=== PATIENT | female | born 1945 | race Caucasian/White ===

== ENCOUNTER → 2016-11-19 | Outpatient (CLI) | payer OTHER ==
[~2016-11-19] MED LIST: ASPEC81 PO; ASPI81TA21 PO; BIOT1TAB5 PO; CALCTAB7 PO; CLBCR60 TOP; CLC100 PO; CLOB-65 EXT; CLOB1SHA TOP; FLNIN/ NAE; LEVO100T PO; LISI-461 PO; LPR25 PO; LPT10 PO; LPT40 PO; LSN5 OR; MRLP527 PO; MULT-671 PO; NTRSLP4 SL; OPTIRAY 320 IV PRN; PLQ200 PO; PLV75 PO; PROB1CAP41 PO; SENN-65 PO; SODI1.1P PO; TBROPO OPL; VTMD1000 PO; ZOLE5INJ IV
--- NOTE | 2016-11-19 09:32 | DIAGNOSTIC IMAGING REPORT ---
HEAD CTA HISTORY: Acute loss of left-sided vision. Stroke symptoms. TECHNIQUE: Multiaxial CT images of the head were performed both before and after the intravenous administration of contrast to evaluate the major cerebral vessels. Maximum intensity projection images were also obtained. COMPARISON: Head CT 11/05/2016. FINDINGS: There is no mass, hematoma, midline shift, or acute infarct. Bilateral mastoid effusions persist. Old lacunar infarct within the right basal ganglia. Patchy periventricular white matter hypodensity is consistent with microvascular ischemic change. This also remains unchanged. Visualized intracranial internal carotid arteries, distal vertebral arteries, and basilar artery are widely patent. There is no significant stenosis, occlusion, or aneurysm seen within the bilateral ACAs, MCAs, or mold parter. The bilateral P1 segments are hypoplastic which is considered to be a normal variant. IMPRESSION: No significant stenosis, occlusion, or aneurysm within the [place]. No acute infarct or intracranial hemorrhage. Stable bilateral mastoid effusions. Electronically signed by: Tung Godinez M.D. 11/19/2016 9:31 AM
--- NOTE | 2016-11-19 09:35 | DIAGNOSTIC IMAGING REPORT ---
CT ANGIOGRAPHY OF THE NECK WITH CONTRAST CLINICAL HISTORY: Acute left-sided vision loss. Stroke syndrome. COMPARISON STUDY: Carotid ultrasound May 21, 2012 Technique: CT angiography of the carotid and vertebral arteries was obtained using [employer] 320 IV and 3D reconstruction on an independent workstation. NASCET criteria was utilized. CT DOSE: 827.36 mGy.cm Findings: The lung apices are clear. There is no cervical lymphadenopathy. No masses are identified within the neck by CT. The caliber of the aortic arch is normal. There is minimal atherosclerotic plaque of the arch. The origins of the brachiocephalic trunk, common carotid and internal carotid arteries are patent. No significant stenosis is identified. There is minimal atherosclerotic plaque within the major vasculature of the neck. The bilateral vertebral arteries are patent. The right vertebral artery is dominant. There is no dissection. Mixing artifact is noted within the proximal left internal carotid artery. IMPRESSION: 1. No stenosis within the major vessels of the neck. Minimal scattered atherosclerotic plaque. 2. Unremarkable CTA of the neck. Electronically signed by: Christian Zambrano M.D. 11/19/2016 9:33 AM
== END | disposition home or self-care (01) ==
LOC: C.CTS 08:43
PROVIDERS: ATTEND Psychiatry & Neurology Neurology
DX: H53.132 Sudden visual loss, left eye (principal); I63.9 Cerebral infarction, unspecified

== ENCOUNTER → 2016-11-22 | Outpatient (CLI) | payer OTHER ==
[~2016-11-22] MED LIST changes: -OPTIRAY 320 IV PRN
--- NOTE | 2016-11-22 13:22 | DIAGNOSTIC IMAGING REPORT ---
Brain MRI WITHOUT CONTRAST HISTORY: H53.132 Acute loss of vision, [id number] TECHNIQUE: Multiplanar multisequence MRI of the brain was performed without the use of contrast. COMPARISON STUDY: Head CTA 11/19/2016. Brain MRI 08/06/2016. FINDINGS: There is no mass, hematoma, midline shift, or acute infarct. The paranasal sinuses are clear. Chronic mastoid effusions persist.. The ventricles and sulci demonstrate mild age-related involutional changes. Scattered foci of T2 hyperintensity seen within the periventricular and subcortical white matter are nonspecific but suggestive of mild microvascular ischemic changes. This also remains unchanged. The major vascular flow voids at the skull base are well-maintained. There is an old lacunar infarct within the right basal ganglia IMPRESSION: No acute intracranial abnormality. Scattered foci of T2 hyperintensity seen within the periventricular and subcortical white matter are nonspecific but favor microvascular ischemic change. This remains unchanged. Chronic mastoid effusions. Electronically signed by: Tung Godinez M.D. 11/22/2016 1:20 PM
--- NOTE | 2016-11-22 17:15 | ECHOCARDIOGRAM REPORT ---
*NOTICE TO RECEIVING LIBERTARIAN AGENCY This information is strictly Confidential and protected under [place] law. [place] law prohibits you from making any further disclosure of this information unless further disclosure is expressly permitted by the written consent of the person to whom it pertains or is authorized by law. A general authorization for the release of medical or other information is not sufficient for this purpose. Hospital accepts no responsibility if the information is made available to any other person, INCLUDING THE PATIENT. Interpretation Summary * Name: ISADORA BOOKER Study Date: 11/22/2016 01:55 PM BP: 157/94 mmHg * Patient Location: [facility] HR: 63 * : 1945 (M/d/yyyy) Gender: Female Height: 62 in * Age: 71 yrs Ethnicity: [place] Weight: 100 lb * Ordering Physician: LEONARDO GARCIA DO * Performed By: Ana Maria Lisa RCS * * Reason For Study: ACUTE LOSS OF VISION / STROKE SYNDROME * BSA: 1.4 m2 * -- Conclusions -- * 1. Normal LV size with mild concentric LVH. * 2. Normal LV systolic function. LVEF 60-65%. No regional wall motion abnormalities. * 3. Normal RV size and function. * 4. No significant valvular pathology. * 5. Positive saline contrast study suggestive of small PFO. * 6. Grade I diastolic dysfunction. * 7. Compared with prior study on 12/30/2012: No significant changes. Procedure Details * A complete two-dimensional transthoracic echocardiogram was performed (2D, M-mode, Doppler and color flow Doppler). * A saline contrast injection was performed to assess for cardiac shunting. * The injection was performed through an intravenous line in the left arm. * The attending nurse who injected the saline contrast was CB GUAJARDO RN. * A total of 30 cc of agitated saline was given. Left Ventricle * The left ventricle is grossly normal size. * There is mild concentric left ventricular hypertrophy. * Ejection Fraction = 60-65%. Right Ventricle * The right ventricle is grossly normal size. * The right ventricular systolic function is normal as assessed by tricuspid annular plane systolic excursion (TAPSE) (normal >1.5 cm). Atria * The left atrium is mildly dilated. * Right atrial size is normal. * Contrast injected: positive for intraatrial shunt. Likely small PFO Mitral Valve * The mitral valve is grossly normal. * There is no mitral valve stenosis. * There is trace mitral regurgitation. Tricuspid Valve * The tricuspid valve is not well visualized, but is grossly normal. * There is no tricuspid stenosis. * There is trace tricuspid regurgitation. Aortic Valve * The aortic valve opens well. * The aortic valve is tricuspid. The leaflet thickness if normal. There is no aortic stenosis, and no significant insufficiency. * Aortic valve leaflets thickened * No hemodynamically significant valvular aortic stenosis. * Trace aortic regurgitation. Pulmonic Valve * The pulmonary valve is inadequately visualized, but the Doppler data is adequate for interpretation. * There is no pulmonic valvular stenosis. * There is no pulmonic valvular regurgitation. Great Vessels * The aortic root and proximal ascending aorta are normal sized. Pericardium/Pleural * There is no pericardial effusion. Great Vessels * Normal inferior vena cava size and collapsability with sniff indicates a normal right atrial pressure of 3 mmHg Left Ventricular Diastolic Function * Grade I diastolic dysfunction, (abnormal relaxation pattern). MMode 2D Measurements and Calculations IVSd 1.2 cm IVSs 1.3 cm LVIDd 3.8 cm LVIDs 2.6 cm LVPWd 1.1 cm LVPWs 1.3 cm IVS/LVPW 1.1 FS 31.5 % EDV(Teich) 62.3 ml ESV(Teich) 24.9 ml EF(Teich) 60.1 % EDV(cubed) 55.3 ml ESV(cubed) 17.8 ml EF(cubed) 67.8 % % IVS thick 8.2 % % LVPW thick 10.7 % LV mass(C)d 152.5 grams LV mass(C)dI 107.1 grams/m\S\2 LV mass(C)s 104.2 grams LV mass(C)sI 73.2 grams/m\S\2 SV(Teich) 37.5 ml SI(Teich) 26.3 ml/m\S\2 SV(cubed) 37.5 ml SI(cubed) 26.3 ml/m\S\2 Ao root diam 3.1 cm Ao root area 7.7 cm\S\2 ACS 1.6 cm LA dimension 3.1 cm LA/Ao 0.98 LVOT diam 1.9 cm LVOT area 3.0 cm\S\2 LVAd ap4 22.4 cm\S\2 LVLd ap4 6.2 cm EDV(MOD-sp4) 68.2 ml EDV(sp4-el) 68.9 ml LVAs ap4 10.1 cm\S\2 LVLs ap4 4.5 cm ESV(MOD-sp4) 21.0 ml ESV(sp4-el) 19.6 ml EF(MOD-sp4) 69.2 % EF(sp4-el) 71.6 % LVAd ap2 22.0 cm\S\2 LVLd ap2 6.6 cm EDV(MOD-sp2) 61.9 ml EDV(sp2-el) 62.6 ml LVAs ap2 11.4 cm\S\2 LVLs ap2 5.0 cm ESV(MOD-sp2) 21.6 ml ESV(sp2-el) 22.0 ml EF(MOD-sp2) 65.2 % EF(sp2-el) 64.8 % LVLd %diff 6.0 % EDV(MOD-bp) 65.0 ml LVLs %diff 11.3 % ESV(MOD-bp) 22.5 ml EF(MOD-bp) 65.3 % SV(MOD-sp4) 47.2 ml SI(MOD-sp4) 33.1 ml/m\S\2 SV(MOD-sp2) 40.4 ml SI(MOD-sp2) 28.3 ml/m\S\2 SV(MOD-bp) 42.5 ml SI(MOD-bp) 29.8 ml/m\S\2 SV(sp4-el) 49.4 ml SI(sp4-el) 34.7 ml/m\S\2 SV(sp2-el) 40.5 ml SI(sp2-el) 28.5 ml/m\S\2 Doppler Measurements and Calculations MV E max stephanie 48.0 cm/sec MV A max stephanie 59.3 cm/sec MV E/A 0.81 MV P1/2t max stephanie 54.8 cm/sec MV P1/2t 78.5 msec MVA(P1/2t) 2.8 cm\S\2 MV dec slope 204.4 cm/sec\S\2 MV dec time 0.13 sec Ao V2 max 94.2 cm/sec Ao max PG 3.5 mmHg Ao max PG (full) 1.7 mmHg GABRIEL(V,A) 2.1 cm\S\2 GABRIEL(V,D) 2.1 cm\S\2 LV V1 max PG 1.8 mmHg LV V1 max 67.9 cm/sec TR max stephanie 204.8 cm/sec
== END | disposition home or self-care (01) ==
LOC: C.CPL 12:16
PROVIDERS: ATTEND Psychiatry & Neurology Neurology
DX: H53.132 Sudden visual loss, left eye (principal); I63.9 Cerebral infarction, unspecified

== ENCOUNTER → 2017-01-28 | Outpatient (CLI) | payer OTHER ==
--- NOTE | 2017-01-29 10:57 | MAMMOGRAPHY REPORT ---
BILATERAL DIGITAL SCREENING MAMMOGRAM WITH CAD: 01/28/2017 CLINICAL HISTORY: Routine screening. Patient has no complaints. TECHNIQUE: Bilateral CC and MLO views were obtained. Current study was also evaluated with a Comput er Aided Detection (CAD) system. COMPARISON: Comparison is made to exams dated: 01/26/2016 mammogram, 01/18/2014 mammogram, 01/19/2015 ma mmogram, 01/16/2013 mammogram, 01/11/2012 mammogram, and 01/10/2011 mammogram - [facility] nter. BREAST COMPOSITION: The tissue of both breasts is extremely dense, which lowers the sensitivity of mammography. FINDINGS: There are scattered stable benign-appearing round microcalcifications. No new suspicious mass, architectural distortion or cluster of microcalcifications is seen. IMPRESSION: ACR BI-RADS CATEGORY 1: NEGATIVE There is no mammographic evidence of malignancy. A 1 year screening mammogram is recommended. The p atient will receive written notification of the results. Approximately 10% of breast cancers are not detected with mammography. A negative mammographic repor t should not delay biopsy if a clinically suggestive mass is present. Anabelle Orlando M.D. ay/:01/28/2017 17:02:55 Senior Coldfusion Developer: Jeane WASHBURN(R)(M), [facility] letter sent: Normal 1/2 BI-RADS Code: ACR BI-RADS Category 1: Negative
== END | disposition home or self-care (01) ==
LOC: C.MAMM 08:55
PROVIDERS: ATTEND Internal Medicine
DX: Z12.31 Encounter for screening mammogram for malignant neoplasm of breast (principal)

== ENCOUNTER → 2017-04-30 | Outpatient (CLI) | payer OTHER ==
--- NOTE | 2017-04-30 09:09 | DIAGNOSTIC IMAGING REPORT ---
CHEST CT WITHOUT CONTRAST CT DOSE: 191.57 mGy.cm HISTORY: R91.1 Lung [id number] TECHNIQUE: Multiaxial CT images of the chest were performed without contrast. COMPARISON: Chest CT 06/24/2016. FINDINGS: No significant change in the 5.5 mm bilobed nodule within the right upper lobe. Partial opacification of the distal right middle lobe bronchi with a small area of focal consolidation within the medial aspect of the right middle lobe. This is not significantly changed. No new focal lung consolidations. Healed inferior sternal fracture. Old, healed bilateral anterior rib fractures. The visualized spleen is unremarkable. Small hiatus hernia. No mediastinal or hilar lymphadenopathy. The heart is normal in size. Normal caliber thoracic aorta. IMPRESSION: 1. No significant change in the 5.5 mm right upper lobe bilobed nodule. This is stable dating back to a 01/30/[address] 2. No change in the partially opacified right middle lobe bronchi and small focal area of consolidation within the medial aspect of the right middle lobe. Electronically signed by: Tung Godinez M.D. 04/30/2017 9:08 AM Dictated Date/Time: 04/30/2017 8:56 AM
== END | disposition home or self-care (01) ==
LOC: C.CTS 08:02
PROVIDERS: ATTEND Internal Medicine Pulmonary Disease
DX: R91.1 Solitary pulmonary nodule (principal)

== ENCOUNTER 2017-07-12 23:09 | Inpatient (IN) | payer OTHER ==
[~2017-07-12] VITALS: Ht 157.5 cm; Wt 46.5 kg
[~2017-07-12 23:09] MED LIST changes: -ASPEC81 PO; -CLBCR60 TOP; -CLOB1SHA TOP; -LISI-461 PO; -LPR25 PO; -LPT10 PO; -LPT40 PO; -LSN5 OR; -NTRSLP4 SL; -PLV75 PO; -SENN-65 PO; -SODI1.1P PO
[2017-07-12] MEDS ORDERED: ASPIRIN 81 MG CHEW PO STA (23:24)
--- NOTE | 2017-07-12 23:39 | EMERGENCY ROOM VISIT NOTE ---
History Report prepared by Teresa: Blanka Colunga Under the Supervision of: Dr. Aaron Sims D.O. First contact with patient: 23:17 Chief Complaint: CHEST PAIN Stated Complaint: CHEST PAIN DOWN L ARM History of Present Illness The patient is a 71 year old female who presents to the Emergency Room with complaints of chest pain and pain down her left arm which started two days ago. The patient notes that she had no discomfort until she went to bed an hour ago. She states that her pain worsened and started to go into her left breast. She notes that her symptoms worsen with touch and when she is laying flat. The patient has shortness of breath when laying flat. She denies nausea or vomiting. The patient had an MRI today, which was normal. The patient has a history of Lupus, hip transplant, two strokes, and she is legally blind. The patient had a stress test a year ago. Source of History: patient Onset: 2 days ago Position: chest (left), arm (left) Timing: constant Modifying Factors (Worsening): other (touch and laying flat) Associated Symptoms: + SOB (when laying flat), No nausea, No vomiting Review of Systems See HPI for pertinent positives & negatives. A total of 10 systems reviewed and were otherwise negative. Past Medical & Surgical Medical Problems: (1) AMI (acute myocardial infarction) (2) Back surgery (3) Blood clots (right eye) (4) Diab Sil Wo Compl, Type Ii Or Unspec Type, Not Uncntrld (5) Heart disease (6) Hypertension Nos (7) Hypothyroidism Nos (8) Hysterectomy (9) Lupus (10) Personal Hx Of Tia,& Cerebral Infarction W/Out Res Deficits (11) Pneumonia Surgical Problems: (1) History of hysterectomy Family History Cancer Heart disease Hypertension Social History Smoking Status: Never Smoker Alcohol Use: occasionally, other Marital Status: Housing Status: lives with significant other Occupation Status: retired Current/Historical Medications Scheduled Atorvastatin (Atorvastatin Calcium), 10 MG PO DAILY Biotin (Biotin), 1,000 MCG PO DAILY Calcium Carbonate-Vitamin D W/ (Caltrate 600 Plus), 2 TABS PO QAM Cholecalciferol (Vitamin D3), 2,000 INTER.UNIT PO QAM Clobetasol Propionate (Clobetasol Propionate), 1 APPLN TOP 3XWK Clopidogrel Bisulfate (Clopidogrel), 75 MG PO DAILY Docusate Sodium (Docusate Sodium), 100 MG PO BID Hydroxychloroquine Sulfate (Hydroxychloroquine Sulfat), 200 MG PO HS Levothyroxine Sodium (Synthroid), 100 MCG PO QAM Lisinopril (Lisinopril), 10 MG PO DAILY Multiple Vitamins W/ Minerals (Multi Complete/Iron), 1 TAB PO DAILY Polyethylene (Polyethylene Glycol 3350), 34 GM PO QAM Probiotic Product (Probiotic Daily), 1 CAP PO QAM Sodium Fluoride (Dental) (Prevident 5000 Dry Mouth), 1 APPLN PO DAILY Scheduled PRN Clobetasol Propionate (Clobetasol Propionate), 1 APPLN TOP BID PRN for FLARES Fluticasone Propionate (Fluticasone Propionate), 2 SPRAYS PAUL DAILY PRN for Nasal Congestion Allergies Coded Allergies: Venlafaxine (Unverified Allergy, Mild, RASH, 07/13/17) Sulfa Antibiotics (Verified Allergy, Unknown, UNKNOWN REACTION TO SULFA DRUGS, 07/13/17) Physical Exam Vital Signs Date Time Temp Pulse Resp B/P (MAP) Pulse Ox O2 Delivery O2 Flow Rate FiO2 07/13/17 01:16 36.4 72 18 143/97 97 Room Air 07/13/17 00:47 36.7 86 16 183/118 100 07/13/17 00:43 183/118 07/13/17 00:26 164/116 07/13/17 00:19 86 16 100 07/13/17 00:14 87 16 95 07/13/17 00:12 168/104 07/13/17 00:11 173/107 07/12/17 23:44 83 20 07/12/17 23:39 84 18 96 Room Air 07/12/17 23:36 158/109 07/12/17 23:33 85 07/12/17 23:30 100 Room Air 07/12/17 23:30 100 Room Air 07/12/17 23:30 100 Room Air 07/12/17 23:13 36.7 85 18 136/93 100 Room Air Physical Exam GENERAL: Patient is awake, alert, and in no acute distress. Patient is resting comfortably and somewhat anxious EYES: The conjunctivae are clear. The pupils are round and reactive. EARS, NOSE, MOUTH AND THROAT: The nose is without any evidence of any deformity. Mucous membranes are moist tongue is midline NECK: The neck is nontender and supple. RESPIRATORY: Normal respiratory effort is noted there is no evidence of wheezing rhonchi or rales CARDIOVASCULAR: Regular rate and rhythm noted there no murmurs rubs or gallops normal S1 normal S2 GASTROINTESTINAL: The abdomen is soft. Bowel sounds are present in all quadrants. Abdomen is nontender MUSCULOSKELETAL/EXTREMITIES: There is no evidence of gross deformity full range of motion is noted in the hips and shoulders SKIN: There is no obvious evidence of any rash. There are no petechiae, pallor or cyanosis noted. NEUROLOGIC: Patient is awake alert and oriented x3 Medical Decision & Procedures ER Provider Diagnostic Interpretation: Radiology results as stated below per my review and radiologist interpretation: CHEST XRAY Hyper inflation, no free air, no definite infiltrate, no acute disease. Laboratory Results 07/12/17 23:31 Red Blood Count 4.09, Mean Corpuscular Volume 88.0, Mean Corpuscular Hemoglobin 31.3, Mean Corpuscular Hemoglobin Concent 35.6, Mean Platelet Volume 9.7, Neutrophils (%) (Auto) 59.9, Lymphocytes (%) (Auto) 23.7, Monocytes (%) (Auto) 14.4, Eosinophils (%) (Auto) 1.1, Basophils (%) (Auto) 0.6, Neutrophils # (Auto ) 2.13, Lymphocytes # (Auto) 0.84, Monocytes # (Auto) 0.51, Eosinophils # (Auto ) 0.04, Basophils # (Auto) 0.02 Test 07/12/17 23:31 07/12/17 23:35 07/13/17 01:22 07/13/17 01:38 White Blood Count 3.55 K/uL (4.8-10.8) Red Blood Count 4.09 M/uL (4.2-5.4) Hemoglobin 12.8 g/dL (12.0-16.0) Hematocrit 36.0 % (37-47) Mean Corpuscular Volume 88.0 fL (80-100) Mean Corpuscular Hemoglobin 31.3 pg (25-34) Mean Corpuscular Hemoglobin Concent 35.6 g/dl (32-36) Platelet Count 237 K/uL (130-400) Mean Platelet Volume 9.7 fL (7.4-10.4) Neutrophils (%) (Auto) 59.9 % Lymphocytes (%) (Auto) 23.7 % Monocytes (%) (Auto) 14.4 % Eosinophils (%) (Auto) 1.1 % Basophils (%) (Auto) 0.6 % Neutrophils # (Auto) 2.13 K/uL (1.4-6.5) Lymphocytes # (Auto) 0.84 K/uL (1.2-3.4) Monocytes # (Auto) 0.51 K/uL (0.11-0.59) Eosinophils # (Auto) 0.04 K/uL (0-0.5) Basophils # (Auto) 0.02 K/uL (0-0.2) RDW Standard Deviation 43.2 fL (36.4-46.3) RDW Coefficient of Variation 13.3 % (11.5-14.5) Immature Granulocyte % (Auto) 0.3 % Immature Granulocyte # (Auto) 0.01 K/uL (0.00-0.02) Erythrocyte Sedimentation Rate 10 mm/hr (0-21) Prothrombin Time 11.5 SECONDS (9.0-12.0) Prothromb Time International Ratio 1.1 (0.9-1.1) Activated Partial Thromboplast Time 25.6 SECONDS (21.0-31.0) Partial Thromboplastin Ratio 1.0 Est Creatinine Clear Calc Drug Dose 52.0 ml/min Total Bilirubin 0.4 mg/dl (0.2-1) Direct Bilirubin < 0.1 mg/dl (0-0.2) Aspartate Amino Transf (AST/SGOT) 44 U/L (15-37) Alanine Aminotransferase (ALT/SGPT) 23 U/L (12-78) Alkaline Phosphatase 39 U/L (45-117) Total Creatine Kinase 134 U/L (26-192) Creatine Kinase MB 6.9 ng/ml (0.5-3.6) Creatine Kinase MB Ratio 5.1 (0-3.0) Troponin I 2.110 ng/ml (0-0.045) C-Reactive Protein < 0.29 mg/dl (0-0.29) Total Protein 7.4 gm/dl (6.4-8.2) Albumin 3.9 gm/dl (3.4-5.0) Lipase 219 U/L (73-393) Bedside Troponin I 1.540 ng/ml (0-0.045) Kaolin Activated Coagulation Time 268 SECONDS (94-140) Medications Administered Medications (Trade) Dose Ordered Sig/Vini Route Start Time Stop Time Status Last Admin Dose Admin Aspirin (Aspirin Chew) 324 mg NOW STAT PO 07/12/17 23:24 07/12/17 23:27 DC 07/12/17 23:49 324 MG ECG Indication: chest pain Rate (beats per minute): 84 Rhythm: normal sinus Findings: ST elevation (V2, V3, V4) Comparison ECG Date: 11/05/16 Change: Ischemic changes new ED Course 2325: The patient was evaluated in room B4B. A complete history and physical examination were performed. 2324: Aspirin 324 mg PO. 2336: I discussed the patient's case with Dr. Pierre-[facility]. He recommends awaiting the troponin. 0027: Dr. Barton-Cardiology is evaluating the patient. Medical Decision Differential diagnosis: Etiologies such as cardiac ischemia, aortic dissection, pulmonary embolism, pneumonia, pneumothorax, musculoskeletal, infections, pericarditis, myocarditis , esophageal rupture, gastrointestinal, as well as others were entertained. Nursing notes reviewed. The patient is a 71-year-old female who presented to the emergency department for an evaluation of discomfort in her left upper extremity into her left axilla and left chest. The patient states that her symptoms have improved significantly and upon arrival to the emergency Department she states that she has no discomfort. Her initial EKG did show significant ST segment elevation which was change compared to previous EKG but the patient also describes pain which is worsened with lying flat. The patient has a history of lupus. It is possible this represents pericarditis or some other nonspecific serositis. I initially discussed her case with one of the on-call medical logistics specialist and he recommended that since the patient was not having any discomfort and her pain is positional to wait until her initial troponin returned and make a decision based on this. The patient's troponin was elevated so she was made a heart alert. I discussed her case with the on-call medical logistics specialist. He evaluated the patient in the emergency department and felt that she may be a good candidate for possible intervention so she was taken to the angiography cardiac catheterization suite. I discussed the patient's laboratory and radiographic studies with her and her significant other. They're agreeable to evaluation by the medical logistics specialist and possible cardiac catheterization. The patient was treated with aspirin. Medication Reconcilliation Current Medication List: was personally reviewed by me Consults Time Called: 2332 Consulting Physician: Dr. Pierre-[facility] Returned Call: [phone] We discussed the patient's case, he recommended waiting for the Troponin to come back. Additional Consults: Time Called: 25 Consulted Physician: Dr. Barton-Cardiology Returned Call: 26 Additional Comments: He is evaluating the patient Impression Primary Impression: Acute myocardial infarction Additional Impression: Left sided chest pain Scribe Attestation The scribe's documentation has been prepared under my direction and personally reviewed by me in its entirety. I confirm that the note above accurately reflects all work, treatment, procedures, and medical decision making performed by me. Departure Information Dispostion Being Evaluated By Hospitalist Referrals Missy Murillo M.D. (PCP) Patient Instructions My [facility] Problem Qualifiers Primary Impression: Acute myocardial infarction Myocardial infarction ST status: ST elevation myocardial infarction Involved coronary artery: unspecified coronary artery Qualified Codes: I21.3 - ST elevation (STEMI) myocardial infarction of unspecified site
[2017-07-12 23:49] LABS: BASO % 0.6 %; BASO ABS # 0.02 K/uL (0-0.2); COMPLETE YES; EOS % 1.1 %; IG% 0.3 %; LYMPH % 23.7 %; LYMPH ABS # 0.84 K/uL (1.2-3.4); MEAN CORPUSCULAR HEMOGLOBIN 31.3 pg (25-34); MEAN CORPUSCULAR HGB CONC 35.6 g/dl (32-36); MEAN PLATELET VOLUME 9.7 fL (7.4-10.4); MONO % 14.4 %; NEUT % 59.9 %; PLATELET COUNT 237 K/uL (130-400); RED BLOOD COUNT 4.09 M/uL (4.2-5.4); WHITE BLOOD COUNT 3.55 K/uL (4.8-10.8)
[2017-07-13] VITALS (18 sets, daily range): BP systolic 110–143; BP diastolic 72–97; PULSE 67–75; TEMP 36.4–36.7; O2SAT 96–100; Ht 157.5 cm; Wt 46.5 kg
[2017-07-13 00:05] LABS: INR 1.1 (0.9-1.1); PROTHROMBIN TIME (PATIENT) 11.5 SECONDS (9.0-12.0)
[2017-07-13 00:08] LABS: ALT/SGPT 23 U/L (12-78); BLOOD UREA NITROGEN 18 mg/dl (7-18); BUN/CREATININE RATIO 24.6 (10-20); CALCIUM 8.8 mg/dl (8.5-10.1); CARBON DIOXIDE 29 mmol/L (21-32); CHLORIDE 95 mmol/L (98-107); CREATININE 0.74 mg/dl (0.60-1.20); GLUCOSE 91 mg/dl (70-99); POTASSIUM 4.3 mmol/L (3.5-5.1); SODIUM 131 mmol/L (136-145)
[2017-07-13] MEDS ORDERED: PLV75 PO ×2 (00:12)
[2017-07-13] MEDS ORDERED: LISI-461 PO ×2 (00:13)
[2017-07-13] MEDS ORDERED: LPT10 PO ×2 (00:13)
[2017-07-13 00:15] LABS: ALKALINE PHOSPHATASE 39 U/L (45-117); AST/SGOT 44 U/L (15-37); CKMB/CK RATIO 5.1 (0-3.0)
[2017-07-13] MEDS ORDERED: CLOB1SHA TOP ×2 (00:17)
[2017-07-13] MEDS ORDERED: SODI1.1P PO ×2 (00:17)
[2017-07-13] MEDS ORDERED: CLBCR60 TOP ×2 (00:17)
[2017-07-13 00:27] LABS: C-REACTIVE PROTEIN < 0.29 mg/dl (0-0.29)
[2017-07-13] MEDS ORDERED: HEPARIN SOD (PORCINE) 1000 UNIT/ML 10 ML VIAL ONE (00:35)
[2017-07-13] MEDS ORDERED: MIDAZOLAM HCL 1 MG/ML 2ML VIAL ONE (00:35)
[2017-07-13] MEDS ORDERED: FENTANYL CITRATE INJ 50 MCG/1 ML 2 ML VIAL ONE (00:35)
[2017-07-13] MEDS ORDERED: NiCARDipine HCL INJ 2.5 MG/ML 10 ML AMP ONE (00:35)
[2017-07-13] MEDS ORDERED: NITROGLYCERIN/D5W 100MCG/ML 20ML SYR ONE (00:36)
[2017-07-13] MEDS ORDERED: DC ALL ANTICOAGULANTS ONE (00:45)
[2017-07-13] MEDS ORDERED: LABETALOL HCL IV 5 MG/ML 20ML IV ONE (00:59)
[2017-07-13] MEDS ORDERED: METOPROLOL TARTRATE 1 MG/ML VIAL ONE (01:06)
[2017-07-13] MEDS ORDERED: CLOPIDOGREL BISULFATE 300 MG TAB PO ONE (01:29)
[2017-07-13] MEDS ORDERED: ACETAMINOPHEN 325 MG TAB PO PRN (01:45)
[2017-07-13] MEDS ORDERED: NITROGLYCERIN 0.4 MG SL PER TAB CHARGE SL PRN (01:45)
[2017-07-13] MEDS ORDERED: ATROPINE SULFATE 0.1 MG/ML 5ML SYR IV PRN (01:45)
[2017-07-13] MEDS ORDERED: MoRPHine SULFATE 2 MG/ML CARP IV PRN (01:45)
[2017-07-13] MEDS ORDERED: ONDANSETRON INJ 2 MG/ML 2 ML VIAL IV PRN (01:45)
[2017-07-13] MEDS ORDERED: EPTIFIBATIDE BOLUS / DRIP IV ONE (01:45)
[2017-07-13] MEDS ORDERED: ONDANSETRON INJ 8 MG in DEXTROSE 5% 50ML 50 ML IV PRN (01:45)
[2017-07-13] MEDS ORDERED: EPTIFIBATIDE INJ 75 MG PREMIXED IV SCH (02:30)
[2017-07-13 03:50] LABS: BUN/CREATININE RATIO 22.4 (10-20); CALCIUM 7.7 mg/dl (8.5-10.1); CHOLESTEROL/HDL RATIO 2.3; CREATININE 0.71 mg/dl (0.60-1.20); POTASSIUM 4.1 mmol/L (3.5-5.1)
--- NOTE | 2017-07-13 05:31 | DIAGNOSTIC IMAGING REPORT ---
CHEST ONE VIEW PORTABLE CLINICAL HISTORY: 71 years-old Female presenting with CHEST PAIN. TECHNIQUE: Portable upright AP view of the chest was obtained. COMPARISON: Chest CT from 04/30/2017 and chest x-ray from 11/05/2016. FINDINGS: Atherosclerosis of aortic arch. Cardiac silhouette normal in size. Previously noted right lung nodule may also be radiographically apparent, not significant changed in size from prior CT. Minimal right middle lobe opacity may persist. No new focal infiltrate. Suggestion of hyperinflation. No large effusion or pneumothorax. Osseous structures normal. Upper abdomen normal. IMPRESSION: 1. No new focal infiltrate. 2. Suggestion of hyperinflation. Electronically signed by: George Monroe M.D. 07/13/2017 5:30 AM Dictated Date/Time: 07/13/2017 5:27 AM
[2017-07-13] MEDS ORDERED: Integrelin infusion --> STOP ORDER ONE (08:00)
[2017-07-13 08:39] LABS: ESTIMATED AVERAGE GLUCOSE 105 mg/dl; HA1C FLAG Normal (Normal)
[2017-07-13] MEDS ORDERED: ASPIRIN 81 MG ECTAB PO SCH (09:00)
[2017-07-13] MEDS: ASPIRIN 81 MG ECTAB PO SCH (09:10)
[2017-07-13] MEDS: CLOPIDOGREL BISULFATE 75 MG TAB PO SCH (09:10)
[2017-07-13] MEDS: METOPROLOL TARTRATE 25 MG TAB PO SCH ×2 (09:10→22:21)
--- NOTE | 2017-07-13 09:18 | OPERATIVE REPORT ---
DATE OF OPERATION: 07/13/2017 INDICATION: Acute versus subacute anterolateral myocardial infarction, [place] Cardiovascular class 4 resting angina, no congestive heart failure, no stress test. PROCEDURE PERFORMED: Left heart cath, coronary cineangiography, percutaneous coronary intervention with drug-eluting stent times five (5) left anterior descending artery. Radiological interpretation and supervision method. Upon arrival in the laboratory mechanic helper, the patient was prepped and draped in the usual sterile fashion. INDICATION FOR PROCEDURES: [place] Cardiovascular class 4 resting anginal chest discomfort without heart failure in a 71-year-old female presenting days after onset of left arm pain. METHOD: Prepped and draped in usual sterile fashion. A 6-Citizen [place] sheath in right femoral artery. A 6-Citizen [place] EBU 3.5 guiding catheter was advanced under fluoroscopic guidance to the central circulation where it was aspirated and flushed after confirmation of adequate waveform was advanced into the left main. Cineangiography left anterior descending artery obtained and reviewed. Intravenous heparin was administered. A 0.014-inch Patient Care Technician wire was advanced through the guiding catheter across the area of stenosis to the apical LAD. A 2.0 x 15 angioplasty catheter positioned proximal LAD and then mid LAD, each inflation to maximum pressure less than 1 minute. Subsequent cineangiograms demonstrated no reflow. Intravenous Integrilin was administered by double bolus and maintenance infusion. A 2.25 x 15 drug-eluting stent was positioned in the mid LAD jailing a very small diagonal branch and inflated to maximum pressure less 1 minute. Balloon was withdrawn. A 2.5 x 15 drug-eluting stent was positioned in the proximal left anterior descending artery, inflated to max pressure less than 1 minute. Balloon was withdrawn. A 2.25 x 8 drug-eluting stent was positioned between the 2 and inflated to maximum pressure less than 1 minute. Balloon was withdrawn. Stented segment was postdilated using a 2.5 noncompliant 15 mm balloon to maximum pressure less than 1 minute. Subsequent cineangiogram suggested either stenosis versus spasm versus cap dissection distal to the most distal of the 3 stents. Thus a two (2) 2.25 x 12 stents were positioned in the mid LAD and inflated to maximum pressure less than 1 minute. Balloon was withdrawn. Intracoronary nitroglycerin was administered. Final cineangiograms were obtained and the wire was removed from the coronary artery guiding catheter through the left main under fluoroscopic guidance and removed from the body over wire and sheath was aspirated and flushed. A 6-Citizen [place] diagnostic JL4 catheter was advanced under fluoroscopic guidance to the central circulation where it was aspirated and flushed. After confirmation of adequate waveform was advanced into the right coronary artery. Cineangiograms of the right coronary artery were reviewed. The catheters were removed from the body over wire and sheath was aspirated and flushed. A 6-Citizen [place] angled pigtail was used to cross the aortic valve and left ventricular end diastolic pressure was measured. The catheter was removed from the left ventricle to the aorta under continuous pressure monitor removed from the body over wire. The sheath was aspirated and flushed. An Angio-Seal was deployed right femoral artery. The patient was returned to her room in good condition. COMPLICATIONS: None. FINDINGS: Left main is normal. Left anterior descending artery, small to moderate in caliber with a proximal subtotal occlusion, mid subtotal occlusion involving a small second diagonal branch. Relatively diffuse disease of the proximal to mid segment is noted. First and second diagonal branches are small and diffusely diseased. Left circumflex, circumflex marginal and posterolateral branches are free of significant disease. Right coronary artery is small to moderate in caliber and dominant with no significant stenosis present. Left ventricular end diastolic pressure is normal. No significant aortic valve gradient is demonstrated. Final cineangiograms demonstrated no residual stenosis, no uncovered dissection with JUSTA grade 3 flow throughout the right coronary artery. IMPRESSION: Successful angioplasty drug-eluting stent placement, left anterior descending artery. Recommendation for aspirin plus Plavix for a minimum of 1 full year, reassess at that time based on dual antiplatelet therapy score. I attest to the content of the Intraoperative Record and any orders documented therein. Any exceptions are noted below. NARDA
[2017-07-13] MEDS ORDERED: NURSING VERBAL MED ORDER ONE (09:30)
[2017-07-13] MEDS ORDERED: FLUTICASONE PROPIONATE NA SPR 16 GM BTL NAE PRN (11:45)
[2017-07-13] MEDS: LEVOTHYROXINE 100 MCG TAB PO SCH (11:52)
--- NOTE | 2017-07-13 12:14 | Critical Care Consultation ---
Critical Care Consultation Date of Consultation: Jul 13, 2017. Attending Physician: Magdiel Greene M.D. Reason for Consultation: ST elevation [place] History of Present Illness This is a 71 year old female with h/o lupus, ex-smoker, POD#0 s/p cardiac catheterization with placement of 5 stents in the LAD. Her symptoms started 3 days ago when she developed chest pain, it resolved, but reoccurred last night, was persistent and sought medical attention. Denies shortness of breath, was nauseous but no vomiting. Groin sheaths have been removed, and she ambulated since. Past Medical/Surgical History SLE since 1978 Blindness/CVA HTN Hypothyroidism Hysterectomy Hip replacement Back surgery Family History Cancer Heart disease Hypertension Mother- cancer of the uterus and thyroid, lymphoma Father - CAD, [place], CABG, CVA Social History Smoking Status: Former Smoker (smoked for 28 years, quit in 1988, light- moderate) Marital Status: Housing Status: lives with significant other Occupation Status: retired Allergies Coded Allergies: Venlafaxine (Unverified Allergy, Mild, RASH, 07/13/17) Sulfa Antibiotics (Verified Allergy, Unknown, UNKNOWN REACTION TO SULFA DRUGS, 07/13/17) Home Medications Scheduled Atorvastatin (Atorvastatin Calcium), 10 MG PO DAILY Biotin (Biotin), 1,000 MCG PO DAILY Calcium Carbonate-Vitamin D W/ (Caltrate 600 Plus), 2 TABS PO QAM Cholecalciferol (Vitamin D3), 2,000 INTER.UNIT PO QAM Clobetasol Propionate (Clobetasol Propionate), 1 APPLN TOP 3XWK Clopidogrel Bisulfate (Clopidogrel), 75 MG PO DAILY Docusate Sodium (Docusate Sodium), 100 MG PO BID Hydroxychloroquine Sulfate (Hydroxychloroquine Sulfat), 200 MG PO HS Levothyroxine Sodium (Synthroid), 100 MCG PO QAM Lisinopril (Lisinopril), 10 MG PO DAILY Multiple Vitamins W/ Minerals (Multi Complete/Iron), 1 TAB PO DAILY Polyethylene (Polyethylene Glycol 3350), 34 GM PO QAM Probiotic Product (Probiotic Daily), 1 CAP PO QAM Sodium Fluoride (Dental) (Prevident 5000 Dry Mouth), 1 APPLN PO DAILY Scheduled PRN Clobetasol Propionate (Clobetasol Propionate), 1 APPLN TOP BID PRN for FLARES Fluticasone Propionate (Fluticasone Propionate), 2 SPRAYS PAUL DAILY PRN for Nasal Congestion Current Inpatient Medications Current Inpatient Medications Medications (Trade) Dose Ordered Sig/Vini Route Start Time Stop Time Status Last Admin Dose Admin Nitroglycerin (Nitrostat Tab) 0.4 mg UD PRN SL 07/13/17 01:45 08/12/17 01:44 Atropine Sulfate (Atropine Sulfate 0.1MG/Ml Inj) 0.5 mg ONE PRN IV 07/13/17 01:45 08/12/17 01:44 Ondansetron HCl (Zofran Inj) 4 mg Q6H PRN IV 07/13/17 01:45 08/12/17 01:44 Ondansetron HCl 8 mg/Dextrose 54 ml @ 200 mls/hr Q6H PRN IV 07/13/17 01:45 08/12/17 01:44 Clopidogrel Bisulfate (plAVix TAB) 75 mg QAM PO 07/13/17 09:00 08/12/17 08:59 07/13/17 09:10 75 MG Metoprolol Tartrate (Lopressor Tab) 25 mg Q12 PO 07/13/17 09:00 08/12/17 08:59 07/13/17 09:10 25 MG Acetaminophen (Tylenol Tab) 650 mg Q4H PRN PO 07/13/17 01:45 08/12/17 01:44 Morphine Sulfate (MoRPHine SULFATE INJ) 2 mg Q5M PRN IV 07/13/17 01:45 07/27/17 01:44 Aspirin (Ecotrin Tab) 81 mg QAM PO 07/13/17 09:00 08/12/17 08:59 07/13/17 09:10 81 MG Levothyroxine Sodium (Synthroid Tab) 100 mcg DAILYBB PO 07/13/17 11:00 08/12/17 10:59 Calcium/Vitamin D (Caltrate Plus Tab) 2 tab QAM PO 07/14/17 09:00 08/13/17 08:59 UNV Cholecalciferol (Vitamin D Tab) 2,000 inter.unit QAM PO 07/14/17 09:00 08/13/17 08:59 UNV Docusate Sodium (coLACE CAP) 100 mg BID PO 07/13/17 21:00 08/12/17 20:59 UNV Fluticasone Propionate (Flonase Nasal Alfred) 2 sprays DAILY PRN PAUL 07/13/17 11:45 08/12/17 11:44 UNV Hydroxychloroquine Sulfate (Plaquenil Tab) 200 mg HS PO 07/13/17 21:00 08/12/17 20:59 UNV Lisinopril (Zestril Tab) 10 mg DAILY PO 07/14/17 09:00 08/13/17 08:59 UNV Multivitamins/ Minerals (Multivitamin W/ Minerals Tab) 1 tab DAILY PO 07/14/17 09:00 08/13/17 08:59 UNV Review of Systems Per HPI, all other systems reviewed and negative Physical Exam Date Time Temp Pulse Resp B/P (MAP) Pulse Ox O2 Delivery O2 Flow Rate FiO2 07/13/17 10:00 36.7 67 17 126/86 (99) 99 Room Air 07/13/17 08:00 Room Air 07/13/17 06:00 73 17 116/77 (90) 99 Room Air 07/13/17 05:00 68 17 110/72 (85) 97 Room Air 07/13/17 04:00 97 Room Air 07/13/17 04:00 70 16 121/81 (94) 97 Room Air 07/13/17 03:30 72 17 127/84 (98) 97 Room Air 07/13/17 03:00 72 16 137/94 (108) 100 Room Air 07/13/17 02:45 72 18 133/90 (104) 99 Room Air 07/13/17 02:30 71 17 142/97 (112) 99 Room Air 07/13/17 02:15 72 20 143/94 (110) 100 Room Air 07/13/17 02:00 36.4 70 20 143/97 (112) 99 Room Air 07/13/17 01:16 36.4 72 18 143/97 97 Room Air 07/13/17 00:47 36.7 86 16 183/118 100 07/13/17 00:43 183/118 07/13/17 00:26 164/116 07/13/17 00:19 86 16 100 07/13/17 00:14 87 16 95 07/13/17 00:12 168/104 07/13/17 00:11 173/107 07/12/17 23:44 83 20 07/12/17 23:39 84 18 96 Room Air 07/12/17 23:36 158/109 07/12/17 23:33 85 07/12/17 23:30 100 Room Air 07/12/17 23:30 100 Room Air 07/12/17 23:30 100 Room Air 07/12/17 23:13 36.7 85 18 136/93 100 Room Air General - Thin female, NAD Heent - NC, AT Neck - supple, trachea midline Lungs - Clear to auscultation b/l CVS - S1S2 regular, no audible murmurs Abd - soft, NT, ND Back - mild scoliosis Ext - Right groing without hematoma, palpable 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 Laboratory Results Last 24 Hours Test 07/12/17 23:31 07/12/17 23:35 07/13/17 00:12 07/13/17 00:57 White Blood Count 3.55 K/uL Red Blood Count 4.09 M/uL Hemoglobin 12.8 g/dL Hematocrit 36.0 % Mean Corpuscular Volume 88.0 fL Mean Corpuscular Hemoglobin 31.3 pg Mean Corpuscular Hemoglobin Concent 35.6 g/dl Platelet Count 237 K/uL Mean Platelet Volume 9.7 fL Neutrophils (%) (Auto) 59.9 % Lymphocytes (%) (Auto) 23.7 % Monocytes (%) (Auto) 14.4 % Eosinophils (%) (Auto) 1.1 % Basophils (%) (Auto) 0.6 % Neutrophils # (Auto) 2.13 K/uL Lymphocytes # (Auto) 0.84 K/uL Monocytes # (Auto) 0.51 K/uL Eosinophils # (Auto) 0.04 K/uL Basophils # (Auto) 0.02 K/uL RDW Standard Deviation 43.2 fL RDW Coefficient of Variation 13.3 % Immature Granulocyte % (Auto) 0.3 % Immature Granulocyte # (Auto) 0.01 K/uL Erythrocyte Sedimentation Rate 10 mm/hr Prothrombin Time 11.5 SECONDS Prothromb Time International Ratio 1.1 Activated Partial Thromboplast Time 25.6 SECONDS Partial Thromboplastin Ratio 1.0 Sodium Level 131 mmol/L Potassium Level 4.3 mmol/L Chloride Level 95 mmol/L Carbon Dioxide Level 29 mmol/L Anion Gap 7.0 mmol/L Blood Urea Nitrogen 18 mg/dl Creatinine 0.74 mg/dl Est Creatinine Clear Calc Drug Dose 52.0 ml/min Estimated GFR () 95.8 Estimated GFR (Non- 82.7 BUN/Creatinine Ratio 24.6 Random Glucose 91 mg/dl Calcium Level 8.8 mg/dl Total Bilirubin 0.4 mg/dl Direct Bilirubin < 0.1 mg/dl Aspartate Amino Transf (AST/SGOT) 44 U/L Alanine Aminotransferase (ALT/SGPT) 23 U/L Alkaline Phosphatase 39 U/L Total Creatine Kinase 134 U/L Creatine Kinase MB 6.9 ng/ml Creatine Kinase MB Ratio 5.1 Troponin I 2.110 ng/ml C-Reactive Protein < 0.29 mg/dl Total Protein 7.4 gm/dl Albumin 3.9 gm/dl Lipase 219 U/L Bedside Troponin I 1.540 ng/ml Estimated Average Glucose 105 mg/dl Hemoglobin A1c 5.3 % Kaolin Activated Coagulation Time 114 SECONDS Test 07/13/17 01:22 07/13/17 03:14 07/13/17 11:19 Kaolin Activated Coagulation Time 268 SECONDS Sodium Level 132 mmol/L Potassium Level 4.1 mmol/L Chloride Level 98 mmol/L Carbon Dioxide Level 27 mmol/L Anion Gap 7.0 mmol/L Blood Urea Nitrogen 16 mg/dl Creatinine 0.71 mg/dl Est Creatinine Clear Calc Drug Dose 55.3 ml/min Estimated GFR () 100.7 Estimated GFR (Non- 86.9 BUN/Creatinine Ratio 22.4 Random Glucose 96 mg/dl Calcium Level 7.7 mg/dl Magnesium Level 2.0 mg/dl Triglycerides Level 26 mg/dl Cholesterol Level 131 mg/dl HDL Cholesterol 58 mg/dl LDL Cholesterol Direct 70 mg/dl LDL Cholesterol, Calculated 68 mg/dl VLDL Cholesterol, Calculated 5 mg/dl Cholesterol/HDL Ratio 2.3 Diagnostic Results CXR - Atherosclerosis of aortic arch. Cardiac silhouette normal in size. Previously noted right lung nodule may also be radiographically apparent, not significant changed in size from prior CT. Minimal right middle lobe opacity may persist. No new focal infiltrate. Suggestion of hyperinflation. No large effusion or pneumothorax. Osseous structures normal. Upper abdomen normal. Assessment & Plan Problems: STEMI, s/p MARY x 5 in LAD SLE HTN Plan: Continue ASA and Plavix Started on beta-maría. Continue TOSHIA inhibitors On statin, Lipitor at 40 mg F/u echo report, but I understand she has depressed LV function. To follow up as outpatient, hopefully it will continue to improve Resumed levothyroxine Resume Plaquenil Ambulate Time spent with patient and rounding greater than 25 minutes Jaret Tran MD
[2017-07-13] MEDS ORDERED: LISINOPRIL 10 MG TAB PO ONE (12:18)
--- NOTE | 2017-07-13 13:30 | ECHOCARDIOGRAM REPORT ---
*NOTICE TO RECEIVING [employer] This information is strictly Confidential and protected under [place] law. [place] law prohibits you from making any further disclosure of this information unless further disclosure is expressly permitted by the written consent of the person to whom it pertains or is authorized by law. A general authorization for the release of medical or other information is not sufficient for this purpose. Hospital accepts no responsibility if the information is made available to any other person, INCLUDING THE PATIENT. Interpretation Summary * Name: ISADORA BOOKER Study Date: 07/13/2017 06:42 AM BP: 116/77 mmHg * Patient [facility] HR: 73 * : 1945 (M/d/yyyy) Gender: Female Height: 62 in * Age: 71 yrs Ethnicity: [place] Weight: 101 lb * Referring Physician: COLLIN * Performed By: Niki Rodriguez RDCS * * Reason For Study: AMI * BSA: 1.4 m2 * -- Conclusions -- * The left ventricle is normal in size. * There is borderline concentric left ventricular hypertrophy. * There is severe hypokinesis of the LAD distribution territory including the entire septum and apex without thinning or scar. * Left ventricular systolic function is moderately reduced. * Ejection Fraction = 35-40%. * There is mild to moderate mitral regurgitation. * There is trace tricuspid regurgitation. * Doppler findings do not suggest pulmonary hypertension. Procedure Details * A complete two-dimensional transthoracic echocardiogram was performed (2D, M-mode, Doppler and color flow Doppler). Left Ventricle * The left ventricle is normal in size. * There is borderline concentric left ventricular hypertrophy. * Ejection Fraction = 35-40%. * Left ventricular systolic function is moderately reduced. * There is severe hypokinesis of the LAD distribution territory including the entire septum and apex without thinning or scar. Right Ventricle * The right ventricle is normal in size and function. Atria * The left atrial size is normal. * Right atrial size is normal. * No ASD detected; PFO is not assessed. Mitral Valve * The mitral valve leaflets are mildly thickened * There is no mitral valve stenosis. * There is mild to moderate mitral regurgitation. Tricuspid Valve * The tricuspid valve anatomy is normal. * There is no tricuspid stenosis. * There is trace tricuspid regurgitation. * Doppler findings do not suggest pulmonary hypertension. Aortic Valve * The aortic valve is trileaflet. * No hemodynamically significant valvular aortic stenosis. * No aortic regurgitation is present. Pulmonic Valve * The pulmonic valve is not well visualized. Great Vessels * The aortic root is normal size. Pericardium/Pleural * There is no pericardial effusion. Great Vessels * Normal inferior vena cava diameter and respiratory variation suggests normal central venous pressure. MMode 2D Measurements and Calculations IVSd 1.0 cm IVSs 1.4 cm LVIDd 4.0 cm LVIDs 3.0 cm LVPWd 1.2 cm LVPWs 1.3 cm IVS/LVPW 0.82 FS 24.7 % EDV(Teich) 70.3 ml ESV(Teich) 35.5 ml EF(Teich) 49.4 % EDV(cubed) 64.4 ml ESV(cubed) 27.5 ml EF(cubed) 57.2 % % IVS thick 43.2 % % LVPW thick 9.4 % LV mass(C)d 147.9 grams LV mass(C)dI 103.4 grams/m\S\2 LV mass(C)s 138.8 grams LV mass(C)sI 97.1 grams/m\S\2 SV(Teich) 34.8 ml SI(Teich) 24.3 ml/m\S\2 SV(cubed) 36.8 ml SI(cubed) 25.8 ml/m\S\2 Ao root diam 2.5 cm Ao root area 5.0 cm\S\2 LA dimension 3.1 cm LA/Ao 1.2 LVAd ap4 25.5 cm\S\2 LVLd ap4 7.2 cm EDV(MOD-sp4) 76.3 ml EDV(sp4-el) 76.8 ml LVAs ap4 17.1 cm\S\2 LVLs ap4 6.5 cm ESV(MOD-sp4) 37.5 ml ESV(sp4-el) 37.9 ml EF(MOD-sp4) 50.9 % EF(sp4-el) 50.7 % LVAd ap2 23.1 cm\S\2 LVLd ap2 7.4 cm EDV(MOD-sp2) 60.0 ml EDV(sp2-el) 61.7 ml LVAs ap2 16.4 cm\S\2 LVLs ap2 6.8 cm ESV(MOD-sp2) 32.0 ml ESV(sp2-el) 33.4 ml EF(MOD-sp2) 46.7 % EF(sp2-el) 46.0 % LVLd %diff 2.5 % EDV(MOD-bp) 66.8 ml LVLs %diff 4.1 % ESV(MOD-bp) 35.3 ml EF(MOD-bp) 47.1 % SV(MOD-sp4) 38.9 ml SI(MOD-sp4) 27.2 ml/m\S\2 SV(MOD-sp2) 28.0 ml SI(MOD-sp2) 19.6 ml/m\S\2 SV(MOD-bp) 31.4 ml SI(MOD-bp) 22.0 ml/m\S\2 SV(sp4-el) 38.9 ml SI(sp4-el) 27.2 ml/m\S\2 SV(sp2-el) 28.4 ml SI(sp2-el) 19.8 ml/m\S\2 Doppler Measurements and Calculations MV E max stephanie 65.0 cm/sec MV A max stephanie 55.3 cm/sec MV E/A 1.2 MV dec time 0.15 sec Ao V2 max 99.9 cm/sec Ao max PG 4.0 mmHg Ao max PG (full) 2.1 mmHg LV V1 max PG 1.8 mmHg LV V1 max 67.9 cm/sec TR max stephanie 231.7 cm/sec
--- NOTE | 2017-07-13 13:35 | CARDIOLOGY CONSULTATION ---
DATE OF CONSULTATION: 07/13/2017 DATE OF CONSULTATION: 07/13/2017 REFERRING: Dr. Greene. PRIMARY CARE PHYSICIAN: Dr. Murillo. INDICATIONS: Acute anterior myocardial infarction. HISTORY OF PRESENT ILLNESS: The patient is a 71-year-old female with underlying history notable for SLE, hypertension, dyslipidemia, chronic back pain, history of SIADH, who was admitted noting symptoms of several days' duration of lightheadedness and dizziness and fatigue evening of admission; however, patient developed new symptoms of severe chest pressure and arm radiating to left shoulder and down into the elbow. Symptoms are worse while lying flat, also worsened on movement. She presented to the Emergency Room where initial ST segment elevation was noted anterior precordial leads and patient was referred emergently to cardiac catheterization lab. Per review of records and images patient underwent emergent coronary intervention for subtotal occlusion 99% of the mid left anterior descending, there is diffuse disease within a diagonal branch as well. The patient had successful coronary intervention, though with transient no flow situation observed. Post-procedure patient felt immediately better by her own description. She denies fevers, chills, sweats. Notes no recent melena, hematochezia or bleeding difficulties. She does carry a history of possible past TIA as well as history of recurrent retinal artery occlusions and is on chronic antiplatelet therapy with clopidogrel. Underlying medical issues include also in addition to above, diabetes mellitus, hypothyroidism, currently patient is examined and she notes no further chest pains or discomfort. Notes no arm pain. Notes no dizziness or lightheadedness. Was able to eat this morning without difficulty. ALLERGIES: NOTED TO BE EFFEXOR AND SULFA. MEDICATIONS: Prior to hospitalization were Synthroid 100 mcg p.o. every day, Plaquenil 200 mg at bedtime, levothyroxine 100 mcg p.o. every day, Claritin 10 mg p.o. daily, lisinopril 10 mg p.o. daily, docusate sodium 100 mg b.i.d., MiraLax p.r.n., clopidogrel 75 mg per day, atorvastatin 10 mg p.o. daily, probiotic, vitamin D and calcium and multivitamin supplements PAST SURGICAL HISTORY: Notable for prior hysterectomy, past hip replacement, lumbar spine decompression L3 through 5 in April 2015 with past laminectomy in 2010. FAMILY HISTORY: Positive for heart disease. SOCIAL HISTORY: The patient is a nonsmoker, nondrinker. She is "legally blind", but tends to be active about her home as tolerated. PHYSICAL EXAMINATION: VITAL SIGNS: Heart rate 67, blood pressure 126/86. HEAD, EYES, EARS, NOSE, AND THROAT: Normocephalic, atraumatic. Nares without discharge. Throat was clear. NECK: Thin. There are no carotid bruits. LUNGS: Clear. CARDIOVASCULAR EXAMINATION: Regular with normal S1, S2. There is no audible murmur or rub. ABDOMEN: Soft, nontender. There is no palpable hepatosplenomegaly. Right groin puncture sites has surrounding ecchymosis without hematoma or bruit. There are intact distal pulses at 2/4. NEUROLOGIC: The patient alert and answering questions appropriately. DATA: EKG on initial presentation revealed sinus rhythm with Q-waves V1, V2 and ST elevation V1 through V3. Repeat EKG this morning reveals gradual evolution echocardiogram on preliminary review reveals anteroseptal and apical wall motion abnormality. Repeat troponin this morning is 9.3. Chest x-ray reveals no infiltrate or edema, coronary angiography as per HPI demonstrated subtotal occlusion of the mid left anterior descending with diffusely diseased left anterior descending diagonal. There are moderate irregularities in the left circumflex and right coronary artery without obstruction, most significant lesion 30-40%. IMPRESSION: A 71-year-old female status post emergent coronary intervention for acute anterior myocardial infarction, question initial event last evening versus stuttering event for 3 days given preadmission symptoms. She is clinically improved this morning. Symptoms have resolved. Echocardiogram demonstrates LAD distribution area of severe hypokinesis with moderate left ventricular dysfunction. RECOMMENDATIONS: Continue aspirin and clopidogrel as already ordered with anticipation of continued aspirin and clopidogrel minimum 1 year, beta maría has been added metoprolol 25 mg q. 12. Will continue prior dosing of lisinopril and increase atorvastatin to 40 mg per day as ordered. Will follow patient in the hospital, formally review echocardiogram, anticipate cardiac rehab referral. NARDA
--- NOTE | 2017-07-13 13:37 | HISTORY & PHYSICAL EXAMINATION ---
DATE OF ADMISSION: 07/13/2017 PRIMARY CARE PROVIDER: Dr. Murillo. CHIEF COMPLAINT: The patient was brought into the Emergency Room with acute onset chest pain last evening while she was not doing anything. Apparently she has had similar kind of chest pain 2 days before, that relieved spontaneously. 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 She is status post cardiac catheterization and she was noted to have LAD stenosis and she has had about 5 stent placements and following that she was brought into the ICU for continuation of the care. She received adequate treatment for STEMI including Integrilin, Plavix and aspirin, which will be continued for at least 1 year. In the ICU, she is not having any chest pain. She remains in sinus rhythm without arrhythmias. She does not have any shortness of breath, any cough, any phlegm, any abdominal pain, nausea or vomiting. She does not have any numbness or tingling in the extremities and her catheterization site in the right groin is not showing any hematoma or any other problem. PAST MEDICAL HISTORY: Significant for SIADH, SLE, history of stroke without any sequela, acquired hypothyroidism, allergic rhinitis, hypertension, hyperlipidemia, Raynaud disease. PAST SURGICAL HISTORY: Significant for back surgery in 2010, total abdominal hysterectomy, removal of tubes in 1985 and total hip replacement and prosthesis in 2012. FAMILY HISTORY: Significant that father had ischemic heart disease and has had heart attack at the age of 35-40. Mother had lymphoma. SOCIAL HISTORY: She is . She has 2 children. She quit smoking in 1985. She uses alcohol occasionally and she has been reasonably active. ALLERGIES: ALLERGIC TO SULFA ANTIBIOTIC AND VENLAFAXINE. MEDICATIONS: As an outpatient, she has been on atorvastatin 10 mg daily, calcium with vitamin D 2 tablets in the morning, vitamin D3 2000 units daily, Plavix 75 mg daily, docusate sodium 100 mg daily, Flonase nasal spray 2 sprays each nostril daily, hydroxychloroquine 200 mg at night, levothyroxine 100 mcg daily, lisinopril 10 mg daily, multivitamin 1 tablet daily, biotin 1000 mcg daily, clobetasol propionate 1 application topical 3 times a week, MiraLax as directed, probiotic as directed. REVIEW OF SYSTEMS: Total 10-point review of systems unremarkable except those mentioned in history of present complaint. PHYSICAL EXAMINATION: GENERAL: In the ICU, she was not having any acute distress. VITAL SIGNS: Temperature 36.7, pulse of 67 and regular, blood pressure 126/86, saturation 99% on room air. HEENT: Unremarkable. NECK: Supple. No JVD, no bruit. CHEST: Clear to auscultate bilaterally. HEART: S1, S2 regular. No murmur appreciated. ABDOMEN: Soft, benign, nontender, no organomegaly. Bowel sounds present. EXTREMITIES: No edema. Examination of the local site of catheterization minimally tender but no hematoma and/or swelling. CENTRAL NERVOUS SYSTEM: She was alert, awake, oriented x3 and no focal sensory and/or motor deficit appreciated. LABORATORY DATA: Noted today, white count was 3.55, H&H 12.8/36.0, platelet was 237, that was from yesterday. Chemistry: Sodium 132, potassium 4.1, chloride 98, CO2 27, BUN 16, creatinine 0.71, hemoglobin A1c 5.3, random glucose 96, calcium 7.7. Triglycerides 26. Cholesterol 131, HDL 58. INR 1.1, PTT ratio 1.0. Chest x-ray that was done yesterday, no new focal infiltration. EKG that was done yesterday did show sinus rhythm with rate of 84 per minute, normal axis, significant ST elevation with associated T-wave changes involving V1-3 leads. EKG that was done this morning, still showing minimal ST elevation with terminal T-wave inversion involving anterior leads have decreased. IMPRESSION AND PLAN: 1. Anterior ST myocardial infarction status post left anterior descending stent placement. The patient remains stable in ICU, has had appropriate medications. We will continue with aspirin and Plavix for at least 1 year. She has been getting beta maría and also TOSHIA inhibitor. Echocardiogram will be done and cardiology evaluation while in the hospital. 2. History of stroke, has been on Plavix and beta maría before. No new symptoms from that stroke and no residual from the stroke. We will monitor. Aspirin added which will have additive effect. 3. Systemic lupus erythematosus, no acute symptoms at this time. Has been on chloroquine at night, will continue with that. She does not have any renal impairment or any joint problem at this time. 4. History of syndrome of inappropriate antidiuretic hormone secretion. Her sodium level is 132 today, which seems to be in the lower limit. We will follow and monitor PRP while in the hospital. 5. Hypertension. Blood pressure seems to be stable. Continue with current medications including beta maría and TOSHIA inhibitor. 6. Hyperlipidemia, has been on atorvastatin. We will continue with that. Most likely, doses will be increased to 40 mg daily. 7. Gastrointestinal prophylaxis with Protonix. 8. Deep venous thrombosis prophylaxis with subcutaneous heparin. 9. Code status -- She will be a full code. In my clinical judgment, the beneficiary meets criteria as per CMS for 2-midnight stay in the hospital. MTDD
[2017-07-13] MEDS: HEPARIN SOD 5000 UNIT/0.5 ML CARP SQ SCH ×2 (13:43→22:08)
[2017-07-13] MEDS: POLYETHYLENE (MIRALAX) 17 GM PACK PO SCH (21:43)
[2017-07-13] MEDS: DOCUSATE SODIUM 100 MG CAP PO SCH (22:03)
[2017-07-13] MEDS: HYDROXYCHLOROQUINE SULFATE 200 MG TAB PO SCH (22:03)
[2017-07-13] MEDS: CALCIUM 600MG + VIT D 400 IU TAB PO SCH (22:04)
[2017-07-14] VITALS (12 sets, daily range): BP systolic 115–128; BP diastolic 74–86; PULSE 62–75; TEMP 36.3–36.8; O2SAT 97–100
[2017-07-14] MEDS: LEVOTHYROXINE 100 MCG TAB PO SCH (06:05)
[2017-07-14] MEDS: HEPARIN SOD 5000 UNIT/0.5 ML CARP SQ SCH ×3 (06:10→21:25)
[2017-07-14 06:25] LABS: BASO % 0.6 %; BASO ABS # 0.02 K/uL (0-0.2); COMPLETE YES; EOS % 1.5 %; HEMATOCRIT 30.6 % (37-47); IG% 0.3 %; LYMPH % 16.7 %; LYMPH ABS # 0.56 K/uL (1.2-3.4); MEAN CELL VOLUME 88.4 fL (80-100); MEAN CORPUSCULAR HEMOGLOBIN 29.8 pg (25-34); MEAN CORPUSCULAR HGB CONC 33.7 g/dl (32-36); MEAN PLATELET VOLUME 9.4 fL (7.4-10.4); MONO % 14.6 %; NEUT % 66.3 %; PLATELET COUNT 193 K/uL (130-400); RED BLOOD COUNT 3.46 M/uL (4.2-5.4); WHITE BLOOD COUNT 3.35 K/uL (4.8-10.8)
[2017-07-14 07:08] LABS: BUN/CREATININE RATIO 20.1 (10-20); CALCIUM 8.5 mg/dl (8.5-10.1); CREATININE 0.76 mg/dl (0.60-1.20); MAGNESIUM 2.1 mg/dl (1.8-2.4); POTASSIUM 4.8 mmol/L (3.5-5.1)
[2017-07-14] MEDS: ATORVASTATIN 40 MG TAB PO SCH (08:12)
[2017-07-14] MEDS: LISINOPRIL 10 MG TAB PO SCH (08:13)
[2017-07-14] MEDS: DOCUSATE SODIUM 100 MG CAP PO SCH ×2 (08:13→21:07)
[2017-07-14] MEDS: METOPROLOL TARTRATE 25 MG TAB PO SCH ×2 (08:13→21:07)
[2017-07-14] MEDS: POLYETHYLENE (MIRALAX) 17 GM PACK PO SCH ×2 (08:16→21:07)
[2017-07-14] MEDS: CHOLECALCIFEROL 1000 INTER.UNIT TAB PO SCH (09:29)
[2017-07-14] MEDS: CALCIUM 600MG + VIT D 400 IU TAB PO SCH ×2 (09:33→21:07)
[2017-07-14] MEDS: CEROVITE ADV FORMULA TAB PO SCH (09:33)
[2017-07-14] MEDS: CLOPIDOGREL BISULFATE 75 MG TAB PO SCH (09:34)
[2017-07-14] MEDS: ASPIRIN 81 MG ECTAB PO SCH (09:34)
--- NOTE | 2017-07-14 11:49 | CARDIOLOGY PROGRESS NOTE ---
DATE: 07/14/2017 CARDIOLOGY CONSULTATION FOLLOWUP NOTE The patient was seen and examined. Chart, medications, and telemetry were reviewed. SUBJECTIVE: The patient this morning subjectively feels well. Was ambulatory in the hallway this morning and last night. Notes no chest pain or shortness of breath. Does become fatigued somewhat with exertion, but overall has been feeling well. Notes no bleeding difficulties. Notes no melena, hematochezia, dysuria or hematuria. Appetite has been good. She is tolerating her current medications. OBJECTIVE: VITAL SIGNS: Heart rate 62. Blood pressure is 117/77. O2 saturation is 99% on room air. NECK: Thin. There is no jugular venous distention or carotid bruits. LUNGS: Clear to auscultation. CARDIOVASCULAR: Regular with normal S1 and S2. There is no audible ectopy. There is no murmur or rub. ABDOMEN: Soft. EXTREMITIES: Without cyanosis or clubbing. There is no peripheral edema. There are intact distal pulses. Telemetry reveals no arrhythmias. IMPRESSION: A 71-year-old female admitted with issues as follows: 1. Acute anterior apical myocardial infarction with LAD subtotal occlusion, status post emergent PCI and stenting of the left anterior descending with revascularization with residual disease in the diagonal branch. Echocardiography has demonstrated moderate left ventricular dysfunction. Medications have been adjusted to appropriate and optimal therapy with lisinopril, atorvastatin, metoprolol, aspirin and clopidogrel. The patient is now ambulatory without symptoms or complaints. Overall, the patient is stable from a cardiac standpoint for discharge to home, though hemoglobin has dropped this morning. We will plan on cardiac rehab as an outpatient and follow up with cardiology in the next 2 weeks' time. The patient is to report new symptoms or complaints. Continue all therapies as currently prescribed.
--- NOTE | 2017-07-14 11:57 | Progress Note ---
Internal Med Progress Note Date of Service: Jul 14, 2017. Provider Documentation: SUBJECTIVE: The patient was seen and examined Admitted with STEMI secondary to LAD occlusion S/P Cardiac Cath-and LAD stenting No symptoms and ambulating well OBJECTIVE: Vital Signs-as noted below Exam: General-No distress Eyes-normal ENT-normal Neck-supple Lungs-Clear to ausucltate bilaterally Heart-Regular,no murmur appreciated Abdomen-Benign,no masses,bowel sound present Extremities-No edema Neuro-AAOx3 Lab data as noted below. ASSESSMENT & PLAN: Anterior ST myocardial infarction STEMI secondary to LAD occlusion S/P Cardiac Cath-and LAD stenting Has been on Aspirin and Plavix-should be continued for 1 year Was on Plavix before On BB and ACEI ECHO::The left ventricle is normal in size. * There is borderline concentric left ventricular hypertrophy. * There is severe hypokinesis of the LAD distribution territory including the entire septum and apex without thinning or scar. * Left ventricular systolic function is moderately reduced. * Ejection Fraction = 35-40%. * There is mild to moderate mitral regurgitation. * There is trace tricuspid regurgitation. * Doppler findings do not suggest pulmonary hypertension. Appreciate Cardiology input History of stroke, has been on Plavix and beta maría before. No new symptoms from that stroke and no residual from the stroke. Aspirin added which will have additive effect. Systemic lupus erythematosus, no acute symptoms at this time. Has been on chloroquine at night, will continue with that. She does not have any renal impairment or any joint problem at this time. History of syndrome of inappropriate antidiuretic hormone secretion. Her sodium level is 132 today, which seems to be in the lower limit. We will follow and monitor PRP while in the hospital. Sodium is a little low at 130 Hypertension. Blood pressure seems to be stable. Continue with current medications including beta maría and TOSHIA inhibitor. Hyperlipidemia, has been on atorvastatin. We will continue with that. Most likely, doses will be increased to 40 mg daily. Gastrointestinal prophylaxis with Protonix. Deep venous thrombosis prophylaxis with subcutaneous heparin. Code status -- She will be a full code. Vital Signs: Date Time Temp Pulse Resp B/P (MAP) Pulse Ox O2 Delivery O2 Flow Rate FiO2 07/14/17 08:00 99 Room Air 07/14/17 07:27 36.6 62 17 117/77 (90) 100 Room Air 07/14/17 04:25 36.5 64 26 128/86 (100) 99 Room Air 07/14/17 04:00 99 Room Air 07/14/17 00:00 99 Room Air 07/13/17 23:53 36.5 68 18 129/83 (98) 99 Room Air 07/13/17 21:35 67 121/76 (91) 07/13/17 20:00 100 Room Air 07/13/17 19:46 36.6 71 16 115/77 (90) 100 Room Air 07/13/17 16:00 36.6 74 18 110/75 (87) 99 Room Air 07/13/17 15:19 96 Room Air 07/13/17 12:00 Room Air 07/13/17 12:00 36.7 75 16 115/78 (90) 98 Room Air Lab Results: Results Past 24 Hours Test 07/13/17 13:39 07/14/17 06:08 Range/Units Bedside Glucose 105 70-90 mg/dl White Blood Count 3.35 4.8-10.8 K/uL Red Blood Count 3.46 4.2-5.4 M/uL Hemoglobin 10.3 12.0-16.0 g/dL Hematocrit 30.6 37-47 % Mean Corpuscular Volume 88.4 80-100 fL Mean Corpuscular Hemoglobin 29.8 25-34 pg Mean Corpuscular Hemoglobin Concent 33.7 32-36 g/dl Platelet Count 193 130-400 K/uL Mean Platelet Volume 9.4 7.4-10.4 fL Neutrophils (%) (Auto) 66.3 % Lymphocytes (%) (Auto) 16.7 % Monocytes (%) (Auto) 14.6 % Eosinophils (%) (Auto) 1.5 % Basophils (%) (Auto) 0.6 % Neutrophils # (Auto) 2.22 1.4-6.5 K/uL Lymphocytes # (Auto) 0.56 1.2-3.4 K/uL Monocytes # (Auto) 0.49 0.11-0.59 K/uL Eosinophils # (Auto) 0.05 0-0.5 K/uL Basophils # (Auto) 0.02 0-0.2 K/uL RDW Standard Deviation 44.2 36.4-46.3 fL RDW Coefficient of Variation 13.6 11.5-14.5 % Immature Granulocyte % (Auto) 0.3 % Immature Granulocyte # (Auto) 0.01 0.00-0.02 K/uL Sodium Level 130 136-145 mmol/L Potassium Level 4.8 3.5-5.1 mmol/L Chloride Level 98 98-107 mmol/L Carbon Dioxide Level 28 21-32 mmol/L Anion Gap 4.0 3-11 mmol/L Blood Urea Nitrogen 15 7-18 mg/dl Creatinine 0.76 0.60-1.20 mg/dl Est Creatinine Clear Calc Drug Dose 51.6 ml/min Estimated GFR () 92.8 Estimated GFR (Non- 80.0 BUN/Creatinine Ratio 20.1 10-20 Random Glucose 78 70-99 mg/dl Calcium Level 8.5 8.5-10.1 mg/dl Phosphorus Level 4.0 2.5-4.9 mg/dl Magnesium Level 2.1 1.8-2.4 mg/dl
[2017-07-14] MEDS: HYDROXYCHLOROQUINE SULFATE 200 MG TAB PO SCH (21:07)
[2017-07-15] VITALS (8 sets, daily range): BP systolic 111–148; BP diastolic 72–84; PULSE 60–73; TEMP 36.4–36.7; O2SAT 96–100
[2017-07-15] MEDS: LEVOTHYROXINE 100 MCG TAB PO SCH (05:50)
[2017-07-15] MEDS: HEPARIN SOD 5000 UNIT/0.5 ML CARP SQ SCH ×3 (05:51→21:28)
[2017-07-15 06:57] LABS: BASO % 0.6 %; BASO ABS # 0.02 K/uL (0-0.2); COMPLETE YES; EOS % 1.4 %; HEMATOCRIT 27.4 % (37-47); IG% 0.3 %; LYMPH % 13.8 %; MEAN CORPUSCULAR HEMOGLOBIN 30.5 pg (25-34); MEAN PLATELET VOLUME 9.4 fL (7.4-10.4); MONO % 18.8 %; NEUT % 65.1 %; PLATELET COUNT 184 K/uL (130-400); RED BLOOD COUNT 3.15 M/uL (4.2-5.4); WHITE BLOOD COUNT 3.62 K/uL (4.8-10.8)
[2017-07-15 07:31] LABS: BUN/CREATININE RATIO 22.3 (10-20); CALCIUM 8.7 mg/dl (8.5-10.1); CREATININE 0.78 mg/dl (0.60-1.20); POTASSIUM 4.5 mmol/L (3.5-5.1)
[2017-07-15] MEDS: ASPIRIN 81 MG ECTAB PO SCH (07:40)
[2017-07-15] MEDS: ATORVASTATIN 40 MG TAB PO SCH (07:40)
[2017-07-15] MEDS: POLYETHYLENE (MIRALAX) 17 GM PACK PO SCH ×2 (07:40→20:23)
[2017-07-15] MEDS: CLOPIDOGREL BISULFATE 75 MG TAB PO SCH (07:40)
[2017-07-15] MEDS: DOCUSATE SODIUM 100 MG CAP PO SCH ×2 (07:41→20:23)
[2017-07-15] MEDS: CEROVITE ADV FORMULA TAB PO SCH (07:41)
[2017-07-15] MEDS: LISINOPRIL 10 MG TAB PO SCH (07:41)
[2017-07-15] MEDS: METOPROLOL TARTRATE 25 MG TAB PO SCH ×2 (07:41→20:23)
[2017-07-15] MEDS: CHOLECALCIFEROL 1000 INTER.UNIT TAB PO SCH (07:42)
[2017-07-15] MEDS: CALCIUM 600MG + VIT D 400 IU TAB PO SCH ×2 (07:42→20:23)
--- NOTE | 2017-07-15 09:47 | Progress Note ---
Internal Med Progress Note Date of Service: Jul 15, 2017. Provider Documentation: SUBJECTIVE: The patient was seen and examined Admitted with STEMI secondary to LAD occlusion S/P Cardiac Cath-and LAD stenting No symptoms and ambulating well Wants to go home and ready to be discharged OBJECTIVE: Vital Signs-as noted below Exam: General-No distress Eyes-normal ENT-normal Neck-supple Lungs-Clear to ausucltate bilaterally Heart-Regular,no murmur appreciated Abdomen-Benign,no masses,bowel sound present Extremities-No edema Neuro-AAOx3 Lab data as noted below. ASSESSMENT & PLAN: Anterior ST myocardial infarction STEMI secondary to LAD occlusion S/P Cardiac Cath-and LAD stenting Has been on Aspirin and Plavix-should be continued for 1 year Was on Plavix before On BB and ACEI ECHO::The left ventricle is normal in size. * There is borderline concentric left ventricular hypertrophy. * There is severe hypokinesis of the LAD distribution territory including the entire septum and apex without thinning or scar. * Left ventricular systolic function is moderately reduced. * Ejection Fraction = 35-40%. * There is mild to moderate mitral regurgitation. * There is trace tricuspid regurgitation. * Doppler findings do not suggest pulmonary hypertension. Appreciate Cardiology input free of any symptoms Mild Anemia Hb 9.6 today was >12 on Admission Likely dilutional No obvious bleeding source Will need OP monitoring History of stroke, has been on Plavix and beta maría before. No new symptoms from that stroke and no residual from the stroke. Aspirin added which will have additive effect. Systemic lupus erythematosus, no acute symptoms at this time. Has been on chloroquine at night, will continue with that. She does not have any renal impairment or any joint problem at this time. History of syndrome of inappropriate antidiuretic hormone secretion. Her sodium level is 132 today, which seems to be in the lower limit. We will follow and monitor PRP while in the hospital. Sodium is a little low at 130 and today 129 Advised not to restrict any more salt and continue as before Hypertension. Blood pressure seems to be stable. Continue with current medications including beta maría and TOSHIA inhibitor. Hyperlipidemia, has been on atorvastatin. We will continue with that. Most likely, doses will be increased to 40 mg daily. Gastrointestinal prophylaxis with Protonix. Deep venous thrombosis prophylaxis with subcutaneous heparin. Code status -- She will be a full code. Discharge home today Vital Signs: Date Time Temp Pulse Resp B/P (MAP) Pulse Ox O2 Delivery O2 Flow Rate FiO2 07/15/17 07:34 36.4 73 18 148/79 (102) 100 Room Air 07/15/17 04:00 99 Room Air 07/15/17 04:00 36.5 62 16 133/82 (99) 99 Room Air 07/15/17 00:00 97 Room Air 07/14/17 23:36 36.8 64 16 122/81 (95) 97 Room Air 07/14/17 20:00 97 Room Air 07/14/17 19:57 36.8 75 22 115/74 (88) 99 Room Air 07/14/17 16:05 36.3 66 16 125/80 (95) 100 Room Air 07/14/17 15:48 99 Room Air 07/14/17 12:12 99 Room Air 07/14/17 11:53 36.7 63 17 118/77 (91) 98 Room Air Lab Results: Results Past 24 Hours Test 07/15/17 06:44 Range/Units White Blood Count 3.62 4.8-10.8 K/uL Red Blood Count 3.15 4.2-5.4 M/uL Hemoglobin 9.6 12.0-16.0 g/dL Hematocrit 27.4 37-47 % Mean Corpuscular Volume 87.0 80-100 fL Mean Corpuscular Hemoglobin 30.5 25-34 pg Mean Corpuscular Hemoglobin Concent 35.0 32-36 g/dl Platelet Count 184 130-400 K/uL Mean Platelet Volume 9.4 7.4-10.4 fL Neutrophils (%) (Auto) 65.1 % Lymphocytes (%) (Auto) 13.8 % Monocytes (%) (Auto) 18.8 % Eosinophils (%) (Auto) 1.4 % Basophils (%) (Auto) 0.6 % Neutrophils # (Auto) 2.36 1.4-6.5 K/uL Lymphocytes # (Auto) 0.50 1.2-3.4 K/uL Monocytes # (Auto) 0.68 0.11-0.59 K/uL Eosinophils # (Auto) 0.05 0-0.5 K/uL Basophils # (Auto) 0.02 0-0.2 K/uL RDW Standard Deviation 43.8 36.4-46.3 fL RDW Coefficient of Variation 13.7 11.5-14.5 % Immature Granulocyte % (Auto) 0.3 % Immature Granulocyte # (Auto) 0.01 0.00-0.02 K/uL Sodium Level 129 136-145 mmol/L Potassium Level 4.5 3.5-5.1 mmol/L Chloride Level 96 98-107 mmol/L Carbon Dioxide Level 28 21-32 mmol/L Anion Gap 5.0 3-11 mmol/L Blood Urea Nitrogen 17 7-18 mg/dl Creatinine 0.78 0.60-1.20 mg/dl Est Creatinine Clear Calc Drug Dose 49.9 ml/min Estimated GFR () 89.9 Estimated GFR (Non- 77.6 BUN/Creatinine Ratio 22.3 10-20 Random Glucose 83 70-99 mg/dl Calcium Level 8.7 8.5-10.1 mg/dl
--- NOTE | 2017-07-15 11:59 | CARDIOLOGY PROGRESS NOTE ---
DATE: 07/15/2017 Patient seen and examined. Chart, medications, telemetry reviewed. SUBJECTIVE: The patient has had no further chest pain or discomfort. Did experience mild dizziness or lightheadedness with ambulation this morning. Otherwise, has been feeling well. Notes no melena, hematochezia, though has vision impairment. Notes no chest pain or discomfort. Overall pleased with sense of wellbeing. OBJECTIVE: VITAL SIGNS: Heart rate is 73. Blood pressure is 148/79. Telemetry reveals no arrhythmias or ectopy. NECK: Thin. There is no jugular venous distention. LUNGS: Clear. CARDIOVASCULAR: Regular, normal S1, S2, no murmur, gallop or rub. ABDOMEN: Soft, nontender. EXTREMITIES: Without cyanosis or clubbing. Right groin puncture site is healing well with mild surrounding ecchymosis. There is no bruit or fistula. There is no hematoma. LABORATORY DATA: Sodium is 129, potassium is 4.5, chloride is 96, bicarbonate 28, BUN 17, creatinine 0.78. White cell count 3.6, hemoglobin is 9.5. IMPRESSION: 71-year-old female with complex history presents with acute anterolateral myocardial infarction with LAD occlusion. The patient is recovering well. No arrhythmias or signs of heart failure, no audible murmur or rub. PLAN: Continue current medications with plan given lightheadedness to reduce lisinopril back to 5 mg per day. All other medications will be continued. The patient to be discharged later today with planned follow up with Dr. Jean Baptiste, primary ultrasound spec in the next 2 weeks' time. Cardiac rehab consultation placed.
[2017-07-15] MEDS ORDERED: NTRSLP4 SL ×2 (17:03)
[2017-07-15] MEDS ORDERED: SENN-65 PO ×2 (17:03)
[2017-07-15] MEDS ORDERED: LPR25 PO ×2 (17:03)
[2017-07-15] MEDS ORDERED: LSN5 OR ×2 (17:03)
[2017-07-15] MEDS ORDERED: LPT40 PO ×2 (17:03)
[2017-07-15] MEDS ORDERED: ASPEC81 PO ×2 (17:03)
--- NOTE | 2017-07-15 17:05 | Discharge Instructions ---
Discharge Instructions Date of Service Jul 15, 2017. Admission Reason for Admission: AMI Discharge Discharge Diagnosis / Problem: ACS / dyslipidemia / HTN Discharge Goals Goal(s): Decrease discomfort Activity Recommendations Activity Limitations: resume your previous activity . Instructions / Follow-Up Instructions / Follow-Up F/U with prefinish operator in 1-2 weeks Current Hospital Diet Patient's current hospital diet: AHA Diet (Heart Healthy) Discharge Diet Recommended Diet: AHA Diet (Heart Healthy) Pending Studies Studies pending at discharge: no Laboratory Results Hemoglobin A1c Test 07/13/17 00:12 Range/Units Estimated Average Glucose 105 mg/dl Hemoglobin A1c 5.3 4.5-5.6 % Lipid Panel Test 07/13/17 03:14 Range/Units Triglycerides Level 26 0-150 mg/dl Cholesterol Level 131 0-200 mg/dl HDL Cholesterol 58 mg/dl Cholesterol/HDL Ratio 2.3 LDL Cholesterol, Calculated 68 mg/dl Medical Emergencies . Who to Call and When: Medical Emergencies: If at any time you feel your situation is an emergency, please call 911 immediately. . Non-Emergent Contact Non-Emergency issues call your: Primary Care Provider, Technical Solutions Engineer Call Non-Emergent contact if: your pain is not controlled . . "Provider Documentation" section prepared by Maxine Valerio. . VTE Core Measure Inpt VTE Proph given/why not?: Unfractionated heparin SQ
[2017-07-15] MEDS: HYDROXYCHLOROQUINE SULFATE 200 MG TAB PO SCH (20:23)
[2017-07-16] VITALS: BP 128/78; PULSE 64; TEMP 36.5; O2SAT 98
[2017-07-16 03:26] VITALS: BP 122/77; PULSE 65; TEMP 36.5; O2SAT 99
[2017-07-16 04:00] VITALS: O2SAT 99
[2017-07-16] MEDS: LEVOTHYROXINE 100 MCG TAB PO SCH (05:38)
[2017-07-16] MEDS: HEPARIN SOD 5000 UNIT/0.5 ML CARP SQ SCH (05:43)
[2017-07-16 05:46] LABS: BASO % 0.6 %; BASO ABS # 0.02 K/uL (0-0.2); COMPLETE YES; EOS % 1.9 %; HEMATOCRIT 28.5 % (37-47); IG% 0.3 %; LYMPH % 18.6 %; LYMPH ABS # 0.59 K/uL (1.2-3.4); MEAN CELL VOLUME 88.2 fL (80-100); MEAN CORPUSCULAR HEMOGLOBIN 30.3 pg (25-34); MEAN CORPUSCULAR HGB CONC 34.4 g/dl (32-36); MEAN PLATELET VOLUME 9.8 fL (7.4-10.4); MONO % 17.9 %; NEUT % 60.7 %; PLATELET COUNT 193 K/uL (130-400); RED BLOOD COUNT 3.23 M/uL (4.2-5.4); WHITE BLOOD COUNT 3.18 K/uL (4.8-10.8)
[2017-07-16 06:13] LABS: BUN/CREATININE RATIO 22.8 (10-20); CALCIUM 8.5 mg/dl (8.5-10.1); CREATININE 0.76 mg/dl (0.60-1.20); POTASSIUM 4.8 mmol/L (3.5-5.1)
[2017-07-16 07:44] VITALS: BP 127/68; PULSE 66; TEMP 36.8; O2SAT 98
[2017-07-16] MEDS ORDERED: LISINOPRIL 10 MG TAB PO SCH (09:00)
[2017-07-16] MEDS: DOCUSATE SODIUM 100 MG CAP PO SCH (09:14)
[2017-07-16] MEDS: CEROVITE ADV FORMULA TAB PO SCH (09:14)
[2017-07-16] MEDS: METOPROLOL TARTRATE 25 MG TAB PO SCH (09:14)
[2017-07-16] MEDS: ASPIRIN 81 MG ECTAB PO SCH (09:14)
[2017-07-16] MEDS: CLOPIDOGREL BISULFATE 75 MG TAB PO SCH (09:14)
[2017-07-16] MEDS: ATORVASTATIN 40 MG TAB PO SCH (09:14)
[2017-07-16] MEDS: CHOLECALCIFEROL 1000 INTER.UNIT TAB PO SCH (09:15)
[2017-07-16] MEDS: POLYETHYLENE (MIRALAX) 17 GM PACK PO SCH (09:16)
[2017-07-16] MEDS: CALCIUM 600MG + VIT D 400 IU TAB PO SCH (09:16)
--- NOTE | 2017-07-16 09:32 | Progress Note ---
Internal Med Progress Note Date of Service: Jul 16, 2017. Provider Documentation: SUBJECTIVE: The patient was seen and examined Admitted with STEMI secondary to LAD occlusion S/P Cardiac Cath-and LAD stenting No symptoms and ambulating well Was worried about the Blood counts last evening Much better this morning OBJECTIVE: Vital Signs-as noted below Exam: General-No distress Eyes-normal ENT-normal Neck-supple Lungs-Clear to ausucltate bilaterally Heart-Regular,no murmur appreciated Abdomen-Benign,no masses,bowel sound present Extremities-No edema Neuro-AAOx3 Lab data as noted below. ASSESSMENT & PLAN: Anterior ST myocardial infarction STEMI secondary to LAD occlusion S/P Cardiac Cath-and LAD stenting Has been on Aspirin and Plavix-should be continued for 1 year Was on Plavix before On BB and ACEI ECHO::The left ventricle is normal in size. * There is borderline concentric left ventricular hypertrophy. * There is severe hypokinesis of the LAD distribution territory including the entire septum and apex without thinning or scar. * Left ventricular systolic function is moderately reduced. * Ejection Fraction = 35-40%. * There is mild to moderate mitral regurgitation. * There is trace tricuspid regurgitation. * Doppler findings do not suggest pulmonary hypertension. Appreciate Cardiology input Medications adjusted Will discharge today Mild Anemia Hb 9.6 today was >12 on Admission Likely dilutional No obvious bleeding source Will need OP monitoring Hb 9.8 today 07/16/17 History of stroke, has been on Plavix and beta maría before. No new symptoms from that stroke and no residual from the stroke. Aspirin added which will have additive effect. Systemic lupus erythematosus, no acute symptoms at this time. Has been on chloroquine at night, will continue with that. She does not have any renal impairment or any joint problem at this time. History of syndrome of inappropriate antidiuretic hormone secretion. Her sodium level is 132 today, which seems to be in the lower limit. We will follow and monitor PRP while in the hospital. Sodium is a little low at 130 and today 129 Advised not to restrict any more salt and continue as before Sodium level is 128 today -will need to monitor as an OP May need Nephrology evaluation Hypertension. Blood pressure seems to be stable. Continue with current medications including beta maría and TOSHIA inhibitor. Hyperlipidemia, has been on atorvastatin. We will continue with that. Most likely, doses will be increased to 40 mg daily. Gastrointestinal prophylaxis with Protonix. Deep venous thrombosis prophylaxis with subcutaneous heparin. Code status -- She will be a full code. Discharge home today Vital Signs: Date Time Temp Pulse Resp B/P (MAP) Pulse Ox O2 Delivery O2 Flow Rate FiO2 07/16/17 07:44 36.8 66 18 127/68 (87) 98 07/16/17 04:00 99 Room Air 07/16/17 03:26 36.5 65 20 122/77 (92) 99 Room Air 07/16/17 00:00 36.5 64 20 128/78 (95) 98 Room Air 07/15/17 23:59 96 Room Air 07/15/17 20:00 96 Room Air 07/15/17 19:38 36.5 72 16 111/72 (85) 96 Room Air 07/15/17 16:00 Room Air 07/15/17 15:36 36.7 67 16 126/82 (97) 99 Room Air 07/15/17 12:00 Room Air 07/15/17 11:33 36.5 60 18 121/75 (90) 99 Room Air 68 130/84 (99) 64 117/78 (91) Lab Results: Results Past 24 Hours Test 07/16/17 05:04 Range/Units White Blood Count 3.18 4.8-10.8 K/uL Red Blood Count 3.23 4.2-5.4 M/uL Hemoglobin 9.8 12.0-16.0 g/dL Hematocrit 28.5 37-47 % Mean Corpuscular Volume 88.2 80-100 fL Mean Corpuscular Hemoglobin 30.3 25-34 pg Mean Corpuscular Hemoglobin Concent 34.4 32-36 g/dl Platelet Count 193 130-400 K/uL Mean Platelet Volume 9.8 7.4-10.4 fL Neutrophils (%) (Auto) 60.7 % Lymphocytes (%) (Auto) 18.6 % Monocytes (%) (Auto) 17.9 % Eosinophils (%) (Auto) 1.9 % Basophils (%) (Auto) 0.6 % Neutrophils # (Auto) 1.93 1.4-6.5 K/uL Lymphocytes # (Auto) 0.59 1.2-3.4 K/uL Monocytes # (Auto) 0.57 0.11-0.59 K/uL Eosinophils # (Auto) 0.06 0-0.5 K/uL Basophils # (Auto) 0.02 0-0.2 K/uL RDW Standard Deviation 43.9 36.4-46.3 fL RDW Coefficient of Variation 13.5 11.5-14.5 % Immature Granulocyte % (Auto) 0.3 % Immature Granulocyte # (Auto) 0.01 0.00-0.02 K/uL Sodium Level 128 136-145 mmol/L Potassium Level 4.8 3.5-5.1 mmol/L Chloride Level 95 98-107 mmol/L Carbon Dioxide Level 30 21-32 mmol/L Anion Gap 3.0 3-11 mmol/L Blood Urea Nitrogen 17 7-18 mg/dl Creatinine 0.76 0.60-1.20 mg/dl Est Creatinine Clear Calc Drug Dose 51.2 ml/min Estimated GFR () 92.8 Estimated GFR (Non- 80.0 BUN/Creatinine Ratio 22.8 10-20 Random Glucose 79 70-99 mg/dl Calcium Level 8.5 8.5-10.1 mg/dl
--- NOTE | 2017-07-16 10:54 | Discharge Instructions ---
Discharge Instructions Date of Service Jul 16, 2017. Admission Reason for Admission: AMI Discharge Discharge Diagnosis / Problem: Ant STEMI s/p LAD MARY,SIADH Discharge Goals Goal(s): Prevent Disease Progression Activity Recommendations Activity Limitations: resume your previous activity (Take it easy for the Next couple of weeks) . Instructions / Follow-Up Instructions / Follow-Up DR Murillo on 07/19/17 at 10:45 AM.Please check electrolytes ,Dr Jean Baptiste on at 12:45 PM Current Hospital Diet Patient's current hospital diet: AHA Diet (Heart Healthy) Discharge Diet Recommended Diet: AHA Diet (Heart Healthy), Low Sodium Diet (2gm Na) Fluid Restriction: 1500 ml (6 cups) Pending Studies Studies pending at discharge: no Laboratory Results Hemoglobin A1c Test 07/13/17 00:12 Range/Units Estimated Average Glucose 105 mg/dl Hemoglobin A1c 5.3 4.5-5.6 % Lipid Panel Test 07/13/17 03:14 Range/Units Triglycerides Level 26 0-150 mg/dl Cholesterol Level 131 0-200 mg/dl HDL Cholesterol 58 mg/dl Cholesterol/HDL Ratio 2.3 LDL Cholesterol, Calculated 68 mg/dl Medical Emergencies . Who to Call and When: Medical Emergencies: If at any time you feel your situation is an emergency, please call 911 immediately. . Non-Emergent Contact Non-Emergency issues call your: Primary Care Provider . Past History Medical & Surgical History: (1) Lumbar stenosis with neurogenic claudication (2) Chronic hyponatremia (3) Generalized weakness (4) AMI (acute myocardial infarction) (5) Blood clots (right eye) (6) Back surgery (7) Lupus (8) Diab Sil Wo Compl, Type Ii Or Unspec Type, Not Uncntrld (9) Hypertension Nos (10) Hypothyroidism Nos (11) Personal Hx Of Tia,& Cerebral Infarction W/Out Res Deficits . "Provider Documentation" section prepared by Magdiel Greene. . VTE Core Measure Inpt VTE Proph given/why not?: Unfractionated heparin SQ
[2017-07-16 11:03] VITALS: BP 127/68; PULSE 66; TEMP 36.8; O2SAT 98
--- NOTE | 2017-07-16 11:04 | CARDIOLOGY PROGRESS NOTE ---
DATE: 07/16/2017 DATE: 07/16/2017 HISTORY OF PRESENT ILLNESS: The patient is a 71-year-old female admitted with ST elevation myocardial infarction secondary to LAD subtotal occlusion status post coronary intervention. Patient today feels well. Notes no chest pains, dizziness, lightheadedness, syncope or near syncope. Notes no tachypalpitations. Notes no orthopnea. Hemoglobins have stabilized. She anticipates possible discharge later today. OBJECTIVE: VITAL SIGNS: Heart rate is 66, blood pressure 127/68. NECK: Thin. There is no jugular venous distention. There are no carotid bruits. LUNGS: Clear. CARDIOVASCULAR EXAMINATION: Regular. There is no S3 gallop. ABDOMEN: Soft, nontender. EXTREMITIES: Without cyanosis or clubbing. There is no peripheral edema. Right femoral puncture site is healed well without hematoma. IMPRESSION: A 71-year-old female status post ST elevation myocardial infarction on appropriate medical therapy stable for discharge to home. Would recommend repeat BMP post-hospitalization with followup cardiology.
--- NOTE | 2017-07-16 11:39 | Discharge Summary ---
Discharge Summary Date of Service Jul 16, 2017. Discharge Summary Admission Date: Jul 13, 2017 at 01:52 Discharge Date: Jul 16, 2017 Discharge Disposition: Home Principal Diagnosis: Ant STEMI s/p LAD MARY,SIADH Secondary Diagnoses/Problems: Plesae see H&P and Hospital Progress note Procedures: Cardiac Cath Consultations: Cardiology and [employer] Medication Reconciliation New Medications: Lisinopril (Lisinopril) 5 Mg Tab 1 TAB OR DAILY for 30 Days, #30 TAB Senna/Docusate Sod (Senokot S) 1 Tab Tab 1 TAB PO DAILY for 30 Days, #30 TAB Aspirin (Aspirin EC Low Dose) 81 Mg Ectab 81 MG PO QAM for 30 Days, #30 TAB Atorvastatin (Atorvastatin Calcium) 40 Mg Tab 40 MG PO DAILY for 30 Days, #30 TAB Metoprolol Tartrate (Lopressor) 25 Mg Tab 25 MG PO Q12 for 30 Days, #60 TAB Nitroglycerin (Nitrostat) 0.4 Mg/1 Tab Subl 0.4 MG SL UD PRN for Chest Pain for 30 Days, #25 TAB Continued Medications: Biotin (Biotin) 1,000 Mcg Tab 1000 MCG PO DAILY Calcium Carbonate-Vitamin D W/ (Caltrate 600 Plus) 1 Tab Tab 2 TABS PO QAM, TAB Cholecalciferol (Vitamin D3) 1,000 Inter.unit Tab 2000 INTER.UNIT PO QAM Clobetasol Propionate (Clobetasol Propionate) 180 Appln/60 Gm Cr 1 APPLN TOP BID PRN for FLARES LUPUS FLARES Clobetasol Propionate (Clobetasol Propionate) 0.05 % Sha 1 APPLN TOP 3XWK APPLY TO SCALP 2-3 X'S PER WEEK FOR LUPUS Clopidogrel Bisulfate (Clopidogrel) 75 Mg Tab 75 MG PO DAILY Fluticasone Propionate (Fluticasone Propionate) 120 Sprays/6000 Mcg Inha 2 SPRAYS PAUL DAILY PRN for Nasal Congestion Hydroxychloroquine Sulfate (Hydroxychloroquine Sulfat) 200 Mg Tab 200 MG PO HS Levothyroxine Sodium (Synthroid) 100 Mcg Tab 100 MCG PO QAM, TAB Multiple Vitamins W/ Minerals (Multi Complete/Iron) 1 Tab Tab 1 TAB PO DAILY Polyethylene (Polyethylene Glycol 3350) 527 Gm Soln 34 GM PO QAM Probiotic Product (Probiotic Daily) 1 Cap Cap 1 CAP PO QAM Sodium Fluoride (Dental) (Prevident 5000 Dry Mouth) 1.1 % Pst 1 APPLN PO DAILY USE DAILY IN PLACE OF REGULAR TOOTHPASTE Discontinued Medications: Atorvastatin (Atorvastatin Calcium) 10 Mg Tab 10 MG PO DAILY Docusate Sodium (Docusate Sodium) 100 Mg Cap 100 MG PO BID Lisinopril (Lisinopril) 10 Mg Tab 10 MG PO DAILY Admission Information HPI (per Admitting provider): DATE OF ADMISSION: 07/13/2017 PRIMARY CARE PROVIDER: Dr. Murillo. CHIEF COMPLAINT: The patient was brought into the Emergency Room with acute onset chest pain last evening while she was not doing anything. Apparently she has had similar kind of chest pain 2 days before, that relieved spontaneously. 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 She is status post cardiac catheterization and she was noted to have LAD stenosis and she has had about 5 stent placements and following that she was brought into the ICU for continuation of the care. She received adequate treatment for STEMI including Integrilin, Plavix and aspirin, which will be continued for at least 1 year. In the ICU, she is not having any chest pain. She remains in sinus rhythm without arrhythmias. She does not have any shortness of breath, any cough, any phlegm, any abdominal pain, nausea or vomiting. She does not have any numbness or tingling in the extremities and her catheterization site in the right groin is not showing any hematoma or any other problem. PAST MEDICAL HISTORY: Significant for SIADH, SLE, history of stroke without any sequela, acquired hypothyroidism, allergic rhinitis, hypertension, hyperlipidemia, Raynaud disease. PAST SURGICAL HISTORY: Significant for back surgery in 2010, total abdominal hysterectomy, removal of tubes in 1985 and total hip replacement and prosthesis in 2012. FAMILY HISTORY: Significant that father had ischemic heart disease and has had heart attack at the age of 35-40. Mother had lymphoma. SOCIAL HISTORY: She is . She has 2 children. She quit smoking in 1985. She uses alcohol occasionally and she has been reasonably active. ALLERGIES: ALLERGIC TO SULFA ANTIBIOTIC AND VENLAFAXINE. MEDICATIONS: As an outpatient, she has been on atorvastatin 10 mg daily, calcium with vitamin D 2 tablets in the morning, vitamin D3 2000 units daily, Plavix 75 mg daily, docusate sodium 100 mg daily, Flonase nasal spray 2 sprays each nostril daily, hydroxychloroquine 200 mg at night, levothyroxine 100 mcg daily, lisinopril 10 mg daily, multivitamin 1 tablet daily, biotin 1000 mcg daily, clobetasol propionate 1 application topical 3 times a week, MiraLax as directed, probiotic as directed. REVIEW OF SYSTEMS: Total 10-point review of systems unremarkable except those mentioned in history of present complaint. PHYSICAL EXAMINATION: GENERAL: In the ICU, she was not having any acute distress. VITAL SIGNS: Temperature 36.7, pulse of 67 and regular, blood pressure 126/86, saturation 99% on room air. HEENT: Unremarkable. NECK: Supple. No JVD, no bruit. CHEST: Clear to auscultate bilaterally. HEART: S1, S2 regular. No murmur appreciated. ABDOMEN: Soft, benign, nontender, no organomegaly. Bowel sounds present. EXTREMITIES: No edema. Examination of the local site of catheterization minimally tender but no hematoma and/or swelling. CENTRAL NERVOUS SYSTEM: She was alert, awake, oriented x3 and no focal sensory and/or motor deficit appreciated. LABORATORY DATA: Noted today, white count was 3.55, H&H 12.8/36.0, platelet was 237, that was from yesterday. Chemistry: Sodium 132, potassium 4.1, chloride 98, CO2 27, BUN 16, creatinine 0.71, hemoglobin A1c 5.3, random glucose 96, calcium 7.7. Triglycerides 26. Cholesterol 131, HDL 58. INR 1.1, PTT ratio 1.0. Chest x-ray that was done yesterday, no new focal infiltration. EKG that was done yesterday did show sinus rhythm with rate of 84 per minute, normal axis, significant ST elevation with associated T-wave changes involving V1-3 leads. EKG that was done this morning, still showing minimal ST elevation with terminal T-wave inversion involving anterior leads have decreased. IMPRESSION AND PLAN: 1. Anterior ST myocardial infarction status post left anterior descending stent placement. The patient remains stable in ICU, has had appropriate medications. We will continue with aspirin and Plavix for at least 1 year. She has been getting beta maría and also TOSHIA inhibitor. Echocardiogram will be done and cardiology evaluation while in the hospital. 2. History of stroke, has been on Plavix and beta maría before. No new symptoms from that stroke and no residual from the stroke. We will monitor. Aspirin added which will have additive effect. 3. Systemic lupus erythematosus, no acute symptoms at this time. Has been on chloroquine at night, will continue with that. She does not have any renal impairment or any joint problem at this time. 4. History of syndrome of inappropriate antidiuretic hormone secretion. Her sodium level is 132 today, which seems to be in the lower limit. We will follow and monitor PRP while in the hospital. 5. Hypertension. Blood pressure seems to be stable. Continue with current medications including beta maría and TOSHIA inhibitor. 6. Hyperlipidemia, has been on atorvastatin. We will continue with that. Most likely, doses will be increased to 40 mg daily. 7. Gastrointestinal prophylaxis with Protonix. 8. Deep venous thrombosis prophylaxis with subcutaneous heparin. 9. Code status -- She will be a full code. In my clinical judgment, the beneficiary meets criteria as per CMS for 2-midnight stay in the hospital. Hospital Course Anterior ST myocardial infarction STEMI secondary to LAD occlusion S/P Cardiac Cath-and LAD stenting Has been on Aspirin and Plavix-should be continued for 1 year Was on Plavix before On BB and ACEI ECHO::The left ventricle is normal in size. * There is borderline concentric left ventricular hypertrophy. * There is severe hypokinesis of the LAD distribution territory including the entire septum and apex without thinning or scar. * Left ventricular systolic function is moderately reduced. * Ejection Fraction = 35-40%. * There is mild to moderate mitral regurgitation. * There is trace tricuspid regurgitation. * Doppler findings do not suggest pulmonary hypertension. Appreciate Cardiology input Medications adjusted Will discharge today Mild Anemia Hb 9.6 today was >12 on Admission Likely dilutional No obvious bleeding source Will need OP monitoring Hb 9.8 today 07/16/17 History of stroke, has been on Plavix and beta maría before. No new symptoms from that stroke and no residual from the stroke. Aspirin added which will have additive effect. Systemic lupus erythematosus, no acute symptoms at this time. Has been on chloroquine at night, will continue with that. She does not have any renal impairment or any joint problem at this time. History of syndrome of inappropriate antidiuretic hormone secretion. Her sodium level is 132 today, which seems to be in the lower limit. We will follow and monitor PRP while in the hospital. Sodium is a little low at 130 and today 129 Advised not to restrict any more salt and continue as before Sodium level is 128 today -will need to monitor as an OP May need Nephrology evaluation Hypertension. Blood pressure seems to be stable. Continue with current medications including beta maría and TOSHIA inhibitor. Hyperlipidemia, has been on atorvastatin. We will continue with that. Most likely, doses will be increased to 40 mg daily. Gastrointestinal prophylaxis with Protonix. Deep venous thrombosis prophylaxis with subcutaneous heparin. Code status -- She will be a full code. Discharge home today Total time spent on discharge = 35 minutes This includes examination of the patient, discharge planning, medication reconciliation, and communication with other providers. Discharge Instructions Date of Service Jul 16, 2017. Admission Reason for Admission: AMI Discharge Discharge Diagnosis / Problem: Ant STEMI s/p LAD MARY,SIADH Discharge Goals Goal(s): Prevent Disease Progression Activity Recommendations Activity Limitations: resume your previous activity (Take it easy for the Next couple of weeks) . Instructions / Follow-Up Instructions / Follow-Up DR Murillo on 07/19/17 at 10:45 AM.Please check electrolytes ,Dr Jean Baptiste on at 12:45 PM Current Hospital Diet Patient's current hospital diet: AHA Diet (Heart Healthy) Discharge Diet Recommended Diet: AHA Diet (Heart Healthy), Low Sodium Diet (2gm Na) Fluid Restriction: 1500 ml (6 cups) Pending Studies Studies pending at discharge: no Laboratory Results Hemoglobin A1c Test 07/13/17 00:12 Range/Units Estimated Average Glucose 105 mg/dl Hemoglobin A1c 5.3 4.5-5.6 % Lipid Panel Test 07/13/17 03:14 Range/Units Triglycerides Level 26 0-150 mg/dl Cholesterol Level 131 0-200 mg/dl HDL Cholesterol 58 mg/dl Cholesterol/HDL Ratio 2.3 LDL Cholesterol, Calculated 68 mg/dl Medical Emergencies . Who to Call and When: Medical Emergencies: If at any time you feel your situation is an emergency, please call 911 immediately. . Non-Emergent Contact Non-Emergency issues call your: Primary Care Provider . Past History Medical & Surgical History: (1) Lumbar stenosis with neurogenic claudication (2) Chronic hyponatremia (3) Generalized weakness (4) AMI (acute myocardial infarction) (5) Blood clots (right eye) (6) Back surgery (7) Lupus (8) Diab Sil Wo Compl, Type Ii Or Unspec Type, Not Uncntrld (9) Hypertension Nos (10) Hypothyroidism Nos (11) Personal Hx Of Tia,& Cerebral Infarction W/Out Res Deficits . "Provider Documentation" section prepared by Magdiel Greene. . VTE Core Measure Inpt VTE Proph given/why not?: Unfractionated heparin SQ <Electronically signed by Magdiel Greene M.D.> Signed: 07/16/17 8402 Additional Copies To Missy Murillo M.D.
== END 2017-07-16 11:30 | disposition home or self-care (01) | DRG 246 ==
LOC: C.EDB 23:10 → C.MSICU 07-13 01:52 → C.2T 07-13 15:51
PROVIDERS: ADMIT Hospitalist; ATTEND Internal Medicine
PROC: 3E053PZ Introduction of Platelet Inhibitor into Peripheral Artery, Percutaneous Approach (ICD-10-PCS; principal; 2017-07-13 00:42)
PROC: 4A023N7 Measurement of Cardiac Sampling and Pressure, Left Heart, Percutaneous Approach (ICD-10-PCS; principal; 2017-07-13 00:42)
PROC: 027037Z Dilation of Coronary Artery, One Artery with Four or More Drug-eluting Intraluminal Devices, Percutaneous Approach (ICD-10-PCS; principal; 2017-07-13 00:42)
PROC: B2111ZZ Fluoroscopy of Multiple Coronary Arteries using Low Osmolar Contrast (ICD-10-PCS; principal; 2017-07-13 00:42)
DX: I21.09 ST elevation (STEMI) myocardial infarction involving other coronary artery of anterior wall (principal); E22.2 Syndrome of inappropriate secretion of antidiuretic hormone; E11.9 Type 2 diabetes mellitus without complications; I11.9 Hypertensive heart disease without heart failure; E03.9 Hypothyroidism, unspecified; I25.119 Atherosclerotic heart disease of native coronary artery with unspecified angina pectoris; I73.00 Raynaud's syndrome without gangrene; M32.9 Systemic lupus erythematosus, unspecified; I69.998 Other sequelae following unspecified cerebrovascular disease; I25.2 Old myocardial infarction; Z96.649 Presence of unspecified artificial hip joint; Z82.49 Family history of ischemic heart disease and other diseases of the circulatory system; Z87.891 Personal history of nicotine dependence; Z88.2 Allergy status to sulfonamides; Z79.01 Long term (current) use of anticoagulants; E78.5 Hyperlipidemia, unspecified; D64.9 Anemia, unspecified; Z86.718 Personal history of other venous thrombosis and embolism; R29.898 Other symptoms and signs involving the musculoskeletal system; H81.13 Benign paroxysmal vertigo, bilateral; Z86.73 Personal history of transient ischemic attack (TIA), and cerebral infarction without residual deficits

== ENCOUNTER → 2017-07-12 | Outpatient (CLI) | payer OTHER ==
--- NOTE | 2017-07-12 11:33 | DIAGNOSTIC IMAGING REPORT ---
MRI OF THE BRAIN WITHOUT CONTRAST CLINICAL HISTORY: Left leg weakness. Vertigo. COMPARISON STUDY: MRI of the brain November 22, 2016. TECHNIQUE: Utilizing a 1.5 Elaine magnet and dedicated coil, multiplanar, multiecho imaging of the brain was performed without IV contrast. FINDINGS: There are no areas of restricted diffusion. No acute intracranial hemorrhage, midline shift or mass effect is present. Ventricular system is stable. Basilar cisterns are patent. Flow-voids for the major intracranial vessels are present. No intracranial masses identified on this unenhanced exam. Numerous white matter T2 hyperintense foci are similar to exam of November 22, 2016 and likely reflect small vessel disease. The appearance of the brain is unchanged. Bilateral mastoid effusions are unchanged. Calvarium is intact. IMPRESSION: 1. No acute intracranial findings. 2. No change in appearance of the brain since exam of November 22, 2016. Electronically signed by: Christian Zambrano M.D. 07/12/2017 11:32 AM Dictated Date/Time: 07/12/2017 11:18 AM
== END | disposition home or self-care (01) ==
LOC: C.MRI 10:05
PROVIDERS: ATTEND Internal Medicine
DX: R29.898 Other symptoms and signs involving the musculoskeletal system (principal); H81.13 Benign paroxysmal vertigo, bilateral; Z86.73 Personal history of transient ischemic attack (TIA), and cerebral infarction without residual deficits

== ENCOUNTER → 2017-07-19 | Outpatient (CLI) | payer OTHER ==
[~2017-07-19] MED LIST changes: +ASPEC81 PO; -ASPI81TA21 PO; +CLBCR60 TOP; -CLC100 PO; -CLOB-65 EXT; +CLOB1SHA TOP; +LPR25 PO; +LPT40 PO; +LSN5 OR; +NTRSLP4 SL; +PLV75 PO; +SENN-65 PO; +SODI1.1P PO; -TBROPO OPL; -ZOLE5INJ IV
--- NOTE | 2017-07-19 15:50 | DIAGNOSTIC IMAGING REPORT ---
RIGHT ART DOP DUPLEX LWR EXT UNI HISTORY: 71 years-old FemalePalpable abnormality of the right groin with recent cardiac catheterization. COMPARISON: None available TECHNIQUE: Multiple real-time sonographic images of the right inguinal region were obtained assessing grayscale appearance, color and spectral analysis. FINDINGS: Incidental note is made of a likely physiologic lymph node of the right groin, 1.2 x 0.6 cm. No pseudoaneurysm is identified within the right groin. The common femoral artery and vein appear normal. Small echogenic catheterization occlusion device is noted within the common femoral artery. IMPRESSION: 1. No pseudoaneurysm identified. Common femoral artery and vein are within normal limits. 2. Small likely physiologic right inguinal lymph node is seen within the area of palpable concern. The above report was generated using voice recognition software. It may contain grammatical, syntax or spelling errors. Electronically signed by: [employer] M.D. 07/19/2017 3:49 PM Dictated Date/Time: 07/19/2017 3:43 PM
== END | disposition home or self-care (01) ==
LOC: C.ULTR 15:12
PROVIDERS: ATTEND Internal Medicine
DX: R19.09 Other intra-abdominal and pelvic swelling, mass and lump (principal)

== ENCOUNTER → 2018-01-30 | Outpatient (CLI) | payer OTHER ==
[~2018-01-30] MED LIST changes: -CLOB1SHA TOP; -SENN-65 PO
--- NOTE | 2018-01-30 15:17 | MAMMOGRAPHY REPORT ---
BILATERAL DIGITAL SCREENING MAMMOGRAM TOMOSYNTHESIS WITH CAD: 01/30/2018 CLINICAL HISTORY: Routine screening. TECHNIQUE: Breast tomosynthesis in addition to standard 2D mammography was performed. Current study was also evaluated with a Computer Aided Detection (CAD) system. COMPARISON: Comparison is made to exams dated: 01/28/2017 mammogram, 01/26/2016 mammogram, 01/19/2015 ma mmogram, 01/18/2014 mammogram, 01/16/2013 mammogram, and 01/11/2012 mammogram - [facility] er. BREAST COMPOSITION: The tissue of both breasts is heterogeneously dense, which may obscure small mas ses. FINDINGS: No suspicious masses, calcifications, or areas of architectural distortion are noted in ei ther breast. There has been no significant interval change compared to prior exams. Scattered bilate ral benign-appearing calcifications are again noted. IMPRESSION: ACR BI-RADS CATEGORY 2: BENIGN There is no mammographic evidence of malignancy. A 1 year screening mammogram is recommended. The pa tient will receive written notification of the results. Approximately 10% of breast cancers are not detected with mammography. A negative mammographic report should not delay biopsy if a clinically suggestive mass is present. Lexie Peguero M.D. /:01/30/2018 13:27:52 [employer]: Cole WASHBURN(Yovani)([place]), [facility] letter sent: Normal 1/2 BI-RADS Code: ACR BI-RADS Category 2: Benign
== END | disposition home or self-care (01) ==
LOC: C.MAMM 08:59
PROVIDERS: ATTEND Internal Medicine
DX: Z12.31 Encounter for screening mammogram for malignant neoplasm of breast (principal)

== ENCOUNTER 2022-08-13 08:28 | Inpatient (IN) ==
--- NOTE | 2022-07-13 13:17 | PAT Medication Instructions ---
Medication Instructions Date of Service July 13, 2022 Home Medications amlodipine 5 mg tablet 2.5 mg PO HS atorvastatin 40 mg tablet 40 mg PO QAM biotin 1,000 mcg chewable tablet 1,000 mcg PO QAM calcium carbonate 600 mg-vitamin D3 12.5 mcg (500 unit) capsule (Calcium 600 with Vitamin D3) 2 cap PO QAM cholecalciferol (vitamin D3) 25 mcg (1,000 unit) capsule (Vitamin D3) 2,000 unit PO QAM clobetasol 0.05 % shampoo 1 applic topical DIRECTED PRN for flare up of lupus clobetasol 0.05 % topical cream (Temovate) 1 applic topical BID clopidogrel 75 mg tablet 75 mg PO QAM docusate sodium 100 mg capsule (Colace) 100 mg PO BID fluoride (sodium) 1.1 % dental gel (PreviDent 5000 Dry Mouth) 1 applic dental DIRECTED fluticasone furoate 50 mcg/actuation blister powder for inhalation (Arnuity Ellipta) 50 mcg inhalation QAM hydroxychloroquine 200 mg tablet (Plaquenil) 200 mg PO HS lactobacillus combination no.4 3 billion cell capsule (Probiotic) 3,000 mmu cells PO QAM levothyroxine 100 mcg tablet 100 mcg PO DAILYBB lisinopril 5 mg tablet 5 mg PO HS multivitamin 1 tab PO QAM polyethylene glycol 3350 8.5 gram oral powder packet 17 g PO QAM zoledronic acid 5 mg/100 mL in mannitol 5 %-water intravenous piggybck 5 mg IV DIRECTED amlodipine 5 mg tablet 5 mg PO QAM zinc 50 mg tablet 50 mg PO QAM ASK your prescriber and surgeon hydroxychloroquine 200 mg tablet (Plaquenil) 200 mg PO HS zoledronic acid 5 mg/100 mL in mannitol 5 %-water intravenous piggybck 5 mg IV DIRECTED clopidogrel 75 mg tablet 75 mg PO QAM STOP taking 2 weeks before surgery (or as soon as possible if surgery is within 2 weeks) biotin 1,000 mcg chewable tablet 1,000 mcg PO QAM STOP taking 24 hours before surgery clobetasol 0.05 % shampoo 1 applic topical DIRECTED PRN for flare up of lupus clobetasol 0.05 % topical cream (Temovate) 1 applic topical BID DO NOT take the morning of surgery calcium carbonate 600 mg-vitamin D3 12.5 mcg (500 unit) capsule (Calcium 600 with Vitamin D3) 2 cap PO QAM cholecalciferol (vitamin D3) 25 mcg (1,000 unit) capsule (Vitamin D3) 2,000 unit PO QAM docusate sodium 100 mg capsule (Colace) 100 mg PO BID fluoride (sodium) 1.1 % dental gel (PreviDent 5000 Dry Mouth) 1 applic dental DIRECTED lactobacillus combination no.4 3 billion cell capsule (Probiotic) 3,000 mmu cells PO QAM multivitamin 1 tab PO QAM polyethylene glycol 3350 8.5 gram oral powder packet 17 g PO QAM zinc 50 mg tablet 50 mg PO QAM Take morning of surgery With a small sip of water, OTHERWISE NOTHING TO EAT OR DRINK AFTER MIDNIGHT: atorvastatin 40 mg tablet 40 mg PO QAM fluticasone furoate 50 mcg/actuation blister powder for inhalation (Arnuity Ellipta) 50 mcg inhalation QAM levothyroxine 100 mcg tablet 100 mcg PO DAILYBB amlodipine 5 mg tablet 5 mg PO QAM Take evening before surgery amlodipine 5 mg tablet 2.5 mg PO HS docusate sodium 100 mg capsule (Colace) 100 mg PO BID lisinopril 5 mg tablet 5 mg PO HS Other Notes If you have any questions please call us at [phone] or [phone] or [phone] or [phone]
--- NOTE | 2022-07-24 14:28 | Anesthesiology Consultation ---
Date of Service July 24, 2022 Assessment & Plan (1) Encounter for pre-operative examination: - check BSG am DOS. - SIADH: PCP office made aware of low Na level. Will await PCP optimization response. - syncope d/t hypoglycemia from fasting. Pt states she discussed this with Dr. Schroeder's office regarding surgery time and aware can drink apple juice if develops symptoms. - legal blindness. - cardiology pre-op evaluation 07/24/22 [facility]: "...Since her most recent visit with me that had been in January,, she is had ongoing debilitating low back pain including symptoms of left leg in must foot numbness...symptoms have been refractory to nonoperative care including multiple courses of physical therapy and injection therapy...follow-up by Dr. Schroeder of [facility] spine surgery in operative intervention is tentatively planned to be performed under general anesthesia at [facility] this month on 08/13/2022...from a cardiac perspective she is been doing well...Coronary heart disease, status post anterior ST segment elevation myocardial infarction on 07/12/2017 with PCI, drug-eluting stent to the mid LAD with diffuse diagonal disease noted also for which ongoing medication management was recommended. At the time for myocardial infarction, mild to moderate left ventricular systolic dysfunction was noted, with interval normalization of her ejection fraction 3 months post PCI to LAD...History of past stroke and retinal artery occlusion...SIADH...preoperative cardiac evaluation-patient describes stable signs and symptoms, with no recent episodes of angina.-as noted her most recent intra coronary stent had taken place in 2016-she remains on chronic dual anti-platelet therapy because of past stroke episodes x2 including history of branch retinal artery occlusion in the setting of SLE.-at present, I think it is reasonable for her to hold her clopidogrel for 7 days in advance of the upcoming spinal surgery-recommend patient remains on aspirin 81 milligrams daily without interruption-we discussed that level the patient does have risk factors for preoperative/perioperative myocardial infarction, arrhythmia, congestive heart failure, think given the nature of her debilitating back pain in lower extremity radiculopathy pain, benefits of surgery outweigh the risks and I believe that she is well compensated with regards to proceeding with surgery as planned, with an estimated low risk of perioperative cardiac complication..." - COVID screening: Per assessment on 07/24/2022: Travel screen negative, no known COVID-19 positive contacts or current COVID-19 related symptoms in past 2 weeks. Pt vaccinated. To surgeon's discretion if preop COVID testing. Chart Review Chart Review: Pending: Refer to Additional Notes / Consult section and Patient seen in Pre Admission Testing Teaching & Discussion Pre-Anesthesia Teaching/Discussion Notes: Instructed NPO after midnight before surgery, except medications with 15 cc of water. Medication instructions provided according to the PAT guidelines. History Surgery Operation Date: 08/13/22 10:05 Proposed Procedures p L3-L4 Decompression and Fusion, L4-L5 Hardware Removal, Spinal Cord Monitoring - Kayode Schroeder, Height/Weight Height: 5 ft 2 in Weight: 40.2 kg Allergies Allergy/AdvReac Type Severity Reaction Status Date / Time venlafaxine Allergy Mild RASH Unverified 07/12/22 11:03 Sulfa (Sulfonamide Allergy Unknown UNKNOWN Verified 07/12/22 11:03 Antibiotics) REACTION TO SULFA DRUGS Medications Home Medications Medication Instructions Recorded Confirmed Last Taken amlodipine 5 mg tablet 2.5 mg PO HS 03/04/19 07/12/22 03/04/19 atorvastatin 40 mg tablet 40 mg PO QAM 03/04/19 07/12/22 03/04/19 biotin 1,000 mcg chewable tablet 1,000 mcg PO QAM 03/04/19 07/12/22 03/04/19 calcium carbonate 600 mg-vitamin 2 cap PO QAM 03/04/19 07/12/22 03/04/19 D3 12.5 mcg (500 unit) capsule (Calcium 600 with Vitamin D3) cholecalciferol (vitamin D3) 25 2,000 unit PO QAM 03/04/19 07/12/22 03/04/19 mcg (1,000 unit) capsule (Vitamin D3) clobetasol 0.05 % shampoo 1 applic topical DIRECTED PRN 03/04/19 07/12/22 Unknown for flare up of lupus clobetasol 0.05 % topical cream 1 applic topical BID 03/04/19 07/12/22 03/04/19 (Temovate) clopidogrel 75 mg tablet 75 mg PO QAM 03/04/19 07/12/22 03/04/19 docusate sodium 100 mg capsule 100 mg PO BID 03/04/19 07/12/22 03/04/19 (Colace) fluoride (sodium) 1.1 % dental gel 1 applic dental DIRECTED 03/04/19 07/12/22 Unknown (PreviDent 5000 Dry Mouth) fluticasone furoate 50 50 mcg inhalation QAM 03/04/19 07/12/22 03/04/19 mcg/actuation blister powder for inhalation (Arnuity Ellipta) hydroxychloroquine 200 mg tablet 200 mg PO HS 03/04/19 07/12/22 03/03/19 (Plaquenil) lactobacillus combination no.4 3 3,000 mmu cells PO QAM 03/04/19 07/12/22 03/04/19 billion cell capsule (Probiotic) levothyroxine 100 mcg tablet 100 mcg PO DAILYBB 03/04/19 07/12/22 03/04/19 lisinopril 5 mg tablet 5 mg PO HS 03/04/19 07/12/22 Unknown multivitamin 1 tab PO QAM 03/04/19 07/12/22 03/04/19 polyethylene glycol 3350 8.5 gram 17 g PO QAM 03/04/19 07/12/22 03/04/19 oral powder packet zoledronic acid 5 mg/100 mL in 5 mg IV DIRECTED 03/04/19 07/12/22 Unknown mannitol 5 %-water intravenous piggybck amlodipine 5 mg tablet 5 mg PO QAM 07/12/22 07/12/22 Unknown zinc 50 mg tablet 50 mg PO QAM 07/12/22 07/12/22 Unknown Past Medical History Medical History (Updated 07/24/22 @ 14:54 by Tere Bernal PA-C) Chronic back pain Coronary artery disease s/p 5 stents in 2017 Degenerative disc disease Diastolic heart failure EF 58%, follows with [facility] cardio GERD (gastroesophageal reflux disease) diet controlled History of blood transfusion "with every surgery" Hypertension controlled, stable per pt Hypoglycemia with associated syncope, last syncopal episode colonoscopy fasting 8 yrs ago Hypothyroidism Myocardial Infarction (~2016) follows with Dr Jean Baptiste On anticoagulant therapy Raynaud's disease SIADH (syndrome of inappropriate ADH production) 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 no longer sees a neurologist. Systemic lupus follows with [facility] Rheumatology Patient denies h/o seizures, and blood clots. Exercise / Class Metabolic Activity II 4-5 Yardwork/Stairs/Walk up hill (denies CP or SOB with 1 FOS) Past Family History Family History Other No family history of adverse response to anesthesia Past Surgical History Surgical History (Updated 07/24/22 @ 14:53 by Tere Bernal PA-C) History of cardiac cath (~2016) at [facility] -5 stents-2017 History of cataract surgery bilateral History of colonoscopy History of esophagogastroduodenoscopy (EGD) History of heart artery stent (~2016) x5 stents (at [facility]) History of open reduction and internal fixation (ORIF) procedure right wrist History of tonsillectomy History of total hip arthroplasty left Hx of vaginal hysterectomy S/P lumbar fusion x2 Past Anesthesia History No Family Hx of Anesthesia Complications and Other (slow to wake) History of PONV No Hx of PONV and No Hx of Motion Sickness Social History Smoking Status: Former smoker tobacco type: cigarettes Do You Dip or Chew Tobacco: No Smoking End Date: 1993 Hx Alcohol Use: Yes Alcohol type: wine alcohol intake frequency: a few times a month Hx Substance Use: No substance use type: does not use Review of Systems Patient denies chest pain, shortness of breath, dyspnea on exertion, snoring, witnessed apneas, fever, chills, cough, wheezing, or palpitations. Physical Exam Vital Signs Vitals BP 153/85 P 65 TEMP 97.7 SP02 99% on RA RESP 18 Physical Full cervical extension range of motion without pain TMD 3.5 finger breadths Mallampati Score 1 Dentition: intact, several caps throughout; denies chipped or loose teeth, implants or bridges Lungs: normal respiratory effort. Clear throughout to auscultation, no adventitious breath sounds Cardiac: regular rate and rhythm, no murmurs noted Carotid arteries: negative bruit bilat Lab Results Anesthesia Preop Results Results Anesthesia Widget: WBC 4.08 K/ul (4.8-10.8) L 07/24/22 Hgb 11.0 g/dl (12.0-16.0) L 07/24/22 Hct 33.5 % (34.1-44.9) L 07/24/22 Plt 260 K/uL (130-400) 07/24/22 Na 127 mmol/L (136-145) L 07/24/22 K 4.5 mmol/L (3.5-5.1) 07/24/22 Cl 94 mmol/L (98-107) L 07/24/22 CO2 30 mmol/L (21-32) 07/24/22 BUN 21 mg/dl (6-23) 07/24/22 Creat 0.72 mg/dl (0.6-1.2) 07/24/22 Glucose Level 72 mg/dl (70-99(Fasting)) 07/24/22 PT 11.7 Seconds (9.0-12.0) 07/24/22 PTT 30.2 Seconds (21.0-31.0) 07/24/22 INR 1.1 (0.9-1.1) 07/24/22 Urine Color Yellow 07/24/22 Urine Appearance Clear (Clear) 07/24/22 Urine pH 7.5 (4.5-7.5) 07/24/22 Urine Specific [place] 1.008 (1.000-1.030) 07/24/22 Urine Protein Negative (Negative) 07/24/22 Urine Glucose (UA) Negative (Negative) 07/24/22 Urine Ketones Negative (Negative) 07/24/22 Urine Blood Negative (Negative) 07/24/22 Urine Nitrite Negative (Negative) 07/24/22 Urine Bilirubin Negative (Negative) 07/24/22 Urine Urobilinogen Negative (Negative) 07/24/22 Urine Leukocyte Esterase Negative (Negative) 07/24/22 Blood Type A Positive 07/24/22 Antibody Screen NEGATIVE 07/24/22 Testing Electrocardiogram Date: 07/24/22 NSR, rate 70 bpm Chest X-Ray Date: 07/24/22 Coronary arterial stent. Cardiomediastinal and hilar silhouettes are within normal limits. Lungs are hyperinflated with diaphragmatic flattening. No pneumothorax, pleural effusion, airspace consolidation or overt pulmonary edema. Degenerative changes of the shoulders and spine. Healed chronic left-sided rib fractures. Lumbar levoscoliosis. IMPRESSION: No acute process. Echocardiogram Date: 10/15/17 EF 58% Grade II diastolic dysfunction Mild to moderate mitral regurgitation No LV wall motion abnormality
[~2022-08-13 08:28] MED LIST changes: +ACETAMINOPHEN 500 MG TAB PO SCH; -ASPEC81 PO; -BIOT1TAB5 PO; -CALCTAB7 PO; -CLBCR60 TOP; +CeleBREX 200 MG CAP PO SCH; -FLNIN/ NAE; +GABAPENTIN 300 MG CAP PO SCH; -LEVO100T PO; -LPR25 PO; -LPT40 PO; +LR 15ML/HR IV SCH; -LSN5 OR; -MRLP527 PO; -MULT-671 PO; -NTRSLP4 SL; -PLQ200 PO; -PLV75 PO; -PROB1CAP41 PO; -SODI1.1P PO; -VTMD1000 PO; +ceFAZolin 1000MG 1,000 MG/7.5 ML SYR IV SCH
[2022-08-13] MEDS ORDERED: GLYCOPYRROLATE 0.2 MG/ML VIAL ONE (09:17)
[2022-08-13] MEDS ORDERED: fentaNYL citrate 100 MCG/2 ML VIAL ONE (09:17)
[2022-08-13] MEDS ORDERED: NEOSTIGMINE METHYLSULFATE 1 MG/ML 10ML VIAL ONE (09:17)
[2022-08-13] MEDS ORDERED: DEXAMETHASONE SOD INJ 4 MG/ML VIAL ONE (09:17)
[2022-08-13] MEDS ORDERED: PROPOFOL IV EMULSION 10 MG/ML 20 ML VIAL IV ONE (09:17)
[2022-08-13] MEDS ORDERED: ONDANSETRON INJ 2 MG/ML 2 ML VIAL ONE (09:17)
[2022-08-13] MEDS ORDERED: ePHEDrine sulfate 50 MG/ML AMP IV PRN (09:38)
[2022-08-13] MEDS ORDERED: fentaNYL citrate 100 MCG/2 ML VIAL IV PRN (09:38)
[2022-08-13] MEDS ORDERED: ATROPINE SULFATE 0.1 MG/ML 10ML SYR IV PRN (09:38)
[2022-08-13] MEDS ORDERED: ONDANSETRON INJ 2 MG/ML 2 ML VIAL IV PRN ×2 (09:38→14:30)
[2022-08-13] MEDS ORDERED: Nursing to Pharmacy Communication SCH (10:00)
[2022-08-13] MEDS ORDERED: D5W AND LACTATED RINGERS 1,000 ML IV SCH (10:00)
--- NOTE | 2022-08-13 11:01 | History & Physical Bridge Note ---
Date of Service August 13, 2022 History & Physical Bridge Note I have examined the patient, reviewed the History & Physical and in the interval since the performance of the History & Physical I have noted the following changes of clinical significance: no changes noted
--- NOTE | 2022-08-13 11:02 | History & Physical Report ---
Date of Service August 13, 2022 Assessment & Plan (1) Lumbar stenosis with neurogenic claudication: Plan: L3-4 decompression fusion, L4-L5 hardware removal History of Present Illness Chief Complaint: Back and leg pain Primary Care Provider: Missy Murillo MD This is a 76-year-old female well-known to me the presents with chronic persistent back and leg pain after failing course of nonoperative care she is here for surgical intervention. Allergies Allergy/AdvReac Type Severity Reaction Status Date / Time venlafaxine Allergy Mild RASH Verified 08/13/22 08:57 Sulfa (Sulfonamide Allergy Unknown UNKNOWN Verified 08/13/22 08:57 Antibiotics) REACTION TO SULFA DRUGS Home Medications Medication Instructions Recorded Confirmed Type amlodipine 5 mg tablet 2.5 mg PO HS 03/04/19 08/13/22 History atorvastatin 40 mg tablet 40 mg PO QAM 03/04/19 08/13/22 History biotin 1,000 mcg chewable tablet 1,000 mcg PO QAM 03/04/19 08/13/22 History calcium carbonate 600 mg-vitamin 2 cap PO QAM 03/04/19 08/13/22 History D3 12.5 mcg (500 unit) capsule (Calcium 600 with Vitamin D3) cholecalciferol (vitamin D3) 25 2,000 unit PO QAM 03/04/19 08/13/22 History mcg (1,000 unit) capsule (Vitamin D3) clobetasol 0.05 % shampoo 1 applic topical DIRECTED PRN 03/04/19 07/12/22 History for flare up of lupus clobetasol 0.05 % topical cream 1 applic topical BID 03/04/19 08/13/22 History (Temovate) clopidogrel 75 mg tablet 75 mg PO QAM 03/04/19 08/13/22 History docusate sodium 100 mg capsule 100 mg PO BID 03/04/19 08/13/22 History (Colace) fluoride (sodium) 1.1 % dental gel 1 applic dental DIRECTED 03/04/19 07/12/22 History (PreviDent 5000 Dry Mouth) fluticasone furoate 50 50 mcg inhalation QAM 03/04/19 08/13/22 History mcg/actuation blister powder for inhalation (Arnuity Ellipta) hydroxychloroquine 200 mg tablet 200 mg PO HS 03/04/19 08/13/22 History (Plaquenil) lactobacillus combination no.4 3 3,000 mmu cells PO QAM 03/04/19 08/13/22 History billion cell capsule (Probiotic) levothyroxine 100 mcg tablet 100 mcg PO DAILYBB 03/04/19 08/13/22 History lisinopril 5 mg tablet 5 mg PO HS 03/04/19 08/13/22 History multivitamin 1 tab PO QAM 03/04/19 08/13/22 History polyethylene glycol 3350 8.5 gram 17 g PO QAM 03/04/19 08/13/22 History oral powder packet zoledronic acid 5 mg/100 mL in 5 mg IV DIRECTED 03/04/19 08/13/22 History mannitol 5 %-water intravenous piggybck amlodipine 5 mg tablet 5 mg PO QAM 07/12/22 08/13/22 History zinc 50 mg tablet 50 mg PO QAM 07/12/22 08/13/22 History Past Med/Surg History Medical History Chronic back pain Coronary artery disease s/p 5 stents in 2017 Degenerative disc disease Diastolic heart failure EF 58%, follows with [facility] cardio GERD (gastroesophageal reflux disease) diet controlled History of blood transfusion "with every surgery" Hypertension controlled, stable per pt Hypoglycemia with associated syncope, last syncopal episode colonoscopy fasting 8 yrs ago Hypothyroidism Myocardial Infarction (~2016) follows with Dr Jean Baptiste On anticoagulant therapy Raynaud's disease SIADH (syndrome of inappropriate ADH production) 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 no longer sees a neurologist. Systemic lupus follows with [facility] Rheumatology Surgical History History of cardiac cath (~2017) at [facility] -5 stents-2017 History of cataract surgery bilateral History of colonoscopy History of esophagogastroduodenoscopy (EGD) History of heart artery stent (~2017) x5 stents (at [facility]) History of open reduction and internal fixation (ORIF) procedure right wrist History of tonsillectomy History of total hip arthroplasty left Hx of vaginal hysterectomy S/P lumbar fusion x2 Family History Other No family history of adverse response to anesthesia Social History Smoking Status: Former smoker Tobacco Type: Cigarettes Smoking End Date: 1993; Second Hand Exposure: No; Do You Dip or Chew Tobacco: No; Tobacco Cessation Education Requested by Patient: No Hx Alcohol Use: Yes Alcohol type: wine Hx Substance Use: No Preferred Language: Serbian Communication Ability: Effective Communication Ability Comment: legally blind Visual Impairment: No Limitations Hearing Ability: Normal Cafeteria Clerk Required: No Beliefs That Will Affect Care: None Current Living Situation: Spouse current occupational status: retired Other Information That Helps Us Care for You: No Feels Safe at Home: Yes Safety Concerns: Feels Safe At This Time Assistive Devices: Cane, Glasses and Hearing Aid - Bilateral Assistive Devices Comment: upper and lower partials Physical Exam Physical Exam: Patient is alert and oriented Heart regular rhythm Lungs clear Results & Data Results & Data ([facility]) Vital Signs (Past 12 Hours) Vital Signs Temp Pulse Resp BP Pulse Ox O2 Del Method 08/13/22 09:04 36.7 C 67 16 156/87 H 98 Room Air
[2022-08-13] MEDS ORDERED: BUPIVACAINE/EPINEPHRINE 0.25% 1:200,000 30 ML VIAL ONE (11:19)
[2022-08-13] MEDS ORDERED: ceFAZolin 330 MG/ML 1 GM VIAL ONE (11:19)
[2022-08-13] MEDS ORDERED: LIDOCAINE 2% MPF LOCAL 5 ML VIAL INFIL ONE (12:11)
[2022-08-13] MEDS ORDERED: ROCURONIUM BROMIDE 10 MG/ML 5 ML VIAL IV ONE (12:11)
[2022-08-13] MEDS ORDERED: ePHEDrine sulfate 50 MG/ML SYR ONE (12:15)
[2022-08-13] MEDS ORDERED: FLOSEAL HEMOSTATIC MATRIX 10ML TOP ONE (13:01)
[2022-08-13] MEDS ORDERED: PHENYLEPHRINE HCL 10 MG/ML VIAL ONE (13:05)
--- NOTE | 2022-08-13 13:22 | Operative Report ---
Post Operative Report Pre & Post Diagnosis Operation Date: 08/13/22 10:05 Pre-Op Diagnosis: Spinal Stenosis, Lumbar Region without Neurogenic Post-Op Diagnosis: Spinal Stenosis, Lumbar Region without Neurogenic I identified the patient and participated in the time-out.: Yes Procedure Operation Date: 08/13/22 10:05 Actual Procedures #1 removal of posterior instrumentation L4-5. #2 exploration of fusion L4-5. 3 lumbar decompression with bilateral medial facetectomies and foraminotomies L2- L3 L3-L4. #4 posterior spinal fusion L3-L4 per #5 placement posterior instrumentation L3-L4. #6 interbody fusion L3-L4. #7 placement of Spira 8 x 22 mm cage at L3-L4. #8 placement locally harvested morselized autograft and posterior gutters. #9 placement of I factor combined with V toss in interbody space and posterior gutters. Surgeon Kayode Schroeder DO Roller Stainer Damari Lawson Estimated Blood Loss 70 Findings Consistent with Post-Op Diagnosis Specimens None Indications This is a 76-year-old female who presents above-mentioned diagnosis after failing course of nonoperative care is here for the above-mentioned procedure. Description of Procedure Patient was met with identified and informed consent obtained. Patient was then taken to the operative suite underwent intubation and placed in a prone position the Albert table atop the Tai frame. All bony prominences well-padded eyes inspected to ensure no external pressure placed upon them. This point the lumbar spine was prepped and draped no sterile fashion. Sharp dissection with assistance of bradycardia was then performed down to and exposing the lamina transverse processes of L3 and instrumentation at L4-L5 bilaterally. Then proceeded to remove the hardware bilaterally explore the fusion mass noting to be mature and intact. Then performed a complete laminectomy of L3 partial laminectomy of L2 including bilateral medial facetectomies and foraminotomies addressing severe neural compression. Pedicle screws then placed at L3 and L4 bilaterally with assistance of fluoroscopy and by way of a transforaminal approach on the left complete discectomy of L3-L4 was performed endplates curetted to subcortical bleeding bone and an 8 x 22 mm spiral cage filled with I factor tapped in position. The rods were then placed and locked into final position bilaterally. The transverse processes of L3-L4 burred to subcortical bleeding bone. I factor combined with V toss and locally harvested morselized autograft was placed in the posterior gutters. 15 round ANNAMARIA drain inserted. The incision was then closed with 1 Vicryl the fascia 2-0 Vicryl subcutaneously and 4 Monocryl for final skin closure. Steri-Strip sterile dressings placed. Patient waken taken PACU stable condition. Please note spinal cord monitoring was utilized at the procedure no changes noted. Lastly Damari Lawson was present at the entire surgeon while the patient positioning complex portions of the surgery and final skin closure. I attest to the content of the Intraoperative Record and any orders documented therein. Any exceptions are noted below.
--- NOTE | 2022-08-13 13:49 | Fluoroscopy Report ---
FL lumbar spine 2-3V CLINICAL HISTORY: L3-L4 DECOMP/FUSION, L4-L5 HARDWARE REMOVAL COMPARISON STUDY: Lumbar spine radiographs March 04, 2019. FLUOROSCOPY TIME: 13 seconds. FLUOROSCOPIC IMAGES: 2 FINDINGS: Previous L4-L5 discectomy is noted. L4 and L5 pedicle screws were removed. Interval L3-L4 d iscectomy is noted with posterior decompression and bilateral screw fusion. Hardware is intact. IMPRESSION: Hardware removal with interval L3-L4 discectomy, posterior decompression and bilateral p edicle screw fusion. ACT 112: Negative or not required by law. Electronically signed by: Christian Zambrano M.D. 08/13/2022 1:48 PM
--- NOTE | 2022-08-13 14:05 | Anesthesiology Progress Note ---
Date of Service August 13, 2022 Anesthesia Post Procedure Vital Signs Vital Signs: Temp Pulse Pulse Resp BP Pulse Ox O2 Del Method 08/13/22 13:50 71 12 124/68 98 Oxymask 08/13/22 13:40 70 19 124/71 100 Oxymask 08/13/22 13:34 98.1 F 71 12 131/78 98 Oxymask 08/13/22 09:04 98.1 F 67 16 156/87 H 98 Room Air O2 Flow Rate 08/13/22 13:50 6 08/13/22 13:40 6 08/13/22 13:34 6 08/13/22 09:04 Pain Intensity Lower Back: Pain Intensity: 7 Transfer of Care Handoff Completed per policy Notes Mental Status: alert / awake / arousable and participated in evaluation Patient Amnestic to Procedure: Yes Nausea / Vomiting: adequately controlled Pain: adequately controlled Airway Patency, RR, SpO2: stable & adequate BP & HR: stable & adequate Hydration State: stable & adequate Anesthetic Complications: no major complications apparent and Pt Satisfied with anesthetic care
[2022-08-13] MEDS ORDERED: LORazepam 0.5 MG in SYRINGE 0.25 ML IV PRN (14:30)
[2022-08-13] MEDS ORDERED: MAGNESIUM HYDROXIDE SUSP 30 ML UDC PO PRN (14:30)
[2022-08-13] MEDS ORDERED: ALUMINUM/MAGNESIUM SUSP 30 ML UDC PO PRN (14:30)
[2022-08-13] MEDS ORDERED: FLUORIDE 1.1% DT SCH (14:30)
[2022-08-13] MEDS ORDERED: hydrOXYzine HCl 25 MG TAB PO PRN (14:30)
[2022-08-13] MEDS ORDERED: SOD PHOSPHATE/SOD BIPHOSPHATE ENEMA 132 ML BTL PR PRN (14:30)
[2022-08-13] MEDS ORDERED: ONDANSETRON 4 MG OD TAB PO PRN (14:30)
[2022-08-13] MEDS ORDERED: NALOXONE HCL 0.4 MG/1 ML VIAL/CARP IV PRN (14:30)
[2022-08-13] MEDS ORDERED: traMADol HCL 50 MG TABLET PO PRN (14:30)
[2022-08-13] MEDS ORDERED: LORazepam 0.5 MG TAB PO PRN (14:30)
[2022-08-13] MEDS ORDERED: PROMETHAZINE HCL 12.5 MG in SODIUM CHLORIDE 0.9% 50 ML IV PRN (14:30)
[2022-08-13] MEDS ORDERED: ACETAMINOPHEN 600 MG/60 ML IV PRN (14:30)
[2022-08-13] MEDS ORDERED: HYDROmorphone INJ 1 MG/ML SYRINGE IV PRN (14:30)
[2022-08-13] MEDS ORDERED: ACETAMINOPHEN 500 MG TAB PO PRN (14:30)
[2022-08-13] MEDS ORDERED: METOCLOPRAMIDE HCL INJ 5 MG/ML 2 ML VIAL IV PRN (14:30)
[2022-08-13] MEDS ORDERED: diphenhydrAMINE Capsule 25 MG CAP PO PRN (14:30)
[2022-08-13] MEDS ORDERED: bisacodyL 10 MG SUPP PR PRN (14:30)
[2022-08-13] MEDS ORDERED: FAMOTIDINE 20 MG TAB PO PRN (14:30)
[2022-08-13] MEDS ORDERED: HYDROmorphone INJ 0.5 MG/0.5 ML SYR IV PRN (14:30)
[2022-08-13] MEDS: LACTATED RINGER'S 1,000 ML IV SCH (15:45)
[2022-08-13] MEDS: CLOBETASOL- ORDER AWAITING ACTION SCH (16:09)
--- NOTE | 2022-08-13 16:24 | Consultation ---
Date of Consultation August 13, 2022 Assessment & Plan (1) Lumbar stenosis with neurogenic claudication: (2) CAD (coronary artery disease): (3) Diastolic heart failure: (4) Systemic lupus: (5) Raynaud's disease: (6) Hypothyroidism: (7) Hypertension: (8) GERD (gastroesophageal reflux disease): Plan Ms. Gaona is a fifi 76 year old female who id a patient of Dr. Schroeder's who underwent a decompression/fusion with spinal cord monitoring and application of bone graft. 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 Dr. Schroeder consulted the [facility] service for post- operative medical management. When I evaluated the patient, she was sitting upright in her hospital bed in no apparent distress. Patient denies HUGGINS, dizziness, SOB, CP, N/V/D, skin changes. Lumbar stenosis with neurogenic claudication: POD #0; decompression/fusion with spinal cord monitoring and application of bone graft 9 Hgb 11.0; trend CBC in AM EBL: 70mL ANNAMARIA drain serosangenous drainage Per Ortho for pain control, wound care, anticoagulation, and activities. Continue ISB PT/OT when appropriate CAD: Diastolic HFpEF: Recent ECHO EF 58% s/p stent x5 in 2016 HTN: Stable post-op; continue Amlodipine and Lisinopril H/O CVA: CVA x2 in 2007 Reports having TIA's Plavix on hold post-op; will defer to Dr. Schroeder for when to resume; consult team follow. SLE Raynaud's disease: On Plaquenil and follows with [facility] Rheumatology Q 6 months Hypothyroidism: Stable: continue levothyroxine Disposition: PCP: Dr. Murillo VTE Prophylaxis: TEDS/SCDS Code Status: Full Thank you for consulting the [facility] service. Please do not hesitate to reach out 10/06 via [facility] for further assistance. Supervising Physician Co-Signing Physician Notes Pt was seen and examined. Agreed with Kacy RED exam, assessment and plan. 76 yo female with PMH of CVA, CAD s/p stent x5 in 2017, HTN, GERD, hypothyroidism failed conservative treatment. S/P lumbar decompression and fusion performed today by Dr. Schroeder. No postop complication. Continue pain control. PT/OT eval. Incentive spirometry. Will monitor H/H. Fall precaution. Continue monitor closely. MD Shereen History of Present Illness Requesting Physician: Dr. Schroeder Reason for Consultation: post-operative medical management Attending Physician: Kayode Schroeder DO History of Present Illness Ms. Gaona is a fifi 76 year old female who id a patient of Dr. Schroeder's who underwent a decompression/fusion with spinal cord monitoring and application of bone graft. 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 Dr. Schroeder consulted the [facility] Hospitalist service for post-operative medical management. When I evaluated the patient, she was sitting upright in her hospital bed in no apparent distress. Patient denies HUGGINS, dizziness, SOB, CP, N/V/D, skin changes. Please see A/P for further details. Allergies Allergy/AdvReac Type Severity Reaction Status Date / Time venlafaxine Allergy Mild RASH Verified 08/13/22 08:57 Sulfa (Sulfonamide Allergy Unknown UNKNOWN Verified 08/13/22 08:57 Antibiotics) REACTION TO SULFA DRUGS tomato AdvReac Verified 08/13/22 15:48 Home Medications Medication Instructions Recorded Confirmed Type amlodipine 5 mg tablet 2.5 mg PO HS 03/04/19 08/13/22 History atorvastatin 40 mg tablet 40 mg PO QAM 03/04/19 08/13/22 History biotin 1,000 mcg chewable tablet 1,000 mcg PO QAM 03/04/19 08/13/22 History calcium carbonate 600 mg-vitamin 2 cap PO QAM 03/04/19 08/13/22 History D3 12.5 mcg (500 unit) capsule (Calcium 600 with Vitamin D3) cholecalciferol (vitamin D3) 25 2,000 unit PO QAM 03/04/19 08/13/22 History mcg (1,000 unit) capsule (Vitamin D3) clobetasol 0.05 % shampoo 1 applic topical DIRECTED PRN 03/04/19 07/12/22 History for flare up of lupus clobetasol 0.05 % topical cream 1 applic topical BID 03/04/19 08/13/22 History (Temovate) clopidogrel 75 mg tablet 75 mg PO QAM 03/04/19 08/13/22 History docusate sodium 100 mg capsule 100 mg PO BID 03/04/19 08/13/22 History (Colace) fluoride (sodium) 1.1 % dental gel 1 applic dental DIRECTED 03/04/19 07/12/22 History (PreviDent 5000 Dry Mouth) fluticasone furoate 50 50 mcg inhalation QAM 03/04/19 08/13/22 History mcg/actuation blister powder for inhalation (Arnuity Ellipta) hydroxychloroquine 200 mg tablet 200 mg PO HS 03/04/19 08/13/22 History (Plaquenil) lactobacillus combination no.4 3 3,000 mmu cells PO QAM 03/04/19 08/13/22 History billion cell capsule (Probiotic) levothyroxine 100 mcg tablet 100 mcg PO DAILYBB 03/04/19 08/13/22 History lisinopril 5 mg tablet 5 mg PO HS 03/04/19 08/13/22 History multivitamin 1 tab PO QAM 03/04/19 08/13/22 History polyethylene glycol 3350 8.5 gram 17 g PO QAM 03/04/19 08/13/22 History oral powder packet zoledronic acid 5 mg/100 mL in 5 mg IV DIRECTED 03/04/19 08/13/22 History mannitol 5 %-water intravenous piggybck amlodipine 5 mg tablet 5 mg PO QAM 07/12/22 08/13/22 History zinc 50 mg tablet 50 mg PO QAM 07/12/22 08/13/22 History Patient History Medical History (Updated 08/13/22 @ 16:23 by TEOFILO Carrillo) CAD (coronary artery disease) Chronic back pain Coronary artery disease s/p 5 stents in 2017 Degenerative disc disease Diastolic heart failure EF 58%, follows with [facility] GERD (gastroesophageal reflux disease) diet controlled History of blood transfusion "with every surgery" Hypertension controlled, stable per pt Hypoglycemia with associated syncope, last syncopal episode colonoscopy fasting 8 yrs ago Hypothyroidism Myocardial Infarction (~2017) follows with Dr Jean Baptiste On anticoagulant therapy Raynaud's disease SIADH (syndrome of inappropriate ADH production) 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 no longer sees a neurologist. Systemic lupus follows with [facility] Rheumatology Surgical History History of cardiac cath (~2016) at [facility] -5 stents-2017 History of cataract surgery bilateral History of colonoscopy History of esophagogastroduodenoscopy (EGD) History of heart artery stent (~2016) x5 stents (at [facility]) History of open reduction and internal fixation (ORIF) procedure right wrist History of tonsillectomy History of total hip arthroplasty left Hx of vaginal hysterectomy S/P lumbar fusion x2 Family History Other No family history of adverse response to anesthesia Social History Smoking Status: Former smoker Tobacco Type: Cigarettes Smoking End Date: 1993; Second Hand Exposure: No; Do You Dip or Chew Tobacco: No; Tobacco Cessation Education Requested by Patient: No Hx Alcohol Use: Yes Alcohol type: wine Hx Substance Use: No Preferred Language: Nigerian Communication Ability: Effective Communication Ability Comment: legally blind Visual Impairment: No Limitations Hearing Ability: Normal Cable Operator Required: No Beliefs That Will Affect Care: None Current Living Situation: Spouse current occupational status: retired Other Information That Helps Us Care for You: No Feels Safe at Home: Yes Safety Concerns: Feels Safe At This Time Assistive Devices: Cane, Glasses and Hearing Aid - Bilateral Assistive Devices Comment: upper and lower partials Review of Systems Review of Systems: Neuro: (-) Falls, trauma, slurred speech HEENT: (-) HUGGINS, dizziness, dysphagia, visual or auditory changes CV: (-) CP, palpitations, swelling Resp: (-) SOB GI: (-) appetite changes, N/V/D, bowel changes : (-) urinary changes Skin: (-) rashes Psych: (-) anxiety, depression Physical Exam Physical Exam: Neuro: AAOx4, PERRLA, no aphagia, memory changes, CNII-XII grossly intact HEENT: head normocephalic, moist mucus membranes CV: S1/S2, (-) M/G/R, (-) edema, cap refill < 3 seconds Resp: Lungs CTA in all [place]. On RA GI: Abdomen S/NT/ND, Ax4 bowel sounds, (-) CVA tenderness Musculoskeletal: 5/5 B/L UE strength, 5/5 B/L LE strength. No gait disturbance Skin: (-) rashes , (-) erythema. Psych: euthymic mood Results & Data ([facility]) Vital Signs (Past 12 Hours) Vital Signs Temp Pulse Pulse Resp BP Pulse Ox O2 Del Method 08/13/22 15:41 90 16 115/73 98 Room Air 08/13/22 15:08 64 16 110/72 100 Room Air 08/13/22 14:30 36.4 C L 60 18 115/70 100 Room Air 08/13/22 14:15 61 16 115/75 98 Room Air 08/13/22 14:00 36.7 C 66 15 109/70 98 Room Air 08/13/22 13:50 71 12 124/68 98 Oxymask 08/13/22 13:40 70 19 124/71 100 Oxymask 08/13/22 13:34 36.7 C 71 12 131/78 98 Oxymask 08/13/22 09:04 36.7 C 67 16 156/87 H 98 Room Air O2 Flow Rate 08/13/22 15:41 08/13/22 15:08 08/13/22 14:30 08/13/22 14:15 08/13/22 14:00 08/13/22 13:50 6 08/13/22 13:40 6 08/13/22 13:34 6 08/13/22 09:04 Diagnostic Findings Lumbar Spine X-Ray 08/13/22 00:00 FL lumbar spine 2-3V CLINICAL HISTORY: L3-L4 DECOMP/FUSION, L4-L5 HARDWARE REMOVAL COMPARISON STUDY: Lumbar spine radiographs March 04, 2019. FLUOROSCOPY TIME: 13 seconds. FLUOROSCOPIC IMAGES: 2 FINDINGS: Previous L4-L5 discectomy is noted. L4 and L5 pedicle screws were removed. Interval L3-L4 discectomy is noted with posterior decompression and bilateral screw fusion. Hardware is intact. IMPRESSION: Hardware removal with interval L3-L4 discectomy, posterior decompression and bilateral pedicle screw fusion. ACT 112: Negative or not required by law. Electronically signed by: Christian Zambrano M.D. 08/13/2022 1:48 PM
[2022-08-13] MEDS: ceFAZolin 1000MG 1,000 MG/7.5 ML SYR IV SCH (18:24)
[2022-08-13] MEDS: oxyCODONE HCL IR 5 MG TAB (IMMEDIATE RELEASE) PO PRN (20:29)
[2022-08-13] MEDS: DOCUSATE SODIUM/SENNA 50/8.6MG TAB PO SCH (20:29)
[2022-08-13] MEDS: HYDROXYCHLOROQUINE SULFATE 200 MG TAB PO SCH (20:30)
[2022-08-13] MEDS ORDERED: lisinopril 5 MG TAB PO SCH (21:00)
[2022-08-13] MEDS ORDERED: amLODIPine BESYLATE 5 MG TAB PO SCH (21:00)
[2022-08-14] MEDS: CLOBETASOL- ORDER AWAITING ACTION SCH ×3 (01:44→15:20)
[2022-08-14] MEDS: ceFAZolin 1000MG 1,000 MG/7.5 ML SYR IV SCH (02:54)
[2022-08-14] MEDS: LACTATED RINGER'S 1,000 ML IV SCH (04:01)
[2022-08-14] MEDS: POLYETHYLENE (MIRALAX) 17 GM PACK PO SCH ×3 (05:58→17:52)
[2022-08-14] MEDS ORDERED: LEVOTHYROXINE SODIUM 100 MCG TABLET PO SCH (06:30)
[2022-08-14 06:36] LABS: Hematocrit (blood only) 26.5 % (34.1-44.9); Hemoglobin 9.1 g/dl (12.0-16.0); Immature Granulocytes # (auto) 0.02 K/uL (0.00-0.02); Immature Granulocytes % (auto) 0.3 %; Lymphocytes # (auto) 0.52 K/uL (1.2-3.4); Lymphocytes % (auto) 7.6 %; Mean Corpuscular Hgb Conc 34.3 g/dL (32.0-36.0); Mean Corpuscular Volume 87.5 fL (80.0-100.0); Mean Platelet Volume 9.9 fL (9.4-12.3); Monocytes # (auto) 0.49 K/uL (0.24-0.82); Monocytes % (auto) 7.1 %; Neutrophils # (auto) 5.85 K/uL (1.4-6.5); Platelet Count 202 K/uL (130-400); RDW Coefficient of Variation 13.1 % (11.5-14.5); RDW Standard Deviation 41.4 fL (36.4-46.3); Red Blood Count 3.03 M/uL (3.93-5.22); White Blood Count 6.88 K/ul (4.8-10.8)
[2022-08-14 07:09] LABS: BUN Creatinine Ratio 27.4 (10-20); Calcium 8.1 mg/dl (8.5-10.1); Creatinine Clr Calc Pharmacy 37.1 ml/min; Est GFR (African American) 79.4 ml/min; Est GFR (Non-African American) 68.5 ml/min; Potassium 4.7 mmol/L (3.5-5.1)
[2022-08-14] MEDS: oxyCODONE HCL IR 5 MG TAB (IMMEDIATE RELEASE) PO PRN (08:46)
[2022-08-14] MEDS: CHOLECALCIFEROL 1,000 UNITS 25 MCG TAB PO SCH (08:47)
[2022-08-14] MEDS: ATORVASTATIN 40 MG TAB PO SCH (08:47)
[2022-08-14] MEDS: MULTIVITAMIN TAB PO SCH (08:47)
[2022-08-14] MEDS ORDERED: amLODIPine BESYLATE 5 MG TAB PO SCH (09:00)
--- NOTE | 2022-08-14 10:05 | Orthopedic Progress Note ---
Date of Service August 14, 2022 Assessment & Plan (1) Lumbar stenosis with neurogenic claudication: Plan: Assessment lumbar spinal stenosis with neurogenic claudication. Plan at this time we will continue physical therapy monitor ANNAMARIA operatively discharge home in the next few days. Admission and Anticipated Discharge Date Admission Date: August 13, 2022 Subjective Back pain controlled leg pain markedly improved Physical Exam Physical Exam: Patient is ambulating the halls with a walker and physical therapy. She is comfortable. Is good strength testing. Results & Data ([facility]) Vital Signs (Past 12 Hours) Vital Signs Temp Pulse Resp BP Pulse Ox O2 Del Method 08/14/22 07:56 36.8 C 70 16 115/79 98 Room Air 08/14/22 02:52 36.6 C 66 16 113/71 98 Room Air 08/13/22 22:30 36.4 C L 68 16 105/69 99 Room Air
[2022-08-14] MEDS: dexAMETHasone 4 MG in SYRINGE 0 ML IV SCH (10:50)
--- NOTE | 2022-08-14 14:55 | Hospitalist Progress Note ---
Date of Service August 14, 2022 Assessment & Plan (1) Lumbar stenosis with neurogenic claudication: (2) CAD (coronary artery disease): (3) Diastolic heart failure: (4) Systemic lupus: (5) Raynaud's disease: (6) Hypothyroidism: (7) Hypertension: (8) GERD (gastroesophageal reflux disease): (9) SIADH (syndrome of inappropriate ADH production): Plan Lumbar stenosis with neurogenic claudication POD #1 L3-L4 decompression fusion, L4-L5 hardware removal by Dr. Schroeder Activity and wound care orders as per ortho Pain control with bowel regimen PT/OT Monitor H/H for acute blood loss anemia and transfuse blood products PRN EBL 70cc, ANNAMARIA output 315 cc Hyponatremia History of SIADH Na+ 123 today, asymptomatic Outpatient records show baseline sodium ~ 130 Patient reports drinking several glasses of water. Start 1500 cc fluid restriction; check urine and serum osmolality, urine sodium and creatinine. Noted on Lasix at home which she has not received during hospitalization. Acute blood loss anemia Preop Hgb 11 --> 9.1 No indication for transfusion at this time CAD History of stenting x5 in 2017 Appears stable, no reports of chest pain Continue ASA, statin, beta-maría Chronic HFpEF Volume status acceptable HTN BP controlled, continue home doses of amlodipine, lisinopril, metoprolol H/O CVA CVA x2 in 2007 Continue ASA and statin; Plavix to be resumed at the discretion of spine Ortho SLE Raynaud's disease On Plaquenil and follows with [facility] Rheumatology Hypothyroidism Continue levothyroxine Dispo PCP: Dr. Murillo VTE Prophylaxis: TEDS/SCDS as per spine Ortho Admission and Anticipated Discharge Date Admission Date: August 13, 2022 Supervising Physician Co-Signing Physician Notes I have seen and examined the patient and have discussed the case with the provider above. I agree with the assessment and plan as stated. 76 yo F post op state-recovering well and she is ambulating. She has been drink alot of water today because her mouth is dry per her report. UOsm is decreased supportive of this. She is euvolemic on exam and denies nausea or uncontrolled pain. Hyponatremic at baseline. Physical exam is as above. Fluid restriction in place. Repeat sodium tonight is slightly improved. She remains asymptomatic with respect to low sodium. Cont with current plan to restrict fluid now. Hypoglycemic episode this am is resolved and monitor glucose closely as she is now on steroids. Thank you for this consultation. Vishnu, DO Subjective Follow-up for medical management, s/p lumbar decompression and fusion. Patient seen and examined. Sitting up in the chair. Offers no complaints, reports pain is well controlled. Palomino has been removed this morning. Denies numbness and tingling to the lower extremities. No chest pain or shortness of breath. Hyponatremia noted this morning -- patient reports drinking several glasses of water during her hospitalization. Review of Systems Review of Systems: ROS per HPI, all other systems reviewed and negative Physical Exam Constitutional: WD/WN, vitals as above no acute distress Sitting up in the chair Respiratory: normal respiratory effort, lungs clear to auscultation Cardiovascular: Rate/Rhythm: regular rate and regular rhythm Vessels: normal peripheral pulses Extremities: no edema Gastrointestinal (Abdomen): Percussion/Palpation: abdomen soft; abdomen nontender Musculoskeletal: S/p back surgery, strength strong and equal BLE, drain in place draining bloody drainage Skin: no rashes, warm and dry Neurologic: no focal motor deficits Various areas of ecchymosis noted Psychiatric: A+Ox3, euthymic affect Results & Data Results & Data ([facility]) Vital Signs (Past 12 Hours) Vital Signs Temp Pulse Resp BP Pulse Ox O2 Del Method 08/14/22 07:56 36.8 C 70 16 115/79 98 Room Air 08/14/22 02:52 36.6 C 66 16 113/71 98 Room Air Laboratory Results Short CBC 08/14/22 Range/Units 06:15 WBC 6.88 (4.8-10.8) K/ul Hgb 9.1 L (12.0-16.0) g/dl Hct 26.5 L (34.1-44.9) % Plt Count 202 (130-400) K/uL BMP 08/14/22 06:15 Sodium 123 L Potassium 4.7 Chloride 92 L Carbon Dioxide 26 BUN 23 Creatinine 0.84 Glucose 81 Calcium 8.1 L
--- NOTE | 2022-08-14 15:14 | Hospitalist Progress Note ---
Date of Service August 14, 2022 Assessment & Plan (1) Lumbar stenosis with neurogenic claudication: (2) CAD (coronary artery disease): (3) Diastolic heart failure: (4) Systemic lupus: (5) Raynaud's disease: (6) Hypothyroidism: (7) Hypertension: (8) GERD (gastroesophageal reflux disease): (9) SIADH (syndrome of inappropriate ADH production): Plan Lumbar stenosis with neurogenic claudication POD #1 L3-L4 decompression fusion, L4-L5 hardware removal by Dr. Schroeder Activity and wound care orders as per ortho Pain control with bowel regimen PT/OT Monitor H/H for acute blood loss anemia and transfuse blood products PRN EBL 70cc, ANNAMARIA output 315 cc Hyponatremia History of SIADH Na+ 123 today Outpatient records show baseline sodium ~ 130 Patient reports drinking several glasses of water. Start 1500 cc fluid restriction, resume home Lasix Acute blood loss anemia Preop Hgb 11 --> 9.1 No indication for transfusion at this time CAD History of stenting x5 in 2017 Appears stable, no reports of chest pain Continue ASA, statin, beta-maría Chronic HFpEF Volume status acceptable On chronic home dose Lasix HTN BP controlled, continue home doses of amlodipine, lisinopril, metoprolol H/O CVA CVA x2 in 2007 Continue ASA and statin; Plavix to be resumed at the discretion of spine Ortho SLE Raynaud's disease On Plaquenil and follows with [facility] Rheumatology Hypothyroidism Continue levothyroxine Dispo PCP: Dr. Murillo VTE Prophylaxis: TEDS/SCDS as per spine Ortho Admission and Anticipated Discharge Date Admission Date: August 13, 2022 Subjective Follow-up for medical management, s/p lumbar decompression and fusion. Patient seen and examined. Sitting up in the chair. Offers no complaints, reports pain is well controlled. Palomino has been removed this morning. Denies numbness and tingling to the lower extremities. No chest pain or shortness of breath. Hyponatremia noted this morning -- patient reports drinking several glasses of water during her hospitalization. Results & Data Results & Data ([facility]) Vital Signs (Past 12 Hours) Vital Signs Temp Pulse Resp BP Pulse Ox O2 Del Method 08/14/22 07:56 36.8 C 70 16 115/79 98 Room Air Laboratory Results Short CBC 08/14/22 Range/Units 06:15 WBC 6.88 (4.8-10.8) K/ul Hgb 9.1 L (12.0-16.0) g/dl Hct 26.5 L (34.1-44.9) % Plt Count 202 (130-400) K/uL [facility] 08/14/22 06:15 Sodium 123 L Potassium 4.7 Chloride 92 L Carbon Dioxide 26 BUN 23 Creatinine 0.84 Glucose 81 Calcium 8.1 L Medications Administered Current Inpatient Medications Acetaminophen (Acetaminophen 500 Mg Tab) 1,000 mg PO Q8H PRN PRN Reason: MILD Pain Scale 1,2,3 & Pre PT Stop: 09/12/22 14:29 Al Hydrox/Mg Hydrox/Simethicone (Aluminum/Magnesium Susp 30 Ml Udc) 30 ml PO Q6H PRN PRN Reason: Dyspepsia Stop: 09/12/22 14:29 Amlodipine Besylate (Amlodipine Besylate 5 Mg Tab) 2.5 mg PO BID [facility] Stop: 09/13/22 20:59 Aspirin (Aspirin 81 Mg Ectab) 81 mg PO DAILY [facility] Stop: 09/14/22 08:59 Atorvastatin Calcium (Atorvastatin 40 Mg Tab) 40 mg PO QAM KIRSTEN Stop: 09/13/22 08:59 Last Admin: 08/14/22 08:47 Dose: 40 mg Bisacodyl (Bisacodyl 10 Mg Supp) 10 mg CO DAILY PRN PRN Reason: Constipation Stop: 09/12/22 14:29 Diphenhydramine HCl (Diphenhydramine Capsule 25 Mg Cap) 25 mg PO Q6H PRN PRN Reason: Allergic Rhinitis/Insomnia Stop: 09/12/22 14:29 Famotidine (Famotidine 20 Mg Tab) 20 mg PO Q12H PRN PRN Reason: Dyspepsia Stop: 09/12/22 14:29 Hydromorphone HCl (Hydromorphone Inj 0.5 Mg/0.5 Ml Syr) 0.5 mg IV Q3H PRN PRN Reason: MODERATE Pain (Scale 4,5,6) & Pre PT Stop: 08/27/22 14:29 Hydromorphone HCl (Hydromorphone Inj 1 Mg/Ml Syringe) 1 mg IV Q3H PRN PRN Reason: SEVERE Pain (Scale 7,8,9,10) Stop: 08/27/22 14:29 Hydroxychloroquine Sulfate (Hydroxychloroquine Sulfate 200 Mg Tab) 200 mg PO HS KIRSTEN Stop: 09/12/22 20:59 Last Admin: 08/13/22 20:30 Dose: 200 mg Hydroxyzine HCl (Hydroxyzine Hcl 25 Mg Tab) 25 mg PO Q8H PRN PRN Reason: Anxiety Stop: 09/12/22 14:29 Promethazine HCl 12.5 mg/ (Sodium Chloride) 50.5 mls @ 202 mls/hr IV Q6H PRN PRN Reason: Nausea &/or Vomiting Stop: 09/12/22 14:29 Acetaminophen (Ofirmev) 600 mg in 60 mls @ 400 mls/hr IV Q8H PRN PRN Reason: Pain Rating 1-3 & Pre PT Stop: 08/16/22 14:29 Lorazepam 0.5 mg/ Syringe 0.5 mls @ 2 mls/min IV Q8H PRN PRN Reason: Sedation/Anxiety Stop: 09/12/22 14:29 Dexamethasone 4 mg/ Syringe 1 mls @ 1 mls/min IV DAILY KIRSTEN Stop: 08/16/22 09:02 Last Admin: 08/14/22 10:50 Dose: 1 mls/min Levothyroxine Sodium (Levothyroxine Sodium 88 Mcg Tablet) 88 mcg PO DAILYBB [facility] Stop: 09/14/22 06:29 Lisinopril (Lisinopril 2.5 Mg Tab) 2.5 mg PO DAILY KIRSTEN Stop: 09/14/22 08:59 Lorazepam (Lorazepam 0.5 Mg Tab) 0.5 mg PO Q8H PRN PRN Reason: Sedation/Anxiety Stop: 09/12/22 14:29 Magnesium Hydroxide (Magnesium Hydroxide Susp 30 Ml Udc) 30 ml PO Q24H PRN PRN Reason: Constipation Stop: 09/12/22 14:29 Metoclopramide HCl (Metoclopramide Hcl Inj 5 Mg/Ml 2 Ml Vial) 10 mg IV Q6H PRN PRN Reason: Nausea &/or Vomiting Stop: 09/12/22 14:29 Metoprolol Succinate (Metoprolol Succ 25mg Ext Rel Tab) 25 mg PO DAILY KIRSTEN Stop: 09/14/22 08:59 Miscellaneous (Clobetasol- Order Awaiting Action) 1 each N/A QS KIRSTEN Stop: 09/12/22 15:59 Last Admin: 08/14/22 07:40 Dose: Not Given Miscellaneous (Arnuity Elipta-Order Awaiting Action) 1 each N/A QS [facility] Stop: 09/12/22 15:59 Last Admin: 08/14/22 07:40 Dose: Not Given Multivitamins (Multivitamin Tab) 1 tab PO QAM [facility] Stop: 09/13/22 08:59 Last Admin: 08/14/22 08:47 Dose: 1 tab Naloxone HCl (Naloxone Hcl 0.4 Mg/1 Ml Vial/Carp) 0.1 mg IV Q5M PRN PRN Reason: Oversedation/Resp depression Stop: 09/12/22 14:29 Ondansetron HCl (Ondansetron Inj 2 Mg/Ml 2 Ml Vial) 4 mg IV Q6H PRN PRN Reason: Nausea &/or Vomiting Stop: 09/12/22 14:29 Ondansetron HCl (Ondansetron 4 Mg Od Tab) 4 mg PO Q6H PRN PRN Reason: Nausea Stop: 09/12/22 14:29 Oxycodone HCl (Oxycodone Hcl Ir 5 Mg Tab (Immediate Release)) 5 - 10 mg PO Q4H PRN PRN Reason: Pain & Pre PT Stop: 08/27/22 14:29 Last Admin: 08/14/22 08:46 Dose: 10 mg Polyethylene Glycol (Polyethylene (Miralax) 17 Gm Pack) 17 gm PO Q6 [facility] Stop: 09/13/22 05:59 Last Admin: 08/14/22 12:58 Dose: 17 gm Senna/Docusate Sodium (Docusate Sodium/Senna 50/8.6mg Tab) 2 tab PO HS [facility] Stop: 09/12/22 20:59 Last Admin: 08/13/22 20:29 Dose: 2 tab Sodium Biphosphate/Sodium Phosphate (Sod Phosphate/Sod Biphosphate Enema 132 Ml Btl) 132 ml CO ONE PRN PRN Reason: Constipation Stop: 09/12/22 14:29 Tramadol HCl (Tramadol Hcl 50 Mg Tablet) 50 - 100 mg PO Q4H PRN PRN Reason: Moderate-Severe pain & Pre PT Stop: 09/12/22 14:29 Vitamin D (Cholecalciferol 1,000 Units 25 Mcg Tab) 2,000 units PO QAM [facility] Stop: 09/13/22 08:59 Last Admin: 08/14/22 08:47 Dose: 2,000 units
[2022-08-14 18:36] LABS: Creatinine Urine Random 33.3 mg/dl; Sodium Random Urine < 10 mmol/L
[2022-08-14 19:18] LABS: Calcium 8.8 mg/dl (8.5-10.1); Creatinine Clr Calc Pharmacy 25.3 ml/min; Est GFR (Non-African American) 43.2 ml/min
[2022-08-14] MEDS: amLODIPine BESYLATE 5 MG TAB PO SCH (21:32)
[2022-08-14] MEDS: DOCUSATE SODIUM/SENNA 50/8.6MG TAB PO SCH (21:33)
[2022-08-14] MEDS: HYDROXYCHLOROQUINE SULFATE 200 MG TAB PO SCH (21:33)
[2022-08-15] MEDS: CLOBETASOL- ORDER AWAITING ACTION SCH ×2 (00:45→08:45)
[2022-08-15] MEDS: POLYETHYLENE (MIRALAX) 17 GM PACK PO SCH ×3 (00:46→11:42)
[2022-08-15 06:25] LABS: Hematocrit (blood only) 24.8 % (34.1-44.9); Hemoglobin 8.7 g/dl (12.0-16.0)
[2022-08-15] MEDS ORDERED: LEVOTHYROXINE SODIUM 88 MCG TABLET PO SCH (06:30)
[2022-08-15 06:37] LABS: BUN Creatinine Ratio 31.6 (10-20); Calcium 8.2 mg/dl (8.5-10.1); Est GFR (African American) 89.6 ml/min; Est GFR (Non-African American) 77.3 ml/min; Potassium 4.5 mmol/L (3.5-5.1)
--- NOTE | 2022-08-15 08:41 | Discharge Summary ---
Date of Service August 15, 2022 Admission HPI Per Admitting Provider This is a 76-year-old female well-known to me the presents with chronic persistent back and leg pain after failing course of nonoperative care she is here for surgical intervention. Admission Exam (Per Admitting) Constitutional WD/WN, vitals as above Eyes PERRL, conjunctivae normal, anicteric sclerae ENMT external ear and nose normal, oropharynx normal Neck normal visual inspection Respiratory normal respiratory effort Cardiovascular Extremities: normal capillary refill Gastrointestinal (Abdomen) Inspection/Auscultation: abdomen normal to inspection Musculoskeletal Spine: lumbar spine normal to inspection and + pain with thoraco-lumbar ROM Extremities: extremities normal to inspection and strength 5/5 throughout Skin no rashes, warm and dry Neurologic normal touch/pain/proprioception and moves all extremities Psychiatric A+Ox3, euthymic affect Apperance: appropriately dressed Eye Contact: good eye contact Discharge Data Consultations 08/13/22 14:30 Consult Hospitalist Routine Procedures Performed Operation Date: 08/13/22 10:05 Actual Procedures p L3-L4 Decompression and Fusion, Spinal Cord Monitoring, Application of Bone Graft (Not Applicable) - Kayode Schroeder DO s L4-L5 Hardware Removal (Not Applicable) - Kayode Schroeder DO Hospital Course (1) Lumbar stenosis with neurogenic claudication: Patient is being discharged home on postoperative day 2 status post hardware removal L4-5, TLIF L3-4. She is doing well. Pain is improved. She is passing flatus and a small bowel movement. She is ambling over 225 feet in physical therapy plus the hallways. Lab values have been stable. Sodium is improving. She states she has chronic hyponatremia. Discharge Instructions ACTIVITY RECOMMENDATIONS: SELF CARE INSTRUCTIONS AFTER THORACIC/LUMBAR FUSIONS 1. You may walk to your tolerance. It is good exercise for your legs and back. Expect some back and intermittent leg aches and pains. 2. You may perform "counter-top" level activities (make a sandwich, chika with a project, etc.). 3. No bending or lifting of more than 10 pounds or back twisting of any nature (roll like a log when turning in bed). 4. You may ride in a car for 20-30 minutes at a time. No driving until after your first visit with your doctor. 5. Frequent changes of position and restricting sitting to 30 minutes at a time will help limit the amount of back spasms and stiffness you may experience. 6. You may discontinue the use of ambulatory aids (cane, crutches, etc.) once your strength and confidence allow. 7. You may photovoltaic panel installer the shower and let water strike your incision when you arrive home at least once daily. Do not take a tub bath, sit in a hot tub or go into a swimming pool until after your first recheck in the office. SPECIAL CARE INSTRUCTIONS: VERY IMPORTANT TO READ AND REVIEW A. Your surgical incision has been closed with a cosmetic suture under the skin that will dissolve in about 6 weeks. In 14 days, you can use a pair of clean scissors and cut the suture that is left outside of the skin at the ends of your incision. 1. The small skin tapes can be removed 7 days after surgery if they have not fallen off by that point. 2. You may keep the wound open to air as much as possible to promote healing after post-op day number 5 unless told otherwise by your doctor. 3. If you think the wound looks like it is becoming infected (redness or worsening drainage) and/or you are experiencing fever, chill or worsening back pain and muscle spasms, contact the office so that we may evaluate you as soon as possible. B. Complications are uncommon, but please contact us if you have any signs or symptoms of: 1. wound infection (fever higher than 102.5 degrees F, redness, separation of wound, drainage, or increasing pain from the incision) 2. blood clots in legs (pain, swelling, redness and warmth in legs) 3. urinary tract infection (fever higher than 102.5 degrees F, burning upon urination or increased frequency of urination) 4. nerve problems (inability to walk on your toes or heels, numbness, loss of bowel or bladder control) 5. any other symptoms that concern you C. Please call the office at if you have any concerns or questions about your operation or recovery. D. No smoking! Smoking drastically decreases the chance of a solid fusion. E. Do not take any anti-inflammatory medications (Indocin, Advil, Motrin, Aspirin, Naprosyn, etc.) as these may inhibit the chance of a solid fusion. Tylenol is okay to take for pain. MANAGING PAIN AFTER SPINAL SURGERY 1. Narcotic medication is intended for short-term use and will be provided for surgical pain. Surgical pain usually lasts for a period of 4-6 weeks. Narcotic medication includes Percocet, Vicodin, Darvocet, Tylenol #3 or Lortab. 2. Longer-term pain is more appropriately treated with non-narcotic medication such as Tylenol ES. 3. Muscle spasm is not appropriately treated with narcotics. Muscle relaxers such as Soma, Flexeril or Skelaxin can be used along with Tylenol ES. 4. Remember that we all live with some "aches and pains". This is not unusual or uncommon after an injury or as we get older. a. Back pain is expected and may include muscle spasms for 4 to 6 weeks after surgery. The pain should gradually improve. If the pain worsens for no apparent reason, please contact the office. b. Intermittent leg pain may also be experienced and should not be concerned about unless it worsens for no apparent reason. If so, please contact the office. 5. We will provide appropriate medication within the normal guidelines of their prescribed use. We will also be very cautious and aware of potential abuse and extended duration of patients' medication needs. a. Pain medications are for your comfort and to assist with sleep and rest so that the tissue can heal. They are not provided in order to return to normal activity and should not be used through the day. To do so or worsening pain at night can result from ongoing tissue damage and development of tolerance to the prescribed medicine. 6. Please allow 2-3 days to process refills. Prescriptions will not be mailed but must be picked up at the office. FOLLOW UP VISIT: Keep your scheduled follow-up appointment. Any questions, please call the office at .
[2022-08-15] MEDS: oxyCODONE HCL IR 5 MG TAB (IMMEDIATE RELEASE) PO PRN ×2 (08:44→14:30)
[2022-08-15] MEDS: amLODIPine BESYLATE 5 MG TAB PO SCH (08:46)
[2022-08-15] MEDS: CHOLECALCIFEROL 1,000 UNITS 25 MCG TAB PO SCH (08:48)
[2022-08-15] MEDS: ATORVASTATIN 40 MG TAB PO SCH (08:48)
[2022-08-15] MEDS: MULTIVITAMIN TAB PO SCH (08:48)
[2022-08-15] MEDS: dexAMETHasone 4 MG in SYRINGE 0 ML IV SCH (08:49)
[2022-08-15] MEDS ORDERED: lisinopril 2.5 MG TAB PO SCH (09:00)
[2022-08-15] MEDS ORDERED: METOPROLOL SUCC 25MG EXT REL TAB PO SCH (09:00)
[2022-08-15] MEDS ORDERED: ASPIRIN 81 MG ECTAB PO SCH (09:00)
--- NOTE | 2022-08-15 14:04 | Hospitalist Progress Note ---
Date of Service August 15, 2022 Assessment & Plan (1) Lumbar stenosis with neurogenic claudication: (2) CAD (coronary artery disease): (3) Diastolic heart failure: (4) Systemic lupus: (5) Raynaud's disease: (6) Hypothyroidism: (7) Hypertension: (8) GERD (gastroesophageal reflux disease): (9) SIADH (syndrome of inappropriate ADH production): Plan Lumbar stenosis with neurogenic claudication POD #2 L3-L4 decompression fusion, L4-L5 hardware removal by Dr. Schroeder Activity and wound care orders as per ortho Pain control with bowel regimen PT/OT Monitor H/H for acute blood loss anemia and transfuse blood products PRN EBL 70cc, ANNAMARIA output 430 cc Hyponatremia History of SIADH Na+ 123 --> 124 --> 128 Outpatient records show baseline sodium ~ 130 Patient reports drinking several glasses of water on 08/14 due to dry mouth. Low urine osmo supportive of this. 1500 cc fluid restriction started with improvement in sodium Noted on Lasix at home which she has not received during hospitalization. At discharge, recommend continuing a 1500 cc fluid restriction and continuing to hold Lasix. Discussed with case management to arrange home health to draw BMP on 08/17 with results sent to PCP. Message also relayed to PCP, Dr. Murillo. No best patient is going to be staying with her daughter in [place]. Acute blood loss anemia Preop Hgb 11 --> 9.1 --> 8.7 No indication for transfusion at this time CBC to be drawn by home health on 08/17 CAD History of stenting x5 in 2017 Appears stable, no reports of chest pain Continue ASA, statin, beta-maría Per Ortho, continue to hold Plavix for an additional 7 days. Chronic HFpEF Volume status acceptable HTN BP controlled, continue home doses of amlodipine, lisinopril, metoprolol H/O CVA CVA x2 in 2007 Continue ASA and statin; Plavix as above SLE Raynaud's disease On Plaquenil and follows with [facility] Hypothyroidism Continue levothyroxine Dispo PCP: Dr. Murillo VTE Prophylaxis: TEDS/SCDS as per spine Ortho Admission and Anticipated Discharge Date Admission Date: August 13, 2022 Supervising Physician Co-Signing Physician Notes I have seen and examined the patient and have discussed the case with the provider above. I agree with the assessment and plan as stated. 76 yo F post op state-recovering well and she is ambulating. She has been drinking a lot of water lately because her mouth is dry per her report. UOsm is decreased supportive of this. She is euvolemic on exam and denies nausea or uncontrolled pain. Hyponatremic at baseline. Physical exam is as above. Fluid restriction in place. Repeat sodium today reflecting her baseline status. She remains asymptomatic with respect to low sodium. Cont with current plan to restrict fluid now. Pt to f/u w/ PCP as OP. Thank you for allowing me to participate in the care of your patient. Subjective Follow-up for medical management, s/p lumbar decompression and fusion, hardware removal. Patient seen and examined. Sitting up in the chair. Reports pain is well controlled, offers no complaints. Eager to be discharged home. Participating in therapy. Urinating without difficulty, no BM but + flatus. Denies abdominal pain and nausea. No chest pain or shortness of breath. Denies lightheadedness and dizziness. Review of Systems Review of Systems: ROS per HPI, all other systems reviewed and negative Physical Exam Constitutional: WD/WN, vitals as above no acute distress Sitting up in the chair Respiratory: normal respiratory effort, lungs clear to auscultation Cardiovascular: Rate/Rhythm: regular rate and regular rhythm Vessels: normal peripheral pulses Extremities: no edema Gastrointestinal (Abdomen): Percussion/Palpation: abdomen soft; abdomen nontender Musculoskeletal: S/p back surgery, strength strong and equal BLE, drain in place draining a small amount of serosanguineous drainage Skin: no rashes, warm and dry Neurologic: no focal motor deficits Psychiatric: A+Ox3, euthymic affect Results & Data Results & Data ([facility]) Vital Signs (Past 12 Hours) Vital Signs Temp Pulse Pulse Resp BP Pulse Ox O2 Del Method 08/15/22 12:39 36.4 C L 90 67 18 132/82 100 08/15/22 12:13 36.4 C L 90 67 18 132/82 100 08/15/22 08:10 36.4 C L 67 18 132/82 100 Room Air Laboratory Results Short CBC 08/15/22 Range/Units 05:25 Hgb 8.7 L (12.0-16.0) g/dl Hct 24.8 L (34.1-44.9) % BMP 08/14/22 08/15/22 16:52 05:25 Sodium 124 L 128 L Potassium 5.0 4.5 Chloride 92 L 97 L Carbon Dioxide 27 27 BUN 27 H 24 H Creatinine 1.23 H D 0.76 D Glucose 94 73 Calcium 8.8 8.2 L
== END 2022-08-15 15:58 | disposition home health service (06) | DRG 454 ==
LOC: ASU 08:28 → 3E 13:26

== ENCOUNTER 2022-12-31 20:42 | Inpatient (IN) ==
[2022-12-31 21:30] LABS: Albumin Globulin Ratio 1.4 (0.9-2); Albumin Level 4.3 gm/dl (3.4-5.0); BUN Creatinine Ratio 27.4 (10-20); Bilirubin,Total 0.4 mg/dl (0.2-1.0); Calcium 9.3 mg/dl (8.5-10.1); Creatinine Clr Calc Pharmacy 44.4 ml/min; Est GFR (African American) 93.4 ml/min; Est GFR (Non-African American) 80.6 ml/min; Globulin 3.1 gm/dl (2.5-4.0); Potassium 4.6 mmol/L (3.5-5.1); Total Protein 7.4 gm/dl (6.0-8.3)
[2022-12-31 21:42] LABS: INR 1.1 (0.9-1.1); Partial Thromboplastin Time 27.7 Seconds (21.0-31.0); Prothrombin Time 11.7 Seconds (9.0-12.0)
[2022-12-31 21:43] LABS: Hematocrit (blood only) 36.9 % (37.0-47.0); Lymphocytes # (auto) 0.38 K/uL (1.2-3.4); Lymphocytes % (auto) 12.7 %; Mean Corpuscular Hemoglobin 29.3 pg (25.0-34.0); Mean Corpuscular Hgb Conc 35.2 g/dL (32.0-36.0); Mean Corpuscular Volume 83.3 fL (80.0-100.0); Mean Platelet Volume 9.5 fL (9.4-12.4); Monocytes # (auto) 0.32 K/uL (0.11-0.59); Monocytes % (auto) 10.7 %; Neutrophils % (auto) 76.6 %; Platelet Count 263 K/uL (130-400); RDW Coefficient of Variation 13.6 % (11.5-14.5); RDW Standard Deviation 41.3 fL (36.4-46.3); Red Blood Count 4.43 M/uL (4.20-5.40)
[2022-12-31] MEDS ORDERED: MoRPHine SULFATE 4 MG/ML 1 ML CARP\\VIAL IV PRN (21:56)
[2022-12-31] MEDS ORDERED: MoRPHine SULFATE 2 MG/ML CARP IV PRN (21:56)
--- NOTE | 2022-12-31 22:02 | Emergency Department Note ---
Impression & Plan Hyponatremia, Dislocated hip ED Provider Note NAME: ISADORA BOOKER AGE: 77 SEX: F : 1945 ARRIVES VIA: Ambulance INFORMANT: Patient ED PROVIDER(S): Mario Thompson DO CHIEF COMPLAINT: left hip pain HPI: Patient is a 77-year-old female with a past medical history of left hip replacement who twisted at the sink and felt a pop and she could not stand on her hip or move. Pain is a 8 out of 10. Denies any tingling or numbness. She did not fall. No headache or neck pain. No chest pain or shortness of breath. No nausea, vomiting, or diarrhea. No other exacerbating or remitting factors. PAST MEDICAL HISTORY:See Below PAST SURGICAL HISTORY:See Below FAMILY HISTORY:See Below SOCIAL HISTORY:See Below HOME MEDICATIONS:See Below ALLERGIES:See Below VITALS:See Below PHYSICAL EXAMINATION: GENERAL: Sitting up in bed, alert, well appearing, well nourished, no distress, non-toxic EYE EXAM: normal conjunctiva. OROPHARYNX: no exudate, no erythema, lips, buccal mucosa, and tongue normal and mucous membranes are moist NECK: supple, no nuchal rigidity, no adenopathy, non-tender LUNGS: Clear to auscultation. Normal chest wall mechanics HEART: no murmurs, S1 normal and S2 normal ABDOMEN: abdomen soft, non-tender, normo-active bowel sounds, no masses, no rebound or guarding. UPPER EXTREMITIES: upper extremities are grossly normal. LOWER EXTREMITIES: No pitting edema. NEURO EXAM: Normal sensorium, cranial nerves II-XII grossly intact, normal speech, no gross weakness of arms, left short and externally rotated with tenderness over the left hip. No tenderness over the knee or ankle. DPs and PTs 2 out of 4. Gross station intact MEDICAL DECISION MAKING: Patient is a 77-year-old female who presents ER for the above-stated complaint. IV was established blood work was obtained. Labs show mild leukocytosis 3. No anemia. INR was unremarkable. BMP with a hyponatremia 124. LFTs bilirubin and TSH was unremarkable. COVID was negative. Patient was given IV morphine. Discussed with orthopedics and they recommended admission and they will take to the OR around midday tomorrow. Patient and family were updated at bedside. Discussed with Dr. Antunez for admission and further evaluation. Triage Nursing notes reviewed. Limited review of prior medical records performed Vital Signs: reviewed and remarkable for no significant abnormalities Differential diagnosis: Differential diagnoses include major intracranial, cervical, spinal, thoracic, abdominal, pelvic and neurologic injury. Fracture, contusion, sprain, strain, laceration, abrasions included as well. ER treatment provided: See below Diagnostics interpreted by me include EKG and cardiac monitoring as listed below: -Cardiac Monitoring: An order was placed for continuous cardiac monitoring. The monitor shows a rate of 60 with sinus rhythm. -ECG: none -Laboratory studies:Interpreted by me as stated above in MDM and shown below. Imaging studies: Xrays: As interpreted by me: Portable AP upright 1 view of the chest shows no focal infiltrate or pneumothorax X-rays of the left hip show dislocated left hip without fracture per my read. CTs show: none Consultation(s): Discussed with [facility] orthopedics who recommended admission to the hospitalist. Discussed with Dr. Iván Antunez for admission and further evaluation Past Med/Surg History Medical History (Updated 01/01/23 @ 01:09 by Mario Thompson DO) CAD (coronary artery disease) Chronic back pain Coronary artery disease s/p 5 stents in 2017 Degenerative disc disease Diastolic heart failure EF 58%, follows with [facility] cardio GERD (gastroesophageal reflux disease) diet controlled History of blood transfusion "with every surgery" Hypertension controlled, stable per pt Hypoglycemia with associated syncope, last syncopal episode colonoscopy fasting 8 yrs ago Hypothyroidism Myocardial Infarction (~2016) follows with Dr Jean Baptiste On anticoagulant therapy Raynaud's disease SIADH (syndrome of inappropriate ADH production) 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 no longer sees a neurologist. Systemic lupus follows with [facility] Rheumatology Surgical History History of cardiac cath (~2017) at [facility] -5 stents-2017 History of cataract surgery bilateral History of colonoscopy History of esophagogastroduodenoscopy (EGD) History of heart artery stent (~2017) x5 stents (at [facility]) History of open reduction and internal fixation (ORIF) procedure right wrist History of tonsillectomy History of total hip arthroplasty left Hx of vaginal hysterectomy S/P lumbar fusion x2 Family History Other No family history of adverse response to anesthesia Social History Smoking Status: Former smoker Tobacco Type: Cigarettes Second Hand Exposure: No; Hx Alcohol Use: Yes Alcohol type: wine Hx Substance Use: No Preferred Language: Malaysian Communication Ability: Effective Visual Impairment: No Limitations Hearing Ability: Normal Solar Energy Technician Required: No Beliefs That Will Affect Care: None marital status: Current Living Situation: Spouse current occupational status: retired Feels Safe at Home: Yes Assistive Devices: Cane and Walker Allergies Allergies Allergy/AdvReac Type Severity Reaction Status Date / Time venlafaxine Allergy Mild RASH Verified 12/31/22 23:45 Sulfa (Sulfonamide Allergy Unknown UNKNOWN Verified 12/31/22 23:45 Antibiotics) REACTION TO SULFA DRUGS tomato AdvReac Verified 12/31/22 23:45 Home Meds Home Medications Medication Instructions Recorded Confirmed atorvastatin 40 mg tablet 40 mg PO QAM 03/04/19 12/31/22 cholecalciferol (vitamin D3) 25 2,000 unit PO QAM 03/04/19 12/31/22 mcg (1,000 unit) capsule (Vitamin D3) clobetasol 0.05 % shampoo 1 applic topical DIRECTED PRN 03/04/19 12/31/22 for flare up of lupus docusate sodium 100 mg capsule 100 mg PO BID 03/04/19 12/31/22 (Colace) hydroxychloroquine 200 mg tablet 200 mg PO HS 03/04/19 12/31/22 (Plaquenil) lactobacillus combination no.4 3 3,000 mmu cells PO QAM 03/04/19 12/31/22 billion cell capsule (Probiotic) polyethylene glycol 3350 8.5 gram 17 g PO QAM 03/04/19 12/31/22 oral powder packet amlodipine 2.5 mg tablet 2.5 mg PO QPM 08/14/22 12/31/22 levothyroxine 88 mcg tablet 88 mcg PO DAILYBB 08/14/22 12/31/22 (Synthroid) lisinopril 2.5 mg tablet 2.5 mg PO DAILY 08/14/22 12/31/22 metoprolol succinate 25 mg 25 mg PO DAILY 08/14/22 12/31/22 tablet,extended release 24 hr clobetasol 0.05 % topical cream 1 applic topical BID PRN .FLARES 12/31/22 12/31/22 clopidogrel 75 mg tablet 75 mg PO DAILY 12/31/22 12/31/22 cyclosporine 0.05 % eye drops in a 1 drp OPB Q12H 12/31/22 12/31/22 dropperette denosumab 60 mg/mL subcutaneous 60 mg subcut Q6M 12/31/22 12/31/22 syringe (Prolia) ferrous sulfate 325 mg (65 mg 325 mg PO QAM 12/31/22 12/31/22 iron) tablet fluticasone propionate 50 2 spray intranasal DAILY 12/31/22 12/31/22 mcg/actuation nasal spray,suspension furosemide 20 mg tablet 30 mg PO QAM 12/31/22 12/31/22 loratadine 10 mg tablet 10 mg PO DAILY 12/31/22 12/31/22 multivitamin 1 tab PO DAILY 12/31/22 12/31/22 nitroglycerin 0.4 mg sublingual 0.4 mg sublingual .DAILY/PRN PRN 12/31/22 12/31/22 tablet Chest Pain oxycodone-acetaminophen 5 mg-325 1 tab PO Q4H PRN Pain 12/31/22 12/31/22 mg tablet tacrolimus 0.1 % topical ointment 1 applic topical BID 12/31/22 12/31/22 zinc acetate 50 mg (zinc) capsule 50 mg PO QAM 12/31/22 12/31/22 Previous Rx's Medication Instructions Recorded aspirin 81 mg tablet,delayed 81 mg PO DAILY #1 tab 08/15/22 release Results & Data (ED) Vital Signs Vital Signs - 24 hr 12/31/22 20:46 12/31/22 20:50 12/31/22 20:48 Temperature 36.6 C Temperature Source Oral Pulse Rate 67 69 69 Pulse Rate from SpO2 Sensor 72 Respiratory Rate 20 15 Respiratory Effort / Characteristics Non-Labored Spontaneous Respiratory Depth Normal Respiratory Pattern Regular Blood Pressure 182/93 H Blood Pressure Mean 122 Pulse Oximetry 98 92 Oxygen Delivery Method Room Air Sepsis Recent Fever Within 48 Hours No Sepsis New/Unexplained Change in Mental Status No Sepsis Action Taken by Nursing No Action Required 12/31/22 21:00 12/31/22 21:00 12/31/22 21:30 Temperature Temperature Source Pulse Rate 65 Pulse Rate from SpO2 Sensor 65 Respiratory Rate 14 Respiratory Effort / Characteristics Respiratory Depth Respiratory Pattern Blood Pressure 158/92 H 147/90 H Blood Pressure Mean 114 109 Pulse Oximetry 100 Oxygen Delivery Method Sepsis Recent Fever Within 48 Hours Sepsis New/Unexplained Change in Mental Status Sepsis Action Taken by Nursing 12/31/22 21:30 01/01/23 00:50 Temperature Temperature Source Pulse Rate 65 57 L Pulse Rate from SpO2 Sensor 65 Respiratory Rate 14 Respiratory Effort / Characteristics Respiratory Depth Respiratory Pattern Blood Pressure Blood Pressure Mean Pulse Oximetry 100 Oxygen Delivery Method Sepsis Recent Fever Within 48 Hours Sepsis New/Unexplained Change in Mental Status Sepsis Action Taken by Nursing Laboratory Data 12/31/22 20:53 12/31/22 20:53 Lab Results 12/31/22 12/31/22 12/31/22 Range/Units 20:53 20:53 20:53 WBC 3.00 L (4.8-10.8) K/ul RBC 4.43 (4.20-5.40) M/uL Hgb 13.0 (12.0-16.0) g/dl Hct 36.9 L (37.0-47.0) % MCV 83.3 (80.0-100.0) fL MCH 29.3 (25.0-34.0) pg MCHC 35.2 (32.0-36.0) g/dL RDW Std Deviation 41.3 (36.4-46.3) fL RDW Coeff of [place] 13.6 (11.5-14.5) % Plt Count 263 (130-400) K/uL MPV 9.5 (9.4-12.4) fL Immature Gran % (Auto) 0.0 % Neut % (Auto) 76.6 % Lymph % (Auto) 12.7 % [place] % (Auto) 10.7 % Eos % (Auto) 0.0 % Baso % (Auto) 0.0 % Neut # (Auto) 2.30 (1.40-6.50) K/uL Lymph # (Auto) 0.38 L (1.2-3.4) K/uL [place] # (Auto) 0.32 (0.11-0.59) K/uL Eos # (Auto) 0.00 (0-0.50) K/uL Baso # (Auto) 0.00 (0-0.2) K/uL Immature Gran # (Auto) 0.00 L (0.01-0.20) K/uL PT 11.7 (9.0-12.0) Seconds INR 1.1 (0.9-1.1) APTT 27.7 (21.0-31.0) Seconds PTT Ratio 1.0 Sodium 124 L (136-145) mmol/L Potassium 4.6 (3.5-5.1) mmol/L Chloride 90 L (98-107) mmol/L Carbon Dioxide 27 (21-32) mmol/L Anion Gap 7 (3-11) BUN 20 (6-23) mg/dl Creatinine 0.73 (0.6-1.2) mg/dl Est Cr Clr Drug Dosing 44.4 ml/min Est GFR ( Amer) 93.4 ml/min Est GFR (Non-Af Amer) 80.6 ml/min BUN/Creatinine Ratio 27.4 H (10-20) Glucose 96 (70-99(Fasting)) mg/dl Osmolality (280-300) mOsm/kg Calcium 9.3 (8.5-10.1) mg/dl Magnesium 2.2 (1.7-2.4) mg/dl Total Bilirubin 0.4 (0.2-1.0) mg/dl AST 41 H (13-39) U/L ALT 18 (7-52) U/L Alkaline Phosphatase 51 (34-104) U/L Total Protein 7.4 (6.0-8.3) gm/dl Albumin 4.3 (3.4-5.0) gm/dl Globulin 3.1 (2.5-4.0) gm/dl Albumin/Globulin Ratio 1.4 (0.9-2) TSH (0.300-4.500) uIu/ml SARS-CoV-2, RNA, NAAT (NEGATIVE) 12/31/22 12/31/22 12/31/22 Range/Units 20:53 20:53 22:27 WBC (4.8-10.8) K/ul RBC (4.20-5.40) M/uL Hgb (12.0-16.0) g/dl Hct (37.0-47.0) % MCV (80.0-100.0) fL MCH (25.0-34.0) pg MCHC (32.0-36.0) g/dL RDW Std Deviation (36.4-46.3) fL RDW Coeff of [place] (11.5-14.5) % Plt Count (130-400) K/uL MPV (9.4-12.4) fL Immature Gran % (Auto) % Neut % (Auto) % Lymph % (Auto) % [place] % (Auto) % Eos % (Auto) % Baso % (Auto) % Neut # (Auto) (1.40-6.50) K/uL Lymph # (Auto) (1.2-3.4) K/uL [place] # (Auto) (0.11-0.59) K/uL Eos # (Auto) (0-0.50) K/uL Baso # (Auto) (0-0.2) K/uL Immature Gran # (Auto) (0.01-0.20) K/uL PT (9.0-12.0) Seconds INR (0.9-1.1) APTT (21.0-31.0) Seconds PTT Ratio Sodium (136-145) mmol/L Potassium (3.5-5.1) mmol/L Chloride (98-107) mmol/L Carbon Dioxide (21-32) mmol/L Anion Gap (3-11) BUN (6-23) mg/dl Creatinine (0.6-1.2) mg/dl Est Cr Clr Drug Dosing ml/min Est GFR ( Amer) ml/min Est GFR (Non-Af Amer) ml/min BUN/Creatinine Ratio (10-20) Glucose (70-99(Fasting)) mg/dl Osmolality 265 L (280-300) mOsm/kg Calcium (8.5-10.1) mg/dl Magnesium (1.7-2.4) mg/dl Total Bilirubin (0.2-1.0) mg/dl AST (13-39) U/L ALT (7-52) U/L Alkaline Phosphatase (34-104) U/L Total Protein (6.0-8.3) gm/dl Albumin (3.4-5.0) gm/dl Globulin (2.5-4.0) gm/dl Albumin/Globulin Ratio (0.9-2) TSH 3.977 (0.300-4.500) uIu/ml SARS-CoV-2, RNA, NAAT NEGATIVE (NEGATIVE) Administered Medications Morphine Sulfate (Morphine Sulfate 4 Mg/Ml 1 Ml Carp\\Vial) 4 mg IV Q1H PRN PRN Reason: Severe Pain (Rating 7,8,9,10) Stop: 01/14/23 21:55 Last Admin: 12/31/22 22:30 Dose: 4 mg Documented By: [id number] Discontinued Medications Sodium Chloride (Nss) 500 mls @ 500 mls/hr IV .Q1H ONE Stop: 12/31/22 23:42 Last Admin: 12/31/22 23:44 Dose: 500 mls/hr Documented By: MWS Discharge Plan Visit Data Chief Complaint: Hip Pain Stated Complaint: HIP PAIN ED Provider: Mario Thompson Discharge Problem: Hyponatremia, Dislocated hip Forms Stand Alone Forms: My [facility] Prescriptions Prescriptions: No Action atorvastatin 40 mg tablet 40 mg PO QAM docusate sodium [Colace] 100 mg Capsule 100 mg PO BID hydroxychloroquine [Plaquenil] 200 mg Tablet 200 mg PO HS cholecalciferol (vitamin D3) [Vitamin D3] 1,000 unit Capsule 2,000 unit PO QAM clobetasol 0.05 % Shampoo 1 applic TOPICAL DIRECTED PRN (Reason: for flare up of lupus) polyethylene glycol 3350 8.5 gram Powder In Packet 17 g PO QAM Probiotic 3 billion cell Capsule 3,000 mmu cells PO QAM amlodipine 2.5 mg tablet 2.5 mg PO QPM levothyroxine [Synthroid] 88 mcg tablet 88 mcg PO DAILYBB metoprolol succinate 25 mg tablet extended release 24 hr 25 mg PO DAILY lisinopril 2.5 mg tablet 2.5 mg PO DAILY aspirin 81 mg Tablet,Delayed Release (Dr/Ec) 81 mg PO DAILY Qty: 1 0RF oxycodone-acetaminophen 5-325 mg tablet 1 tab PO Q4H PRN (Reason: Pain) Rx Instructions: MODERATE FOR UP TO 15 DOSES ferrous sulfate 325 mg (65 mg iron) Tablet 325 mg PO QAM furosemide 20 mg tablet 30 mg PO QAM clobetasol 0.05 % cream 1 applic TOPICAL BID PRN (Reason: .FLARES) Rx Instructions: APPLY TO LUPUS ON THE BODY,TWICE DAILY, NEEDED, FOR FLARES tacrolimus 0.1 % ointment 1 applic TOPICAL BID Rx Instructions: APPLY TO SPOTS ON FACE clopidogrel 75 mg tablet 75 mg PO DAILY fluticasone propionate 50 mcg/actuation spray,suspension 2 spray INTRANASAL DAILY cyclosporine 0.05 % dropperette 1 drp OPB Q12H zinc acetate 50 mg (zinc) Capsule 50 mg PO QAM loratadine 10 mg Tablet 10 mg PO DAILY nitroglycerin 0.4 mg Tablet, Sublingual 0.4 mg sublingual .DAILY/PRN PRN (Reason: Chest Pain) Rx Instructions: NEEDED FOR CHEST PAIN : ONE TABLET UNDER THE TONGUE EVERY 5 MINUTES UP TO THREE DOSES. Prolia 60 mg/mL Syringe 60 mg SUBCUT Q6M multivitamin [Multiple Vitamins Daily] Tablet 1 tab PO DAILY Referrals Referrals: Missy Murillo MD [Primary Care Provider] -
[2022-12-31 22:43] LABS: Magnesium 2.2 mg/dl (1.7-2.4)
[2022-12-31] MEDS ORDERED: SODIUM CHLORIDE 0.9% 500 ML IV ONE (22:43)
[2023-01-01] MEDS ORDERED: oxyCODONE HCL IR 5 MG TAB (IMMEDIATE RELEASE) PO PRN (00:21)
[2023-01-01] MEDS ORDERED: ACETAMINOPHEN 325 MG TAB PO PRN (00:21)
[2023-01-01] MEDS ORDERED: PROMETHAZINE HCL 6.25 MG in SODIUM CHLORIDE 0.9% 50 ML IV PRN (01:09)
[2023-01-01] MEDS ORDERED: NITROGLYCERIN SL 0.4 MG/TAB TAB SL PRN (01:47)
[2023-01-01] MEDS: MoRPHine SULFATE 2 MG/ML CARP IV PRN ×2 (01:55→10:37)
[2023-01-01 04:47] LABS: Basophils # (auto) 0.01 K/uL (0-0.2); Basophils % (auto) 0.2 %; Hematocrit (blood only) 31.5 % (37.0-47.0); Hemoglobin 11.1 g/dl (12.0-16.0); Immature Granulocytes # (auto) 0.01 K/uL (0.01-0.20); Immature Granulocytes % (auto) 0.2 %; Lymphocytes # (auto) 0.58 K/uL (1.2-3.4); Lymphocytes % (auto) 13.3 %; Mean Corpuscular Hemoglobin 29.4 pg (25.0-34.0); Mean Corpuscular Hgb Conc 35.2 g/dL (32.0-36.0); Mean Corpuscular Volume 83.6 fL (80.0-100.0); Mean Platelet Volume 9.4 fL (9.4-12.4); Monocytes # (auto) 0.55 K/uL (0.11-0.59); Monocytes % (auto) 12.6 %; Neutrophils # (auto) 3.21 K/uL (1.40-6.50); Neutrophils % (auto) 73.7 %; Platelet Count 212 K/uL (130-400); RDW Coefficient of Variation 13.7 % (11.5-14.5); RDW Standard Deviation 41.7 fL (36.4-46.3); Red Blood Count 3.77 M/uL (4.20-5.40); White Blood Count 4.36 K/ul (4.8-10.8)
[2023-01-01 05:19] LABS: Calcium 8.3 mg/dl (8.5-10.1); Potassium 4.2 mmol/L (3.5-5.1)
[2023-01-01 05:25] LABS: BUN Creatinine Ratio 27.7 (10-20); Creatinine Clr Calc Pharmacy 49.8 ml/min; Est GFR (African American) 100.7 ml/min; Est GFR (Non-African American) 86.8 ml/min
[2023-01-01] MEDS: LEVOTHYROXINE SODIUM 88 MCG TABLET PO SCH (05:38)
--- NOTE | 2023-01-01 07:57 | History & Physical Report ---
Date of Service January 01, 2023 Assessment & Plan (1) Dislocated hip: Plan: Left hip dislocation without antecedent trauma Acute on chronic hyponatremia, history SIADH chronic diastolic heart failure (EF 58%, TTE 2017), patient on the dry side hx CAD status post stent/CVA SLE, stable on Plaquenil hypothyroidism, euthyroid as of today stated age chronic anemia, hemoglobin better than baseline, possible hemoconcentration past tobacco abuse Medical telemetry given hyponatremia Careful correction of sodium Orthopedics consult Re: Left hip dislocation (ER provider already in touch with [facility]. Procedure recommended in a.m.) Cardiology consult for preop eval given patient CVD history. Hold Plavix until patient seen by orthopedics, continue aspirin for secondary CAD/stroke prevention Hold home diuretic while patient n.p.o. DVT prophylaxis. SCDs Re: Possible procedure Full code Patient requesting updates from providers. Mr. Jose Alberto Gaona, contact #[phone]. Text document was generated using [employer] voice recognition software. It may contain grammatical or spelling errors. Kindly contact undersigned for clarification of any documentation item in question. History of Present Illness Chief Complaint: Left hip pain Primary Care Provider: Missy Murillo MD History obtained from patient, family, and records. Medical history significant for chronic diastolic heart failure (EF 58%, TTE 2017), CAD status post stent CVA, SLE, hypothyroidism, chronic hyponatremia secondary to SIADH, chronic anemia (baseline hemoglobin of 11), mood disorder, past tobacco abuse. Last confinement July 2022 under Orthopedics spine service for lumbar spinal stenosis status post decompression surgery. Patient experienced achy left hip pain today without trauma. No falling. Unable to stand up. No chest pain, no SOB. Patient brought to ER for evaluation. 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 Allergies Allergy/AdvReac Type Severity Reaction Status Date / Time venlafaxine Allergy Mild RASH Verified 12/31/22 23:45 Sulfa (Sulfonamide Allergy Unknown UNKNOWN Verified 12/31/22 23:45 Antibiotics) REACTION TO SULFA DRUGS tomato AdvReac Verified 12/31/22 23:45 Home Medications Medication Instructions Recorded Confirmed Type atorvastatin 40 mg tablet 40 mg PO QAM 03/04/19 12/31/22 History cholecalciferol (vitamin D3) 25 2,000 unit PO QAM 03/04/19 12/31/22 History mcg (1,000 unit) capsule (Vitamin D3) clobetasol 0.05 % shampoo 1 applic topical DIRECTED PRN 03/04/19 12/31/22 History for flare up of lupus docusate sodium 100 mg capsule 100 mg PO BID 03/04/19 12/31/22 History (Colace) hydroxychloroquine 200 mg tablet 200 mg PO HS 03/04/19 12/31/22 History (Plaquenil) lactobacillus combination no.4 3 3,000 mmu cells PO QAM 03/04/19 12/31/22 History billion cell capsule (Probiotic) polyethylene glycol 3350 8.5 gram 17 g PO QAM 03/04/19 12/31/22 History oral powder packet amlodipine 2.5 mg tablet 2.5 mg PO QPM 08/14/22 12/31/22 History levothyroxine 88 mcg tablet 88 mcg PO DAILYBB 08/14/22 12/31/22 History (Synthroid) lisinopril 2.5 mg tablet 2.5 mg PO DAILY 08/14/22 12/31/22 History metoprolol succinate 25 mg 25 mg PO DAILY 08/14/22 12/31/22 History tablet,extended release 24 hr aspirin 81 mg tablet,delayed 81 mg PO DAILY #1 tab 08/15/22 12/31/22 Rx release clobetasol 0.05 % topical cream 1 applic topical BID PRN .FLARES 12/31/22 0 12/31/22 History clopidogrel 75 mg tablet 75 mg PO DAILY 12/31/22 12/31/22 History cyclosporine 0.05 % eye drops in a 1 drp OPB Q12H 12/31/22 12/31/22 History dropperette denosumab 60 mg/mL subcutaneous 60 mg subcut Q6M 12/31/22 12/31/22 History syringe (Prolia) ferrous sulfate 325 mg (65 mg 325 mg PO QAM 12/31/22 12/31/22 History iron) tablet fluticasone propionate 50 2 spray intranasal DAILY 12/31/22 12/31/22 History mcg/actuation nasal spray,suspension furosemide 20 mg tablet 30 mg PO QAM 12/31/22 12/31/22 History loratadine 10 mg tablet 10 mg PO DAILY 12/31/22 12/31/22 History multivitamin 1 tab PO DAILY 12/31/22 12/31/22 History nitroglycerin 0.4 mg sublingual 0.4 mg sublingual .DAILY/PRN PRN 12/31/22 12/31/22 History tablet Chest Pain oxycodone-acetaminophen 5 mg-325 1 tab PO Q4H PRN Pain 12/31/22 12/31/22 History mg tablet tacrolimus 0.1 % topical ointment 1 applic topical BID 12/31/22 12/31/22 History zinc acetate 50 mg (zinc) capsule 50 mg PO QAM 12/31/22 12/31/22 History Past Med/Surg History Medical History CAD (coronary artery disease) Chronic back pain Coronary artery disease s/p 5 stents in 2017 Degenerative disc disease Diastolic heart failure EF 58%, follows with [facility] cardio GERD (gastroesophageal reflux disease) diet controlled History of blood transfusion "with every surgery" Hypertension controlled, stable per pt Hypoglycemia with associated syncope, last syncopal episode colonoscopy fasting 8 yrs ago Hypothyroidism Myocardial Infarction (~2016) follows with Dr Jean Baptiste On anticoagulant therapy Raynaud's disease SIADH (syndrome of inappropriate ADH production) 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 no longer sees a neurologist. Systemic lupus follows with [facility] Rheumatology Surgical History History of cardiac cath (~2017) at [facility] -5 stents-2017 History of cataract surgery bilateral History of colonoscopy History of esophagogastroduodenoscopy (EGD) History of heart artery stent (~2017) x5 stents (at [facility]) History of open reduction and internal fixation (ORIF) procedure right wrist History of tonsillectomy History of total hip arthroplasty left Hx of vaginal hysterectomy S/P lumbar fusion x2 Family History Other No family history of adverse response to anesthesia Social History Smoking Status: Former smoker Tobacco Type: Cigarettes Smoking End Date: 1993; Second Hand Exposure: No; Tobacco Cessation Education Requested by Patient: No Hx Alcohol Use: Yes Alcohol type: wine Hx Substance Use: No Preferred Language: Macedonian Communication Ability: Effective Visual Impairment: No Limitations Hearing Ability: Normal 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 does not have dentures w/ them at this time Review of Systems Review of Systems: As per HPI, all other systems reviewed and negative Physical Exam Physical Exam: GENERAL: Slightly uncomfortable, underweight, no respiratory distress SKIN: Normal color, warm HEENT: [place] palpebral conjunctivae, no ptosis, dry buccal mucosa NECK : Supple, no tenderness CHEST : Decreased breath sounds, no tenderness HEART : RRR, no obvious murmurs ABDOMEN: no distention, nontender EXTREMITIES : No LE swelling, left hip tenderness, no other conspicuous deformities noted NEUROLOGIC : Coherent, no facial asymmetry, mild hearing impairment, no other gross focality Results & Data Results & Data ([facility]) Vital Signs (Past 12 Hours) Vital Signs Temp Pulse Resp BP Pulse Ox O2 Del Method 01/01/23 00:50 57 L 12/31/22 21:30 65 14 100 12/31/22 21:30 147/90 H 12/31/22 21:00 65 14 100 12/31/22 21:00 158/92 H 12/31/22 20:48 69 15 92 12/31/22 20:50 69 12/31/22 20:46 36.6 C 67 20 182/93 H 98 Room Air Laboratory Results Laboratory Results WBC 4.36 K/ul (4.8-10.8) L 01/01/23 04:33 RBC 3.77 M/uL (4.20-5.40) L 01/01/23 04:33 Hgb 11.1 g/dl (12.0-16.0) L 01/01/23 04:33 Hct 31.5 % (37.0-47.0) L 01/01/23 04:33 MCV 83.6 fL (80.0-100.0) 01/01/23 04:33 MCH 29.4 pg (25.0-34.0) 01/01/23 04: MCHC 35.2 g/dL (32.0-36.0) 01/01/23 04:33 RDW Std Deviation 41.7 fL (36.4-46.3) 01/01/23 04: RDW Coeff of [place] 13.7 % (11.5-14.5) 01/01/23 04:33 Plt Count 212 K/uL (130-400) 01/01/23 04:33 MPV 9.4 fL (9.4-12.4) 01/01/23 04:33 Immature Gran % (Auto) 0.2 % 01/01/23 04:33 Neut % (Auto) 73.7 % 01/01/23 04:33 Lymph % (Auto) 13.3 % 01/01/23 04:33 [place] % (Auto) 12.6 % 01/01/23 04:33 Eos % (Auto) 0.0 % 01/01/23 04:33 Baso % (Auto) 0.2 % 01/01/23 04:33 Neut # (Auto) 3.21 K/uL (1.40-6.50) 01/01/23 04:33 Lymph # (Auto) 0.58 K/uL (1.2-3.4) L 01/01/23 04:33 [place] # (Auto) 0.55 K/uL (0.11-0.59) 01/01/23 04:33 Eos # (Auto) 0.00 K/uL (0-0.50) 01/01/23 04:33 Baso # (Auto) 0.01 K/uL (0-0.2) 01/01/23 04:33 Immature Gran # (Auto) 0.01 K/uL (0.01-0.20) 01/01/23 04:33 PT 11.7 Seconds (9.0-12.0) 12/31/22 20:53 INR 1.1 (0.9-1.1) 12/31/22 20:53 APTT 27.7 Seconds (21.0-31.0) 12/31/22 20:53 PTT Ratio 1.0 12/31/22 20:53 Sodium 128 mmol/L (136-145) L 01/01/23 04:33 Potassium 4.2 mmol/L (3.5-5.1) 01/01/23 04:33 Chloride 97 mmol/L (98-107) L 01/01/23 04:33 Carbon Dioxide 28 mmol/L (21-32) 01/01/23 04:33 Anion Gap 3 (3-11) 01/01/23 04:33 BUN 18 mg/dl (6-23) 01/01/23 04:33 Creatinine 0.65 mg/dl (0.6-1.2) 01/01/23 04:33 Est Cr Clr Drug Dosing 49.8 ml/min 01/01/23 04:33 Est GFR ( Amer) 100.7 ml/min 01/01/23 04:33 Est GFR (Non-Af Amer) 86.8 ml/min 01/01/23 04:33 BUN/Creatinine Ratio 27.7 (10-20) H 01/01/23 04:33 Glucose 79 mg/dl (70-99(Fasting)) 01/01/23 04:33 Osmolality 265 mOsm/kg (280-300) L 12/31/22 20:53 Calcium 8.3 mg/dl (8.5-10.1) L 01/01/23 04:33 Magnesium 2.2 mg/dl (1.7-2.4) 12/31/22 20:53 Total Bilirubin 0.4 mg/dl (0.2-1.0) 12/31/22 20:53 AST 41 U/L (13-39) H 12/31/22 20:53 ALT 18 U/L (7-52) 12/31/22 20:53 Alkaline Phosphatase 51 U/L (34-104) 12/31/22 20:53 Total Protein 7.4 gm/dl (6.0-8.3) 12/31/22 20:53 Albumin 4.3 gm/dl (3.4-5.0) 12/31/22 20:53 Globulin 3.1 gm/dl (2.5-4.0) 12/31/22 20:53 Albumin/Globulin Ratio 1.4 (0.9-2) 12/31/22 20:53 TSH 3.977 uIu/ml (0.300-4.500) 12/31/22 20:53 SARS-CoV-2, RNA, NAAT NEGATIVE (NEGATIVE) 12/31/22 22:27 Blood Type A Positive 01/01/23 04:33 Antibody Screen NEGATIVE 01/01/23 04:33 Diagnostic Findings Chest x-ray as per my interpretation no congestion Left hip x-ray as per my interpretation showed dislocated arthroplasty
[2023-01-01] MEDS ORDERED: SODIUM CHLORIDE 0.9% 1000ML 1,000 ML IV SCH (08:00)
[2023-01-01] MEDS ORDERED: D5W AND NSS 1,000 ML IV SCH (08:15)
--- NOTE | 2023-01-01 08:27 | XRay Report ---
XR chest 1V portable HISTORY: 77 years-old Female hyponatremia acute shortness of breath COMPARISON: 07/24/2022 TECHNIQUE: AP view of the chest FINDINGS: Cardiomediastinal and hilar silhouettes are within normal limits. Coronary arterial stent. No pneumot horax, pleural effusion, airspace consolidation or overt pulmonary edema. Degenerative changes of the shoulders and spine. Unchanged deformity of the distal left clavicle. Chronic appearing left-sided r ib fractures. IMPRESSION: No acute process. ACT 112: Negative or not required by law. The above report was generated using voice recognition software. It may contain grammatical, syntax o r spelling errors. Electronically signed by: Isaac Gaming M.D. 01/01/2023 8:26 AM
--- NOTE | 2023-01-01 08:31 | Cardiology Consultation ---
Date of Consultation January 01, 2023 Assessment & Plan (1) Preop cardiovascular exam: (2) Dislocated hip: (3) Diastolic heart failure: (4) CAD (coronary artery disease): (5) Hypertension: (6) SIADH (syndrome of inappropriate ADH production): (7) Systemic lupus: (8) Stroke: (9) History of blood transfusion: Plan Mrs. Gaona was counseled that given her cardiac history but we sent lack of cardiac symptoms that I would place her as a moderate risk for any adverse perioperative cardiovascular events with that risk being approximately less than 5%. She was further counseled that no further cardiac testing or invention would further lower that risk. She states that she understands, she is excepting of that risk and wishes to proceed. So I see no need to delay from a cardiac standpoint. Her Plavix has been held for the upcoming surgery but aspirin and metoprolol should be continued uninterrupted We will continue to follow History of Present Illness Reason for Consultation: Pre-op risk assessment Requesting Physician: KARLEY Attending Physician: Annetta Mares, History of Present Illness Mrs. Gaona is a very pleasant 77-year-old woman who routinely follows with Dr. Renae of our cardiology practice for history of coronary artery disease. She presented to [facility] on 12/31/2022 with complaints of hip pain. She states that she was simply standing and twisted her torso and she developed severe left hip pain. Upon arrival to the emergency department he was found that she had a left hip dislocation and she was admitted to telemetry. Recently, she denies any cardiac complaints of chest pain, shortness of breath, palpitations, lightheadedness, dizziness or syncope. She was last seen by Dr. Renae in July for preop risk assessment prior to going to spinal surgery. She states that she tolerated the spinal surgery well and then had subsequent breast surgery as well. This again, she tolerated well from a cardiac standpoint. Problem List from most recent outpatient cardiac visit: 1. Coronary heart disease, status post anterior ST segment elevation myocardial infarction on 07/12/2017with PCI, drug-eluting stent to the mid LAD with diffuse diagonal disease noted also for which ongoing medication management was recommended. 2. At the time for myocardial infarction, mild to moderate left ventricular systolic dysfunction was noted, with interval normalization of her ejection fraction 3 months post PCI to LAD 3. Hypertension 4. Dyslipidemia 5. History of past stroke and retinal artery occlusion 6. SIADH Allergies Allergy/AdvReac Type Severity Reaction Status Date / Time venlafaxine Allergy Mild RASH Verified 12/31/22 23:45 Sulfa (Sulfonamide Allergy Unknown UNKNOWN Verified 12/31/22 23:45 Antibiotics) REACTION TO SULFA DRUGS tomato AdvReac Verified 12/31/22 23:45 Home Medications Medication Instructions Recorded Confirmed Type atorvastatin 40 mg tablet 40 mg PO QAM 03/04/19 12/31/22 History cholecalciferol (vitamin D3) 25 2,000 unit PO QAM 03/04/19 12/31/22 History mcg (1,000 unit) capsule (Vitamin D3) clobetasol 0.05 % shampoo 1 applic topical DIRECTED PRN 03/04/19 12/31/22 History for flare up of lupus docusate sodium 100 mg capsule 100 mg PO BID 03/04/19 12/31/22 History (Colace) hydroxychloroquine 200 mg tablet 200 mg PO HS 03/04/19 12/31/22 History (Plaquenil) lactobacillus combination no.4 3 3,000 mmu cells PO QAM 03/04/19 12/31/22 History billion cell capsule (Probiotic) polyethylene glycol 3350 8.5 gram 17 g PO QAM 03/04/19 12/31/22 History oral powder packet amlodipine 2.5 mg tablet 2.5 mg PO QPM 08/14/22 12/31/22 History levothyroxine 88 mcg tablet 88 mcg PO DAILYBB 08/14/22 12/31/22 History (Synthroid) lisinopril 2.5 mg tablet 2.5 mg PO DAILY 08/14/22 12/31/22 History metoprolol succinate 25 mg 25 mg PO DAILY 08/14/22 12/31/22 History tablet,extended release 24 hr aspirin 81 mg tablet,delayed 81 mg PO DAILY #1 tab 08/15/22 12/31/22 Rx release clobetasol 0.05 % topical cream 1 applic topical BID PRN .FLARES 12/31/22 12/31/22 History clopidogrel 75 mg tablet 75 mg PO DAILY 12/31/22 12/31/22 History cyclosporine 0.05 % eye drops in a 1 drp OPB Q12H 12/31/22 12/31/22 History dropperette denosumab 60 mg/mL subcutaneous 60 mg subcut Q6M 12/31/22 12/31/22 History syringe (Prolia) ferrous sulfate 325 mg (65 mg 325 mg PO QAM 12/31/22 12/31/22 History iron) tablet fluticasone propionate 50 2 spray intranasal DAILY 12/31/22 12/31/22 History mcg/actuation nasal spray,suspension furosemide 20 mg tablet 30 mg PO QAM 12/31/22 12/31/22 History loratadine 10 mg tablet 10 mg PO DAILY 12/31/22 12/31/22 History multivitamin 1 tab PO DAILY 12/31/22 12/31/22 History nitroglycerin 0.4 mg sublingual 0.4 mg sublingual .DAILY/PRN PRN 12/31/22 12/31/22 History tablet Chest Pain oxycodone-acetaminophen 5 mg-325 1 tab PO Q4H PRN Pain 12/31/22 12/31/22 History mg tablet tacrolimus 0.1 % topical ointment 1 applic topical BID 12/31/22 12/31/22 History zinc acetate 50 mg (zinc) capsule 50 mg PO QAM 12/31/22 12/31/22 History Patient History Medical History CAD (coronary artery disease) Chronic back pain Coronary artery disease s/p 5 stents in 2017 Degenerative disc disease Diastolic heart failure EF 58%, follows with [facility] cardio GERD (gastroesophageal reflux disease) diet controlled History of blood transfusion "with every surgery" Hypertension controlled, stable per pt Hypoglycemia with associated syncope, last syncopal episode colonoscopy fasting 8 yrs ago Hypothyroidism Myocardial Infarction (~2016) follows with Dr Jean Baptiste On anticoagulant therapy Raynaud's disease SIADH (syndrome of inappropriate ADH production) 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 no longer sees a neurologist. Systemic lupus follows with [facility] Rheumatology Surgical History History of cardiac cath (~2016) at [facility] -5 stents-2017 History of cataract surgery bilateral History of colonoscopy History of esophagogastroduodenoscopy (EGD) History of heart artery stent (~2017) x5 stents (at [facility]) History of open reduction and internal fixation (ORIF) procedure right wrist History of tonsillectomy History of total hip arthroplasty left Hx of vaginal hysterectomy S/P lumbar fusion x2 Family History Other No family history of adverse response to anesthesia Social History Smoking Status: Former smoker Tobacco Type: Cigarettes Second Hand Exposure: No; Hx Alcohol Use: Yes Alcohol type: wine Hx Substance Use: No Preferred Language: Guyanese Communication Ability: Effective Visual Impairment: No Limitations Hearing Ability: Normal Call Center Analyst Required: No Beliefs That Will Affect Care: None marital status: Current Living Situation: Spouse current occupational status: retired Feels Safe at Home: Yes Assistive Devices: Cane, Denture - Upper, Denture - Lower, Glasses and Hearing Aid - Bilateral Review of Systems Review of Systems: All systems reviewed & are unremarkable except as noted in HPI & below Physical Exam Physical Exam: General: Awake, alert and oriented x 3. No acute distress. HEENT: Normocephalic, atraumatic. Pupils equal, round and reactive to light and accommodation. Extraocular muscles are intact. Anicteric sclera. Moist mucous membranes. Neck: No JVD. No bruit. Cardiovascular: Regular. Positive S-4. Normal S-1 and S-2. No S-3. No murmurs or rubs. Pulmonary: Clear to auscultation B/L. No rales, rhonchi or wheezing Abdomen: Bowel sounds x 4, soft. No rebound, guarding or tenderness. No organomegaly. Extremities: No clubbing, cyanosis or edema. +2 pedal pulses bilaterally. Skin: Warm and dry. Results & Data ([facility]) Vital Signs (Past 12 Hours) Vital Signs Temp Pulse Pulse Resp BP BP Pulse Ox 01/01/23 07:31 36.9 C 83 15 144/75 H 94 01/01/23 02:07 61 01/01/23 04:00 36.3 C L 56 L 18 138/77 100 01/01/23 01:34 01/01/23 00:50 57 L 12/31/22 21:30 65 14 100 12/31/22 21:30 147/90 H 12/31/22 21:00 65 14 100 12/31/22 21:00 158/92 H 12/31/22 20:48 69 15 92 12/31/22 20:50 69 12/31/22 20:46 36.6 C 67 20 182/93 H 98 O2 Del Method 01/01/23 07:31 Room Air 01/01/23 02:07 01/01/23 04:00 Room Air 01/01/23 01:34 Room Air 01/01/23 00:50 12/31/22 21:30 12/31/22 21:30 12/31/22 21:00 12/31/22 21:00 12/31/22 20:48 12/31/22 20:50 12/31/22 20:46 Room Air
--- NOTE | 2023-01-01 08:39 | XRay Report ---
XR hip LT min 2V HISTORY: 77 years-old Female injury, shortening rotation acute pain of the left hip status post tr auma COMPARISON: pelvis radiograph 03/04/2019 TECHNIQUE: 2 views of the left hip FINDINGS: Total joint arthroplasty. No acute fracture identified. Anterior superior dislocation of the femoral head prosthesis. Unremarkable soft tissues. Arterial calcifications. IMPRESSION: Dislocated left hip total joint arthroplasty. ACT 112: Negative or not required by law. The above report was generated using voice recognition software. It may contain grammatical, syntax o r spelling errors. Electronically signed by: Isaac Gaming M.D. 01/01/2023 8:38 AM
[2023-01-01] MEDS: FERROUS SULFATE 325 MG TAB PO SCH (08:46)
[2023-01-01] MEDS: METOPROLOL SUCC 25MG EXT REL TAB PO SCH (08:46)
[2023-01-01] MEDS: CHOLECALCIFEROL 1,000 UNITS 25 MCG TAB PO SCH (08:46)
[2023-01-01] MEDS: MULTIVITAMIN TAB PO SCH (08:46)
[2023-01-01] MEDS: ADVANCED PROBIOTIC 1250 MG CAPSULE PO SCH (08:47)
[2023-01-01] MEDS: DOCUSATE SODIUM 100 MG CAP PO SCH ×2 (08:47→21:59)
[2023-01-01] MEDS: lisinopril 2.5 MG TAB PO SCH (08:47)
[2023-01-01] MEDS: FLUTICASONE PROPIONATE NA SPR 16 GM BTL SCH (08:47)
[2023-01-01] MEDS: ATORVASTATIN 40 MG TAB PO SCH (08:47)
[2023-01-01] MEDS: LORATADINE 10 MG TAB PO SCH (08:48)
[2023-01-01] MEDS: POLYETHYLENE (MIRALAX) 17 GM PACK PO SCH (08:48)
--- NOTE | 2023-01-01 09:31 | Anesthesiology Consultation ---
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 Surgery Operation Date: 01/01/23 10:30 Proposed Procedures p Closed Reduction Dislocated Left CHARY - Mateo Morgan DO Height/Weight Height: 5 ft 2 in Weight: 43.4 kg Allergies Allergy/AdvReac Type Severity Reaction Status Date / Time venlafaxine Allergy Mild RASH Verified 12/31/22 23:45 Sulfa (Sulfonamide Allergy Unknown UNKNOWN Verified 12/31/22 23:45 Antibiotics) REACTION TO SULFA DRUGS tomato AdvReac Verified 12/31/22 23:45 Medications Home Medications Medication Instructions Recorded Confirmed Last Taken atorvastatin 40 mg tablet 40 mg PO QAM 03/04/19 12/31/22 08/12/22 07:30 cholecalciferol (vitamin D3) 25 2,000 unit PO QAM 03/04/19 12/31/22 08/12/22 07:30 mcg (1,000 unit) capsule (Vitamin D3) clobetasol 0.05 % shampoo 1 applic topical DIRECTED PRN 03/04/19 12/31/22 Unknown for flare up of lupus docusate sodium 100 mg capsule 100 mg PO BID 03/04/19 12/31/22 08/12/22 07:30 (Colace) hydroxychloroquine 200 mg tablet 200 mg PO HS 03/04/19 12/31/22 08/12/22 20:30 (Plaquenil) lactobacillus combination no.4 3 3,000 mmu cells PO QAM 03/04/19 12/31/22 08/12/22 07:30 billion cell capsule (Probiotic) polyethylene glycol 3350 8.5 gram 17 g PO QAM 03/04/19 12/31/22 08/12/22 20:30 oral powder packet amlodipine 2.5 mg tablet 2.5 mg PO QPM 08/14/22 12/31/22 Unknown levothyroxine 88 mcg tablet 88 mcg PO DAILYBB 08/14/22 12/31/22 Unknown (Synthroid) lisinopril 2.5 mg tablet 2.5 mg PO DAILY 08/14/22 12/31/22 Unknown metoprolol succinate 25 mg 25 mg PO DAILY 08/14/22 12/31/22 Unknown tablet,extended release 24 hr aspirin 81 mg tablet,delayed 81 mg PO DAILY #1 tab 08/15/22 12/31/22 Unknown release clobetasol 0.05 % topical cream 1 applic topical BID PRN .FLARES 12/31/22 12/31/22 Unknown clopidogrel 75 mg tablet 75 mg PO DAILY 12/31/22 12/31/22 Unknown cyclosporine 0.05 % eye drops in a 1 drp OPB Q12H 12/31/22 12/31/22 Unknown dropperette denosumab 60 mg/mL subcutaneous 60 mg subcut Q6M 12/31/22 12/31/22 Unknown syringe (Prolia) ferrous sulfate 325 mg (65 mg 325 mg PO QAM 12/31/22 12/31/22 Unknown iron) tablet fluticasone propionate 50 2 spray intranasal DAILY 12/31/22 12/31/22 Unknown mcg/actuation nasal spray,suspension furosemide 20 mg tablet 30 mg PO QAM 12/31/22 12/31/22 Unknown loratadine 10 mg tablet 10 mg PO DAILY 12/31/22 12/31/22 Unknown multivitamin 1 tab PO DAILY 12/31/22 12/31/22 Unknown nitroglycerin 0.4 mg sublingual 0.4 mg sublingual .DAILY/PRN PRN 12/31/22 12/31/22 Unknown tablet Chest Pain oxycodone-acetaminophen 5 mg-325 1 tab PO Q4H PRN Pain 12/31/22 12/31/22 Unknown mg tablet tacrolimus 0.1 % topical ointment 1 applic topical BID 12/31/22 12/31/22 Unknown zinc acetate 50 mg (zinc) capsule 50 mg PO QAM 12/31/22 12/31/22 Unknown Active Medications Generic Name Dose Route Start Last Admin Trade Name Freq PRN Reason Stop Dose Admin Atorvastatin Calcium 40 mg 01/01/23 09:00 01/01/23 08:47 Atorvastatin 40 Mg Tab PO 01/31/23 08:59 40 mg QAM KIRSTEN Administration Docusate Sodium 100 mg 01/01/23 09:00 01/01/23 08:47 Docusate Sodium 100 Mg Cap PO 01/31/23 08:59 100 mg BID KIRSTEN Administration Ferrous Sulfate 325 mg 01/01/23 09:00 01/01/23 08:46 Ferrous Sulfate 325 Mg Tab PO 01/31/23 08:59 325 mg QAM KIRSTEN Administration Fluticasone Propionate 2 sprays 01/01/23 09:00 01/01/23 08:47 Fluticasone Propionate Na Spr 16 Gm Btl NA 01/31/23 08:59 2 sprays DAILY KIRSTEN Administration Dextrose/Sodium Chloride 1,000 mls @ 40 mls/hr 01/01/23 08:15 01/01/23 08:44 D5w And Nss IV 01/31/23 08:14 40 mls/hr .Q24H KIRSTEN Administration Lactobacillus Acidophilus 2 cap 01/01/23 09:00 01/01/23 08:47 Advanced Probiotic 1250 Mg Capsule PO 01/31/23 08:59 2 cap QAM KIRSTEN Administration Levothyroxine Sodium 88 mcg 01/01/23 06:30 01/01/23 05:38 Levothyroxine Sodium 88 Mcg Tablet PO 01/31/23 06:29 88 mcg DAILYBB KIRSTEN Administration Lisinopril 2.5 mg 01/01/23 09:00 01/01/23 08:47 Lisinopril 2.5 Mg Tab PO 01/31/23 08:59 2.5 mg DAILY KIRSTEN Administration Loratadine 10 mg 01/01/23 09:00 01/01/23 08:48 Loratadine 10 Mg Tab PO 01/31/23 08:59 10 mg DAILY KIRSTEN Administration Metoprolol Succinate 25 mg 01/01/23 09:00 01/01/23 08:46 Metoprolol Succ 25mg Ext Rel Tab PO 01/31/23 08:59 25 mg DAILY KIRSTEN Administration Miscellaneous 1 each 01/01/23 08:00 01/01/23 08:43 Cyclosporine [Restasis]: Order Awaiting Action N/A 01/31/23 07:59 Not Given QS KIRSTEN Morphine Sulfate 2 mg 01/01/23 01:09 01/01/23 01:55 Morphine Sulfate 2 Mg/Ml Carp IV 01/15/23 01:08 2 mg Q3H PRN Administration Pain Multivitamins 1 tab 01/01/23 09:00 01/01/23 08:46 Multivitamin Tab PO 01/31/23 08:59 1 tab DAILY KIRSTEN Administration Polyethylene Glycol 17 gm 01/01/23 09:00 01/01/23 08:48 Polyethylene (Miralax) 17 Gm Pack PO 01/31/23 08:59 Not Given QAM KIRSTEN Vitamin D 2,000 units 01/01/23 09:00 01/01/23 08:46 Cholecalciferol 1,000 Units 25 Mcg Tab PO 01/31/23 08:59 2,000 units QAM KIRSTEN Administration NPO Date Last Intake of Fluids: 12/31/22 Past Medical History Medical History CAD (coronary artery disease) Chronic back pain Coronary artery disease s/p 5 stents in 2017 Degenerative disc disease Diastolic heart failure EF 58%, follows with [facility] cardio GERD (gastroesophageal reflux disease) diet controlled History of blood transfusion "with every surgery" Hypertension controlled, stable per pt Hypoglycemia with associated syncope, last syncopal episode colonoscopy fasting 8 yrs ago Hypothyroidism Myocardial Infarction (~2016) follows with Dr Jean Baptiste On anticoagulant therapy Raynaud's disease SIADH (syndrome of inappropriate ADH production) 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 no longer sees a neurologist. Systemic lupus follows with [facility] Rheumatology Past Family History Family History Other No family history of adverse response to anesthesia Past Surgical History Surgical History History of cardiac cath (~2016) at [facility] [place] -5 stents-2017 History of cataract surgery bilateral History of colonoscopy History of esophagogastroduodenoscopy (EGD) History of heart artery stent (~2016) x5 stents (at [facility] [place]) History of open reduction and internal fixation (ORIF) procedure right wrist History of tonsillectomy History of total hip arthroplasty left Hx of vaginal hysterectomy S/P lumbar fusion x2 Social History Smoking Status: Former smoker tobacco type: cigarettes Smoking End Date: 1993 Hx Alcohol Use: Yes Alcohol type: wine alcohol intake frequency: a few times a month Hx Substance Use: No substance use type: does not use Physical Exam Vital Signs Last Vital Signs Temp 98.4 F 01/01/23 07:31 Pulse 83 01/01/23 07:31 Resp 15 01/01/23 07:31 BP 144/75 H 01/01/23 07:31 Pulse Ox 94 01/01/23 07:31 O2 Del Method Room Air 01/01/23 07:31 Testing Laboratory Results 01/01/23 04:33 01/01/23 04:33 PT 11.7 Seconds (9.0-12.0) 12/31/22 20:53 INR 1.1 (0.9-1.1) 12/31/22 20:53 APTT 27.7 Seconds (21.0-31.0) 12/31/22 20:53 Blood Type A Positive 01/01/23 04:33 Antibody Screen NEGATIVE 01/01/23 04:33 Electrocardiogram Date: 07/24/22 Findings: + NSR @ (70 bpm)
[2023-01-01] MEDS: ASPIRIN 81 MG ECTAB PO SCH (10:00)
--- NOTE | 2023-01-01 10:28 | Orthopedic Consultation ---
Date of Consultation January 01, 2023 Assessment & Plan (1) Dislocated hip: Left CHARY dislocation. Cardiology consult has been placed. They feel there is no reason to hold her pending surgery at this time. No further cardiological studies would be needed at this time. We will plan for close reduction of her left CHARY today. History of Present Illness Reason for Consultation: Left CHARY dislocation Attending Physician: Annetta Mares DO History of Present Illness 77-year-old female with history of left total hip arthroplasty performed approximately 12 years ago. She has not had any problems with her hip replacement and was in her usual state of health. She states that she was in her kitchen yesterday evening. She had both feet firmly planted and ended up rotating her torso without moving her feet. She states she did really hard and ended up falling to the floor. She had pain prior to the fall and states that she did not feel a pop. She was unable to ambulate and had moderate to severe pain in the left hip. She was brought to the emergency room where she was seen by the staff. X-rays were taken and was found that she had a dislocation of her left CHARY. Patient was also noted to be hyponatremic which she has a history of however sodium level is 124. It was felt that any plans to put her under anesthesia should be held until there was some mild increase in her sodium. We have been asked to see her for her left total hip dislocation. Currently she is awake and alert. She is hard of hearing but unable to communicate with her well and discussed the plans that we have. She is in no acute distress at this time. Allergies Allergy/AdvReac Type Severity Reaction Status Date / Time venlafaxine Allergy Mild RASH Verified 12/31/22 23:45 Sulfa (Sulfonamide Allergy Unknown UNKNOWN Verified 12/31/22 23:45 Antibiotics) REACTION TO SULFA DRUGS tomato AdvReac Verified 12/31/22 23:45 Home Medications Medication Instructions Recorded Confirmed Type atorvastatin 40 mg tablet 40 mg PO QAM 03/04/19 12/31/22 History cholecalciferol (vitamin D3) 25 2,000 unit PO QAM 03/04/19 12/31/22 History mcg (1,000 unit) capsule (Vitamin D3) clobetasol 0.05 % shampoo 1 applic topical DIRECTED PRN 03/04/19 12/31/22 History for flare up of lupus docusate sodium 100 mg capsule 100 mg PO BID 03/04/19 12/31/22 History (Colace) hydroxychloroquine 200 mg tablet 200 mg PO HS 03/04/19 12/31/22 History (Plaquenil) lactobacillus combination no.4 3 3,000 mmu cells PO QAM 03/04/19 12/31/22 History billion cell capsule (Probiotic) polyethylene glycol 3350 8.5 gram 17 g PO QAM 03/04/19 12/31/22 History oral powder packet amlodipine 2.5 mg tablet 2.5 mg PO QPM 08/14/22 12/31/22 History levothyroxine 88 mcg tablet 88 mcg PO DAILYBB 08/14/22 12/31/22 History (Synthroid) lisinopril 2.5 mg tablet 2.5 mg PO DAILY 08/14/22 12/31/22 History metoprolol succinate 25 mg 25 mg PO DAILY 08/14/22 12/31/22 History tablet,extended release 24 hr aspirin 81 mg tablet,delayed 81 mg PO DAILY #1 tab 08/15/22 12/31/22 Rx release clobetasol 0.05 % topical cream 1 applic topical BID PRN .FLARES 12/31/22 0 12/31/22 History clopidogrel 75 mg tablet 75 mg PO DAILY 12/31/22 12/31/22 History cyclosporine 0.05 % eye drops in a 1 drp OPB Q12H 12/31/22 12/31/22 History dropperette denosumab 60 mg/mL subcutaneous 60 mg subcut Q6M 12/31/22 12/31/22 History syringe (Prolia) ferrous sulfate 325 mg (65 mg 325 mg PO QAM 12/31/22 12/31/22 History iron) tablet fluticasone propionate 50 2 spray intranasal DAILY 12/31/22 12/31/22 History mcg/actuation nasal spray,suspension furosemide 20 mg tablet 30 mg PO QAM 12/31/22 12/31/22 History loratadine 10 mg tablet 10 mg PO DAILY 12/31/22 12/31/22 History multivitamin 1 tab PO DAILY 12/31/22 12/31/22 History nitroglycerin 0.4 mg sublingual 0.4 mg sublingual .DAILY/PRN PRN 12/31/22 12/31/22 History tablet Chest Pain oxycodone-acetaminophen 5 mg-325 1 tab PO Q4H PRN Pain 12/31/22 12/31/22 History mg tablet tacrolimus 0.1 % topical ointment 1 applic topical BID 12/31/22 12/31/22 History zinc acetate 50 mg (zinc) capsule 50 mg PO QAM 12/31/22 12/31/22 History Patient History Medical History CAD (coronary artery disease) Chronic back pain Coronary artery disease s/p 5 stents in 2017 Degenerative disc disease Diastolic heart failure EF 58%, follows with [facility] cardio GERD (gastroesophageal reflux disease) diet controlled History of blood transfusion "with every surgery" Hypertension controlled, stable per pt Hypoglycemia with associated syncope, last syncopal episode colonoscopy fasting 8 yrs ago Hypothyroidism Myocardial Infarction (~2016) follows with Dr Jean Baptiste On anticoagulant therapy Raynaud's disease SIADH (syndrome of inappropriate ADH production) 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 no longer sees a neurologist. Systemic lupus follows with [facility] Rheumatology Surgical History History of cardiac cath (~2017) at [facility] -5 stents-2017 History of cataract surgery bilateral History of colonoscopy History of esophagogastroduodenoscopy (EGD) History of heart artery stent (~2016) x5 stents (at [facility]) History of open reduction and internal fixation (ORIF) procedure right wrist History of tonsillectomy History of total hip arthroplasty left Hx of vaginal hysterectomy S/P lumbar fusion x2 Family History Other No family history of adverse response to anesthesia Social History Smoking Status: Former smoker Tobacco Type: Cigarettes Smoking End Date: 1993; Second Hand Exposure: No; Tobacco Cessation Education Requested by Patient: No Hx Alcohol Use: Yes Alcohol type: wine Hx Substance Use: No Preferred Language: Thai Communication Ability: Effective Visual Impairment: No Limitations Hearing Ability: Normal Umbrella Tipper Machine Required: No Beliefs That Will Affect Care: None marital status: Current Living Situation: Spouse current occupational status: retired Feels Safe at Home: Yes Safety Concerns: Feels Safe At This Time Assistive Devices: Hearing Aid - Bilateral Assistive Devices Comment: Pt. does not have dentures w/ them at this time Physical Exam Physical Exam: On examination, the patient is a 77-year-old thin white female who is in no acute distress, pleasant and cooperative. She is alert and oriented x3. On examination of her left lower extremity, it is shortened and externally rotated compared to the right. She has no pain in her left knee or left ankle. She is moving her left ankle and toes well. She does have numbness in her left foot secondary to low back surgery in the past. No attempts were made to do any left hip or knee range of motion secondary to dislocation of left CHARY. Right lower extremity is unaffected at this time and is nontender at the hip, knee, ankle. Upper extremities are unaffected as well and are nontender at the shoulders, elbows, and wrist. Other than her noted neuropathy, there is no gross motor loss at all at this time. There is no other sensory deficit noted. Results & Data ([facility]) Vital Signs (Past 12 Hours) Vital Signs Temp Pulse Pulse Resp BP Pulse Ox O2 Del Method 01/01/23 07:31 36.9 C 83 15 144/75 H 94 Room Air 01/01/23 02:07 61 01/01/23 04:00 36.3 C L 56 L 18 138/77 100 Room Air 01/01/23 01:34 Room Air 01/01/23 00:50 57 L Laboratory Results Laboratory Results WBC 4.36 K/ul (4.8-10.8) L 01/01/23 04:33 RBC 3.77 M/uL (4.20-5.40) L 01/01/23 04:33 Hgb 11.1 g/dl (12.0-16.0) L 01/01/23 04:33 Hct 31.5 % (37.0-47.0) L 01/01/23 04:33 MCV 83.6 fL (80.0-100.0) 01/01/23 04:33 MCH 29.4 pg (25.0-34.0) 01/01/23 04:33 MCHC 35.2 g/dL (32.0-36.0) 01/01/23 04:33 RDW Std Deviation 41.7 fL (36.4-46.3) 01/01/23 04:33 RDW Coeff of [place] 13.7 % (11.5-14.5) 01/01/23 04:33 Plt Count 212 K/uL (130-400) 01/01/23 04:33 MPV 9.4 fL (9.4-12.4) 01/01/23 04:33 Immature Gran % (Auto) 0.2 % 01/01/23 04:33 Neut % (Auto) 73.7 % 01/01/23 04:33 Lymph % (Auto) 13.3 % 01/01/23 04:33 [place] % (Auto) 12.6 % 01/01/23 04:33 Eos % (Auto) 0.0 % 01/01/23 04:33 Baso % (Auto) 0.2 % 01/01/23 04:33 Neut # (Auto) 3.21 K/uL (1.40-6.50) 01/01/23 04:33 Lymph # (Auto) 0.58 K/uL (1.2-3.4) L 01/01/23 04:33 [place] # (Auto) 0.55 K/uL (0.11-0.59) 01/01/23 04:33 Eos # (Auto) 0.00 K/uL (0-0.50) 01/01/23 04:33 Baso # (Auto) 0.01 K/uL (0-0.2) 01/01/23 04:33 Immature Gran # (Auto) 0.01 K/uL (0.01-0.20) 01/01/23 04:33 PT 11.7 Seconds (9.0-12.0) 12/31/22 20:53 INR 1.1 (0.9-1.1) 12/31/22 20:53 APTT 27.7 Seconds (21.0-31.0) 12/31/22 20:53 PTT Ratio 1.0 12/31/22 20:53 Sodium 128 mmol/L (136-145) L 01/01/23 04:33 Potassium 4.2 mmol/L (3.5-5.1) 01/01/23 04:33 Chloride 97 mmol/L (98-107) L 01/01/23 04:33 Carbon Dioxide 28 mmol/L (21-32) 01/01/23 04:33 Anion Gap 3 (3-11) 01/01/23 04:33 BUN 18 mg/dl (6-23) 01/01/23 04:33 Creatinine 0.65 mg/dl (0.6-1.2) 01/01/23 04:33 Est Cr Clr Drug Dosing 49.8 ml/min 01/01/23 04:33 Est GFR ( Amer) 100.7 ml/min 01/01/23 04:33 Est GFR (Non-Af Amer) 86.8 ml/min 01/01/23 04:33 BUN/Creatinine Ratio 27.7 (10-20) H 01/01/23 04:33 Glucose 79 mg/dl (70-99(Fasting)) 01/01/23 04:33 Osmolality 265 mOsm/kg (280-300) L 12/31/22 20:53 Calcium 8.3 mg/dl (8.5-10.1) L 01/01/23 04:33 Magnesium 2.2 mg/dl (1.7-2.4) 12/31/22 20:53 Total Bilirubin 0.4 mg/dl (0.2-1.0) 12/31/22 20:53 AST 41 U/L (13-39) H 12/31/22 20:53 ALT 18 U/L (7-52) 12/31/22 20:53 Alkaline Phosphatase 51 U/L (34-104) 12/31/22 20:53 Total Protein 7.4 gm/dl (6.0-8.3) 12/31/22 20:53 Albumin 4.3 gm/dl (3.4-5.0) 12/31/22 20:53 Globulin 3.1 gm/dl (2.5-4.0) 12/31/22 20:53 Albumin/Globulin Ratio 1.4 (0.9-2) 12/31/22 20:53 TSH 3.977 uIu/ml (0.300-4.500) 12/31/22 20:53 SARS-CoV-2, RNA, NAAT NEGATIVE (NEGATIVE) 12/31/22 22:27 Blood Type A Positive 01/01/23 04:33 Antibody Screen NEGATIVE 01/01/23 04:33 Impressions Hip X-Ray 12/31/22 20:59 XR hip LT min 2V HISTORY: 77 years-old Female injury, shortening rotation acute pain of the left hip status post trauma COMPARISON: pelvis radiograph 03/04/2019 TECHNIQUE: 2 views of the left hip FINDINGS: Total joint arthroplasty. No acute fracture identified. Anterior superior dislocation of the femoral head prosthesis. Unremarkable soft tissues. Arterial calcifications. IMPRESSION: Dislocated left hip total joint arthroplasty. ACT 112: Negative or not required by law. The above report was generated using voice recognition software. It may contain grammatical, syntax or spelling errors. Electronically signed by: Isaac Gaming M.D. 01/01/2023 8:38 AM Chest X-Ray 12/31/22 22:10 XR chest 1V portable HISTORY: 77 years-old Female hyponatremia acute shortness of breath COMPARISON: 07/24/2022 TECHNIQUE: AP view of the chest FINDINGS: Cardiomediastinal and hilar silhouettes are within normal limits. Coronary arterial stent. No pneumothorax, pleural effusion, airspace consolidation or overt pulmonary edema. Degenerative changes of the shoulders and spine. Unchanged deformity of the distal left clavicle. Chronic appearing left-sided rib fractures. IMPRESSION: No acute process. ACT 112: Negative or not required by law. The above report was generated using voice recognition software. It may contain grammatical, syntax or spelling errors. Electronically signed by: Isaac Gaming M.D. 01/01/2023 8:26 AM
[2023-01-01 11:13] LABS: BUN Creatinine Ratio 24.2 (10-20); Calcium 8.6 mg/dl (8.5-10.1); Creatinine Clr Calc Pharmacy 50.5 ml/min; Est GFR (African American) 100.2 ml/min; Est GFR (Non-African American) 86.4 ml/min; Potassium 4.3 mmol/L (3.5-5.1)
--- NOTE | 2023-01-01 12:38 | Hospitalist Progress Note ---
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 Pt states to drinking more free water recently. She reports that "I did too much because my doctor said I needed to drink more water." IVF improved her from 124 to 130, IVF were stopped. Trend BMP (3) Hypothyroidism: Plan: chronic, stable. Cont synthroid per home regimen. (4) Hypertension: Plan: chronic, stable. Cont current therapy. (5) Diastolic heart failure: Plan: chronic, stable. Cont current therapy. (6) Systemic lupus: Plan: chronic, stable. Cont Plaquenil peer home regimen. (7) CAD (coronary artery disease): Plan: chronic, stable. Cont current medical management DVT proph:SCDs, chemoprophylaxis per ortho Full Code Dispo-pending PT/OT evaluations and clinical recovery. Annetta Mares DO [facility] Hospitalist Admission and Anticipated Discharge Date Admission Date: January 01, 2023 Subjective 77 yo F with L hip dislocation. She reports standing in her kitchen and turning the wrong way with an acute dislocation of her hip and pain She is s/p closed reduction this afternoon. She is doing well since the surgery and reports pain is controlled. denies CP or other issues. Review of Systems Review of Systems: All systems were reviewed and negative except as indicated on subjective above. Physical Exam Physical Exam: CONSTITUTIONAL: WNWD, vitals as above, generally well-appearing, NAD EYES: normal conjunctivae, no scleral icterus ENT: external ear and nose normal, MMM NECK: trachea midline RESPIRATORY: clear to auscultation bilaterally, no crackles, rales or wheezes, normal respiratory effort CARDIOVASCULAR: regular rate and rhythm, S1 and 2 heard without murmurs, gallops or rubs, no JVD, no peripheral edema CHEST: inspection of chest was normal GASTROINTESTINAL: soft, nontender, ND, no guarding MUSCULOSKELETAL: strength 5/5 throughout, head is normocephalic and atraumatic SKIN: warm and dry NEUROLOGIC: CN 2-12 grossly intact, no sensory deficit, normal cognition, normal speech, no tremor PSYCHIATRIC: alert cooperative and oriented to person, place and time. Euthymic mood, makes good eye contact, language grossly intact, recent and remote memory grossly intact. Results & Data Results & Data ([facility]) Vital Signs (Past 12 Hours) Vital Signs Temp Pulse Pulse Resp BP Pulse Ox O2 Del Method 01/01/23 11:07 36.4 C L 58 L 15 125/86 99 Room Air 01/01/23 07:31 36.9 C 83 15 144/75 H 94 Room Air 01/01/23 02:07 61 01/01/23 04:00 36.3 C L 56 L 18 138/77 100 Room Air 01/01/23 01:34 Room Air 01/01/23 00:50 57 L Laboratory Results Short CBC 12/31/22 01/01/23 Range/Units 20:53 04:33 WBC 3.00 L 4.36 L (4.8-10.8) K/ul Hgb 13.0 11.1 L (12.0-16.0) g/dl Hct 36.9 L 31.5 L (37.0-47.0) % Plt Count 263 212 (130-400) K/uL BMP 12/31/22 01/01/23 01/01/23 20:53 04:33 09:53 Sodium 124 L 128 L 130 L Potassium 4.6 4.2 4.3 Chloride 90 L 97 L 97 L Carbon Dioxide 27 28 30 BUN 20 18 16 Creatinine 0.73 0.65 0.66 Glucose 96 79 87 Calcium 9.3 8.3 L 8.6 Liver Function 12/31/22 Range/Units 20:53 Total Bilirubin 0.4 (0.2-1.0) mg/dl AST 41 H (13-39) U/L ALT 18 (7-52) U/L Alkaline Phosphatase 51 (34-104) U/L Albumin 4.3 (3.4-5.0) gm/dl Diagnostic Findings Hip X-Ray 12/31/22 20:59 XR hip LT min 2V HISTORY: 77 years-old Female injury, shortening rotation acute pain of the left hip status post trauma COMPARISON: pelvis radiograph 03/04/2019 TECHNIQUE: 2 views of the left hip FINDINGS: Total joint arthroplasty. No acute fracture identified. Anterior superior dislocation of the femoral head prosthesis. Unremarkable soft tissues. Arterial calcifications. IMPRESSION: Dislocated left hip total joint arthroplasty. ACT 112: Negative or not required by law. The above report was generated using voice recognition software. It may contain grammatical, syntax or spelling errors. Electronically signed by: Isaac Gaming M.D. 01/01/2023 8:38 AM Chest X-Ray 12/31/22 22:10 XR chest 1V portable HISTORY: 77 years-old Female hyponatremia acute shortness of breath COMPARISON: 07/24/2022 TECHNIQUE: AP view of the chest FINDINGS: Cardiomediastinal and hilar silhouettes are within normal limits. Coronary arterial stent. No pneumothorax, pleural effusion, airspace consolidation or overt pulmonary edema. Degenerative changes of the shoulders and spine. Unchanged deformity of the distal left clavicle. Chronic appearing left-sided rib fractures. IMPRESSION: No acute process. ACT 112: Negative or not required by law. The above report was generated using voice recognition software. It may contain grammatical, syntax or spelling errors. Electronically signed by: Isaac Gaming M.D. 01/01/2023 8:26 AM Medications Administered Current Inpatient Medications Acetaminophen (Acetaminophen 325 Mg Tab) 650 mg PO Q6H PRN PRN Reason: Fever/pain Stop: 01/31/23 00:20 Amlodipine Besylate (Amlodipine Besylate 5 Mg Tab) 2.5 mg PO QPM KIRSTEN Stop: 01/31/23 20:59 Aspirin (Aspirin 81 Mg Ectab) 81 mg PO DAILY KIRSTEN Stop: 01/31/23 08:59 Last Admin: 01/01/23 10:00 Dose: 81 mg Atorvastatin Calcium (Atorvastatin 40 Mg Tab) 40 mg PO QAM KIRSTEN Stop: 01/31/23 08:59 Last Admin: 01/01/23 08:47 Dose: 40 mg Docusate Sodium (Docusate Sodium 100 Mg Cap) 100 mg PO BID KIRSTEN Stop: 01/31/23 08:59 Last Admin: 01/01/23 08:47 Dose: 100 mg Ferrous Sulfate (Ferrous Sulfate 325 Mg Tab) 325 mg PO QAM KIRSTEN Stop: 01/31/23 08:59 Last Admin: 01/01/23 08:46 Dose: 325 mg Fluticasone Propionate (Fluticasone Propionate Na Spr 16 Gm Btl) 2 sprays NA DAILY KIRSTEN Stop: 01/31/23 08:59 Last Admin: 01/01/23 08:47 Dose: 2 sprays Hydroxychloroquine Sulfate (Hydroxychloroquine Sulfate 200 Mg Tab) 200 mg PO HS [facility] Stop: 01/31/23 20:59 Promethazine HCl 6.25 mg/ (Sodium Chloride) 50.25 mls @ 201 mls/hr IV Q6H PRN PRN Reason: Nausea And Vomiting Stop: 01/31/23 01:08 Lactobacillus Acidophilus (Advanced Probiotic 1250 Mg Capsule) 2 cap PO QAM [facility] Stop: 01/31/23 08:59 Last Admin: 01/01/23 08:47 Dose: 2 cap Levothyroxine Sodium (Levothyroxine Sodium 88 Mcg Tablet) 88 mcg PO DAILYBB [facility] Stop: 01/31/23 06:29 Last Admin: 01/01/23 05:38 Dose: 88 mcg Lisinopril (Lisinopril 2.5 Mg Tab) 2.5 mg PO DAILY [facility] Stop: 01/31/23 08:59 Last Admin: 01/01/23 08:47 Dose: 2.5 mg Loratadine (Loratadine 10 Mg Tab) 10 mg PO DAILY [facility] Stop: 01/31/23 08:59 Last Admin: 01/01/23 08:48 Dose: 10 mg Metoprolol Succinate (Metoprolol Succ 25mg Ext Rel Tab) 25 mg PO DAILY [facility] Stop: 01/31/23 08:59 Last Admin: 01/01/23 08:46 Dose: 25 mg Miscellaneous (Cyclosporine [Restasis]: Order Awaiting Action) 1 each N/A QS [facility] Stop: 01/31/23 07:59 Last Admin: 01/01/23 08:43 Dose: Not Given Morphine Sulfate (Morphine Sulfate 2 Mg/Ml Carp) 2 mg IV Q3H PRN PRN Reason: Pain Stop: 01/15/23 01:08 Last Admin: 01/01/23 10:37 Dose: 2 mg Multivitamins (Multivitamin Tab) 1 tab PO DAILY [facility] Stop: 01/31/23 08:59 Last Admin: 01/01/23 08:46 Dose: 1 tab Nitroglycerin (Nitroglycerin Sl 0.4 Mg/Tab Tab) 0.4 mg SL UD PRN PRN Reason: Chest Pain Stop: 01/31/23 01:46 Oxycodone HCl (Oxycodone Hcl Ir 5 Mg Tab (Immediate Release)) 5 mg PO Q4H PRN PRN Reason: Pain Stop: 01/15/23 00:20 Polyethylene Glycol (Polyethylene (Miralax) 17 Gm Pack) 17 gm PO QAM [facility] Stop: 01/31/23 08:59 Last Admin: 01/01/23 08:48 Dose: Not Given Vitamin D (Cholecalciferol 1,000 Units 25 Mcg Tab) 2,000 units PO QAM [facility] Stop: 01/31/23 08:59 Last Admin: 01/01/23 08:46 Dose: 2,000 units
[2023-01-01] MEDS ORDERED: ONDANSETRON INJ 2 MG/ML 2 ML VIAL IV PRN (13:12)
[2023-01-01] MEDS ORDERED: fentaNYL citrate 100 MCG/2 ML VIAL IV PRN (13:12)
[2023-01-01] MEDS ORDERED: ePHEDrine sulfate 50 MG/ML AMP IV PRN (13:12)
[2023-01-01] MEDS ORDERED: ATROPINE SULFATE 0.1 MG/ML 10ML SYR IV PRN (13:12)
--- NOTE | 2023-01-01 13:17 | History & Physical Bridge Note ---
Date of Service January 01, 2023 History & Physical Bridge Note I have examined the patient, reviewed the History & Physical and in the interval since the performance of the History & Physical I have noted the following changes of clinical significance: no changes noted
[2023-01-01] MEDS ORDERED: LIDOCAINE 2% MPF LOCAL 5 ML VIAL INFIL ONE (14:10)
[2023-01-01] MEDS ORDERED: fentaNYL citrate 100 MCG/2 ML VIAL ONE (14:10)
[2023-01-01] MEDS ORDERED: PROPOFOL IV EMULSION 10 MG/ML 20 ML VIAL IV ONE (14:10)
[2023-01-01] MEDS ORDERED: ONDANSETRON INJ 2 MG/ML 2 ML VIAL ONE (14:17)
--- NOTE | 2023-01-01 14:31 | Operative Report ---
Post Operative Report Pre & Post Diagnosis Operation Date: 01/01/23 10:30 Pre-Op Diagnosis: Dislocated left hip total hip arthroplasty Post-Op Diagnosis: Dislocated left hip total hip arthroplasty I identified the patient and participated in the time-out.: Yes Procedure Operation Date: 01/01/23 10:30 Actual Procedures p Closed Reduction Dislocated Left Hip(Left) under fluoroscopic guidance- Mateo Morgan DO Surgeon Mateo Morgan DO [employer] VINAYAK Adkins Estimated Blood Loss 0 Findings Consistent with Post-Op Diagnosis Patient presents 13 years status post left total hip arthroplasty with a first- time dislocation last evening's had her foot planted and had a pivot and had a dislocation Specimens None Drains None Anesthesia Type MAC Complications none Disposition Accompanied Patient To Recovery: No Disposition: Recovery Room Indications Patient presents with a posterior dislocation of the left total hip arthroplasty done 13 years prior to first-time dislocation Description of Procedure Under fluoroscopic guidance a gentle traction and flexion was applied mild a bduction of the hip reduced easily into the acetabulum was stable taken to range of motion including flexion extension internal/external rotation was stable and abduction pillow was placed patient was neurovascular neurologically intact taken recovery in stable condition. I attest to the content of the Intraoperative Record and any orders documented therein. Any exceptions are noted below.
--- NOTE | 2023-01-01 14:56 | Anesthesiology Progress Note ---
Date of Service January 01, 2023 Anesthesia Post Procedure Vital Signs Vital Signs: Temp Pulse Pulse Pulse Resp BP BP 01/01/23 14:50 57 L 12 113/64 01/01/23 14:40 60 14 107/69 01/01/23 14:34 37 C 55 L 14 92/56 L 01/01/23 07:15 54 L 01/01/23 11:07 36.4 C L 58 L 15 125/86 01/01/23 07:31 36.9 C 83 15 144/75 H 01/01/23 02:07 61 01/01/23 04:00 36.3 C L 56 L 18 138/77 01/01/23 01:34 01/01/23 00:50 57 L 12/31/22 21:30 65 14 12/31/22 21:30 147/90 H 12/31/22 21:00 65 14 12/31/22 21:00 158/92 H 12/31/22 20:48 69 15 12/31/22 20:50 69 12/31/22 20:46 36.6 C 67 20 182/93 H Pulse Ox O2 Del Method O2 Flow Rate 01/01/23 14:50 100 Nasal Cannula 2 01/01/23 14:40 100 Nasal Cannula 2 01/01/23 14:34 100 Nasal Cannula 3 01/01/23 07:15 01/01/23 11:07 99 Room Air 01/01/23 07:31 94 Room Air 01/01/23 02:07 01/01/23 04:00 100 Room Air 01/01/23 01:34 Room Air 01/01/23 00:50 12/31/22 21:30 100 12/31/22 21:30 12/31/22 21:00 100 12/31/22 21:00 12/31/22 20:48 92 12/31/22 20:50 12/31/22 20:46 98 Room Air Pain Intensity Left Hip: Pain Intensity: 5 Transfer of Care Handoff Completed per policy Notes Mental Status: alert / awake / arousable Patient Amnestic to Procedure: Yes Nausea / Vomiting: adequately controlled Pain: adequately controlled Airway Patency, RR, SpO2: stable & adequate BP & HR: stable & adequate Hydration State: stable & adequate Anesthetic Complications: no major complications apparent
--- NOTE | 2023-01-01 15:22 | Fluoroscopy Report ---
FL hip LT 1V CLINICAL HISTORY: LT C/R CHARY DISLOCATED COMPARISON STUDY: Left hip radiographs December 31, 2022. FLUOROSCOPY TIME: 21 seconds. EXPOSURE DOSE: 3.06 mGy FLUOROSCOPIC IMAGES: 1 FINDINGS: Fluoroscopy was provided during closed reduction of the left hip arthroplasty. Alignment ap pears anatomic on AP projection. IMPRESSION: Fluoroscopy provided during closed reduction of the left hip arthroplasty. ACT 112: Negative or not required by law. Electronically signed by: Christian Zambrano M.D. 01/01/2023 3:21 PM
[2023-01-01] MEDS ORDERED: oxyCODONE/ACETAMINOPHEN 5mg/325mg TAB PO PRN (15:33)
[2023-01-01] MEDS ORDERED: CLOBETASOL PROPIONATE 0.05% OINT 15 GM TUBE EXT PRN (16:11)
[2023-01-01] MEDS: amLODIPine BESYLATE 5 MG TAB PO SCH (21:57)
[2023-01-01] MEDS: HYDROXYCHLOROQUINE SULFATE 200 MG TAB PO SCH (21:58)
[2023-01-02] MEDS: LEVOTHYROXINE SODIUM 88 MCG TABLET PO SCH (06:10)
[2023-01-02 08:05] LABS: Hematocrit (blood only) 30.6 % (37.0-47.0); Hemoglobin 10.5 g/dl (12.0-16.0); Mean Corpuscular Hemoglobin 29.6 pg (25.0-34.0); Mean Corpuscular Hgb Conc 34.3 g/dL (32.0-36.0); Mean Corpuscular Volume 86.2 fL (80.0-100.0); Mean Platelet Volume 9.6 fL (9.4-12.4); Platelet Count 212 K/uL (130-400); RDW Coefficient of Variation 14.3 % (11.5-14.5); RDW Standard Deviation 44.8 fL (36.4-46.3); Red Blood Count 3.55 M/uL (4.20-5.40); White Blood Count 3.78 K/ul (4.8-10.8)
[2023-01-02] MEDS: FLUTICASONE PROPIONATE NA SPR 16 GM BTL SCH (08:15)
[2023-01-02] MEDS: LORATADINE 10 MG TAB PO SCH (08:15)
[2023-01-02] MEDS: MULTIVITAMIN TAB PO SCH (08:16)
[2023-01-02] MEDS: CLOPIDOGREL BISULFATE 75 MG TAB PO SCH (08:17)
[2023-01-02] MEDS: lisinopril 2.5 MG TAB PO SCH (08:17)
[2023-01-02] MEDS: POLYETHYLENE (MIRALAX) 17 GM PACK PO SCH (08:17)
[2023-01-02] MEDS: DOCUSATE SODIUM 100 MG CAP PO SCH ×2 (08:17→22:03)
[2023-01-02] MEDS: FUROSEMIDE 20 MG TAB PO SCH (08:17)
[2023-01-02] MEDS: ADVANCED PROBIOTIC 1250 MG CAPSULE PO SCH (08:17)
[2023-01-02] MEDS: FERROUS SULFATE 325 MG TAB PO SCH (08:17)
[2023-01-02] MEDS: ZINC SULFATE 220 MG CAPSULE PO SCH (08:17)
[2023-01-02] MEDS: METOPROLOL SUCC 25MG EXT REL TAB PO SCH (08:17)
[2023-01-02] MEDS: CHOLECALCIFEROL 1,000 UNITS 25 MCG TAB PO SCH (08:18)
[2023-01-02] MEDS: ATORVASTATIN 40 MG TAB PO SCH (08:18)
[2023-01-02] MEDS: ASPIRIN 81 MG ECTAB PO SCH (08:18)
[2023-01-02 08:32] LABS: Creatinine Clr Calc Pharmacy 38.8 ml/min; Est GFR (African American) 83.6 ml/min; Est GFR (Non-African American) 72.1 ml/min; Potassium 4.9 mmol/L (3.5-5.1)
--- NOTE | 2023-01-02 10:18 | Cardiology Progress Note ---
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 Chart reviewed. Telemetry reviewed. States that she is feeling much better today with significantly less hip pain. Review of Systems Review of Systems: All systems reviewed & are unremarkable except as noted in HPI & below Physical Exam Physical Exam: General: Awake, alert and oriented x 3. No acute distress. HEENT: Normocephalic, atraumatic. Pupils equal, round and reactive to light and accommodation. Extraocular muscles are intact. Anicteric sclera. Moist mucous membranes. Neck: No JVD. No bruit. Cardiovascular: Regular. Positive S-4. Normal S-1 and S-2. No S-3. No murmurs or rubs. Pulmonary: Clear to auscultation B/L. No rales, rhonchi or wheezing Abdomen: Bowel sounds x 4, soft. No rebound, guarding or tenderness. No organomegaly. Extremities: No clubbing, cyanosis or edema. +2 pedal pulses bilaterally. Skin: Warm and dry. Results & Data ([facility]) Vital Signs (Past 12 Hours) Vital Signs Temp Pulse Pulse Pulse Resp BP BP 01/02/23 08:14 36.8 C 71 20 136/79 01/02/23 03:01 36.5 C 70 16 110/70 01/01/23 23:37 36.7 C 60 18 119/70 01/01/23 23:34 65 Pulse Ox O2 Del Method 01/02/23 08:14 100 Room Air 01/02/23 03:01 92 Room Air 01/01/23 23:37 98 Room Air 01/01/23 23:34
[2023-01-02] MEDS: SODIUM CHLORIDE 1 GM TABLET PO SCH ×2 (11:00→22:04)
--- NOTE | 2023-01-02 13:58 | Orthopedic Progress Note ---
Date of Service January 02, 2023 Assessment & Plan (1) Dislocated hip: Plan: s/p Closed Reduction of a dislocated Left Hip under fluoroscopic guidance- Mateo Morgan, strict hip precautions WBAT PT/OT will have patient f/u with Dr Rey at [facility] 2-3 weeks after discharge Admission and Anticipated Discharge Date Admission Date: January 01, 2023 Subjective s/p Closed Reduction of a dislocated Left Hip under fluoroscopic guidance- Mateo Moragn, Review of Systems Constitutional: no fever and no chills Respiratory: no cough and no dyspnea Cardiovascular: no chest pain, no dyspnea and no orthopnea Gastrointestinal: no abdominal pain, no nausea and no vomiting Physical Exam Physical Exam: Vital Signs Temp 36.4 C L 01/02/23 11:52 Pulse 68 01/02/23 11:52 Resp 20 01/02/23 11:52 BP 138/82 01/02/23 11:52 Pulse Ox 93 01/02/23 11:52 O2 Del Method Room Air 01/02/23 11:52 O2 Flow Rate 1.5 01/01/23 15:40 Intake & Output 01/01/23 01/02/23 01/02/23 18:59 06:59 18:59 Intake Total 666.333 / 1146.333 480 / 1146.333 Output Total 700 / 1300 600 / 1300 Balance -33.667 / -153.667 -120 / -153.667 Weight 43.4 kg 40.4 kg Intake: IV 291.333 / 291.333 D5w and Nss 1, 000 ml @ 40 mls/ 291.333 / 291.333 hr IV .Q24H SC H Rx#:[id number] IV Perioperative 75 / 75 Oral 300 / 780 480 / 780 Output: Urine 300 / 300 Urine Amount ([place]) 400 / 1000 600 / 1000 [place]/Indwelli ng 400 / 1000 600 / 1000 Other: Other Intake Nadya rce NPO sips and chips Weight Measureme nt Method Built in [facility] Musculoskeletal: left leg: NVDI, calf soft, non-tender, DP palpable, leg lengths appear equal Results & Data ([facility]) Vital Signs (Past 12 Hours) Vital Signs Temp Pulse Pulse Resp BP BP Pulse Ox 01/02/23 11:52 36.4 C L 68 20 138/82 93 01/02/23 08:14 36.8 C 71 20 136/79 100 01/02/23 03:01 36.5 C 70 16 110/70 92 O2 Del Method 01/02/23 11:52 Room Air 01/02/23 08:14 Room Air 01/02/23 03:01 Room Air Diagnostic Findings FL hip LT 1V CLINICAL HISTORY: LT C/R CHARY DISLOCATED COMPARISON STUDY: Left hip radiographs December 31, 2022. FLUOROSCOPY TIME: 21 seconds. EXPOSURE DOSE: 3.06 mGy FLUOROSCOPIC IMAGES: 1 FINDINGS: Fluoroscopy was provided during closed reduction of the left hip arthroplasty. Alignment appears anatomic on AP projection. IMPRESSION: Fluoroscopy provided during closed reduction of the left hip arthroplasty.
--- NOTE | 2023-01-02 17:11 | Hospitalist Progress Note ---
Date of Service January 02, 2023 Assessment & Plan (1) Dislocated hip: Plan: Left hip dislocation without antecedent trauma Status post closed reduction of dislocated left hip on 01/01/2023 Appreciate Ortho input and recommendation Has been complaining of pain Will get physical therapy and will likely need placement (2) Hyponatremia: Plan: She has not been using any salt during cooking and does not take any extra salt during eating for years Possible psychogenic polydipsia. Pt states to drinking more free water recently. She reports that "I did too much because my doctor said I needed to drink more water. Her sodium level is 126 today We will try sodium tablet 1 g twice a day Monitor PRP (3) Hypothyroidism: Plan: Chronic, stable. Cont synthroid per home regimen. (4) Hypertension: Plan: Chronic, stable. Cont current therapy. (5) Diastolic heart failure: Plan: Chronic, stable. Cont current therapy. No signs and or symptoms of fluid overload (6) Systemic lupus: Plan: Chronic, stable. Cont Plaquenil peer home regimen. (7) CAD (coronary artery disease): Plan: chronic, stable. Cont current medical management DVT proph:SCDs, chemoprophylaxis per ortho Full Code Dispo-pending PT/OT evaluations and clinical recovery. Admission and Anticipated Discharge Date Admission Date: January 01, 2023 Subjective 01/02/2023 The patient was seen and examined in medical telemetry unit She has been feeling much better except pain in the left hip She has not had physical therapy Denies any other significant symptoms Review of Systems Review of Systems: All systems reviewed and are unremarkable except as noted below Musculoskeletal: Left lower extremity pain mainly secondary to left hip pain Physical Exam Physical Exam: Lying in bed comfortably Constitutional: + ill appearing and + thin Eyes: PERRL, conjunctivae normal, anicteric sclerae ENMT: external ear and nose normal, oropharynx normal Neck: trachea midline, no thyromegaly Respiratory: no respiratory distress Auscultation: + diminished lung sounds and + crackles (Minimal crackles at the bases) Cardiovascular: Rate/Rhythm: regular rate and regular rhythm; not tachycardic Heart Sounds: normal S1, normal S2 and + murmur Extremities: no edema Gastrointestinal (Abdomen): Inspection/Auscultation: normal bowel sounds; abdomen not distended Percussion/Palpation: abdomen soft; abdomen nontender Musculoskeletal: Any movement of the left lower extremity causes pain in the hip Neurologic: Alert, awake and oriented x3 Results & Data Results & Data ([facility]) Vital Signs (Past 12 Hours) Vital Signs Temp Pulse Pulse Resp BP BP Pulse Ox 01/02/23 08:00 64 01/02/23 16:21 69 01/02/23 15:57 36.8 C 57 L 20 132/78 95 01/02/23 11:52 36.4 C L 68 20 138/82 93 01/02/23 08:14 36.8 C 71 20 136/79 100 O2 Del Method 01/02/23 08:00 01/02/23 16:21 01/02/23 15:57 Room Air 01/02/23 11:52 Room Air 01/02/23 08:14 Room Air Laboratory Results Short CBC 01/02/23 Range/Units 07:33 WBC 3.78 L (4.8-10.8) K/ul Hgb 10.5 L (12.0-16.0) g/dl Hct 30.6 L (37.0-47.0) % Plt Count 212 (130-400) K/uL BMP 01/02/23 07:33 Sodium 126 L Potassium 4.9 Chloride 96 L Carbon Dioxide 28 BUN 20 Creatinine 0.80 Glucose 81 Calcium 8.0 L Medications Administered Current Inpatient Medications Acetaminophen (Acetaminophen 325 Mg Tab) 650 mg PO Q6H PRN PRN Reason: Fever/pain Stop: 01/31/23 00:20 Amlodipine Besylate (Amlodipine Besylate 5 Mg Tab) 2.5 mg PO QPM KIRSTEN Stop: 01/31/23 20:59 Last Admin: 01/01/23 21:57 Dose: 2.5 mg Aspirin (Aspirin 81 Mg Ectab) 81 mg PO DAILY KIRSTEN Stop: 01/31/23 08:59 Last Admin: 01/02/23 08:18 Dose: 81 mg Atorvastatin Calcium (Atorvastatin 40 Mg Tab) 40 mg PO QAM KIRSTEN Stop: 01/31/23 08:59 Last Admin: 01/02/23 08:18 Dose: 40 mg Clobetasol Propionate (Clobetasol Propionate 0.05% Oint 15 Gm Tube) 1 appln EXT BID PRN PRN Reason: LUPUS FLARES/JOINT PAIN Stop: 01/31/23 16:10 Clopidogrel Bisulfate (Clopidogrel Bisulfate 75 Mg Tab) 75 mg PO DAILY [facility] Stop: 02/01/23 08:59 Last Admin: 01/02/23 08:17 Dose: 75 mg Docusate Sodium (Docusate Sodium 100 Mg Cap) 100 mg PO BID KIRSTEN Stop: 01/31/23 08:59 Last Admin: 01/02/23 08:17 Dose: 100 mg Ferrous Sulfate (Ferrous Sulfate 325 Mg Tab) 325 mg PO QAM [facility] Stop: 01/31/23 08:59 Last Admin: 01/02/23 08:17 Dose: 325 mg Fluticasone Propionate (Fluticasone Propionate Na Spr 16 Gm Btl) 2 sprays NA DAILY KIRSTEN Stop: 01/31/23 08:59 Last Admin: 01/02/23 08:15 Dose: Not Given Furosemide (Furosemide 20 Mg Tab) 30 mg PO QAM [facility] Stop: 02/01/23 08:59 Last Admin: 01/02/23 08:17 Dose: 30 mg Hydroxychloroquine Sulfate (Hydroxychloroquine Sulfate 200 Mg Tab) 200 mg PO HS [facility] Stop: 01/31/23 20:59 Last Admin: 01/01/23 21:58 Dose: 200 mg Promethazine HCl 6.25 mg/ (Sodium Chloride) 50.25 mls @ 201 mls/hr IV Q6H PRN PRN Reason: Nausea And Vomiting Stop: 01/31/23 01:08 Lactobacillus Acidophilus (Advanced Probiotic 1250 Mg Capsule) 2 cap PO QAM [facility] Stop: 01/31/23 08:59 Last Admin: 01/02/23 08:17 Dose: 2 cap Levothyroxine Sodium (Levothyroxine Sodium 88 Mcg Tablet) 88 mcg PO DAILYBB [facility] Stop: 01/31/23 06:29 Last Admin: 01/02/23 06:10 Dose: 88 mcg Lisinopril (Lisinopril 2.5 Mg Tab) 2.5 mg PO DAILY KIRSTEN Stop: 01/31/23 08:59 Last Admin: 01/02/23 08:17 Dose: 2.5 mg Loratadine (Loratadine 10 Mg Tab) 10 mg PO DAILY [facility] Stop: 01/31/23 08:59 Last Admin: 01/02/23 08:15 Dose: Not Given Metoprolol Succinate (Metoprolol Succ 25mg Ext Rel Tab) 25 mg PO DAILY [facility] Stop: 01/31/23 08:59 Last Admin: 01/02/23 08:17 Dose: 25 mg Miscellaneous (Cyclosporine [Restasis]: Order Awaiting Action) 1 each N/A QS [facility] Stop: 01/31/23 07:59 Last Admin: 01/02/23 15:05 Dose: Not Given Miscellaneous (Clobetasol 0.05 % Shampoo - Order Awaiting Action) 1 each N/A QS [facility] Stop: 02/01/23 00:00 Last Admin: 01/02/23 15:05 Dose: Not Given Miscellaneous (Tacrolimus 0.1 % Ointment - Order Awaiting Action) 1 each N/A QS [facility] Stop: 02/01/23 00:00 Last Admin: 01/02/23 15:05 Dose: Not Given Miscellaneous (Denosumab [Prolia] 60 Mg/Ml - Order Awaiting Action) 1 each N/A QS [facility] Stop: 02/01/23 00:00 Last Admin: 01/02/23 15:05 Dose: Not Given Morphine Sulfate (Morphine Sulfate 2 Mg/Ml Carp) 2 mg IV Q3H PRN PRN Reason: Pain Stop: 01/15/23 01:08 Last Admin: 01/01/23 10:37 Dose: 2 mg Multivitamins (Multivitamin Tab) 1 tab PO DAILY [facility] Stop: 01/31/23 08:59 Last Admin: 01/02/23 08:16 Dose: 1 tab Nitroglycerin (Nitroglycerin Sl 0.4 Mg/Tab Tab) 0.4 mg SL UD PRN PRN Reason: Chest Pain Stop: 01/31/23 01:46 Oxycodone/Acetaminophen (Oxycodone/Acetaminophen 5mg/325mg Tab) 1 tab PO Q4H PRN PRN Reason: Moderate Pain Polyethylene Glycol (Polyethylene (Miralax) 17 Gm Pack) 17 gm PO QAM [facility] Stop: 01/31/23 08:59 Last Admin: 01/02/23 08:17 Dose: 17 gm Sodium Chloride (Sodium Chloride 1 Gm Tablet) 1 gm PO BID [facility] Stop: 02/01/23 09:44 Last Admin: 01/02/23 11:00 Dose: 1 gm Vitamin D (Cholecalciferol 1,000 Units 25 Mcg Tab) 2,000 units PO QAM [facility] Stop: 01/31/23 08:59 Last Admin: 01/02/23 08:18 Dose: 2,000 units Zinc Sulfate (Zinc Sulfate 220 Mg Capsule) 220 mg PO [facility] Stop: 02/01/23 08:59 Last Admin: 01/02/23 08:17 Dose: 220 mg
[2023-01-02] MEDS: amLODIPine BESYLATE 5 MG TAB PO SCH (22:02)
[2023-01-02] MEDS: HYDROXYCHLOROQUINE SULFATE 200 MG TAB PO SCH (22:04)
[2023-01-03] MEDS: LEVOTHYROXINE SODIUM 88 MCG TABLET PO SCH (05:41)
[2023-01-03] MEDS: POLYETHYLENE (MIRALAX) 17 GM PACK PO SCH (08:09)
[2023-01-03] MEDS: ATORVASTATIN 40 MG TAB PO SCH (08:09)
[2023-01-03] MEDS: FLUTICASONE PROPIONATE NA SPR 16 GM BTL SCH (08:09)
[2023-01-03] MEDS: LORATADINE 10 MG TAB PO SCH (08:09)
[2023-01-03 08:10] LABS: BUN Creatinine Ratio 25.4 (10-20); Creatinine Clr Calc Pharmacy 46.5 ml/min; Est GFR (African American) 99.7 ml/min; Magnesium 2.1 mg/dl (1.7-2.4); Potassium 4.8 mmol/L (3.5-5.1)
[2023-01-03] MEDS: ZINC SULFATE 220 MG CAPSULE PO SCH (08:10)
[2023-01-03] MEDS: ASPIRIN 81 MG ECTAB PO SCH (08:10)
[2023-01-03] MEDS: SODIUM CHLORIDE 1 GM TABLET PO SCH (08:10)
[2023-01-03] MEDS: MULTIVITAMIN TAB PO SCH (08:10)
[2023-01-03] MEDS: METOPROLOL SUCC 25MG EXT REL TAB PO SCH (08:10)
[2023-01-03] MEDS: FERROUS SULFATE 325 MG TAB PO SCH (08:10)
[2023-01-03] MEDS: CLOPIDOGREL BISULFATE 75 MG TAB PO SCH (08:10)
[2023-01-03] MEDS: DOCUSATE SODIUM 100 MG CAP PO SCH (08:10)
[2023-01-03] MEDS: lisinopril 2.5 MG TAB PO SCH (08:10)
[2023-01-03] MEDS: CHOLECALCIFEROL 1,000 UNITS 25 MCG TAB PO SCH (08:10)
[2023-01-03] MEDS: FUROSEMIDE 20 MG TAB PO SCH (08:10)
[2023-01-03] MEDS: ADVANCED PROBIOTIC 1250 MG CAPSULE PO SCH (08:11)
--- NOTE | 2023-01-03 12:57 | Hospitalist Progress Note ---
Date of Service January 03, 2023 Assessment & Plan (1) Dislocated hip: Plan: Left hip dislocation without antecedent trauma Status post closed reduction of dislocated left hip on 01/01/2023 Appreciate Ortho input and recommendation Has been complaining of pain Therapy recommended home We will have outpatient PT at [facility] (2) Hyponatremia: Plan: She has not been using any salt during cooking and does not take any extra salt during eating for years Possible psychogenic polydipsia. Pt states to drinking more free water recently. She reports that "I did too much because my doctor said I needed to drink more water. Her sodium level is 126 today We will try sodium tablet 1 g twice a day Monitor PRP-sodium has gone up to 128 She does not want to stay any longer in the hospital for sodium to be improved Advised to take use salt in her cooking (3) Hypothyroidism: Plan: Chronic, stable. Cont synthroid per home regimen. (4) Hypertension: Plan: Chronic, stable. Cont current therapy. (5) Diastolic heart failure: Plan: Chronic, stable. Cont current therapy. No signs and or symptoms of fluid overload (6) Systemic lupus: Plan: Chronic, stable. Cont Plaquenil peer home regimen. (7) CAD (coronary artery disease): Plan: chronic, stable. Cont current medical management DVT proph:SCDs, chemoprophylaxis per ortho Full Code Dispo-pending PT/OT evaluations and clinical recovery. She will be discharged home this afternoon Admission and Anticipated Discharge Date Admission Date: January 01, 2023 Subjective 01/02/2023 The patient was seen and examined in medical telemetry unit She has been feeling much better except pain in the left hip She has not had physical therapy Denies any other significant symptoms 01/03/2023 The patient was seen and examined in medical telemetry unit She did very good with physical therapy and will be discharged home with outpatient PT at [facility] as per the patient Does not want to stay any longer and wants to go home She is adamant that she does not need any inpatient rehab and she will be going home Review of Systems Review of Systems: All systems reviewed and are unremarkable except as noted below Musculoskeletal: Left lower extremity pain mainly secondary to left hip pain Physical Exam Physical Exam: Lying in bed comfortably Constitutional: + ill appearing and + thin Eyes: PERRL, conjunctivae normal, anicteric sclerae ENMT: external ear and nose normal, oropharynx normal Neck: trachea midline, no thyromegaly Respiratory: no respiratory distress Auscultation: + diminished lung sounds and + crackles (Minimal crackles at the bases) Cardiovascular: Rate/Rhythm: regular rate and regular rhythm; not tachycardic Heart Sounds: normal S1, normal S2 and + murmur Extremities: no edema Gastrointestinal (Abdomen): Inspection/Auscultation: normal bowel sounds; abdomen not distended Percussion/Palpation: abdomen soft; abdomen nontender Musculoskeletal: Left hip pain on movement Neurologic: normal touch/pain/proprioception and moves all extremities; no focal motor deficits Results & Data Results & Data ([facility]) Vital Signs (Past 12 Hours) Vital Signs Temp Pulse Pulse Resp BP BP Pulse Ox 01/03/23 11:46 36.6 C 68 18 104/68 99 01/03/23 07:37 36.5 C 65 18 129/66 99 01/03/23 07:21 58 L 01/03/23 02:43 36.3 C L 62 16 135/77 98 01/03/23 01:07 62 O2 Del Method 01/03/23 11:46 Room Air 01/03/23 07:37 Room Air 01/03/23 07:21 01/03/23 02:43 Room Air 01/03/23 01:07 Laboratory Results [facility] 01/03/23 07:06 Sodium 128 L Potassium 4.8 Chloride 98 Carbon Dioxide 29 BUN 17 Creatinine 0.67 Glucose 85 Calcium 8.0 L Medications Administered Current Inpatient Medications Acetaminophen (Acetaminophen 325 Mg Tab) 650 mg PO Q6H PRN PRN Reason: Fever/pain Stop: 01/31/23 00:20 Amlodipine Besylate (Amlodipine Besylate 5 Mg Tab) 2.5 mg PO QPM KIRSTEN Stop: 01/31/23 20:59 Last Admin: 01/02/23 22:02 Dose: 2.5 mg Aspirin (Aspirin 81 Mg Ectab) 81 mg PO DAILY KIRSTEN Stop: 01/31/23 08:59 Last Admin: 01/03/23 08:10 Dose: 81 mg Atorvastatin Calcium (Atorvastatin 40 Mg Tab) 40 mg PO QAM KIRSTEN Stop: 01/31/23 08:59 Last Admin: 01/03/23 08:09 Dose: 40 mg Clobetasol Propionate (Clobetasol Propionate 0.05% Oint 15 Gm Tube) 1 appln EXT BID PRN PRN Reason: LUPUS FLARES/JOINT PAIN Stop: 01/31/23 16:10 Clopidogrel Bisulfate (Clopidogrel Bisulfate 75 Mg Tab) 75 mg PO DAILY [facility] Stop: 02/01/23 08:59 Last Admin: 01/03/23 08:10 Dose: 75 mg Docusate Sodium (Docusate Sodium 100 Mg Cap) 100 mg PO BID [facility] Stop: 01/31/23 08:59 Last Admin: 01/03/23 08:10 Dose: 100 mg Ferrous Sulfate (Ferrous Sulfate 325 Mg Tab) 325 mg PO QAM [facility] Stop: 01/31/23 08:59 Last Admin: 01/03/23 08:10 Dose: 325 mg Fluticasone Propionate (Fluticasone Propionate Na Spr 16 Gm Btl) 2 sprays NA DAILY [facility] Stop: 01/31/23 08:59 Last Admin: 01/03/23 08:09 Dose: 2 sprays Furosemide (Furosemide 20 Mg Tab) 30 mg PO QAM [facility] Stop: 02/01/23 08:59 Last Admin: 01/03/23 08:10 Dose: 30 mg Hydroxychloroquine Sulfate (Hydroxychloroquine Sulfate 200 Mg Tab) 200 mg PO HS [facility] Stop: 01/31/23 20:59 Last Admin: 01/02/23 22:04 Dose: 200 mg Promethazine HCl 6.25 mg/ (Sodium Chloride) 50.25 mls @ 201 mls/hr IV Q6H PRN PRN Reason: Nausea And Vomiting Stop: 01/31/23 01:08 Lactobacillus Acidophilus (Advanced Probiotic 1250 Mg Capsule) [facility] Stop: 01/31/23 08:59 Last Admin: 01/03/23 08:11 Dose: 2 cap Levothyroxine Sodium (Levothyroxine Sodium 88 Mcg Tablet) 88 mcg PO DAILYBB [facility] Stop: 01/31/23 06:29 Last Admin: 01/03/23 05:41 Dose: 88 mcg Lisinopril (Lisinopril 2.5 Mg Tab) 2.5 mg PO DAILY [facility] Stop: 01/31/23 08:59 Last Admin: 01/03/23 08:10 Dose: 2.5 mg Loratadine (Loratadine 10 Mg Tab) 10 mg PO DAILY [facility] Stop: 01/31/23 08:59 Last Admin: 01/03/23 08:09 Dose: 10 mg Metoprolol Succinate (Metoprolol Succ 25mg Ext Rel Tab) 25 mg PO DAILY [facility] Stop: 01/31/23 08:59 Last Admin: 01/03/23 08:10 Dose: 25 mg Miscellaneous (Cyclosporine [Restasis]: Order Awaiting Action) 1 each N/A QS [facility] Stop: 01/31/23 07:59 Last Admin: 01/03/23 08:15 Dose: Not Given Miscellaneous (Clobetasol 0.05 % Shampoo - Order Awaiting Action) 1 each N/A QS [facility] Stop: 02/01/23 00:00 Last Admin: 01/03/23 08:15 Dose: Not Given Miscellaneous (Tacrolimus 0.1 % Ointment - Order Awaiting Action) 1 each N/A QS [facility] Stop: 02/01/23 00:00 Last Admin: 01/03/23 08:15 Dose: Not Given Miscellaneous (Denosumab [Prolia] 60 Mg/Ml - Order Awaiting Action) 1 each N/A QS [facility] Stop: 02/01/23 00:00 Last Admin: 01/03/23 08:15 Dose: Not Given Morphine Sulfate (Morphine Sulfate 2 Mg/Ml Carp) 2 mg IV Q3H PRN PRN Reason: Pain Stop: 01/15/23 01:08 Last Admin: 01/01/23 10:37 Dose: 2 mg Multivitamins (Multivitamin Tab) 1 tab PO DAILY [facility] Stop: 01/31/23 08:59 Last Admin: 01/03/23 08:10 Dose: 1 tab Nitroglycerin (Nitroglycerin Sl 0.4 Mg/Tab Tab) 0.4 mg SL UD PRN PRN Reason: Chest Pain Stop: 01/31/23 01:46 Oxycodone/Acetaminophen (Oxycodone/Acetaminophen 5mg/325mg Tab) 1 tab PO Q4H PRN PRN Reason: Moderate Pain Polyethylene Glycol (Polyethylene (Miralax) 17 Gm Pack) 17 gm PO QAM [facility] Stop: 01/31/23 08:59 Last Admin: 01/03/23 08:09 Dose: 17 gm Sodium Chloride (Sodium Chloride 1 Gm Tablet) 1 gm PO BID [facility] Stop: 02/01/23 09:44 Last Admin: 01/03/23 08:10 Dose: 1 gm Vitamin D (Cholecalciferol 1,000 Units 25 Mcg Tab) 2,000 units PO [facility] Stop: 01/31/23 08:59 Last Admin: 01/03/23 08:10 Dose: 2,000 units Zinc Sulfate (Zinc Sulfate 220 Mg Capsule) 220 mg PO [facility] Stop: 02/01/23 08:59 Last Admin: 01/03/23 08:10 Dose: 220 mg
--- NOTE | 2023-01-03 17:21 | Discharge Summary ---
Date of Service January 03, 2023 Admission HPI Per Admitting Provider History obtained from patient, family, and records. Medical history significant for chronic diastolic heart failure (EF 58%, TTE 2017), CAD status post stent CVA, SLE, hypothyroidism, chronic hyponatremia secondary to SIADH, chronic anemia (baseline hemoglobin of 11), mood disorder, past tobacco abuse. Last confinement July 2022 under Orthopedics spine service for lumbar spinal stenosis status post decompression surgery. Patient experienced achy left hip pain today without trauma. No falling. Unable to stand up. No chest pain, no SOB. Patient brought to ER for evaluation. 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 Admission Exam Per Admitting Provider Physical Exam: GENERAL: Slightly uncomfortable, underweight, no respiratory distress SKIN: Normal color, warm HEENT: Waves palpebral conjunctivae, no ptosis, dry buccal mucosa NECK : Supple, no tenderness CHEST : Decreased breath sounds, no tenderness HEART : RRR, no obvious murmurs ABDOMEN: no distention, nontender EXTREMITIES : No LE swelling, left hip tenderness, no other conspicuous deformities noted NEUROLOGIC : Coherent, no facial asymmetry, mild hearing impairment, no other gross focality Principal Diagnosis Dislocation of the left hip status post repositioned, hyponatremia seems to be chronic, hypothyroidism, stable diastolic heart failure Discharge Exam Lying in bed comfortably Constitutional + ill appearing and + thin Eyes PERRL, conjunctivae normal, anicteric sclerae ENMT external ear and nose normal, oropharynx normal Neck trachea midline, no thyromegaly Respiratory no respiratory distress Auscultation: + diminished lung sounds and + crackles (Minimal crackles at the bases) Cardiovascular Rate/Rhythm: regular rate and regular rhythm; not tachycardic Heart Sounds: normal S1, normal S2 and + murmur Extremities: no edema Gastrointestinal (Abdomen) Inspection/Auscultation: normal bowel sounds; abdomen not distended Percussion/Palpation: abdomen soft; abdomen nontender Neurologic normal touch/pain/proprioception and moves all extremities; no focal motor deficits Discharge Data Allergies Allergy/AdvReac Type Severity Reaction Status Date / Time venlafaxine Allergy Mild RASH Verified 12/31/22 23:45 Sulfa (Sulfonamide Allergy Unknown UNKNOWN Verified 12/31/22 23:45 Antibiotics) REACTION TO SULFA DRUGS tomato AdvReac Verified 12/31/22 23:45 Consultations 12/31/22 22:04 ED Decision to Admit Stat 01/01/23 01:09 Consult Orthopedic Surgery Routine 01/01/23 05:09 Consult Cardiology Routine Procedures Performed Operation Date: 01/01/23 10:30 Actual Procedures p Closed Reduction Dislocated Left Hip(Left) - Mateo Morgan DO Ordered Studies 01/01/23 13:30 FL hip LT 1V Routine Hospital Course (1) Dislocated hip: Left hip dislocation without antecedent trauma Status post closed reduction of dislocated left hip on 01/01/2023 Appreciate Ortho input and recommendation Has been complaining of pain Therapy recommended home We will have outpatient PT at [facility] (2) Hyponatremia: She has not been using any salt during cooking and does not take any extra salt during eating for years Possible psychogenic polydipsia. Pt states to drinking more free water recently. She reports that "I did too much because my doctor said I needed to drink more water. Her sodium level is 126 today We will try sodium tablet 1 g twice a day Monitor PRP-sodium has gone up to 128 She does not want to stay any longer in the hospital for sodium to be improved Advised to take use salt in her cooking (3) Hypothyroidism: Chronic, stable. Cont synthroid per home regimen. (4) Hypertension: Chronic, stable. Cont current therapy. (5) Diastolic heart failure: Chronic, stable. Cont current therapy. No signs and or symptoms of fluid overload (6) Systemic lupus: Chronic, stable. Cont Plaquenil peer home regimen. (7) CAD (coronary artery disease): chronic, stable. Cont current medical management DVT proph:SCDs, chemoprophylaxis per ortho Full Code Dispo-pending PT/OT evaluations and clinical recovery. She will be discharged home this afternoon Total Time Total Time Spent Total Time Spent (In Minutes): 35 minutes Discharge Plan Discharge Items Patient Disposition: Home - Self-Care Reason For Visit: HYPONATREMIA, L HIP PAIN Discharge Diagnosis: Dislocation of the left hip status post repositioned, hyponatremia seems to be chronic, hypothyroidism, stable diastolic heart failure Condition on Discharge: Fair Activity: As commented below Activity Comment: Continue outpatient physical therapy as planned Non-emergency contact: Primary Care Provider Call non-emergency contact if: you have any medication questions and your symptoms worsen Follow-up/Referrals: Missy Murillo MD [Primary Care Provider] - (Date & Time 01/09/2023 11:00 AM Provider Missy Murillo MD Department General Internal Medicine [facility] ) Diet: Heart Healthy Fluids: 1500ml (6 cups) Addtl Attending Provider Instructions: Please take precautions to avoid falls Take your medications as advised Continue with the physical therapy as advised Try to use a little bit of salt during cooking of your food Please give appointments with your healthcare providers Pending Studies at Discharge: No Stand-Alone Forms: My [facility] [employer], Smoking Cessation Medications and DC Order Prescriptions: Continued atorvastatin 40 mg tablet 40 mg PO QAM docusate sodium [Colace] 100 mg Capsule 100 mg PO BID hydroxychloroquine [Plaquenil] 200 mg Tablet 200 mg PO HS cholecalciferol (vitamin D3) [Vitamin D3] 1,000 unit Capsule 2,000 unit PO QAM clobetasol 0.05 % Shampoo 1 applic TOPICAL DIRECTED PRN (Reason: for flare up of lupus) polyethylene glycol 3350 8.5 gram Powder In Packet 17 g PO QAM Probiotic 3 billion cell Capsule 3,000 mmu cells PO QAM amlodipine 2.5 mg tablet 2.5 mg PO QPM levothyroxine [Synthroid] 88 mcg tablet 88 mcg PO DAILYBB metoprolol succinate 25 mg tablet extended release 24 hr 25 mg PO DAILY lisinopril 2.5 mg tablet 2.5 mg PO DAILY aspirin 81 mg Tablet,Delayed Release (Dr/Ec) 81 mg PO DAILY Qty: 1 0RF oxycodone-acetaminophen 5-325 mg tablet 1 tab PO Q4H PRN (Reason: Pain) Rx Instructions: MODERATE FOR UP TO 15 DOSES ferrous sulfate 325 mg (65 mg iron) Tablet 325 mg PO QAM furosemide 20 mg tablet 30 mg PO QAM clobetasol 0.05 % cream 1 applic TOPICAL BID PRN (Reason: .FLARES) Rx Instructions: APPLY TO LUPUS ON THE BODY,TWICE DAILY, NEEDED, FOR FLARES tacrolimus 0.1 % ointment 1 applic TOPICAL BID Rx Instructions: APPLY TO SPOTS ON FACE clopidogrel 75 mg tablet 75 mg PO DAILY fluticasone propionate 50 mcg/actuation spray,suspension 2 spray INTRANASAL DAILY cyclosporine 0.05 % dropperette 1 drp OPB Q12H zinc acetate 50 mg (zinc) Capsule 50 mg PO QAM loratadine 10 mg Tablet 10 mg PO DAILY nitroglycerin 0.4 mg Tablet, Sublingual 0.4 mg sublingual .DAILY/PRN PRN (Reason: Chest Pain) Rx Instructions: NEEDED FOR CHEST PAIN : ONE TABLET UNDER THE TONGUE EVERY 5 MINUTES UP TO THREE DOSES. Prolia 60 mg/mL Syringe 60 mg SUBCUT Q6M multivitamin Tablet 1 tab PO DAILY Discharge Orders: Discharge Order (Routine); Ordered 01/03/23 Ordered By: Magdiel Greene Discharge Order- CHF (Routine); Ordered 01/03/23 Ordered By: Magdiel Greene Admission Data Admit Date/Time: 01/01/23 01:08 Attending Provider: Magdiel Greene Admit Provider: Collin Hoover Primary Care Provider: Missy Murillo Other Providers: Collin Hoover ; Kayode Schroeder ; Agapito Figueroa ; Cassy Rudolph Thomas J ; Damari Lebron ; Calvin Fan ; Sukumar Gomez i ; Edmundo Morocho Andrew J. ; Sukumar Guzman ; Samir Dill ; Jorge Weiss ; Jose Daniel Fishman ; Missael Orona ; Damari Pereira ; Ollie Amador ; Surinder Hernandez ; Ann Sandoval ; Filemon Ram ; Ham [place] ; Della Reynolds ; Isaac Rey ; Roselyn Gomez ; Antony Altamirano ; Ryan Jean Baptiste ; Modesto Vaughn ; Mateo Locke ; Samir Miller ; Edmundo Araujo ; Meghann Velasquez ; Callie Patel ; Gunjan Dillon ; Bipin Wagoner ; Annetta Mares Other Interventions: Discharge Summary Assessment (RN) Last Done: 01/03/23 13:50
== END 2023-01-03 14:53 | disposition home or self-care (01) | DRG 560 ==
LOC: ED 20:42 → 2N 01-01 01:08 → SUATTDRO 01-01 01:08 → 2N 01-01 01:34

== ENCOUNTER 2023-02-02 13:49 | Observation (INO) ==
[2023-02-02] MEDS ORDERED: SODIUM CHLORIDE 0.9% 250 ML IV ONE (14:11)
[2023-02-02] MEDS ORDERED: ACETAMINOPHEN IV STA (14:11)
--- NOTE | 2023-02-02 14:19 | Emergency Department Note ---
Impression & Plan CHI (closed head injury), Hyponatremia, Fall, Dislocation of hip, left, closed ED Provider Note ED Provider Note NAME: ISADORA BOOKER AGE:77 SEX: Female : 1945 ARRIVES VIA: EMS INFORMANT: Patient ED PROVIDER(s): Kathy Willis DO CHIEF COMPLAINT: Fall, hip pain HPI: This is a 77-year-old female who presents emergency department via EMS following a fall at home. Patient is legally blind, and does become easily off balance. She states she was pulling out a dining room chair when she became off balance and fell. She states she seemed to initially landed on her right side and then turned to her back. She states she did strike her head but did not lose consciousness. Patient states she did hit both of her elbows. She states she also has pain at her left hip and is concerned that "it might be out" which she has had previously. Patient has been doing physical therapy for recent hip dislocation. Patient denies nausea, vomiting, neck or back pain, chest pain, abdominal pain, or trouble breathing. Patient does take aspirin and Plavix daily. PAST MEDICAL HISTORY:See Below PAST SURGICAL HISTORY:See Below FAMILY HISTORY:See Below SOCIAL HISTORY:See Below HOME MEDICATIONS:See Below ALLERGIES:See Below VITALS:See Below PHYSICAL EXAMINATION: GENERAL: alert, well appearing, well nourished, no distress, non-toxic HEAD: nc/at, no evidence of facial trauma, no quinones signs, no raccoon eyes EYE EXAM: normal conjunctiva, PERRL and EOM's grossly intact OROPHARYNX: no exudate, no erythema, lips, buccal mucosa, and tongue normal and mucous membranes are moist NECK: supple, no nuchal rigidity, no adenopathy, non-tender, FROM LUNGS: Clear to auscultation. Normal chest wall mechanics, no w/r/r HEART: no murmurs, S1 normal and S2 normal ABDOMEN: abdomen soft, non-tender, normo-active bowel sounds, no masses, no rebound or guarding. BACK: Back is symmetrical on inspection and there is no deformity, no midline tenderness, no CVA tenderness. SKIN: no rashes, petechiae, orbruising UPPER EXTREMITIES: upper extremities are grossly normal. FROM, nml pulses b/l. Multiple areas of ecchymosis along bilateral forearms and hands which patient states are chronic. New skin tears of bilateral elbows. Small area of erythema and edema noted to the dorsal aspect of the left hand which patient states is from a recent biopsy. LOWER EXTREMITIES: No pitting edema. FROM right lower extremity, nml pulses b/l. Patient unable to move left hip due to pain. No obvious deformities or pain at the distal left lower extremity. Areas of scattered ecchymosis noted throughout bilateral lower extremities in various stages. NEURO EXAM: Normal sensorium, cranial nerves II-XII grossly intact, normal speech, no facial droop,nogross weakness of arms, no gross weakness of legs. Gross sensation intact. No ataxia. Vital Signs: reviewed and remarkable Differential Diagnosis: Closed head injury, ICH, fracture, dislocation, dehydration, electrode abnormality, RUBIA, occult infection, syncope, mechanical fall, as well as others were considered MEDICAL DECISION MAKING: This is a 77-year-old female who presents from home following accidental mechanical fall. Patient with a history of unsteady gait, legal blindness, and weakness which puts her at risk for recurrent falls. Labs drawn and sent, IV established, EKG performed interpreted by me at bedside, x-rays performed and interpreted at bedside, patient sent for CT imaging. Patient found to have left hip dislocation. Other CTs and imaging reassuring. Given patient had eaten just prior to noon today for lunch, patient had to be monitored for many hours before conscious sedation could be performed and left hip reduced. Patient given IV Tylenol, several doses of IV fentanyl for pain control and gentle IV fluid rehydration as a precaution while awaiting reduction. Given prior episode of dislocation, history of weakness, hyponatremia, and patient's concern for ambulation and pain control, case discussed with hospitalist following closed reduction for additional evaluation and management. Patient's hyponatremia does appear stable compared to prior. Patient's anemia appears stable compared to prior additionally. Consultation(s): 1640: Discussed with Dr. Rey. 1924: Consent form signed at bedside. 1944: Conscious sedation performed by myself for closed reduction of left hip dislocation performed by Dr. Thompson. 2007: Vital signs stable, patient still with some soreness at the left hip although improved compared to preprocedure. Repeat x-rays show reduction of previously seen dislocation. 2010: Discussed with Dr. Vieyra for admission. ER Treatment Provided: See below Diagnostics Interpreted By Me: -ECG: Normal sinus at 64, normal axis, normal QRS and QTc, no acute ST/T wave changes -Cardiac Monitoring: An order was placed for continuous cardiac monitoring. The monitor shows a rate of 58 with sinus bradycardia rhythm. -Laboratory studies: As stated above and show below. -Imaging studies: xr pelvis/left hip: Dislocation of left prosthetic hip, no obvious fracture Triage Nursing Note Reviewed Prior/Outside Records Reviewed -prior reduction of left hip dislocation and orthopedic consultation Procedures: Procedural Sedation Indication: closed reduction of left hip dislocation. Total time: 16 minutes. Written consent was obtained after the risks and benefits were explained to the patient and , including, but not limited to aspiration, allergic reaction, breathing difficulties, cardiac complications, vomiting, pain, event recall, bleeding, and/or infection. Pre-sedation examination and paperwork completed. The patient was on 100% oxygen via NRB prior to the procedure. Continous end tidal CO2 monitoring, pulse oximetry, and cardiac monitoring were utilized. Suction, airway equipment, medications, respiratory equipment, and appropriate personnel were prepared prior to the initiation of the procedure. A time out was taken. Sedation was achieved utilizing 50 mg of propofol. After I observed the patient had reached the appropriate level of sedation the main procedure was performed without complication. Sedation was discontinued and the monitoring continued. The patient recovered quickly from the effects of the medication without complication or adverse event. Critical Care: [] Past Med/Surg History Medical History CAD (coronary artery disease) Chronic back pain Coronary artery disease s/p 5 stents in 2017 Degenerative disc disease Diastolic heart failure EF 58%, follows with [facility] cardio GERD (gastroesophageal reflux disease) diet controlled History of blood transfusion "with every surgery" Hypertension controlled, stable per pt Hypoglycemia with associated syncope, last syncopal episode colonoscopy fasting 8 yrs ago Hypothyroidism Myocardial Infarction (~2016) follows with Dr Jean Baptiste On anticoagulant therapy Raynaud's disease SIADH (syndrome of inappropriate ADH production) 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 no longer sees a neurologist. Systemic lupus follows with [facility] Rheumatology Surgical History History of cardiac cath (~2016) at [facility] -5 stents-2017 History of cataract surgery bilateral History of colonoscopy History of esophagogastroduodenoscopy (EGD) History of heart artery stent (~2017) x5 stents (at [facility]) History of open reduction and internal fixation (ORIF) procedure right wrist History of tonsillectomy History of total hip arthroplasty left Hx of vaginal hysterectomy S/P lumbar fusion x2 Family History Other No family history of adverse response to anesthesia Social History Smoking Status: Former smoker Tobacco Type: Cigarettes Cigarettes Per Day: 6-8; Smoking End Date: 1993; Second Hand Exposure: No; Do You Dip or Chew Tobacco: No; Hx Alcohol Use: Yes Alcohol type: wine Hx Substance Use: No Preferred Language: Khmer Communication Ability: Effective Visual Impairment: No Limitations Hearing Ability: Normal [employer]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 Beliefs That Will Affect Care: None marital status: Current Living Situation: Spouse Current Living Situation Comment: Lives at home with current occupational status: retired Other Information That Helps Us Care for You: No Feels Safe at Home: Yes Safety Concerns: Feels Safe At This Time Assistive Devices: Glasses, Hearing Aid - Bilateral and Walker Allergies Allergies Allergy/AdvReac Type Severity Reaction Status Date / Time venlafaxine Allergy Mild RASH Verified 02/02/23 17:38 Sulfa (Sulfonamide Allergy Unknown UNKNOWN Verified 02/02/23 17:38 Antibiotics) REACTION TO SULFA DRUGS tomato AdvReac Unknown Verified 02/02/23 17:38 Home Meds Home Medications Medication Instructions Recorded Confirmed atorvastatin 40 mg tablet 40 mg PO QAM 03/04/19 02/02/23 cholecalciferol (vitamin D3) 25 2,000 unit PO QAM 03/04/19 02/02/23 mcg (1,000 unit) capsule (Vitamin D3) clobetasol 0.05 % shampoo 1 applic topical DIRECTED PRN 03/04/19 02/02/23 for flare up of lupus docusate sodium 100 mg capsule 100 mg PO BID 03/04/19 02/02/23 (Colace) hydroxychloroquine 200 mg tablet 200 mg PO HS 03/04/19 02/02/23 (Plaquenil) lactobacillus combination no.4 3 3,000 mmu cells PO QAM 03/04/19 02/02/23 billion cell capsule (Probiotic) polyethylene glycol 3350 8.5 gram 17 g PO QAM 03/04/19 02/02/23 oral powder packet lisinopril 2.5 mg tablet 2.5 mg PO DAILY 08/14/22 02/02/23 metoprolol succinate 25 mg 25 mg PO DAILY 08/14/22 02/02/23 tablet,extended release 24 hr clobetasol 0.05 % topical cream 1 applic topical BID PRN .FLARES 12/31/22 02/02/23 clopidogrel 75 mg tablet 75 mg PO DAILY 12/31/22 02/02/23 cyclosporine 0.05 % eye drops in a 1 drp OPB Q12H 12/31/22 02/02/23 dropperette denosumab 60 mg/mL subcutaneous 60 mg subcut Q6M 12/31/22 02/02/23 syringe (Prolia) ferrous sulfate 325 mg (65 mg 325 mg PO QAM 12/31/22 02/02/23 iron) tablet fluticasone propionate 50 2 spray intranasal DAILY 12/31/22 02/02/23 mcg/actuation nasal spray,suspension furosemide 20 mg tablet 30 mg PO QAM 12/31/22 02/02/23 loratadine 10 mg tablet 10 mg PO DAILY 12/31/22 02/02/23 multivitamin 1 tab PO DAILY 12/31/22 02/02/23 nitroglycerin 0.4 mg sublingual 0.4 mg sublingual .DAILY/PRN PRN 12/31/22 02/02/23 tablet Chest Pain tacrolimus 0.1 % topical ointment 1 applic topical BID 12/31/22 02/02/23 zinc acetate 50 mg (zinc) capsule 50 mg PO QAM 12/31/22 02/02/23 levothyroxine 100 mcg tablet 100 mcg PO DAILY 02/02/23 02/02/23 (Synthroid) Previous Rx's Medication Instructions Recorded aspirin 81 mg tablet,delayed 81 mg PO DAILY #1 tab 08/15/22 release amlodipine 2.5 mg tablet 2.5 mg PO DAILY #20 tabs 02/03/23 amoxicillin 875 mg-potassium 1 tab PO BIDM 4 days #8 tabs 02/03/23 clavulanate 125 mg tablet doxycycline hyclate 100 mg capsule 100 mg PO Q12H 4 days #8 caps 02/03/23 Results & Data (ED) Vital Signs Vital Signs - 24 hr 02/02/23 19:26 02/02/23 19:36 02/02/23 19:36 Pulse Rate 63 64 Pulse Rate [Right Brachial] Respiratory Rate 20 Respiratory Effort / Characteristics Respiratory Depth Normal Blood Pressure [Left Arm] 157/82 H Blood Pressure Mean [Left Arm] Pulse Oximetry 100 100 100 Oxygen Delivery Method Room Air Room Air Nasal Cannula Oxygen Flow Rate 0 8 End-Tidal CO2 End Tidal CO2 (18-54mmHg) 22 02/02/23 19:44 02/02/23 19:50 02/02/23 19:55 Pulse Rate Pulse Rate [Right Brachial] 57 L 59 L 58 L Respiratory Rate 18 18 18 Respiratory Effort / Characteristics Non-Labored Spontaneous Non-Labored Spontaneous Non-Labored Spontaneous Respiratory Depth Normal Normal Normal Blood Pressure [Left Arm] 135/74 119/67 148/79 H Blood Pressure Mean [Left Arm] 94 84 102 Pulse Oximetry 100 100 100 Oxygen Delivery Method Nasal Cannula Room Air Room Air Oxygen Flow Rate 2 End-Tidal CO2 29 25 End Tidal CO2 (18-54mmHg) 02/02/23 20:04 02/02/23 20:35 02/02/23 21:14 Pulse Rate Pulse Rate [Right Brachial] 58 L 55 L 81 Respiratory Rate 18 16 19 Respiratory Effort / Characteristics Respiratory Depth Blood Pressure [Left Arm] 149/85 H 170/87 H 170/87 H Blood Pressure Mean [Left Arm] 106 114 114 Pulse Oximetry 98 93 96 Oxygen Delivery Method Room Air Room Air Room Air Oxygen Flow Rate End-Tidal CO2 End Tidal CO2 (18-54mmHg) Laboratory Data 02/02/23 14:41 02/02/23 14:41 Lab Results 02/02/23 02/02/23 02/02/23 Range/Units 14:41 14:41 14:41 WBC 3.26 L (4.8-10.8) K/ul RBC 3.59 L (4.20-5.40) M/uL Hgb 10.9 L (12.0-16.0) g/dl Hct 31.2 L (37.0-47.0) % MCV 86.9 (80.0-100.0) fL MCH 30.4 (25.0-34.0) pg MCHC 34.9 (32.0-36.0) g/dL RDW Std Deviation 45.5 (36.4-46.3) fL RDW Coeff of [place] 14.4 (11.5-14.5) % Plt Count 234 (130-400) K/uL MPV 9.4 (9.4-12.4) fL Immature Gran % (Auto) 0.3 % Neut % (Auto) 67.2 % Lymph % (Auto) 16.0 % [place] % (Auto) 15.3 % Eos % (Auto) 0.3 % Baso % (Auto) 0.9 % Neut # (Auto) 2.19 (1.40-6.50) K/uL Lymph # (Auto) 0.52 L (1.2-3.4) K/uL [place] # (Auto) 0.50 (0.11-0.59) K/uL Eos # (Auto) 0.01 (0-0.50) K/uL Baso # (Auto) 0.03 (0-0.2) K/uL Immature Gran # (Auto) 0.01 (0.01-0.20) K/uL ESR 16 (0-30) mm/hr Sodium 127 L (136-145) mmol/L Potassium 4.3 (3.5-5.1) mmol/L Chloride 93 L (98-107) mmol/L Carbon Dioxide 29 (21-32) mmol/L Anion Gap 5 (3-11) BUN 16 (6-23) mg/dl Creatinine 0.65 (0.6-1.2) mg/dl Est Cr Clr Drug Dosing 58.9 ml/min Est GFR ( Amer) 100.7 ml/min Est GFR (Non-Af Amer) 86.8 ml/min BUN/Creatinine Ratio 24.6 H (10-20) Glucose 79 (70-99(Fasting)) mg/dl Calcium 8.6 (8.5-10.1) mg/dl Total Bilirubin 0.4 (0.2-1.0) mg/dl AST 36 (13-39) U/L ALT 15 (7-52) U/L Alkaline Phosphatase 47 (34-104) U/L C-Reactive Protein < 0.50 (0-0.5) mg/dl Total Protein 6.9 (6.0-8.3) gm/dl Albumin 4.0 (3.4-5.0) gm/dl Globulin 2.9 (2.5-4.0) gm/dl Albumin/Globulin Ratio 1.4 (0.9-2) Urine Color Urine Appearance (Clear) Urine pH (4.5-7.5) Ur Specific [place] (1.000-1.030) Urine Protein (Negative) Urine Glucose (UA) (Negative) Urine Ketones (Negative) Urine Blood (Negative) Urine Nitrite (Negative) Urine Bilirubin (Negative) Urine Urobilinogen (Negative) Ur Leukocyte Esterase (Negative) Urine WBC (Auto) (0-5) /hpf Urine RBC (Auto) (0-4) /hpf U Hyaline Cast (Auto) (0-5) /lpf U Epithel Cells (Auto) (0-5) /lpf Urine Bacteria (Auto) (Negative) SARS-CoV-2, RNA, NAAT (NEGATIVE) 02/02/23 02/02/23 Range/Units 14:47 17:36 WBC (4.8-10.8) K/ul RBC (4.20-5.40) M/uL Hgb (12.0-16.0) g/dl Hct (37.0-47.0) % MCV (80.0-100.0) fL MCH (25.0-34.0) pg MCHC (32.0-36.0) g/dL RDW Std Deviation (36.4-46.3) fL RDW Coeff of [place] (11.5-14.5) % Plt Count (130-400) K/uL MPV (9.4-12.4) fL Immature Gran % (Auto) % Neut % (Auto) % Lymph % (Auto) % [place] % (Auto) % Eos % (Auto) % Baso % (Auto) % Neut # (Auto) (1.40-6.50) K/uL Lymph # (Auto) (1.2-3.4) K/uL [place] # (Auto) (0.11-0.59) K/uL Eos # (Auto) (0-0.50) K/uL Baso # (Auto) (0-0.2) K/uL Immature Gran # (Auto) (0.01-0.20) K/uL ESR (0-30) mm/hr Sodium (136-145) mmol/L Potassium (3.5-5.1) mmol/L Chloride (98-107) mmol/L Carbon Dioxide (21-32) mmol/L Anion Gap (3-11) BUN (6-23) mg/dl Creatinine (0.6-1.2) mg/dl Est Cr Clr Drug Dosing ml/min Est GFR ( Amer) ml/min Est GFR (Non-Af Amer) ml/min BUN/Creatinine Ratio (10-20) Glucose (70-99(Fasting)) mg/dl Calcium (8.5-10.1) mg/dl Total Bilirubin (0.2-1.0) mg/dl AST (13-39) U/L ALT (7-52) U/L Alkaline Phosphatase (34-104) U/L C-Reactive Protein (0-0.5) mg/dl Total Protein (6.0-8.3) gm/dl Albumin (3.4-5.0) gm/dl Globulin (2.5-4.0) gm/dl Albumin/Globulin Ratio (0.9-2) Urine Color Yellow Urine Appearance Clear (Clear) Urine pH 8.0 H (4.5-7.5) Ur Specific [place] 1.006 (1.000-1.030) Urine Protein Negative (Negative) Urine Glucose (UA) Negative (Negative) Urine Ketones Negative (Negative) Urine Blood Negative (Negative) Urine Nitrite Positive A (Negative) Urine Bilirubin Negative (Negative) Urine Urobilinogen Negative (Negative) Ur Leukocyte Esterase Trace H (Negative) Urine WBC (Auto) 1-5 (0-5) /hpf Urine RBC (Auto) 0-4 (0-4) /hpf U Hyaline Cast (Auto) 1-5 (0-5) /lpf U Epithel Cells (Auto) 0-5 (0-5) /lpf Urine Bacteria (Auto) 1+ H (Negative) SARS-CoV-2, RNA, NAAT NEGATIVE (NEGATIVE) Administered Medications Discontinued Medications Amlodipine Besylate (Amlodipine Besylate 5 Mg Tab) 2.5 mg PO BID KIRSTEN Stop: 03/04/23 22:49 Last Admin: 02/03/23 08:06 Dose: 2.5 mg Documented By: Admin: 02/03/23 00:17 Dose: 2.5 mg Documented By: MATHIEU Amoxicillin/Clavulanate Potassium (Amoxicillin/Clavulanate 500 Mg Tab) 1 tab PO BIDM [facility] Stop: 02/10/23 07:59 Last Admin: 02/03/23 08:08 Dose: 1 tab Documented By: SUNG Amoxicillin/Clavulanate Potassium (Amoxicillin/Clavulanate 875 Mg Tab) 1 tab PO BIDM [facility] Stop: 02/10/23 16:59 Last Admin: 02/03/23 17:55 Dose: 1 tab Documented By: SUNG Aspirin (Aspirin 81 Mg Ectab) 81 mg PO DAILY [facility] Stop: 03/05/23 08:59 Last Admin: 02/03/23 08:09 Dose: 81 mg Documented By: SUNG Atorvastatin Calcium (Atorvastatin 40 Mg Tab) 40 mg PO QAM [facility] Stop: 03/05/23 08:59 Last Admin: 02/03/23 08:13 Dose: 40 mg Documented By: SUNG Clopidogrel Bisulfate (Clopidogrel Bisulfate 75 Mg Tab) 75 mg PO DAILY [facility] Stop: 03/05/23 08:59 Last Admin: 02/03/23 08:13 Dose: 75 mg Documented By: SUNG Docusate Sodium (Docusate Sodium 100 Mg Cap) 100 mg PO BID [facility] Stop: 03/04/23 22:49 Last Admin: 02/03/23 08:19 Dose: 100 mg Documented By: Admin: 02/03/23 00:18 Dose: 100 mg Documented By: MATHIEU Doxycycline Hyclate (Doxycycline Hyclate 100 Mg Cap) 100 mg PO Q12H [facility] Stop: 02/10/23 05:59 Last Admin: 02/03/23 17:49 Dose: 100 mg Documented By: Admin: 02/03/23 05:43 Dose: 100 mg Documented By: MATHIEU Fentanyl Citrate (Fentanyl Citrate 100 Mcg/2 Ml Vial) 25 mcg IV Q15M PRN PRN Reason: Pain Stop: 02/16/23 16:04 Last Admin: 02/02/23 20:46 Dose: 25 mcg Documented By: Admin: 02/02/23 19:35 Dose: 25 mcg Documented By: Admin: 02/02/23 18:11 Dose: 25 mcg Documented By: Admin: 02/02/23 16:18 Dose: 25 mcg Documented By: CRISTA Ferrous Sulfate (Ferrous Sulfate 325 Mg Tab) 325 mg PO QAM KIRSTEN Stop: 03/05/23 08:59 Last Admin: 02/03/23 08:14 Dose: 325 mg Documented By: SUNG Fluticasone Propionate (Fluticasone Propionate Na Spr 16 Gm Btl) 2 sprays NA DAILY KIRSTEN Stop: 03/05/23 08:59 Last Admin: 02/03/23 08:11 Dose: 2 sprays Documented By: SUNG Furosemide (Furosemide 20 Mg Tab) 30 mg PO QAM KIRSTEN Stop: 03/05/23 08:59 Last Admin: 02/03/23 08:09 Dose: 30 mg Documented By: SUNG Heparin Sodium (Porcine) (Heparin Sod 5,000 Unit/0.5 Ml Vial) 5,000 units SQ Q12 KIRSTEN Stop: 03/05/23 08:59 Last Admin: 02/03/23 08:19 Dose: 5,000 units Documented By: SUNG Hydroxychloroquine Sulfate (Hydroxychloroquine Sulfate 200 Mg Tab) 200 mg PO HS KIRSTEN Stop: 03/04/23 22:49 Last Admin: 02/03/23 00:18 Dose: 200 mg Documented By: MATHIEU Sodium Chloride (Nss) 250 mls @ 999 mls/hr IV .Q16M ONE Stop: 02/02/23 14:26 Last Infusion: 02/02/23 15:15 Dose: 0 mls/hr Documented By: Admin: 02/02/23 14:38 Dose: 999 mls/hr Documented By: CRISTA Acetaminophen 750 mg/ EMPTY (BAG) 75 mls @ 300 mls/hr IV NOW STA Stop: 02/02/23 14:12 Last Infusion: 02/02/23 15:15 Dose: 0 mls/hr Documented By: Admin: 02/02/23 15:07 Dose: 300 mls/hr Documented By: CRISTA Sodium Chloride (Nss 1000ml) 1,000 mls @ 125 mls/hr IV .Q8H KIRSTEN Stop: 03/04/23 16:59 Last Infusion: 02/02/23 22:35 Dose: 0 mls/hr Documented By: JOSEPH(2) Admin: 02/02/23 17:21 Dose: 125 mls/hr Documented By: APOLINAR Sodium Chloride (Nss 1000ml) 1,000 mls @ 75 mls/hr IV .[id number] KIRSTEN Stop: 03/04/23 22:49 Last Admin: 02/03/23 14:08 Dose: 75 mls/hr Documented By: Infusion: 02/03/23 12:45 Dose: 75 mls/hr Documented By: Admin: 02/02/23 23:25 Dose: 75 mls/hr Documented By: MATHIEU Lactobacillus Acidophilus (Advanced Probiotic 1250 Mg Capsule) 2 cap PO QAM KIRSTEN Stop: 03/05/23 08:59 Last Admin: 02/03/23 08:14 Dose: 2 cap Documented By: SUNG Levothyroxine Sodium ([facility]othyroxine S[facility] 100 Mcg Tablet) [facility]: 03/05/23 06:29 Last Admin: 02/03/23 05:43 Dose: 100 mcg Documented By: MATHIEU Lisinopril (Lisinopril 2.5 Mg Tab) 2.5 mg PO DAILY [facility] Stop: 03/05/23 08:59 Last Admin: 02/03/23 08:15 Dose: 2.5 mg Documented By: SUNG Loratadine (Loratadine 10 Mg Tab) 10 mg PO DAILY [facility] Stop: 03/05/23 08:59 Last Admin: 02/03/23 08:14 Dose: 10 mg Documented By: SUNG Metoprolol Succinate (Metoprolol Succ 25mg Ext Rel Tab) 25 mg PO DAILY [facility] Stop: 03/05/23 08:59 Last Admin: 02/03/23 08:15 Dose: 25 mg Documented By: SUNG Misrandianeous (Tacrolimus Ointment: Order Awaiting Action) 1 each N/A QS [facility] Stop: 03/05/23 07:59 Last Admin: 02/03/23 08:31 Dose: Not Given Documented By: SUNG Andreaaneous (Cyclosporine 0.05%: Order Awaiting Action) 1 each N/A QS [facility] Stop: 03/05/23 07:59 Last Admin: 02/03/23 08:31 Dose: Not Given Documented By: SUNG Multivitamins (Multivitamin Tab) 1 tab PO DAILY KIRSTEN Stop: 03/05/23 08:59 Last Admin: 02/03/23 08:14 Dose: 1 tab Documented By: SUNG Oxycodone HCl (Oxycodone Hcl Ir 5 Mg Tab (Immediate Release)) 5 mg PO Q6H PRN PRN Reason: Pain Stop: 04/01/23 22:49 Last Admin: 02/03/23 00:17 Dose: 5 mg Documented By: MATHIEU Polyethylene Glycol (Polyethylene (Miralax) 17 Gm Pack) 17 gm PO QAM KIRSTEN Stop: 03/05/23 08:59 Last Admin: 02/03/23 08:18 Dose: 17 gm Documented By: SUNG Propofol (Propofol Iv Emulsion 10 Mg/Ml 20 Ml Vial) 20 mg IV NOW STA Stop: 02/02/23 19:27 Last Admin: 02/02/23 19:41 Dose: 50 mg Documented By: LOU Co-signed By: PAT Vitamin D (Cholecalciferol 1,000 Units 25 Mcg Tab) 2,000 units PO QAM KIRSTEN Stop: 03/05/23 08:59 Last Admin: 02/03/23 08:27 Dose: 2,000 units Documented By: SUNG Zinc Sulfate (Zinc Sulfate 220 Mg Capsule) 220 mg PO QAM KIRSTEN Stop: 03/05/23 08:59 Last Admin: 02/03/23 08:14 Dose: 220 mg Documented By: SUNG Imaging Data Radiologist's Impression: Cervical Spine CT 02/02/23 14:11 CT OF THE CERVICAL SPINE WITHOUT CONTRAST CLINICAL HISTORY: trauma COMPARISON STUDY: Cervical spine CT July 01, 2020. TECHNIQUE: Helical axial images of the cervical spine were obtained without IV contrast. Sagittal and coronal reconstructions were viewed. Automated exposure control was utilized for the study. A dose lowering technique was utilized adhering to the principles of ALARA. FINDINGS: Reversal of the cervical lordosis with anterolisthesis of C3 on C4 has not significantly changed since prior exam. There is no acute cervical spine fra cture. Severe multilevel degenerative changes are present. There are old fractures of the posterior left first and second ribs as well as the distal left clavicle. There is no prevertebral edema. IMPRESSION: No acute cervical spine fracture or subluxation. ACT 112: Negative or not required by law. Electronically signed by: Christian Zambrano M.D. 02/02/2023 4:15 PM Chest X-Ray 02/02/23 14:11 XR chest 1V portable CLINICAL HISTORY: trauma COMPARISON STUDY: Chest radiograph December 31, 2022. FINDINGS: Skin folds project over the chest. There is no pneumothorax or pleural effusion. There is chronic deformity of the distal left clavicle. Cardiomediastinal silhouette is stable. No consolidation is present. There is no evidence for pulmonary edema. An old left-sided rib fracture is present. Postoperative findings within the lumbar spine are partially imaged. IMPRESSION: No acute cardiopulmonary findings. No significant change in appearance of the chest. ACT 112: Negative or not required by law. Electronically signed by: Christian Zambrano M.D. 02/02/2023 3:33 PM Elbow X-Ray 02/02/23 14:11 XR elbow RT min 3V routine CLINICAL HISTORY: trauma COMPARISON: None FINDINGS: Alignment of the right elbow is anatomic. There is no acute fracture. There is no evidence for a joint effusion. No osseous lesion. Minimal calcific densities project of the distal triceps. IMPRESSION: No fracture. No evidence for a right elbow joint effusion. ACT 112: Negative or not required by law. Electronically signed by: Christian Zambrano M.D. 02/02/2023 3:[address] 02/02/23 14:11 CT OF THE HEAD WITHOUT CONTRAST CLINICAL HISTORY: trauma COMPARISON STUDY: MRI of the brain July 12, 2017. Head CT July 01, 2020. TECHNIQUE: Helical axial images of the head were obtained without IV contrast. Automated exposure control was utilized for the study. A dose lowering technique was utilized adhering to the principles of ALARA. FINDINGS: No acute intracranial hemorrhage, midline shift or mass effect is present. The ventricular system is unremarkable. The basal cisterns are patent. No extra-axial collections are present. There are no findings to suggest acute dural sinus thrombosis or acute territorial infarct. White matter hypodensity suggests small vessel disease. There has been no significant change in appearance of the brain. There is no acute calvarial fracture. Bilateral mastoid air cells are partially opacified. This is unchanged. IMPRESSION: 1. No acute intracranial findings. 2. No acute calvarial fracture. ACT 112: Negative or not required by law. Electronically signed by: Christian Zambrano M.D. 02/02/2023 4:09 PM Hip/Pelvis X-Ray 02/02/23 14:11 XR hip LT 2V w pelvis CLINICAL HISTORY: trauma COMPARISON: Left hip radiographs December 31, 2022 and fluoroscopic images of the left hip January 01, 2023. FINDINGS: Note is made of superior anterior dislocation of the femoral component of the left hip arthroplasty with respect to the acetabular cup. No fractures are identified. Sacroiliac joints and symphysis pubis are intact. Postoperative findings within the lumbar spine are partially imaged. IMPRESSION: Dislocated femoral component of the left hip arthroplasty. No fractures. ACT 112: Negative or not required by law. Electronically signed by: Christian Zambrano M.D. 02/02/2023 3:22 PM Shoulder X-Ray 02/02/23 14:11 XR shoulder RT min 2V routine CLINICAL HISTORY: trauma COMPARISON: Chest radiograph December 31, 2022. FINDINGS: Alignment of the right shoulder is in anatomic. There is no acute fracture. Moderate AC joint osteoarthritis is present. IMPRESSION: 1. No acute fracture or dislocation within the right shoulder. 2. Moderate right AC joint osteoarthritis. ACT 112: Negative or not required by law. Electronically signed by: Christian Zambrano M.D. 02/02/2023 3:23 PM Hip X-Ray 02/02/23 19:45 XR hip LT min 2V CLINICAL HISTORY: Post reduction. COMPARISON: Left hip radiographs performed earlier today. FINDINGS: Alignment of the left hip arthroplasty is anatomic post reduction. There is no fracture. IMPRESSION: Anatomic alignment of the left hip arthroplasty post reduction. No fracture. ACT 112: Negative or not required by law. Electronically signed by: Christian Zambrano M.D. 02/02/2023 7:57 PM Discharge Plan Visit Data Chief Complaint: Hip Pain Stated Complaint: FALL, L HIP PAIN ED Provider: Kathy Willis Discharge Problem: CHI (closed head injury), Hyponatremia, Fall, Dislocation of hip, left, closed Patient Disposition: Admitted As Inpatient Discharge Instructions Interventions: ED Discharge Assessment Last Done: 02/02/23 22:36
[2023-02-02 15:17] LABS: Basophils # (auto) 0.03 K/uL (0-0.2); Basophils % (auto) 0.9 %; Eosinophils # (auto) 0.01 K/uL (0-0.50); Eosinophils % (auto) 0.3 %; Hematocrit (blood only) 31.2 % (37.0-47.0); Hemoglobin 10.9 g/dl (12.0-16.0); Immature Granulocytes # (auto) 0.01 K/uL (0.01-0.20); Immature Granulocytes % (auto) 0.3 %; Lymphocytes # (auto) 0.52 K/uL (1.2-3.4); Mean Corpuscular Hemoglobin 30.4 pg (25.0-34.0); Mean Corpuscular Hgb Conc 34.9 g/dL (32.0-36.0); Mean Corpuscular Volume 86.9 fL (80.0-100.0); Mean Platelet Volume 9.4 fL (9.4-12.4); Monocytes % (auto) 15.3 %; Neutrophils # (auto) 2.19 K/uL (1.40-6.50); Neutrophils % (auto) 67.2 %; Platelet Count 234 K/uL (130-400); RDW Coefficient of Variation 14.4 % (11.5-14.5); RDW Standard Deviation 45.5 fL (36.4-46.3); Red Blood Count 3.59 M/uL (4.20-5.40); White Blood Count 3.26 K/ul (4.8-10.8)
[2023-02-02 15:22] LABS: Alanine Aminotransferase 15 U/L (7-52); Albumin Globulin Ratio 1.4 (0.9-2); Alkaline Phosphatase 47 U/L (34-104); Anion Gap 5 (3-11); Aspartate Aminotransferase 36 U/L (13-39); BUN Creatinine Ratio 24.6 (10-20); Bilirubin,Total 0.4 mg/dl (0.2-1.0); Blood Urea Nitrogen 16 mg/dl (6-23); Calcium 8.6 mg/dl (8.5-10.1); Carbon Dioxide 29 mmol/L (21-32); Chloride 93 mmol/L (98-107); Creatinine Clr Calc Pharmacy 58.9 ml/min; Est GFR (African American) 100.7 ml/min; Est GFR (Non-African American) 86.8 ml/min; Globulin 2.9 gm/dl (2.5-4.0); Glucose 79 mg/dl (70-99(Fasting)); Potassium 4.3 mmol/L (3.5-5.1); Sodium 127 mmol/L (136-145); Total Protein 6.9 gm/dl (6.0-8.3)
--- NOTE | 2023-02-02 15:23 | XRay Report ---
XR hip LT 2V w pelvis CLINICAL HISTORY: trauma COMPARISON: Left hip radiographs December 31, 2022 and fluoroscopic images of the left hip December 192022. FINDINGS: Note is made of superior anterior dislocation of the femoral component of the left hip art hroplasty with respect to the acetabular cup. No fractures are identified. Sacroiliac joints and symp hysis pubis are intact. Postoperative findings within the lumbar spine are partially imaged. IMPRESSION: Dislocated femoral component of the left hip arthroplasty. No fractures. ACT 112: Negative or not required by law. Electronically signed by: Christian Zambrano M.D. 02/02/2023 3:22 PM
--- NOTE | 2023-02-02 15:24 | XRay Report ---
XR shoulder RT min 2V routine CLINICAL HISTORY: trauma COMPARISON: Chest radiograph December 31, 2022. FINDINGS: Alignment of the right shoulder is in anatomic. There is no acute fracture. Moderate AC rehana int osteoarthritis is present. IMPRESSION: 1. No acute fracture or dislocation within the right shoulder. 2. Moderate right AC joint osteoarthritis. ACT 112: Negative or not required by law. Electronically signed by: Christian Zambrano M.D. 02/02/2023 3:23 PM
--- NOTE | 2023-02-02 15:25 | XRay Report ---
XR elbow RT min 3V routine CLINICAL HISTORY: trauma COMPARISON: None FINDINGS: Alignment of the right elbow is anatomic. There is no acute fracture. There is no evidence for a joint effusion. No osseous lesion. Minimal calcific densities project of the distal triceps. IMPRESSION: No fracture. No evidence for a right elbow joint effusion. ACT 112: Negative or not required by law. Electronically signed by: Christian aZmbrano M.D. 02/02/2023 3:24 PM
--- NOTE | 2023-02-02 15:34 | XRay Report ---
XR chest 1V portable CLINICAL HISTORY: trauma COMPARISON STUDY: Chest radiograph December 31, 2022. FINDINGS: Skin folds project over the chest. There is no pneumothorax or pleural effusion. There is c hronic deformity of the distal left clavicle. Cardiomediastinal silhouette is stable. No consolidatio n is present. There is no evidence for pulmonary edema. An old left-sided rib fracture is present. Po stoperative findings within the lumbar spine are partially imaged. IMPRESSION: No acute cardiopulmonary findings. No significant change in appearance of the chest. ACT 112: Negative or not required by law. Electronically signed by: Christian Zambrano M.D. 02/02/2023 3:33 PM
--- NOTE | 2023-02-02 16:11 | CT Scan Report ---
CT OF THE HEAD WITHOUT CONTRAST CLINICAL HISTORY: trauma COMPARISON STUDY: MRI of the brain July 12, 2017. Head CT July 01, 2020. TECHNIQUE: Helical axial images of the head were obtained without IV contrast. Automated exposure con trol was utilized for the study. A dose lowering technique was utilized adhering to the principles o f ALARA. FINDINGS: No acute intracranial hemorrhage, midline shift or mass effect is present. The ventricular system is unremarkable. The basal cisterns are patent. No extra-axial collections are present. There are no findings to suggest acute dural sinus thrombosis or acute territorial infarct. White matter hy podensity suggests small vessel disease. There has been no significant change in appearance of the br ain. There is no acute calvarial fracture. Bilateral mastoid air cells are partially opacified. This is unchanged. IMPRESSION: 1. No acute intracranial findings. 2. No acute calvarial fracture. ACT 112: Negative or not required by law. Electronically signed by: Christian Zambrano M.D. 02/02/2023 4:09 PM
--- NOTE | 2023-02-02 16:17 | CT Scan Report ---
CT OF THE CERVICAL SPINE WITHOUT CONTRAST CLINICAL HISTORY: trauma COMPARISON STUDY: Cervical spine CT July 01, 2020. TECHNIQUE: Helical axial images of the cervical spine were obtained without IV contrast. Sagittal a nd coronal reconstructions were viewed. Automated exposure control was utilized for the study. A do se lowering technique was utilized adhering to the principles of ALARA. FINDINGS: Reversal of the cervical lordosis with anterolisthesis of C3 on C4 has not significantly ch anged since prior exam. There is no acute cervical spine fracture. Severe multilevel degenerative tahir nges are present. There are old fractures of the posterior left first and second ribs as well as the distal left clavicle. There is no prevertebral edema. IMPRESSION: No acute cervical spine fracture or subluxation. ACT 112: Negative or not required by law. Electronically signed by: Christian Zambrano M.D. 02/02/2023 4:15 PM
[2023-02-02] MEDS: fentaNYL citrate PF 100 MCG/2 ML VIAL IV PRN ×4 (16:18→20:46)
[2023-02-02] MEDS ORDERED: SODIUM CHLORIDE 0.9% 1000ML 1,000 ML IV SCH (17:00)
[2023-02-02 18:17] LABS: C Reactive Protein < 0.50 mg/dl (0-0.5)
[2023-02-02] MEDS ORDERED: PROPOFOL IV EMULSION 10 MG/ML 20 ML VIAL IV STA (19:26)
--- NOTE | 2023-02-02 19:59 | XRay Report ---
XR hip LT min 2V CLINICAL HISTORY: Post reduction. COMPARISON: Left hip radiographs performed earlier today. FINDINGS: Alignment of the left hip arthroplasty is anatomic post reduction. There is no fracture. IMPRESSION: Anatomic alignment of the left hip arthroplasty post reduction. No fracture. ACT 112: Negative or not required by law. Electronically signed by: Christian Zambrano M.D. 02/02/2023 7:57 PM
--- NOTE | 2023-02-02 20:05 | Emergency Department Note ---
ED Visit Note Patient was seen and examined by myself. X-rays were reviewed and showed a superior left hip dislocation. This was relocated by myself at bedside with Dr. Willis performing sedation. Patient tolerated procedure well. Neurovascular intact. Was admitted to the hospitalist. Please see Dr. Vazquez's note for further management and care per Procedure Indication: Left hip dislocation performed by myself Verbal and written consent obtained. Risks and benefits were explained with the usual customary discussion. A time out was taken. Neurovascular examination before the procedure revealed intact. The left hip dislocation was reduced by placing the patient supine and applying inline traction on the ankle/femur with gentle external rotation. This resulted in an easy reduction without complication. Neurovascular examination after the procedure revealed intact. The patient had significant pain relief and tolerated the procedure well. X- rays were obtained and showed a relocation of the left hip dislocation without obvious fracture. .
[2023-02-02 21:22] LABS: Appearance Urine Clear (Clear); Bacteria Urine Automated 1+ (Negative); Bilirubin Urine Negative (Negative); Blood Urine Negative (Negative); Color Urine Yellow; Epithelial Cell Urine Auto 0-5 /lpf (0-5); Glucose Urine UA Negative (Negative); Ketones Urine Negative (Negative); Leukocyte Esterase Urine Trace (Negative); Nitrite Urine Positive (Negative); Protein Urine Negative (Negative); RBC Urine Automated 0-4 /hpf (0-4); Specific Gravity Urine 1.006 (1.000-1.030); Urobilinogen Urine Negative (Negative)
[2023-02-02] MEDS ORDERED: oxyCODONE HCL IR 5 MG TAB (IMMEDIATE RELEASE) PO PRN (22:50)
[2023-02-02] MEDS ORDERED: ACETAMINOPHEN 325 MG TAB PO PRN (22:50)
[2023-02-02] MEDS ORDERED: HYDROXYCHLOROQUINE SULFATE 200 MG TAB PO SCH (22:50)
[2023-02-02] MEDS ORDERED: POLYETHYLENE (MIRALAX) 17 GM PACK PO PRN (22:50)
[2023-02-02] MEDS ORDERED: CLOBETASOL 0.05% TOP PRN (22:50)
[2023-02-02] MEDS: SODIUM CHLORIDE 0.9% 1000ML 1,000 ML IV SCH (23:25)
--- NOTE | 2023-02-02 23:54 | History and Physical Report ---
DATE OF ADMISSION: 02/02/2023 CHIEF COMPLAINT: Status post fall with left hip dislocation. HISTORY OF PRESENT ILLNESS: This is a 77-year-old female with past medical history significant for SIADH, hypothyroidism, hyperlipidemia, history of reactive hypoglycemia, history of allergic rhinitis, chronic diastolic CHF, history of CAD status post stent to LAD, history of hypertension, legal blindness, history of renal artery occlusion, history of orthostatic hypotension, Raynaud disease, , constipation taking stool softeners, osteoporosis, SLE, generalized anxiety disorder, cachectic state, chronic anemia, past tobacco abuse, presents with a fall. The patient was trying to move chair from dinning room. 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 She struck her head and she was on the elbows, but no loss of consciousness and she was brought in here and imaging studies showed left hip dislocation. In the ER, she was given Diprivan and fentanyl and the got hip reduced, but the patient and does not feel comfortable to go home. ER also talked to the ortho on-call. The patient also had a nontraumatic left hip dislocation in December of this year and supposed to follow the ortho as an outpatient. It looks like she has left hip surgery in 2012. The patient to be monitored in the hospital. Consult ortho in the a.m. for further recommendations for recurrent dislocations and PT/OT. Currently, the patient is resting comfortably, but still not able to move her left leg because of pain.Hemodynamically stable. Denies any headache. She was feeling slightly dizzy in the morning and thinks that could be contributing to her fall today. She is legally blind, but able to move in her house because she knows the place and she generally does not use any cane. Somewhat hard of hearing. She always has runny nose and occasional cough. No sore throat. Appetite is okay. No difficulty swallowing. No chest pain, no shortness of breath, no nausea, no abdominal pain. She is constipated and uses stool softeners. Normal bladder movements. No rash. ALLERGIES: VENLAFAXINE, SULFA ANTIBIOTICS, TOMATO. PAST MEDICAL HISTORY: As mentioned above. PAST SURGICAL HISTORY: Colonoscopy, excision of breast lesion, single lumbar laminectomy, injection of lumbosacral spine, right partial mastectomy, L3-L5 lumbar spine surgery, repair of wrist fracture, total abdominal hysterectomy with removal of tubes, total hip replacement and prosthesis in December 2012. MEDICATIONS: The patient is on amlodipine 2.5 mg p.o. b.i.d., aspirin 81 mg p.o. daily, atorvastatin 40 mg p.o. daily, vitamin D 2000 units p.o. a.m., clobetasol 1 application topical p.r.n., Plavix 75 mg p.o. daily, cyclosporine one drop ophthalmic b.i.d., Colace 100 mg p.o. b.i.d., ferrous sulfate 325 mg p.o. a.m., Flonase 2 sprays intranasal daily, furosemide 30 mg p.o. a.m., Plaquenil 200 mg p.o. at bedtime, levothyroxine 100 mcg p.o. daily, lisinopril 2.5 mg p.o. daily, loratadine 10 mg p.o. daily, metoprolol succinate 25 mg p.o. daily, multivitamin 1 tablet p.o. daily, nitroglycerin 0.4 mg sublingual p.r.n., MiraLax 17 grams p.o. daily, probiotic 1 tablet p.o. daily, Prolia 60 mg subcutaneously q.6 months,tacrolimus one application topical b.i.d., zinc acetate 50 mg p.o. a.m. FAMILY HISTORY: Significant for daughter has endometrial cancer. Father has heart attack. Mother has lymphoma, thyroid cancer, uterine cancer. SOCIAL HISTORY: , former smoker, quit in 1985, smoked half pack a day for 15 years. Alcohol, rarely. No drug use. REVIEW OF SYSTEMS: As per HPI. Rest of the review of systems is negative. PHYSICAL EXAMINATION: GENERAL: The patient is thin and frail, not in acute distress. VITAL SIGNS: Temperature 36.6, pulse 81, respiratory rate 19, blood pressure 170/87, oxygen 96% on room air. HEENT: Pupils equal, round and reactive to light. Oral mucosa moist. NECK: No JVD, no neck masses. CARDIOVASCULAR: S1 and S2 heard. Regular rate and rhythm. No murmur, no gallop. RESPIRATORY SYSTEM: Normal AP diameter. No accessory muscle use. No wheezing, no crackles. ABDOMEN: Soft, bowel sounds present, nontender, no distention. CENTRAL NERVOUS SYSTEM: Alert and oriented. Speech is clear. Obeys simple commands. Painful movements of the left hip. EXTREMITIES: No edema, no erythema. Painful movement of the left hip. LABORATORY DATA: WBC 3.2, hemoglobin 10.9, hematocrit 31.2, platelets 234. ESR 16. Sodium 127, potassium 4.3, chloride 93, bicarb 29, BUN 16, creatinine 0.6, serum glucose 110, calcium 8.6, total bilirubin 0.4, AST 36, ALT 15, alkaline phosphatase 47. C-reactive protein less than 0.5. Urinalysis pending. SARS-CoV-2 rapid test negative. Hip x-ray, anatomic alignment of left hip arthroplasty post-reduction. No fracture. Shoulder x-ray of the right side, no acute fracture or dislocation of the right shoulder, moderate right AC joint osteoarthritis. Hip and pelvic x-ray, dislocated femoral component of the left hip arthroplasty. No fractures. CT of the head, no acute findings. Right elbow x-ray, no fractures, no acute findings. Chest x-ray, no acute findings. Cervical spine CT, no acute findings. EKG: Normal sinus rhythm at rate 64. No significant change was found. ASSESSMENT AND PLAN: This 77-year-old female presents with status post fall and left hip dislocation. 1. Mechanical fall, status post left hip dislocation, status post reduction .Recurrent dislocation was reduced last month in December. Pain control. Consult Ortho. PT, OT. Observe in the hospital. 2. History of systemic lupus erythematosus. Continue home Plaquenil. 3. Chronic anemia, hemoglobin 10.9, seems at baseline. Follow up with PCP. 4. Hyponatremia, history of SIADH. We will follow urine osmolality, urine sodium and serum osmolality. Getting gentle fluids. Monitor labs in a.m. Consult nephrology in the a.m. for further recommendation. 5. History of coronary artery disease, status post stent. History of myocardial infarction. On aspirin, Plavix, statin and beta maría. Currently stable. 6. History of hypertension: On metoprolol succinate, lisinopril, amlodipine and Lasix. Monitor the blood pressure. 7. History of chronic diastolic congestive heart failure, on Lasix. Currently, getting gentle fluids. Monitor for any volume overload. 8. Hyperlipidemia: On statin. 9. Chronic constipation, on stool softeners. 10. Deep venous thrombosis prophylaxis: Place on heparin subcutaneously. DISPOSITION: Observation in medical floor. PT/OT. Social service to help with discharge planning. Level 1 full code as per my discussion with her . Job ID: [id number] [email or web address]
[2023-02-03] MEDS: amLODIPine BESYLATE 5 MG TAB PO SCH ×2 (00:17→08:06)
[2023-02-03] MEDS: DOCUSATE SODIUM 100 MG CAP PO SCH ×2 (00:18→08:19)
[2023-02-03] MEDS: DOXYCYCLINE HYCLATE 100 MG CAP PO SCH ×2 (05:43→17:49)
[2023-02-03 05:59] LABS: Basophils # (auto) 0.03 K/uL (0-0.2); Eosinophils # (auto) 0.01 K/uL (0-0.50); Eosinophils % (auto) 0.3 %; Hematocrit (blood only) 27.9 % (37.0-47.0); Hemoglobin 9.7 g/dl (12.0-16.0); Immature Granulocytes # (auto) 0.01 K/uL (0.01-0.20); Immature Granulocytes % (auto) 0.3 %; Lymphocytes # (auto) 0.46 K/uL (1.2-3.4); Lymphocytes % (auto) 15.8 %; Mean Corpuscular Hemoglobin 30.1 pg (25.0-34.0); Mean Corpuscular Hgb Conc 34.8 g/dL (32.0-36.0); Mean Corpuscular Volume 86.6 fL (80.0-100.0); Mean Platelet Volume 9.1 fL (9.4-12.4); Monocytes # (auto) 0.48 K/uL (0.11-0.59); Monocytes % (auto) 16.5 %; Neutrophils # (auto) 1.92 K/uL (1.40-6.50); Neutrophils % (auto) 66.1 %; Platelet Count 199 K/uL (130-400); RDW Coefficient of Variation 14.6 % (11.5-14.5); RDW Standard Deviation 46.5 fL (36.4-46.3); Red Blood Count 3.22 M/uL (4.20-5.40); White Blood Count 2.91 K/ul (4.8-10.8)
[2023-02-03 06:08] LABS: BUN Creatinine Ratio 25.4 (10-20); Calcium 7.6 mg/dl (8.5-10.1); Creatinine Clr Calc Pharmacy 55.6 ml/min; Est GFR (African American) 103.9 ml/min; Est GFR (Non-African American) 89.7 ml/min; Potassium 4.2 mmol/L (3.5-5.1)
[2023-02-03] MEDS ORDERED: LEVOTHYROXINE SODIUM 100 MCG TABLET PO SCH (06:30)
--- NOTE | 2023-02-03 07:38 | Electrocardiogram Report ---
Test Reason : Blood Pressure : / mmHG Vent. Rate : 064 BPM Atrial Rate : 064 BPM P-R Int : 174 ms QRS Dur : 086 ms QT Int : 410 ms P-R-T Axes : 085 027 071 degrees QTc Int : 422 ms Normal sinus rhythm Low voltage QRS Borderline ECG When compared with ECG of 04-MAR-2019 14:15, No significant change was found Confirmed by Sukumar Wheeler ([id number]) on 02/03/2023 7:37:52 AM Referred By: REFERRED SELF Confirmed By:Brett Wheeler
[2023-02-03] MEDS ORDERED: AMOXICILLIN/CLAVULANATE 500 MG TAB PO SCH (08:00)
--- NOTE | 2023-02-03 08:21 | Hospitalist Progress Note ---
Date of Service February 03, 2023 Assessment & Plan (1) Fall: (2) Dislocation of hip, left, closed: (3) Hyponatremia: Plan This 77-year-old female presents with status post fall and left hip dislocation. 1. Mechanical fall, status post left hip dislocation, status post reduction. Recurrent dislocation was reduced last month in December. Pain control. Orthopedics consulted - likely will require revision total hip arthroplasty.will place patient into a knee immobilizer. She should wear the immobilizer at all times. Can remove for hygiene purposes. Weightbearing as tolerated. will order a cobalt level while she is inpatient to ensure she is not having any type of cobalt toxicity or [id number] reaction from her total hip. Any further work-up can be completed as an outpatient. Patient can follow-up with Dr. Rey as an outpatient to discuss treatment options. She can call [phone] for an appointment. PT, OT. Observe in the hospital. Possible UTI Possible cellulitis Patient recently had biopsy of skin lesion near left wrist region. Area is erythematous. possible developing cellulitis. Placed on Augmentin and doxy. U A came back positive. Possible UTI . U cultx positive for GNB - already On Augmentin, as above. Will follow cx. 2. History of systemic lupus erythematosus. Continue home Plaquenil. 3. Chronic anemia, hemoglobin 10.9, seems at baseline. Follow up with PCP. 4. Hyponatremia, history of SIADH. We will follow urine osmolality, urine sodium and serum osmolality. Getting gentle fluids. Monitor labs in a.m. Nephrology consulted - appreciate further recommendation. 5. History of coronary artery disease, status post stent. History of myocardial infarction. On aspirin, Plavix, statin and beta maría. Currently stable. 6. History of hypertension: On metoprolol succinate, lisinopril, amlodipine and Lasix. Monitor the blood pressure. 7. History of chronic diastolic congestive heart failure, on Lasix. Currently, getting gentle fluids. Monitor for any volume overload. 8. Hyperlipidemia: On statin. 9. Chronic constipation, on stool softeners. DVT prophylaxis: heparin subcutaneously. DISPOSITION: Observation in medical floor. PT/OT. Social service to help with discharge planning. Code: full code Admission and Anticipated Discharge Date Admission Date: February 02, 2023 Subjective Patient seen in follow-up after fall, hip dislocation, dizziness at home and history of hyponatremia Currently lying in bed, in no acute distress. No fevers chills chest pain shortness of breath. No abdominal pain, nausea vomiting. Seen by orthopedics, no intervention at this time, however most likely she will need surgical intervention as outpatient. Orthopedics recommends knee immobilizer, she should wear it at all times Nephrology also following for hyponatremia. Review of Systems Review of Systems: All systems reviewed & are unremarkable except as noted in Subjective Physical Exam Physical Exam: GENERAL:thin and frail elderly F, not in acute distress. HEENT: NC/AT. EOMI. Pupils equal, round and reactive to light. Oral mucosa moist. NECK: No JVD, no neck masses. CARDIOVASCULAR: S1 and S2 heard. Regular rate and rhythm. No murmur, no gallop. RESPIRATORY: Normal AP diameter. No accessory muscle use. No wheezing, no crackles. ABDOMEN: Soft, bowel sounds present, nontender, no distention. NEURO: Alert and oriented. Speech is clear. Obeys simple commands. EXTREMITIES: No edema, no erythema. Results & Data Results & Data Vital Signs (Past 12 Hours) Vital Signs Temp Pulse Pulse Pulse Resp BP Pulse Ox 02/03/23 07:47 36.7 C 70 18 112/68 94 02/03/23 00:18 61 127/74 02/02/23 22:40 36.5 C 62 18 157/82 H 100 02/02/23 22:36 02/02/23 22:20 60 18 117/67 100 02/02/23 21:53 63 16 124/55 L 96 02/02/23 21:14 81 19 170/87 H 96 02/02/23 20:35 55 L 16 170/87 H 93 O2 Del Method O2 Flow Rate 02/03/23 07:47 Room Air 02/03/23 00:18 02/02/23 22:40 Nasal Cannula 2 02/02/23 22:36 Nasal Cannula 2 02/02/23 22:20 Nasal Cannula 2 02/02/23 21:53 Nasal Cannula 2 02/02/23 21:14 Room Air 02/02/23 20:35 Room Air Laboratory Results 02/03/23 02/03/23 02/03/23 Range/Units 08:04 05:48 05:31 WBC (4.8-10.8) K/ul RBC (4.20-5.40) M/uL Hgb (12.0-16.0) g/dl Hct (37.0-47.0) % MCV (80.0-100.0) fL MCH (25.0-34.0) pg MCHC (32.0-36.0) g/dL RDW Std Deviation (36.4-46.3) fL RDW Coeff of [place] (11.5-14.5) % Plt Count (130-400) K/uL MPV (9.4-12.4) fL Immature Gran % (Auto) % Neut % (Auto) % Lymph % (Auto) % [place] % (Auto) % Eos % (Auto) % Baso % (Auto) % Neut # (Auto) (1.40-6.50) K/uL Lymph # (Auto) (1.2-3.4) K/uL [place] # (Auto) (0.11-0.59) K/uL Eos # (Auto) (0-0.50) K/uL Baso # (Auto) (0-0.2) K/uL Immature Gran # (Auto) (0.01-0.20) K/uL ESR (0-30) mm/hr Sodium 130 L (136-145) mmol/L Potassium 4.2 (3.5-5.1) mmol/L Chloride 101 (98-107) mmol/L Carbon Dioxide 24 (21-32) mmol/L Anion Gap 5 (3-11) BUN 15 (6-23) mg/dl Creatinine 0.59 L (0.6-1.2) mg/dl Est Cr Clr Drug Dosing 55.6 ml/min Est GFR ( Amer) 103.9 ml/min Est GFR (Non-Af Amer) 89.7 ml/min BUN/Creatinine Ratio 25.4 H (10-20) Glucose 77 (70-99(Fasting)) mg/dl POC Glucose 89 (70-99) mg/dl Osmolality (280-300) mOsm/kg Calcium 7.6 L (8.5-10.1) mg/dl Magnesium 2.0 (1.7-2.4) mg/dl Total Bilirubin (0.2-1.0) mg/dl AST (13-39) U/L ALT (7-52) U/L Alkaline Phosphatase (34-104) U/L C-Reactive Protein (0-0.5) mg/dl Total Protein (6.0-8.3) gm/dl Albumin (3.4-5.0) gm/dl Globulin (2.5-4.0) gm/dl Albumin/Globulin Ratio (0.9-2) Urine Color Urine Appearance (Clear) Urine pH (4.5-7.5) Ur Specific [place] (1.000-1.030) Urine Protein (Negative) Urine Glucose (UA) (Negative) Urine Ketones (Negative) Urine Blood (Negative) Urine Nitrite (Negative) Urine Bilirubin (Negative) Urine Urobilinogen (Negative) Ur Leukocyte Esterase (Negative) Urine WBC (Auto) (0-5) /hpf Urine RBC (Auto) (0-4) /hpf U Hyaline Cast (Auto) (0-5) /lpf U Epithel Cells (Auto) (0-5) /lpf Urine Bacteria (Auto) (Negative) Urine Osmolality (500-800) mOsm/kg Ur Random Sodium mmol/L [place] Pending SARS-CoV-2, RNA, NAAT (NEGATIVE) 02/03/23 02/03/23 02/03/23 Range/Units 05:31 05:31 01:30 WBC 2.91 L (4.8-10.8) K/ul RBC 3.22 L (4.20-5.40) M/uL Hgb 9.7 L (12.0-16.0) g/dl Hct 27.9 L (37.0-47.0) % MCV 86.6 (80.0-100.0) fL MCH 30.1 (25.0-34.0) pg MCHC 34.8 (32.0-36.0) g/dL RDW Std Deviation 46.5 H (36.4-46.3) fL RDW Coeff of [place] 14.6 H (11.5-14.5) % Plt Count 199 (130-400) K/uL MPV 9.1 L (9.4-12.4) fL Immature Gran % (Auto) 0.3 % Neut % (Auto) 66.1 % Lymph % (Auto) 15.8 % [place] % (Auto) 16.5 % Eos % (Auto) 0.3 % Baso % (Auto) 1.0 % Neut # (Auto) 1.92 (1.40-6.50) K/uL Lymph # (Auto) 0.46 L (1.2-3.4) K/uL [place] # (Auto) 0.48 (0.11-0.59) K/uL Eos # (Auto) 0.01 (0-0.50) K/uL Baso # (Auto) 0.03 (0-0.2) K/uL Immature Gran # (Auto) 0.01 (0.01-0.20) K/uL ESR (0-30) mm/hr Sodium (136-145) mmol/L Potassium (3.5-5.1) mmol/L Chloride (98-107) mmol/L Carbon Dioxide (21-32) mmol/L Anion Gap (3-11) BUN (6-23) mg/dl Creatinine (0.6-1.2) mg/dl Est Cr Clr Drug Dosing ml/min Est GFR ( Amer) ml/min Est GFR (Non-Af Amer) ml/min BUN/Creatinine Ratio (10-20) Glucose (70-99(Fasting)) mg/dl POC Glucose (70-99) mg/dl Osmolality 271 L (280-300) mOsm/kg Calcium (8.5-10.1) mg/dl Magnesium (1.7-2.4) mg/dl Total Bilirubin (0.2-1.0) mg/dl AST (13-39) U/L ALT (7-52) U/L Alkaline Phosphatase (34-104) U/L C-Reactive Protein (0-0.5) mg/dl Total Protein (6.0-8.3) gm/dl Albumin (3.4-5.0) gm/dl Globulin (2.5-4.0) gm/dl Albumin/Globulin Ratio (0.9-2) Urine Color Urine Appearance (Clear) Urine pH (4.5-7.5) Ur Specific [place] (1.000-1.030) Urine Protein (Negative) Urine Glucose (UA) (Negative) Urine Ketones (Negative) Urine Blood (Negative) Urine Nitrite (Negative) Urine Bilirubin (Negative) Urine Urobilinogen (Negative) Ur Leukocyte Esterase (Negative) Urine WBC (Auto) (0-5) /hpf Urine RBC (Auto) (0-4) /hpf U Hyaline Cast (Auto) (0-5) /lpf U Epithel Cells (Auto) (0-5) /lpf Urine Bacteria (Auto) (Negative) Urine Osmolality (500-800) mOsm/kg Ur Random Sodium 38 mmol/L WB [place] SARS-CoV-2, RNA, NAAT (NEGATIVE) 02/03/23 02/03/23 02/02/23 Range/Units 01:30 00:10 17:36 WBC (4.8-10.8) K/ul RBC (4.20-5.40) M/uL Hgb (12.0-16.0) g/dl Hct (37.0-47.0) % MCV (80.0-100.0) fL MCH (25.0-34.0) pg MCHC (32.0-36.0) g/dL RDW Std Deviation (36.4-46.3) fL RDW Coeff of [place] (11.5-14.5) % Plt Count (130-400) K/uL MPV (9.4-12.4) fL Immature Gran % (Auto) % Neut % (Auto) % Lymph % (Auto) % [place] % (Auto) % Eos % (Auto) % Baso % (Auto) % Neut # (Auto) (1.40-6.50) K/uL Lymph # (Auto) (1.2-3.4) K/uL [place] # (Auto) (0.11-0.59) K/uL Eos # (Auto) (0-0.50) K/uL Baso # (Auto) (0-0.2) K/uL Immature Gran # (Auto) (0.01-0.20) K/uL ESR (0-30) mm/hr Sodium (136-145) mmol/L Potassium (3.5-5.1) mmol/L Chloride (98-107) mmol/L Carbon Dioxide (21-32) mmol/L Anion Gap (3-11) BUN (6-23) mg/dl Creatinine (0.6-1.2) mg/dl Est Cr Clr Drug Dosing ml/min Est GFR ( Amer) ml/min Est GFR (Non-Af Amer) ml/min BUN/Creatinine Ratio (10-20) Glucose (70-99(Fasting)) mg/dl POC Glucose 119 H (70-99) mg/dl Osmolality (280-300) mOsm/kg Calcium (8.5-10.1) mg/dl Magnesium (1.7-2.4) mg/dl Total Bilirubin (0.2-1.0) mg/dl AST (13-39) U/L ALT (7-52) U/L Alkaline Phosphatase (34-104) U/L C-Reactive Protein (0-0.5) mg/dl Total Protein (6.0-8.3) gm/dl Albumin (3.4-5.0) gm/dl Globulin (2.5-4.0) gm/dl Albumin/Globulin Ratio (0.9-2) Urine Color Urine Appearance (Clear) Urine pH (4.5-7.5) Ur Specific [place] (1.000-1.030) Urine Protein (Negative) Urine Glucose (UA) (Negative) Urine Ketones (Negative) Urine Blood (Negative) Urine Nitrite (Negative) Urine Bilirubin (Negative) Urine Urobilinogen (Negative) Ur Leukocyte Esterase (Negative) Urine WBC (Auto) (0-5) /hpf Urine RBC (Auto) (0-4) /hpf U Hyaline Cast (Auto) (0-5) /lpf U Epithel Cells (Auto) (0-5) /lpf Urine Bacteria (Auto) (Negative) Urine Osmolality 369 L (500-800) mOsm/kg Ur Random Sodium mmol/L WB [place] SARS-CoV-2, RNA, NAAT NEGATIVE (NEGATIVE) 02/02/23 02/02/23 02/02/23 Range/Units 14:47 14:41 14:41 WBC (4.8-10.8) K/ul RBC (4.20-5.40) M/uL Hgb (12.0-16.0) g/dl Hct (37.0-47.0) % MCV (80.0-100.0) fL MCH (25.0-34.0) pg MCHC (32.0-36.0) g/dL RDW Std Deviation (36.4-46.3) fL RDW Coeff of [place] (11.5-14.5) % Plt Count (130-400) K/uL MPV (9.4-12.4) fL Immature Gran % (Auto) % Neut % (Auto) % Lymph % (Auto) % [place] % (Auto) % Eos % (Auto) % Baso % (Auto) % Neut # (Auto) (1.40-6.50) K/uL Lymph # (Auto) (1.2-3.4) K/uL [place] # (Auto) (0.11-0.59) K/uL Eos # (Auto) (0-0.50) K/uL Baso # (Auto) (0-0.2) K/uL Immature Gran # (Auto) (0.01-0.20) K/uL ESR 16 (0-30) mm/hr Sodium 127 L (136-145) mmol/L Potassium 4.3 (3.5-5.1) mmol/L Chloride 93 L (98-107) mmol/L Carbon Dioxide 29 (21-32) mmol/L Anion Gap 5 (3-11) BUN 16 (6-23) mg/dl Creatinine 0.65 (0.6-1.2) mg/dl Est Cr Clr Drug Dosing 58.9 ml/min Est GFR ( Amer) 100.7 ml/min Est GFR (Non-Af Amer) 86.8 ml/min BUN/Creatinine Ratio 24.6 H (10-20) Glucose 79 (70-99(Fasting)) mg/dl POC Glucose (70-99) mg/dl Osmolality (280-300) mOsm/kg Calcium 8.6 (8.5-10.1) mg/dl Magnesium (1.7-2.4) mg/dl Total Bilirubin 0.4 (0.2-1.0) mg/dl AST 36 (13-39) U/L ALT 15 (7-52) U/L Alkaline Phosphatase 47 (34-104) U/L C-Reactive Protein < 0.50 (0-0.5) mg/dl Total Protein 6.9 (6.0-8.3) gm/dl Albumin 4.0 (3.4-5.0) gm/dl Globulin 2.9 (2.5-4.0) gm/dl Albumin/Globulin Ratio 1.4 (0.9-2) Urine Color Yellow Urine Appearance Clear (Clear) Urine pH 8.0 H (4.5-7.5) Ur Specific [place] 1.006 (1.000-1.030) Urine Protein Negative (Negative) Urine Glucose (UA) Negative (Negative) Urine Ketones Negative (Negative) Urine Blood Negative (Negative) Urine Nitrite Positive A (Negative) Urine Bilirubin Negative (Negative) Urine Urobilinogen Negative (Negative) Ur Leukocyte Esterase Trace H (Negative) Urine WBC (Auto) 1-5 (0-5) /hpf Urine RBC (Auto) 0-4 (0-4) /hpf U Hyaline Cast (Auto) 1-5 (0-5) /lpf U Epithel Cells (Auto) 0-5 (0-5) /lpf Urine Bacteria (Auto) 1+ H (Negative) Urine Osmolality (500-800) mOsm/kg Ur Random Sodium mmol/L WB [place] SARS-CoV-2, RNA, NAAT (NEGATIVE) 02/02/23 Range/Units 14:41 WBC 3.26 L (4.8-10.8) K/ul RBC 3.59 L (4.20-5.40) M/uL Hgb 10.9 L (12.0-16.0) g/dl Hct 31.2 L (37.0-47.0) % MCV 86.9 (80.0-100.0) fL MCH 30.4 (25.0-34.0) pg MCHC 34.9 (32.0-36.0) g/dL RDW Std Deviation 45.5 (36.4-46.3) fL RDW Coeff of [place] 14.4 (11.5-14.5) % Plt Count 234 (130-400) K/uL MPV 9.4 (9.4-12.4) fL Immature Gran % (Auto) 0.3 % Neut % (Auto) 67.2 % Lymph % (Auto) 16.0 % [place] % (Auto) 15.3 % Eos % (Auto) 0.3 % Baso % (Auto) 0.9 % Neut # (Auto) 2.19 (1.40-6.50) K/uL Lymph # (Auto) 0.52 L (1.2-3.4) K/uL [place] # (Auto) 0.50 (0.11-0.59) K/uL Eos # (Auto) 0.01 (0-0.50) K/uL Baso # (Auto) 0.03 (0-0.2) K/uL Immature Gran # (Auto) 0.01 (0.01-0.20) K/uL ESR (0-30) mm/hr Sodium (136-145) mmol/L Potassium (3.5-5.1) mmol/L Chloride (98-107) mmol/L Carbon Dioxide (21-32) mmol/L Anion Gap (3-11) BUN (6-23) mg/dl Creatinine (0.6-1.2) mg/dl Est Cr Clr Drug Dosing ml/min Est GFR ( Amer) ml/min Est GFR (Non-Af Amer) ml/min BUN/Creatinine Ratio (10-20) Glucose (70-99(Fasting)) mg/dl POC Glucose (70-99) mg/dl Osmolality (280-300) mOsm/kg Calcium (8.5-10.1) mg/dl Magnesium (1.7-2.4) mg/dl Total Bilirubin (0.2-1.0) mg/dl AST (13-39) U/L ALT (7-52) U/L Alkaline Phosphatase (34-104) U/L C-Reactive Protein (0-0.5) mg/dl Total Protein (6.0-8.3) gm/dl Albumin (3.4-5.0) gm/dl Globulin (2.5-4.0) gm/dl Albumin/Globulin Ratio (0.9-2) Urine Color Urine Appearance (Clear) Urine pH (4.5-7.5) Ur Specific [place] (1.000-1.030) Urine Protein (Negative) Urine Glucose (UA) (Negative) Urine Ketones (Negative) Urine Blood (Negative) Urine Nitrite (Negative) Urine Bilirubin (Negative) Urine Urobilinogen (Negative) Ur Leukocyte Esterase (Negative) Urine WBC (Auto) (0-5) /hpf Urine RBC (Auto) (0-4) /hpf U Hyaline Cast (Auto) (0-5) /lpf U Epithel Cells (Auto) (0-5) /lpf Urine Bacteria (Auto) (Negative) Urine Osmolality (500-800) mOsm/kg Ur Random Sodium mmol/L WB [place] SARS-CoV-2, RNA, NAAT (NEGATIVE) Medications Administered Current Inpatient Medications Acetaminophen (Acetaminophen 325 Mg Tab) 650 mg PO Q4H PRN PRN Reason: pain/fever Stop: 03/04/23 22:49 Amlodipine Besylate (Amlodipine Besylate 5 Mg Tab) 2.5 mg PO BID [facility] Stop: 03/04/23 22:49 Last Admin: 02/03/23 08:06 Dose: 2.5 mg Amoxicillin/Clavulanate Potassium (Amoxicillin/Clavulanate 500 Mg Tab) 1 tab PO BIDM [facility] Stop: 02/10/23 07:59 Last Admin: 02/03/23 08:08 Dose: 1 tab Aspirin (Aspirin 81 Mg Ectab) 81 mg PO DAILY [facility] Stop: 03/05/23 08:59 Last Admin: 02/03/23 08:09 Dose: 81 mg Atorvastatin Calcium (Atorvastatin 40 Mg Tab) 40 mg PO QAM [facility] Stop: 03/05/23 08:59 Last Admin: 02/03/23 08:13 Dose: 40 mg Clopidogrel Bisulfate (Clopidogrel Bisulfate 75 Mg Tab) 75 mg PO DAILY [facility] Stop: 03/05/23 08:59 Last Admin: 02/03/23 08:13 Dose: 75 mg Docusate Sodium (Docusate Sodium 100 Mg Cap) 100 mg PO BID [facility] Stop: 03/04/23 22:49 Last Admin: 02/03/23 08:19 Dose: 100 mg Doxycycline Hyclate (Doxycycline Hyclate 100 Mg Cap) 100 mg PO Q12H [facility] Stop: 02/10/23 05:59 Last Admin: 02/03/23 05:43 Dose: 100 mg Ferrous Sulfate (Ferrous Sulfate 325 Mg Tab) [facility] [place] [facility]: 03/05/23 08:59 Last Admin: 02/03/23 08:14 Dose: 325 mg Fluticasone Propionate (Fluticasone Propionate Na Spr 16 Gm Btl) 2 sprays NA DAILY [facility] Stop: 03/05/23 08:59 Last Admin: 02/03/23 08:11 Dose: 2 sprays Furosemide (Furosemide 20 Mg Tab) 30 mg PO QAM [facility] Stop: 03/05/23 08:59 Last Admin: 02/03/23 08:09 Dose: 30 mg Heparin Sodium (Porcine) (Heparin Sod 5,000 Unit/0.5 Ml Vial) 5,000 units SQ Q12 [facility] Stop: 03/05/23 08:59 Last Admin: 02/03/23 08:19 Dose: 5,000 units Hydroxychloroquine Sulfate (Hydroxychloroquine Sulfate 200 Mg Tab) 200 mg PO HS [facility] Stop: 03/04/23 22:49 Last Admin: 02/03/23 00:18 Dose: 200 mg Sodium Chloride (Nss 1000ml) 1,000 mls @ 75 mls/hr IV .[id number] [facility] Stop: 03/04/23 22:49 Last Admin: 02/02/23 23:25 Dose: 75 mls/hr Lactobacillus Acidophilus (Advanced Probiotic 1250 Mg Capsule) 2 cap PO QAM [facility] Stop: 03/05/23 08:59 Last Admin: 02/03/23 08:14 Dose: 2 cap Levothyroxine Sodium (Levothyroxine Sodium 100 Mcg Tablet) 100 mcg PO DAILYBB [facility] Stop: 03/05/23 06:29 Last Admin: 02/03/23 05:43 Dose: 100 mcg Lisinopril (Lisinopril 2.5 Mg Tab) 2.5 mg PO DAILY [facility] Stop: 03/05/23 08:59 Last Admin: 02/03/23 08:15 Dose: 2.5 mg Loratadine (Loratadine 10 Mg Tab) 10 mg PO DAILY [facility] Stop: 03/05/23 08:59 Last Admin: 02/03/23 08:14 Dose: 10 mg Metoprolol Succinate (Metoprolol Succ 25mg Ext Rel Tab) 25 mg PO DAILY [facility] Stop: 03/05/23 08:59 Last Admin: 02/03/23 08:15 Dose: 25 mg Miscellaneous (Tacrolimus Ointment: Order Awaiting Action) 1 each N/A QS [facility] Stop: 03/05/23 07:59 Miscellaneous (Cyclosporine 0.05%: Order Awaiting Action) 1 each N/A QS [facility] Stop: 03/05/23 07:59 Multivitamins (Multivitamin Tab) 1 tab PO DAILY [facility] Stop: 03/05/23 08:59 Last Admin: 02/03/23 08:14 Dose: 1 tab Oxycodone HCl (Oxycodone Hcl Ir 5 Mg Tab (Immediate Release)) 5 mg PO Q6H PRN PRN Reason: Pain Stop: 02/16/23 22:49 Last Admin: 02/03/23 00:17 Dose: 5 mg Polyethylene Glycol (Polyethylene (Miralax) 17 Gm Pack) 17 gm PO DAILY PRN PRN Reason: Constipation Stop: 03/04/23 22:49 Polyethylene Glycol (Polyethylene (Miralax) 17 Gm Pack) 17 gm PO [facility] Stop: 03/05/23 08:59 Last Admin: 02/03/23 08:18 Dose: 17 gm Vitamin D (Cholecalciferol 1,000 Units 25 Mcg Tab) 2,000 units PO [facility] Stop: 03/05/23 08:59 Zinc Sulfate (Zinc Sulfate 220 Mg Capsule) 220 mg PO [facility] Stop: 03/05/23 08:59 Last Admin: 02/03/23 08:14 Dose: 220 mg
--- NOTE | 2023-02-03 08:32 | Communication Note ---
Date of Service: February 03, 2023 Addendum to yaneth yarbrough p. Patient recently had biopsy of skin lesion near left wrist region. Area is erytematous. possible developing cellulitis. Placed on Au gmentin and doxy. UA came back positive. Possible UTI . On Augmentin. Will follow cx. Thanks
[2023-02-03] MEDS ORDERED: HEPARIN SOD 5,000 UNIT/0.5 ML VIAL SQ SCH (09:00)
[2023-02-03] MEDS ORDERED: ATORVASTATIN 40 MG TAB PO SCH (09:00)
[2023-02-03] MEDS ORDERED: ADVANCED PROBIOTIC 1250 MG CAPSULE PO SCH (09:00)
[2023-02-03] MEDS ORDERED: FERROUS SULFATE 325 MG TAB PO SCH (09:00)
[2023-02-03] MEDS ORDERED: FLUTICASONE PROPIONATE NA SPR 16 GM BTL SCH (09:00)
[2023-02-03] MEDS ORDERED: LORATADINE 10 MG TAB PO SCH (09:00)
[2023-02-03] MEDS ORDERED: CHOLECALCIFEROL 1,000 UNITS 25 MCG TAB PO SCH (09:00)
[2023-02-03] MEDS ORDERED: METOPROLOL SUCC 25MG EXT REL TAB PO SCH (09:00)
[2023-02-03] MEDS ORDERED: FUROSEMIDE 20 MG TAB PO SCH (09:00)
[2023-02-03] MEDS ORDERED: lisinopril 2.5 MG TAB PO SCH (09:00)
[2023-02-03] MEDS ORDERED: MULTIVITAMIN TAB PO SCH (09:00)
[2023-02-03] MEDS ORDERED: CLOPIDOGREL BISULFATE 75 MG TAB PO SCH (09:00)
[2023-02-03] MEDS ORDERED: ASPIRIN 81 MG ECTAB PO SCH (09:00)
[2023-02-03] MEDS ORDERED: POLYETHYLENE (MIRALAX) 17 GM PACK PO SCH (09:00)
[2023-02-03] MEDS ORDERED: ZINC SULFATE 220 MG CAPSULE PO SCH (09:00)
--- NOTE | 2023-02-03 09:17 | Orthopedic Consultation ---
Date of Consultation February 03, 2023 Assessment & Plan (1) Dislocation of hip, left, closed: Patient suffered a recurrent left total hip dislocation. Discussed case with Dr. Rey. This is something that likely will require revision total hip arthroplasty. We will place patient into a knee immobilizer. She should wear the immobilizer at all times. Can remove for hygiene purposes. Weightbearing as tolerated. We will order a cobalt level while she is inpatient to ensure she is not having any type of cobalt toxicity or [id number] reaction from her total hip. Any further work-up can be completed as an outpatient. Patient can follow-up with Dr. Rey as an outpatient to discuss treatment options. She can call [phone] for an appointment. Orthopedics will sign off at this time. Thank you for this consult. Please call with any questions or concerns. History of Present Illness Reason for Consultation: Recurrent left hip dislocation Requesting Physician: Dr. Vieyra Attending Physician: Cosme Gamboa MD History of Present Illness 77-year-old female with past medical history significant for SIADH, hypothyroidism, hyperlipidemia, history of reactive hypoglycemia, history of allergic rhinitis, chronic diastolic CHF, history of CAD status post stent to LAD, history of hypertension, legal blindness, history of renal artery occlusion, history of orthostatic hypotension, Raynaud disease, , constipation taking stool softeners, osteoporosis, SLE, generalized anxiety disorder, cachectic state, chronic anemia, past tobacco abuse, presents with a fall. The patient was trying to move chair from dinning room and suffered a fall. She was brought to the emergency department and found to have a dislocated left total hip. This was reduced in the ER. She previously was admitted about 4 weeks ago for left total hip dislocation which was reduced successfully. Left total hip was done about 12 years ago. Prior to this first dislocation she had no issues with her hip. Currently her pain is well controlled. She has very little discomfort in her hip. Patient has no other current complaints. Denies chest pain, shortness of breath, lightheadedness/dizziness, nausea/vomiting. Allergies Allergy/AdvReac Type Severity Reaction Status Date / Time venlafaxine Allergy Mild RASH Verified 02/02/23 17:38 Sulfa (Sulfonamide Allergy Unknown UNKNOWN Verified 02/02/23 17:38 Antibiotics) REACTION TO SULFA DRUGS tomato AdvReac Unknown Verified 02/02/23 17:38 Home Medications Medication Instructions Recorded Confirmed Type atorvastatin 40 mg tablet 40 mg PO QAM 03/04/19 02/02/23 History cholecalciferol (vitamin D3) 25 2,000 unit PO QAM 03/04/19 02/02/23 History mcg (1,000 unit) capsule (Vitamin D3) clobetasol 0.05 % shampoo 1 applic topical DIRECTED PRN 03/04/19 02/02/23 History for flare up of lupus docusate sodium 100 mg capsule 100 mg PO BID 03/04/19 02/02/23 History (Colace) hydroxychloroquine 200 mg tablet 200 mg PO HS 03/04/19 02/02/23 History (Plaquenil) lactobacillus combination no.4 3 3,000 mmu cells PO QAM 03/04/19 02/02/23 Histo ry billion cell capsule (Probiotic) polyethylene glycol 3350 8.5 gram 17 g PO QAM 03/04/19 02/02/23 History oral powder packet amlodipine 2.5 mg tablet 2.5 mg PO BID 08/14/22 02/02/23 History lisinopril 2.5 mg tablet 2.5 mg PO DAILY 08/14/22 02/02/23 History metoprolol succinate 25 mg 25 mg PO DAILY 08/14/22 02/02/23 History tablet,extended release 24 hr aspirin 81 mg tablet,delayed 81 mg PO DAILY #1 tab 08/15/22 02/02/23 Rx release clobetasol 0.05 % topical cream 1 applic topical BID PRN .FLARES 12/31/22 02/02/23 History clopidogrel 75 mg tablet 75 mg PO DAILY 12/31/22 02/02/23 History cyclosporine 0.05 % eye drops in a 1 drp OPB Q12H 12/31/22 02/02/23 History dropperette denosumab 60 mg/mL subcutaneous 60 mg subcut Q6M 12/31/22 02/02/23 History syringe (Prolia) ferrous sulfate 325 mg (65 mg 325 mg PO QAM 12/31/22 02/02/23 History iron) tablet fluticasone propionate 50 2 spray intranasal DAILY 12/31/22 02/02/23 History mcg/actuation nasal spray,suspension furosemide 20 mg tablet 30 mg PO QAM 12/31/22 02/02/23 History loratadine 10 mg tablet 10 mg PO DAILY 12/31/22 02/02/23 History multivitamin 1 tab PO DAILY 12/31/22 02/02/23 History nitroglycerin 0.4 mg sublingual 0.4 mg sublingual .DAILY/PRN PRN 12/31/22 02/02/23 History tablet Chest Pain tacrolimus 0.1 % topical ointment 1 applic topical BID 12/31/22 02/02/23 History zinc acetate 50 mg (zinc) capsule 50 mg PO QAM 12/31/22 02/02/23 History levothyroxine 100 mcg tablet 100 mcg PO DAILY 02/02/23 02/02/23 History (Synthroid) Patient History Medical History CAD (coronary artery disease) Chronic back pain Coronary artery disease s/p 5 stents in 2017 Degenerative disc disease Diastolic heart failure EF 58%, follows with [facility] cardio GERD (gastroesophageal reflux disease) diet controlled History of blood transfusion "with every surgery" Hypertension controlled, stable per pt Hypoglycemia with associated syncope, last syncopal episode colonoscopy fasting 8 yrs ago Hypothyroidism Myocardial Infarction (~2016) follows with Dr Jean Baptiste On anticoagulant therapy Raynaud's disease SIADH (syndrome of inappropriate ADH production) 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 no longer sees a neurologist. Systemic lupus follows with [facility] Rheumatology Surgical History History of cardiac cath (~2016) at [facility] -5 stents-2017 History of cataract surgery bilateral History of colonoscopy History of esophagogastroduodenoscopy (EGD) History of heart artery stent (~2017) x5 stents (at [facility]) History of open reduction and internal fixation (ORIF) procedure right wrist History of tonsillectomy History of total hip arthroplasty left Hx of vaginal hysterectomy S/P lumbar fusion x2 Family History Other No family history of adverse response to anesthesia Social History Smoking Status: Former smoker Tobacco Type: Cigarettes Cigarettes Per Day: 6-8; Smoking End Date: 1993; Second Hand Exposure: No; Do You Dip or Chew Tobacco: No; Hx Alcohol Use: Yes Alcohol type: wine Hx Substance Use: No Preferred Language: P[place] Communication Ability: Effective Visual Impairment: No Limitations Hearing Ability: Normal Telecasting Engineer Required: No Beliefs That Will Affect Care: None marital status: Current Living Situation: Spouse Current Living Situation Comment: Lives at home with current occupational status: retired Other Information That Helps Us Care for You: No Feels Safe at Home: Yes Safety Concerns: Feels Safe At This Time Assistive Devices: Glasses, Hearing Aid - Bilateral and Walker Review of Systems Review of Systems: All systems reviewed & are unremarkable except as noted in HPI & below Physical Exam Constitutional: WD/WN, vitals as above Eyes: PERRL, conjunctivae normal, anicteric sclerae Respiratory: normal respiratory effort; no respiratory distress Cardiovascular: Rate/Rhythm: regular rate and regular rhythm Musculoskeletal: Left hip: No tenderness about the hip. Patient has no pain with gentle logroll. Leg lengths are equal. Compartments are soft and nontender. Distally neurovascular status and sensation grossly intact. Skin: no rashes, warm and dry Neurologic: Speech / Cognition: normal speech Psychiatric: A+Ox3, euthymic affect Results & Data Vital Signs (Past 12 Hours) Vital Signs Temp Pulse Pulse Pulse Resp BP Pulse Ox 02/03/23 07:47 36.7 C 70 18 112/68 94 02/03/23 00:18 61 127/74 02/02/23 22:40 36.5 C 62 18 157/82 H 100 02/02/23 22:36 02/02/23 22:20 60 18 117/67 100 02/02/23 21:53 63 16 124/55 L 96 O2 Del Method O2 Flow Rate 02/03/23 07:47 Room Air 02/03/23 00:18 02/02/23 22:40 Nasal Cannula 2 02/02/23 22:36 Nasal Cannula 2 02/02/23 22:20 Nasal Cannula 2 02/02/23 21:53 Nasal Cannula 2 Laboratory Results Lab Results 02/02/23 02/02/23 02/02/23 Range/Units 14:41 14:41 14:41 WBC 3.26 L (4.8-10.8) K/ul RBC 3.59 L (4.20-5.40) M/uL Hgb 10.9 L (12.0-16.0) g/dl Hct 31.2 L (37.0-47.0) % MCV 86.9 (80.0-100.0) fL MCH 30.4 (25.0-34.0) pg MCHC 34.9 (32.0-36.0) g/dL RDW Std Deviation 45.5 (36.4-46.3) fL RDW Coeff of [place] 14.4 (11.5-14.5) % Plt Count 234 (130-400) K/uL MPV 9.4 (9.4-12.4) fL Immature Gran % (Auto) 0.3 % Neut % (Auto) 67.2 % Lymph % (Auto) 16.0 % [place] % (Auto) 15.3 % Eos % (Auto) 0.3 % Baso % (Auto) 0.9 % Neut # (Auto) 2.19 (1.40-6.50) K/uL Lymph # (Auto) 0.52 L (1.2-3.4) K/uL [place] # (Auto) 0.50 (0.11-0.59) K/uL Eos # (Auto) 0.01 (0-0.50) K/uL Baso # (Auto) 0.03 (0-0.2) K/uL Immature Gran # (Auto) 0.01 (0.01-0.20) K/uL ESR 16 (0-30) mm/hr Sodium 127 L (136-145) mmol/L Potassium 4.3 (3.5-5.1) mmol/L Chloride 93 L (98-107) mmol/L Carbon Dioxide 29 (21-32) mmol/L Anion Gap 5 (3-11) BUN 16 (6-23) mg/dl Creatinine 0.65 (0.6-1.2) mg/dl Est Cr Clr Drug Dosing 58.9 ml/min Est GFR ( Amer) 100.7 ml/min Est GFR (Non-Af Amer) 86.8 ml/min BUN/Creatinine Ratio 24.6 H (10-20) Glucose 79 (70-99(Fasting)) mg/dl POC Glucose (70-99) mg/dl Osmolality (280-300) mOsm/kg Calcium 8.6 (8.5-10.1) mg/dl Magnesium (1.7-2.4) mg/dl Total Bilirubin 0.4 (0.2-1.0) mg/dl AST 36 (13-39) U/L ALT 15 (7-52) U/L Alkaline Phosphatase 47 (34-104) U/L C-Reactive Protein < 0.50 (0-0.5) mg/dl Total Protein 6.9 (6.0-8.3) gm/dl Albumin 4.0 (3.4-5.0) gm/dl Globulin 2.9 (2.5-4.0) gm/dl Albumin/Globulin Ratio 1.4 (0.9-2) Urine Color Urine Appearance (Clear) Urine pH (4.5-7.5) Ur Specific [place] (1.000-1.030) Urine Protein (Negative) Urine Glucose (UA) (Negative) Urine Ketones (Negative) Urine Blood (Negative) Urine Nitrite (Negative) Urine Bilirubin (Negative) Urine Urobilinogen (Negative) Ur Leukocyte Esterase (Negative) Urine WBC (Auto) (0-5) /hpf Urine RBC (Auto) (0-4) /hpf U Hyaline Cast (Auto) (0-5) /lpf U Epithel Cells (Auto) (0-5) /lpf Urine Bacteria (Auto) (Negative) Urine Osmolality (500-800) mOsm/kg Ur Random Sodium mmol/L SARS-CoV-2, RNA, NAAT (NEGATIVE) 02/02/23 02/02/23 02/03/23 Range/Units 14:47 17:36 00:10 WBC (4.8-10.8) K/ul RBC (4.20-5.40) M/uL Hgb (12.0-16.0) g/dl Hct (37.0-47.0) % MCV (80.0-100.0) fL MCH (25.0-34.0) pg MCHC (32.0-36.0) g/dL RDW Std Deviation (36.4-46.3) fL RDW Coeff of [place] (11.5-14.5) % Plt Count (130-400) K/uL MPV (9.4-12.4) fL Immature Gran % (Auto) % Neut % (Auto) % Lymph % (Auto) % [place] % (Auto) % Eos % (Auto) % Baso % (Auto) % Neut # (Auto) (1.40-6.50) K/uL Lymph # (Auto) (1.2-3.4) K/uL [place] # (Auto) (0.11-0.59) K/uL Eos # (Auto) (0-0.50) K/uL Baso # (Auto) (0-0.2) K/uL Immature Gran # (Auto) (0.01-0.20) K/uL ESR (0-30) mm/hr Sodium (136-145) mmol/L Potassium (3.5-5.1) mmol/L Chloride (98-107) mmol/L Carbon Dioxide (21-32) mmol/L Anion Gap (3-11) BUN (6-23) mg/dl Creatinine (0.6-1.2) mg/dl Est Cr Clr Drug Dosing ml/min Est GFR ( Amer) ml/min Est GFR (Non-Af Amer) ml/min BUN/Creatinine Ratio (10-20) Glucose (70-99(Fasting)) mg/dl POC Glucose 119 H (70-99) mg/dl Osmolality (280-300) mOsm/kg Calcium (8.5-10.1) mg/dl Magnesium (1.7-2.4) mg/dl Total Bilirubin (0.2-1.0) mg/dl AST (13-39) U/L ALT (7-52) U/L Alkaline Phosphatase (34-104) U/L C-Reactive Protein (0-0.5) mg/dl Total Protein (6.0-8.3) gm/dl Albumin (3.4-5.0) gm/dl Globulin (2.5-4.0) gm/dl Albumin/Globulin Ratio (0.9-2) Urine Color Yellow Urine Appearance Clear (Clear) Urine pH 8.0 H (4.5-7.5) Ur Specific [place] 1.006 (1.000-1.030) Urine Protein Negative (Negative) Urine Glucose (UA) Negative (Negative) Urine Ketones Negative (Negative) Urine Blood Negative (Negative) Urine Nitrite Positive A (Negative) Urine Bilirubin Negative (Negative) Urine Urobilinogen Negative (Negative) Ur Leukocyte Esterase Trace H (Negative) Urine WBC (Auto) 1-5 (0-5) /hpf Urine RBC (Auto) 0-4 (0-4) /hpf U Hyaline Cast (Auto) 1-5 (0-5) /lpf U Epithel Cells (Auto) 0-5 (0-5) /lpf Urine Bacteria (Auto) 1+ H (Negative) Urine Osmolality (500-800) mOsm/kg Ur Random Sodium mmol/L SARS-CoV-2, RNA, NAAT NEGATIVE (NEGATIVE) 02/03/23 02/03/23 02/03/23 Range/Units 01:30 01:30 05:31 WBC (4.8-10.8) K/ul RBC (4.20-5.40) M/uL Hgb (12.0-16.0) g/dl Hct (37.0-47.0) % MCV (80.0-100.0) fL MCH (25.0-34.0) pg MCHC (32.0-36.0) g/dL RDW Std Deviation (36.4-46.3) fL RDW Coeff of [place] (11.5-14.5) % Plt Count (130-400) K/uL MPV (9.4-12.4) fL Immature Gran % (Auto) % Neut % (Auto) % Lymph % (Auto) % [place] % (Auto) % Eos % (Auto) % Baso % (Auto) % Neut # (Auto) (1.40-6.50) K/uL Lymph # (Auto) (1.2-3.4) K/uL [place] # (Auto) (0.11-0.59) K/uL Eos # (Auto) (0-0.50) K/uL Baso # (Auto) (0-0.2) K/uL Immature Gran # (Auto) (0.01-0.20) K/uL ESR (0-30) mm/hr Sodium (136-145) mmol/L Potassium (3.5-5.1) mmol/L Chloride (98-107) mmol/L Carbon Dioxide (21-32) mmol/L Anion Gap (3-11) BUN (6-23) mg/dl Creatinine (0.6-1.2) mg/dl Est Cr Clr Drug Dosing ml/min Est GFR ( Amer) ml/min Est GFR (Non-Af Amer) ml/min BUN/Creatinine Ratio (10-20) Glucose (70-99(Fasting)) mg/dl POC Glucose (70-99) mg/dl Osmolality 271 L (280-300) mOsm/kg Calcium (8.5-10.1) mg/dl Magnesium (1.7-2.4) mg/dl Total Bilirubin (0.2-1.0) mg/dl AST (13-39) U/L ALT (7-52) U/L Alkaline Phosphatase (34-104) U/L C-Reactive Protein (0-0.5) mg/dl Total Protein (6.0-8.3) gm/dl Albumin (3.4-5.0) gm/dl Globulin (2.5-4.0) gm/dl Albumin/Globulin Ratio (0.9-2) Urine Color Urine Appearance (Clear) Urine pH (4.5-7.5) Ur Specific [place] (1.000-1.030) Urine Protein (Negative) Urine Glucose (UA) (Negative) Urine Ketones (Negative) Urine Blood (Negative) Urine Nitrite (Negative) Urine Bilirubin (Negative) Urine Urobilinogen (Negative) Ur Leukocyte Esterase (Negative) Urine WBC (Auto) (0-5) /hpf Urine RBC (Auto) (0-4) /hpf U Hyaline Cast (Auto) (0-5) /lpf U Epithel Cells (Auto) (0-5) /lpf Urine Bacteria (Auto) (Negative) Urine Osmolality 369 L (500-800) mOsm/kg Ur Random Sodium 38 mmol/L SARS-CoV-2, RNA, NAAT (NEGATIVE) 02/03/23 02/03/23 02/03/23 Range/Units 05:31 05:31 05:48 WBC 2.91 L (4.8-10.8) K/ul RBC 3.22 L (4.20-5.40) M/uL Hgb 9.7 L (12.0-16.0) g/dl Hct 27.9 L (37.0-47.0) % MCV 86.6 (80.0-100.0) fL MCH 30.1 (25.0-34.0) pg MCHC 34.8 (32.0-36.0) g/dL RDW Std Deviation 46.5 H (36.4-46.3) fL RDW Coeff of [place] 14.6 H (11.5-14.5) % Plt Count 199 (130-400) K/uL MPV 9.1 L (9.4-12.4) fL Immature Gran % (Auto) 0.3 % Neut % (Auto) 66.1 % Lymph % (Auto) 15.8 % [place] % (Auto) 16.5 % Eos % (Auto) 0.3 % Baso % (Auto) 1.0 % Neut # (Auto) 1.92 (1.40-6.50) K/uL Lymph # (Auto) 0.46 L (1.2-3.4) K/uL [place] # (Auto) 0.48 (0.11-0.59) K/uL Eos # (Auto) 0.01 (0-0.50) K/uL Baso # (Auto) 0.03 (0-0.2) K/uL Immature Gran # (Auto) 0.01 (0.01-0.20) K/uL ESR (0-30) mm/hr Sodium 130 L (136-145) mmol/L Potassium 4.2 (3.5-5.1) mmol/L Chloride 101 (98-107) mmol/L Carbon Dioxide 24 (21-32) mmol/L Anion Gap 5 (3-11) BUN 15 (6-23) mg/dl Creatinine 0.59 L (0.6-1.2) mg/dl Est Cr Clr Drug Dosing 55.6 ml/min Est GFR ( Amer) 103.9 ml/min Est GFR (Non-Af Amer) 89.7 ml/min BUN/Creatinine Ratio 25.4 H (10-20) Glucose 77 (70-99(Fasting)) mg/dl POC Glucose 89 (70-99) mg/dl Osmolality (280-300) mOsm/kg Calcium 7.6 L (8.5-10.1) mg/dl Magnesium 2.0 (1.7-2.4) mg/dl Total Bilirubin (0.2-1.0) mg/dl AST (13-39) U/L ALT (7-52) U/L Alkaline Phosphatase (34-104) U/L C-Reactive Protein (0-0.5) mg/dl Total Protein (6.0-8.3) gm/dl Albumin (3.4-5.0) gm/dl Globulin (2.5-4.0) gm/dl Albumin/Globulin Ratio (0.9-2) Urine Color Urine Appearance (Clear) Urine pH (4.5-7.5) Ur Specific [place] (1.000-1.030) Urine Protein (Negative) Urine Glucose (UA) (Negative) Urine Ketones (Negative) Urine Blood (Negative) Urine Nitrite (Negative) Urine Bilirubin (Negative) Urine Urobilinogen (Negative) Ur Leukocyte Esterase (Negative) Urine WBC (Auto) (0-5) /hpf Urine RBC (Auto) (0-4) /hpf U Hyaline Cast (Auto) (0-5) /lpf U Epithel Cells (Auto) (0-5) /lpf Urine Bacteria (Auto) (Negative) Urine Osmolality (500-800) mOsm/kg Ur Random Sodium mmol/L SARS-CoV-2, RNA, NAAT (NEGATIVE) Diagnostic Findings XR hip LT min 2V CLINICAL HISTORY: Post reduction. COMPARISON: Left hip radiographs performed earlier today. FINDINGS: Alignment of the left hip arthroplasty is anatomic post reduction. There is no fracture. IMPRESSION: Anatomic alignment of the left hip arthroplasty post reduction. No fracture. XR hip LT 2V w pelvis CLINICAL HISTORY: trauma COMPARISON: Left hip radiographs December 31, 2022 and fluoroscopic images of the left hip January 01, 2023. FINDINGS: Note is made of superior anterior dislocation of the femoral component of the left hip arthroplasty with respect to the acetabular cup. No fractures are identified. Sacroiliac joints and symphysis pubis are intact. Postoperative findings within the lumbar spine are partially imaged. IMPRESSION: Dislocated femoral component of the left hip arthroplasty. No fractures.
--- NOTE | 2023-02-03 13:34 | Consultation Report ---
NEPHROLOGY CONSULTATION NOTE REASON FOR CONSULTATION: Hyponatremia. HISTORY OF PRESENT ILLNESS: The patient is a 77-year-old female who has known history of chronic mil d hyponatremia secondary to SIADH and very low protein intake. Her sodium usually runs in the high 1 20s. She presented to the hospital yesterday following an episode of fall at home, which resulted in left hip dislocation. Overnight, she received some normal saline, which is still getting and with t hat sodium this morning was 130, on admission yesterday was 127. She reports feeling orthostatic and lightheaded at home and at multiple times at home, but despite that she is still on a lot of blood p ressure medications including amlodipine, lisinopril, metoprolol, Lasix 30 daily. At this time, her supine blood pressure is 112/68. She is getting all of her usual blood pressure medications that she normally gets at home. The patient is not having any significant pain. She has been seen by orthop edics earlier today. At this time, there is no plan for surgery, but most likely she will need total hip arthroplasty at some point. PAST MEDICAL AND SURGICAL HISTORY: Includes chronic hyponatremia secondary to SIADH, hypothyroidism, hyperlipidemia, history of reactive hypoglycemia, history of allergic rhinitis, chronic diastolic co ngestive heart failure, history of coronary artery disease, status post stent to LAD, history of hype rtension, legal blindness, renal artery occlusion, history of orthostatic hypotension, Raynaud's dise ase, constipation, osteoporosis, SLE, generalized anxiety disorder, chronic anemia and past tobacco a buse, colonoscopy, excision of breast lesion, lumbar laminectomy, injection of lumbosacral spine, par tial mastectomy, total abdominal hysterectomy with bilateral removal of tubes, total hip replacement. FAMILY HISTORY: Negative for renal disease. No renal disease or dialysis in the family. SOCIAL HISTORY: She is . Former smoker, quit in 1985, smoked half a pack for about 15 years. Very rare alcohol. No drugs. REVIEW OF SYSTEMS: Twelve systems reviewed and unless stated otherwise in HPI. She was not having a ny acute symptoms. PHYSICAL EXAMINATION: GENERAL: Elderly white female who is thin and frail. She is not in any respiratory distress. She i s awake, alert, oriented and was able to give me a very detailed account of her medical problems. VITAL SIGNS: Most recent blood pressure is 112/68, pulse rate 70, temperature 36.7, 94% on room air. CHEST: Bilaterally clear to auscultation. CARDIOVASCULAR: S1 and S2, regular. ABDOMEN: Soft, nontender. EXTREMITIES: Show no edema. SKIN: No rash. LABORATORY TEST: Sodium 130, potassium 4.2, chloride 101, BUN 15, creatinine 0.6, calcium 7.6, magne sium 2.0. Urine osmolality 369. Urine sodium 38. Urine specific gravity was 1.006. Chest x-ray, no acute cardiopulmonary findings. ASSESSMENT AND PLAN: A 77-year-old female with chronic mild hyponatremia with a baseline sodium in t he high 120s, now admitted following an episode of fall resulting in left hip dislocation. I have be en consulted for hyponatremia. Hyponatremia: This is chronic in nature. Sodium was 127 on admission, which is about her baseline. Urine osmolality was inappropriately high, consistent with SIADH. Her urine specific gravity was qu ite low at 1.006, signifying significant fluid intake relative to her solid food intake. She is gett ing normal saline for the time being, which I would continue for at least 1 more day. At this point, sodium can be checked once daily. As long as serum sodium is 125+, I do not think we need to do an ything more as that is pretty much her baseline sodium level. Given her orthostatic symptoms at home , I do want to cut down the dose of amlodipine slightly to 2.5 once daily. Continue other medication s including Lasix. She has been encouraged to take more protein in the diet. She is already followi ng fluid limit, but at this very moment, we do not need to do that, but can be done as an outpatient where she has to be around 40 ounces per day fluid limit. Thank you very much for the consult. Job ID: [id number]
[2023-02-03] MEDS: SODIUM CHLORIDE 0.9% 1000ML 1,000 ML IV SCH (14:08)
[2023-02-03] MEDS ORDERED: AMOXICILLIN/CLAVULANATE 875 MG TAB PO SCH ×2 (17:00→20:00)
--- NOTE | 2023-02-03 17:18 | Discharge Summary ---
Date of Service February 03, 2023 Admission HPI Per Admitting Provider This is a 77-year-old female with past medical history significant for SIADH, hypothyroidism, hyperlipidemia, history of reactive hypoglycemia, history of allergic rhinitis, chronic diastolic CHF, history of CAD status post stent to LAD, history of hypertension, legal blindness, history of renal artery occlusion, history of orthostatic hypotension, Raynaud disease, , constipation taking stool softeners, osteoporosis, SLE, generalized anxiety disorder, cachectic state, chronic anemia, past tobacco abuse, presents with a fall. The patient was trying to move chair from dinning room. 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 She struck her head and she was on the elbows, but no loss of consciousness and she was brought in here and imaging studies showed left hip dislocation. In the ER, she was given Diprivan and fentanyl and the got hip reduced, but the patient and does not feel comfortable to go home. ER also talked to the ortho on-call. The patient also had a nontraumatic left hip dislocation in December of this year and supposed to follow the ortho as an outpatient. It looks like she has left hip surgery in 2012. The patient to be monitored in the hospital. Consult ortho in the a.m. for further recommendations for recurrent dislocations and PT/OT. Currently, the patient is resting comfortably, but still not able to move her left leg because of pain.Hemodynamically stable. Denies any headache. She was feeling slightly dizzy in the morning and thinks that could be contributing to her fall today. She is legally blind, but able to move in her house because she knows the place and she generally does not use any cane. Somewhat hard of hearing. She always has runny nose and occasional cough. No sore throat. Appetite is okay. No difficulty swallowing. No chest pain, no shortness of breath, no nausea, no abdominal pain. She is constipated and uses stool softeners. Normal bladder movements. No rash. Admission Exam Per Admitting Provider GENERAL: The patient is thin and frail, not in acute distress. VITAL SIGNS: Temperature 36.6, pulse 81, respiratory rate 19, blood pressure 170/87, oxygen 96% on room air. HEENT: Pupils equal, round and reactive to light. Oral mucosa moist. NECK: No JVD, no neck masses. CARDIOVASCULAR: S1 and S2 heard. Regular rate and rhythm. No murmur, no gallop. RESPIRATORY SYSTEM: Normal AP diameter. No accessory muscle use. No wheezing, no crackles. ABDOMEN: Soft, bowel sounds present, nontender, no distention. CENTRAL NERVOUS SYSTEM: Alert and oriented. Speech is clear. Obeys simple commands. Painful movements of the left hip. EXTREMITIES: No edema, no erythema. Painful movement of the left hip. Principal Diagnosis Dislocation of hip, left Fall Hyponatremia, chronic Discharge Exam GENERAL:thin and frail elderly F, not in acute distress. HEENT: NC/AT. EOMI. Pupils equal, round and reactive to light. Oral mucosa moist. NECK: No JVD, no neck masses. CARDIOVASCULAR: S1 and S2 heard. Regular rate and rhythm. No murmur, no gallop. RESPIRATORY: Normal AP diameter. No accessory muscle use. No wheezing, no crackles. ABDOMEN: Soft, bowel sounds present, nontender, no distention. NEURO: Alert and oriented. Speech is clear. Obeys simple commands. EXTREMITIES: No edema, no erythema. Discharge Data Allergies Allergy/AdvReac Type Severity Reaction Status Date / Time venlafaxine Allergy Mild RASH Verified 02/02/23 17:38 Sulfa (Sulfonamide Allergy Unknown UNKNOWN Verified 02/02/23 17:38 Antibiotics) REACTION TO SULFA DRUGS tomato AdvReac Unknown Verified 02/02/23 17:38 Consultations 02/02/23 20:11 ED Decision to Admit Stat 02/03/23 08:00 Consult Nephrology Routine Consult Orthopedic Surgery Routine Ordered Studies 02/02/23 14:11 CT cervical spine wo con Stat FINDINGS: Reversal of the cervical lordosis with anterolisthesis of C3 on C4 has not significantly changed since prior exam. There is no acute cervical spine fracture. Severe multilevel degenerative changes are present. There are old fractures of the posterior left first and second ribs as well as the distal left clavicle. There is no prevertebral edema. IMPRESSION: No acute cervical spine fracture or subluxation. CT head/brain wo con Stat FINDINGS: No acute intracranial hemorrhage, midline shift or mass effect is present. The ventricular system is unremarkable. The basal cisterns are patent. No extra-axial collections are present. There are no findings to suggest acute dural sinus thrombosis or acute territorial infarct. White matter hypodensity suggests small vessel disease. There has been no significant change in appearance of the brain. There is no acute calvarial fracture. Bilateral mastoid air cells are partially opacified. This is unchanged. IMPRESSION: 1. No acute intracranial findings. 2. No acute calvarial fracture. Hospital Course (1) Fall: (2) Dislocation of hip, left, closed: (3) Hyponatremia: Plan This 77-year-old female presents with status post fall and left hip dislocation. 1. Mechanical fall, status post left hip dislocation, status post reduction. Recurrent dislocation was reduced last month in December. Pain control. Orthopedics consulted - likely will require revision total hip arthroplasty.will place patient into a knee immobilizer. She should wear the immobilizer at all times. Can remove for hygiene purposes. Weightbearing as tolerated. will order a cobalt level while she is inpatient to ensure she is not having any type of cobalt toxicity or [id number] reaction from her total hip. Any further work-up can be completed as an outpatient. Patient can follow-up with Dr. Rey as an outpatient to discuss treatment options. She can call [phone] for an appointment. PT, OT. Possible UTI Possible cellulitis Patient recently had biopsy of skin lesion near left wrist region. Area is erythematous. possible developing cellulitis. Placed on Augmentin and doxy. UA came back positive. Possible UTI . U cultx positive for GNB - already On Augmentin, as above. follow cx results 2. History of systemic lupus erythematosus. Continue home Plaquenil. 3. Chronic anemia, hemoglobin 10.9, seems at baseline. Follow up with PCP. 4. Hyponatremia, history of SIADH. -urine osmolality, urine sodium and serum osmolality obtained. Given gentle fluids. Nephrology consulted - appreciate further recommendation. Patient with chronic hyponatremia Decrease amlodipine to 2.5 mg daily Continue fluid restriction 40 ounces a day after discharge 5. History of coronary artery disease, status post stent. History of myocardial infarction. On aspirin, Plavix, statin and beta maría. Currently stable. 6. History of hypertension: On metoprolol succinate, lisinopril, amlodipine and Lasix. Monitor the blood pressure. Amlodipine decreased from 2.5 twice daily, to 2.5 daily. 7. History of chronic diastolic congestive heart failure, on Lasix. Currently, getting gentle fluids. Monitor for any volume overload. 8. Hyperlipidemia: On statin. 9. Chronic constipation, on stool softeners. Total Time Total Time Spent Total Time Spent (In Minutes): 40 Discharge Plan Discharge Items Patient Disposition: Home - Self-Care Reason For Visit: hip dislocation left Discharge Diagnosis: Dislocation of hip, left Fall Hyponatremia, chronic Activity: Per Instructions section Non-emergency contact: Primary Care Provider and Surgeon Call non-emergency contact if: you have any medication questions and your symptoms worsen Follow-up/Referrals: Missy Murillo MD [Primary Care Provider] - Diet: Heart Healthy Diet Texture: Easy to Chew Diet Comment: It is recommended that you have more protein in your diet. 40 ounces FR Addtl Attending Provider Instructions: Follow-up with your primary care doctor, and orthopedic surgeon. From our studies, you likely have a urinary tract infection - finish antibiotic treatment as prescribed. Follow-up with your primary care doctor, on final urine culture results. Orthopedic surgeon also ordered cobalt level, this study is currently pending as well. Follow-up with orthopedic surgery regarding this level and possible future surgical intervention. Discussed with nephrology, recommends to decrease your amlodipine to 2.5 mg daily. Pending Studies at Discharge: Yes Studies:: [place] level Final urine culture Stand-Alone Forms: My [facility] [place] Typeform, Smoking Cessation Medications and DC Order Prescriptions: New amoxicillin-pot clavulanate 875-125 mg Tablet 1 tab PO BIDM 4 Days Qty: 8 0RF doxycycline hyclate 100 mg Capsule 100 mg PO Q12H 4 Days Qty: 8 0RF Continued atorvastatin 40 mg tablet 40 mg PO QAM docusate sodium [Colace] 100 mg Capsule 100 mg PO BID hydroxychloroquine [Plaquenil] 200 mg Tablet 200 mg PO HS cholecalciferol (vitamin D3) [Vitamin D3] 1,000 unit Capsule 2,000 unit PO QAM clobetasol 0.05 % Shampoo 1 applic TOPICAL DIRECTED PRN (Reason: for flare up of lupus) polyethylene glycol 3350 8.5 gram Powder In Packet 17 g PO QAM Probiotic 3 billion cell Capsule 3,000 mmu cells PO QAM metoprolol succinate 25 mg tablet extended release 24 hr 25 mg PO DAILY lisinopril 2.5 mg tablet 2.5 mg PO DAILY aspirin 81 mg Tablet,Delayed Release (Dr/Ec) 81 mg PO DAILY Qty: 1 0RF ferrous sulfate 325 mg (65 mg iron) Tablet 325 mg PO QAM furosemide 20 mg tablet 30 mg PO QAM clobetasol 0.05 % cream 1 applic TOPICAL BID PRN (Reason: .FLARES) Rx Instructions: APPLY TO LUPUS ON THE BODY,TWICE DAILY, NEEDED, FOR FLARES tacrolimus 0.1 % ointment 1 applic TOPICAL BID Rx Instructions: APPLY TO SPOTS ON FACE clopidogrel 75 mg tablet 75 mg PO DAILY fluticasone propionate 50 mcg/actuation spray,suspension 2 spray INTRANASAL DAILY cyclosporine 0.05 % dropperette 1 drp OPB Q12H zinc acetate 50 mg (zinc) Capsule 50 mg PO QAM loratadine 10 mg Tablet 10 mg PO DAILY nitroglycerin 0.4 mg Tablet, Sublingual 0.4 mg sublingual .DAILY/PRN PRN (Reason: Chest Pain) Rx Instructions: NEEDED FOR CHEST PAIN : ONE TABLET UNDER THE TONGUE EVERY 5 MINUTES UP TO THREE DOSES. Prolia 60 mg/mL Syringe 60 mg SUBCUT Q6M multivitamin Tablet 1 tab PO DAILY levothyroxine [Synthroid] 100 mcg tablet 100 mcg PO DAILY Changed amlodipine 2.5 mg tablet 2.5 mg PO DAILY Qty: 20 0RF Discharge Orders: Discharge Order (Routine); Ordered 02/03/23 Ordered By: Cosme Gamboa Admission Data Admit Date/Time: 02/02/23 21:23 Attending Provider: Cosme Gamboa Admit Provider: Yanick Vieyra Primary Care Provider: Missy Murillo Other Providers: Yanick Vieyra ; Jessica Coppola ; Mathew Murillo ; Marixa Weinstein ; Aline Tierney ; Kristine Talavera ; Dedra Ibarra ; Isaac Rey
--- NOTE | 2023-02-03 19:03 | Emergency Department Note ---
Pre Sedation Assessment Vital Signs Pulse Pulse Resp BP Pulse Ox O2 Del Method O2 Flow Rate 02/02/23 21:14 81 19 170/87 H 96 Room Air 02/02/23 20:35 55 L 16 170/87 H 93 Room Air 02/02/23 20:04 58 L 18 149/85 H 98 Room Air 02/02/23 19:55 58 L 18 148/79 H 100 Room Air 02/02/23 19:50 59 L 18 119/67 100 Room Air 02/02/23 19:44 57 L 18 135/74 100 Nasal Cannula 2 02/02/23 19:36 64 20 157/82 H 100 Nasal Cannula 8 02/02/23 19:36 100 Room Air 0 02/02/23 19:26 63 100 Room Air 02/02/23 19:04 62 16 142/87 H 100 Cardiovascular RRR, no murmur, no edema + regular rate and + regular rhythm + S1 normal and + S2 normal + peripheral pulses normal; no JVD + capillary refill normal; no edema Respiratory normal respiratory effort, lungs clear to auscultation + respiratory effort normal; no labored breathing + clear to auscultation bilaterally Pre-Sedation Airway Assessment Smoking Status: Former smoker Short, Thick Neck: No Thyromental Distance: > or= 3.5 Finger Breadths Oral Cavity: + WNL Mallampati Class: II ASA: ASA2 NPO Status Date of Last Intake of Fluids: 02/02/23 Time of Last Intake of Fluids: 12:30 Date of Last Intake of Solid Food: 02/02/23 Time of Last Intake of Solid Foods: 12:30 Notes The planned sedation has been discussed with the patient. Informed Consent was obtained. I have identified the patient, determined the appropriateness of sedation and have assessed the patient immediately prior to the procedure. All medicine(s) and interventions are by my order.
--- NOTE | 2023-02-03 19:05 | Emergency Department Note ---
Post Sedation Assessment Vital Signs Pulse Pulse Resp BP Pulse Ox O2 Del Method O2 Flow Rate 02/02/23 21:14 81 19 170/87 H 96 Room Air 02/02/23 20:35 55 L 16 170/87 H 93 Room Air 02/02/23 20:04 58 L 18 149/85 H 98 Room Air 02/02/23 19:55 58 L 18 148/79 H 100 Room Air 02/02/23 19:50 59 L 18 119/67 100 Room Air 02/02/23 19:44 57 L 18 135/74 100 Nasal Cannula 2 02/02/23 19:36 64 20 157/82 H 100 Nasal Cannula 8 02/02/23 19:36 100 Room Air 0 02/02/23 19:26 63 100 Room Air Recovery Score Activity: Moves 4 extremities Respiration: Deep Breath/Cough Circulation: +/-20% PreAnes Value Consciousness: Fully Awake Oxygen Saturation: > 92% On Room Air Post Anesthesia Score: 10 Discharge Sedation Level of Care: Phase I Unexpected Event: None Post Sedation Plan On clinical assessment, the patient appears to have tolerated the sedation without complications. Patient is recovering as anticipated. Patient will continue to be monitored by nursing and may be discharged when sedation discharge criteria are met per below protocol. Upon Completions of procedure up to 15 minutes continue every 5 minute vital signs and the P.A.R. score; then discharge to a Phase I or Fast Track to Phase II per the following guidelines: * Discharge Patient to appropriate Phase II area if PAR is 8 or greater or return to pre- procedure baseline. The post - procedure orders will be as directed. * If PAR score is less than 8 or not return to pre-procedure baseline then patient will follow Phase I monitoring till PAR is reached for Phase II. The Phase I may be done in procedure room or may call to secure a Phase I area. * If naloxone or flumazenil are used for reversal, hold in Phase I for continued monitoring from when last reversal dose was given for a minimum of 60 minutes or longer pending the nurse and/or physician discretion of patient condition before discharge to Phase II. Please call the Sedation Physician to re-evaluate and complete post-note for discharge to Phase II area. Do NOT discharge from procedure sedation or Phase 1 until post- sedation evaluation note is complete by procedure /sedation MD Sedation Discharge Instructions to be given to the patient at discharge to home. Sedation Data Sedation Times Sedation Start Date: 02/02/23 Sedation Start Time: 19:40 Procedure Times Procedure Start Time:: 19:41 Procedure End Time: 19:44
[2023-02-04] MEDS ORDERED: amLODIPine BESYLATE 5 MG TAB PO SCH (09:00)
== END 2023-02-03 18:00 | disposition home or self-care (01) ==
LOC: 3W 13:49 → ED 13:49 → 3W 22:36
DX: Z87.891 Personal history of nicotine dependence; Y83.1 Surgical operation with implant of artificial internal device as the cause of abnormal reaction of the patient, or of later complication, without mention of misadventure at the time of the procedure; I50.32 Chronic diastolic (congestive) heart failure; Z88.2 Allergy status to sulfonamides; W19.XXXA Unspecified fall, initial encounter; T84.021A Dislocation of internal left hip prosthesis, initial encounter; M32.9 Systemic lupus erythematosus, unspecified; I11.0 Hypertensive heart disease with heart failure; Z79.899 Other long term (current) drug therapy; I25.10 Atherosclerotic heart disease of native coronary artery without angina pectoris; Z95.5 Presence of coronary angioplasty implant and graft; D64.9 Anemia, unspecified; Z79.82 Long term (current) use of aspirin; Z91.018 Allergy to other foods; S09.90XA Unspecified injury of head, initial encounter; H54.8 Legal blindness, as defined in USA; E87.1 Hypo-osmolality and hyponatremia

== ENCOUNTER 2023-04-09 19:19 | Observation (INO) ==
[2023-04-09] MEDS ORDERED: fentaNYL citrate PF 100 MCG/2 ML VIAL IV ONE (19:54)
[2023-04-09] MEDS ORDERED: ACETAMINOPHEN 1,000 MG/100 ML VIAL IV STA (19:57)
[2023-04-09] MEDS ORDERED: SODIUM CHLORIDE 0.9% 1000ML 1,000 ML IV SCH (20:00)
[2023-04-09 20:20] LABS: Basophils # (auto) 0.01 K/uL (0-0.2); Basophils % (auto) 0.4 %; Eosinophils # (auto) 0.01 K/uL (0-0.50); Eosinophils % (auto) 0.4 %; Hemoglobin 11.1 g/dl (12.0-16.0); Lymphocytes # (auto) 0.56 K/uL (1.2-3.4); Lymphocytes % (auto) 20.1 %; Mean Corpuscular Hemoglobin 30.1 pg (25.0-34.0); Mean Corpuscular Hgb Conc 34.7 g/dL (32.0-36.0); Mean Corpuscular Volume 86.7 fL (80.0-100.0); Mean Platelet Volume 9.4 fL (9.4-12.4); Monocytes # (auto) 0.52 K/uL (0.11-0.59); Monocytes % (auto) 18.7 %; Neutrophils # (auto) 1.68 K/uL (1.40-6.50); Neutrophils % (auto) 60.4 %; Platelet Count 221 K/uL (130-400); RDW Coefficient of Variation 12.4 % (11.5-14.5); RDW Standard Deviation 39.8 fL (36.4-46.3); Red Blood Count 3.69 M/uL (4.20-5.40); White Blood Count 2.78 K/ul (4.8-10.8)
[2023-04-09] MEDS ORDERED: MoRPHine SULFATE 2 MG/ML CARP IV STA (20:30)
[2023-04-09 20:46] LABS: INR 1.1 (0.9-1.1); Partial Thromboplastin Time 27.1 Seconds (21.0-31.0); Prothrombin Time 12.1 Seconds (9.0-12.0)
[2023-04-09 21:00] LABS: Albumin Globulin Ratio 1.4 (0.9-2); Albumin Level 3.9 gm/dl (3.4-5.0); BUN Creatinine Ratio 30.5 (10-20); Bilirubin,Total 0.3 mg/dl (0.2-1.0); Calcium 8.6 mg/dl (8.6-10.3); Creatinine Clr Calc Pharmacy 54.9 ml/min; Est GFR (African American) 103.9 ml/min; Est GFR (Non-African American) 89.7 ml/min; Globulin 2.7 gm/dl (2.5-4.0); Potassium 4.4 mmol/L (3.5-5.1); Total Protein 6.6 gm/dl (6.0-8.3)
[2023-04-09] MEDS ORDERED: PROPOFOL IV EMULSION 10 MG/ML 20 ML VIAL IV STA (21:01)
[2023-04-09 22:00] LABS: Appearance Urine Clear (Clear); Bilirubin Urine Negative (Negative); Blood Urine Negative (Negative); Color Urine Yellow; Glucose Urine UA Negative (Negative); Ketones Urine Negative (Negative); Leukocyte Esterase Urine Negative (Negative); Nitrite Urine Negative (Negative); Protein Urine Negative (Negative); Specific Gravity Urine 1.004 (1.000-1.030); Urobilinogen Urine Negative (Negative)
--- NOTE | 2023-04-09 23:20 | Emergency Department Note ---
ED Visit Note I was asked by Dr. Bardales to perform reduction of this patient's left hip dislocation. Please see her notes for anesthesia. After adequate anesthesia was achieved, several reduction attempts were made, initially flexing at the hip and knee and applying steady traction. Hip was then reduced by applying downward traction while internally and externally rotating the hip. Postreduction x-rays confirmed successful reduction. .
[2023-04-10] MEDS ORDERED: MoRPHine SULFATE 2 MG/ML CARP IV STA (00:50)
[2023-04-10] MEDS ORDERED: NITROGLYCERIN SL 0.4 MG/TAB TAB SL PRN ×2 (01:31)
[2023-04-10] MEDS ORDERED: SODIUM CHLORIDE 0.9% 1000ML 1,000 ML IV SCH (01:31)
[2023-04-10] MEDS ORDERED: oxyCODONE HCL IR 5 MG TAB (IMMEDIATE RELEASE) PO PRN (01:31)
[2023-04-10] MEDS ORDERED: ACETAMINOPHEN 325 MG TAB PO PRN (01:31)
[2023-04-10] MEDS ORDERED: POLYETHYLENE (MIRALAX) 17 GM PACK PO PRN (01:31)
--- NOTE | 2023-04-10 01:48 | Emergency Department Note ---
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 She states she was walking in her kitchen getting a cup of coffee when she stepped and felt her L hip slide. Pt was able to catch herself on the countertop, avoiding a fall. Her was outside and she was able to get his attention. Pt states this has happened many times before. She is scheduled to have a revision of her CHARY at the beginning of April with Dr. Rey at [facility]. REVIEW OF SYSTEMS: A review of systems was performed with positives and pertinent negatives listed in the history of present illness. 10 systems were reviewed and are otherwise negative. ALLERGIES: see below MEDICATIONS: see below PMH: see below SOCIAL HISTORY: see below DDx: Fracture, dislocation, neurovascular compromise, compartment syndrome, soft tissue injury, as well as other pathologies. PHYSICAL EXAM: Vital signs reviewed. General: Elderly, thin and frail 77-year-old female, in some discomfort but no distress HEENT: No scleral icterus, PERRLA, neck supple. Atraumatic. Cardiovascular: Regular rate and rhythm, no extra sounds. Pulmonary: Clear to auscultation bilaterally, normal work of breathing. Abdomen: Soft, nontender, nondistended, positive bowel sounds. Musculoskeletal: Atraumatic, no peripheral edema. Neurologic: Patient awake alert and oriented x 3, speech is clear Skin: Warm, dry, no rash EMERGENCY DEPARTMENT COURSE/MDM: This patient was evaluated and appeared to be in no significant distress. External medical records were reviewed. IV access was obtained and laboratory work was drawn. The patient was medicated with IV fentanyl 25 mcg, 1 g of acetaminophen. She was gently hydrated with normal saline solution. Nursing staff placed a [place] catheter. X-ray of the left hip confirms a L CHARY dislocation. Patient was observed in the emergency department while laboratory work is pending. She did receive additional pain medication with IV morphine. Patient is noted to be chronically hyponatremic with a sodium of 125 today. EKG reveals no evidence of acute ischemia or dysrhythmia. After discussion with the patient and her , conscious sedation was performed by me and the hip was reduced by Beronica العراقي PA-C. Patient tolerated the procedure well but did not feel that she was strong enough to be released. Consultation with the hospitalist service for admission was placed. Procedural Sedation Indication L hip dislocation Total time: 10 minutes. Written consent was obtained after the risks and benefits were explained to the patient and , including, but not limited to aspiration, allergic reaction, breathing difficulties, cardiac complications, vomiting, pain, event recall, bleeding, and/or infection. pre-sedation examination and paperwork completed. The patient was on 100% oxygen via NRB prior to the procedure. Continuos end tidal CO2 monitoring, pulse oximetry, and cardiac monitoring were utilized. Suction, airway equipment, medications, respiratory equipment, and appropriate personnel were prepared prior to the initiation of the procedure. A time out was taken. Sedation was achieved utilizing a total of 50 mcg of propofol. After I observed the patient had reached the appropriate level of sedation the main procedure was performed without complication. Sedation was discontinued and the monitoring continued. The patient recovered quickly from the effects of the medication without complication or adverse event. MONITORING: An order for cardiac monitoring was placed and the patient is noted to be in a sinus bradycardia at 56 beats per minute. RADIOLOGY: Left hip x-ray to my interpretation reveals dislocation status post CHARY Chest x-ray to my interpretation reveals no evidence of focal lung consolidation or failure. Post reduction left hip x-ray to my interpretation reveals successful reduction, status post CHARY. EKG: To my interpretation reveals normal sinus rhythm at 65 bpm. Previous septal infarct, QTc of 428. When compared to previous dated February 02, 2023, septal infarct is now present DISPOSITION: Admission Past Med/Surg History Medical History CAD (coronary artery disease) Chronic back pain Coronary artery disease s/p 5 stents in 2017 Degenerative disc disease Diastolic heart failure EF 58%, follows with [facility] cardio GERD (gastroesophageal reflux disease) diet controlled History of blood transfusion "with every surgery" Hypertension controlled, stable per pt Hypoglycemia with associated syncope, last syncopal episode colonoscopy fasting 8 yrs ago Hypothyroidism Myocardial Infarction (~2016) follows with Dr Jean Baptiste On anticoagulant therapy Raynaud's disease SIADH (syndrome of inappropriate ADH production) 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 no longer sees a neurologist. Systemic lupus follows with [facility] Rheumatology Surgical History History of cardiac cath (~2017) at [facility] -5 stents-2017 History of cataract surgery bilateral History of colonoscopy History of esophagogastroduodenoscopy (EGD) History of heart artery stent (~2017) x5 stents (at [facility]) History of open reduction and internal fixation (ORIF) procedure right wrist History of tonsillectomy History of total hip arthroplasty left Hx of vaginal hysterectomy S/P lumbar fusion x2 Family History Other No family history of adverse response to anesthesia Social History Smoking Status: Never smoker Tobacco Type: Cigarettes Cigarettes Per Day: 6-8; Second Hand Exposure: No; Do You Dip or Chew Tobacco: No; Tobacco Cessation Education Requested by Patient: No Hx Alcohol Use: No Hx Substance Use: No Preferred Language: Somali Communication Ability: Effective Communication Ability Comment: legally blind Visual Impairment: No Limitations Hearing Ability: Normal Gold Tooler Required: No Beliefs That Will Affect Care: None marital status: Current Living Situation: Spouse Current Living Situation Comment: Lives at home with current occupational status: retired Other Information That Helps Us Care for You: No Feels Safe at Home: No Is there a partner from a previous relationship who is making you feel unsafe now?: No Any Concerns about Your Family Situation: No Would You Like to Speak to Someone About Your Situation: No Safety Concerns: Afraid for Self Assistive Devices: Glasses, Hearing Aid - Bilateral and Walker Allergies Allergies Allergy/AdvReac Type Severity Reaction Status Date / Time venlafaxine Allergy Mild RASH Verified 02/02/23 17:38 Sulfa (Sulfonamide Allergy Unknown UNKNOWN Verified 02/02/23 17:38 Antibiotics) REACTION TO SULFA DRUGS tomato AdvReac Unknown Verified 02/02/23 17:38 Home Meds Home Medications Medication Instructions Recorded Confirmed atorvastatin 40 mg tablet 40 mg PO QAM 03/04/19 04/10/23 cholecalciferol (vitamin D3) 25 2,000 unit PO QAM 03/04/19 04/10/23 mcg (1,000 unit) capsule (Vitamin D3) clobetasol 0.05 % shampoo 1 applic topical DIRECTED PRN 03/04/19 04/10/23 for flare up of lupus docusate sodium 100 mg capsule 100 mg PO BID 03/04/19 04/10/23 (Colace) hydroxychloroquine 200 mg tablet 200 mg PO HS 03/04/19 04/10/23 (Plaquenil) lactobacillus combination no.4 3 3,000 mmu cells PO QAM 03/04/19 04/10/23 billion cell capsule (Probiotic) polyethylene glycol 3350 8.5 gram 17 g PO QAM 03/04/19 04/10/23 oral powder packet lisinopril 2.5 mg tablet 2.5 mg PO DAILY 08/14/22 04/10/23 metoprolol succinate 25 mg 25 mg PO DAILY 08/14/22 04/10/23 tablet,extended release 24 hr clobetasol 0.05 % topical cream 1 applic topical BID PRN .FLARES 12/31/22 04/10/23 clopidogrel 75 mg tablet 75 mg PO DAILY 12/31/22 04/10/23 cyclosporine 0.05 % eye drops in a 1 drp OPB Q12H PRN Dry Eye(S) 12/31/22 04/10/23 dropperette denosumab 60 mg/mL subcutaneous 60 mg subcut Q6M 12/31/22 04/10/23 syringe (Prolia) ferrous sulfate 325 mg (65 mg 325 mg PO QAM 12/31/22 04/10/23 iron) tablet fluticasone propionate 50 2 spray intranasal DAILY PRN 12/31/22 04/10/23 mcg/actuation nasal Allergy Symptoms spray,suspension furosemide 20 mg tablet 30 mg PO QAM 12/31/22 04/10/23 loratadine 10 mg tablet 10 mg PO DAILY PRN Allergy Symptoms 12/31/22 04/10/23 multivitamin 1 tab PO DAILY 12/31/22 04/10/23 nitroglycerin 0.4 mg sublingual 0.4 mg sublingual .DAILY/PRN PRN 12/31/22 04/10/23 tablet Chest Pain tacrolimus 0.1 % topical ointment 1 applic topical BID PRN flare up 12/31/22 04/10/23 of lupus zinc acetate 50 mg (zinc) capsule 50 mg PO QAM 12/31/22 04/10/23 levothyroxine 100 mcg tablet 112 mcg PO DAILY 02/02/23 04/10/23 (Synthroid) amlodipine 2.5 mg tablet 2.5 mg PO BID 04/10/23 04/10/23 Previous Rx's Medication Instructions Recorded aspirin 81 mg tablet,delayed 81 mg PO DAILY #1 tab 08/15/22 release Results & Data (ED) Vital Signs Vital Signs - 24 hr 04/09/23 19:26 04/09/23 19:41 04/09/23 19:06 Temperature 36.5 C 36.5 C Temperature Source Oral Oral Pulse Rate 68 68 Pulse Rate [Right Finger] 66 Pulse Rate from SpO2 Sensor Pulse Rhythm Regular Pulse Rhythm [Right Finger] Regular Pulse Strength Normal Pulse Strength [Right Finger] Normal Respiratory Rate 18 18 Respiratory Effort / Characteristics Non-Labored Non-Labored Respiratory Depth Normal Normal Respiratory Pattern Regular Regular Blood Pressure 168/91 H Blood Pressure [Right Arm] 157/90 H Blood Pressure Mean 116 Blood Pressure Mean [Right Arm] 112 Blood Pressure Position Sitting Blood Pressure Position [Right Arm] Sitting Pulse Oximetry 99 100 Oxygen Delivery Method Room Air Oxygen Flow Rate Sepsis Recent Fever Within 48 Hours No Sepsis New/Unexplained Change in Mental Status No Sepsis Action Taken by Nursing No Action Required End-Tidal CO2 04/09/23 21:24 04/09/23 21:25 04/09/23 21:25 Temperature Temperature Source Pulse Rate Pulse Rate [Right Finger] 59 L Pulse Rate from SpO2 Sensor Pulse Rhythm Pulse Rhythm [Right Finger] Pulse Strength Pulse Strength [Right Finger] Respiratory Rate 19 Respiratory Effort / Characteristics Respiratory Depth Respiratory Pattern Blood Pressure Blood Pressure [Right Arm] 146/80 H Blood Pressure Mean Blood Pressure Mean [Right Arm] 102 Blood Pressure Position Blood Pressure Position [Right Arm] Pulse Oximetry 100 100 100 Oxygen Delivery Method Room Air Room Air Room Air Oxygen Flow Rate Sepsis Recent Fever Within 48 Hours Sepsis New/Unexplained Change in Mental Status Sepsis Action Taken by Nursing End-Tidal CO2 04/09/23 19:27 04/09/23 19:30 04/09/23 19:30 Temperature Temperature Source Pulse Rate 68 68 Pulse Rate [Right Finger] Pulse Rate from SpO2 Sensor 68 69 Pulse Rhythm Pulse Rhythm [Right Finger] Pulse Strength Pulse Strength [Right Finger] Respiratory Rate 15 15 Respiratory Effort / Characteristics Respiratory Depth Respiratory Pattern Blood Pressure 157/90 H Blood Pressure [Right Arm] Blood Pressure Mean 112 Blood Pressure Mean [Right Arm] Blood Pressure Position Blood Pressure Position [Right Arm] Pulse Oximetry 100 100 Oxygen Delivery Method Oxygen Flow Rate Sepsis Recent Fever Within 48 Hours Sepsis New/Unexplained Change in Mental Status Sepsis Action Taken by Nursing End-Tidal CO2 04/09/23 19:40 04/09/23 19:50 04/09/23 20:00 Temperature Temperature Source Pulse Rate 66 65 Pulse Rate [Right Finger] Pulse Rate from SpO2 Sensor 66 65 Pulse Rhythm Pulse Rhythm [Right Finger] Pulse Strength Pulse Strength [Right Finger] Respiratory Rate 18 17 Respiratory Effort / Characteristics Respiratory Depth Respiratory Pattern Blood Pressure 149/83 H Blood Pressure [Right Arm] Blood Pressure Mean 105 Blood Pressure Mean [Right Arm] Blood Pressure Position Blood Pressure Position [Right Arm] Pulse Oximetry 100 100 Oxygen Delivery Method Oxygen Flow Rate Sepsis Recent Fever Within 48 Hours Sepsis New/Unexplained Change in Mental Status Sepsis Action Taken by Nursing End-Tidal CO2 04/09/23 20:00 04/09/23 20:10 04/09/23 20:20 Temperature Temperature Source Pulse Rate 68 67 63 Pulse Rate [Right Finger] Pulse Rate from SpO2 Sensor 68 67 64 Pulse Rhythm Pulse Rhythm [Right Finger] Pulse Strength Pulse Strength [Right Finger] Respiratory Rate 21 21 14 Respiratory Effort / Characteristics Respiratory Depth Respiratory Pattern Blood Pressure Blood Pressure [Right Arm] Blood Pressure Mean Blood Pressure Mean [Right Arm] Blood Pressure Position Blood Pressure Position [Right Arm] Pulse Oximetry 100 100 100 Oxygen Delivery Method Oxygen Flow Rate Sepsis Recent Fever Within 48 Hours Sepsis New/Unexplained Change in Mental Status Sepsis Action Taken by Nursing End-Tidal CO2 04/09/23 20:30 04/09/23 20:30 04/09/23 20:40 Temperature Temperature Source Pulse Rate 86 62 Pulse Rate [Right Finger] Pulse Rate from SpO2 Sensor 73 61 Pulse Rhythm Pulse Rhythm [Right Finger] Pulse Strength Pulse Strength [Right Finger] Respiratory Rate 20 16 Respiratory Effort / Characteristics Respiratory Depth Respiratory Pattern Blood Pressure 160/97 H Blood Pressure [Right Arm] Blood Pressure Mean 118 Blood Pressure Mean [Right Arm] Blood Pressure Position Blood Pressure Position [Right Arm] Pulse Oximetry 92 99 Oxygen Delivery Method Oxygen Flow Rate Sepsis Recent Fever Within 48 Hours Sepsis New/Unexplained Change in Mental Status Sepsis Action Taken by Nursing End-Tidal CO2 04/09/23 20:50 04/09/23 21:00 04/09/23 21:00 Temperature Temperature Source Pulse Rate 61 62 Pulse Rate [Right Finger] Pulse Rate from SpO2 Sensor 61 62 Pulse Rhythm Pulse Rhythm [Right Finger] Pulse Strength Pulse Strength [Right Finger] Respiratory Rate 13 18 Respiratory Effort / Characteristics Respiratory Depth Respiratory Pattern Blood Pressure 150/87 H Blood Pressure [Right Arm] Blood Pressure Mean 108 Blood Pressure Mean [Right Arm] Blood Pressure Position Blood Pressure Position [Right Arm] Pulse Oximetry 100 100 Oxygen Delivery Method Oxygen Flow Rate Sepsis Recent Fever Within 48 Hours Sepsis New/Unexplained Change in Mental Status Sepsis Action Taken by Nursing End-Tidal CO2 04/09/23 21:10 04/09/23 21:17 04/09/23 21:17 Temperature Temperature Source Pulse Rate 76 62 Pulse Rate [Right Finger] Pulse Rate from SpO2 Sensor 75 62 Pulse Rhythm Pulse Rhythm [Right Finger] Pulse Strength Pulse Strength [Right Finger] Respiratory Rate 13 Respiratory Effort / Characteristics Respiratory Depth Respiratory Pattern Blood Pressure 160/82 H Blood Pressure [Right Arm] Blood Pressure Mean 108 Blood Pressure Mean [Right Arm] Blood Pressure Position Blood Pressure Position [Right Arm] Pulse Oximetry 100 100 Oxygen Delivery Method Oxygen Flow Rate Sepsis Recent Fever Within 48 Hours Sepsis New/Unexplained Change in Mental Status Sepsis Action Taken by Nursing End-Tidal CO2 33 04/09/23 21:20 04/09/23 21:20 04/09/23 21:30 Temperature Temperature Source Pulse Rate 59 L Pulse Rate [Right Finger] Pulse Rate from SpO2 Sensor 59 L Pulse Rhythm Pulse Rhythm [Right Finger] Pulse Strength Pulse Strength [Right Finger] Respiratory Rate 17 Respiratory Effort / Characteristics Respiratory Depth Respiratory Pattern Blood Pressure 146/80 H 152/89 H Blood Pressure [Right Arm] Blood Pressure Mean 102 110 Blood Pressure Mean [Right Arm] Blood Pressure Position Blood Pressure Position [Right Arm] Pulse Oximetry 100 Oxygen Delivery Method Oxygen Flow Rate Sepsis Recent Fever Within 48 Hours Sepsis New/Unexplained Change in Mental Status Sepsis Action Taken by Nursing End-Tidal CO2 32 04/09/23 21:30 04/09/23 21:40 04/09/23 21:40 Temperature Temperature Source Pulse Rate 59 L 62 Pulse Rate [Right Finger] Pulse Rate from SpO2 Sensor 59 L 60 Pulse Rhythm Pulse Rhythm [Right Finger] Pulse Strength Pulse Strength [Right Finger] Respiratory Rate 12 10 L Respiratory Effort / Characteristics Respiratory Depth Respiratory Pattern Blood Pressure 149/88 H Blood Pressure [Right Arm] Blood Pressure Mean 108 Blood Pressure Mean [Right Arm] Blood Pressure Position Blood Pressure Position [Right Arm] Pulse Oximetry 95 95 Oxygen Delivery Method Oxygen Flow Rate Sepsis Recent Fever Within 48 Hours Sepsis New/Unexplained Change in Mental Status Sepsis Action Taken by Nursing End-Tidal CO2 31 33 04/09/23 21:50 04/09/23 21:50 04/10/23 00:03 Temperature Temperature Source Pulse Rate 55 L 58 L Pulse Rate [Right Finger] Pulse Rate from SpO2 Sensor 55 L Pulse Rhythm Pulse Rhythm [Right Finger] Pulse Strength Pulse Strength [Right Finger] Respiratory Rate 12 Respiratory Effort / Characteristics Respiratory Depth Respiratory Pattern Blood Pressure 139/77 Blood Pressure [Right Arm] Blood Pressure Mean 97 Blood Pressure Mean [Right Arm] Blood Pressure Position Blood Pressure Position [Right Arm] Pulse Oximetry 100 Oxygen Delivery Method Oxygen Flow Rate Sepsis Recent Fever Within 48 Hours Sepsis New/Unexplained Change in Mental Status Sepsis Action Taken by Nursing End-Tidal CO2 34 04/09/23 22:00 04/09/23 22:11 04/09/23 22:20 Temperature Temperature Source Pulse Rate 57 L 55 L Pulse Rate [Right Finger] Pulse Rate from SpO2 Sensor 57 L 55 L Pulse Rhythm Pulse Rhythm [Right Finger] Pulse Strength Pulse Strength [Right Finger] Respiratory Rate 13 14 14 Respiratory Effort / Characteristics Respiratory Depth Respiratory Pattern Blood Pressure 135/64 130/72 Blood Pressure [Right Arm] Blood Pressure Mean 87 91 Blood Pressure Mean [Right Arm] Blood Pressure Position Blood Pressure Position [Right Arm] Pulse Oximetry 100 91 100 Oxygen Delivery Method Room Air Room Air Oxygen Flow Rate Sepsis Recent Fever Within 48 Hours Sepsis New/Unexplained Change in Mental Status Sepsis Action Taken by Nursing End-Tidal CO2 11 17 33 04/09/23 22:25 04/09/23 22:30 04/09/23 22:35 Temperature Temperature Source Pulse Rate 56 L 57 L 56 L Pulse Rate [Right Finger] Pulse Rate from SpO2 Sensor 56 L 57 L 56 L Pulse Rhythm Pulse Rhythm [Right Finger] Pulse Strength Pulse Strength [Right Finger] Respiratory Rate 12 Respiratory Effort / Characteristics Respiratory Depth Respiratory Pattern Blood Pressure 138/68 142/78 H 137/74 Blood Pressure [Right Arm] Blood Pressure Mean 91 99 95 Blood Pressure Mean [Right Arm] Blood Pressure Position Blood Pressure Position [Right Arm] Pulse Oximetry 100 100 100 Oxygen Delivery Method Room Air Room Air Oxygen Flow Rate Sepsis Recent Fever Within 48 Hours Sepsis New/Unexplained Change in Mental Status Sepsis Action Taken by Nursing End-Tidal CO2 34 33 35 04/09/23 22:40 04/09/23 22:45 04/09/23 22:50 Temperature Temperature Source Pulse Rate 56 L 58 L 58 L Pulse Rate [Right Finger] Pulse Rate from SpO2 Sensor 56 L 58 L 58 L Pulse Rhythm Pulse Rhythm [Right Finger] Pulse Strength Pulse Strength [Right Finger] Respiratory Rate Respiratory Effort / Characteristics Respiratory Depth Respiratory Pattern Blood Pressure 130/78 137/74 144/80 H Blood Pressure [Right Arm] Blood Pressure Mean 95 95 101 Blood Pressure Mean [Right Arm] Blood Pressure Position Blood Pressure Position [Right Arm] Pulse Oximetry 100 100 100 Oxygen Delivery Method Room Air Room Air Oxygen Flow Rate Sepsis Recent Fever Within 48 Hours Sepsis New/Unexplained Change in Mental Status Sepsis Action Taken by Nursing End-Tidal CO2 04/09/23 23:00 04/09/23 23:10 04/09/23 23:20 Temperature Temperature Source Pulse Rate 56 L 62 57 L Pulse Rate [Right Finger] Pulse Rate from SpO2 Sensor 56 L 57 L Pulse Rhythm Pulse Rhythm [Right Finger] Pulse Strength Pulse Strength [Right Finger] Respiratory Rate Respiratory Effort / Characteristics Respiratory Depth Respiratory Pattern Blood Pressure 135/77 132/79 132/75 Blood Pressure [Right Arm] Blood Pressure Mean 96 96 94 Blood Pressure Mean [Right Arm] Blood Pressure Position Blood Pressure Position [Right Arm] Pulse Oximetry 100 100 100 Oxygen Delivery Method Room Air Room Air Nasal Cannula Oxygen Flow Rate 3 Sepsis Recent Fever Within 48 Hours Sepsis New/Unexplained Change in Mental Status Sepsis Action Taken by Nursing End-Tidal CO2 04/09/23 23:24 04/09/23 23:25 04/09/23 23:30 Temperature Temperature Source Pulse Rate 59 L 60 55 L Pulse Rate [Right Finger] Pulse Rate from SpO2 Sensor 61 60 53 L Pulse Rhythm Pulse Rhythm [Right Finger] Pulse Strength Pulse Strength [Right Finger] Respiratory Rate 14 12 11 L Respiratory Effort / Characteristics Respiratory Depth Respiratory Pattern Blood Pressure 150/89 H 142/91 H 144/79 H Blood Pressure [Right Arm] Blood Pressure Mean 109 108 100 Blood Pressure Mean [Right Arm] Blood Pressure Position Blood Pressure Position [Right Arm] Pulse Oximetry 100 100 100 Oxygen Delivery Method Nasal Cannula Nasal Cannula Nasal Cannula Oxygen Flow Rate 3 3 6 Sepsis Recent Fever Within 48 Hours Sepsis New/Unexplained Change in Mental Status Sepsis Action Taken by Nursing End-Tidal CO2 32 32 34 04/09/23 23:35 04/09/23 23:40 04/09/23 23:41 Temperature Temperature Source Pulse Rate 55 L 53 L 56 L Pulse Rate [Right Finger] Pulse Rate from SpO2 Sensor 55 L 53 L 55 L Pulse Rhythm Pulse Rhythm [Right Finger] Pulse Strength Pulse Strength [Right Finger] Respiratory Rate 13 15 14 Respiratory Effort / Characteristics Respiratory Depth Respiratory Pattern Blood Pressure 147/83 H 131/74 126/79 Blood Pressure [Right Arm] Blood Pressure Mean 104 93 94 Blood Pressure Mean [Right Arm] Blood Pressure Position Blood Pressure Position [Right Arm] Pulse Oximetry 100 100 100 Oxygen Delivery Method Nasal Cannula Nasal Cannula Room Air Oxygen Flow Rate 3 3 Sepsis Recent Fever Within 48 Hours Sepsis New/Unexplained Change in Mental Status Sepsis Action Taken by Nursing End-Tidal CO2 33 35 35 04/09/23 23:45 04/09/23 23:50 04/09/23 23:55 Temperature Temperature Source Pulse Rate 53 L 52 L 53 L Pulse Rate [Right Finger] Pulse Rate from SpO2 Sensor 53 L 51 L 53 L Pulse Rhythm Pulse Rhythm [Right Finger] Pulse Strength Pulse Strength [Right Finger] Respiratory Rate 15 18 15 Respiratory Effort / Characteristics Respiratory Depth Respiratory Pattern Blood Pressure 129/76 134/71 132/82 Blood Pressure [Right Arm] Blood Pressure Mean 93 92 98 Blood Pressure Mean [Right Arm] Blood Pressure Position Blood Pressure Position [Right Arm] Pulse Oximetry 100 100 100 Oxygen Delivery Method Room Air Room Air Room Air Oxygen Flow Rate Sepsis Recent Fever Within 48 Hours Sepsis New/Unexplained Change in Mental Status Sepsis Action Taken by Nursing End-Tidal CO2 34 34 32 04/10/23 00:00 04/10/23 00:05 Temperature Temperature Source Pulse Rate 54 L 56 L Pulse Rate [Right Finger] Pulse Rate from SpO2 Sensor 54 L 56 L Pulse Rhythm Pulse Rhythm [Right Finger] Pulse Strength Pulse Strength [Right Finger] Respiratory Rate 13 15 Respiratory Effort / Characteristics Respiratory Depth Respiratory Pattern Blood Pressure 133/75 138/74 Blood Pressure [Right Arm] Blood Pressure Mean 94 95 Blood Pressure Mean [Right Arm] Blood Pressure Position Blood Pressure Position [Right Arm] Pulse Oximetry 100 100 Oxygen Delivery Method Room Air Room Air Oxygen Flow Rate Sepsis Recent Fever Within 48 Hours Sepsis New/Unexplained Change in Mental Status Sepsis Action Taken by Nursing End-Tidal CO2 33 Laboratory Data 04/09/23 20:00 04/09/23 20:00 Lab Results 04/09/23 04/09/23 04/09/23 Range/Units 20:00 20:00 20:00 WBC 2.78 L (4.8-10.8) K/ul RBC 3.69 L (4.20-5.40) M/uL Hgb 11.1 L (12.0-16.0) g/dl Hct 32.0 L (37.0-47.0) % MCV 86.7 (80.0-100.0) fL MCH 30.1 (25.0-34.0) pg MCHC 34.7 (32.0-36.0) g/dL RDW Std Deviation 39.8 (36.4-46.3) fL RDW Coeff of [place] 12.4 (11.5-14.5) % Plt Count 221 (130-400) K/uL MPV 9.4 (9.4-12.4) fL Immature Gran % (Auto) 0.0 % Neut % (Auto) 60.4 % Lymph % (Auto) 20.1 % Brooks % (Auto) 18.7 % Eos % (Auto) 0.4 % Baso % (Auto) 0.4 % Neut # (Auto) 1.68 (1.40-6.50) K/uL Lymph # (Auto) 0.56 L (1.2-3.4) K/uL Brooks # (Auto) 0.52 (0.11-0.59) K/uL Eos # (Auto) 0.01 (0-0.50) K/uL Baso # (Auto) 0.01 (0-0.2) K/uL Immature Gran # (Auto) 0.00 L (0.01-0.20) K/uL PT 12.1 H (9.0-12.0) Seconds INR 1.1 (0.9-1.1) APTT 27.1 (21.0-31.0) Seconds PTT Ratio 1.0 Sodium 125 L (136-145) mmol/L Potassium 4.4 (3.5-5.1) mmol/L Chloride 90 L (98-107) mmol/L Carbon Dioxide 28 (21-32) mmol/L Anion Gap 7 (3-11) BUN 18 (6-23) mg/dl Creatinine 0.59 L (0.6-1.2) mg/dl Est Cr Clr Drug Dosing 54.9 ml/min Est GFR ( Amer) 103.9 ml/min Est GFR (Non-Af Amer) 89.7 ml/min BUN/Creatinine Ratio 30.5 H (10-20) Glucose 80 (70-99(Fasting)) mg/dl Calcium 8.6 (8.6-10.3) mg/dl Total Bilirubin 0.3 (0.2-1.0) mg/dl AST 34 (13-39) U/L ALT 19 (7-52) U/L Alkaline Phosphatase 51 (34-104) U/L Total Protein 6.6 (6.0-8.3) gm/dl Albumin 3.9 (3.4-5.0) gm/dl Globulin 2.7 (2.5-4.0) gm/dl Albumin/Globulin Ratio 1.4 (0.9-2) Urine Color Urine Appearance (Clear) Urine pH (4.5-7.5) Ur Specific [place] (1.000-1.030) Urine Protein (Negative) Urine Glucose (UA) (Negative) Urine Ketones (Negative) Urine Blood (Negative) Urine Nitrite (Negative) Urine Bilirubin (Negative) Urine Urobilinogen (Negative) Ur Leukocyte Esterase (Negative) 04/09/23 Range/Units 21:40 WBC (4.8-10.8) K/ul RBC (4.20-5.40) M/uL Hgb (12.0-16.0) g/dl Hct (37.0-47.0) % MCV (80.0-100.0) fL MCH (25.0-34.0) pg MCHC (32.0-36.0) g/dL RDW Std Deviation (36.4-46.3) fL RDW Coeff of [place] (11.5-14.5) % Plt Count (130-400) K/uL MPV (9.4-12.4) fL Immature Gran % (Auto) % Neut % (Auto) % Lymph % (Auto) % Brooks % (Auto) % Eos % (Auto) % Baso % (Auto) % Neut # (Auto) (1.40-6.50) K/uL Lymph # (Auto) (1.2-3.4) K/uL Brooks # (Auto) (0.11-0.59) K/uL Eos # (Auto) (0-0.50) K/uL Baso # (Auto) (0-0.2) K/uL Immature Gran # (Auto) (0.01-0.20) K/uL PT (9.0-12.0) Seconds INR (0.9-1.1) APTT (21.0-31.0) Seconds PTT Ratio Sodium (136-145) mmol/L Potassium (3.5-5.1) mmol/L Chloride (98-107) mmol/L Carbon Dioxide (21-32) mmol/L Anion Gap (3-11) BUN (6-23) mg/dl Creatinine (0.6-1.2) mg/dl Est Cr Clr Drug Dosing ml/min Est GFR ( Amer) ml/min Est GFR (Non-Af Amer) ml/min BUN/Creatinine Ratio (10-20) Glucose (70-99(Fasting)) mg/dl Calcium (8.6-10.3) mg/dl Total Bilirubin (0.2-1.0) mg/dl AST (13-39) U/L ALT (7-52) U/L Alkaline Phosphatase (34-104) U/L Total Protein (6.0-8.3) gm/dl Albumin (3.4-5.0) gm/dl Globulin (2.5-4.0) gm/dl Albumin/Globulin Ratio (0.9-2) Urine Color Yellow Urine Appearance Clear (Clear) Urine pH 8.0 H (4.5-7.5) Ur Specific [place] 1.004 (1.000-1.030) Urine Protein Negative (Negative) Urine Glucose (UA) Negative (Negative) Urine Ketones Negative (Negative) Urine Blood Negative (Negative) Urine Nitrite Negative (Negative) Urine Bilirubin Negative (Negative) Urine Urobilinogen Negative (Negative) Ur Leukocyte Esterase Negative (Negative) Administered Medications Discontinued Medications Amlodipine Besylate (Amlodipine Besylate 5 Mg Tab) 2.5 mg PO DAILY [facility] Stop: 05/10/23 08:59 Last Admin: 04/11/23 09:13 Dose: 2.5 mg Documented By: Admin: 04/10/23 09:04 Dose: 2.5 mg Documented By: YOMI Aspirin (Aspirin 81 Mg Ectab) 81 mg PO DAILY [facility] Stop: 05/10/23 08:59 Last Admin: 04/11/23 09:13 Dose: 81 mg Documented By: Admin: 04/10/23 09:04 Dose: 81 mg Documented By: YOMI Atorvastatin Calcium (Atorvastatin 40 Mg Tab) 40 mg PO QAM [facility] Stop: 05/10/23 08:59 Last Admin: 04/11/23 09:15 Dose: 40 mg Documented By: Admin: 04/10/23 09:05 Dose: 40 mg Documented By: YOMI Clopidogrel Bisulfate (Clopidogrel Bisulfate 75 Mg Tab) 75 mg PO DAILY [facility] Stop: 05/10/23 08:59 Last Admin: 04/11/23 09:15 Dose: 75 mg Documented By: Admin: 04/10/23 09:05 Dose: 75 mg Documented By: YOMI Docusate Sodium (Docusate Sodium 100 Mg Cap) 100 mg PO BID [facility] Stop: 05/10/23 08:59 Last Admin: 04/11/23 09:14 Dose: 100 mg Documented By: Admin: 04/10/23 19:37 Dose: 100 mg Documented By: Admin: 04/10/23 09:06 Dose: 100 mg Documented By: YOMI Fentanyl Citrate (Fentanyl Citrate Pf 100 Mcg/2 Ml Vial) 25 mcg IV NOW ONE Stop: 04/09/23 19:55 Last Admin: 04/09/23 20:05 Dose: 25 mcg Documented By: RAI Ferrous Sulfate (Ferrous Sulfate 325 Mg Tab) [facility] [place] Stop: 05/10/23 08:59 Last Admin: 04/11/23 09:15 Dose: 325 mg Documented By: Admin: 04/10/23 09:06 Dose: 325 mg Documented By: YOMI Fluticasone Propionate (Fluticasone Propionate Na Spr 16 Gm Btl) 2 sprays NA DAILY [facility] Stop: 05/10/23 08:59 Last Admin: 04/11/23 12:20 Dose: 2 sprays Documented By: Admin: 04/10/23 09:03 Dose: 2 sprays Documented By: YOMI Furosemide (Furosemide 20 Mg Tab) [facility] [place] Stop: 05/10/23 08:59 Last Admin: 04/10/23 09:07 Dose: 30 mg Documented By: YOMI Furosemide (Furosemide 40 Mg Tab) 40 mg PO QAM [facility] Stop: 05/11/23 08:59 Last Admin: 04/11/23 09:14 Dose: 40 mg Documented By: ALIREZA Heparin Sodium (Porcine) (Heparin Sod 5,000 Unit/0.5 Ml Vial) 5,000 units SQ Q12 [facility] Stop: 05/10/23 08:59 Last Admin: 04/11/23 09:14 Dose: 5,000 units Documented By: Admin: 04/10/23 19:37 Dose: 5,000 units Documented By: Admin: 04/10/23 09:08 Dose: 5,000 units Documented By: YOMI Hydroxychloroquine Sulfate (Hydroxychloroquine Sulfate 200 Mg Tab) 200 mg PO HS [facility] Stop: 05/10/23 20:59 Last Admin: 04/10/23 19:37 Dose: 200 mg Documented By: MELINA Sodium Chloride (Nss 1000ml) 1,000 mls @ 100 mls/hr IV .Q10H [facility] Stop: 04/10/23 05:59 Last Infusion: 04/10/23 06:26 Dose: 0 mls/hr Documented By: Admin: 04/09/23 20:06 Dose: 100 mls/hr Documented By: RAI Acetaminophen (Ofirmev) 1,000 mg in 100 mls @ 400 mls/hr IV NOW STA Stop: 04/09/23 20:11 Last Infusion: 04/09/23 20:43 Dose: 0 mls/hr Documented By: Admin: 04/09/23 20:04 Dose: 400 mls/hr Documented By: RAI Sodium Chloride (Nss 1000ml) 1,000 mls @ 50 mls/hr IV .Q20H [facility] Stop: 05/10/23 01:30 Last Infusion: 04/10/23 09:02 Dose: 0 mls/hr Documented By: Admin: 04/10/23 03:33 Dose: 50 mls/hr Documented By: RAI Dextrose (D5w) 1,000 mls @ 75 mls/hr IV .[id number] [facility] Stop: 05/10/23 07:14 Last Infusion: 04/10/23 10:39 Dose: 0 mls/hr Documented By: Admin: 04/10/23 09:00 Dose: 75 mls/hr Documented By: YOMI Lactobacillus Acidophilus (Advanced Probiotic 1250 Mg Capsule) 2 cap PO QAM [facility] Stop: 05/10/23 08:59 Last Admin: 04/11/23 09:15 Dose: 2 cap Documented By: Admin: 04/10/23 09:08 Dose: 2 cap Documented By: YOMI Levothyroxine Sodium (Levothyroxine Sodium 112 Mcg Tablet) 112 mcg PO DAILYBB [facility] Stop: 05/10/23 06:29 Last Admin: 04/11/23 05:30 Dose: 112 mcg Documented By: Admin: 04/10/23 06:46 Dose: 112 mcg Documented By: RAI Lisinopril (Lisinopril 2.5 Mg Tab) 2.5 mg PO DAILY [facility] Stop: 05/10/23 08:59 Last Admin: 04/11/23 09:14 Dose: 2.5 mg Documented By: Admin: 04/10/23 09:08 Dose: 2.5 mg Documented By: YOMI Loratadine (Loratadine 10 Mg Tab) 10 mg PO DAILY [facility] Stop: 05/10/23 08:59 Last Admin: 04/11/23 09:14 Dose: 10 mg Documented By: Admin: 04/10/23 09:09 Dose: 10 mg Documented By: YOMI Metoprolol Succinate (Metoprolol Succ 25mg Ext Rel Tab) 25 mg PO DAILY [facility] Stop: 05/10/23 08:59 Last Admin: 04/11/23 09:15 Dose: 25 mg Documented By: Admin: 04/10/23 09:09 Dose: 25 mg Documented By: YOMI Miscellaneous (Tacrolimus 0.1 % Ointment - Order Awaiting Action) 1 each N/A QS [facility] Stop: 05/10/23 07:59 Last Admin: 04/11/23 15:18 Dose: Not Given Documented By: Admin: 04/11/23 09:07 Dose: Not Given Documented By: Admin: 04/10/23 23:21 Dose: Not Given Documented By: Admin: 04/10/23 15:14 Dose: Not Given Documented By: Admin: 04/10/23 09:03 Dose: Not Given Documented By: YOMI Morphine Sulfate (Morphine Sulfate 2 Mg/Ml Carp) 2 mg IV NOW STA Stop: 04/09/23 20:31 Last Admin: 04/09/23 20:40 Dose: 2 mg Documented By: RAI Morphine Sulfate (Morphine Sulfate 2 Mg/Ml Carp) 2 mg IV NOW STA Stop: 04/10/23 00:51 Last Admin: 04/10/23 01:09 Dose: 2 mg Documented By: RAI Multivitamins (Multivitamin Tab) 1 tab PO DAILY [facility] Stop: 05/10/23 08:59 Last Admin: 04/11/23 09:12 Dose: 1 tab Documented By: Admin: 04/10/23 09:10 Dose: 1 tab Documented By: YOMI Polyethylene Glycol (Polyethylene (Miralax) 17 Gm Pack) 17 gm PO QAM [facility] Stop: 05/10/23 08:59 Last Admin: 04/11/23 09:14 Dose: 17 gm Documented By: Admin: 04/10/23 09:11 Dose: 17 gm Documented By: YOMI Propofol (Propofol Iv Emulsion 10 Mg/Ml 20 Ml Vial) 200 mg IV NOW STA Stop: 04/09/23 21:02 Last Admin: 04/09/23 23:36 Dose: 50 mg Documented By: TIA Co-signed By: RAI Vitamin D (Cholecalciferol 1,000 Units 25 Mcg Tab) 2,000 units PO QAM [facility] Stop: 05/10/23 08:59 Last Admin: 04/11/23 09:15 Dose: 2,000 units Documented By: Admin: 04/10/23 09:06 Dose: 2,000 units Documented By: YOMI Zinc Sulfate (Zinc Sulfate 220 Mg Capsule) [facility] [place] Stop: 05/10/23 08:59 Last Admin: 04/11/23 09:14 Dose: 220 mg Documented By: Admin: 04/10/23 09:10 Dose: 220 mg Documented By: YOMI Discharge Plan Visit Data Chief Complaint: Leg Injury/Pain Stated Complaint: hip/leg pain ED Provider: Fe Bardales Discharge Problem: Anterior dislocation of left hip Patient Disposition: Admitted As Inpatient Discharge Instructions Interventions: ED Discharge Assessment Last Done: 04/10/23 01:30
--- NOTE | 2023-04-10 02:43 | History and Physical Report ---
DATE OF ADMISSION: 04/10/2023. CHIEF COMPLAINT: Left hip dislocation. HISTORY OF PRESENT ILLNESS: This is a 77-year-old female with past medical history significant for SIADH, hypothyroidism, hyperlipidemia, history of reactive hypoglycemia, history of allergic rhinitis, chronic diastolic CHF, history of CAD, status post stent to LAD, history of hypertension, legal blindness, history of retinal artery occlusion. The patient says she can ambulate without support at home because she has some peripheral vision in the right eye and all the stuff in house at same place. History of orthostatic hypotension, Raynaud disease, constipation, osteoporosis, SLE, generalized anxiety disorder, cachectic state, chronic anemia,CVA, presents with left hip dislocation. This is the third episode for left hip dislocation. She was just standing and the other leg gave way and had left hip dislocation. The hip was reduced in the ER. She has pain and we are called for admission.Also her sodium is 125. Denies any chest pain. No shortness of breath, no cough, no fevers, no nausea, no abdominal pain. Normal bowel and bladder movements. No headache, no dizziness. Somewhat hard of hearing, legally blind. No runny nose, no sore throat. No cough. Appetite is okay. Hemodynamically stable. ALLERGIES: EFFEXOR, SULFA ANTIBIOTICS, AND TOMATO. PAST MEDICAL HISTORY: As mentioned above. PAST SURGICAL HISTORY: Colonoscopy, excision of breast lesion, lumbar laminectomy, right partial mastectomy, wrist fracture-dislocation, total abdominal hysterectomy with removal of tubes, total hip replacement. MEDICATIONS: The patient is on amlodipine 2.5 mg p.o. daily, aspirin 81 mg p.o. daily, atorvastatin 40 mg p.o. daily, vitamin D 2000 units p.o. daily, clobetasol topical p.r.n. for flare of lupus, Plavix 75 mg p.o. daily, cyclosporine 1 drop ophthalmic b.i.d., Colace 100 mg p.o. b.i.d., ferrous sulfate 325 mg p.o. a.m., Flonase 2 sprays intranasal daily, Lasix 40 mg p.o. daily, Plaquenil 200 mg p.o. at bedtime, levothyroxine 112 mcg p.o. daily, lisinopril 2.5 mg p.o. daily, loratadine 10 mg p.o. daily, metoprolol succinate 25 mg p.o. daily, multivitamin 1 tablet p.o. daily, nitroglycerin 0.4 mg sublingually daily p.r.n., MiraLax 17 g p.o. daily, probiotic 1 tablet daily, Prolia 60 mg subcutaneous every 6 months, tacrolimus application topical b.i.d., zinc acetate 50 mg p.o. daily. FAMILY HISTORY: Significant for daughter has endometrial cancer. Father had heart attack in his 50s. Mother has lymphoma, thyroid cancer, uterine cancer. SOCIAL HISTORY: . Former smoker, quit in 1985, smoked half pack a day for 15 years. Alcohol, rarely. No drug use. REVIEW OF SYSTEMS: As per HPI. Rest of the review of systems is negative. PHYSICAL EXAMINATION: GENERAL: The patient is thin and frail, not in acute distress. VITAL SIGNS: Temperature 36.5, pulse 56, respiratory rate 15, blood pressure 138/74, oxygen 100% on room air. HEENT: Pupils, legally blind. Atraumatic. No facial droop. Oral mucosa dry. NECK: No JVD. No neck masses. CARDIOVASCULAR: S1 and S2 heard. Regular rate and rhythm. No murmur, no gallop. RESPIRATORY SYSTEM: Normal AP diameter. No accessory muscle use. No wheezing or crackles. ABDOMEN: Soft, bowel sounds present, nontender, no distention. CENTRAL NERVOUS SYSTEM: Alert and awake. No facial droop. Insight is okay. Moves extremities. EXTREMITIES: Status post dislocation of left hip, which is replaced. No edema or erythema seen. LABORATORY DATA: WBC 2.7, hemoglobin 11.1, hematocrit 32, platelets 221. PT 12.1, INR 1.1, APTT 27.1. Sodium 125, potassium 4.4, chloride 97, CO2 of 28, BUN 18, creatinine 0.5, serum glucose 80, calcium 8.6, total bilirubin 0.3, AST 34, ALT 39, alkaline phosphatase 51. Urinalysis negative. IMAGING DATA: Chest x-ray, no acute findings. Hip x-ray, dislocation of left hip. EKG: Normal sinus rhythm, rate of 65, no acute ST changes seen. ASSESSMENT AND PLAN: 1. This is a 77-year-old female, presents with left hip dislocation, which is recurrent, reduced in the ER, looks like third episode. There is plan for surgical repair by orthopedics. Will consult Orthopedics.. Pain control. PT/OT. Monitor in the hospital. 2. Hyponatremia, history of syndrome of inappropriate antidiuretic hormone secretion. Getting normal saline 50 mL per hour. Fluid restriction, 1200 mL per day. Follow urine osmolality, serum osmolality, serum sodium levels. Consult nephrology in the a.m. 3. History of coronary artery disease, status post stent. 4. History of myocardial infarction. On aspirin, Plavix, statin and beta maría. Currently stable. 5. History of hypertension. On metoprolol succinate, lisinopril, amlodipine and Lasix. We will monitor the blood pressure. 6. History of chronic diastolic congestive heart failure. On Lasix and gentle fluids. Monitor for volume overload. 7. Hyperlipidemia. On statin. 8. Chronic constipation. On stool softeners. 9. History of systemic lupus erythematosus. On Plaquenil. 10. Deep venous thrombosis prophylaxis. Sequential compression devices. Addendum: Am labs sodium 133. Changed fluids to d5w@75ml/hr. Follow labs closely. Await Nephro inputs. DISPOSITION: Closely monitor in the medical floor. PT/OT prior to discharge. Social service to help with discharge planning. Level 1 full code. Job ID: [id number] [facility]
[2023-04-10 04:59] LABS: Basophils # (auto) 0.02 K/uL (0-0.2); Basophils % (auto) 0.7 %; Eosinophils # (auto) 0.02 K/uL (0-0.50); Eosinophils % (auto) 0.7 %; Hematocrit (blood only) 30.9 % (37.0-47.0); Hemoglobin 10.6 g/dl (12.0-16.0); Immature Granulocytes # (auto) 0.01 K/uL (0.01-0.20); Immature Granulocytes % (auto) 0.3 %; Lymphocytes # (auto) 0.52 K/uL (1.2-3.4); Lymphocytes % (auto) 17.3 %; Mean Corpuscular Hemoglobin 30.3 pg (25.0-34.0); Mean Corpuscular Hgb Conc 34.3 g/dL (32.0-36.0); Mean Corpuscular Volume 88.3 fL (80.0-100.0); Mean Platelet Volume 9.1 fL (9.4-12.4); Monocytes % (auto) 16.6 %; Neutrophils # (auto) 1.94 K/uL (1.40-6.50); Neutrophils % (auto) 64.4 %; Platelet Count 204 K/uL (130-400); RDW Coefficient of Variation 12.5 % (11.5-14.5); RDW Standard Deviation 39.8 fL (36.4-46.3); White Blood Count 3.01 K/ul (4.8-10.8)
[2023-04-10 05:12] LABS: BUN Creatinine Ratio 27.3 (10-20); Calcium 7.6 mg/dl (8.6-10.3); Creatinine Clr Calc Pharmacy 73.6 ml/min; Est GFR (African American) 114.4 ml/min; Est GFR (Non-African American) 98.7 ml/min; Potassium 3.9 mmol/L (3.5-5.1)
--- NOTE | 2023-04-10 06:41 | XRay Report ---
XR hip LT min 2V CLINICAL HISTORY: Left hip dislocation with pain. COMPARISON STUDY: None. FINDINGS: There is anterior/superior dislocation of the left femoral prosthesis in relation to the ac etabular cup. No acute fractures identified. Lumbar spinal fusion hardware is noted. IMPRESSION: Dislocated left femoral prosthesis. No acute fractures. ACT 112: Negative or not required by law. Electronically signed by: Tung Godinez M.D. 04/10/2023 6:40 AM
--- NOTE | 2023-04-10 06:45 | XRay Report ---
XR chest 1V portable HISTORY: Preop. COMPARISON: Chest 02/02/2023. FINDINGS: The cardiac silhouette remains top normal in size. A coronary artery stent is noted. There are calcifications within the aortic knob. No new focal lung consolidations to suggest a pneumonia. N o evidence for pulmonary edema. Stable 9 mm right perihilar nodular density which may represent a tor tuous vessel or calcified granuloma. Otherwise, lungs are clear. Healing left lower rib fractures aga in noted. IMPRESSION: No significant change compared to the prior study. No acute process. ACT 112: Negative or not required by law. Electronically signed by: Tung Godinez M.D. 04/10/2023 6:43 AM
[2023-04-10] MEDS: LEVOTHYROXINE SODIUM 112 MCG TABLET PO SCH (06:46)
--- NOTE | 2023-04-10 07:02 | XRay Report ---
XR hip LT min 2V CLINICAL HISTORY: post reduction. Left hip dislocation. COMPARISON STUDY: Left hip 04/09/2023. FINDINGS: Interval reduction of the left femoral prosthesis dislocation. Alignment appears anatomic. No acute fractures within the left hip. Lumbar spinal fusion hardware is again noted. IMPRESSION: Status post reduction of the left femoral prosthesis dislocation. The alignment appears anatomic. No acute fractures. ACT 112: Negative or not required by law. Electronically signed by: Tung Godinez M.D. 04/10/2023 7:01 AM
[2023-04-10] MEDS ORDERED: DEXTROSE 5% 1,000 ML IV SCH (07:15)
[2023-04-10] MEDS ORDERED: ARTIFICIAL TEARS OP PRN (09:00)
[2023-04-10] MEDS ORDERED: FUROSEMIDE 20 MG TAB PO SCH (09:00)
[2023-04-10] MEDS: FLUTICASONE PROPIONATE NA SPR 16 GM BTL SCH (09:03)
[2023-04-10] MEDS: amLODIPine BESYLATE 5 MG TAB PO SCH (09:04)
[2023-04-10] MEDS: ASPIRIN 81 MG ECTAB PO SCH (09:04)
[2023-04-10] MEDS: CLOPIDOGREL BISULFATE 75 MG TAB PO SCH (09:05)
[2023-04-10] MEDS: ATORVASTATIN 40 MG TAB PO SCH (09:05)
[2023-04-10] MEDS: CHOLECALCIFEROL 1,000 UNITS 25 MCG TAB PO SCH (09:06)
[2023-04-10] MEDS: DOCUSATE SODIUM 100 MG CAP PO SCH ×2 (09:06→19:37)
[2023-04-10] MEDS: FERROUS SULFATE 325 MG TAB PO SCH (09:06)
[2023-04-10] MEDS: HEPARIN SOD 5,000 UNIT/0.5 ML VIAL SQ SCH ×2 (09:08→19:37)
[2023-04-10] MEDS: ADVANCED PROBIOTIC 1250 MG CAPSULE PO SCH (09:08)
[2023-04-10] MEDS: lisinopril 2.5 MG TAB PO SCH (09:08)
[2023-04-10] MEDS: METOPROLOL SUCC 25MG EXT REL TAB PO SCH (09:09)
[2023-04-10] MEDS: LORATADINE 10 MG TAB PO SCH (09:09)
[2023-04-10] MEDS: MULTIVITAMIN TAB PO SCH (09:10)
[2023-04-10] MEDS: ZINC SULFATE 220 MG CAPSULE PO SCH (09:10)
[2023-04-10] MEDS: POLYETHYLENE (MIRALAX) 17 GM PACK PO SCH (09:11)
--- NOTE | 2023-04-10 10:52 | Electrocardiogram Report ---
Test Reason : Blood Pressure : / mmHG Vent. Rate : 065 BPM Atrial Rate : 065 BPM P-R Int : 178 ms QRS Dur : 076 ms QT Int : 412 ms P-R-T Axes : 077 048 069 degrees QTc Int : 428 ms Normal sinus rhythm Septal infarct , age undetermined Abnormal ECG When compared with ECG of 02-FEB-2023 13:56, Septal infarct is now Present Confirmed by Aaron Garzon ([id number]) on 04/10/2023 10:51:51 AM Referred By: REFERRED SELF Confirmed By:Aaron Garzon
[2023-04-10 11:08] LABS: BUN Creatinine Ratio 22.4 (10-20); Creatinine Clr Calc Pharmacy 66.1 ml/min; Est GFR (African American) 110.5 ml/min; Est GFR (Non-African American) 95.3 ml/min; Potassium 3.3 mmol/L (3.5-5.1)
[2023-04-10 17:51] LABS: BUN Creatinine Ratio 23.4 (10-20); Creatinine Clr Calc Pharmacy 42.1 ml/min; Est GFR (African American) 87.5 ml/min; Est GFR (Non-African American) 75.5 ml/min; Potassium 3.9 mmol/L (3.5-5.1)
--- NOTE | 2023-04-10 18:05 | Orthopedic Consultation ---
Date of Consultation April 10, 2023 Assessment & Plan (1) Dislocation of hip, left, closed: Recurrent dislocation left total hip arthroplasty. Patient is scheduled for revision total hip arthroplasty with Dr. Rey on April 24. Currently patient is doing well. She can weight-bear as tolerated. Discussed to precautions. Consider knee immobilizer which patient has previously been given. Patient is orthopedically stable for discharge. Follow-up with Dr. eRy as scheduled for surgical intervention. All questions answered. Orthopedics will sign off at this time. Thank you for this consultation. Please call with any questions or concerns. History of Present Illness Reason for Consultation: Recurrent left hip dislocation Requesting Physician: Dr. Vieyra Attending Physician: Cosme Gamboa MD History of Present Illness 77-year-old female with past medical history significant for SIADH, hypothyroidism, hyperlipidemia, history of reactive hypoglycemia, history of allergic rhinitis, chronic diastolic CHF, history of CAD, status post stent to LAD, history of hypertension, legal blindness, history of retinal artery occlusion. She presented to the ER last night with complaint of left hip dislocation. She was in her usual state of health and was ambulating without her walker. Her right foot caught the ground and she stumbled causing her to dislocate her left hip. This was reduced in the ER. This is patient's third dislocation. She has history of left total hip replacement by Dr. Chirinos about 10 or so years ago. Patient is under the care of Dr. Rey and is scheduled for revision total hip arthroplasty on April 24. Allergies Allergy/AdvReac Type Severity Reaction Status Date / Time venlafaxine Allergy Mild RASH Verified 02/02/23 17:38 Sulfa (Sulfonamide Allergy Unknown UNKNOWN Verified 02/02/23 17:38 Antibiotics) REACTION TO SULFA DRUGS tomato AdvReac Unknown Verified 02/02/23 17:38 Home Medications Medication Instructions Recorded Confirmed Type atorvastatin 40 mg tablet 40 mg PO QAM 03/04/19 04/10/23 History cholecalciferol (vitamin D3) 25 2,000 unit PO QAM 03/04/19 04/10/23 History mcg (1,000 unit) capsule (Vitamin D3) clobetasol 0.05 % shampoo 1 applic topical DIRECTED PRN 03/04/19 04/10/23 History for flare up of lupus docusate sodium 100 mg capsule 100 mg PO BID 03/04/19 04/10/23 History (Colace) hydroxychloroquine 200 mg tablet 200 mg PO HS 03/04/19 04/10/23 History (Plaquenil) lactobacillus combination no.4 3 3,000 mmu cells PO QAM 03/04/19 04/10/23 History billion cell capsule (Probiotic) polyethylene glycol 3350 8.5 gram 17 g PO QAM 03/04/19 04/10/23 History oral powder packet lisinopril 2.5 mg tablet 2.5 mg PO DAILY 08/14/22 04/10/23 History metoprolol succinate 25 mg 25 mg PO DAILY 08/14/22 04/10/23 History tablet,extended release 24 hr aspirin 81 mg tablet,delayed 81 mg PO DAILY #1 tab 08/15/22 04/10/23 Rx release clobetasol 0.05 % topical cream 1 applic topical BID PRN .FLARES 12/31/22 04/10/23 History clopidogrel 75 mg tablet 75 mg PO DAILY 12/31/22 04/10/23 History cyclosporine 0.05 % eye drops in a 1 drp OPB Q12H PRN Dry Eye(S) 12/31/22 04/10/23 History dropperette denosumab 60 mg/mL subcutaneous 60 mg subcut Q6M 12/31/22 04/10/23 History syringe (Prolia) ferrous sulfate 325 mg (65 mg 325 mg PO QAM 12/31/22 04/10/23 History iron) tablet fluticasone propionate 50 2 spray intranasal DAILY PRN 12/31/22 04/10/23 History mcg/actuation nasal Allergy Symptoms spray,suspension furosemide 20 mg tablet 30 mg PO QAM 12/31/22 04/10/23 History loratadine 10 mg tablet 10 mg PO DAILY PRN Allergy Symptoms 12/31/22 04/10/23 History multivitamin 1 tab PO DAILY 12/31/22 04/10/23 History nitroglycerin 0.4 mg sublingual 0.4 mg sublingual .DAILY/PRN PRN 12/31/22 04/10/23 History tablet Chest Pain tacrolimus 0.1 % topical ointment 1 applic topical BID PRN flare up 12/31/22 04/10/23 History of lupus zinc acetate 50 mg (zinc) capsule 50 mg PO QAM 12/31/22 04/10/23 History levothyroxine 100 mcg tablet 112 mcg PO DAILY 02/02/23 04/10/23 History (Synthroid) amlodipine 2.5 mg tablet 2.5 mg PO BID 04/10/23 04/10/23 History Patient History Medical History CAD (coronary artery disease) Chronic back pain Coronary artery disease s/p 5 stents in 2017 Degenerative disc disease Diastolic heart failure EF 58%, follows with [facility] cardio GERD (gastroesophageal reflux disease) diet controlled History of blood transfusion "with every surgery" Hypertension controlled, stable per pt Hypoglycemia with associated syncope, last syncopal episode colonoscopy fasting 8 yrs ago Hypothyroidism Myocardial Infarction (~2016) follows with Dr Jean Baptiste On anticoagulant therapy Raynaud's disease SIADH (syndrome of inappropriate ADH production) 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 no longer sees a neurologist. Systemic lupus follows with [facility] Rheumatology Surgical History History of cardiac cath (~2016) at [facility] -5 stents-2017 History of cataract surgery bilateral History of colonoscopy History of esophagogastroduodenoscopy (EGD) History of heart artery stent (~2016) x5 stents (at [facility]) History of open reduction and internal fixation (ORIF) procedure right wrist History of tonsillectomy History of total hip arthroplasty left Hx of vaginal hysterectomy S/P lumbar fusion x2 Family History Other No family history of adverse response to anesthesia Social History Smoking Status: Never smoker Tobacco Type: Cigarettes Cigarettes Per Day: 6-8; Second Hand Exposure: No; Do You Dip or Chew Tobacco: No; Tobacco Cessation Education Requested by Patient: No Hx Alcohol Use: No Hx Substance Use: No Preferred Language: Vietnamese Communication Ability: Effective Communication Ability Comment: legally blind Visual Impairment: No Limitations Hearing Ability: Normal 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 Beliefs That Will Affect Care: None marital status: Current Living Situation: Spouse Current Living Situation Comment: Lives at home with current occupational status: retired Other Information That Helps Us Care for You: No Feels Safe at Home: No Is there a partner from a previous relationship who is making you feel unsafe now?: No Any Concerns about Your Family Situation: No Would You Like to Speak to Someone About Your Situation: No Safety Concerns: Afraid for Self Assistive Devices: Glasses, Hearing Aid - Bilateral and Walker Physical Exam Constitutional: WD/WN, vitals as above Eyes: PERRL, conjunctivae normal, anicteric sclerae Respiratory: normal respiratory effort; no respiratory distress Cardiovascular: Rate/Rhythm: regular rate and regular rhythm Musculoskeletal: Left hip: No tenderness about the left hip. No pain with gentle logroll. Leg lengths are equal. Patient has not shortened or externally rotated. No calf tenderness. Distally neurovascular status and sensation is grossly intact. Skin: no rashes, warm and dry Psychiatric: A+Ox3, euthymic affect Results & Data Vital Signs (Past 12 Hours) Vital Signs Temp Pulse Pulse Resp BP Pulse Ox O2 Del Method 04/10/23 17:41 64 04/10/23 16:00 37.2 C 65 122/66 99 Room Air 04/10/23 16:10 83 18 124/64 99 Room Air 04/10/23 15:12 70 04/10/23 08:58 68 13 144/73 H 96 Room Air 04/10/23 07:09 53 L Diagnostic Findings XR hip LT min 2V CLINICAL HISTORY: post reduction. Left hip dislocation. COMPARISON STUDY: Left hip 04/09/2023. FINDINGS: Interval reduction of the left femoral prosthesis dislocation. Alignment appears anatomic. No acute fractures within the left hip. Lumbar spinal fusion hardware is again noted. IMPRESSION: Status post reduction of the left femoral prosthesis dislocation. The alignment appears anatomic. No acute fractures
[2023-04-10] MEDS ORDERED: HYDROXYCHLOROQUINE SULFATE 200 MG TAB PO SCH (21:00)
--- NOTE | 2023-04-10 21:21 | Consultation Report ---
NEPHROLOGY CONSULTATION NOTE REASON FOR CONSULTATION: Hyponatremia. 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 Her sodium usually runs in the high 120s. She presented to the hospital because of recurrent hip dislocation in the left side causing some pain. This is the third episode of left hip dislocation. She is supposed to have hip surgery done on 04/24/2022 by [facility]. At this time, she does not have significant pain. She was able to give a detailed account of her history. She has been losing weight quite steadily and at this time she only weighs 42 kg. Sodium on admission was 125 and then she was put on fluid restriction and this morning, sodium was up to 133, after which she was given a little bit of dextrose water. There is another BMP pending at this time. Vital signs appear stable. 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 FAMILY HISTORY: Negative for renal disease. No renal disease or dialysis in the family. SOCIAL HISTORY: She is . Former smoker, quit in 1985. No alcohol, no drugs. REVIEW OF SYSTEMS: Other than some mild hip pain in the left side, twelve systems reviewed and negative. MEDICATIONS: At home was reviewed and is as per the H and P and the reconciliation list. ALLERGIES: List was reviewed. PHYSICAL EXAMINATION: GENERAL: Elderly white female who appears thin and frail and she only weighs 42 kilos. She is awake, alert, oriented x3. HEENT: Mucous membranes are moist. NECK: Supple. No jugular venous distention. CHEST: Bilaterally clear to auscultation. CARDIOVASCULAR: S1 and S2, regular. ABDOMEN: Soft, nontender. EXTREMITIES: Show no edema. NEUROLOGIC: Moving all 4 extremities. Normal speech. LABORATORY TEST: Sodium on admission was 125, this morning was 133; creatinine is 0.4; BUN is 12. Urine dipstick was done and shows a very low specific gravity of 1.004. Chest x-ray done yesterday shows no acute abnormality. 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 I have been consulted for hyponatremia. 1. Hyponatremia: This is acute on chronic. Her sodium usually runs in the high 120s and low 130s. On admission, it was slightly lower than usual at 125, but it has since already improved to 133. At this point, no further workup is needed as her diagnosis has already been established. Continue fluid restriction at 1200 mL/day. She does not need any specific medication even though her sodium went up fairly fast to 133. It happened with the serum sodium already in the 120 range, which means there is no real risk of fast correction at this point. There is another BMP pending. As long as is more than 128, we do not need frequent labs and her sodium can be checked again in the morning. She needs to eat more protein as she is losing weight and unless the protein intake is dramatically raised, it is very hard to increase the serum sodium, which has been explained in detail. She wants to have a nutrition consult to help with her weight loss. Fluid restriction 1200 mL per day. Thank you very much for the consult. Job ID: [id number] NARDA
[2023-04-11 00:42] LABS: BUN Creatinine Ratio 26.4 (10-20); Calcium 7.9 mg/dl (8.6-10.3); Creatinine Clr Calc Pharmacy 29.4 ml/min; Est GFR (African American) 56.9 ml/min; Est GFR (Non-African American) 49.1 ml/min
[2023-04-11] MEDS: LEVOTHYROXINE SODIUM 112 MCG TABLET PO SCH (05:30)
[2023-04-11 06:59] LABS: Hemoglobin 9.6 g/dl (12.0-16.0); Mean Corpuscular Hemoglobin 30.5 pg (25.0-34.0); Mean Corpuscular Hgb Conc 34.3 g/dL (32.0-36.0); Mean Corpuscular Volume 88.9 fL (80.0-100.0); Mean Platelet Volume 9.4 fL (9.4-12.4); Platelet Count 198 K/uL (130-400); RDW Coefficient of Variation 12.7 % (11.5-14.5); RDW Standard Deviation 41.3 fL (36.4-46.3); Red Blood Count 3.15 M/uL (4.20-5.40); White Blood Count 2.73 K/ul (4.8-10.8)
[2023-04-11 07:14] LABS: BUN Creatinine Ratio 33.3 (10-20); Calcium 7.9 mg/dl (8.6-10.3); Creatinine Clr Calc Pharmacy 44.4 ml/min; Est GFR (African American) 90.4 ml/min; Magnesium 2.1 mg/dl (1.7-2.4); Potassium 4.3 mmol/L (3.5-5.1)
[2023-04-11] MEDS ORDERED: FUROSEMIDE 40 MG TAB PO SCH (09:00)
[2023-04-11] MEDS: MULTIVITAMIN TAB PO SCH (09:12)
[2023-04-11] MEDS: amLODIPine BESYLATE 5 MG TAB PO SCH (09:13)
[2023-04-11] MEDS: ASPIRIN 81 MG ECTAB PO SCH (09:13)
[2023-04-11] MEDS: POLYETHYLENE (MIRALAX) 17 GM PACK PO SCH (09:14)
[2023-04-11] MEDS: LORATADINE 10 MG TAB PO SCH (09:14)
[2023-04-11] MEDS: lisinopril 2.5 MG TAB PO SCH (09:14)
[2023-04-11] MEDS: ZINC SULFATE 220 MG CAPSULE PO SCH (09:14)
[2023-04-11] MEDS: DOCUSATE SODIUM 100 MG CAP PO SCH (09:14)
[2023-04-11] MEDS: HEPARIN SOD 5,000 UNIT/0.5 ML VIAL SQ SCH (09:14)
[2023-04-11] MEDS: CHOLECALCIFEROL 1,000 UNITS 25 MCG TAB PO SCH (09:15)
[2023-04-11] MEDS: ATORVASTATIN 40 MG TAB PO SCH (09:15)
[2023-04-11] MEDS: ADVANCED PROBIOTIC 1250 MG CAPSULE PO SCH (09:15)
[2023-04-11] MEDS: CLOPIDOGREL BISULFATE 75 MG TAB PO SCH (09:15)
[2023-04-11] MEDS: METOPROLOL SUCC 25MG EXT REL TAB PO SCH (09:15)
[2023-04-11] MEDS: FERROUS SULFATE 325 MG TAB PO SCH (09:15)
[2023-04-11] MEDS: FLUTICASONE PROPIONATE NA SPR 16 GM BTL SCH ×2 (09:15→12:20)
--- NOTE | 2023-04-11 12:59 | Discharge Summary ---
Date of Service April 11, 2023 Admission HPI Per Admitting Provider This is a 77-year-old female with past medical history significant for SIADH, hypothyroidism, hyperlipidemia, history of reactive hypoglycemia, history of allergic rhinitis, chronic diastolic CHF, history of CAD, status post stent to LAD, history of hypertension, legal blindness, history of retinal artery occlusion. The patient says she can ambulate without support at home because she has some peripheral vision in the right eye and all the stuff in house at same place. History of orthostatic hypotension, Raynaud disease, constipation, osteoporosis, SLE, generalized anxiety disorder, cachectic state, chronic ane rebekah,CVA, presents with left hip dislocation. This is the third episode for left hip dislocation. She was just standing and the other leg gave way and had left hip dislocation. The hip was reduced in the ER. She has pain and we are called for admission.Also her sodium is 125. Denies any chest pain. No shortness of breath, no cough, no fevers, no nausea, no abdominal pain. Normal bowel and bladder movements. No headache, no dizziness. Somewhat hard of hearing, legally blind. No runny nose, no sore throat. No cough. Appetite is okay. Hemodynamically stable. Admission Exam Per Admitting Provider GENERAL: The patient is thin and frail, not in acute distress. VITAL SIGNS: Temperature 36.5, pulse 56, respiratory rate 15, blood pressure 138/74, oxygen 100% on room air. HEENT: Pupils, legally blind. Atraumatic. No facial droop. Oral mucosa dry. NECK: No JVD. No neck masses. CARDIOVASCULAR: S1 and S2 heard. Regular rate and rhythm. No murmur, no gallop. RESPIRATORY SYSTEM: Normal AP diameter. No accessory muscle use. No wheezing or crackles. ABDOMEN: Soft, bowel sounds present, nontender, no distention. CENTRAL NERVOUS SYSTEM: Alert and awake. No facial droop. Insight is okay. Moves extremities. EXTREMITIES: Status post dislocation of left hip, which is replaced. No edema or erythema seen. Principal Diagnosis Recurrent hip dislocation Hyponatremia Protein calorie malnutrition Discharge Exam GENERAL: thin and frail F not in acute distress. HEENT: legally blind. head atraumatic. No facial droop. Oral mucosa dry. NECK: No JVD. No neck masses. CARDIOVASCULAR: S1 and S2 heard. Regular rate and rhythm. No murmur, no gallop. RESPIRATORY: Normal AP diameter. No accessory muscle use. No wheezing or crackles. ABDOMEN: Soft, bowel sounds present, nontender, no distention. NEURO: Alert and awake. No facial droop.Speech fluent. Moves extremities. EXTREMITIES: Status post dislocation of left hip, now reduced. No edema or erythema seen. Discharge Data Allergies Allergy/AdvReac Type Severity Reaction Status Date / Time venlafaxine Allergy Mild RASH Verified 02/02/23 17:38 Sulfa (Sulfonamide Allergy Unknown UNKNOWN Verified 02/02/23 17:38 Antibiotics) REACTION TO SULFA DRUGS tomato AdvReac Unknown Verified 02/02/23 17:38 Consultations 04/10/23 08:00 Consult Nephrology Routine Consult Orthopedic Surgery Routine Hospital Course (1) Dislocation of hip, left, closed: (2) Hyponatremia: 1. This is a 77-year-old female, presents with left hip dislocation, which is recurrent, reduced in the ER. There is plan for surgical repair byorthopedics - April 23. Orthopedics consulted - ok to discharge and follow up for scheduled surgery. She can weight-bear as tolerated. Discussed precautions. Pain control. PT/OT. 2. Hyponatremia, history of syndrome of inappropriate antidiuretic hormone secretion. Discussed w/ nephrology - continue Fluid restriction, 1200 mL per day. Recommend diet higher in protein. Foundry Worker General also consulted. Protein calorie malnutrition -Foundry Worker General consulted, discussed in detail, patient will follow-up with nu tritionist as outpatient 3. History of coronary artery disease, status post stent. 4. History of myocardial infarction. On aspirin, Plavix, statin and beta maría. Currently stable. 5. History of hypertension. On metoprolol succinate, lisinopril, amlodipine and Lasix. Monitor the blood pressure. 6. History of chronic diastolic congestive heart failure. On Lasix. Not in exacerbation. 7. Hyperlipidemia. On statin. 8. Chronic constipation. On stool softeners. 9. History of systemic lupus erythematosus. On Plaquenil. Total Time Total Time Spent Total Time Spent (In Minutes): 40 Discharge Plan Discharge Items Patient Disposition: Home - Self-Care Reason For Visit: LEG PAIN Discharge Diagnosis: Recurrent hip dislocation Hyponatremia Protein calorie malnutrition Activity: Per Instructions section Non-emergency contact: Primary Care Provider, Surgeon and Specialist Call non-emergency contact if: you have any medication questions and your symptoms worsen Follow-up/Referrals: Missy Murillo MD [Primary Care Provider] - (Date & Time 04/17/2023 10:00 AM Provider Missy Murillo MD Department General Internal Medicine [facility] ) Diet: Regular Fluids: 1200ml (5 cups) Diet Texture: Easy to Chew Addtl Attending Provider Instructions: Follow-up with primary care physician, orthopedic surgeon, and steam pipe fitter. Follow-up appointment with your primary care provider was scheduled for you for April 17. It is important that you have a diet higher in protein, and follow-up with steam pipe fitter. Make sure to follow fluid restriction, 1.2 L a day. You will need follow-up on your low sodium level. Pending Studies at Discharge: No Stand-Alone Forms: My [facility], Smoking Cessation Medications and DC Order Prescriptions: Continued atorvastatin 40 mg tablet 40 mg PO QAM docusate sodium [Colace] 100 mg Capsule 100 mg PO BID hydroxychloroquine [Plaquenil] 200 mg Tablet 200 mg PO HS cholecalciferol (vitamin D3) [Vitamin D3] 1,000 unit Capsule 2,000 unit PO QAM clobetasol 0.05 % Shampoo 1 applic TOPICAL DIRECTED PRN (Reason: for flare up of lupus) polyethylene glycol 3350 8.5 gram Powder In Packet 17 g PO QAM Probiotic 3 billion cell Capsule 3,000 mmu cells PO QAM metoprolol succinate 25 mg tablet extended release 24 hr 25 mg PO DAILY lisinopril 2.5 mg tablet 2.5 mg PO DAILY aspirin 81 mg Tablet,Delayed Release (Dr/Ec) 81 mg PO DAILY Qty: 1 0RF ferrous sulfate 325 mg (65 mg iron) Tablet 325 mg PO QAM furosemide 20 mg tablet 30 mg PO QAM clobetasol 0.05 % cream 1 applic TOPICAL BID PRN (Reason: .FLARES) Rx Instructions: APPLY TO LUPUS ON THE BODY,TWICE DAILY, NEEDED, FOR FLARES tacrolimus 0.1 % ointment 1 applic TOPICAL BID PRN (Reason: flare up of lupus) Rx Instructions: APPLY TO SPOTS ON FACE clopidogrel 75 mg tablet 75 mg PO DAILY fluticasone propionate 50 mcg/actuation spray,suspension 2 spray INTRANASAL DAILY PRN (Reason: Allergy Symptoms) cyclosporine 0.05 % dropperette 1 drp OPB Q12H PRN (Reason: Dry Eye(S)) zinc acetate 50 mg (zinc) Capsule 50 mg PO QAM loratadine 10 mg Tablet 10 mg PO DAILY PRN (Reason: Allergy Symptoms) nitroglycerin 0.4 mg Tablet, Sublingual 0.4 mg sublingual .DAILY/PRN PRN (Reason: Chest Pain) Rx Instructions: NEEDED FOR CHEST PAIN : ONE TABLET UNDER THE TONGUE EVERY 5 MINUTES UP TO THREE DOSES. Prolia 60 mg/mL Syringe 60 mg SUBCUT Q6M multivitamin Tablet 1 tab PO DAILY levothyroxine [Synthroid] 100 mcg tablet 112 mcg PO DAILY amlodipine 2.5 mg tablet 2.5 mg PO BID Discharge Orders: Discharge Order (Routine); Ordered 04/11/23 Ordered By: Cosme Gamboa Admission Data Admit Date/Time: 04/10/23 00:49 Attending Provider: Cosme Gamboa Admit Provider: Yanick Vieyra Primary Care Provider: Missy Murillo Other Providers: Jessica Coppola ; Kayode Schroeder ; Agapito Figueroa ; Cassy Rudolph Thomas J ; Damari Lebron ; Calvin Fan ; Sukumar Gardner ; Edmundo Morocho Andrew J. ; Sukumar Guzman ; Samir Dill ; Jorge Weiss ; Jose Daniel Fishman ; Missael Orona ; Damari Pereira ; Ollie Amador ; Surinder Hernandez ; Ann Andersen John ; Ley, Alexis N. ; Della Reynolds ; Isaac Rey ; Roselyn Gomez ; Shira Chand ; Paco Aguila
--- NOTE | 2023-04-13 13:23 | Emergency Department Note ---
Pre Sedation Assessment Vital Signs VSS, slightly hypertensive. Cardiovascular RRR, no murmur, no edema Respiratory normal respiratory effort, lungs clear to auscultation Pre-Sedation Airway Assessment Smoking Status: Never smoker Hx Sleep Apnea: No Short, Thick Neck: No Thyromental Distance: > or= 3.5 Finger Breadths Oral Cavity: + Capped Teeth Mallampati Class: II ASA: ASA3 NPO Status Date of Last Intake of Fluids: 04/09/23 Time of Last Intake of Fluids: 17:00 Last Oral Intake of Fluids Comment: water Date of Last Intake of Solid Food: 04/09/23 Time of Last Intake of Solid Foods: 17:00 Last Intake of Solids Comment: hamburger, baked potato, cauliflower Procedure Planning Contraindications for Sedation: none Notes The planned sedation has been discussed with the patient. Informed Consent was obtained. I have identified the patient, determined the appropriateness of sedation and have assessed the patient immediately prior to the procedure. All medicine(s) and interventions are by my order.
--- NOTE | 2023-04-13 13:25 | Emergency Department Note ---
Post Sedation Assessment Recovery Score Activity: Moves 4 extremities Respiration: Deep Breath/Cough Circulation: +/-20% PreAnes Value Consciousness: Fully Awake Oxygen Saturation: > 92% On Room Air Post Anesthesia Score: 10 Discharge Sedation Level of Care: Fast Track Phase II Post Sedation Plan On clinical assessment, the patient appears to have tolerated the sedation without complications. Patient is recovering as anticipated. Patient will continue to be monitored by nursing and may be discharged when sedation discharge criteria are met per below protocol. Upon Completions of procedure up to 15 minutes continue every 5 minute vital signs and the P.A.R. score; then discharge to a Phase I or Fast Track to Phase II per the following guidelines: * Discharge Patient to appropriate Phase II area if PAR is 8 or greater or return to pre- procedure baseline. The post - procedure orders will be as directed. * If PAR score is less than 8 or not return to pre-procedure baseline then patient will follow Phase I monitoring till PAR is reached for Phase II. The Phase I may be done in procedure room or may call to secure a Phase I area. * If naloxone or flumazenil are used for reversal, hold in Phase I for continued monitoring from when last reversal dose was given for a minimum of 60 minutes or longer pending the nurse and/or physician discretion of patient condition before discharge to Phase II. Please call the Sedation Physician to re-evaluate and complete post-note for discharge to Phase II area. Do NOT discharge from procedure sedation or Phase 1 until post- sedation evaluation note is complete by procedure /sedation MD Sedation Discharge Instructions to be given to the patient at discharge to home. Sedation Data Time Out Team Members Agree on the Following: Correct Patient Team Agrees: Yes Sedation Times Sedation Start Date: 04/09/23 Sedation Start Time: 23:24 Sedation End Date: 04/09/23 Sedation End Time: 23:30 Total Sedation Time: 6 Procedure Times Procedure Start Time:: 23:25 Procedure End Time: 23:40
== END 2023-04-11 14:45 | disposition home or self-care (01) | DRG 560 ==
LOC: ED 19:19 → EDINP 04-10 00:49 → SUATTDRO 04-10 00:49 → INTOOBSV 04-10 00:49 → EDINP 04-10 01:30 → 2N 04-10 16:55

== ENCOUNTER 2024-02-20 10:57 | Inpatient (IN) ==
--- NOTE | 2024-02-20 12:30 | XRay Report ---
XR chest 1V not portable CLINICAL HISTORY: weakness COMPARISON STUDY: Chest CT April 30, 2017. Chest radiograph April 09, 2023. FINDINGS: There is no pneumothorax or pleural effusion. No consolidation is identified to suggest pne umonia. No evidence for pulmonary edema. Cardiomediastinal silhouette is stable. Several old left rib fractures are incidentally noted. IMPRESSION: No acute cardiopulmonary findings. ACT 112: Negative or not required by law. Electronically signed by: Christian Zambrano M.D. 02/20/2024 12:29 PM
--- NOTE | 2024-02-20 12:32 | CT Scan Report ---
CT SCAN OF THE BRAIN WITHOUT IV CONTRAST CLINICAL HISTORY: Fall. Generalized weakness. COMPARISON STUDY: CT and MRI of the brain dated 01/13/2024 TECHNIQUE: Unenhanced axial CT scan of the brain is performed from the vertex to the skull base. A do se lowering technique was utilized adhering to the principles of ALARA. FINDINGS: Brain parenchyma: There is age-related involutional change noting moderate to advanced subcortical an d periventricular microangiopathic disease. There is no hemorrhage, mass effect, or evidence of acute territorial ischemia by CT criteria. Small chronic lacunar infarcts are noted in the basal ganglia a nd thalami. Perez-white matter differentiation is preserved. No extra-axial fluid collection is seen. Ventricles, sulci, cisterns: Prominent secondary to involutional change. Intracranial vasculature: There is atherosclerotic calcification of the cavernous carotid and vertebr al arteries. Calvarium: The skeletal structures are osteopenic. No depressed calvarial fracture is seen. Sinuses and mastoids: The visualized paranasal sinuses are clear. There are bilateral mastoid effusio ns. Orbits: The bony orbits are grossly intact. There are bilateral ocular lens implants. IMPRESSION: There is no hemorrhage, mass effect, or evidence of acute territorial ischemia by CT marisela padilla. ACT 112: Negative or not required by law. Electronically signed by: Donis Macdonald M.D. 02/20/2024 12:31 PM
--- NOTE | 2024-02-20 12:36 | CT Scan Report ---
CT cervical spine wo con CT DOSE: 905.77 mGy.cm CLINICAL HISTORY: 78 years-old Female with fall. Acute neck pain status post fall COMPARISON: Head CT of same day TECHNIQUE: Multiple axial CT images of the cervical spine were obtained without contrast. A dose low ering technique was utilized adhering to the principles of ALARA. FINDINGS: Bilateral mastoid and left middle ear effusions. Reversal of the normal cervical lordosis. No acute fracture identified. Grade 1 anterolisthesis C3 on C4 is noted with facet arthrosis, most ad vanced on the left. Severe disc space narrowing at C3-C4, C4-C5 and C5-C6. Moderate multilevel spondy lotic spurring with moderate to severe facet arthrosis. No acute fracture or subluxation. Lung apices are clear. No pneumothorax. Unremarkable soft tissues. IMPRESSION: No acute cervical spine fracture identified. ACT 112: Negative or not required by law. The above report was generated using voice recognition software. It may contain grammatical, syntax o r spelling errors. Electronically signed by: Isaac Gaming M.D. 02/20/2024 12:35 PM
[2024-02-20 12:50] LABS: INR 1.1 (0.9-1.1); Partial Thromboplastin Ratio 0.8; Partial Thromboplastin Time 22 Seconds (21-31); Prothrombin Time 11.6 Seconds (9.0-12.0)
[2024-02-20 12:53] LABS: Alanine Aminotransferase 14 U/L (7-52); Albumin Globulin Ratio 1.2 (0.9-2); Albumin Level 4.2 gm/dl (3.4-5.0); Alkaline Phosphatase 57 U/L (34-104); Anion Gap 9 (3-11); Aspartate Aminotransferase 34 U/L (13-39); BUN Creatinine Ratio 32.6 (10-20); Bilirubin,Total 0.6 mg/dl (0.2-1.0); Blood Urea Nitrogen 28 mg/dl (6-23); Calcium 9.6 mg/dl (8.6-10.3); Carbon Dioxide 32 mmol/L (21-32); Chloride 88 mmol/L (98-107); Est GFR (African American) 76.1 ml/min; Est GFR (Non-African American) 65.6 ml/min; Globulin 3.4 gm/dl (2.5-4.0); Glucose 106 mg/dl (70-99(Fasting)); Potassium 3.7 mmol/L (3.5-5.1); Sodium 129 mmol/L (136-145); Total Protein 7.6 gm/dl (6.0-8.3)
[2024-02-20 13:21] LABS: Hematocrit (blood only) 34.7 % (37.0-47.0); Mean Corpuscular Hemoglobin 28.2 pg (25.0-34.0); Mean Corpuscular Hgb Conc 34.6 g/dL (32.0-36.0); Mean Corpuscular Volume 81.5 fL (80.0-100.0); Mean Platelet Volume 8.8 fL (9.4-12.4); Platelet Count 487 K/uL (130-400); RDW Coefficient of Variation 14.4 % (11.5-14.5); RDW Standard Deviation 42.5 fL (36.4-46.3); Red Blood Count 4.26 M/uL (4.20-5.40); White Blood Count 9.71 K/ul (4.8-10.8)
[2024-02-20 13:22] LABS: Immature Granulocytes # (auto) 0.03 K/uL (0.01-0.20); Immature Granulocytes % (auto) 0.3 %; Lymphocytes # (auto) 0.21 K/uL (1.20-3.40); Lymphocytes % (auto) 2.2 %; Monocytes # (auto) 0.33 K/uL (0.11-0.59); Monocytes % (auto) 3.4 %; Neutrophils # (auto) 9.14 K/uL (1.40-6.50); Neutrophils % (auto) 94.1 %; Ovalocytes 1+; Polychromasia 1+
[2024-02-20 14:18] LABS: Magnesium 2.6 mg/dl (1.7-2.4)
--- NOTE | 2024-02-20 15:01 | Emergency Department Note ---
Impression & Plan Generalized weakness, Adult failure to thrive ED Provider Note HISTORY OF PRESENT ILLNESS: Patient is a 78-year-old female presenting with generalized weakness and poor oral intake. Patient reports that for the last week she has been progressively worsening weakness. Reports that she has been unable to tolerate any solid or liquid food secondary to it feeling like it getting stuck in the middle of her throat. She reports she tries to eat or drink something, it gets stuck and then she has to cough it out. Reports subjective weight loss. Reports that she fell a few days ago and struck her head. Denies loss of consciousness. She had been seen previously for left-sided hearing loss and balance issues. She had an MRI of the internal auditory canal with and without contrast performed which was negative. She has a referral for ENT to have a "temporal biopsy" done. She denies any chest pain or shortness of breath. No reported fevers. Denies any vomiting but reports feeling nauseous "every time I try to eat something." ROS: as above PHYSICAL EXAM: Constitutional: Patient appears in no acute distress. HENT: Head: Normocephalic and atraumatic. Eyes: EOMI, PERRL Mouth/Throat: Mucous membranes moist. Neck: Trachea midline. Neck supple. Cardiovascular: RRR, No murmurs, rubs or gallops. Intact distal pulses. Pulmonary/Chest: No respiratory distress. Breath sounds clear and equal bilaterally. No wheezes or rales. Abdominal: Abdomen soft, no tenderness, rebound or guarding. Musculoskeletal: No edema, tenderness or deformity noted. Skin: Warm and dry. No rash, erythema, pallor or cyanosis Psychiatric: Appropriate mood and affect for situation. Neurological: Alert and keenly responsive. CN II-XII grossly intact, moving all extremities equally and fully. MDM: - Vitals signs stable - History obtained via patient and patient's family. History as above. - Chronic conditions affecting care: HTN; CVA; hypothyroidism; GERD; SIADH; diastolic HF; CAD (s/p PCI) - Differential diagnoses include, but are not limited to: electrolyte abnormality; dehydration; ACS; CVA; intracranial hemorrhage - Order placed for continuous cardiac monitoring. At this time, monitor showed rate of 67 bpm with normal sinus rhythm, per my interpretation. - External medical records reviewed. MRI internal auditory canal w/wo contrast through [facility] was reviewed. It was obtained on 02/08/2024 and was negative for acute pathology. She was noted to have bilateral mastoid middle ear effusion. Telephone conversation from 02/19/2024 was reviewed. Patient is having follow-up for possible giant cell arteritis. She was referred to the emergency department by her family doctor for failure to thrive and potential rehab placement. - EKG interpreted by myself showed normal sinus rhythm. Rate 69 BPM. QT 528. No acute ischemic changes. - Laboratory workup interpreted by myself showed normal WBC; chronic hyponatremia (Na 129); hypermagnesemia (Mg 2.6) - CXR negative for pneumonia, per my interpretation - UA ordered. - CT cervical spine wo contrast negative. - CT head wo contrast negative for acute pathology. - Discussed results with patient and family at bedside. They expressed significant concern about patient's ability to care for herself at home and her failure to thrive. Patient is agreeable to potential rehab placement after evaluation by PT/OT. - Discussion was had with keycase assembler about patient's case and need for admission - Hospitalist consulted for admission - [facility] ASSESSMENT AND PLAN: Diagnosis: generalized weakness; adult failure to thrive Plan: admit Past Med/Surg History Medical History CAD (coronary artery disease) Chronic back pain Coronary artery disease s/p 5 stents in 2017 Degenerative disc disease Diastolic heart failure EF 58%, follows with [facility] cardio GERD (gastroesophageal reflux disease) diet controlled History of blood transfusion "with every surgery" Hypertension controlled, stable per pt Hypoglycemia with associated syncope, last syncopal episode colonoscopy fasting 8 yrs ago Hypothyroidism Myocardial Infarction (~2017) follows with Dr Jean Baptiste On anticoagulant therapy Raynaud's disease SIADH (syndrome of inappropriate ADH production) 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 no longer sees a neurologist. Systemic lupus follows with [facility] Rheumatology Surgical History History of cardiac cath (~2016) at [facility] -5 stents-2017 History of cataract surgery bilateral History of colonoscopy History of esophagogastroduodenoscopy (EGD) History of heart artery stent (~2017) x5 stents (at [facility]) History of open reduction and internal fixation (ORIF) procedure right wrist History of tonsillectomy History of total hip arthroplasty left Hx of vaginal hysterectomy S/P lumbar fusion x2 Family History Other No family history of adverse response to anesthesia Social History Smoking Status: Former smoker Tobacco Type: Cigarettes Cigarettes Per Day: 6-8; Second Hand Exposure: No; Do You Dip or Chew Tobacco: No; Hx Alcohol Use: No Hx Substance Use: No Preferred Language: [place]i Communication Ability: Effective Communication Ability Comment: legally blind Visual Impairment: No Limitations Hearing Ability: Normal 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 Beliefs That Will Affect Care: None marital status: Current Living Situation: Spouse Current Living Situation Comment: Lives at home with current occupational status: retired Feels Safe at Home: Yes Assistive Devices: Glasses, Hearing Aid - Bilateral and Walker Allergies Allergies Allergy/AdvReac Type Severity Reaction Status Date / Time venlafaxine Allergy Mild RASH Verified 02/02/23 17:38 Sulfa (Sulfonamide Allergy Unknown UNKNOWN Verified 02/02/23 17:38 Antibiotics) REACTION TO SULFA DRUGS tomato AdvReac Unknown Verified 02/02/23 17:38 Home Meds Home Medications Medication Instructions Recorded Confirmed atorvastatin 40 mg tablet 40 mg PO QAM 03/04/19 04/10/23 cholecalciferol (vitamin D3) 25 2,000 unit PO QAM 03/04/19 04/10/23 mcg (1,000 unit) capsule (Vitamin D3) clobetasol 0.05 % shampoo 1 applic topical DIRECTED PRN 03/04/19 04/10/23 for flare up of lupus docusate sodium 100 mg capsule 100 mg PO BID 03/04/19 04/10/23 (Colace) hydroxychloroquine 200 mg tablet 200 mg PO HS 03/04/19 04/10/23 (Plaquenil) lactobacillus combination no.4 3 3,000 mmu cells PO QAM 03/04/19 04/10/23 billion cell capsule (Probiotic) polyethylene glycol 3350 8.5 gram 17 g PO QAM 03/04/19 04/10/23 oral powder packet lisinopril 2.5 mg tablet 2.5 mg PO DAILY 08/14/22 04/10/23 metoprolol succinate 25 mg 25 mg PO DAILY 08/14/22 04/10/23 tablet,extended release 24 hr clobetasol 0.05 % topical cream 1 applic topical BID PRN .FLARES 12/31/22 04/10/23 clopidogrel 75 mg tablet 75 mg PO DAILY 12/31/22 04/10/23 cyclosporine 0.05 % eye drops in a 1 drp OPB Q12H PRN Dry Eye(S) 12/31/22 04/10/23 dropperette denosumab 60 mg/mL subcutaneous 60 mg subcut Q6M 12/31/22 04/10/23 syringe (Prolia) ferrous sulfate 325 mg (65 mg 325 mg PO QAM 12/31/22 04/10/23 iron) tablet fluticasone propionate 50 2 spray intranasal DAILY PRN 12/31/22 04/10/23 mcg/actuation nasal Allergy Symptoms spray,suspension furosemide 20 mg tablet 30 mg PO QAM 12/31/22 04/10/23 loratadine 10 mg tablet 10 mg PO DAILY PRN Allergy Symptoms 12/31/22 04/10/23 multivitamin 1 tab PO DAILY 12/31/22 04/10/23 nitroglycerin 0.4 mg sublingual 0.4 mg sublingual .DAILY/PRN PRN 12/31/22 04/10/23 tablet Chest Pain tacrolimus 0.1 % topical ointment 1 applic topical BID PRN flare up 12/31/22 04/10/23 of lupus zinc acetate 50 mg (zinc) capsule 50 mg PO QAM 12/31/22 04/10/23 levothyroxine 100 mcg tablet 112 mcg PO DAILY 02/02/23 04/10/23 (Synthroid) amlodipine 2.5 mg tablet 2.5 mg PO BID 04/10/23 04/10/23 Previous Rx's Medication Instructions Recorded aspirin 81 mg tablet,delayed 81 mg PO DAILY #1 tab 08/15/22 release meclizine 25 mg tablet 25 mg PO TID PRN dizziness #14 tabs 01/13/24 Results & Data (ED) Vital Signs Vital Signs - 24 hr 02/20/24 11:31 02/20/24 14:51 Temperature 36.6 C Temperature Source Oral Pulse Rate 76 64 Respiratory Rate 14 Blood Pressure 124/79 Blood Pressure Mean 94 Pulse Oximetry 98 Oxygen Delivery Method Room Air Sepsis New/Unexplained Change in Mental Status No Sepsis Action Taken by Nursing No Action Required Laboratory Data 02/20/24 11:55 02/20/24 11:55 Lab Results 02/20/24 Range/Units 11:55 WBC 9.71 (4.8-10.8) K/ul RBC 4.26 (4.20-5.40) M/uL Hgb 12.0 (12.0-16.0) g/dl Hct 34.7 L (37.0-47.0) % MCV 81.5 (80.0-100.0) fL MCH 28.2 (25.0-34.0) pg MCHC 34.6 (32.0-36.0) g/dL RDW Std Deviation 42.5 (36.4-46.3) fL RDW Coeff of [place] 14.4 (11.5-14.5) % Plt Count 487 H (130-400) K/uL MPV 8.8 L (9.4-12.4) fL Immature Gran % (Auto) 0.3 % Neut % (Auto) 94.1 % Lymph % (Auto) 2.2 % [place] % (Auto) 3.4 % Eos % (Auto) 0.0 % Baso % (Auto) 0.0 % Neut # (Auto) 9.14 H (1.40-6.50) K/uL Lymph # (Auto) 0.21 L (1.20-3.40) K/uL Har[place]on # (Auto) 0.33 (0.11-0.59) K/uL Eos # (Auto) 0.00 (0.00-0.50) K/uL Baso # (Auto) 0.00 (0.00-0.20) K/uL Immature Gran # (Auto) 0.03 (0.01-0.20) K/uL Polychromasia 1+ Ovalocytes 1+ PT 11.6 (9.0-12.0) Seconds INR 1.1 (0.9-1.1) APTT 22 (21-31) Seconds PTT Ratio 0.8 Sodium 129 L (136-145) mmol/L Potassium 3.7 (3.5-5.1) mmol/L Chloride 88 L (98-107) mmol/L Carbon Dioxide 32 (21-32) mmol/L Anion Gap 9 (3-11) BUN 28 H (6-23) mg/dl Creatinine 0.86 (0.6-1.2) mg/dl Est Cr Clr Drug Dosing Not Reportable Est GFR ( Amer) 76.1 ml/min Est GFR (Non-Af Amer) 65.6 ml/min BUN/Creatinine Ratio 32.6 H (10-20) Glucose 106 H (70-99(Fasting)) mg/dl Calcium 9.6 (8.6-10.3) mg/dl Magnesium 2.6 H (1.7-2.4) mg/dl Total Bilirubin 0.6 (0.2-1.0) mg/dl AST 34 (13-39) U/L ALT 14 (7-52) U/L Alkaline Phosphatase 57 (34-104) U/L Total Protein 7.6 (6.0-8.3) gm/dl Albumin 4.2 (3.4-5.0) gm/dl Globulin 3.4 (2.5-4.0) gm/dl Albumin/Globulin Ratio 1.2 (0.9-2) Imaging Data Radiologist's Impression: Cervical Spine CT 02/20/24 11:41 CT cervical spine wo con CT DOSE: 905.77 mGy.cm CLINICAL HISTORY: 78 years-old Female with fall. Acute neck pain status post fall COMPARISON: Head CT of same day TECHNIQUE: Multiple axial CT images of the cervical spine were obtained without contrast. A dose lowering technique was utilized adhering to the principles of ALARA. FINDINGS: Bilateral mastoid and left middle ear effusions. Reversal of the normal cervical lordosis. No acute fracture identified. Grade 1 anterolisthesis C3 on C4 is noted with facet arthrosis, most advanced on the left. Severe disc space narrowing at C3-C4, C4-C5 and C5-C6. Moderate multilevel spondylotic spurring with moderate to severe facet arthrosis. No acute fracture or subluxation. Lung apices are clear. No pneumothorax. Unremarkable soft tissues. IMPRESSION: No acute cervical spine fracture identified. ACT 112: Negative or not required by law. The above report was generated using voice recognition software. It may contain grammatical, syntax or spelling errors. Electronically signed by: Isaac Gaming M.D. 02/20/2024 12:35 PM Chest X-Ray 02/20/24 11:41 XR chest 1V not portable CLINICAL HISTORY: weakness COMPARISON STUDY: Chest CT April 30, 2017. Chest radiograph April 09, 2023. FINDINGS: There is no pneumothorax or pleural effusion. No consolidation is identified to suggest pneumonia. No evidence for pulmonary edema. Cardiomediastinal silhouette is stable. Several old left rib fractures are incidentally noted. IMPRESSION: No acute cardiopulmonary findings. ACT 112: Negative or not required by law. Electronically signed by: Christian Zambrano M.D. 02/20/2024 12:[address] 02/20/24 11:41 CT SCAN OF THE BRAIN WITHOUT IV CONTRAST CLINICAL HISTORY: Fall. Generalized weakness. COMPARISON STUDY: CT and MRI of the brain dated 01/13/2024 TECHNIQUE: Unenhanced axial CT scan of the brain is performed from the vertex to the skull base. A dose lowering technique was utilized adhering to the principles of ALARA. FINDINGS: Brain parenchyma: There is age-related involutional change noting moderate to advanced subcortical and periventricular microangiopathic disease. There is no hemorrhage, mass effect, or evidence of acute territorial ischemia by CT criteria. Small chronic lacunar infarcts are noted in the basal ganglia and thalami. Perez-white matter differentiation is preserved. No extra-axial fluid collection is seen. Ventricles, sulci, cisterns: Prominent secondary to involutional change. Intracranial vasculature: There is atherosclerotic calcification of the cavernous carotid and vertebral arteries. Calvarium: The skeletal structures are osteopenic. No depressed calvarial fracture is seen. Sinuses and mastoids: The visualized paranasal sinuses are clear. There are bilateral mastoid effusions. Orbits: The bony orbits are grossly intact. There are bilateral ocular lens implants. IMPRESSION: There is no hemorrhage, mass effect, or evidence of acute territorial ischemia by CT criteria. ACT 112: Negative or not required by law. Electronically signed by: Donis Macdonald M.D. 02/20/2024 12:31 PM Discharge Plan Visit Data Chief Complaint: Illness Stated Complaint: NOT EATING, CHOKING ON FOOD, FALLS, HEADACHES, DEH ED Provider: Savanah Key Discharge Problem: Generalized weakness, Adult failure to thrive Forms Stand Alone Forms: My [facility] Prescriptions Prescriptions: No Action atorvastatin 40 mg tablet 40 mg PO QAM docusate sodium [Colace] 100 mg Capsule 100 mg PO BID hydroxychloroquine [Plaquenil] 200 mg Tablet 200 mg PO HS cholecalciferol (vitamin D3) [Vitamin D3] 1,000 unit Capsule 2,000 unit PO QAM clobetasol 0.05 % Shampoo 1 applic TOPICAL DIRECTED PRN (Reason: for flare up of lupus) polyethylene glycol 3350 8.5 gram Powder In Packet 17 g PO QAM Probiotic 3 billion cell Capsule 3,000 mmu cells PO QAM metoprolol succinate 25 mg tablet extended release 24 hr 25 mg PO DAILY lisinopril 2.5 mg tablet 2.5 mg PO DAILY aspirin 81 mg Tablet,Delayed Release (Dr/Ec) 81 mg PO DAILY Qty: 1 0RF ferrous sulfate 325 mg (65 mg iron) Tablet 325 mg PO QAM furosemide 20 mg tablet 30 mg PO QAM clobetasol 0.05 % cream 1 applic TOPICAL BID PRN (Reason: .FLARES) Rx Instructions: APPLY TO LUPUS ON THE BODY,TWICE DAILY, NEEDED, FOR FLARES tacrolimus 0.1 % ointment 1 applic TOPICAL BID PRN (Reason: flare up of lupus) Rx Instructions: APPLY TO SPOTS ON FACE clopidogrel 75 mg tablet 75 mg PO DAILY fluticasone propionate 50 mcg/actuation spray,suspension 2 spray INTRANASAL DAILY PRN (Reason: Allergy Symptoms) cyclosporine 0.05 % dropperette 1 drp OPB Q12H PRN (Reason: Dry Eye(S)) zinc acetate 50 mg (zinc) Capsule 50 mg PO QAM loratadine 10 mg Tablet 10 mg PO DAILY PRN (Reason: Allergy Symptoms) nitroglycerin 0.4 mg Tablet, Sublingual 0.4 mg sublingual .DAILY/PRN PRN (Reason: Chest Pain) Rx Instructions: NEEDED FOR CHEST PAIN : ONE TABLET UNDER THE TONGUE EVERY 5 MINUTES UP TO THREE DOSES. Prolia 60 mg/mL Syringe 60 mg SUBCUT Q6M multivitamin Tablet 1 tab PO DAILY levothyroxine [Synthroid] 100 mcg tablet 112 mcg PO DAILY amlodipine 2.5 mg tablet 2.5 mg PO BID meclizine 25 mg tablet 25 mg PO TID PRN (Reason: dizziness) Qty: 14 0RF Referrals Referrals: Mainali,Missy, MD [Primary Care Provider] -
--- NOTE | 2024-02-20 15:43 | History & Physical Report ---
Date of Service February 20, 2024 Assessment & Plan (1) Adult failure to thrive: (2) Generalized weakness: (3) Fall: Plan: - Admit to med surg - PT/OT consults-case management to assist with inpatient rehab stay after hospitalization -Nutrition consult, will order boost once daily at least, patient with restrictive food patterns as well, chronic, will ask psychiatry to see the patient - hyponatremia seems to be chronic and SIADH - no new cause of imbalance - [facility] [place], continue after dc - CT head neg today, recently had MRI as outpatient last week which was negative for acute findings, swallowing/dysphagia episodes began on Saturday after this MRI. If any focal changes can consider repeat MRI brain. 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 (5) GERD (gastroesophageal reflux disease): (6) SIADH (syndrome of inappropriate ADH production): Plan: - Chronic, na 129 on admission, appears she is between 128-132 within the past 5 months in [facility] emr (7) (HFpEF) heart failure with preserved ejection fraction: (8) Hypertension: (9) CAD (coronary artery disease): Plan: -Appears patient was told to hold lisinopril due to hypotension during her most recent PCP visit last week, per report of the family it sounds like they were holding metoprolol instead of lisinopril, there is some confusion between which medication she was and was not taking for blood pressure -BP of 187/131, will dose with metoprolol tartrate 12.5 mg and lisinopril 2.5 mg now, cont amlodipine starting tomorrow morning - Does not appear volume overloaded, if anything she appears a bit dry on exam, hold am lasix for now, can resume pre day team -Continue plavix and aspirin (10) Hypothyroidism: Plan: - Continue levothyroxine chronic, stable (11) Giant cell arteritis: Plan: -Being worked up by Dr. Dawn as outpatient, was scheduled tomorrow for surgical biopsy however will miss this and will need rescheduled for follow-up -She is on prednisone 40 mg daily currently, scheduled to reduce down to 20 mg on 02/26 to continue taper as per outpatient recs -PCP had prescribed tramadol 50 mg BID for temporal pain, will continue now as she currently rates her pain moderate to severe (12) Raynaud's disease: Plan: - Chronic, stable DVT ppx: teds, scds Lines: 1 PIV FEN/GI: Allow diet for now CODE: Full code Dispo: From home, likely to remain in the hospital x 1-2 days A total of 77 minutes were spent with greater than 50% of that time face to face with the patient, personally reviewing all current laboratories, imaging studies, past medication reconciliation, outpatient chart review, and discussion with specialists to collaborate care for the patient with attending. Please see attending documentation for corrections and/or additions. History of Present Illness Chief Complaint: Failure to thrive, weight loss, dysphagia Primary Care Provider: Missy Murillo MD This is a 78-year-old female with PMHx of SIADH, hypothyroidism, hyperlipidemia, history of reactive hypoglycemia, history of allergic rhinitis, chronic diastolic CHF, history of CAD, status post stent to LAD, history of hypertension, legal blindness, history of retinal artery occlusion, orthostatic hypotension, Raynaud disease, constipation, osteoporosis, SLE, generalized anxiety disorder, cachectic state, chronic anemia, CVA, hx of recurrent left hip dislocation( x 3 s/p surgery) Pt presents to the hospital with acute complaints of inability to tolerate solid foods, coughing with swallowing and feeling like food is getting stuck in esophagus since this past Saturday, 4 days. Sometimes reports it happens with hot or cold foods. She has had a restrictive food issue with for many years, where she would count her food items such as peices of food, weigh food, calorie restrict, but denies extreme exercise and states she does not exercise at all currently due to weakness. She is agreeable to seeing a psychiatrist times hospitalization. Pt is agreeable to starting medication for appetite stimulation as well. Pt has ensure at home, but only drinks a small amount of it daily per family. Family is concerned that she is having difficulty caring for herself as well as elderly at home. She has been recently worked up for gait instability, middle ear effusion and was seen here in the ER about 1 month ago for such, was deemed to have giant cell arteritis as outpatient, following with ENT in the near future. Patient was scheduled to have outpatient surgical consultation for possible biopsy tomorrow, as well as ENT follow-up. Unfortunately she will miss these appointments due to being hospitalized, discussed with family at bedside to ensure that she gets rescheduled. She complains that she has significant pain in the left side of head going across her forehead at times, has been taking prednisone 40 mg daily, however about 5 days left of this 2-week timeframe and then is supposed to taper down to 20 mg daily for another 2 weeks. She is also using tramadol for pain relief twice daily. " Patient admits to significant weakness throughout, states that she just does not feel well-balanced, has difficulty doing simple ADLs at times, and fell twice within the past few days once each evening. She states she had been reaching for her walker during each of these events and missed it and fell to the ground. Denies any hitting of her head or loss of consciousness. She lives at home with her , Jose Alberto who is present at bedside. Her 2 daughters names Maria M and staff are also present at bedside and supports the history. They are hopeful that she can have inpatient rehab stay after this hospitalization due to her significant imbalance/gait issues and falls. Allergies Allergy/AdvReac Type Severity Reaction Status Date / Time venlafaxine Allergy Mild RASH Verified 02/02/23 17:38 Sulfa (Sulfonamide Allergy Unknown UNKNOWN Verified 02/02/23 17:38 Antibiotics) REACTION TO SULFA DRUGS tomato AdvReac Unknown Verified 02/02/23 17:38 Home Medications Medication Instructions Recorded Confirmed Type cholecalciferol (vitamin D3) 25 2,000 unit PO QAM 03/04/19 02/20/24 History mcg (1,000 unit) capsule (Vitamin D3) clobetasol 0.05 % shampoo 1 applic topical DIRECTED PRN 03/04/19 02/20/24 History for flare up of lupus docusate sodium 100 mg capsule 200 mg PO QAM 03/04/19 02/20/24 History (Colace) hydroxychloroquine 200 mg tablet 200 mg PO HS 03/04/19 02/20/24 History (Plaquenil) lactobacillus combination no.4 3 3,000 mmu cells PO QAM 03/04/19 02/20/24 History billion cell capsule (Probiotic) lisinopril 2.5 mg tablet 2.5 mg PO HS 08/14/22 02/20/24 History metoprolol succinate 25 mg 25 mg PO QAM 08/14/22 02/20/24 History tablet,extended release 24 hr clobetasol 0.05 % topical cream 1 applic topical BID PRN .FLARES 12/31/22 02/20/24 History clopidogrel 75 mg tablet 75 mg PO DAILY 12/31/22 02/20/24 History cyclosporine 0.05 % eye drops in a 1 drp OPB Q12H PRN Dry Eye(S) 12/31/22 02/20/24 History dropperette denosumab 60 mg/mL subcutaneous 60 mg subcut Q6M 12/31/22 02/20/24 History syringe (Prolia) fluticasone propionate 50 2 spray intranasal DAILY Allergy 12/31/22 02/20/24 History mcg/actuation nasal Symptoms spray,suspension furosemide 20 mg tablet 20 mg PO QAM 12/31/22 02/20/24 History multivitamin 1 tab PO DAILY 12/31/22 02/20/24 History nitroglycerin 0.4 mg sublingual 0.4 mg sublingual .DAILY/PRN PRN 12/31/22 02/20/24 History tablet Chest Pain tacrolimus 0.1 % topical ointment 1 applic topical BID PRN flare up 12/31/22 02/20/24 History of lupus zinc acetate 50 mg (zinc) capsule 50 mg PO QAM 12/31/22 02/20/24 History levothyroxine 100 mcg tablet 112 mcg PO DAILYBB 02/02/23 02/20/24 History (Synthroid) meclizine 25 mg tablet 25 mg PO TID PRN dizziness #14 tabs 01/13/24 02/20/24 Rx aspirin 81 mg tablet,delayed 81 mg PO QAM 02/20/24 02/20/24 History release atorvastatin 80 mg tablet 80 mg PO QAM 02/20/24 02/20/24 History azelastine 137 mcg (0.1 %) nasal 1 spray intranasal AMHS 02/20/24 02/20/24 History spray aerosol cetirizine 10 mg tablet 10 mg PO DAILY PRN rhinitis 02/20/24 02/20/24 History omeprazole 20 mg capsule,delayed 20 mg PO DAILYBB 02/20/24 02/20/24 History release polyethylene glycol 3350 17 34 g PO DAILY 02/20/24 02/20/24 History gram/dose oral powder (Miralax) prednisone 10 mg tablet See Rx Instructions .Route .COMPLEX 02/20/24 02/20/24 History prednisone 20 mg tablet 40 mg PO QAM 02/20/24 02/20/24 History sennosides 8.6 mg tablet (senna) 8.6 mg PO BID PRN Constipation 02/20/24 02/20/24 History tramadol 50 mg tablet 50 mg PO AMHS 02/20/24 02/20/24 History Past Med/Surg History Medical History CAD (coronary artery disease) Chronic back pain Coronary artery disease s/p 5 stents in 2017 Degenerative disc disease Diastolic heart failure EF 58%, follows with [facility] cardio GERD (gastroesophageal reflux disease) diet controlled History of blood transfusion "with every surgery" Hypertension controlled, stable per pt Hypoglycemia with associated syncope, last syncopal episode colonoscopy fasting 8 yrs ago Hypothyroidism Myocardial Infarction (~2016) follows with Dr Jean Baptiste On anticoagulant therapy Raynaud's disease SIADH (syndrome of inappropriate ADH production) 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 no longer sees a neurologist. Systemic lupus follows with [facility] Rheumatology Surgical History History of cardiac cath (~2017) at [facility] -5 stents-2017 History of cataract surgery bilateral History of colonoscopy History of esophagogastroduodenoscopy (EGD) History of heart artery stent (~2017) x5 stents (at [facility]) History of open reduction and internal fixation (ORIF) procedure right wrist History of tonsillectomy History of total hip arthroplasty left Hx of vaginal hysterectomy S/P lumbar fusion x2 Family History Other No family history of adverse response to anesthesia Social History Smoking Status: Former smoker Tobacco Type: Cigarettes Cigarettes Per Day: 6-8; Second Hand Exposure: No; Do You Dip or Chew Tobacco: No; Hx Alcohol Use: No Hx Substance Use: No Preferred Language: Slovak Communication Ability: Effective Communication Ability Comment: legally blind Visual Impairment: No Limitations Hearing Ability: Normal Nursing Aide Required: No Beliefs That Will Affect Care: None marital status: Current Living Situation: Spouse Current Living Situation Comment: Lives at home with current occupational status: retired Feels Safe at Home: Yes Assistive Devices: Glasses, Hearing Aid - Bilateral and Walker Review of Systems Review of Systems: Constitutional: No fever, sweats or chills Eyes: No diplopia, no worsening or blurred vision ENT: normal hearing, + trouble swallowing, + issues with headache, temporal pain as per HPI. Respiratory: + nonproductive cough, sputum, dyspnea at rest or on exertion Cardiovascular: No chest pain, tightness or palpitations Abdomen: No pain, nausea, vomiting, diarrhea or constipation Musculoskeletal: No joint pain, calf pain, swelling Neurologic: + generalized weakness, no numbness/tingling, + balance problems, uses walker at baseline Psychiatric: +depression, food restricting behavior Skin: No rash or itch Physical Exam Physical Exam: General: awake, alert, no apparent distress, cachectic white female Head: Normocephalic, atraumatic ENT: PERRL, EOMI, no pharyngeal exudate, mucous membranes moist Chest: Clear to auscultation, on room air, O2 sats 96%, no adventitious breath sounds Cardiac: Regular rate and rhythm, no murmur, no JVD, normal peripheral pulses, good capillary refill Abdominal: NABS x 4 quadrants, soft, nondistended, nontender to palpation, no rebound or guarding Extremities: + Diffuse muscle tone atrophy, muscular wasting, temporal wasting, + multiple areas of ecchymosis on her shins as well as her forearms from falls, no peripheral edema or erythema, calfs nontender to palpation Psych: Normal mood and affect Neuro: AAO x 3, strength intact bilaterally and rated 4/5, no motor deficits, speech is clear, no peripheral sensory deficits Results & Data Results & Data Vital Signs (Past 12 Hours) Vital Signs Temp Pulse Resp BP Pulse Ox O2 Del Method 02/20/24 14:51 64 02/20/24 11:31 36.6 C 76 14 124/79 98 Room Air Laboratory Results 02/20/24 11:55 WBC 9.71 RBC 4.26 Hgb 12.0 Hct 34.7 L MCV 81.5 MCH 28.2 MCHC 34.6 RDW Std Deviation 42.5 RDW Coeff of [place] 14.4 Plt Count 487 H MPV 8.8 L Immature Gran % (Auto) 0.3 Neut % (Auto) 94.1 Lymph % (Auto) 2.2 [place] % (Auto) 3.4 Eos % (Auto) 0.0 Baso % (Auto) 0.0 Neut # (Auto) 9.14 H Lymph # (Auto) 0.21 L [place] # (Auto) 0.33 Eos # (Auto) 0.00 Baso # (Auto) 0.00 Immature Gran # (Auto) 0.03 Polychromasia 1+ Ovalocytes 1+ PT 11.6 INR 1.1 APTT 22 PTT Ratio 0.8 Sodium 129 L Potassium 3.7 Chloride 88 L Carbon Dioxide 32 Anion Gap 9 BUN 28 H Creatinine 0.86 Est Cr Clr Drug Dosing Not Reportable Est GFR ( Amer) 76.1 Est GFR (Non-Af Amer) 65.6 BUN/Creatinine Ratio 32.6 H Glucose 106 H Calcium 9.6 Magnesium 2.6 H Total Bilirubin 0.6 AST 34 ALT 14 Alkaline Phosphatase 57 Total Protein 7.6 Albumin 4.2 Globulin 3.4 Albumin/Globulin Ratio 1.2 Diagnostic Findings Cervical Spine CT 02/20/24 11:41 CT cervical spine wo con CT DOSE: 905.77 mGy.cm CLINICAL HISTORY: 78 years-old Female with fall. Acute neck pain status post fall COMPARISON: Head CT of same day TECHNIQUE: Multiple axial CT images of the cervical spine were obtained without contrast. A dose lowering technique was utilized adhering to the principles of ALARA. FINDINGS: Bilateral mastoid and left middle ear effusions. Reversal of the normal cervical lordosis. No acute fracture identified. Grade 1 anterolisthesis C3 on C4 is noted with facet arthrosis, most advanced on the left. Severe disc space narrowing at C3-C4, C4-C5 and C5-C6. Moderate multilevel spondylotic spurring with moderate to severe facet arthrosis. No acute fracture or subluxation. Lung apices are clear. No pneumothorax. Unremarkable soft tissues. IMPRESSION: No acute cervical spine fracture identified. ACT 112: Negative or not required by law. The above report was generated using voice recognition software. It may contain grammatical, syntax or spelling errors. Electronically signed by: Isaac Gaming M.D. 02/20/2024 12:35 PM Chest X-Ray 02/20/24 11:41 XR chest 1V not portable CLINICAL HISTORY: weakness COMPARISON STUDY: Chest CT April 30, 2017. Chest radiograph April 09, 2023. FINDINGS: There is no pneumothorax or pleural effusion. No consolidation is identified to suggest pneumonia. No evidence for pulmonary edema. Cardiomediastinal silhouette is stable. Several old left rib fractures are incidentally noted. IMPRESSION: No acute cardiopulmonary findings. ACT 112: Negative or not required by law. Electronically signed by: Christian Zambrano M.D. 02/20/2024 12:[address] 02/20/24 11:41 CT SCAN OF THE BRAIN WITHOUT IV CONTRAST CLINICAL HISTORY: Fall. Generalized weakness. COMPARISON STUDY: CT and MRI of the brain dated 01/13/2024 TECHNIQUE: Unenhanced axial CT scan of the brain is performed from the vertex to the skull base. A dose lowering technique was utilized adhering to the principles of ALARA. FINDINGS: Brain parenchyma: There is age-related involutional change noting moderate to advanced subcortical and periventricular microangiopathic disease. There is no hemorrhage, mass effect, or evidence of acute territorial ischemia by CT criteria. Small chronic lacunar infarcts are noted in the basal ganglia and thalami. Perez-white matter differentiation is preserved. No extra-axial fluid collection is seen. Ventricles, sulci, cisterns: Prominent secondary to involutional change. Intracranial vasculature: There is atherosclerotic calcification of the cavernous carotid and vertebral arteries. Calvarium: The skeletal structures are osteopenic. No depressed calvarial fracture is seen. Sinuses and mastoids: The visualized paranasal sinuses are clear. There are bilateral mastoid effusions. Orbits: The bony orbits are grossly intact. There are bilateral ocular lens implants. IMPRESSION: There is no hemorrhage, mass effect, or evidence of acute territorial ischemia by CT criteria. ACT 112: Negative or not required by law. Electronically signed by: Donis Macdonald M.D. 02/20/2024 12:31 PM Code Status & VTE Plan Code Status Full code-discussed with the patient at bedside Supervising Physician Co-Signing Physician Notes Patient was seen and examined independently at bedside. Chart reviewed. Case discussed with Paola EISENBERG and agree with the documentation above. In summary, this is a 78 year old female who was brought to the ED for dysphagia for solid food along with failure to thrive. Denies any odynophagia. No issues with liquid or minced/moist diet. Does have heart burn symptoms and takes tums regularly for over a year now. Recently started on prednisone for suspected GCA alonog with omeprazole. Denies any fever, chills, CP, SOB. Concern for prior eating disorder per family. Will consult GI for possible EGD- will keep npo past midnight until GI eval in am. will consult psych. Also noted elevated BP- will also have HLZ prn. Rest as per the note above. On exam- General: Frail elderly female, sitting comfortably in bed, cachectic HEENT: MANJIT, MMM Chest: Clear breath sounds bilaterally, no wheezes or crackles CVS: Regular rate and rhythm, normal heart sounds, no murmur Abdomen: Soft, non tender, not distended, normal bowel sounds Neuro: Awake, alert, oriented, conversing well, non focal Extremities: No edema
[2024-02-20 16:12] LABS: Influenza A virus by PCR Negative (Neg); Influenza B virus by PCR Negative (Neg); RSV by PCR Negative (Neg); SARS CoV2 RNA(COVID-19) Ceph NEGATIVE (Negative)
[2024-02-20] MEDS ORDERED: ONDANSETRON INJ 2 MG/ML 2 ML VIAL IV PRN (17:49)
[2024-02-20] MEDS ORDERED: NITROGLYCERIN SL 0.4 MG/TAB TAB SL PRN (17:49)
[2024-02-20] MEDS ORDERED: SENNA 8.6 MG TAB PO PRN (17:49)
[2024-02-20] MEDS ORDERED: MECLIZINE HCL 25 MG TAB PO PRN (17:49)
[2024-02-20] MEDS ORDERED: CETIRIZINE HCL 10 MG TABLET PO PRN (17:49)
[2024-02-20] MEDS ORDERED: ARTIFICIAL TEARS OP PRN (19:40)
[2024-02-20] MEDS: DOCUSATE SODIUM 100 MG CAP PO SCH (19:51)
[2024-02-20] MEDS: PANTOprazole 40 MG in SYRINGE 0 ML IV SCH (19:53)
[2024-02-20] MEDS: AZELASTINE HCL 0.1% NASAL 200 SPRAYS/27,400 MCG BTL SCH (19:53)
[2024-02-20] MEDS: Patient's HEIGHT &/or WEIGHT Needed SCH (19:54)
[2024-02-20] MEDS: FLUTICASONE PROPIONATE NA SPR 16 GM BTL SCH (19:54)
[2024-02-20] MEDS: lisinopril 2.5 MG TAB PO ONE (20:14)
[2024-02-20] MEDS: traMADol HCL 50 MG TABLET PO STA (20:15)
[2024-02-20] MEDS: traMADol HCL 50 MG TABLET PO SCH (20:23)
[2024-02-20] MEDS: lisinopril 2.5 MG TAB PO SCH (21:29)
[2024-02-20] MEDS: METOPROLOL TARTRATE 25 MG TAB PO ONE (21:29)
[2024-02-20] MEDS: CLOPIDOGREL BISULFATE 75 MG TAB PO SCH (21:30)
[2024-02-20] MEDS: HYDROXYCHLOROQUINE SULFATE 200 MG TAB PO SCH (21:30)
[2024-02-21] MEDS: hydrALAZINE HCL 20 MG/ML VIAL IV PRN (00:24)
--- OUTSIDE RECORDS SUMMARY | 2024-02-21 01:29 | External Medical Summary ---
Author Name Unknown Address Unknown Organization [id number]:[facility] [place] - [address] [place] [id number] Laboratory Report Ordering Provider Test Date Status MICHELLEMARIBELLCOCO 02/12/2024 12:47:18 Final Observation Date Value Abnormality Reference (Units ) Status CRP, low-sensitivity 02/12/2024 12:47:18 8 Above high normal <=5 (mg/L) Final Performing Location [facility] - [address] [place] [id number]
--- OUTSIDE RECORDS SUMMARY | 2024-02-21 01:29 | External Medical Summary | Summary of Care ---
Author Name Unknown Organization [facility] Address [address] 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 Name Role Phone Missy Murillo MD Primary Care Provider Reason for Visit * Reason Comments Outpatient Testing Encounter Details Date Type Department Care Team (Late st Contact Info) Description 02/12/2024 12:50 PM EDT Laboratory [facility] [place] [address] [place] [address] [place], Lab Scenery [address] [place] [address] Dyslipidemia, goal LDL below 70; HTN, goal below 140/90; Acute intractable tension-type headache; Acquired hypothyroidism; Microcalcifications of the breast Allergies Active Allergy Reactions Criticality Noted Date Comments Venlafaxine Hydrochloride Itching 06/22/2013 Harold Flavor Hives 04/24/2023 Sulfa Antibiotics Conjunctivitis 05/01/2000 Nonimmunologic sxs documented as of this encounter (statuses as of 02/12/2024) Medications Medication Sig Dispensed Refills Start Date End Date Status [facility] PROBIOTIC PO CAPS one capsule by mouth once daily 0 06/18/2013 Active polyethylene glycol 3350 (MIRALAX) 255 gram powderIndications:Co nstipation Dissolve two capfuls in 8 oz of water or juice daily 3 Bottle 2 12/19/2016 Active nitroglycerin (NITROSTAT) 0.[address] 1 Tablet under the tongue every 5 minutes as needed. 0 Active Aspirin 81 MG Oral Tablet Delayed Release TAKE 1 TABLET BY MOUTH EVERY DAY 90 Tab 2 11/02/2020 Active Zinc 50 MG Oral Capsule Take 1 Capsule by mouth in the morning. 0 Active Restasis 0.05 % Ophthalmic Emulsion INSTILL 1 DROP INTO AFFECTED EYE EVERY 12 HOURS 0 01/12/2021 Active Vitamin D (Cholecalciferol) 50 MCG (2000 UT) Oral Capsule Take by mouth . 0 Active Fluticasone Propionate 50 MCG/ACT Nasal Suspension (Flonase)Indications :Chronic sinusitis, unspecified location ADMINISTER 2 SPRAYS INTO EACH NOSTRIL DAILY. 48 mL 3 03/08/2022 Active Clobetasol Propionate 0.05 % External Shampoo Apply to scalp when washing hair and rinse after 2-3 min 118 mL 5 05/14/2022 Active Tacrolimus 0.1 % External Ointment (Protopic) Apply topically to affected area 2 times a day . Apply to spots on face twice daily 60 g 5 05/14/2022 Active Clobetasol Propionate 0.05 % External Cream (Temovate)Indication s:SLE (systemic lupus erythematosus related syndrome) ([facility]) APPLY TO LUPUS ON THE BODY TWICE DAILY NEEDED FOR FLARES. 60 g 1 06/04/2022 Active Docusate Sodium 100 MG Oral Capsule (Colace) TAKE 1 SOFTGEL TWICE A DAY Strength: 100 mg 180 Capsule 2 11/08/2022 Active Metoprolol Succinate ER 25 MG Oral Tablet Extended Release 24 Hour (toPROL XL)Indications:Heart failure, systolic, due to CAD (HCC),HTN, goal below 140/90 Take 1 Tablet by mouth in the morning. 90 Tablet 3 02/11/2023 Active Levothyroxine Sodium 112 MCG Oral Tablet (Synthroid)Indicatio ns:Acquired hypothyroidism Take 1 Tablet by mouth daily first thing in the morning. (at least 30 min prior to breakfast or other meds) REZA brand name Synthroid 90 Tablet 3 06/11/2023 Active [facility] Senna 8.6 MG Oral Tablet TAKE 1 TABLET BY ORAL ROUTE 2 TIMES EVERY DAY NEEDED FOR CONSTIPATION NEEDED 0 04/24/2023 Active Multi-Vitamin Oral Tablet Take 1 Tablet by mouth. 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 135 Tablet 1 07/25/2023 Active Hydroxychloroquine Sulfate 200 MG Oral Tablet (Plaquenil) Take 1 tablet by mouth every day at bedtime 90 Tablet 1 08/21/2023 Active Lisinopril 2.5 MG Oral Tablet (Prinivil)Indication s:HTN, goal below 140/90 TAKE 1 TABLET BY MOUTH EVERY DAY 90 Tablet 3 08/22/2023 Active Ofloxacin 0.3 % Otic Solution (Floxin) 5 Drops as needed (for ear wax, per ENT). 0 Active Mupirocin 2 % External Ointment (Bactroban) Apply topically to affected area 3 times a day. As directed. 15 g 1 11/05/2023 Active Cetirizine HCl 10 MG Oral Tablet (ZyrTEC Allergy)Indications: Chronic nonseasonal allergic rhinitis due to pollen Take 1 Tablet by mouth daily as needed for Rhinitis. 0 11/22/2023 Active Atorvastatin Calcium 80 MG Oral Tablet (Lipitor)Indications :Presence of stent in LAD coronary artery,Dyslipidemia, goal LDL below 70,Retinal artery occlusion,History of CVA with residual deficit Take 1 Tablet by mouth in the morning. Inc 11/22/2023. 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 If BP still low on 3/4 hold until directed. 0 01/15/2024 Active Azelastine HCl 0.1 % Nasal Solution (Astelin)Indications :Chronic frontal sinusitis Administer 1 [place] into nostril in the morning and 1 [place] before bedtime. 30 mL 12 01/15/2024 Active Meclizine HCl 12.5 MG Oral Tablet (Antivert)Indication s:Vertigo Take 1 Tablet by mouth 3 times a day as needed for Dizziness. 40 Tablet 1 01/15/2024 Active traMADol HCl 50 MG Oral Tablet (Ultram)Indications: Non-recurrent acute suppurative otitis media of left ear with spontaneous rupture of tympanic membrane Take 1 Tablet by mouth at bedtime as needed for Pain, Moderate or Pain, Severe. 20 Tablet 0 02/12/2024 Active Hospital, Clinic, or Other Facility Administered Medication Ordered Dose Route Frequency Start Date End Date Status denosumab (PROLIA) subcut inj 60 mgIndications:Senile osteoporosis 60 mg SC [id number] 04/15/2020 Active documented as of this encounter (statuses as of 02/12/2024) Active Problems Problem Noted Date Diagnosed Date Ischemic cardiomyopathy 11/22/2023 Status post left hip replacement 11/22/2023 Leukopenia 11/22/2023 Microcalcifications of the breast 12/11/2022 Immunocompromised state 03/08/2022 Neutropenia 07/02/2019 Cachectic 01/29/2019 TOVA (generalized anxiety disorder) 09/02/2017 Diastolic heart failure seco ndary to coronary artery disease, chronic 08/01/[address] elevation myocardial infarction ([facility]) 07/19/2017 Presence of stent in LAD coronary artery 017 Overview: MARY - [address] Barton Slow transit constipation 06/27/2016 Orthostatic hypotension 04/08/2014 Raynaud's disease without gangrene 04/08/2014 Reactive hypoglycemia 10/02/2013 Senile osteoporosis 03/02/2013 Dyslipidemia, goal LDL below 70 10/16/2012 HTN, goal below 140/90 07/15/2012 Encounter for long-term (current) use of medicat ions 06/02/2012 SLE (systemic lupus erythematosus related syndro me) 11/08/2010 SIADH (syndrome of inappropriate ADH production) 04/24/2010 ADVANCE DIRECTIVE INFORMATION 04/17/2005 Overview: No, Advance Directive brochure given to patient. Acquired hypothyroidism Chronic nonseasonal allergic rhinitis due to janak marisol Retinal artery occlusion Overview: being followed by Dr [facility] [place] [facility] History of stroke Overview: small lacunae in Rt basal ganaglia unknown duration documented as of this encounter (statuses as of 02/12/2024) Resolved Problems Problem Noted Date Diagnosed Date Resolved Date Generalized edema 06/06/2021 11/22/2023 Heart failure, systolic, due to CAD 07/23/2017 06/27/2018 Chest pain 06/30/2014 08/08/2015 Atrial thrombosis 06/16/2012 07/15/2012 Anticoagulation management encounter 06/02/2012 06/02/2012 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 06/02/2012 06/02/2012 Overview: ICD-10 update of inactive term Heart failure due to valvular disease 06/02/2012 06/02/2012 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 06/02/2012 12/19/2012 Overview: ICD-10 update of inactive term Cerebrovascular disease, art eriosclerotic, post-stroke 06/02/2012 12/19/2012 Syncope and collapse 02/27/2008 012 Overview: questionable seizure ABDOMINAL TENDERNESS, LEFT LOWER QUADRANT 09/29/2003 12/17/2011 Overview: diverticulosis on colonoscopy 09/21/03 Lupus erythematosus 09/14/2002 11/08/20 10 Major depressive disorder Overview: ICD-10 update of inactive term LUMBAR DISC DISPLACEMENT documented as of this encounter (statuses as of 02/12/2024) Immunizations Name Administration Dates Next Due COVID-19 mRNA, LNP-s, No Pre serve, 2-Dose Series (Anteryon) 08/10/2021,02/21/2021,01/31/2021 COVID-19, LNP-s, No Preserve , Brennan-sucrose, Ages 12+ (Anteryon) 04/27/2022 COVID-19, MRNA-LNP, 23-24, P F, 30 MCG/0.3 mL, 12 YRS AND ABOVE, IM (PFIZER-Comirnaty) 08/29/2023 Covid-19, Mrna, Lnp-s, Pf, B ivalent, 30 Mcg, IM, 12 yrs and above (Pfizer) 08/31/2022 HepA Inact/HepB Recomb>=18yrs old 03/22/2022,,09/07/2021 PPD 09/07/2009,08/30/2008 Pneumococcal Conjugate Vacc, 13 Valent (Prevnar) 08/08/2015 Pneumococcal Polysaccharide PPV23 (Pneumovax) 11/17/2012 RSV Vac., Recomb, Adjuvant, PF,0.5 Ml (Arexvy) 09/02/2023 Season Influenza, Quad, PF, Adjuvanted, 65+ Yrs, IM (FLUAD) 08/10/2021 Seasonal Influenza, PF, 6 M & above, IM , (FluLaval or Fluzone) 07/14/2020,08/12/2018,09/02/2017 Seasonal Influenza, Quadriva lent Hd (Fluzone Hd) 09/07/2022 Seasonal Influenza, Quadriva lent, No Preserve, IM 08/29/2023,08/14/2016 Seasonal Influenza, Split, I IV3, With Preserve, Inj 08/08/2015,08/02/2014,08/13/2013,09/17,07/26/2011,09/06/2010,07/29/2009 ,08/30/2008,09/18/2007,09/10/2006 Seasonal Influenza, Trivalen t, Adjuvanted, 65+ yrs 08/18/2019 TDAP (age 10 and older)(Boostrix) 07/01/2020 TDAP (age 11 and older)(Adacel) 04/27/2010 Varicella Zoster Vaccine (Adult) 12/19/2012 Zoster Vaccine Recombinant (Shingrix) 09/19/2020 ,07/14/2020 documented as of this encounter Social History Tobacco Use Types Packs/Day Years Used Date Smoking Tobacco: Former Cigarettes 0.5 15 0 02/16/1971 - 02/16/1986 Smokeless Tobacco: Never Comments:Smoked off and on d uring the 15 year period Passive smoke exposure as child Both Parents smoked None currently Alcohol Use Standard Drinks/Week Comments Yes 0 (1 standard drink = 0.6 oz pur e alcohol) Rare PHQ-2 Answer Date Recorded PHQ Adult Total Score 0 04/02/2023 Hunger Vital Sign Answer Date Recorded Worried About Running Out of Food in the Last Ye ar Never true 02/12/2020 Ran Out of Food in the Last Year Never true 02/12/2020 Sex and Gender Information Value Date Recorded Sex Assigned at Female 03/10/2019 1:15 PM EDT Gender Identity Female 03/10/2019 1:15 PM EDT Sexual Orientation Straight 03/10/2019 1: 15 PM EDT Job Start Date Occupation Industry Not on file Not on file Not on file documented as of this encounter Plan of Treatment Upcoming Encounters Date Type Department Care Team (Late st Contact Info) Description 02/21/2024 11:45 AM EDT Office Visit Otolaryngology [facility] [address] [place] [address] [place], [address] [place] [address] 03/06/2024 11:20 AM EDT Office Visit Dermatology [facility] [place] [address] [place] [address] Dina Pearson PA-C [address] [facility] [place] [phone] 03/10/2024 9:40 AM EDT Office Visit General Internal Medicine [facility] [place] [address] [place] [address] Missy Murillo MD [address] [facility] [place] [address] 04/14/2024 1:30 PM EDT Office Visit Cardiology, [facility] [address] [place] [address] Ryan Jean Baptiste, DO [address] [place] [address] 05/28/2024 11:40 AM EDT Office Visit Otolaryngology [facility] [address] [place] [address] Lelo Wynn PA-C [address] [place] [address] 06/22/2024 8:30 AM EDT Office Visit Rheumatology [facility] [address] [place] [address] Stuart Pineda CRNP [address] [place] [address] Pending Results Name Type Priority Associated Diagnoses Date /Time LDL CHOLESTEROL (DIRECT MEASURE) Lab Routine Dyslipidemia, goal LDL below 70 02/12/2024 12:47 PM EDT COMPREHENSIVE METABOLIC PANEL Lab Routine HTN, goal below 140/90 Dyslipidemia, goal LDL below 70 02/12/2024 12:47 PM EDT ERYTHROCYTE SEDIMENTATION RATE (ESR) Lab Routine Acute intractable tension-type headache 02/12/2024 12:47 PM EDT CRP (INFLAMMATORY MARKER) Lab Routine Acute intractable tension-type headache 02/12/2024 12:47 PM EDT TSH WITH FREE T4 IF INDICATED Lab Routine Acquired hypothyroidism 02/12/2024 12:47 PM EDT CBC WITH WBC DIFFERENTIAL Lab Routine Microcalcifications of the breast 02/12/2024 12:47 PM EDT CBC Lab Routine Microcalcifications of the breast 02/12/2024 12:47 PM EDT DIFFERENTIAL, AUTOMATED Lab Routine Microcalcifications of the breast 02/12/2024 12:47 PM EDT Health Maintenance Due Date Last Done Comments Depression Screening 04/02/2024 04/02/2023 GFR 09/30/2024 09/30/2023, 06/2023, 01/16/2023, Additional history exists TSH 09/30/2024 09/30/2023, 0 06/2023, 02/25/2023, Additional history exists DXA Scan 06/17/2025 06/17/2023, 0611/2020, 03/25/2019, Additional history exists Albumin/Creatinine Ratio 09/07/2025 09/07/2022 DTaP,Tdap,and Td Vaccines (3 - Td or Tdap) 07/01/2030 07/01/2020, 04/27/2010, 07/22/2003 Colonoscopy Discontinued 09/30/2014, 07/22/2014 Pneumococcal Vaccine: 65+ Years Completed 08/08/2015, 11/17/2012, 10/16/2004 Colorectal Cancer Screening Discontinued Fecal Occult Blood Test Discontinued 04/14/2019 Zoster Vaccines Completed 09/19/2020, 06/19, 12/19/2012 Hepatitis B Completed 03/22/2022, 09/19, 09/07/2021 COVID-19 Vaccine Completed 08/29/2023, , 04/27/2022, Additional history exists Influenza Vaccine (FLU shot) Completed 08/29/2023, 09/07/2022, 08/10/2021, Additional history exists VITAMIN D LEVEL ONCE IN A LIFETIME-USE SMARTSET# [id number] Completed 09/30/2023, 08/31/2022, 11/09/2020, Additional history exists Cologuard Discontinued GARDASIL-HPV IMMUNIZATION SERIES Aged Out No longer eligible based on patient's age to complete this topic MENINGOCOCCAL (MENACTRA/MENVEO) Aged Out No longer eligible based on patient's age to complete this topic Sigmoidoscopy Discontinued documented as of this encounter Medical Devices Not on filedocumented as of this encounter Visit Diagnoses Diagnosis Dyslipidemia, goal LDL below 70 Other and unspecified hyperlipidemia HTN, goal below 140/90 Unspecified essential hypertension Acute intractable tension-type headache Acquired hypothyroidism Unspecified hypothyroidism Microcalcifications of the breast Mammographic microcalcification documented in this encounter Advance Directives Latest Code Status on File Code Status Date Activated Date Inactivated Comments Full Code 12/11/2022 8:30 AM 12/11/2022 4:54 PM This order reflects the patients wishes and were consensually agreed upon. Question Answer Comments Discussion of Advance Directives occurred with: Patient Care Teams Retort Operator Relationship Specialty Start Date End Date Missy Murillo MD [address] [facility] [place] [address] PCP - General Internal Medicine 12/27/23 documented as of this encounter
--- OUTSIDE RECORDS SUMMARY | 2024-02-21 01:29 | External Medical Summary | Summary of Care ---
Author Name Unknown Organization [facility] Address [address] [place] [address] Phone [phone] Care Team Providers Care Farmer And Grazier Name Role Phone Missy Murillo MD Primary Care Provider [phone] Reason for Visit * Reason Comments Follow Up Still having pain in left side of head into her left ear, requesting refill on pain meds. Would like to discuss CT scan results. Sees ENT next week for her left ear, still unable to hear well out of that ear. Encounter Details Date Type Department Care Team (Latest Contact Info) Description 02/12/2024 12:00 PM EDT Office Visit General Internal Medicine [facility] [place] [address] [place] [address] Missy Murillo MD [address] [facility] [place] [address] Acute intractable tension-type headache*; Vestibular labyrinthitis, left; SLE (systemic lupus erythematosus related syndrome) ([facility]); SIADH (syndrome of inappropriate ADH production) ([facility]); Slow transit constipation; Status post left hip replacement; Non-recurrent acute suppurative otitis media of left ear with spontaneous rupture of tympanic membrane; Retinal artery occlusion; Senile osteoporosis; Raynaud's disease without gangrene; Wax in ear; Presence of stent in LAD coronary artery; Orthostatic hypotension; Neutropenia, unspecified type ([facility]); Microcalcifications of the breast; Leukopenia, unspecified type; Immunocompromised state ([facility]); History of stroke; HTN, goal below 140/90; TOVA (generalized anxiety disorder); Encounter for long-term (current) use of medications; Dyslipidemia, goal LDL below 70; History of ST elevation myocardial infarction (STEMI); 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, chronic (HCC); Chronic nonseasonal allergic rhinitis due to pollen; Cachectic (HCC); Acquired hypothyroidism Allergies Active Allergy Reactions Criticality Noted Date Comments Venlafaxine Hydrochloride Itching 06/22/2013 [place] Flavor Hives 04/24/2023 Sulfa Antibiotics Conjunctivitis 05/01/2000 Nonimmunologic sxs documented as of this encounter (statuses as of 02/13/2024) Medications Medication Sig Dispensed Refills Start Date End Date Status [facility] PROBIOTIC PO CAPS one capsule by mouth once daily 0 06/18/20 13 Active polyethylene glycol 3350 (MIRALAX) 255 gram powderIndications: Constipation Dissolve two capfuls in 8 oz of water or juice daily 3 Bottle 2 12/19/19 17 Active nitroglycerin (NITROSTAT) 0.[address] 1 Tablet under the tongue every 5 minutes as needed. 0 Active Aspirin 81 MG Oral Tablet Delayed Release TAKE 1 TABLET BY MOUTH EVERY DAY 90 Tab 2 11/02/20 20 Active Zinc 50 MG Oral Capsule Take 1 Capsule by mouth in the morning. 0 Active Restasis 0.05 % Ophthalmic Emulsion INSTILL 1 DROP INTO AFFECTED EYE EVERY 12 HOURS 0 01/12/20 21 Active Vitamin D (Cholecalciferol) 50 MCG (2000 UT) Oral Capsule Take by mouth . 0 Active Fluticasone Propionate 50 MCG/ACT Nasal Suspension (Flonase)Indicatio ns:Chronic sinusitis, unspecified location ADMINISTER 2 SPRAYS INTO EACH NOSTRIL DAILY. 48 mL 3 03/08/20 22 Active Clobetasol Propionate 0.05 % External Shampoo Apply to scalp when washing hair and rinse after 2-3 min 118 mL 5 05/14/20 22 Active Tacrolimus 0.1 % External Ointment (Protopic) Apply topically to affected area 2 times a day . Apply to spots on face twice daily 60 g 5 05/14/20 22 Active Clobetasol Propionate 0.05 % External Cream (Temovate)Indicati ons:SLE (systemic lupus erythematosus related syndrome) ([facility]) APPLY TO LUPUS ON THE BODY TWICE DAILY NEEDED FOR FLARES. 60 g 1 06/04/20 22 Active Docusate Sodium 100 MG Oral Capsule (Colace) TAKE 1 SOFTGEL TWICE A DAY Strength: 100 mg 180 Capsule 2 11/08/20 22 Active Levothyroxine Sodium 112 MCG Oral Tablet (Synthroid)Indicat ions:Acquired hypothyroidism Take 1 Tablet by mouth daily first thing in the morning. (at least 30 min prior to breakfast or other meds) REZA brand name Synthroid 90 Tablet 3 06/11/20 23 Active [facility] Senna 8.6 MG Oral Tablet TAKE 1 TABLET BY ORAL ROUTE 2 TIMES EVERY DAY NEEDED FOR CONSTIPATION NEEDED 0 04/24/20 23 Active Multi-Vitamin Oral Tablet Take 1 Tablet by mouth. 0 Active oxyCODONE HCl 5 MG Oral Tablet (Oxy IR) 0 04/24/20 23 Active Furosemide 20 MG Oral Tablet (Lasix)Indications :HTN, goal below 140/90,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, chronic (HCC) Take 1 Tablet by mouth in the morning. 135 Tablet 1 07/25/20 23 Active Hydroxychloroquine Sulfate 200 MG Oral Tablet (Plaquenil) Take 1 tablet by mouth every day at bedtime 90 Tablet 1 08/21/20 23 Active Lisinopril 2.5 MG Oral Tablet (Prinivil)Indicati ons:HTN, goal below 140/90 TAKE 1 TABLET BY MOUTH EVERY DAY 90 Tablet 3 08/22/20 23 Active Ofloxacin 0.3 % Otic Solution (Floxin) 5 Drops as needed (for ear wax, per ENT). 0 Active Mupirocin 2 % External Ointment (Bactroban) Apply topically to affected area 3 times a day. As directed. 15 g 1 11/05/20 23 Active Cetirizine HCl 10 MG Oral Tablet (ZyrTEC Allergy)Indication s:Chronic nonseasonal allergic rhinitis due to pollen Take 1 Tablet by mouth daily as needed for Rhinitis. 0 11/22/19 24 Active Atorvastatin Calcium 80 MG Oral Tablet (Lipitor)Indicatio ns:Presence of stent in LAD coronary artery,Dyslipidemi a, goal LDL below 70,Retinal artery occlusion,History of CVA with residual deficit Take 1 Tablet by mouth in the morning. Inc 11/22/2023. 90 Tablet 3 11/22/19 24 Active Ensure Complete Oral LiquidIndications: Underweight 1 cup daily-st 11/23/2023 0 11/22/19 24 Active Clopidogrel Bisulfate 75 MG Oral Tablet (pLAVix)Indication s:Presence of stent in LAD coronary artery,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, chronic (HCC) TAKE 1 TABLET BY MOUTH EVERY DAY 90 Tablet 3 12/09/19 24 Active Fluconazole 150 MG Oral Tablet (Diflucan)Indicati ons:Candidal vulvovaginitis Take 1 pill Today and repeat in 2 weeks 2 Tablet 0 12/27/19 24 Active amLODIPine Besylate 2.5 MG Oral Tablet (Norvasc)Indicatio ns:HTN, goal below 140/90 Take 0.5 Tablets by mouth in the morning. If BP still low on 01/19 hold until directed. 0 01/15/20 24 Active Azelastine HCl 0.1 % Nasal Solution (Astelin)Indicatio ns:Chronic frontal sinusitis Administer 1 [place] into nostril in the morning and 1 [place] before bedtime. 30 mL 12 01/15/20 24 Active Meclizine HCl 12.5 MG Oral Tablet (Antivert)Indicati ons:Vertigo Take 1 Tablet by mouth 3 times a day as needed for Dizziness. 40 Tablet 1 01/15/20 24 Active traMADol HCl 50 MG Oral Tablet (Ultram)Indication s:Non-recurrent acute suppurative otitis media of left ear with spontaneous rupture of tympanic membrane Take 1 Tablet by mouth at bedtime as needed for Pain, Moderate or Pain, Severe. 20 Tablet 0 02/12/20 24 Active Metoprolol Succinate ER 25 MG Oral Tablet Extended Release 24 Hour (toPROL XL)Indications:Hea rt failure, systolic, due to CAD (HCC),HTN, goal below 140/90 Take 1 Tablet by mouth in the morning. 90 Tablet 3 02/12/20 23 024 Discontinued traMADol HCl 50 MG Oral Tablet (Ultram)Indication s:Non-recurrent acute suppurative otitis media of left ear with spontaneous rupture of tympanic membrane Take 1 Tablet by mouth 2 times a day as needed for Pain, Moderate or Pain, Severe. 20 Tablet 0 12/27/19 24 024 Discontinued(Re fill) predniSONE 10 MG Oral Tablet (Deltasone)Indicat ions:Vertigo,Chron ic frontal sinusitis Take 4 tabs for 3 days, 3 tabs for 3 days, 2 tabs for 2 days 1 tab for 2 days 30 Tablet 0 01/15/20 24 024 Discontinued Hospital, Clinic, or Other Facility Administered Medication Ordered Dose Route Frequency Start Date End Date Status denosumab (PROLIA) subcut inj 60 mgIndications:Senile osteoporosis 60 mg SC [id number] 04/15/2020 Active documented as of this encounter (statuses as of 02/13/2024) Active Problems Problem Noted Date Diagnosed Date [...] followed by [facility] History of stroke Overview: small lacunae in Rt basal ganaglia unknown duration documented as of this encounter (statuses as of 02/13/2024) Resolved Problems Problem Noted Date Diagnosed Date Resolved Date Generalized edema 06/06/2021 11/22/2023 Heart failure, systolic, due to CAD 07/23/2017 06/27/2018 Chest pain 06/30/2014 08/08/2015 Atrial thrombosis 06/16/2012 07/15/2012 Anticoagulation management encounter 06/02/2012 06/02/2012 [facility] current use of ant icoagulant therapy 06/02/2012 06/02/2012 Overview: ICD-10 update of inactive term Heart failure due to valvular disease 06/02/2012 06/02/2012 manager terminal current use of ant icoagulant therapy 06/02/2012 [...] as of this encounter (statuses as of 02/13/2024) Immunizations Name Administration Dates Next Due COVID-19 mRNA, LNP-s, No Pre serve, 2-Dose Series ([employer]) 08/10/2021,02/21/2021,01/31/2021 COVID-19, LNP-s, No Preserve , Brennan-sucrose, Ages 12+ ([employer]) 04/27/2022 COVID-19, MRNA-LNP, 23-24, P F, 30 MCG/0.3 mL, 12 YRS AND ABOVE, IM ([facility]) 08/29/2023 Covid-19, Mrna, Lnp-s, Pf, B ivalent, 30 Mcg, IM, 12 yrs and above ([employer]) 08/31/2022 HepA Inact/HepB Recomb>=18yrs old 03/22/2022,,09/07/2021 PPD [...] on file documented as of this encounter Last Filed Vital Signs Vital Sign Reading Time Taken Comments Blood Pressure 118/66 02/12/2024 12:06 PM EDT Pulse 68 02/12/2024 12:06 PM EDT Temperature 36.7 C (98 F) 02/12/2024 12:06 PM EDT Respiratory Rate - - Oxygen Saturation - - Inhaled Oxygen Concentration - - Weight 39.6 kg (87 lb 6.4 oz) 02/12/2024 12:06 P M EDT Height - - Body Mass Index 17.07 01/06/2024 9:53 AM EST documented in this encounter Progress Notes * Missy Murillo MD - 02/12/2024 12:10 PM EDT Images from the original note were not included. History of Present Illness Leyla Gaona is a 78 year old female that presents for Follow Up (Still having pain in left side ofhead into her left ear, requesting refill on pain meds. Would like to discuss CT scan results. SeesENT next week for her left ear, still unable to hear well out of that ear. ) 78 YOF with PMH of CAD with his of NSTMI, HTN, recurrent retinal artery occlusion, hypothyroidism, stroke , hyperlipidemia, lupus, SIADH, allergic rhinitis, DDD of lumbar spine presents here for recheck of her vertigo. Acute concern :- -Still having pain in left side of head into her left ear, requesting refill on pain meds. Would like to discuss CT scan results. Sees ENT next week for her left ear, still unable to hear well out ofthat ear. Prednisone taper and Astelin helped jaun with pain and some dizziness and now symptoms back jaun pain at night . Initially suspected of otitis media and underwent ear gtt and antibiotic which also helped but temporarily -I reviewed all records again OP , ER visit including all tests done and didn't see sed rate and CRP -some discomfort in left rastafarian area and left ear at baseline . When pain comes it's unbearable esoat night when wakes up asso with loud ringing , feels shaky , exhausted and off balance . BP been low . Instead of cutting into half of 2.5 mg she is taking full due to not sharif to . 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 Watching diet and exercise : low appetite , less activity Routine labs : due soon Routine HM : uptodate Chronic medical problem: reviewed and stable Physical Exam Vitals: 02/12/24 1206 Temp: 36.7 C (98 F) Pulse: 68 BP: 118/66 BP Readings from Last 3 Encounters: 02/12/24 118/66 01/15/24 112/70 12/27/23 128/72 Wt Readings from Last 3 Encounters: 02/12/24 39.6 kg (87 lb 6.4 oz) 01/15/24 40.9 kg (90 lb 3.2 oz) 01/06/24 40.4 kg (89 lb) Physical Exam Vitals and nursing note reviewed. Constitutional: General: She is in acute distress. Appearance: She is normal weight. She is ill-appearing. Comments: Cachectic HENT: Head: Normocephalic. Right Ear: Ear canal and external ear normal. Decreased hearing noted. A middle ear effusion is present. There is no impacted cerumen. Tympanic membrane is scarred. Left Ear: Decreased hearing noted. There is impacted cerumen. Ears: Comments: Tenderness in front of left ear , TMJ and Left rastafarian Nose: Congestion present. Comments: Crust and edema Cardiovascular: Rate and Rhythm: Normal rate and regular rhythm. Pulmonary: Effort: Pulmonary effort is normal. No respiratory distress. Breath sounds: No wheezing. Abdominal: General: Bowel sounds are normal. There is no distension. Palpations: Abdomen is soft. There is no mass. Musculoskeletal: General: No swelling or tenderness. Cervical back: Neck supple. No rigidity. Skin: General: Skin is warm. Findings: No erythema or rash. Neurological: General: No focal deficit present. Mental Status: She is alert. Motor: Weakness (generalized) present. Gait: Gait abnormal. 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 due to sudden onset SNHL , vestibular dysfunction same side andno lesion on MRI \ SLE (systemic lupus erythematosus related syndrome) ([facility]) Stable Continue current treatment as directed by rheum SIADH (syndrome of inappropriate ADH production) ([facility]) Fluid restriction Slow transit constipation Stable Continue current treatment as directed Status post left hip replacement Non-recurrent acute suppurative otitis media of left ear with spontaneous rupture of tympanic membrane I have reviewed the patients controlled substance dispensing history in the Prescription Drug Monitoring Program in compliance with the [facility] regulations before prescribing a controlled substance. - traMADol HCl 50 MG Oral Tablet (Ultram); Take 1 Tablet by mouth at bedtime as needed for Pain, Moderate or Pain, Severe. Retinal artery occlusion Senile osteoporosis Raynaud's disease without gangrene Wax in ear Defer to ENT due to complexity of issue and in case - suction better than flushing Presence of stent in LAD coronary artery Orthostatic hypotension Hold amlodepine and cont other meds Neutropenia, unspecified type ([facility]) Microcalcifications of the breast - CBC WITH WBC DIFFERENTIAL; Future Leukopenia, unspecified type Immunocompromised state ([facility]) History of stroke HTN, goal below 140/90 Hold amlodipine with low BP , orthostasis with close f/u - COMPREHENSIVE METABOLIC PANEL; Future TOVA (generalized anxiety disorder) Encounter for long-term (current) use of medications Dyslipidemia, goal LDL below 70 - LDL CHOLESTEROL (DIRECT MEASURE); Future - COMPREHENSIVE METABOLIC PANEL; Future History of ST elevation myocardial infarction (STEMI) 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, chronic (HCC) Chronic nonseasonal allergic rhinitis due to pollen Cachectic ([facility]) Acquired hypothyroidism - TSH WITH FREE T4 IF INDICATED; Future Wrap-Up Time: I spent a total of 40-54 minutes (exact time 50 mins) on the date of service in preparation, delivery, and documentation of the care provided to Leyla Gaona excluding any time spent in the performance of separately billed services. Addendum : Her high sed rate and CRP makes it suspicious for GCA or vasculitis vestibular labyrinthitis High dose steroid started with surgery consult for biopsy Discussed plan with Dr Newton and Dr Vasquez Pt updated Missy Murillo MD 02/13/2024 documented in this encounter Nursing Notes * Lucy Das LPN - 02/12/2024 12:06 PM EDT Chief Complaint Patient presents with Follow Up Still having pain in left side of head into her left ear, requesting refill on pain meds. Would like to discuss CT scan results. Sees ENT next week for her left ear, still unable to hear well out of that ear. documented in this encounter Plan of Treatment Upcoming Encounters Date Type Department Care Team (Late st Contact Info) Description 02/21/2024 11:45 AM EDT Office Visit Otolaryngology [facility] [address] [place] [id number] Dc Diamond DO [address] [place] [id number] 02/27/2024 8:00 AM EDT Laboratory Laboratory [facility] [address] [place] [phone] [facility] [address] [place] [id number] 03/06/2024 11:20 AM EDT Office Visit Dermatology [facility] [address] [place] [address] Dina Pearson PA-C [address] [place] [phone] 03/10/2024 9:40 AM EDT Office Visit General Internal Medicine [facility] [address] [place] [address] Missy Murillo MD [address] [place] [id number] 04/14/2024 1:30 PM EDT Office Visit Cardiology, [facility] [address] [place] [address] Ryan Jean Baptiste DO [address] [place] [phone] 05/28/2024 11:40 AM EDT Office Visit Otolaryngology [facility] [address] [place] [address] Lelo Wynn PA-C [address] [place] [address] 06/22/2024 8:30 AM EDT Office Visit Rheumatology [facility] [address] [place] [address] Stuart Pineda CRNP [address] [place] [address] Health Maintenance Due Date Last Done Comments Depression Screening 04/02/2024 04/02/2023 GFR 02/11/2025 02/12/2024, 09/18, 04/25/2023, Additional history exists TSH 02/11/2025 02/12/2024, 09/18, 03/25/2023, Additional history exists DXA Scan 06/17/2025 06/17/2023, 04/19, 03/25/2019, Additional history exists Albumin/Creatinine Ratio 09/07/2025 [...] D LEVEL ONCE IN A LIFETIME-USE SMARTSET# 30290 Completed 09/30/2023, 08/31/2022, 11/09/2020, Additional history exists Cologuard Discontinued GARDASIL-HPV IMMUNIZATION SERIES Aged Out No longer eligible based on patient's age to complete this topic MENINGOCOCCAL (MENACTRA/MENVEO) Aged Out No longer eligible based on patient's age to complete this topic Sigmoidoscopy Discontinued documented as of this encounter Medical Devices Not on filedocumented as of this encounter Results * TSH WITH FREE T4 IF INDICATED (02/12/2024 12:47 PM EDT) Pathologist [facility] TSH 1.54 0.27 - 4.20 uIU/mL 02/12/2024 10:02 PM EDT [facility] Blood Venous blood specimen / Unknown Venipuncture / Unknown 02/12/2024 12:47 PM EDT 02/12/2024 12:47 PM EDT Missy Murillo MD LAB BLOOD ORDERABLES [facility] [address] [place] [address] * (ABNORMAL) CRP (INFLAMMATORY MARKER) (02/12/2024 12:47 PM EDT) CRP (Inflammatory Marker) 8(H) <=5 mg/L 02/12/2024 9:29 PM EDT [facility] Blood Venous blood specimen / Unknown Venipuncture / Unknown 02/12/2024 12:47 PM EDT 02/12/2024 12:47 PM EDT Missy Murillo MD LAB BLOOD ORDERABLES [facility] [address] [place] [address] * (ABNORMAL) ERYTHROCYTE SEDIMENTATION RATE (ESR) (02/12/2024 12:47 PM EDT) Pathologist [facility] ESR 41(H) <30 mm/hour 02/12/2024 4:47 PM EDT [facility] Blood Venous blood specimen / Unknown Venipuncture / Unknown 02/12/2024 12:47 PM EDT 02/12/2024 12:47 PM EDT Missy Murillo MD LAB BLOOD ORDERABLES Performing Organization Address [facility] Co de Phone Number LABORATORY [facility] [address] [place] [address] * (ABNORMAL) COMPREHENSIVE METABOLIC PANEL (02/12/2024 12:47 PM EDT) Pathologist [facility] BUN 16 6 - 20 mg/dL 02/12/2024 1:58 PM EDT [facility] 56 Creatinine 0.8 0.5 - 1.0 mg/dL 02/12/2024 1:58 PM EDT [facility] 56 Estimated Glomerular Filtration Rate 77 >=60 mL/min 02/12/2024 1:58 PM EDT [facility] 56 Comment:eGFR is calculated b ased on the CKD-EPI 2020 equation Sodium 128(L) 135 - 146 mmol/L 02/12/2024 1:58 PM EDT [facility] 56- Potassium 4.7 3.5 - 5.1 mmol/L 02/12/2024 1:58 PM EDT [facility] 56- Chloride 88(L) 98 - 107 mmol/L 02/12/2024 1:58 PM EDT [facility] 56- CO2 29 22 - 32 mmol/L 02/12/2024 1:58 PM EDT [facility] 56 Anion Gap 11 7 - 15 mmol/L 02/12/2024 1:58 PM EDT [facility] 56 Glucose 82 70 - 120 mg/dL 02/12/2024 1:58 PM EDT [facility] 56 Albumin 4.1 3.8 - 5.0 g/dL 02/12/2024 1:58 PM EDT [facility] [place] 56- AST 35 10 - 35 U/L 02/12/2024 1:58 PM EDT [facility] [place] 56- Alkaline Phosphatase 75 35 - 130 U/L 02/12/2024 1:58 PM EDT [facility] [place] 56 Bilirubin, Total 0.3 <=1.2 mg/dL 02/12/2024 1:58 PM EDT [facility] [place] 56 Calcium 9.6 8.4 - 10.2 mg/dL 02/12/2024 1:58 PM EDT [facility] [place] 56 Protein 6.5 6.0 - 8.3 g/dL 02/12/2024 1:58 PM EDT [facility] [place] 56 ALT 15 10 - 35 U/L 02/12/2024 1:58 PM EDT [facility] [id number] Blood Venous blood specimen / Unknown Venipuncture / Unknown 02/12/2024 12:47 PM EDT 02/12/2024 12:47 PM EDT Missy Murillo MD LAB BLOOD ORDERABLES [facility] 56[address] [place] [address] * LDL CHOLESTEROL (DIRECT MEASURE) (02/12/2024 12:47 PM EDT) LDL Cholesterol (Direct Measure) 73 <=129 mg/dL 02/12/2024 9:29 PM EDT [facility] Comment: LDL Cholesterol Reference Ranges (mg/dL): <70 Target level for high risk ASCVD patient <100 Optimal for general population 100-129 Near optimal for general population 130-159 Borderline high 160-189 High >=190 Very high Blood Venous blood specimen / Unknown Venipuncture / Unknown 02/12/2024 12:47 PM EDT 02/12/2024 12:47 PM EDT Missy Murillo MD LAB BLOOD ORDERABLES [facility] [address] [place] [address] documented in this encounter Visit Diagnoses Diagnosis Acute intractable tension-type headache- Primary Vestibular labyrinthitis, left SLE (systemic lupus erythematosus related syndrome) (HCC) Systemic lupus erythematosus SIADH (syndrome of inappropriate ADH production) (HCC) Other disorders of neurohypophysis Slow transit constipation Status post left hip replacement Hip joint replacement by other means Non-recurrent acute suppurative otitis media of left ear with spontaneous rupture of tympanic membrane Retinal artery occlusion Retinal vascular occlusion, unspecified Senile osteoporosis Raynaud's disease without gangrene Wax in ear Impacted cerumen Presence of stent in LAD coronary artery Postsurgical percutaneous transluminal coronary angioplasty status Orthostatic hypotension Neutropenia, unspecified type (HCC) Microcalcifications of the breast Mammographic microcalcification Leukopenia, unspecified type Immunocompromised state (HCC) Unspecified immunity deficiency History of stroke Transient ischemic attack (TIA), and cerebral infarction without residual deficits HTN, goal below 140/90 Unspecified essential hypertension TOVA (generalized anxiety disorder) Generalized anxiety disorder Encounter for long-term (current) use of medications Encounter for long-term (current) use of other medications Dyslipidemia, goal LDL below 70 Other and unspecified hyperlipidemia History of ST elevation myocardial infarction (STEMI) Old myocardial infarction 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, chronic (HCC) Chronic nonseasonal allergic rhinitis due to pollen Cachectic (HCC) Cachexia Acquired hypothyroidism Unspecified hypothyroidism documented in this encounter Advance Directives Latest Code Status on File Code Status Date Activated Date Inactivated Comments Full Code 12/11/2022 8:30 AM 12/11/2022 4:54 PM This order reflects the patients wishes and were consensually agreed upon. Question Answer Comments Discussion of Advance Directives occurred with: Patient Care Teams Farmer And Grazier Relationship Specialty Start Date End Date Missy Murillo MD [address] [facility] [place] [address] PCP - General Internal Medicine 12/27/23 documented as of this encounter
--- OUTSIDE RECORDS SUMMARY | 2024-02-21 01:29 | External Medical Summary | Summary of Care ---
Author Name Unknown Organization [facility] Address [address] [facility] [place] [address] Phone [phone] Care Team Providers Care Reading Efficiency Course Director Name Role Phone Missy Murillo MD Primary Care Provider [phone] Reason for Visit * Reason Comments eRx-Medication Refill Encounter Details Date Type Department Care Team (Late st Contact Info) Description 02/12/2024 Refill Cardiology, [facility] [address] [place] [address] Ryan Jean Baptiste, [address] [place] [address] Heart failure, systolic, due to CAD (HCC); HTN, goal below 140/90 Allergies Active Allergy Reactions Criticality Noted Date Comments Venlafaxine Hydrochloride Itching 06/22/2013 [place] Flavor Hives 04/24/2023 Sulfa Antibiotics Conjunctivitis 05/01/2000 Nonimmunologic sxs documented as of this encounter (statuses as of 02/13/2024) Medications Medication Sig Dispensed Refills Start Date End Date Status [facility] PROBIOTIC PO CAPS one capsule by mouth once daily 0 3 Active polyethylene glycol 3350 (MIRALAX) 255 gram powderIndications: Constipation Dissolve two capfuls in 8 oz of water or juice daily 3 Bottle 2 7 Active nitroglycerin (NITROSTAT) 0.[address] 1 Tablet under the tongue every 5 minutes as needed. 0 Active Aspirin 81 MG Oral Tablet Delayed Release TAKE 1 TABLET BY MOUTH EVERY DAY 90 Tab 2 0 Active Zinc 50 MG Oral Capsule Take 1 Capsule by mouth in the morning. 0 Active Restasis 0.05 % Ophthalmic Emulsion INSTILL 1 DROP INTO AFFECTED EYE EVERY 12 HOURS 0 1 Active Vitamin D (Cholecalciferol) 50 MCG (2000 UT) Oral Capsule Take by mouth . 0 Active Fluticasone Propionate 50 MCG/ACT Nasal Suspension (Flonase)Indicatio ns:Chronic sinusitis, unspecified location ADMINISTER 2 SPRAYS INTO EACH NOSTRIL DAILY. 48 mL 3 2 Active Clobetasol Propionate 0.05 % External Shampoo Apply to scalp when washing hair and rinse after 2-3 min 118 mL 5 2 Active Tacrolimus 0.1 % External Ointment (Protopic) Apply topically to affected area 2 times a day . Apply to spots on face twice daily 60 g 5 2 Active Clobetasol Propionate 0.05 % External Cream (Temovate)Indicati ons:SLE (systemic lupus erythematosus related syndrome) (HCC) APPLY TO LUPUS ON THE BODY TWICE DAILY NEEDED FOR FLARES. 60 g 1 2 Active Docusate Sodium 100 MG Oral Capsule (Colace) TAKE 1 SOFTGEL TWICE A DAY Strength: 100 mg 180 Capsule 2 2 Active Levothyroxine Sodium 112 MCG Oral Tablet (Synthroid)Indicat ions:Acquired hypothyroidism Take 1 Tablet by mouth daily first thing in the morning. (at least 30 min prior to breakfast or other meds) REZA brand name Synthroid 90 Tablet 3 3 Active [facility] Senna 8.6 MG Oral Tablet TAKE 1 TABLET BY ORAL ROUTE 2 TIMES EVERY DAY NEEDED FOR CONSTIPATION NEEDED 0 3 Active Multi-Vitamin Oral Tablet Take 1 Tablet by mouth. 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 135 Tablet 1 3 Active Hydroxychloroquine Sulfate 200 MG Oral Tablet (Plaquenil) Take 1 tablet by mouth every day at bedtime 90 Tablet 1 3 Active Lisinopril 2.5 MG Oral Tablet (Prinivil)Indicati ons:HTN, goal below 140/90 TAKE 1 TABLET BY MOUTH EVERY DAY 90 Tablet 3 3 Active Ofloxacin 0.3 % Otic Solution (Floxin) 5 Drops as needed (for ear wax, per ENT). 0 Active Mupirocin 2 % External Ointment (Bactroban) Apply topically to affected area 3 times a day. As directed. 15 g 1 3 Active Cetirizine HCl 10 MG Oral Tablet (ZyrTEC Allergy)Indication s:Chronic nonseasonal allergic rhinitis due to pollen Take 1 Tablet by mouth daily as needed for Rhinitis. 0 4 Active Atorvastatin Calcium 80 MG Oral Tablet (Lipitor)Indicatio ns:Presence of stent in LAD coronary artery,Dyslipidemi a, goal LDL below 70,Retinal artery occlusion,History of CVA with residual deficit Take 1 Tablet by mouth in the morning. Inc 11/22/2023. 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 If BP still low on 01/19 hold until directed. 0 4 Active Azelastine HCl 0.1 % Nasal Solution (Astelin)Indicatio ns:Chronic frontal sinusitis Administer 1 [place] into nostril in the morning and 1 [place] before bedtime. 30 mL 12 4 Active Meclizine HCl 12.5 MG Oral Tablet (Antivert)Indicati ons:Vertigo Take 1 Tablet by mouth 3 times a day as needed for Dizziness. 40 Tablet 1 4 Active traMADol HCl 50 MG Oral Tablet (Ultram)Indication s:Non-recurrent acute suppurative otitis media of left ear with spontaneous rupture of tympanic membrane Take 1 Tablet by mouth at bedtime as needed for Pain, Moderate or Pain, Severe. 20 Tablet 0 4 Active Metoprolol Succinate ER 25 MG Oral Tablet Extended Release 24 Hour (toPROL XL)Indications:Hea rt failure, systolic, due to CAD (HCC),HTN, goal below 140/90 TAKE 1 TABLET BY MOUTH EVERY DAY IN THE MORNING 90 Tablet 3 4 Active Metoprolol Succinate ER 25 MG Oral Tablet Extended Release 24 Hour (toPROL XL)Indications:Hea rt failure, systolic, due to CAD (HCC),HTN, goal below 140/90 Take 1 Tablet by mouth in the morning. 90 Tablet 3 3 02/13/20 24 Discontinued Hospital, Clinic, or Other Facility Administered Medication Ordered Dose Route Frequency Start Date End Date Status denosumab (PROLIA) subcut inj 60 mgIndications:Senile osteoporosis 60 mg SC [id number] 04/15/2020 Active documented as of this encounter [...] followed by [facility] [place] [facility] History of stroke Overview: small lacunae in Rt basal ganaglia unknown duration documented as of this encounter (statuses as of 02/13/2024) Resolved Problems Problem Noted Date Diagnosed Date Resolved Date Generalized edema 06/06/2021 11/22/2023 Heart failure, systolic, due to CAD 07/23/2017 06/27/2018 Chest pain 06/30/2014 08/08/2015 Atrial thrombosis 06/16/2012 07/15/2012 Anticoagulation management encounter 06/02/2012 06/02/2012 correction current use of ant icoagulant therapy 06/02/2012 06/02/2012 Overview: ICD-10 update of inactive term Heart failure due to valvular disease 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) 08/29/2023 Covid-19, Mrna, Lnp-s, Pf, B ivalent, 30 Mcg, IM, 12 yrs and above ([employer]) 08/31/2022 HepA Inact/HepB Recomb>=18yrs old 03/22/2022,,09/07/2021 PPD [...] on file documented as of this encounter Miscellaneous Notes * Telephone Encounter - Arielle Lawton CRNP - 02/13/2024 9:53 AM EDT Signed Prescriptions: Disp Refills Metoprolol Succinate ER 25 MG Oral Tablet *90 Tab*3 Sig: TAKE 1 TABLET BY MOUTH EVERY DAY IN THE MORNING Authorizing Provider: ARIELLE LAWTON * Telephone Encounter - Rosita Posadas CMA - 02/13/2024 9:40 AM EDTPending Prescriptions: Disp Refills Metoprolol Succinate ER 25 MG Oral Tablet *90 Tab*3 Sig: TAKE 1 TABLET BY MOUTH EVERY DAY IN THE MORNING * Telephone Encounter - Rosita Posadas CMA - 02/13/2024 9:39 AM EDT Did you pend patient's preferred pharmacy and medication before forwarding?yes Pharmacy: [id number] [address] [facility] Pending Prescriptions: Disp Refills Metoprolol Succinate ER 25 MG Oral Tablet*90 Tab*3 Sig: TAKE 1 TABLET BY MOUTH EVERY DAY IN THE MORNING Last Visit: 07/25/2023 (in office), Visit date not found (telemedicine) Next Visit: 04/14/2024 If no future appointments scheduled, and last appointment is greater than a year ago, please schedule patient for a follow-up appointment Last date the medication was ordered: 02-11-2023 Is this request for a controlled substance?No Urine Drug Screen:No results found. However, due to the size of the patient record, not all encounters were searched. Please check Results Review for a complete set of results. Patient Phone Numbers Labs: Lab Results Component Value Date/Time CREAT 0.8 02/12/2024 12:47 PM CREAT 0.72 07/24/2022 12:00 AM CREAT 0.9 09/29/2020 07:35 AM CREAT 0.8 08/04/1996 10:50 AM POTASSIUM 4.7 02/12/2024 12:47 PM POTASSIUM 4.5 07/24/2022 12:00 AM POTASSIUM 5.1 09/29/2020 07:35 AM TSH 1.54 02/12/2024 12:47 PM TSH 1.88 09/29/2020 07:35 AM TSH 8.10 (H) 08/04/1996 10:50 AM LDLCALC 79 09/30/2023 07:35 AM LDLCALC 64 09/29/2020 07:35 AM LDLDIRECT 73 02/12/2024 12:47 PM LDLDIRECT NOT APPLICABLE 09/29/2020 07:35 AM LDLDIRECT 95 02/03/2015 09:32 AM ALT 15 02/12/2024 12:47 PM ALT 21 09/29/2020 07:35 AM documented in this encounter Plan of Treatment Upcoming Encounters Date Type Department Care Team (Late st Contact Info) Description 02/21/2024 11:45 AM EDT Office Visit Otolaryngology [facility] [address] [place] [address] Dc Diamond DO [address] [place] [address] 03/06/2024 11:20 AM EDT Office Visit Dermatology [facility] [address] [place] [address] Dina Pearson PA-C 200 [facility] [place] [phone] 03/10/2024 9:40 AM EDT Office Visit General Internal Medicine [facility] [address] [place] [address] Missy Murillo MD [address] [facility] [place] [address] 04/14/2024 1:30 PM EDT Office Visit Cardiology, [facility] [address] [place] [address] Ryan Jean Baptiste, [address] [place] [address] 05/28/2024 11:40 AM EDT Office Visit Otolaryngology [facility] [address] [place] [address] Lelo Wynn PA-C [address] [place] [address] 06/22/2024 8:30 AM EDT Office Visit Rheumatology [facility] [address] [place] [address] Stuart Pineda CRNP [address] [place], [place] [address] Health Maintenance Due Date Last Done Comments [...] D LEVEL ONCE IN A LIFETIME-USE SMARTSET# 90800 Completed 09/30/2023, 08/31/2022, 11/09/2020, Additional history exists Cologuard Discontinued GARDASIL-HPV IMMUNIZATION SERIES Aged Out No longer eligible based on patient's age to complete this topic MENINGOCOCCAL (MENACTRA/MENVEO) Aged Out No longer eligible based on patient's age to complete this topic Sigmoidoscopy Discontinued documented as of this encounter Medical Devices Not on filedocumented as of this encounter Visit Diagnoses Diagnosis Heart failure, systolic, due to CAD (HCC) Unspecified systolic heart failure HTN, goal below 140/90 Unspecified essential hypertension documented in this encounter Advance Directives Latest Code Status on File Code Status Date Activated Date Inactivated Comments Full Code 12/11/2022 8:30 AM 12/11/2022 4:54 PM This order reflects the patients wishes and were consensually agreed upon. Question Answer Comments Discussion of Advance Directives occurred with: Patient Care Teams Reading Efficiency Course Director Relationship Specialty Start Date End Date Missy Murillo MD [address] [facility] [place] [address] PCP - General Internal Medicine 12/27/23 documented as of this encounter
--- OUTSIDE RECORDS SUMMARY | 2024-02-21 01:29 | External Medical Summary ---
Author Name Unknown Address Unknown Organization K09:[facility] [address] [place] [address] Laboratory Report Ordering Provider Test Date Status DARRIUS MARTINEZ 02/12/2024 12:47:18 Final Observation Date Value Abnormality Reference (Units ) Status BUN 02/12/2024 12:47:18 16 6-20 (mg/dL) Final Creatinine 02/12/2024 12:47:18 0.8 0.5-1.0 (mg/dL) Final Glomerular filtration rate/1.73 sq M.predicted [Volume Rate/Area] in Serum, Plasma or Blood by Creatinine-based formula (CKD-EPI) 02/12/2024 12:47:18 77 >=60 (mL/min) Final eGFR is calculated based on the CKD-EPI 2020 equation Sodium 02/12/2024 12:47:18 128 Below low normal 135 -146 (mmol/L) Final Potassium 02/12/2024 12:47:18 4.7 3.5-5.1 (m mol/L) Final Cl 02/12/2024 12:47:18 88 Below low normal 98- 107 (mmol/L) Final CO2 02/12/2024 12:47:18 29 22-32 (mmo l/L) Final Anion gap 02/12/2024 12:47:18 11 7-15 (mmol /L) Final Glucose 02/12/2024 12:47:18 82 70-120 (mg /dL) Final Albumin 02/12/2024 12:47:18 4.1 3.8-5.0 (g /dL) Final AST (Aspartate aminotransferase) 02/12/2024 12:47:18 35 10-35 (U/L) Fin al Alk Phos 02/12/2024 12:47:18 75 35-130 (U/ L) Final Bilirubin, Total 02/12/2024 12:47:18 0.3 <=1 .2 (mg/dL) Final Calcium 02/12/2024 12:47:18 9.6 8.4-10.2 ( mg/dL) Final Protein 02/12/2024 12:47:18 6.5 6.0-8.3 (g /dL) Final ALT (Alanine aminotransferase) 02/12/2024 12:47:18 15 10-35 (U/L) Geo shabazz Performing Location [facility] [address] [place] [address]
--- OUTSIDE RECORDS SUMMARY | 2024-02-21 01:29 | External Medical Summary ---
Author Name Unknown Address Unknown Organization K09:[facility] [place] [address] Laboratory Report Ordering Provider Test Date Status DARRIUS MARTINEZ 02/12/2024 12:47:18 Final Observation Date Value Abnormality Reference (Units ) Status SYNC LEUKOCYTES IN BLOOD BY AUTOMATED COUNT 02/12/2024 12:47:18 3.05 Below low normal 4.00-10.80 (K/uL) Final Segs 02/12/2024 12:47:18 72.5 40.0-75.0 (%) Final Lymphs % 02/12/2024 12:47:18 11.5 Below low normal 18.0-42.0 (%) Final Monos 02/12/2024 12:47:18 15.4 Above high normal 1.0-11.0 (%) Final Eosinophils 02/12/2024 12:47:18 0.3 0.0-6.0 (%) Final Basos 02/12/2024 12:47:18 0.3 0.0-2.0 (%) Final Absolute Segs 02/12/2024 12:47:18 2.21 1.80-7.70 (K/uL) Final Lymphs, absolute 02/12/2024 12:47:18 0.35 Below low normal 1.00-4.80 (K/ul) Final Monos, Abs 02/12/2024 12:47:18 0.47 0.00-1.10 (K/uL) Final Eos, Abs 02/12/2024 12:47:18 0.01 0.00-0.70 (K/uL) Final Basos, Abs 02/12/2024 12:47:18 0.01 0.00-0.20 (K/uL) Final Performing Location [facility] [place] [address]
--- OUTSIDE RECORDS SUMMARY | 2024-02-21 01:30 | External Medical Summary ---
Author Name Unknown Address Unknown Organization K01:[facility] [place] [address] [place] [address] Laboratory Report Ordering Provider Test Date Status MICHELLEMARIBELLCOCO 02/12/2024 12:47:18 Final Observation Date Value Abnormality Reference (Units ) Status Erythrocyte sedimentation rate by Photometric method 02/12/2024 12:47:18 41 Above high normal <30 (mm/hour) Final Performing Location [facility] - [address] [place] [address]
--- OUTSIDE RECORDS SUMMARY | 2024-02-21 01:30 | External Medical Summary ---
Author Name Unknown Address Unknown Organization K09:[facility] [place] [address] Laboratory Report Ordering Provider Test Date Status DARRIUS MARTINEZ 02/12/2024 12:47:18 Final Observation Date Value Abnormality Reference (Units ) Status WBC, Total 02/12/2024 12:47:18 3.05 Below low normal 4. 00-10.80 (K/uL) Final RBC 02/12/2024 12:47:18 4.00 3.85-5.15 (M/uL) Final Hemoglobin 02/12/2024 12:47:18 11.3 Below low normal 12 .0-15.3 (g/dL) Final HCT 02/12/2024 12:47:18 33.9 Below low normal 36. 0-45.2 (%) Final MCV 02/12/2024 12:47:18 84.8 81.5-97.5 (fL) Final MCH 02/12/2024 12:47:18 28.3 27.0-34.0 (pg) Final MCHC 02/12/2024 12:47:18 33.3 32.0-36.0 (g/dL) Final RDW 02/12/2024 12:47:18 14.5 11.5-15.5 (%) Final Platelets 02/12/2024 12:47:18 342 140-400 (K /uL) Final MPV 02/12/2024 12:47:18 8.8 6.6-11.1 ( fL) Final Performing Location [facility] [place] [address]
--- OUTSIDE RECORDS SUMMARY | 2024-02-21 01:30 | External Medical Summary | Summary of Care ---
Author Name Unknown Organization [facility] Address [address] [facility] [place] [address] Phone [phone] Care Team Providers Care Cardiovascular Radiologic Technologist Name Role Phone Missy Murillo MD Primary Care Provider [phone] Reason for Visit * Reason Onset Date Comments Medication Refill 01/13/2024 Encounter Details Date Type Department Care Team (Late st Contact Info) Description 12/31/2023 Refill Dermatology [facility] [place] [address] [place] [address] Dina Brooks PA-C [address] [place] [phone] Allergies Active Allergy Reactions Criticality Noted Date Comments Venlafaxine Hydrochloride Itching 06/22/2013 [place] Flavor Hives 04/24/2023 Sulfa Antibiotics Conjunctivitis 05/01/2000 Nonimmunologic sxs documented as of this encounter (statuses as of 01/28/2024) Medications Medication Sig Dispensed Refills Start Date [...] 100 mg 180 Capsule 2 2 Active Metoprolol Succinate ER 25 MG Oral Tablet Extended Release 24 Hour (toPROL XL)Indications:Hea rt failure, systolic, due to CAD (HCC),HTN, goal below 140/90 Take 1 Tablet by mouth in the morning. 90 Tablet 3 3 Active Levothyroxine Sodium 112 MCG Oral Tablet [...] EVERY DAY 90 Tablet 3 4 Active traMADol HCl 50 MG Oral Tablet (Ultram)Indication s:Non-recurrent acute suppurative otitis media of left ear with spontaneous rupture of tympanic membrane Take 1 Tablet by mouth 2 times a day as needed for Pain, Moderate or Pain, Severe. 20 Tablet 0 4 Active Fluconazole 150 MG Oral Tablet (Diflucan)Indicati ons:Candidal vulvovaginitis Take 1 pill Today and repeat in 2 weeks 2 Tablet 0 4 Active amLODIPine Besylate 2.5 MG Oral Tablet (Norvasc)Indicatio ns:HTN, goal below 140/90 TAKE 1 TABLET BY MOUTH EVERY DAY 90 Tablet 3 4 01/15/20 24 Discontinued Cephalexin 500 MG Oral CapsuleIndications :Non-recurrent acute suppurative otitis media of left ear with spontaneous rupture of tympanic membrane Take 1 Capsule by mouth in the morning and 1 Capsule at noon and 1 Capsule before bedtime. Do all this for 10 days. 30 Capsule 0 4 01/06/20 24 Hospital, Clinic, or Other Facility Administered Medication Ordered Dose Route Frequency Start Date End Date Status denosumab (PROLIA) subcut inj 60 mgIndications:Senile osteoporosis 60 mg SC [id number] 04/15/2020 Active documented as of this encounter (statuses as of 01/28/2024) Active Problems Problem Noted Date Diagnosed Date [...] followed by [facility] [place] [facility] History of stroke Overview: small lacunae in Rt basal ganaglia unknown duration documented as of this encounter (statuses as of 01/28/2024) Resolved Problems Problem Noted Date Diagnosed Date Resolved Date Generalized edema 06/06/2021 11/22/2023 Heart failure, systolic, due to CAD 07/23/2017 06/27/2018 Chest pain 06/30/2014 08/08/2015 Atrial thrombosis 06/16/2012 07/15/2012 Anticoagulation management encounter 06/02/2012 06/02/2012 shelter current use of ant icoagulant therapy 06/02/2012 06/02/2012 Overview: ICD-10 update of inactive term Heart failure due to valvular disease 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 06/02/2012 [...] as of this encounter (statuses as of 01/28/2024) Immunizations Name Administration Dates Next Due COVID-19 mRNA, LNP-s, No Pre serve, 2-Dose Series ([employer]) 08/10/2021,02/21/2021,01/31/2021 COVID-19, LNP-s, No Preserve , Brennan-sucrose, Ages 12+ ([employer]) 04/27/2022 COVID-19, MRNA-LNP, 23-24, P F, 30 MCG/0.3 mL, 12 YRS AND ABOVE, IM ([employer]) 08/29/2023 Covid-19, Mrna, Lnp-s, Pf, B ivalent, [...] encounter Miscellaneous Notes * Telephone Encounter - Kylie Ryan LPN - 01/13/2024 2:46 PM EST Left message for patient to return call to see if medication is needed. * Telephone Encounter - Dina Brooks PA-C - 12/31/2023 3:51 PM EST She shouldn't be due for refill until February, can you call and see if she needs it early for some reason * Telephone Encounter - Dina Brooks PA-C - 12/31/2023 3:51 PM EST Refused Prescriptions: Disp Refills Hydroxychloroquine Sulfate 200 MG Oral Tab*90 Tab*1 Sig: Take 1 tablet by mouth every day at bedtime Refused By: DINA BROOKS Reason for Refusal: Too soon documented in this encounter Plan of Treatment Upcoming Encounters Date Type Department Care Team (Late st Contact Info) Description 02/08/2024 1:45 PM EDT Imaging Radiology [address] [place] [address] 02/12/2024 12:00 PM EDT Office Visit General Internal Medicine [facility] [address] [place] [address] Missy Murillo MD [address] [facility] [place] [address] 02/20/2024 7:00 AM EDT Laboratory Laboratory [facility] [address] [place] [phone] [place] [address] [place] [address] 02/21/2024 9:30 AM EDT Office [facility] [place] [address] Dc Diamond, 132 [facility] [place] [address] 03/06/2024 11:20 AM EDT Office Visit Dermatology [facility] [address] [place] [address] Dina Brooks PA-C 200 [facility] [place] [phone] 03/10/2024 9:40 AM EDT Office Visit General Internal Medicine [facility] [address] [place] [address] Missy Murillo MD [address] [facility] [place] [address] 04/14/2024 1:30 PM EDT Office Visit Cardiology, [facility] [address] [place] [address] Ryan Jean Baptiste, DO [address] [place] [address] 05/28/2024 11:40 AM EDT Office Visit Otolaryngology [facility] [address] [place] [address] Lelo Wynn PA-C [address] [place] [address] 06/22/2024 8:30 AM EDT Office Visit Rheumatology [facility] [address] [place] [address] Stuart Pineda CRNP [address] [place] [address] Health Maintenance Due Date Last Done Comments Depression Screening 04/02/2024 04/02/2023 GFR 09/30/2024 09/30/2023, 06/0 06/2023, 01/16/2023, Additional history exists TSH 09/30/2024 09/30/2023, 05/0 06/2023, 02/25/2023, Additional history exists DXA Scan [...] D LEVEL ONCE IN A LIFETIME-USE SMARTSET# [id number] Completed 09/30/2023, 08/31/2022, 11/09/2020, Additional history exists Cologuard Discontinued GARDASIL-HPV IMMUNIZATION SERIES Aged Out No longer eligible based on patient's age to complete this topic MENINGOCOCCAL (MENACTRA/MENVEO) Aged Out No longer eligible based on patient's age to complete this topic Sigmoidoscopy Discontinued documented as of this encounter Medical Devices Not on filedocumented as of this encounter Advance Directives Latest Code Status on File Code Status Date Activated Date Inactivated Comments Full Code 12/11/2022 8:30 AM 12/11/2022 4:54 PM This order reflects the patients wishes and were consensually agreed upon. Question Answer Comments Discussion of Advance Directives occurred with: Patient Care Teams Cardiovascular Radiologic Technologist Relationship Specialty Start Date End Date Missy Murillo MD [address] [place] [address] PCP - General Internal Medicine 12/27/23 documented as of this encounter
--- OUTSIDE RECORDS SUMMARY | 2024-02-21 01:30 | External Medical Summary ---
Author Name Unknown Address Unknown Organization K01:[facility] [place] [address] [place] [address] Laboratory Report Ordering Provider Test Date Status MICHELLEMARIBELLCOCO 02/12/2024 12:47:18 Final Observation Date Value Abnormality Reference (Units ) Status TSH 02/12/2024 12:47:18 1.54 0.27-4.20 (uIU/mL) Final Performing Location [facility] - [address] [place] [address]
--- OUTSIDE RECORDS SUMMARY | 2024-02-21 01:30 | External Medical Summary | Summary of Care ---
Author Name Unknown Organization [facility] Address [address] [facility] [place] [address] Phone [phone] Care Team Providers Care Civil Design Technician Name Role Phone Missy Murillo MD Primary Care Provider Reason for Referral * Evaluate & Treat - Unlimited Visits (Within 10 days (routine)) - Pending Review Specialty Diagnoses / Procedures Referred By Mario carrera Referred To Contact Physical Therapy / Physical Medicine And Rehab Diagnoses Vertigo Missy Murillo MD [address] [place] [address] Referral ID Status Reason Start Date Expiration Date Visits Requested Visits Authorized [id number] Pending Review Specialty Services Required 01/22/[phone] Question Answer Referral Priority Within 10 days (routine) [facility] should this [facility] be scheduled[facility] Left peripheral vestibular hypofunction / supervised vestibular compensation exercises" Reason for Visit * Reason Onset Date Comments Advice 01/22/2024 Returning Call 01/22/2024 Encounter Details Date Type Department Care Team (Late st Contact Info) Description 01/22/2024 Telephone General Internal Medicine [place] Giovanni Moon [address] [place] [address] Missy Murillo MD [address] [place] [address] Advice; Returning Call Allergies Active Allergy Reactions Criticality Noted Date Comments Venlafaxine Hydrochloride Itching 06/22/2013 [place] Flavor Hives 04/24/2023 Sulfa Antibiotics Conjunctivitis 05/01/2000 Nonimmunologic sxs documented as of this encounter (statuses as of 02/06/2024) Medications Medication Sig Dispensed Refills Start Date [...] 01/12/2021 Active Vitamin D (Cholecalciferol) 50 MCG (1999 UT) Oral Capsule Take by mouth . [...] (Temovate)Indication s:SLE (systemic lupus erythematosus related syndrome) ([facility] [...] (toPROL XL)Indications:Heart failure, systolic, due to CAD ([facility]),HTN, goal below 140/90 Take 1 Tablet by [...] EVERY DAY 90 Tablet 3 12/09/2023 Active traMADol HCl 50 MG Oral Tablet (Ultram)Indications: Non-recurrent acute suppurative otitis media of left ear with spontaneous rupture of tympanic membrane Take 1 Tablet by mouth 2 times a day as needed for Pain, Moderate or Pain, Severe. 20 Tablet 0 12/27/2023 Active Fluconazole 150 MG Oral Tablet (Diflucan)Indication s:Candidal vulvovaginitis Take 1 pill Today and repeat in 2 weeks 2 Tablet 0 12/27/2023 Active amLODIPine Besylate 2.5 MG Oral Tablet (Norvasc)Indications :HTN, goal below 140/90 Take 0.5 Tablets by mouth in the morning. If BP still low on 01/19 hold until directed. 0 01/15/2024 Active predniSONE 10 MG Oral Tablet (Deltasone)Indicatio ns:Vertigo,Chronic frontal sinusitis Take 4 tabs for 3 days, 3 tabs for 3 days, 2 tabs for 2 days 1 tab for 2 days 30 Tablet 0 01/15/2024 Active Azelastine HCl 0.1 % Nasal Solution (Astelin)Indications :Chronic frontal sinusitis Administer 1 Alcoa into nostril in the morning and 1 [place] before bedtime. 30 mL 12 01/15/2024 Active Meclizine HCl 12.5 MG Oral Tablet (Antivert)Indication s:Vertigo Take 1 Tablet by mouth 3 times a day as needed for Dizziness. 40 Tablet 1 01/15/2024 Active Hospital, Clinic, or Other Facility Administered Medication Ordered Dose Route Frequency Start Date End Date Status denosumab (PROLIA) subcut inj 60 mgIndications:Senile osteoporosis 60 mg SC [id number] 04/15/2020 Active documented as of this encounter (statuses as of 02/06/2024) Active Problems Problem Noted Date Diagnosed Date [...] followed by [facility] History of stroke Overview: small lacunae in Rt basal ganaglia unknown duration documented as of this encounter (statuses as of 02/06/2024) Resolved Problems Problem Noted Date Diagnosed Date Resolved Date Generalized edema 06/06/2021 11/22/2023 Heart failure, systolic, due to CAD 07/23/2017 06/27/2018 Chest pain 06/30/2014 08/08/2015 Atrial thrombosis 06/16/2012 07/15/2012 Anticoagulation management encounter 06/02/2012 06/02/2012 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 06/02/2012 06/02/2012 Overview: ICD-10 update of inactive term Heart failure due to valvular disease 06/02/2012 06/02/2012 custodial current use of ant icoagulant therapy 06/02/2012 [...] as of this encounter (statuses as of 02/06/2024) Immunizations Name Administration Dates Next Due COVID-19 mRNA, LNP-s, No Pre serve, 2-Dose Series ([employer]) 08/10/2021,02/21/2021,01/31/2021 COVID-19, LNP-s, No Preserve , Brennan-sucrose, Ages 12+ (AutoESL) 04/27/2022 COVID-19, MRNA-LNP, 23-24, P F, 30 MCG/0.3 mL, 12 YRS AND ABOVE, IM (PFIZER-Comirnaty) 08/29/2023 Covid-19, Mrna, Lnp-s, Pf, B ivalent, 30 Mcg, IM, 12 yrs and above (AutoESL) 08/31/2022 HepA Inact/HepB Recomb>=18yrs old 03/22/2022,,09/07/2021 PPD [...] encounter Miscellaneous Notes * Telephone Encounter - Gregorio Pinzon OSA - 02/06/2024 8:28 AM EDT Faxed 02/05 * Telephone Encounter - Missy Murillo MD - 02/05/2024 4:06 PM EDT Scheduling please help . It seems no one has contacted her regarding PT * Telephone Encounter - Mariam Hunt LPN - 01/23/2024 12:06 PM EST Patient is aware and verbalizes understanding. Patient would like to schedule with [facility] for PT. Please assist with scheduling. * Telephone Encounter - Liliana Urena OSA - 01/23/2024 11:59 AM EST Reason for patient's call: Returning Call Caller was transferred to Mariam :Ashley at the nurse line. * Telephone Encounter - Lucy Das LPN - 01/22/2024 1:23 PM EST Left message for patient to call back regarding message below. * Telephone Encounter - Missy Murillo MD - 01/22/2024 1:03 PM EST Reviewed message from [facility] - needs PT - ordered to be done at [facility] or [facility] or [facility] . Please call her and help with appoint . PT ordered Also echo ordered by Dr Ziegler reviewed - Slight worsening of mitral valve leaking with enlarged left upper part of heart . No change in current medication * Telephone Encounter - Missy Murillo MD - 01/22/2024 1:03 PM EST ----- Message from Roselyn Hall, PT sent at 01/22/2024 12:26 PM EST ----- Regarding: requesting PT referral Hello. Mayer was seen today in the [facility] for her vertigo and imbalance. Exam was suggestive of an acute left peripheral vestibular hypofunction. She was also found to have a significant decline in her speech discrimination scores on the left compared to an audiogram completed on 11/15/24. Our ENT doctor (Dr. Lujan) has ordered an MRI of IACs to rule out a mass. If imaging is negative for a mass, patient may have left labyrinthitis. Patient is very unsteady on her feet and is not safe for an independent home based exercise program. She is interested in out-patient therapy at either [facility] or [facility] or [facility]. Can you please write a referral for out-patient physical therapy for: "Left peripheral vestibular hypofunction / supervised vestibular compensation exercises" I will be sending you a full [facility] Assessment report Thank you, PROMISE Maravilla [facility] Otolaryngology [facility] Vest[facility] Rehabilitation documented in this encounter Plan of Treatment Upcoming Encounters Date Type Department Care Team (Late st Contact Info) Description 02/08/2024 1:45 PM EDT Imaging Radiology [address] [place] [address] 02/12/2024 12:00 PM EDT Office Visit General Internal Medicine [facility] [address] [place] [address] Missy Murillo MD 200 [facility] [place] [address] 02/20/2024 7:00 AM EDT Laboratory Laboratory [facility] [address] [place] [phone] [facility] [address] [facility] [place] [address] 02/21/2024 9:30 AM EDT Office Visit Otolaryngology [facility] [address] [place] [address] Dc Diamond DO [address] [place] [address] 03/06/2024 11:20 AM EDT Office Visit Dermatology [facility] [address] [place] [address] Dina Pearson PA-C [address] [facility] [place] [phone] 03/10/2024 9:40 AM EDT Office Visit General Internal Medicine [facility] [address] [place] [address] Missy Murillo MD [address] [facility] [place] [address] 04/14/2024 1:30 PM EDT Office Visit Cardiology, [facility] [address] [place] [address] Ryan Jean Baptiste DO [address] [place] [address] 05/28/2024 11:40 AM EDT Office Visit Otolaryngology [facility] [address] [place] [address] Lelo Wynn PA-C [address] [place] [address] 06/22/2024 8:30 AM EDT Office Visit Rheumatology [place] [phone] [facility] [place] [address] Stuart Pineda CRNP [facility] [place] [address] Scheduled Referrals Name Type Priority Associated Diagnoses Orde r Schedule PHYSICAL THERAPY REFERRAL OP Referral Within 10 days (routine) Vertigo Ordered: 01/22/2024 Health Maintenance Due Date Last Done Comments [...] D LEVEL ONCE IN A LIFETIME-USE SMARTSET# [id number] Completed 09/30/2023, 08/31/2022, 11/09/2020, Additional history exists Cologuard Discontinued GARDASIL-HPV IMMUNIZATION SERIES Aged Out No longer eligible based on patient's age to complete this topic MENINGOCOCCAL (MENACTRA/MENVEO) Aged Out No longer eligible based on patient's age to complete this topic Sigmoidoscopy Discontinued documented as of this encounter Medical Devices Not on filedocumented as of this encounter Visit Diagnoses Diagnosis Vertigo- Primary Dizziness and giddiness documented in this encounter Advance Directives Latest Code Status on File Code Status Date Activated Date Inactivated Comments Full Code 12/11/2022 8:30 AM 12/11/2022 4:54 PM This order reflects the patients wishes and were consensually agreed upon. Question Answer Comments Discussion of Advance Directives occurred with: Patient Care Teams Civil Design Technician Relationship Specialty Start Date End Date Missy Murillo MD [address] [place] [address] [place] [address] PCP - General Internal Medicine 12/27/23 documented as of this encounter
--- OUTSIDE RECORDS SUMMARY | 2024-02-21 01:30 | External Medical Summary ---
Author Name Unknown Address Unknown Organization K01:[facility] - [address] [place] [address] Laboratory Report Ordering Provider Test Date Status MICHELLEMARIBELLCOCO 02/12/2024 12:47:18 Final Observation Date Value Abnormality Reference (Units ) Status LDL, (direct) 02/12/2024 12:47:18 73 <=129 (mg/dL) Final LDL Cholesterol Reference Ra nges (mg/dL):
<70 Target level for high risk ASCVD patient
<100 Optimal for general population
100-129 Near optimal for general population
130-159 Borderline high
160-189 High
>=190 Very high Performing Location [facility] - [address] [place] [address]
--- OUTSIDE RECORDS SUMMARY | 2024-02-21 01:30 | External Medical Summary | Summary of Care ---
Author Name Unknown Organization [facility] Address [address] [place] [address] Phone [phone] Care Team Providers Care Homicide Squad Commanding Officer Name Role Phone Missy Murillo MD Primary Care Provider [phone] Reason for Visit * Reason Onset Date Comments Follow Up 02/04/2024 Encounter Details Date Type Department Care Team (Late st Contact Info) Description 02/04/2024 [facility] [address], [place] [phone] Roselyn Hall, PT [address], [place] [phone] Follow Up Allergies Active Allergy Reactions Criticality Noted Date Comments Venlafaxine Hydrochloride Itching 06/22/2013 [place] Flavor Hives 04/24/2023 Sulfa Antibiotics Conjunctivitis 05/01/2000 Nonimmunologic sxs documented as of this encounter (statuses as of 02/04/2024) Medications Medication Sig Dispensed Refills Start Date [...] (Temovate)Indication s:SLE (systemic lupus erythematosus related syndrome) ([facility]) APPLY TO LUPUS ON THE BODY TWICE DAILY NEEDED FOR FLARES. 60 g 1 06/04/2022 Active Docusate Sodium 100 MG Oral Capsule (Colace) TAKE 1 SOFTGEL TWICE A DAY Strength: 100 mg 180 Capsule 2 11/08/2022 Active Metoprolol Succinate ER 25 MG Oral Tablet Extended Release 24 Hour (toPROL XL)Indications:Heart failure, systolic, due to CAD ([facility]),HTN, goal below 140/90 Take 1 Tablet by [...] failure secondary to coronary artery disease, chronic ([facility]) Take 1 Tablet by mouth in the [...] the morning. If BP still low on 3/ hold until directed. 0 01/15/2024 Active predniSONE 10 MG Oral Tablet (Deltasone)Indicatio ns:Vertigo,Chronic frontal sinusitis Take 4 tabs for 3 days, 3 tabs for 3 days, 2 tabs for 2 days 1 tab for 2 days 30 Tablet 0 01/15/2024 Active Azelastine HCl 0.1 % Nasal Solution (Astelin)Indications :Chronic frontal sinusitis Administer 1 [place] into nostril in the morning and 1 [place] before bedtime. 30 mL 12 01/15/2024 Active Meclizine HCl 12.5 MG Oral Tablet (Antivert)Indication s:Vertigo Take 1 Tablet by mouth 3 times a day as needed for Dizziness. 40 Tablet 1 01/15/2024 Active Hospital, Clinic, or Other Facility Administered Medication Ordered Dose Route Frequency Start Date End Date Status denosumab (PROLIA) subcut inj 60 mgIndications:Senile osteoporosis 60 mg SC [id number] 04/15/2020 Active documented as of this encounter (statuses as of 02/04/2024) Active Problems Problem Noted Date Diagnosed Date [...] followed by [facility] [place] [facility] History of stroke Overview: small lacunae in Rt basal ganaglia unknown duration documented as of this encounter (statuses as of 02/04/2024) Resolved Problems Problem Noted Date Diagnosed Date Resolved Date Generalized edema 06/06/2021 11/22/2023 Heart failure, systolic, due to CAD 07/23/2017 06/27/2018 Chest pain 06/30/2014 08/08/2015 Atrial thrombosis 06/16/2012 07/15/2012 Anticoagulation management encounter 06/02/2012 06/02/2012 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 She reports she never received a call to start out-patient PT for a supervised vestibular compensation exercise program. Reported to her that her PCP placed PT ordersthe same day that I sent in the request. Patient reporting that her balance has improved. She stated that at this point she does not want to have out-patient therapy as she has "too much other stuff going on". Her MRI of IACs is scheduled for 02/09/24. Will contact patient after results are in. Madepatient aware that I will be out of town from 02/10-02/17 and will contact her when I am back. Patientcontinues to state that she wants to see her ENT and have him clean her ears. 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 She has an ENT appointment on 02/21/24. Roselyn Hall, MSPT [facility] Otolaryngology V[facility] Vest[facility] Rehabilitation documented in this encounter Plan of Treatment Upcoming Encounters Date Type Department Care Team (Late st Contact Info) Description 02/08/2024 1:45 PM EDT Imaging Radiology [facility] [address] [place] [address] 02/12/2024 12:00 PM EDT Office Visit General Internal Medicine [facility] [address] [place] [address] Missy Murillo MD [address] [address] [address] 02/20/2024 7:00 AM EDT Laboratory Laboratory [facility] [address] [phone] [facility] [address] [place] [place] [address] 02/21/2024 9:30 AM EDT Office Visit Otolaryngology [facility] [address] [place] [address] Dc Diamond, [address] [place] [address] 03/06/2024 11:20 AM EDT Office Visit Dermatology [facility] [address] [place] [address] Dina Pearson PA-C 200 [facility] [place] [phone] 03/10/2024 9:40 AM EDT Office Visit General Internal Medicine [facility] [address] [address] Missy Murillo MD [address] [address] 04/14/2024 1:30 PM EDT Office Visit Cardiology, [facility] 132 [facility] [place] [address] Ryan Jean Baptiste, DO [address] [place] [address] 05/28/2024 11:40 AM EDT Office Visit Otolaryngology [facility] [address] [place] [address] Lelo Wynn PA-C [address] [place] [address] 06/22/2024 8:30 AM EDT Office Visit Rheumatology [facility] [address] [place] [address] Stuart Pineda CRNP [address] [facility] [place] [address] Health Maintenance Due Date Last Done Comments Depression Screening 04/02/2024 04/02/2023 GFR 09/30/2024 09/30/2023, 06/2023, 01/16/2023, Additional history exists TSH 09/30/2024 09/30/2023, 06/2023, 02/25/2023, Additional history exists DXA Scan [...] D LEVEL ONCE IN A LIFETIME-USE SMARTSET# [id number] Completed 09/30/2023, 08/31/2022, 11/09/2020, Additional history exists [...] Advance Directives occurred with: Patient Care Teams Homicide Squad Commanding Officer Relationship Specialty Start Date End Date Missy Murillo MD [address] [place] [address] PCP - General Internal Medicine 12/27/23 documented as of this encounter
--- OUTSIDE RECORDS SUMMARY | 2024-02-21 01:31 | External Medical Summary | Summary of Care ---
Author Name Unknown Organization [facility] Address [address] [place] [address] Phone [phone] Care Team Providers Care Insulating Machine Operator Name Role Phone Missy Murillo MD Primary Care Provider [phone] Encounter Details Date Type Department Care Team (Latest Contact Info) Description 01/22/2024 10:00 AM EST Office Visit Audiology, [place] [address] [place], [place] [phone] Yung Best Au.D. [address] [place], [place] [phone] Bilateral sensorineural hearing loss* Allergies Active Allergy Reactions Criticality Noted Date Comments Venlafaxine Hydrochloride Itching 06/22/2013 [place] Flavor Hives 04/24/2023 Sulfa Antibiotics Conjunctivitis 05/01/2000 Nonimmunologic sxs documented as of this encounter (statuses as of 01/22/2024) Medications Medication Sig Dispensed Refills Start Date [...] (Temovate)Indication s:SLE (systemic lupus erythematosus related syndrome) ([facility]) APPLY TO LUPUS ON THE BODY TWICE [...] min prior to breakfast or other meds) ERZA brand name Synthroid 90 Tablet 3 06/11/2023 [...] 3/4 hold until directed. 0 01/15/2024 Active predniSONE 10 MG Oral Tablet (Deltasone)Indicatio ns:Vertigo,Chronic frontal sinusitis Take 4 tabs for 3 days, 3 tabs for 3 days, 2 tabs for 2 days 1 tab for 2 days 30 Tablet 0 01/15/2024 Active Azelastine HCl 0.1 % Nasal Solution (Astelin)Indications :Chronic frontal sinusitis Administer 1 [place] into nostril in the morning and 1 [place] before bedtime. 30 mL 12 01/15/2024 Active Meclizine HCl 12.5 MG Oral Tablet (Antivert)Indication s:Vertigo Take 1 Tablet by mouth 3 times a day as needed for Dizziness. 40 Tablet 1 01/15/2024 Active Hospital, Clinic, or Other Facility Administered Medication Ordered Dose Route Frequency Start Date End Date Status denosumab (PROLIA) subcut inj 60 mgIndications:Senile osteoporosis 60 mg SC [id number] 04/15/2020 Active documented as of this encounter (statuses as of 01/22/2024) Active Problems Problem Noted Date Diagnosed Date [...] followed by Dr [facility] [place] [facility] History of stroke Overview: small lacunae in Rt basal ganaglia unknown duration documented as of this encounter (statuses as of 01/22/2024) Resolved Problems Problem Noted Date Diagnosed Date Resolved Date Generalized edema 06/06/2021 11/22/2023 Heart failure, systolic, due to CAD 07/23/2017 06/27/2018 Chest pain 06/30/2014 08/08/2015 Atrial thrombosis 06/16/2012 07/15/2012 Anticoagulation management encounter 06/02/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 use of ant icoagulant therapy 06/02/2012 06/02/2012 Overview: ICD-10 update of inactive term Heart failure due to valvular disease 06/02/2012 06/02/2012 [facility] current use of ant icoagulant therapy 06/02/2012 [...] as of this encounter (statuses as of 01/22/2024) Immunizations Name Administration Dates Next Due COVID-19 mRNA, LNP-s, No Pre serve, 2-Dose Series ([employer]) 08/10/2021,02/21/2021,01/31/2021 COVID-19, LNP-s, No Preserve , Brennan-sucrose, Ages 12+ (Pfizer) 04/27/2022 COVID-19, MRNA-LNP, 23-24, P F, 30 MCG/0.3 mL, 12 YRS AND ABOVE, IM (PFIZER-Comirnat) 08/29/2023 Covid-19, Mrna, Lnp-s, Pf, B ivalent, 30 Mcg, IM, 12 yrs and above (Pfizer) 08/31/2022 HepA Inact/HepB Recomb>=18yrs old 03/22/2022,,09/07/2021 PPD 09/07/2009, 8,04/17/2005,03/01,10/08/2001 Pneumococcal Conjugate Vacc, 13 Valent (Prevnar) 08/08/2015 Pneumococcal Polysaccharide PPV23 (Pneumovax) 11/17/2012,10/16/2004 RSV Vac., Recomb, Adjuvant, PF,0.5 Ml (Arexvy) 09/02/2023 Season Influenza, Quad, PF, Adjuvanted, 65+ Yrs, IM (FLUAD) 08/10/2021 Seasonal Influenza, PF, 6 M & above, IM , (FluLaval or Fluzone) 07/14/2020,08/12/2018,09/02/2017 Seasonal Influenza, Quadriva lent Hd (Fluzone Hd) 09/07/2022 Seasonal Influenza, Quadriva lent, No Preserve, IM 08/29/2023,08/14/2016 Seasonal Influenza, Split, I IV3, With Preserve, Inj 08/08/2015,08/02/2014,08/13/2013,09/17,07/26/2011,09/06/2010,07/29/2009 ,08/30/2008,09/18/2007,09/10/2006,09/19,09/02/2003,09/14/2002 Seasonal Influenza, Trivalen t, Adjuvanted, 65+ yrs 08/18/2019 TD - Tetanus/Diptheria (ADULT) 07/22/2003 TDAP (age 10 and older)(Boostrix) 07/01/2020 TDAP [...] on file documented as of this encounter Progress Notes * Yung Best Au.D. - 01/22/2024 11:05 AM EST Images from the original note were not included. Audiologic evaluation was completed on referral from Otolaryngology clinic. Otoscopy Left: Revealed calcification of the tympanic membrane. It also showed possible moisture. Tympanometry 13102 Left: Flat with normal equivalent volume ("Type B") Standard audiometric testing 64077 ABSD supra-aural earphones Good reliability Right: Revealed a mild sloping down to moderately-severe (250-1000Hz), rising to moderate (2000-4000Hz), sloping to moderately-severe (6000-8000Hz) sensorineural hearing loss Left: Revealed a moderately-severe sloping down to severe sensorineural hearing loss, did note a mixed component at 4000Hz Note: asymmetry present in the pure tone thresholds and word recognition scores Speech recognition thresholds were consistent with hearing thresholds. Word recognition scores, obtained via recorded material were: right 88%, left 36% Shaji Ascencio, [facility] Hot Braider 01/22/2024 11:05 AM Scan: audiogram, tympanogram documented in this encounter Plan of Treatment Upcoming Encounters Date Type Department Care Team (Late st Contact Info) Description 02/12/2024 12:00 PM EDT Office Visit General Internal Medicine [facility] [address] [place] [address] Missy Murillo MD [address] [place] [address] 02/20/2024 7:00 AM EDT Laboratory Laboratory [facility] [place] [address] [place] [phone] [facility] 200 [facility] [place] [address] 03/06/2024 11:20 AM EDT Office Visit Dermatology [facility] [address] [place] [address] Dina Pearson PA-C 200 [facility] [place] [phone] 03/10/2024 9:40 AM EDT Office Visit General Internal Medicine [facility] [address] [place] [address] Missy Murillo MD [address] [facility] [place] [address] 04/14/2024 1:30 PM EDT Office Visit Cardiology, [facility] [address] [place] [address] Ryan Jean Baptiste DO [address] [place] [address] 05/28/2024 11:40 AM EDT Office Visit Otolaryngology [facility] [address] [place] [address] Lelo Wynn PA-C [address] [place] [address] 06/22/2024 8:30 AM EDT Office Visit Rheumatology [facility] [address] [place] [address] Stuart Pineda, TEOFILO [address] [place] [address] Health Maintenance Due Date Last Done Comments Depression Screening 04/02/2024 04/02/2023 GFR 09/30/2024 09/30/2023, 0 06/2023, 01/16/2023, Additional history exists TSH 09/30/2024 [...] D LEVEL ONCE IN A LIFETIME-USE SMARTSET# [id number] Completed 09/30/2023, 08/31/2022, 11/09/2020, Additional history exists Cologuard Discontinued GARDASIL-HPV IMMUNIZATION SERIES Aged Out No longer eligible based on patient's age to complete this topic MENINGOCOCCAL (MENACTRA/MENVEO) Aged Out No longer eligible based on patient's age to complete this topic Sigmoidoscopy Discontinued documented as of this encounter Medical Devices Not on filedocumented as of this encounter Visit Diagnoses Diagnosis Bilateral sensorineural hearing loss- Primary Sensorineural hearing loss, bilateral documented in this encounter Advance Directives Latest Code Status on File Code Status Date Activated Date Inactivated Comments Full Code 12/11/2022 8:30 AM 12/11/2022 4:54 PM This order reflects the patients wishes and were consensually agreed upon. Question Answer Comments Discussion of Advance Directives occurred with: Patient Care Teams Insulating Machine Operator Relationship Specialty Start Date End Date Missy Murillo MD [address] [place] [address] PCP - General Internal Medicine 12/27/23 documented as of this encounter
--- OUTSIDE RECORDS SUMMARY | 2024-02-21 01:31 | External Medical Summary | Summary of Care ---
Author Name Unknown Organization [facility] Address [address] [place] [address] Phone [phone] Care Team Providers Care Hotel Assistant General Manager Name Role Phone Missy Murillo MD Primary Care Provider [phone] Encounter Details Date Type Department Care Team (Latest Contact Info) Description 01/22/2024 10:00 AM EST Office Visit Audiology, [place] [address] [place], [place] [phone] Yung Best Au.D. [address] [place], [place] [phone] Bilateral sensorineural hearing loss* Allergies Active Allergy [...] (Temovate)Indication s:SLE (systemic lupus erythematosus related syndrome) ([facility]) APPLY TO LUPUS ON THE BODY TWICE [...] Solution (Astelin)Indications :Chronic frontal sinusitis Administer 1 [place] into nostril in the morning and 1 [place] before bedtime. 30 mL 12 01/15/2024 Active Meclizine HCl 12.5 MG Oral Tablet (Antivert)Indication s:Vertigo Take 1 Tablet by mouth 3 times a day as needed for Dizziness. 40 Tablet 1 01/15/2024 Active Hospital, Clinic, or Other Facility Administered Medication Ordered Dose Route Frequency Start Date End Date Status denosumab (PROLIA) subcut inj 60 mgIndications:Senile osteoporosis 60 mg SC [id number] 04/15/2020 Active documented as of this encounter [...] followed by Dr [facility] [place] [facility] History of stroke Overview: small lacunae in Rt basal ganaglia unknown duration documented as of this encounter (statuses as of 01/22/2024) Resolved Problems Problem Noted Date Diagnosed Date Resolved Date Generalized edema 06/06/2021 11/22/2023 Heart failure, systolic, due to CAD 07/23/2017 06/27/2018 Chest pain 06/30/2014 08/08/2015 Atrial thrombosis 06/16/2012 07/15/2012 Anticoagulation management encounter 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 It also showed possible moisture. Tympanometry 34576 Left: Flat with normal equivalent volume ("Type B") Standard audiometric testing 27549 ABSD supra-aural earphones Good reliability Right: Revealed a mild sloping down to moderately-severe (250-1000Hz), rising to moderate (2000-4000Hz), sloping to moderately-severe (6000-8000Hz) sensorineural hearing loss Left: Revealed a moderately-severe sloping down to severe sensorineural hearing loss, did note a mixed component at 4000Hz Speech recognition thresholds were consistent with hearing thresholds. Word recognition scores, obtained via recorded material were: right 88%, left 36% Shaji Ascencio, [facility] Desk Manager 01/22/2024 11:05 AM Scan: audiogram, tympanogram documented in this encounter Plan of Treatment Upcoming Encounters Date Type Department Care Team (Late st Contact Info) Description 02/12/2024 12:00 PM EDT Office Visit General Internal Medicine [facility] [address] [place] [address] Missy Murillo MD [address] [place] [address] 02/20/2024 7:00 AM EDT Laboratory Laboratory [facility] [address] [place] [phone] [facility] [address] [place] [address] [address] 03/06/2024 11:20 AM EDT Office Visit Dermatology [facility] [address] [place] [address] Dina Pearson PA-C [address] [place] [phone] 03/10/2024 9:40 AM EDT Office Visit General Internal Medicine [facility] [address] [address] Missy Murillo MD [address] [facility] [place] [address] 04/14/2024 1:30 PM EDT Office Visit Cardiology, [facility] [address] [place] [address] Ryan Jean Baptiste DO [address] [place] [address] 05/28/2024 11:40 AM EDT Office Visit Otolaryngology [facility] [address] [place] [phone] Lelo Wynn PA-C [address] [place] [address] 06/22/2024 8:30 AM EDT Office Visit Rheumatology [facility] [place] [address] [facility] [place] [address] Stuart Pineda CRNP [address] [place] [address] Health Maintenance Due Date Last Done Comments [...] D LEVEL ONCE IN A LIFETIME-USE SMARTSET# [id number] Completed 09/30/2023, 08/31/2022, 11/09/2020, Additional history exists [...] Advance Directives occurred with: Patient Care Teams Hotel Assistant General Manager Relationship Specialty Start Date End Date Missy Murillo MD 200 [place] [address] PCP - General Internal Medicine 12/27/23 documented as of this encounter
--- OUTSIDE RECORDS SUMMARY | 2024-02-21 01:31 | External Medical Summary | Summary of Care ---
Author Name Unknown Organization [facility] Address [address] [place] [address] Phone [phone] Care Team Providers Care Window Framer Name Role Phone Missy Murillo MD Primary Care Provider [phone] Reason for Visit * Reason Onset Date Comments Referral 01/15/2024 Encounter Details Date Type Department Care Team (Late st Contact Info) Description 01/15/2024 [facility] [address] [place], [place] [phone] Aaron Lea, DPT [address] [place] [address] Referral Allergies Active Allergy Reactions Criticality Noted Date Comments Venlafaxine Hydrochloride Itching 06/22/2013 [employer] Flavor Hives 04/24/2023 Sulfa Antibiotics Conjunctivitis 05/01/2000 Nonimmunologic sxs documented as of this encounter (statuses as of 01/15/2024) Medications Medication Sig Dispensed Refills Start Date [...] (Temovate)Indication s:SLE (systemic lupus erythematosus related syndrome) ([facility]) APPLY TO LUPUS ON THE BODY TWICE DAILY NEEDED FOR FLARES. 60 g 1 06/04/2022 Active Docusate Sodium 100 MG Oral Capsule (Colace) TAKE 1 SOFTGEL TWICE A DAY Strength: 100 mg 180 Capsule 2 11/08/2022 Active Metoprolol Succinate ER 25 MG Oral Tablet Extended Release 24 Hour (toPROL XL)Indications:Heart failure, systolic, due to CAD ([facility]),HTN, goal below 140/90 Take 1 Tablet by [...] failure secondary to coronary artery disease, chronic ([facility]) Take 1 Tablet by mouth in the [...] Solution (Astelin)Indications :Chronic frontal sinusitis Administer 1 [place] into nostril in the morning and 1 [place] before bedtime. 30 mL 12 01/15/2024 Active Meclizine HCl 12.5 MG Oral Tablet (Antivert)Indication s:Vertigo Take 1 Tablet by mouth 3 times a day as needed for Dizziness. 40 Tablet 1 01/15/2024 Active Hospital, Clinic, or Other Facility Administered Medication Ordered Dose Route Frequency Start Date End Date Status denosumab (PROLIA) subcut inj 60 mgIndications:Senile osteoporosis 60 mg SC [id number] 04/15/2020 Active documented as of this encounter (statuses as of 01/15/2024) Active Problems Problem Noted Date Diagnosed Date [...] followed by Dr [facility] [place] [facility] History of stroke Overview: small lacunae in Rt basal ganaglia unknown duration documented as of this encounter (statuses as of 01/15/2024) Resolved Problems Problem Noted Date Diagnosed Date Resolved Date Generalized edema 06/06/2021 11/22/2023 Heart failure, systolic, due to CAD 07/23/2017 06/27/2018 Chest pain 06/30/2014 08/08/2015 Atrial thrombosis 06/16/2012 07/15/2012 Anticoagulation management encounter 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/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 06/02/2012 06/02/2012 Overview: ICD-10 update of inactive term Heart failure due to valvular disease 06/02/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 06/02/2012 [...] as of this encounter (statuses as of 01/15/2024) Immunizations Name Administration Dates Next Due COVID-19 mRNA, LNP-s, No Pre serve, 2-Dose Series ([employer]) 08/10/2021,02/21/2021,01/31/2021 COVID-19, LNP-s, No Preserve , Brennan-sucrose, [...] Care Team (Late st Contact Info) Description 01/20/2024 3:30 PM EST Cardiac Studies Cardiac Studies, [facility] 132 [facility] [place] [address] 02/12/2024 12:00 PM EDT Office Visit General Internal Medicine [facility] [address] [place] [address] Missy Murillo MD [address] [place] [address] 02/20/2024 7:00 AM EDT Laboratory Laboratory [facility] [place] [address] [place] [phone] [facility] [address] [facility] [place] [address] 03/06/2024 11:20 AM EDT Office Visit Dermatology [facility] [place] [address] [place] [address] Dina Pearson PA-C [address] [place] [phone] 03/10/2024 9:40 AM EDT Office Visit General Internal Medicine [facility] 200 [facility] [place], [place] [address] Missy Murillo MD 200 [facility] [place] [address] 05/28/2024 11:40 AM EDT Office Visit Otolaryngology [facility] [address] [place] [address] Lelo Wynn PA-C [address] [place] [address] 06/22/2024 8:30 AM EDT Office Visit Rheumatology [facility] [address] [place] [address] Stuart Pineda CRNP [address] [place] [address] Health Maintenance Due Date Last Done Comments Depression Screening 04/02/2024 04/02/2023 GFR 09/30/2024 09/30/2023, 0606/2023, 01/16/2023, Additional history exists TSH 09/30/2024 09/30/2023, 0506/2023, 02/25/2023, Additional history exists DXA Scan 06/17/2025 [...] D LEVEL ONCE IN A LIFETIME-USE SMARTSET# [id number] Completed 09/30/2023, 08/31/2022, 11/09/2020, Additional history exists [...] Advance Directives occurred with: Patient Care Teams Window Framer Relationship Specialty Start Date End Date Missy Murillo MD 200 [facility] [place] [address] PCP - General Internal Medicine 12/27/23 documented as of this encounter
--- OUTSIDE RECORDS SUMMARY | 2024-02-21 01:31 | External Medical Summary | Summary of Care ---
Author Name Unknown Organization [facility] Address [address] [place] [address] Phone [phone] Care Team Providers Care Enrollment Coordinator Name Role Phone Missy Murillo MD Primary Care Provider [phone] Encounter Details Date Type Department Care Team (Late st Contact Info) Description 01/22/2024 Orders Only Audiology, [place] [address] [place], [place] [phone] Yung Best Au.D. [address] [place], [place] [phone] Allergies Active Allergy Reactions Criticality Noted Date [...] (Temovate)Indication s:SLE (systemic lupus erythematosus related syndrome) ([facility]) APPLY TO LUPUS ON THE BODY TWICE DAILY NEEDED FOR FLARES. 60 g 1 06/04/2022 Active Docusate Sodium 100 MG Oral Capsule (Colace) TAKE 1 SOFTGEL TWICE A DAY Strength: 100 mg 180 Capsule 2 11/08/2022 Active Metoprolol Succinate ER 25 MG Oral Tablet Extended Release 24 Hour (toPROL XL)Indications:Heart failure, systolic, due to CAD ([facility]),HTN, goal below 140/90 Take 1 Tablet by [...] Solution (Astelin)Indications :Chronic frontal sinusitis Administer 1 [place] into nostril in the morning and 1 [place] before bedtime. 30 mL 12 01/15/2024 Active Meclizine HCl 12.5 MG Oral Tablet (Antivert)Indication s:Vertigo Take 1 Tablet by mouth 3 times a day as needed for Dizziness. 40 Tablet 1 01/15/2024 Active Hospital, Clinic, or Other Facility Administered Medication Ordered Dose Route Frequency Start Date End Date Status denosumab (PROLIA) subcut inj 60 mgIndications:Senile osteoporosis 60 mg SC [id number] 04/15/2020 Active documented as of this encounter [...] followed by Dr Pardo [facility] [place] [facility] History of stroke Overview: small lacunae in Rt basal ganaglia unknown duration documented as of this encounter (statuses as of 01/22/2024) Resolved Problems Problem Noted Date Diagnosed Date Resolved Date Generalized edema 06/06/2021 11/22/2023 Heart failure, systolic, due to CAD 07/23/2017 06/27/2018 Chest pain 06/30/2014 08/08/2015 Atrial thrombosis 06/16/2012 07/15/2012 Anticoagulation management encounter 06/02/2012 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 06/02/2012 06/02/2012 Overview: ICD-10 update of inactive term Heart failure due to valvular disease 06/02/2012 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 [...] mRNA, LNP-s, No Pre serve, 2-Dose Series ([email or web address]) 08/10/2021,02/21/2021,01/31/2021 COVID-19, LNP-s, No Preserve , Brennan-sucrose, Ages 12+ ([email or web address]) 04/27/2022 COVID-19, MRNA-LNP, 23-24, P F, 30 [...] PM EDT Office Visit General Internal Medicine [facility] [address] [place] [address] Missy Murillo MD [address] [place] [address] 02/20/2024 7:00 AM EDT Laboratory Laboratory [facility] [address] [place] [phone] [facility] [address] [facility] [place] [address] 03/06/2024 11:20 AM EDT Office Visit Dermatology [facility] [address] [place] [address] Dina Pearson PA-C [address] [place] [phone] 03/10/2024 9:40 AM EDT Office Visit General Internal Medicine [facility] [address] [place] [address] Missy Murillo MD [address] [place] [address] 04/14/2024 1:30 PM EDT Office Visit Cardiology, [facility] [address] [place] [address] Ryan Jean Baptiste DO [address] [place] [address] 05/28/2024 11:40 AM EDT Office Visit Otolaryngology [facility] [address] [place] [address] Lelo Wynn PA-C [address] [place] [address] 06/22/2024 8:30 AM EDT Office Visit Rheumatology [facility] [address] [place] [address] Stuart Pineda CRNP [facility] [address] [place] [address] Health Maintenance Due Date Last Done Comments [...] D LEVEL ONCE IN A LIFETIME-USE SMARTSET# [id number] Completed 09/30/2023, 08/31/2022, 11/09/2020, Additional history exists Cologuard Discontinued GARDASIL-HPV IMMUNIZATION SERIES Aged Out No longer eligible based on patient's age to complete this topic MENINGOCOCCAL (MENACTRA/MENVEO) Aged Out No longer eligible based on patient's age to complete this topic Sigmoidoscopy Discontinued documented as of this encounter Medical Devices Not on filedocumented as of this encounter Procedures Procedure Name Priority Date/Time Associated Diagnosis Comments AUDIOMETRIC RESULT 01/22/2024 documented in this encounter Results * AUDIOMETRIC RESULT (01/22/2024) 01/22/2024 Yung Girard [employer] documented in this encounter Advance Directives Latest Code Status on File Code Status Date Activated Date Inactivated Comments Full Code 12/11/2022 8:30 AM 12/11/2022 4:54 PM This order reflects the patients wishes and were consensually agreed upon. Question Answer Comments Discussion of Advance Directives occurred with: Patient Care Teams Enrollment Coordinator Relationship Specialty Start Date End Date Missy Murillo MD 200 [place] [address] PCP - General Internal Medicine 12/27/23 documented as of this encounter
--- OUTSIDE RECORDS SUMMARY | 2024-02-21 01:31 | External Medical Summary | Summary of Care ---
Author Name Unknown Organization [facility] Address [address] [place] [address] Phone [phone] Care Team Providers Care Railroad Track Repair Supervisor Name Role Phone Missy Murillo MD Primary Care Provider [phone] Encounter Details Date Type Department Care Team (Late st Contact Info) Description 01/22/2024 9:00 AM EST Office Visit [facility] [address], [place] [id number] Roselyn Hall, PT [address] [place] [address] Vestibular hypofunction of left ear*; Imbalance Allergies Active Allergy Reactions Criticality Noted Date Comments Venlafaxine Hydrochloride Itching 06/22/2013 [place] Flavor Hives 04/24/2023 Sulfa Antibiotics Conjunctivitis 05/01/2000 Nonimmunologic sxs documented as of this encounter (statuses as of 01/25/2024) Medications Medication Sig Dispensed Refills Start Date [...] (systemic lupus erythematosus related syndrome) ([facility]) APPLY TO LUPUS ON THE BODY TWICE [...] Solution (Astelin)Indications :Chronic frontal sinusitis Administer 1 [place] into nostril in the morning and 1 [place] before bedtime. 30 mL 12 01/15/2024 Active Meclizine HCl 12.5 MG Oral Tablet (Antivert)Indication s:Vertigo Take 1 Tablet by mouth 3 times a day as needed for Dizziness. 40 Tablet 1 01/15/2024 Active Hospital, Clinic, or Other Facility Administered Medication Ordered Dose Route Frequency Start Date End Date Status denosumab (PROLIA) subcut inj 60 mgIndications:Senile osteoporosis 60 mg SC [id number] 04/15/2020 Active documented as of this encounter (statuses as of 01/25/2024) Active Problems Problem Noted Date Diagnosed Date [...] followed by [facility] [place] [facility] History of stroke Overview: small lacunae in Rt basal ganaglia unknown duration documented as of this encounter (statuses as of 01/25/2024) Resolved Problems Problem Noted Date Diagnosed Date Resolved Date Generalized edema 06/06/2021 11/22/2023 Heart failure, systolic, due to CAD 07/23/2017 06/27/2018 Chest pain 06/30/2014 08/08/2015 Atrial thrombosis 06/16/2012 07/15/2012 Anticoagulation management encounter 06/02/2012 06/02/2012 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 [facility] [address] [address] Dept. Name: Leyla Gaona Date: 01/22/2024 [facility] Is the patient at risk or have skin breakdown? no Does the patient feel safe and secure in their home environment? yes Work status? retired Motivation to learn: High Barriers to learning: Hearing impairments and Visual Impairment Preferred method of learning: Demonstration History HPI: Pt is a 78 year old female referred to the balance center due to a 2 week history of unsteadiness with gait/station and oscillopsia that is worsened with head motion. Symptoms were preceded by an acute spontaneous episode of vertigo on 01/13/2024. Patient reports a 2 month history of "problems" with her left ear noting pain, drainage, fullness, decreased hearing. She states she used to be able to use the telephone in her left ear and now she can not. She reports a long standing history of frequent ear infections in both ears. Patient denies further spontaneous episodes or a prior history of vertigo. Denies falls associated with vertigo. Patient denies diplopia, dysarthria, limb incoordination, intractable hiccups, or sensory disturbances. Patient was seen in the ED 01/13/24 and per patient report she had a CT scan and MRI of brain without contrast - results no available in [facility]. Patient reports she is legally blind and uses a cane for mobility to decreased vision and general balance issues. Patient reports a prior history of a CVA. Denies substance abuse. PMH: Patient Active Problem List Diagnosis Code Acquired hypothyroidism E03.9 Chronic nonseasonal allergic rhinitis due to pollen J30.89 ADVANCE DIRECTIVE INFORMATION SIADH (syndrome of inappropriate ADH production) ([facility]) E22.2 SLE (systemic lupus erythematosus related syndrome) ([facility]) M32.9 Encounter for long-term (current) use of medications Z79.899 HTN, goal below 140/90 I10 Retinal artery occlusion H34.9 Dyslipidemia, goal LDL below 70 E78.5 Senile osteoporosis M81.0 Reactive hypoglycemia E16.1 Orthostatic hypotension I95.1 Raynaud's disease without gangrene I73.00 Slow transit constipation K59.01 History of stroke Z86.[address] elevation myocardial infarction (STEMI) I25.2 Presence of stent in LAD coronary artery Z95.5 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, chronic ([facility]) I50.32, I25.10 TOVA (generalized anxiety disorder) F41.1 Cachectic ([facility]) R64 Neutropenia ([facility]) D70.9 Immunocompromised state ([facility]) D84.9 Microcalcifications of the breast R92.0 Ischemic cardiomyopathy I25.5 Status post left hip replacement Z96.642 Leukopenia D72.819 Medications: Current Outpatient Medications Medication Sig Dispense Refill [facility] PROBIOTIC PO CAPS one capsule by mouth once daily polyethylene glycol 3350 (MIRALAX) 255 gram powder Dissolve two capfuls in 8 oz of water or juice daily 3 Bottle 2 nitroglycerin (NITROSTAT) 0.[address] 1 Tablet under the tongue every 5 minutes as needed. Aspirin 81 MG Oral Tablet Delayed Release TAKE 1 TABLET BY MOUTH EVERY DAY 90 Tab 2 Zinc 50 MG Oral Capsule Take 1 Capsule by mouth in the morning. Restasis 0.05 % Ophthalmic Emulsion INSTILL 1 DROP INTO AFFECTED EYE EVERY 12 HOURS Vitamin D (Cholecalciferol) 50 MCG (2000 UT) Oral Capsule Take by mouth . Fluticasone Propionate 50 MCG/ACT Nasal Suspension (Flonase) ADMINISTER 2 SPRAYS INTO EACH NOSTRIL DAILY. 48 mL 3 Clobetasol Propionate 0.05 % External Shampoo Apply to scalp when washing hair and rinse after 2-3 min 118 mL 5 Tacrolimus 0.1 % External Ointment (Protopic) Apply topically to affected area 2 times a day . Apply to spots on face twice daily 60 g 5 Clobetasol Propionate 0.05 % External Cream (Temovate) APPLY TO LUPUS ON THE BODY TWICE DAILY NEEDED FOR FLARES. 60 g 1 Docusate Sodium 100 MG Oral Capsule (Colace) TAKE 1 SOFTGEL TWICE A DAY Strength: 100 mg 180 Capsule 2 Metoprolol Succinate ER 25 MG Oral Tablet Extended Release 24 Hour (toPROL XL) Take 1 Tablet by mouth in the morning. 90 Tablet 3 Levothyroxine Sodium 112 MCG Oral Tablet (Synthroid) Take 1 Tablet by mouth daily first thing in the morning. (at least 30 min prior to breakfast or other meds) REZA brand name Synthroid 90 Tablet 3 [facility] Senna 8.6 MG Oral Tablet TAKE 1 TABLET BY ORAL ROUTE 2 TIMES EVERY DAY NEEDED FOR CONSTIPATION NEEDED Multi-Vitamin Oral Tablet Take 1 Tablet by mouth. oxyCODONE HCl 5 MG Oral Tablet (Oxy IR) Furosemide 20 MG Oral Tablet (Lasix) Take 1 Tablet by mouth in the morning. 135 Tablet 1 Hydroxychloroquine Sulfate 200 MG Oral Tablet (Plaquenil) Take 1 tablet by mouth every day at bedtime 90 Tablet 1 Lisinopril 2.5 MG Oral Tablet (Prinivil) TAKE 1 TABLET BY MOUTH EVERY DAY 90 Tablet 3 Ofloxacin 0.3 % Otic Solution (Floxin) 5 Drops as needed (for ear wax, per ENT). Mupirocin 2 % External Ointment (Bactroban) Apply topically to affected area 3 times a day. As directed. 15 g 1 Cetirizine HCl 10 MG Oral Tablet (ZyrTEC Allergy) Take 1 Tablet by mouth daily as needed for Rhinitis. Atorvastatin Calcium 80 MG Oral Tablet (Lipitor) Take 1 Tablet by mouth in the morning. Inc 11/22/2023. 90 Tablet 3 Ensure Complete Oral Liquid 1 cup daily-st 11/23/2023 Clopidogrel Bisulfate 75 MG Oral Tablet (pLAVix) TAKE 1 TABLET BY MOUTH EVERY DAY 90 Tablet 3 traMADol HCl 50 MG Oral Tablet (Ultram) Take 1 Tablet by mouth 2 times a day as needed for Pain, Moderate or Pain, Severe. 20 Tablet 0 Fluconazole 150 MG Oral Tablet (Diflucan) Take 1 pill Today and repeat in 2 weeks 2 Tablet 0 amLODIPine Besylate 2.5 MG Oral Tablet (Norvasc) Take 0.5 Tablets by mouth in the morning. If BP still low on 3/4 hold until directed. predniSONE 10 MG Oral Tablet (Deltasone) Take 4 tabs for 3 days, 3 tabs for 3 days, 2 tabs for 2 days 1 tab for 2 days 30 Tablet 0 Azelastine HCl 0.1 % Nasal Solution (Astelin) Administer 1 [place] into nostril in the morning and 1 [place] before bedtime. 30 mL 12 Meclizine HCl 12.5 MG Oral Tablet (Antivert) Take 1 Tablet by mouth 3 times a day as needed for Dizziness. 40 Tablet 1 Current Facility-Administered Medications Medication Dose Route Frequency Provider Last Rate Last Admin denosumab (PROLIA) subcut inj 60 mg 60 mg Subcutaneous Q6 Months Tha Newton MD 60 mg at 04/15/20 1353 Prior level of function/Social history: Patient lives with spouse, prior level of function was modified independent with use of cane (patient is legally blind and uses a red tip cane) Examination Systems screen Cervical ROM is limited to 45 degrees rotation and 10 degrees extension Upper and lower extremity coordination testing is normal External auditory canals grossly clear, tympanic membranes appear intact bilaterally, left appears moist Torres does not lateralize Rinne: air > bone conduction bilaterally 512 Hz tuning fork: right > left (unable to hear tuning fork in left ear) Oculomotor Screen/Vestibular-Ocular Reflex Testing Pursuit: grossly normal Ocular range of motion: normal bilaterally Gaze holding: ? Trace 1st degree right beating nystagmus with fixation blocked Saccades: grossly accurate Head impulse test: overtly positive to the left, negative to the right Head-shaking test: did not accentuate right beating nystagmus Mastoid vibration: rightward bias Hyperventilation: did not accentuate right beating nystagmus Test of Skew: grossly negative Balance: Romberg: negative with eyes open and positive closed Gait: Unsteady, requiring assistance of cane and hand held assist, wide-base, slow, turns en-bloc, imbalance accentuated with multi-directional head movements. Positioning tests: (2 cycles per side) Loaded Kalani-Hallpike: Right: Negative for BPPV - light right beating nystagmus, persistent, noted without fixation, no complaint of dizziness Left: Negative for BPPV - ? trace right beating nystagmus, persistent, noted without fixation, no complaint of dizziness Supine Roll manuever: Negative bilaterally Audiogram: Treatment Completed: Patient was instructed in the attached home exercise to address vestibular compensation. All exercises were safely demonstrated following the instructions. Assessment / Plan : Pt is a 78 year old female with likely left vestibular hypofunction. Impairments include head motion-induced oscillopsia and imbalance with vestibular-biased challenges. Patient given VOR exercises to perform in sitting. Patient can not safely perform independent vestibular compensation exercises in standing. Recommend out-patient PT for supervised vestibular compensation exercises. Will contact patient in 2 week to assess if patient is noting functional improvements. Patient also noting decrease hearing left ear x 1 -2 months. Audiogram demonstrates significant decline in speech discrimination on the left compared to audiogram completed on 11/15/23. Discussed case with Dr. Lujan (ENT). He is ordering MRI of IACs (with contrast) to rule out mass. If MRI is negative, patient may have left labyrinthitis. The patient is highly appropriate for treatment with balance/vestibular rehabilitation. Rehabilitation potential: Good Goals: Less than 12 weeks Participate in supervised vestibular compensation exercise program Subjective improvement in overall balance by 50% Approximately 1 visit/week for 6 months, visit frequency will decrease as the patient progresses. Plan will include instruction in gait, balance and gaze stabilization exercises. Will progress homeexercises as tolerated. Educate patient in condition and outcome expectations. Treatment plan was reviewed with the patient who agreed with the plan of care PROMISE Maravilla [facility] Otol[facility]ology [facility] Vest[facility] Rehabilitation documented in this encounter Plan of Treatment Upcoming Encounters Date Type Department Care Team (Late st Contact Info) Description 02/08/2024 1:45 PM EDT Imaging Radiology [address] [facility] [place] [address] 02/12/2024 12:00 PM EDT Office Visit General Internal Medicine [facility] [address] [place] [address] Missy Murillo MD [address] [facility] [place] [address] 02/20/2024 7:00 AM EDT Laboratory Laboratory [facility] [address] [place] [phone] Skylar [facility] [address] [facility] [place] [address] 03/06/2024 11:20 AM EDT Office Visit Dermatology [facility] [place] [address] [place] [address] Dina Pearson PA-C [address] [place] [phone] 03/10/2024 9:40 AM EDT Office Visit General Internal Medicine [facility] [address] [place] [address] Missy Murillo MD [address] [facility] [place] [address] 04/14/2024 1:30 PM EDT Office Visit Cardiology, [facility] [address] [place] [address] Ryan Jean Baptiste DO [address] [place] [address] 05/28/2024 11:40 AM EDT Office Visit Otolaryngology [facility] [address] [place] [address] Lelo Wynn PA-C [address] [place] [id number] 06/22/2024 8:30 AM EDT Office Visit Rheumatology [place] [id number] [facility] [place] [address] Stuart Pineda CRNP [address] [place] [address] [place] [address] Health Maintenance Due Date Last Done Comments [...] D LEVEL ONCE IN A LIFETIME-USE SMARTSET# [id number] Completed 09/30/2023, 08/31/2022, 11/09/2020, Additional history exists Cologuard Discontinued GARDASIL-HPV IMMUNIZATION SERIES Aged Out No longer eligible based on patient's age to complete this topic MENINGOCOCCAL (MENACTRA/MENVEO) Aged Out No longer eligible based on patient's age to complete this topic Sigmoidoscopy Discontinued documented as of this encounter Medical Devices Not on filedocumented as of this encounter Visit Diagnoses Diagnosis Vestibular hypofunction of left ear- Primary Imbalance Abnormality of gait documented in this encounter Advance Directives Latest Code Status on File Code Status Date Activated Date Inactivated Comments Full Code 12/11/2022 8:30 AM 12/11/2022 4:54 PM This order reflects the patients wishes and were consensually agreed upon. Question Answer Comments Discussion of Advance Directives occurred with: Patient Care Teams Railroad Track Repair Supervisor Relationship Specialty Start Date End Date Missy Murillo MD [address] [place] [address] PCP - General Internal Medicine 12/27/23 documented as of this encounter
--- OUTSIDE RECORDS SUMMARY | 2024-02-21 01:31 | External Medical Summary | Summary of Care ---
Author Name Unknown Organization [facility] Address [address] [place] [address] Phone [phone] Care Team Providers Care Bookkeeper Receptionist Name Role Phone Missy Murillo MD Primary Care Provider [phone] Reason for Referral * Precert (Within 10 days (routine)) - Pending Review Specialty Diagnoses / Procedures Referred By Mario carrera Referred To Contact Radiology Diagnoses Asymmetrical sensorineural hearing loss Other disorders of vestibular function, left ear Procedures MRI INTERNAL AUDITORY CANAL W WO CONTRAST Missael Lujan MD [address] [place] [address] Referral ID Status Reason Start Date Expiration Date V isits Requested Visits Authorized [id number] Pending Review 01/22/[phone] Encounter Details Date Type Department Care Team (Late st Contact Info) Description 01/22/2024 Orders Only Otolaryngology/Head & Neck/Facial Plastic Surgery [address], [place] [id number] Missael Lujan MD [address] [place] [address] Asymmetrical sensorineural hearing loss*; Other disorders of vestibular function, left ear Allergies Active Allergy Reactions Criticality Noted Date [...] (Temovate)Indication s:SLE (systemic lupus erythematosus related syndrome) ([facility]) APPLY [...] Solution (Astelin)Indications :Chronic frontal sinusitis Administer 1 [place] into nostril in the morning and 1 [place] before bedtime. 30 mL 12 01/15/2024 Active Meclizine HCl 12.5 MG Oral Tablet (Antivert)Indication s:Vertigo Take 1 Tablet by mouth 3 times a day as needed for Dizziness. 40 Tablet 1 01/15/2024 Active Hospital, Clinic, or Other Facility Administered Medication Ordered Dose Route Frequency Start Date End Date Status denosumab (PROLIA) subcut inj 60 mgIndications:Senile osteoporosis 60 mg SC [id number] 04/15/2020 Active documented as of this encounter [...] followed by Dr [facility] [place] [facility] History of stroke Overview: small lacunae in Rt basal ganaglia unknown duration documented as of this encounter (statuses as of 01/22/2024) Resolved Problems Problem Noted Date Diagnosed Date Resolved Date Generalized edema 06/06/2021 11/22/2023 Heart failure, systolic, due to CAD 07/23/2017 06/27/2018 Chest pain 06/30/2014 08/08/2015 Atrial thrombosis 06/16/2012 07/15/2012 Anticoagulation management encounter 06/02/2012 06/02/2012 [facility] current use of ant [...] mRNA, LNP-s, No Pre serve, 2-Dose Series ([employer]) 08/10/2021,02/21/2021,01/31/2021 COVID-19, LNP-s, No Preserve , Brennan-sucrose, Ages 12+ ([employer]) 04/27/2022 COVID-19, MRNA-LNP, 23-24, P F, 30 MCG/0.3 mL, 12 YRS AND ABOVE, IM ([facility]) 08/29/2023 Covid-19, Mrna, Lnp-s, Pf, B ivalent, 30 Mcg, IM, 12 yrs and above ([employer]) 08/31/2022 HepA Inact/HepB Recomb>=18yrs old 03/22/2022,,09/07/2021 PPD [...] PM EDT [facility] [place] [address] [place] [address] Missy Murillo MD [address] [place] [address] 02/20/2024 7:00 AM EDT Laboratory Laboratory [place] [facility] [place] [address] [place] [phone] [facility] [address] [place] [address] 03/06/2024 11:20 AM EDT Office Visit Dermatology [facility] [address] [place] [address] Dina Pearson PA-C 200 [facility] [place] [id number] 03/10/2024 9:40 AM EDT Office Visit General Internal Medicine [facility] [address] [place] [address] Missy Murillo MD 200 [facility] [place] [address] 04/14/2024 1:30 PM EDT Office Visit Cardiology, [facility] [address] [place] [address] Ryan Jean Baptiste DO [address] [place] [address] 05/28/2024 11:40 AM EDT Office Visit Otolaryngology [facility] [address] [place] [address] Lelo Wynn PA-C [address] [place] [address] 06/22/2024 8:30 AM EDT Office Visit Rheumatology [place] [id number] [facility] [place] [address] Stuart Pineda CRNP [address] [place] [address] [place], [place] [address] Scheduled Orders Name Type Priority Associated Diagnoses Orde r Schedule MRI INTERNAL AUDITORY CANAL W WO CONTRAST Medical Imaging Routine Asymmetrical sensorineural hearing loss Other disorders of vestibular function, left ear Expected: 01/22/2024, Expires: 02/21/2025 Health Maintenance Due Date Last Done Comments [...] D LEVEL ONCE IN A LIFETIME-USE SMARTSET# [id number] Completed 09/30/2023, 08/31/2022, 11/09/2020, Additional history exists Cologuard Discontinued GARDASIL-HPV IMMUNIZATION SERIES Aged Out No longer eligible based on patient's age to complete this topic MENINGOCOCCAL (MENACTRA/MENVEO) Aged Out No longer eligible based on patient's age to complete this topic Sigmoidoscopy Discontinued documented as of this encounter Medical Devices Not on filedocumented as of this encounter Visit Diagnoses Diagnosis Asymmetrical sensorineural hearing loss- Primary Sensorineural hearing loss, asymmetrical Other disorders of vestibular function, left ear documented in this encounter Advance Directives Latest Code Status on File Code Status Date Activated Date Inactivated Comments Full Code 12/11/2022 8:30 AM 12/11/2022 4:54 PM This order reflects the patients wishes and were consensually agreed upon. Question Answer Comments Discussion of Advance Directives occurred with: Patient Care Teams Bookkeeper Receptionist Relationship Specialty Start Date End Date Missy Murillo MD [address] [place] [address] PCP - General Internal Medicine 12/27/23 documented as of this encounter
--- OUTSIDE RECORDS SUMMARY | 2024-02-21 01:31 | External Medical Summary | Summary of Care ---
Author Name Unknown Organization [facility] Address [address] [facility] [place] [address] Phone [phone] Care Team Providers Care Shank Breaker Name Role Phone Missy Murillo MD Primary Care Provider [phone] Reason for Visit * Reason Onset Date Comments Test Results 01/24/2024 Encounter Details Date Type Department Care Team (Late st Contact Info) Description 01/24/2024 Telephone Cardiology, [facility] [address] [place] [address] Ryan Jean Baptiste, [address] [place] [address] Test Results Allergies Active Allergy Reactions Criticality Noted Date Comments Venlafaxine Hydrochloride Itching 06/22/2013 [place] Flavor Hives 04/24/2023 Sulfa Antibiotics Conjunctivitis 05/01/2000 Nonimmunologic sxs documented as of this encounter (statuses as of 01/27/2024) Medications Medication Sig Dispensed Refills Start Date [...] (Temovate)Indication s:SLE (systemic lupus erythematosus related syndrome) ([facility]) APPLY TO LUPUS ON THE BODY [...] the morning. If BP still low on 4 hold until directed. 0 01/15/2024 Active predniSONE 10 MG Oral Tablet (Deltasone)Indicatio ns:Vertigo,Chronic frontal sinusitis Take 4 tabs for 3 days, 3 tabs for 3 days, 2 tabs for 2 days 1 tab for 2 days 30 Tablet 0 01/15/2024 Active Azelastine HCl 0.1 % Nasal Solution (Astelin)Indications :Chronic frontal sinusitis Administer 1 [place] into nostril in the morning and 1 [place] before bedtime. 30 mL 12 01/15/2024 Active Meclizine HCl 12.5 MG Oral Tablet (Antivert)Indication s:Vertigo Take 1 Tablet by mouth 3 times a day as needed for Dizziness. 40 Tablet 1 01/15/2024 Active Hospital, Clinic, or Other Facility Administered Medication Ordered Dose Route Frequency Start Date End Date Status denosumab (PROLIA) subcut inj 60 mgIndications:Senile osteoporosis 60 mg SC [id number] 04/15/2020 Active documented as of this encounter (statuses as of 01/27/2024) Active Problems Problem Noted Date Diagnosed Date [...] followed by Dr [facility] [place] [facility] History of stroke Overview: small lacunae in Rt basal ganaglia unknown duration documented as of this encounter (statuses as of 01/27/2024) Resolved Problems Problem Noted Date Diagnosed Date Resolved Date Generalized edema 06/06/2021 11/22/2023 Heart failure, systolic, due to CAD 07/23/2017 06/27/2018 Chest pain 06/30/2014 08/08/2015 Atrial thrombosis 06/16/2012 07/15/2012 Anticoagulation management encounter 06/02/2012 06/02/2012 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 * Telephone Encounter - Pierre Medina LPN - 01/24/2024 9:38 AM EST Echo ordered by Dr. Ziegler. Please forward to correct pool. * Telephone Encounter - Mirela Kaplan OSA - 01/24/2024 9:06 AM EST Person calling: patient Relationship to patient: patient Number to return call: [phone] - please leave a message with the results Reason for call: test results from the echo please Pharmacy: n/a Provider Name: Ita documented in this encounter Plan of Treatment Upcoming Encounters Date Type Department Care Team (Late st Contact Info) Description 02/08/2024 1:45 PM EDT Imaging Radiology [address] [facility] [place] [address] 02/12/2024 12:00 PM EDT Office Visit General Internal Medicine [facility] [address] [place] [address] Missy Murillo MD [address] [place] [address] 02/20/2024 7:00 AM EDT Laboratory Laboratory [facility] [address] [place] [phone] [place], Lab [facility] [address] [facility] [place] [address] 02/21/2024 9:30 AM EDT Office Visit Otolaryngology [facility] [address] [facility] [place] [address] Dc Diamond, DO 132 [facility] [place] [address] 03/06/2024 11:20 AM EDT Office Visit Dermatology [facility] [address] [place] [address] Dina Pearson PA-C 200 [facility] [place] [phone] 03/10/2024 9:40 AM EDT Office Visit General Internal Medicine [facility] [address] [place] [address] Missy Murillo MD [address] [facility] [place], [place] [address] 04/14/2024 1:30 PM EDT Office Visit Cardiology, [facility] [address] [facility] [place] [address] Ryan Jean Baptiste, DO [address] [place] [address] 05/28/2024 11:40 AM EDT Office Visit Otolaryngology [facility] [address] [place] [address] Lelo Wynn PA-C [address] [place] [address] 06/22/2024 8:30 AM EDT Office Visit Rheumatology [facility] [address] [place] [address] Stuart Pineda CRNP [address] [place] [address] Health Maintenance Due Date Last Done Comments Depression Screening 04/02/2024 04/02/2023 GFR 09/30/2024 09/30/2023, 0 06/2023, 01/16/2023, Additional history exists TSH 09/30/2024 09/30/2023, 050 06/2023, 02/25/2023, Additional history exists DXA Scan [...] D LEVEL ONCE IN A LIFETIME-USE SMARTSET# [id number] Completed 09/30/2023, 08/31/2022, 11/09/2020, Additional history exists [...] Advance Directives occurred with: Patient Care Teams Shank Breaker Relationship Specialty Start Date End Date Missy Murillo MD 200 [facility] [place] [address] PCP - General Internal Medicine 12/27/23 documented as of this encounter
--- OUTSIDE RECORDS SUMMARY | 2024-02-21 01:31 | External Medical Summary | Summary of Care ---
Author Name Unknown Organization [facility] Address [address] [place] [address] Phone [phone] Care Team Providers Care Entry Level Java Developer Name Role Phone Missy Murillo MD Primary Care Provider [phone] Encounter Details Date Type Department Care Team (Latest Contact Info) Description 01/22/2024 10:00 AM EST Office Visit Audiology, [place] [address] [place], [place] [id number] Yung Best Au.D. [address] [place], [place] [phone] Bilateral sensorineural hearing loss* Allergies Active Allergy [...] (systemic lupus erythematosus related syndrome) ([facility]) APPLY TO LUPUS ON THE BODY TWICE [...] Solution (Astelin)Indications :Chronic frontal sinusitis Administer 1 [place] into nostril in the morning and 1 [place] before bedtime. 30 mL 12 01/15/2024 Active Meclizine HCl 12.5 MG Oral Tablet (Antivert)Indication s:Vertigo Take 1 Tablet by mouth 3 times a day as needed for Dizziness. 40 Tablet 1 01/15/2024 Active Hospital, Clinic, or Other Facility Administered Medication Ordered Dose Route Frequency Start Date End Date Status denosumab (PROLIA) subcut inj 60 mgIndications:Senile osteoporosis 60 mg SC [id number] 04/15/2020 Active documented as of this encounter [...] followed by Dr [facility] [place] [facility] History of stroke Overview: small lacunae in Rt basal ganaglia unknown duration documented as of this encounter (statuses as of 01/22/2024) Resolved Problems Problem Noted Date Diagnosed Date Resolved Date Generalized edema 06/06/2021 11/22/2023 Heart failure, systolic, due to CAD 07/23/2017 06/27/2018 Chest pain 06/30/2014 08/08/2015 Atrial thrombosis 06/16/2012 07/15/2012 Anticoagulation management encounter 06/02/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 It also showed possible moisture. Tympanometry [address] Left: Flat with normal equivalent volume ("Type B") Standard audiometric testing 89093 ABSD supra-aural earphones Good reliability Right: Revealed [...] were: right 88%, left 36% Shaji Ascencio, [facility]-A Sales Order Processor 01/22/2024 11:05 AM Scan: audiogram, tympanogram documented in this encounter Plan of Treatment Upcoming Encounters Date Type Department Care Team (Late st Contact Info) Description 02/12/2024 12:00 PM EDT Office Visit General Internal Medicine [facility] [address] [place] [address] Missy Murillo MD [address] [place] [address] 02/20/2024 7:00 AM EDT Laboratory Laboratory [facility] [address] [place] [phone] [facility] 200 [facility] [place] [address] 03/06/2024 11:20 AM EDT Office Visit Dermatology [facility] [address] [place] [address] Dina Pearson PA-C 200 [facility] [place] [phone] 03/10/2024 9:40 AM EDT Office Visit General Internal Medicine [facility] [address] [place] [address] Missy Murillo MD [address] [facility] [place] [address] 04/14/2024 1:30 PM EDT Office Visit Cardiology, [facility] [address] [place] [address] Ryan Jean Baptiste DO [address] [place] [address] 05/28/2024 11:40 AM EDT Office Visit Otolaryngology [facility] [address] [place] [address] Lelo Wynn PA-C [address] [place] [address] 06/22/2024 8:30 AM EDT Office Visit Rheumatology [facility] [address] [place] [address] Stuart Pineda, TEOFILO [address] [place] [address] Health Maintenance Due Date Last Done Comments [...] D LEVEL ONCE IN A LIFETIME-USE SMARTSET# [id number] Completed 09/30/2023, 08/31/2022, 11/09/2020, Additional history exists [...] Advance Directives occurred with: Patient Care Teams Entry Level Java Developer Relationship Specialty Start Date End Date Missy Murillo MD [address] [place] [address] PCP - General Internal Medicine 12/27/23 documented as of this encounter
--- OUTSIDE RECORDS SUMMARY | 2024-02-21 01:32 | External Medical Summary | Summary of Care ---
Author Name Unknown Organization [facility] Address [address] [facility] [place] [address] Phone [phone] Care Team Providers Care Scrum Product Owner Name Role Phone Missy Murillo MD Primary Care Provider [phone] Reason for Visit * Reason Onset Date Comments Appointment 01/15/2024 Encounter Details Date Type Department Care Team (Late st Contact Info) Description 01/15/2024 Telephone General Internal Medicine [facility] 200 [place] [address] Missy Murillo MD 200 [place] [address] Appointment Allergies Active Allergy Reactions Criticality Noted Date Comments Venlafaxine Hydrochloride Itching 06/22/2013 [place] Flavor Hives 04/24/2023 Sulfa Antibiotics Conjunctivitis 05/01/2000 [...] (Temovate)Indication s:SLE (systemic lupus erythematosus related syndrome) ([facility]) APPLY TO LUPUS ON THE BODY TWICE DAILY NEEDED FOR FLARES. 60 g 1 06/04/2022 Active Docusate Sodium 100 MG Oral Capsule (Colace) TAKE 1 SOFTGEL TWICE A DAY Strength: 100 mg 180 Capsule 2 11/08/2022 Active Metoprolol Succinate ER 25 MG Oral Tablet Extended Release 24 Hour (toPROL XL)Indications:Heart failure, systolic, due to CAD ([facility]),HTN, goal below 140/90 Take 1 Tablet [...] failure secondary to coronary artery disease, chronic ([facility]) Take 1 Tablet by mouth in the [...] Solution (Astelin)Indications :Chronic frontal sinusitis Administer 1 [place] into nostril in the morning and 1 [place] before bedtime. 30 mL 12 01/15/2024 Active Meclizine HCl 12.5 MG Oral Tablet (Antivert)Indication s:Vertigo Take 1 Tablet by mouth 3 times a day as needed for Dizziness. 40 Tablet 1 01/15/2024 Active Hospital, Clinic, or Other Facility Administered Medication Ordered Dose Route Frequency Start Date End Date Status denosumab (PROLIA) subcut inj 60 mgIndications:Senile osteoporosis 60 mg SC [id number] 04/15/2020 Active documented as of this encounter [...] followed by Dr [facility] [place] [facility] History of stroke Overview: small lacunae in Rt basal ganaglia unknown duration documented as of this encounter (statuses as of 01/15/2024) Resolved Problems Problem Noted Date Diagnosed Date Resolved Date Generalized edema 06/06/2021 11/22/2023 Heart failure, systolic, due to CAD 07/23/2017 06/27/2018 Chest pain 06/30/2014 08/08/2015 Atrial thrombosis 06/16/2012 07/15/2012 Anticoagulation management encounter 06/02/2012 06/02/2012 [facility] current use of ant icoagulant therapy 06/02/2012 06/02/2012 Overview: ICD-10 update of inactive term Heart failure due to valvular disease 06/02/2012 06/02/2012 [facility] current use of ant icoagulant therapy 06/02/2012 [...] mRNA, LNP-s, No Pre serve, 2-Dose Series ([employer]) 08/10/2021,02/21/2021,01/31/2021 COVID-19, LNP-s, No Preserve , Brennan-sucrose, [...] Telephone Encounter - Gregorio Pinzon OSA - 01/15/2024 11:59 AM EST Please assist pt to schedule an appointment for the balance center documented in this encounter Plan of Treatment Upcoming Encounters Date Type Department Care Team (Late st Contact Info) Description 01/20/2024 3:30 PM EST Cardiac Studies Cardiac Studies, [address] [place] [address] 02/12/2024 12:00 PM EDT Office Visit General Internal Medicine [facility] [place] [address] [place] [address] Missy Murillo MD [address] [facility] [place] [address] 02/20/2024 7:00 AM EDT Laboratory Laboratory [facility] [place] [address] [place] [phone] [place] [facility] [address] [facility] [place] [address] 03/06/2024 11:20 AM EDT Office Visit Dermatology [facility] [place] [address] [place] [address] Dina Pearson PA-C 200 [facility] [place] [phone] 03/10/2024 9:40 AM EDT Office Visit General Internal Medicine [facility] [place] [address] [place] [address] Missy Murillo MD 200 [facility] [place] [address] 05/28/2024 11:40 AM EDT Office Visit [facility] [place] [address] Lelo Wynn PA-C [address] [place] [address] 06/22/2024 8:30 AM EDT Office Visit Rheumatology [facility] [email or web address] [place], [place] [address] tSuart Pineda CRNP [address] [place], [place] [address] Health Maintenance Due Date Last Done Comments Depression Screening 04/02/2024 04/02/2023 GFR 09/30/2024 09/30/2023, 060 06/2023, 01/16/2023, Additional history exists TSH 09/30/2024 [...] D LEVEL ONCE IN A LIFETIME-USE SMARTSET# [id number] Completed 09/30/2023, 08/31/2022, 11/09/2020, Additional history exists [...] Advance Directives occurred with: Patient Care Teams Scrum Product Owner Relationship Specialty Start Date End Date Missy Murillo MD 200 [place] [address] PCP - General Internal Medicine 12/27/23 documented as of this encounter
--- OUTSIDE RECORDS SUMMARY | 2024-02-21 01:32 | External Medical Summary | Summary of Care ---
Author Name Unknown Organization [facility] Address [address] [facility] [place] [address] Phone [phone] Care Team Providers Care Dry Boss Name Role Phone Missy Murillo MD Primary Care Provider [phone] Reason for Visit * Reason Onset Date Comments Advice 01/13/2024 Encounter Details Date Type Department Care Team (Late st Contact Info) Description 01/13/[address] [facility] [address] [place] [address] Dc Diamond DO [address] [place] [address] Advice Allergies Active Allergy Reactions Criticality Noted Date Comments Venlafaxine Hydrochloride Itching 06/22/2013 [place] Flavor Hives 04/24/2023 Sulfa Antibiotics Conjunctivitis 05/01/2000 Nonimmunologic sxs documented as of this encounter (statuses as of 01/13/2024) Medications Medication Sig Dispensed Refills Start Date [...] (Temovate)Indication s:SLE (systemic lupus erythematosus related syndrome) ([facility]) APPLY TO LUPUS ON THE BODY [...] EVERY DAY 90 Tablet 3 12/09/2023 Active amLODIPine Besylate 2.5 MG Oral Tablet (Norvasc)Indications :HTN, goal below 140/90 TAKE 1 TABLET BY [...] 2 weeks 2 Tablet 0 12/27/2023 Active Hospital, Clinic, or Other Facility Administered Medication Ordered Dose Route Frequency Start Date End Date Status denosumab (PROLIA) subcut inj 60 mgIndications:Senile osteoporosis 60 mg SC [id number] 04/15/2020 Active documented as of this encounter (statuses as of 01/13/2024) Active Problems Problem Noted Date Diagnosed Date [...] followed by Dr [facility] [place] [facility] History of stroke Overview: small lacunae in Rt basal ganaglia unknown duration documented as of this encounter (statuses as of 01/13/2024) Resolved Problems Problem Noted Date Diagnosed Date Resolved Date Generalized edema 06/06/2021 11/22/2023 Heart failure, systolic, due to CAD 07/23/2017 06/27/2018 Chest pain 06/30/2014 08/08/2015 Atrial thrombosis 06/16/2012 07/15/2012 Anticoagulation management encounter 06/02/2012 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 06/02/2012 06/02/2012 Overview: ICD-10 update of inactive term Heart failure due to valvular disease 06/02/2012 06/02/2012 alf current use of ant icoagulant therapy 06/02/2012 [...] as of this encounter (statuses as of 01/13/2024) Immunizations Name Administration Dates Next Due COVID-19 mRNA, LNP-s, No Pre serve, 2-Dose Series ([facility]) 08/10/2021,02/21/2021,01/31/2021 COVID-19, LNP-s, No Preserve , Brennan-sucrose, Ages 12+ (Pfizer) 04/27/2022 COVID-19, MRNA-LNP, 23-24, P F, 30 MCG/0.3 mL, 12 YRS AND ABOVE, IM ([facility]) 08/29/2023 Covid-19, Mrna, Lnp-s, Pf, B ivalent, 30 Mcg, IM, 12 yrs and above ([facility]) 08/31/2022 HepA Inact/HepB Recomb>=18yrs old 03/22/2022,,09/07/2021 PPD [...] encounter Miscellaneous Notes * Telephone Encounter - Joan Gomez LPN - 01/13/2024 2:56 PM EST Received a call from [facility] at ER- patient is currently there for dizziness and left ear feels clogged. Discussed with Dr. Diamond: he advised to r/o vascular issues. Her last appt was 01/06/2024 ear exam was WNL. documented in this encounter Plan of Treatment Upcoming Encounters Date Type Department Care Team (Late st Contact Info) Description 01/20/2024 3:30 PM EST Cardiac Studies Cardiac Studies, [facility] 132 [facility] [place] [address] 02/12/2024 12:00 PM EDT Office Visit General Internal Medicine [facility] [address] [place] [address] Missy Murillo MD [address] [facility] [place] [address] 02/20/2024 7:00 AM EDT Laboratory Laboratory [facility] [place] [address] [place] [address] [place] [phone] [facility] [address] [facility] [place] [address] 03/06/2024 11:20 AM EDT Office Visit Dermatology [facility] [address] [place] [address] [address] Dina Pearson PA-C [facility] [place] [phone] 03/10/2024 9:40 AM EDT Office Visit General Internal Medicine [facility] [address] [place] [address] Missy Murillo MD 200 [facility] [place] [facility] [place] [address] 05/28/2024 11:40 AM EDT Office Visit Otol[facility]ology [facility] [address] [place] [address] Lelo Wynn PA-C [address] [place] [address] 06/22/2024 8:30 AM EDT Office Visit Rheumatology [facility] [address] [place] [address] Stuart Pineda CRNP [address] [employer] [place], [place] [address] Health Maintenance Due Date Last Done Comments [...] D LEVEL ONCE IN A LIFETIME-USE SMARTSET# [id number] Completed 09/30/2023, 08/31/2022, 11/09/2020, Additional history exists [...] Advance Directives occurred with: Patient Care Teams Dry Boss Relationship Specialty Start Date End Date Missy Murillo MD [address] [place] [address] PCP - General Internal Medicine 12/27/23 documented as of this encounter
--- OUTSIDE RECORDS SUMMARY | 2024-02-21 01:32 | External Medical Summary | Summary of Care ---
Author Name Unknown Organization [facility] Address [address] [facility] [place] [address] Phone [phone] Care Team Providers Care Pier Worker Name Role Phone Missy Murillo MD Primary Care Provider [phone] Reason for Visit * Reason Onset Date Comments Appointment 01/14/2024 TO GO TO [facility] - FOR EVAL OF RECENT BOUT OF VERTIGO Encounter Details Date Type Department Care Team (Late st Contact Info) Description 01/14/2024 Telephone Otolaryngology [facility] [address] [place] [address] Dc Diamond DO [address] [place] [address] Appointment (TO GO TO [facility]... Allergies Active Allergy Reactions Criticality Noted Date Comments Venlafaxine Hydrochloride Itching 06/22/2013 [place] Flavor Hives 04/24/2023 Sulfa Antibiotics Conjunctivitis 05/01/2000 Nonimmunologic sxs documented as of this encounter (statuses as of 01/14/2024) Medications Medication Sig Dispensed Refills Start Date [...] (systemic lupus erythematosus related syndrome) ([facility]) APPLY TO LUPUS ON THE BODY TWICE [...] inj 60 mgIndications:Senile osteoporosis 60 mg SC [id number] 04/15/2020 Active documented as of this encounter (statuses as of 01/14/2024) Active Problems Problem Noted Date Diagnosed Date [...] followed by [facility] History of stroke Overview: small lacunae in Rt basal ganaglia unknown duration documented as of this encounter (statuses as of 01/14/2024) Resolved Problems Problem Noted Date Diagnosed Date Resolved Date Generalized edema 06/06/2021 11/22/2023 Heart failure, systolic, due to CAD 07/23/2017 06/27/2018 Chest pain 06/30/2014 08/08/2015 Atrial thrombosis 06/16/2012 07/15/2012 Anticoagulation management encounter 06/02/2012 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/2012 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 current use of ant icoagulant therapy 06/02/2012 06/02/2012 Overview: ICD-10 update of inactive term Heart failure due to valvular disease 06/02/2012 06/02/2012 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 current use of ant icoagulant therapy 06/02/2012 [...] as of this encounter (statuses as of 01/14/2024) Immunizations Name Administration Dates Next Due COVID-19 mRNA, LNP-s, No Pre serve, 2-Dose Series ([employer]) 08/10/2021,02/21/2021,01/31/2021 COVID-19, LNP-s, No Preserve , Brennan-sucrose, Ages 12+ ([employer]) 04/27/2022 COVID-19, MRNA-LNP, 23-24, P F, 30 MCG/0.3 mL, 12 YRS AND ABOVE, IM ([employer]) 08/29/2023 Covid-19, Mrna, Lnp-s, Pf, B ivalent, 30 Mcg, IM, 12 yrs and above ([employer]) 08/31/2022 HepA Inact/HepB Recomb>=18yrs old 03/22/2022,,09/07/2021 PPD [...] encounter Miscellaneous Notes * Telephone Encounter - Callie Callejas LPN - 01/14/2024 8:33 AM EST Patient's called reporting that his was in the ED yesterday vertigo and was told to f/u with Dr. Diamond for fluid in ear. Patient's said that all of the records were to be faxed yesterday regarding the visit at the ED at [facility]. Calling [facility] to have records faxed. Per Dr. Diamond: Next available - has appt in May. [facility] [place] [facility] evaluation. Spoke with the and offered the [facility] in [place] for review of issue with Vertigo.To keep her appt with ENT in May. He will call the [facility] to schedule appt. documented in this encounter Plan of Treatment Upcoming Encounters Date Type Department Care Team (Late st Contact Info) Description 01/15/2024 11:00 AM EST Office Visit General Internal Medicine [facility] [address] [place] [id number] Missy Murillo MD [address] [place] [address] 01/20/2024 3:30 PM EST Cardiac Studies Cardiac Studies, [facility] [address] [facility] [place] [address] 02/12/2024 12:00 PM EDT Office Visit General Internal Medicine [facility] [address] [place] [address] Missy Murillo MD [address] [place] [address] 02/20/2024 7:00 AM EDT Laboratory Laboratory [facility] [address] [place] [id number] [place] [facility] [address] [place] [address] 03/06/2024 11:20 AM EDT Office Visit Dermatology [facility] [address] [place] [address] Dina Pearson PA-C [address] [facility] [place] [phone] 03/10/2024 9:40 AM EDT Office Visit General Internal Medicine [facility] [address] [place] [address] Missy Murillo MD [address] [facility] [place] [address] 05/28/2024 11:40 AM EDT Office Visit [facility]ol[facility]ology [facility] [address] [facility] [place] [address] Lelo Wynn PA-C [address] [place] [address] 06/22/2024 8:30 AM EDT Office Visit Rheumatology [address] [place] [address] Stuart Pineda CRNP [address] [place] [address] [place], [place] [address] Health Maintenance Due Date Last Done Comments [...] D LEVEL ONCE IN A LIFETIME-USE SMARTSET# [id number] Completed 09/30/2023, 08/31/2022, 11/09/2020, Additional history exists [...] Advance Directives occurred with: Patient Care Teams Pier Worker Relationship Specialty Start Date End Date Missy Murillo MD [address] [place] [address] PCP - General Internal Medicine 12/27/23 documented as of this encounter
--- OUTSIDE RECORDS SUMMARY | 2024-02-21 01:32 | External Medical Summary | Summary of Care ---
Author Name Unknown Organization [facility] Address [address] [place] [address] Phone [phone] Care Team Providers Care Furnace Mason Name Role Phone Missy Murillo MD Primary Care Provider Reason for Referral * Evaluate & Treat - Unlimited Visits (Within 10 days (routine)) - Pending Review Specialty Diagnoses / Procedures Referred By Mario carrera Referred To Contact Audiology Diagnoses Vertigo Missy Murillo MD [address] [place] [address] Referral ID Status Reason Start Date Expiration Date Visits Requested Visits Authorized [id number] Pending Review Specialty Services Required 01/15/2024 [id number] Question Answer Referral Priority Within 10 days (routine) Where should this appointment be scheduled? [facility] Is this order intended for the [facility] at [facility] in [place], [place] Yes Along with the dizziness, has there been a sudden change in hearing or tinnitus within the last two weeks? Yes Is the dizziness triggered with rolling over in bed and lasting seconds? Yes Is the dizziness motion-related, spontaneous (non-predictable) or both? Motion-related Comments Referral to: Otolaryngology Vestibular and [facility] For services that may include: 1. Audiologic and vestibular testing 2. Otolaryngology consultation 3. Vestibular Rehabilitation [Physical Therapy] evaluation and treatment Reason for Visit * Reason Comments Emergency Department Follow-Up [facility] ER --needs referral for balance center in [place] * Precert (Within 10 days (routine)) - Authorized Specialty Diagnoses / Procedures Referred By Contac t Referred To Contact Cardiac Studies Diagnoses 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, chronic (HCC) Presence of stent in LAD coronary artery HTN, goal below 140/90 Ischemic cardiomyopathy Procedures ECHO, COMPLETE (2D), TRANS-THORACIC Janet Ziegler MD [address] [place] [address] Referral ID Status Reason Start Date Expiration Date V isits Requested Visits Authorized [id number] Authorized Precert 01/01/2024 03/01/2024 [id number] Encounter Details Date Type Department Care Team (Latest Contact Info) Description 01/15/2024 11:00 AM EST Office Visit General Internal Medicine [facility] [place] [address] [facility] [place] [address] Missy Murillo MD [address] [place] [address] Vertigo*; Lightheadedness; Chronic frontal sinusitis; SLE (systemic lupus erythematosus related syndrome) ([facility]); Slow transit constipation; SIADH (syndrome of inappropriate ADH production) ([facility]); Senile osteoporosis; Retinal artery occlusion; Reactive hypoglycemia; Raynaud's disease without gangrene; Orthostatic hypotension; Presence of stent in LAD coronary artery; Neutropenia, unspecified type ([facility]); Microcalcifications of the breast; Leukopenia, unspecified type; Immunocompromised state ([facility]); Ischemic cardiomyopathy; HTN, goal below 140/90; History of stroke; History of ST elevation myocardial infarction (STEMI); TOVA (generalized anxiety disorder); Dyslipidemia, goal LDL below 70; 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, chronic (HCC); Chronic nonseasonal allergic rhinitis due to pollen; Acquired hypothyroidism; Status post left hip replacement Allergies Active Allergy Reactions Criticality Noted Date [...] 21 Active Vitamin D (Cholecalciferol) 50 MCG (1999 [...] (Temovate)Indicati ons:SLE (systemic lupus erythematosus related syndrome) ([facility]) APPLY TO LUPUS ON THE BODY TWICE DAILY NEEDED FOR FLARES. 60 g 1 06/04/20 22 Active Docusate Sodium 100 MG Oral Capsule (Colace) TAKE 1 SOFTGEL TWICE A DAY Strength: 100 mg 180 Capsule 2 11/08/20 22 Active Metoprolol Succinate ER 25 MG Oral Tablet Extended Release 24 Hour (toPROL XL)Indications:Hea rt failure, systolic, due to CAD (HCC),HTN, goal below 140/90 Take 1 Tablet by mouth in the morning. 90 Tablet 3 02/12/20 23 Active Levothyroxine Sodium 112 MCG Oral Tablet [...] DAY 90 Tablet 3 12/09/19 24 Active traMADol HCl 50 MG Oral Tablet (Ultram)Indication s:Non-recurrent acute suppurative otitis media of left ear with spontaneous rupture of tympanic membrane Take 1 Tablet by mouth 2 times a day as needed for Pain, Moderate or Pain, Severe. 20 Tablet 0 12/27/19 24 Active Fluconazole 150 MG Oral Tablet (Diflucan)Indicati ons:Candidal vulvovaginitis Take 1 pill Today and repeat in 2 weeks 2 Tablet 0 12/27/19 24 Active amLODIPine Besylate 2.5 MG Oral Tablet (Norvasc)Indicatio ns:HTN, goal below 140/90 Take 0.5 Tablets by mouth in the morning. If BP still low on 3/4 hold until directed. 0 01/15/20 24 Active predniSONE 10 MG Oral Tablet (Deltasone)Indicat ions:Vertigo,Chron ic frontal sinusitis Take 4 tabs for 3 days, 3 tabs for 3 days, 2 tabs for 2 days 1 tab for 2 days 30 Tablet 0 01/15/20 24 Active Azelastine HCl 0.1 % Nasal Solution (Astelin)Indicatio ns:Chronic frontal sinusitis Administer 1 [place] into nostril in the morning and 1 [place] before bedtime. 30 mL 12 01/15/20 24 Active Meclizine HCl 12.5 MG Oral Tablet (Antivert)Indicati ons:Vertigo Take 1 Tablet by mouth 3 times a day as needed for Dizziness. 40 Tablet 1 01/15/20 24 Active amLODIPine Besylate 2.5 MG Oral Tablet (Norvasc)Indicatio ns:HTN, goal below 140/90 TAKE 1 TABLET BY MOUTH EVERY DAY 90 Tablet 3 12/09/19 24 024 Discontinued Meclizine HCl 25 MG Oral Tablet (Antivert) Take 1 Tablet by mouth 3 times a day as needed for Dizziness. 0 01/13/20 24 024 Discontinued(Me dication/Dose Changed) Hospital, Clinic, or Other Facility Administered Medication Ordered Dose Route Frequency Start Date End Date Status denosumab (PROLIA) subcut inj 60 mgIndications:Senile osteoporosis 60 mg SC [id number] 04/15/2020 Active documented as of this encounter [...] followed by Dr [facility] [place] [facility] History of stroke Overview: small [...] failure due to valvular disease 06/02/2012 06/02/2012 correction current use of ant [...] mRNA, LNP-s, No Pre serve, 2-Dose Series ([employer]) 08/10/2021,02/21/2021,01/31/2021 COVID-19, LNP-s, No Preserve , Brennan-sucrose, Ages 12+ ([employer]) 04/27/2022 COVID-19, MRNA-LNP, 23-24, P F, 30 MCG/0.3 mL, 12 YRS AND ABOVE, IM ([employer]) 08/29/2023 Covid-19, Mrna, Lnp-s, Pf, B ivalent, 30 Mcg, IM, 12 yrs and above ([employer]) 08/31/2022 HepA Inact/HepB Recomb>=18yrs old 03/22/2022,,09/07/2021 PPD [...] Sign Reading Time Taken Comments Blood Pressure 112/70 01/15/2024 11:03 AM EST Pulse 71 01/15/2024 11:03 AM EST Temperature 35.9 C (96.7 F) 01/15/2024 11:[address] Respiratory Rate - - Oxygen Saturation 99% 01/15/2024 11:03 AM EST Inhaled Oxygen Concentration - - Weight 40.9 kg (90 lb 3.2 oz) 01/15/2024 11:03 A M EST Height - - Body Mass Index 17.62 01/06/2024 9:53 AM EST documented in this encounter Progress Notes * Missy Murillo MD - 01/15/2024 11:22 AM EST SUBJECTIVE: Leyla Gaona is a 78 year old female. Chief Complaint Patient presents with Emergency Department Follow-Up [facility] ER 01/13/24--needs referral for balance center in [place] HPI: 78 YOF with PMH of CAD with his of NSTMI, HTN, recurrent retinal artery occlusion, hypothyroidism, stroke , hyperlipidemia, lupus, SIADH, allergic rhinitis, DDD of lumbar spine presents here for ER follow up. Pt went to ER 2 days ago with worsening dizziness, left ear pain, jaw pain and lightheadedness, called ENT who recommended go ER since her ER looked okay in recheck appointment. Pain ER she was foundto have slightly high blood pressure orthostasis though but rest of the blood work were stable including mild anemia and hyponatremia. CT of the head and MRI of the brain without acute finding including no significant fluid builds up in sinuses and treated with meclizine and recommended to have follow up with ENT. Since discharge feeling better . Hospital records reviewed and updated. New issue now -feels meclizine been helping and been taking 3 times a day which she is making some drowsiness butthat is better than dizziness. -Talking to her it looks like she has been feeling both vertigo and lightheadedness with change in position. Blood pressure has been low and really low today despite of not taking amlodipine yet. -patient is very frustrated and anxious of not getting his thinks resolved and ENT not ready closely following her. From last note of Dr. Vasquez I noticed that her ear examination had improved Patient Active Problem List Diagnosis Code Acquired hypothyroidism E03.9 Chronic nonseasonal allergic rhinitis due to pollen J30.89 ADVANCE DIRECTIVE INFORMATION SIADH (syndrome of inappropriate ADH production) ([facility]) E22.2 SLE (systemic lupus erythematosus related syndrome) ([facility]) M32.9 Encounter for long-term (current) use of [...] secondary to coronary artery disease, chronic (HCC) I50.32, I25.10 TOVA (generalized anxiety disorder) F41.1 Cachectic (HCC) R64 Neutropenia (HCC) D70.9 Immunocompromised state (HCC) D84.9 Microcalcifications of the breast R92.0 Ischemic cardiomyopathy I25.5 Status post left hip replacement Z96.642 Leukopenia D72.819 Current Outpatient Medications Medication Sig Dispense Refill [...] BY MOUTH EVERY DAY 90 Tablet 3 amLODIPine Besylate 2.5 MG Oral Tablet (Norvasc) TAKE 1 TABLET BY MOUTH EVERY DAY 90 Tablet 3 traMADol HCl 50 MG Oral Tablet (Ultram) Take 1 Tablet by mouth 2 times a day as needed for Pain, Moderate or Pain, Severe. 20 Tablet 0 Fluconazole 150 MG Oral Tablet (Diflucan) Take 1 pill Today and repeat in 2 weeks 2 Tablet 0 Meclizine HCl 25 MG Oral Tablet (Antivert) Take 1 Tablet by mouth 3 times a day as needed for Dizziness. Current Facility-Administered Medications Medication Dose Route Frequency Provider Last Rate Last Admin denosumab (PROLIA) subcut inj 60 mg 60 mg Subcutaneous Q6 Months Tha Newton MD 60 mg at 04/15/20 1353 The patient's medication list was reviewed and updated as needed. Past Medical History: Diagnosis Date Allergic rhinitis Displacement of lumbar intervertebral disc without myelopathy HTN, goal below 140/90 Hypothyroidism 1970 Leukocytopenia, unspecified 02/27/2008 Retinal artery occlusion being followed by Dr [facility] [place] [facility] estevan Huan LOPEZ (syndrome of inappropriate ADH production) (HCC) Stroke (HCC) small lacunae in Rt basal ganaglia unknown duration Systemic lupus erythematosus (HCC) 1979 fatigue, low WBC, rash Social History Socioeconomic History Marital status: Spouse name: Jose Alberto Number of children: 2 Occupational History 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 Employer: [employer] Tobacco Use Smoking status: Former Current packs/day: 0.00 Average packs/day: 0.5 packs/day for 15.0 years (7.5 ttl pk-yrs) Types: Cigarettes Start date: 02/16/1971 Quit date: 02/16/1986 Years since quittin.9 Smokeless tobacco: Never Tobacco comments: Smoked off and on during the 15 year period Passive smoke exposure as child Both Parents smoked None currently Vaping Use Vaping Use: Never used Substance and Sexual Activity Alcohol use: Yes Comment: Rare Drug use: No Sexual activity: Not Currently Partners: Male control/protection: Surgical Comment: Pt had Hysterectomy Social Determinants of Health Food Insecurity: No Food Insecurity (02/12/2020) Hunger Vital Sign Worried About Running Out of Food in the Last Year: Never true Ran Out of Food in the Last Year: Never true Review of patient's allergies indicates: Allergen Reactions Effexor [Venlafaxine Hydrochloride] Itching Rico Flavor Hives Sulfa Antibiotics Conjunctivitis Nonimmunologic sxs Family History Problem Relation Age of Onset Uterine cancer Mother Thyroid cancer Mother Lymphoma Mother Heart attack Father 50s Endometrial cancer Daughter Breast Cancer No significant family history Family Status Relation Status Mo at age 70 s CA lymphoma Fa at age 60 s PR Augustin Alive Augustin Alive No history (Not Specified) REVIEW OF SYSTEMS: All 10 systems reviewed and negative except mentioned in HPI OBJECTIVE: BP 112/70 | Pulse 71 | Temp 35.9 C (96.7 F) (Tympanic) | Wt 40.9 kg (90 lb 3.2 oz) | SpO2 99% |BMI 17.62 kg/m | BSA 1.32 m PHYSICAL EXAM: General: alert, healthy, anxious, malnourished, and mild distress Head: Normocephalic, No masses, lesions, tenderness or abnormalities, tenderness in both TMJ in front of the ear left worse than right Ears: External ears normal, Canals clear, TM's right but scar and left with healed rupture with scarring and maybe subtle fluid in middle ear Nose: no mucosal erythema, clear rhinorrhea, mucosal edema, mucosal erythema Oropharynx: no exudate, lips, buccal mucosa, and tongue normal, and mucous membranes are moist Neck: supple, no adenopathy, no bruits, thyroid normal size, non-tender, without nodularity Heart: regular rate & rhythm, no murmur, and no gallops Lungs: chest symmetric with normal AP diameter, no chest deformities noted, no chest wall tenderness, lungs clear to auscultation Extremities: less than 2 second capillary refill, no joint deformities, effusion, or inflammation ASSESSMENT AND PLAN Vertigo (Primary) - [facility] REFERRAL OP - predniSONE 10 MG Oral Tablet (Deltasone); Take 4 tabs for 3 days, 3 tabs for 3 days, 2 tabs for 2days 1 tab for 2 days - Meclizine HCl 12.5 MG Oral Tablet (Antivert); Take 1 Tablet by mouth 3 times a day as needed for Dizziness. Decreased. Asked patient not to take in the morning and afternoon if she does not needed Continue Zyrtec or Claritin and replace Flonase with azelastine Discussed taking time with changing position Lightheadedness Her symptoms is combination of lightheadedness and vertigo as well. Decrease amlodipine to half tablet and if her blood pressure still low in next appointment hold it Chronic frontal sinusitis - predniSONE 10 MG Oral Tablet (Deltasone); Take 4 tabs for 3 days, 3 tabs for 3 days, 2 tabs for 2days 1 tab for 2 days - Azelastine HCl 0.1 % Nasal Solution (Astelin); Administer 1 [place] into nostril in the morning and1 [place] before bedtime. SLE (systemic lupus erythematosus related syndrome) ([facility]) Slow transit constipation Stable SIADH (syndrome of inappropriate ADH production) ([facility]) Fluid restriction Senile osteoporosis Retinal artery occlusion Reactive hypoglycemia Raynaud's disease without gangrene Orthostatic hypotension Decrease amlodipine and hold if needed for persistent hypotension Presence of stent in LAD coronary artery Neutropenia, unspecified type ([facility]) Stable Microcalcifications of the breast Leukopenia, unspecified type Immunocompromised state ([facility]) Ischemic cardiomyopathy HTN, goal below 140/90 Blood pressure is rather low now History of stroke History of ST elevation myocardial infarction (STEMI) TOVA (generalized anxiety disorder) Dyslipidemia, goal LDL below 70 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, chronic (HCC) Chronic nonseasonal allergic rhinitis due to pollen Acquired hypothyroidism Status post left hip replacement More than 40 min ( 44 ) spent on reviewing records, previous notes , labs and face to face counselling on different aspect of disease and formulating plan Missy Murillo MD 11:22 AM 01/15/2024 documented in this encounter Nursing Notes * Lucy Das LPN - 01/15/2024 11:03 AM EST Chief Complaint Patient presents with Emergency Department Follow-Up [facility] ER 01/13/24--needs referral for [facility] in [place] documented in this encounter Plan of Treatment Upcoming Encounters Date Type Department Care Team (Late st Contact Info) Description 01/20/2024 3:30 PM EST Cardiac Studies Cardiac Studies, [facility] [address] [facility] [place] [address] 02/12/2024 12:00 PM EDT Office Visit General Internal Medicine [facility] [address] [place] [address] Missy Murillo MD [address] [facility] [place] [address] 02/20/2024 7:00 AM EDT Laboratory Laboratory [facility] [place] [address] [phone] [facility] [address] [place] [address] [id number] 03/06/2024 11:20 AM EDT Office Visit Dermatology [facility] [place] [address] [address] Dina Pearson PA-C [address] [facility] [place] [phone] 03/10/2024 9:40 AM EDT Office Visit General Internal Medicine [facility] [place] [address] [facility] [place] [address] Missy Murillo MD [address] [facility] [place] [address] 05/28/2024 11:40 AM EDT Office Visit Otolaryngology [facility] [address] [place] [address] eLlo Wynn PA-C [address] [place] [address] 06/22/2024 8:30 AM EDT Office Visit Rheumatology [place] [id number] [place] [address] Stuart Pineda CRNP [address] [place] [address] Scheduled Referrals Name Type Priority Associated Diagnoses Orde r Schedule [facility] REFERRAL OP Referral Within 10 days (routine) Vertigo Ordered: 01/15/2024 Health Maintenance Due Date Last Done Comments [...] D LEVEL ONCE IN A LIFETIME-USE SMARTSET# [id number] Completed 09/30/2023, 08/31/2022, 11/09/2020, Additional history exists [...] Diagnoses Diagnosis Vertigo- Primary Dizziness and giddiness Lightheadedness Dizziness and giddiness Chronic frontal sinusitis SLE (systemic lupus erythematosus related syndrome) (HCC) Systemic lupus erythematosus Slow transit constipation SIADH (syndrome of inappropriate ADH production) (HCC) Other disorders of neurohypophysis Senile osteoporosis Retinal artery occlusion Retinal vascular occlusion, unspecified Reactive hypoglycemia Hypoglycemia, unspecified Raynaud's disease without gangrene Orthostatic hypotension Presence of stent in LAD coronary artery Postsurgical percutaneous transluminal coronary angioplasty status Neutropenia, unspecified type (HCC) Microcalcifications of the breast Mammographic microcalcification Leukopenia, unspecified type Immunocompromised state (HCC) Unspecified immunity deficiency Ischemic cardiomyopathy Other specified forms of chronic ischemic heart disease HTN, goal below 140/90 Unspecified essential hypertension History of stroke Transient ischemic attack (TIA), and cerebral infarction without residual deficits History of ST elevation myocardial infarction (STEMI) Old myocardial infarction TOVA (generalized anxiety disorder) Generalized anxiety disorder Dyslipidemia, goal LDL below 70 Other and unspecified hyperlipidemia 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, chronic (HCC) Chronic nonseasonal allergic rhinitis due to pollen Acquired hypothyroidism Unspecified hypothyroidism Status post left hip replacement Hip joint replacement by other means documented in this encounter Advance Directives Latest Code Status on File Code Status Date Activated Date Inactivated Comments Full Code 12/11/2022 8:30 AM 12/11/2022 4:54 PM This order reflects the patients wishes and were consensually agreed upon. Question Answer Comments Discussion of Advance Directives occurred with: Patient Care Teams Furnace Mason Relationship Specialty Start Date End Date Missy Murillo MD [address] [place] [address] PCP - General Internal Medicine 12/27/23 documented as of this encounter"
[2024-02-21 05:39] LABS: Appearance Urine Clear (Clear); Bacteria Urine Automated Negative (Negative); Bilirubin Urine Negative (Negative); Blood Urine Negative (Negative); Color Urine Yellow; Glucose Urine UA Negative (Negative); Ketones Urine Trace (Negative); Leukocyte Esterase Urine Negative (Negative); Nitrite Urine Negative (Negative); RBC Urine Automated 0-4 /hpf (0-4); Specific Gravity Urine 1.012 (1.000-1.030); Urobilinogen Urine Negative (Negative)
[2024-02-21 05:52] LABS: Protein Urine Trace (Negative)
[2024-02-21] MEDS: LEVOTHYROXINE SODIUM 112 MCG TABLET PO SCH (05:52)
[2024-02-21 07:39] LABS: Hematocrit (blood only) 34.3 % (37.0-47.0); Hemoglobin 11.7 g/dl (12.0-16.0); Mean Corpuscular Hemoglobin 27.9 pg (25.0-34.0); Mean Corpuscular Hgb Conc 34.1 g/dL (32.0-36.0); Mean Corpuscular Volume 81.9 fL (80.0-100.0); Mean Platelet Volume 8.6 fL (9.4-12.4); Platelet Count 418 K/uL (130-400); RDW Coefficient of Variation 14.4 % (11.5-14.5); RDW Standard Deviation 42.2 fL (36.4-46.3); Red Blood Count 4.19 M/uL (4.20-5.40); White Blood Count 9.74 K/ul (4.8-10.8)
[2024-02-21 07:55] LABS: Calcium 8.4 mg/dl (8.6-10.3); Creatinine Clr Calc Pharmacy 48.4 ml/min; Est GFR (African American) 102.6 ml/min; Est GFR (Non-African American) 88.5 ml/min
[2024-02-21] MEDS ORDERED: PANTOprazole 40 MG TAB PO SCH (09:00)
--- NOTE | 2024-02-21 09:48 | Gastrointestinal Consultation ---
Date of Consultation February 21, 2024 Assessment & Plan (1) Dysphagia: (2) Heartburn: Plan Patient with a sudden onset of dysphagia this past weekend that has effected her oral intake. Discussed case with Dr. Wilkinson. - set up patient for an EGD for today since she has been NPO. - recommend continuation of protonix 40mg IV BID. Supervising Physician Co-Signing Physician Notes Agree with LEXIS Bower as above Abd: Soft, NT, ND, +BS Continue current therapy and supportive care Proceed with EGD now History of Present Illness Reason for Consultation: dysphagia Requesting Physician: Paola Novak PA-C Attending Physician: Sylvie Bales MD History of Present Illness Patient is a 78 year old female with a past medical history of SIADH, hypothyroidism, hyperlipidemia, history of reactive hypoglycemia, history of allergic rhinitis, chronic diastolic CHF, history of CAD, status post stent to LAD, history of hypertension, legal blindness, history of retinal artery occlusion, orthostatic hypotension, Raynaud disease, constipation, osteoporosis, SLE, generalized anxiety disorder, cachectic state, chronic anemia, CVA, history of recurrent left hip dislocation( x 3 s/p surgery) who presented to the ED with complaints of weakness in the setting of poor oral intake. She had started with sudden dysphagia 5 days ago where foods and liquids seem to stick in her suprasternal area. She tells me that she typically has heartburn as an outpatient for which she uses tums but has been unable to use this recently due to her dysphagia. rest of GI ros are unremarkable. Spoke with patient's daughter Cathy at bedside who also helped provide history. Patient tells me she has never had an EGD in the past. Allergies Allergy/AdvReac Type Severity Reaction Status Date / Time venlafaxine Allergy Mild RASH Verified 02/02/23 17:38 Sulfa (Sulfonamide Allergy Unknown UNKNOWN Verified 02/02/23 17:38 Antibiotics) REACTION TO SULFA DRUGS tomato AdvReac Unknown Verified 02/02/23 17:38 Home Medications Medication Instructions Recorded Confirmed Type cholecalciferol (vitamin D3) 25 2,000 unit PO QAM 03/04/19 02/20/24 History mcg (1,000 unit) capsule (Vitamin D3) clobetasol 0.05 % shampoo 1 applic topical DIRECTED PRN 03/04/19 02/20/24 History for flare up of lupus docusate sodium 100 mg capsule 200 mg PO QAM 03/04/19 02/20/24 History (Colace) hydroxychloroquine 200 mg tablet 200 mg PO HS 03/04/19 02/20/24 History (Plaquenil) lactobacillus combination no.4 3 3,000 mmu cells PO QAM 03/04/19 02/20/24 History billion cell capsule (Probiotic) lisinopril 2.5 mg tablet 2.5 mg PO HS 08/14/22 02/20/24 History metoprolol succinate 25 mg 25 mg PO QAM 08/14/22 02/20/24 History tablet,extended release 24 hr clobetasol 0.05 % topical cream 1 applic topical BID PRN .FLARES 12/31/22 02/20/24 History clopidogrel 75 mg tablet 75 mg PO DAILY 12/31/22 02/20/24 History cyclosporine 0.05 % eye drops in a 1 drp OPB Q12H PRN Dry Eye(S) 12/31/22 02/20/24 History dropperette denosumab 60 mg/mL subcutaneous 60 mg subcut Q6M 12/31/22 02/20/24 History syringe (Prolia) fluticasone propionate 50 2 spray intranasal DAILY Allergy 12/31/22 02/20/24 History mcg/actuation nasal Symptoms spray,suspension furosemide 20 mg tablet 20 mg PO QAM 12/31/22 02/20/24 History multivitamin 1 tab PO DAILY 12/31/22 02/20/24 History nitroglycerin 0.4 mg sublingual 0.4 mg sublingual .DAILY/PRN PRN 12/31/22 02/20/24 History tablet Chest Pain tacrolimus 0.1 % topical ointment 1 applic topical BID PRN flare up 12/31/22 02/20/24 History of lupus zinc acetate 50 mg (zinc) capsule 50 mg PO QAM 12/31/22 02/20/24 History levothyroxine 100 mcg tablet 112 mcg PO DAILYBB 02/02/23 02/20/24 History (Synthroid) meclizine 25 mg tablet 25 mg PO TID PRN dizziness #14 tabs 01/13/24 02/20/24 Rx aspirin 81 mg tablet,delayed 81 mg PO QAM 02/20/24 02/20/24 History release atorvastatin 80 mg tablet 80 mg PO QAM 02/20/24 02/20/24 History azelastine 137 mcg (0.1 %) nasal 1 spray intranasal AMHS 02/20/24 02/20/24 History spray aerosol cetirizine 10 mg tablet 10 mg PO DAILY PRN rhinitis 02/20/24 02/20/24 History omeprazole 20 mg capsule,delayed 20 mg PO DAILYBB 02/20/24 02/20/24 History release polyethylene glycol 3350 17 34 g PO DAILY 02/20/24 02/20/24 History gram/dose oral powder (Miralax) prednisone 10 mg tablet See Rx Instructions .Route .COMPLEX 02/20/24 02/20/24 History prednisone 20 mg tablet 40 mg PO QAM 02/20/24 02/20/24 History sennosides 8.6 mg tablet (senna) 8.6 mg PO BID PRN Constipation 02/20/24 02/20/24 History tramadol 50 mg tablet 50 mg PO AMHS 02/20/24 02/20/24 History Patient History Medical History CAD (coronary artery disease) History of blood transfusion "with every surgery" Coronary artery disease s/p 5 stents in 2017 Raynaud's disease Diastolic heart failure EF 58%, follows with [facility] SIADH (syndrome of inappropriate ADH production) Degenerative disc disease Chronic back pain GERD (gastroesophageal reflux disease) diet controlled Hypothyroidism Hypoglycemia with associated syncope, last syncopal episode colonoscopy fasting 8 yrs ago On anticoagulant therapy Systemic lupus follows with [facility] 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 no longer sees a neurologist. Myocardial Infarction (~2016) follows with Dr Jean Baptiste Hypertension controlled, stable per pt Surgical History Hx of vaginal hysterectomy History of open reduction and internal fixation (ORIF) procedure right wrist History of total hip arthroplasty left History of esophagogastroduodenoscopy (EGD) History of colonoscopy History of cataract surgery bilateral History of tonsillectomy History of heart artery stent (~2016) x5 stents (at [facility]) History of cardiac cath (~2017) at [facility] -5 stents-2017 S/P lumbar fusion x2 Family History Other No family history of adverse response to anesthesia Social History Smoking Status: Former smoker Tobacco Type: Cigarettes Cigarettes Per Day: 6-8; Second Hand Exposure: No; Do You Dip or Chew Tobacco: No; Hx Alcohol Use: Yes Alcohol type: wine Hx Substance Use: No Preferred Language: Slovenian Communication Ability: Effective Communication Ability Comment: legally blind Visual Impairment: No Limitations Hearing Ability: Normal 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 Respiratory: normal respiratory effort, lungs clear to auscultation Cardiovascular: RRR, no murmur, no edema Gastrointestinal (Abdomen): normal bowel sounds, soft, nontender, no hepatosplenomegaly Psychiatric: Orientation: alert and oriented x 3 Affect: euthymic affect Results & Data Vital Signs (Past 12 Hours) Vital Signs Temp Pulse Resp BP Pulse Ox O2 Del Method 02/21/24 07:31 99.0 F 71 18 174/83 H 95 Room Air 02/21/24 04:01 72 167/83 H 02/21/24 00:18 74 179/91 H Coding Level of Care Code 46927 INT INP/OBS CARE 3/75MIN Diagnoses Dysphagia R13.10 Heartburn R12
--- NOTE | 2024-02-21 10:06 | Anesthesiology Consultation ---
Date of Service February 21, 2024 Assessment & Plan Chart Review Chart Review: Acceptable Risk for Surgery, Patient NOT seen in Pre Admission Testing and oil agent initiated Consults Requested none Proposed Anesthesia Anesthesia Type: MAC History Height/Weight Height: 5 ft 2 in Weight: 38.4 kg Allergies Allergy/AdvReac Type Severity Reaction Status Date / Time venlafaxine Allergy Mild RASH Verified 02/02/23 17:38 Sulfa (Sulfonamide Allergy Unknown UNKNOWN Verified 02/02/23 17:38 Antibiotics) REACTION TO SULFA DRUGS tomato AdvReac Unknown Verified 02/02/23 17:38 Medications Home Medications Medication Instructions Recorded Confirmed Last Taken cholecalciferol (vitamin D3) 25 2,000 unit PO QAM 03/04/19 02/20/24 02/19/24 mcg (1,000 unit) capsule (Vitamin D3) clobetasol 0.05 % shampoo 1 applic topical DIRECTED PRN 03/04/19 02/20/24 Unknown for flare up of lupus docusate sodium 100 mg capsule 200 mg PO QAM 03/04/19 02/20/24 02/19/24 (Colace) hydroxychloroquine 200 mg tablet 200 mg PO HS 03/04/19 02/20/24 02/19/24 (Plaquenil) lactobacillus combination no.4 3 3,000 mmu cells PO QAM 03/04/19 02/20/24 02/19/24 billion cell capsule (Probiotic) lisinopril 2.5 mg tablet 2.5 mg PO HS 08/14/22 02/20/24 02/19/24 metoprolol succinate 25 mg 25 mg PO QAM 08/14/22 02/20/24 02/19/24 tablet,extended release 24 hr clobetasol 0.05 % topical cream 1 applic topical BID PRN .FLARES 12/31/22 02/20/24 Unknown clopidogrel 75 mg tablet 75 mg PO DAILY 12/31/22 02/20/24 02/19/24 cyclosporine 0.05 % eye drops in a 1 drp OPB Q12H PRN Dry Eye(S) 12/31/22 02/20/24 Unknown dropperette denosumab 60 mg/mL subcutaneous 60 mg subcut Q6M 12/31/22 02/20/24 Unknown syringe (Prolia) fluticasone propionate 50 2 spray intranasal DAILY Allergy 12/31/22 02/20/24 02/19/24 mcg/actuation nasal Symptoms spray,suspension furosemide 20 mg tablet 20 mg PO QAM 12/31/22 02/20/24 02/19/24 multivitamin 1 tab PO DAILY 12/31/22 02/20/24 02/19/24 nitroglycerin 0.4 mg sublingual 0.4 mg sublingual .DAILY/PRN PRN 12/31/22 02/20/24 Unknown tablet Chest Pain tacrolimus 0.1 % topical ointment 1 applic topical BID PRN flare up 12/31/22 02/20/24 Unknown of lupus zinc acetate 50 mg (zinc) capsule 50 mg PO QAM 12/31/22 02/20/24 02/19/24 levothyroxine 100 mcg tablet 112 mcg PO DAILYBB 02/02/23 02/20/24 02/19/24 (Synthroid) meclizine 25 mg tablet 25 mg PO TID PRN dizziness #14 tabs 01/13/24 02/20/24 Unknown aspirin 81 mg tablet,delayed 81 mg PO QAM 02/20/24 02/20/24 02/19/24 release atorvastatin 80 mg tablet 80 mg PO QAM 02/20/24 02/20/24 02/19/24 azelastine 137 mcg (0.1 %) nasal 1 spray intranasal AMHS 02/20/24 02/20/24 Unknown spray aerosol cetirizine 10 mg tablet 10 mg PO DAILY PRN rhinitis 02/20/24 02/20/24 Unknown omeprazole 20 mg capsule,delayed 20 mg PO DAILYBB 02/20/24 02/20/24 02/19/24 release polyethylene glycol 3350 17 34 g PO DAILY 02/20/24 02/20/24 02/19/24 gram/dose oral powder (Miralax) prednisone 10 mg tablet See Rx Instructions .Route .COMPLEX 02/20/24 02/20/24 Unknown prednisone 20 mg tablet 40 mg PO QAM 02/20/24 02/20/24 02/19/24 sennosides 8.6 mg tablet (senna) 8.6 mg PO BID PRN Constipation 02/20/24 02/20/24 Unknown tramadol 50 mg tablet 50 mg PO AMHS 04/04/24 04/04/24 04/03/24 hs Active Medications Generic Name Dose Route Start Last Admin Trade Name Freq PRN Reason Stop Dose Admin Azelastine HCl 1 sprays 02/20/24 21:00 02/20/24 19:53 Azelastine Hcl 0.1% Nasal 200 Sprays/27,400 Mcg Btl NA 03/21/24 20:59 1 sprays AMHS KIRSTEN Administration Clopidogrel Bisulfate 75 mg 02/20/24 20:30 02/20/24 21:30 Clopidogrel Bisulfate 75 Mg Tab PO 03/21/24 20:29 75 mg DAILY KIRSTEN Administration Docusate Sodium 200 mg 02/20/24 17:49 02/20/24 19:51 Docusate Sodium 100 Mg Cap PO 03/21/24 17:48 200 mg QAM KIRSTEN Administration Fluticasone Propionate 2 sprays 02/20/24 17:49 02/20/24 19:54 Fluticasone Propionate Na Spr 16 Gm Btl NA 03/21/24 17:48 2 sprays DAILY KIRSTEN Administration Hydralazine HCl 5 mg 02/20/24 18:01 02/21/24 00:24 Hydralazine Hcl 20 Mg/Ml Vial IV 03/21/24 18:00 5 mg Q4H PRN Administration Hypertension Hydroxychloroquine Sulfate 200 mg 02/20/24 21:00 02/20/24 21:30 Hydroxychloroquine Sulfate 200 Mg Tab PO 03/21/24 20:59 200 mg HS KIRSTEN Administration Pantoprazole Sodium 40 mg/ 10 mls @ 5 mls/min 02/20/24 21:00 02/20/24 19:53 Syringe IV 03/21/24 20:59 5 mls/min BID KIRSTEN Administration Levothyroxine Sodium 112 mcg 02/21/24 06:30 02/21/24 05:52 Levothyroxine Sodium 112 Mcg Tablet PO 03/22/24 06:29 112 mcg DAILYBB KIRSTEN Administration Lisinopril 2.5 mg 02/20/24 21:00 02/20/24 21:29 Lisinopril 2.5 Mg Tab PO 03/21/24 20:59 2.5 mg HS KIRSTEN Administration Miscellaneous 1 each 02/21/24 00:00 02/21/24 09:36 Tacrolimus 0.1 % Ointment- Order Awaiting Action N/A 03/22/24 00:00 Not Given QS KIRSTEN Tramadol HCl 50 mg 02/20/24 21:00 02/20/24 20:23 Tramadol Hcl 50 Mg Tablet PO 03/21/24 20:59 50 mg AMHS KIRSTEN Administration Past Medical History Medical History CAD (coronary artery disease) History of blood transfusion "with every surgery" Coronary artery disease s/p 5 stents in 2017 Raynaud's disease Diastolic heart failure EF 58%, follows with [facility] cardio SIADH (syndrome of inappropriate ADH production) Degenerative disc disease Chronic back pain GERD (gastroesophageal reflux disease) diet controlled Hypothyroidism Hypoglycemia with associated syncope, last syncopal episode colonoscopy fasting 8 yrs ago On anticoagulant therapy Systemic lupus follows with [facility] Rheumatology 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 no longer sees a neurologist. Myocardial Infarction (~2016) follows with Dr Jean Baptiste Hypertension controlled, stable per pt Past Family History Family History Other No family history of adverse response to anesthesia Past Surgical History Surgical History Hx of vaginal hysterectomy History of open reduction and internal fixation (ORIF) procedure right wrist History of total hip arthroplasty left History of esophagogastroduodenoscopy (EGD) History of colonoscopy History of cataract surgery bilateral History of tonsillectomy History of heart artery stent (~2016) x5 stents (at [facility]) History of cardiac cath (~2016) at [facility] -5 stents-2017 S/P lumbar fusion x2 Social History Smoking Status: Former smoker tobacco type: cigarettes Smoking cigarettes per day: 6-8 Do You Dip or Chew Tobacco: No Hx Alcohol Use: Yes Alcohol type: wine alcohol intake frequency: a few times a week Hx Substance Use: No substance use type: does not use Physical Exam Vital Signs Last Vital Signs Temp 37.2 C 02/21/24 07:31 Pulse 71 02/21/24 07:31 Resp 18 02/21/24 07:31 BP 174/83 H 02/21/24 07:31 Pulse Ox 95 02/21/24 07:31 O2 Del Method Room Air 02/21/24 07:31 Testing Laboratory Results 02/21/24 06:42 02/21/24 06:42 PT 11.6 Seconds (9.0-12.0) 02/20/24 11:55 INR 1.1 (0.9-1.1) 02/20/24 11:55 APTT 22 Seconds (21-31) 02/20/24 11:55 Urine Color Yellow 02/21/24 04:15 Urine Appearance Clear (Clear) 02/21/24 04:15 Urine pH 8.0 (4.5-7.5) H 02/21/24 04:15 Ur Specific [place] 1.012 (1.000-1.030) 02/21/24 04:15 Urine Protein Trace (Negative) H 02/21/24 04:15 Urine Glucose (UA) Negative (Negative) 02/21/24 04:15 Urine Ketones Trace (Negative) H 02/21/24 04:15 Urine Nitrite Negative (Negative) 02/21/24 04:15 Ur Leukocyte Esterase Negative (Negative) 02/21/24 04:15 Urine WBC (Auto) 1-5 /hpf (0-5) 02/21/24 04:15 Urine RBC (Auto) 0-4 /hpf (0-4) 02/21/24 04:15 U Hyaline Cast (Auto) 1-5 /lpf (0-5) 02/21/24 04:15 U Epithel Cells (Auto) 5-10 /lpf (0-5) H 02/21/24 04:15 Urine Bacteria (Auto) Negative (Negative) 02/21/24 04:15 Electrocardiogram Date: 02/20/2420-Feb-2024 11:53:15 [facility]-EDSTAT ROUTINE RETRIEVAL Normal sinus rhythm Nonspecific T wave abnormality Abnormal ECG When compared with ECG of 13-JAN-2024 10:58, Nonspecific T wave abnormality now evident in Inferior leads T wave inversion now evident in Lateral leads QT has lengthened 25mm/s10mm/[id number] 243CID: 21Unconfirmed Vent. rate 69 BPM MA interval 140 ms QRS duration 90 ms QT/QTc 528/565 ms P Chest X-Ray Date: 02/20/24 XR chest 1V not portable CLINICAL HISTORY: weakness COMPARISON STUDY: Chest CT April 30, 2017. Chest radiograph April 09, 2023. FINDINGS: There is no pneumothorax or pleural effusion. No consolidation is identified to suggest pneumonia. No evidence for pulmonary edema. Cardiomediastinal silhouette is stable. Several old left rib fractures are incidentally noted. IMPRESSION: No acute cardiopulmonary findings. Echocardiogram Date: 10/15/17 EF: 58 LV Function: normal RWMA: + none Other Findings: + diastolic dysfunction (grade 2) Valvular Disease: + MR (mild to mod)
--- NOTE | 2024-02-21 10:37 | Hospitalist Progress Note ---
Date of Service February 21, 2024 Assessment & Plan (1) Adult failure to thrive: (2) Generalized weakness: (3) Fall: (4) Dysphagia: (5) GERD (gastroesophageal reflux disease): (6) SIADH (syndrome of inappropriate ADH production): (7) (HFpEF) heart failure with preserved ejection fraction: (8) Hypertension: (9) CAD (coronary artery disease): (10) Hypothyroidism: (11) Giant cell arteritis: (12) Raynaud's disease: Plan 78-year-old female with PMHx of SIADH, hypothyroidism, hyperlipidemia, history of allergic rhinitis, chronic diastolic CHF, history of CAD, status post stent to LAD, history of hypertension, legal blindness, history of retinal artery occlusion, orthostatic hypotension, Raynaud disease, constipation, osteoporosis, SLE, generalized anxiety disorder, cachectic state, chronic anemia, CVA, 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, appreciate recs Encourage po intake PT/OT Anemia Hgb around 11, previous baseline lower around 9 Possibly higher due to hemoconcentration in setting of dehydration (see below) AM anemia workup with iron studies, b12 and folate levels Supplement as needed based on the results Continue to monitor H/H Hyponatremia Appears chronic Sodium around 127-129 Pending AM urine osm and Na levels Consider Nephrology consult for further recs Hypokalemia replete as needed Dehydration Ketonuria Ketonuria noted on UA NSS x 2 bags HTN Continue home meds CHF Pt with noted history of diastolic dysfunction on Echo from 2016 Currently stable Monitor volume status CAD Continue home aspirin and plavix Hypothyroidism Continue levothyroxine Giant cell arteritis Being worked up by Dr. Dawn as outpatient, was scheduled day after admission for surgical biopsy however will miss this and will need rescheduled for follow- up Continue prednisone 40 mg daily currently, scheduled to reduce down to 20 mg on 02/26 to continue taper as per outpatient recs Also on tramadol 50 mg BID per pcp Raynaud's disease Chronic, stable DVT prophylaxis: pt on plavix and aspirin with known anemia. Will continue with SCDs for DVT prophylaxis at this time. Diet: clears, advance as tolerated Dispo: PT/OT ordered Admission and Anticipated Discharge Date Admission Date: February 20, 2024 Subjective pt was seen after her EGD Trying to eat, at bedside. Denied acute concerns at that time. Review of Systems Review of Systems: All systems reviewed & are unremarkable except as noted in Subjective Physical Exam Physical Exam: General: Alert, oriented. Thin, cachectic Psych: Appropriate mood and affect Neuro: difficulty with movements HEENT: NC/AT CV: RRR Resp: Breath sounds clear bilaterally, no increased effort of breathing. Abdomen: Soft Extremities: No edema in lower extremities bilaterally. Results & Data Results & Data Vital Signs (Past 12 Hours) Vital Signs Temp Pulse Resp BP Pulse Ox O2 Del Method 02/21/24 07:31 37.2 C 71 18 174/83 H 95 Room Air 02/21/24 04:01 72 167/83 H 02/21/24 00:18 74 179/91 H
--- NOTE | 2024-02-21 11:52 | GI REPORT ---
Patient Name: Leyla Gaona Procedure Date: 02/21/2024 11:13 AM Date of : 1945 Admit Type: Inpatient Age: 78 Gender: Female Attending MD: Franko Wilkinson DO, Procedure: Upper GI endoscopy Providers: Franko Wilkinson DO Referring MD: Sylvie Gutierrez MD Indications: Dysphagia Medicines: Monitored Anesthesia Care Complications: No immediate complications. Estimated Blood Loss: Estimated blood loss: none. Procedure: Pre-Anesthesia Assessment: - Prior to the procedure, a History and Physical was performed, and patient medications and allergies were reviewed. The patient's tolerance of previous anesthesia was also reviewed. The risks and benefits of the procedure and the sedation options and risks were discussed with the patient. All questions were answered, and informed consent was obtained. Prior Anticoagulants: The patient has taken Plavix (clopidogrel), last dose was 1 day prior to procedure. ASA Grade Assessment: IV - A patient with severe systemic disease that is a constant threat to life. After reviewing the risks and benefits, the patient was deemed in satisfactory condition to undergo the procedure. After obtaining informed consent, the endoscope was passed under direct vision. Throughout the procedure, the patient's blood pressure, pulse, and oxygen saturations were monitored continuously. The Endoscope was introduced through the mouth, and advanced to the second part of duodenum. The upper GI endoscopy was accomplished without difficulty. The patient tolerated the procedure well. Findings: Diffuse, white plaques were found in the entire esophagus. The entire examined stomach was normal. The examined duodenum was normal. Impression: - Esophageal plaques were found, consistent with candidiasis. - Normal stomach. - Normal examined duodenum. - No specimens collected. Recommendation: - [facility] to [facility]. - Advance diet as tolerated. - Continue present medications. - Diflucan (fluconazole) 400 mg by mouth today then 200 mg PO daily for 20 days. Franko Wilkinson DO 02/21/2024 11:52:20 AM This report has been signed electronically. Note Initiated On: 02/21/2024 11:13 AM Number of Addenda: 0 I attest to the content of the Intraoperative Record and orders documented therein, exceptions below {[id number]}
--- NOTE | 2024-02-21 12:36 | Anesthesiology Progress Note ---
Date of Service February 21, 2024 Anesthesia Post Procedure Vital Signs Vital Signs: Temp Pulse Pulse Pulse Resp BP BP 02/21/24 12:20 70 16 177/95 H 02/21/24 12:05 70 16 163/93 H 02/21/24 11:59 70 16 128/76 02/21/24 10:54 37.2 C 73 73 16 178/89 H 02/21/24 07:31 37.2 C 71 18 174/83 H 02/21/24 04:01 72 167/83 H 02/21/24 00:18 74 179/91 H 02/20/24 19:54 02/20/24 19:48 36.6 C 63 17 173/83 H 02/20/24 17:54 36.6 C 79 17 02/20/24 16:00 80 19 187/131 H 02/20/24 15:22 73 18 180/122 H 02/20/24 14:51 64 BP Pulse Ox O2 Del Method 02/21/24 12:20 100 Room Air 02/21/24 12:05 100 Room Air 02/21/24 11:59 100 Room Air 02/21/24 10:54 98 Room Air 02/21/24 07:31 95 Room Air 02/21/24 04:01 02/21/24 00:18 02/20/24 19:54 Room Air 02/20/24 19:48 92 Room Air 02/20/24 17:54 198/100 H 99 Room Air 02/20/24 16:00 96 Room Air 02/20/24 15:22 02/20/24 14:51 Pain Intensity Left Head: Pain Intensity: 9 Transfer of Care Handoff Completed per policy Notes Mental Status: alert / awake / arousable and participated in evaluation Patient Amnestic to Procedure: Yes Nausea / Vomiting: adequately controlled Pain: adequately controlled Airway Patency, RR, SpO2: stable & adequate BP & HR: stable & adequate Hydration State: stable & adequate Anesthetic Complications: no major complications apparent
[2024-02-21] MEDS: ASPIRIN 81 MG ECTAB PO SCH (14:47)
[2024-02-21] MEDS: ATORVASTATIN 40 MG TAB PO SCH (14:48)
[2024-02-21] MEDS: CHOLECALCIFEROL 25 MCG (1000 UNITS) TAB PO SCH (14:49)
[2024-02-21] MEDS: ADVANCED PROBIOTIC 625 MG CAPSULE PO SCH (14:52)
[2024-02-21] MEDS: MULTIVITAMIN TAB PO SCH (14:53)
[2024-02-21] MEDS: METOPROLOL SUCC 25MG EXT REL TAB PO SCH (14:53)
[2024-02-21] MEDS: predniSONE 20 MG TAB PO SCH (14:55)
[2024-02-21] MEDS: ZINC SULFATE 220 MG CAPSULE PO SCH (14:56)
[2024-02-21] MEDS: FLUCONAZOLE 100 MG TAB PO ONE (14:56)
[2024-02-21] MEDS: POTASSIUM CHLORIDE / WTR 10 MEQ/100 ML PLCT IV SCH (15:50)
--- NOTE | 2024-02-21 16:28 | Communication Note ---
Date of Service: February 21, 2024 Brief psychiatry consult note: Attempted to meet with Leyla for psychiatry consult. She states she is tried after EGD procedure and states she cannot talk to me today, requests I come back tomorrow. Notably she was also unwilling to talk to psychiatric liason last night. They will re-attempt as well.
[2024-02-21] MEDS: POLYETHYLENE (MIRALAX) 17 GM PACK PO SCH (17:04)
[2024-02-21] MEDS: POTASSIUM CHLORIDE CRTAB 20 MEQ TABCR PO STA (18:40)
--- NOTE | 2024-02-22 06:58 | Electrocardiogram Report ---
Test Reason : Blood Pressure : / mmHG Vent. Rate : 069 BPM Atrial Rate : 069 BPM P-R Int : 140 ms QRS Dur : 090 ms QT Int : 528 ms P-R-T Axes : 079 038 090 degrees QTc Int : 565 ms Normal sinus rhythm Nonspecific T wave abnormality Abnormal ECG When compared with ECG of 13-JAN-2024 10:58, Nonspecific T wave abnormality now evident in Inferior leads T wave inversion now evident in Lateral leads Confirmed by Jacoby Lewis ([id number]) on 02/22/2024 6:58:32 AM Referred By: Confirmed By:Jacoby Lewis
[2024-02-22 07:03] LABS: Hematocrit (blood only) 33.5 % (37.0-47.0); Hemoglobin 11.3 g/dl (12.0-16.0); Immature Granulocytes # (auto) 0.04 K/uL (0.01-0.20); Immature Granulocytes % (auto) 0.5 %; Lymphocytes # (auto) 0.39 K/uL (1.20-3.40); Lymphocytes % (auto) 5.3 %; Mean Corpuscular Hgb Conc 33.7 g/dL (32.0-36.0); Mean Corpuscular Volume 82.9 fL (80.0-100.0); Mean Platelet Volume 8.5 fL (9.4-12.4); Monocytes # (auto) 0.74 K/uL (0.11-0.59); Monocytes % (auto) 10.1 %; Neutrophils # (auto) 6.15 K/uL (1.40-6.50); Neutrophils % (auto) 84.1 %; Platelet Count 368 K/uL (130-400); RDW Coefficient of Variation 14.4 % (11.5-14.5); RDW Standard Deviation 43.6 fL (36.4-46.3); Red Blood Count 4.04 M/uL (4.20-5.40); White Blood Count 7.32 K/ul (4.8-10.8)
[2024-02-22 07:38] LABS: BUN Creatinine Ratio 27.3 (10-20); Calcium 8.2 mg/dl (8.6-10.3); Est GFR (African American) 99.5 ml/min; Est GFR (Non-African American) 85.8 ml/min; Magnesium 2.2 mg/dl (1.7-2.4); Phosphorus 2.5 mg/dl (2.5-4.9); Potassium 3.6 mmol/L (3.5-5.1)
[2024-02-22] MEDS: FLUCONAZOLE 100 MG TAB PO SCH (08:31)
[2024-02-22] MEDS: ACETAMINOPHEN 325 MG TAB PO PRN (08:42)
[2024-02-22] MEDS: SODIUM CHLORIDE 0.9% 1,000 ML IV SCH (08:51)
--- NOTE | 2024-02-22 10:06 | Hospitalist Progress Note ---
Date of Service February 22, 2024 Assessment & Plan (1) Adult failure to thrive: (2) Generalized weakness: (3) Fall: (4) Dysphagia: (5) GERD (gastroesophageal reflux disease): (6) SIADH (syndrome of inappropriate ADH production): (7) (HFpEF) heart failure with preserved ejection fraction: (8) Hypertension: (9) CAD (coronary artery disease): (10) Hypothyroidism: (11) Giant cell arteritis: (12) Raynaud's disease: Plan 78-year-old female with PMHx of SIADH, hypothyroidism, hyperlipidemia, history of allergic rhinitis, chronic diastolic CHF, history of CAD, status post stent to LAD, history of hypertension, legal blindness, history of retinal artery occlusion, orthostatic hypotension, Raynaud disease, constipation, osteoporosis, SLE, generalized anxiety disorder, cachectic state, chronic anemia, CVA, 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, appreciate recs Psych consulted- superimposed eating disorder component Encourage po intake PT/OT Anemia Hgb around 11, previous baseline lower around 9 Possibly higher due to hemoconcentration in setting of dehydration (see below) AM anemia workup with iron studies, b12 and folate levels Supplement as needed based on the results Continue to monitor H/H Hyponatremia Appears chronic Sodium around 127-129 Pending AM urine osm and Na levels Consider Nephrology consult for further recs Hypokalemia replete as needed Dehydration Ketonuria Ketonuria noted on UA NSS x 2 bags HTN Continue home meds CHF Pt with noted history of diastolic dysfunction on Echo from 2016 Currently stable Monitor volume status CAD Continue home aspirin and plavix Hypothyroidism Continue levothyroxine Giant cell arteritis Being worked up by Dr. Dawn as outpatient, was scheduled day after admission for surgical biopsy however will miss this and will need rescheduled for follow- up Continue prednisone 40 mg daily currently, scheduled to reduce down to 20 mg on 02/26 to continue taper as per outpatient recs Also on tramadol 50 mg BID per pcp Raynaud's disease Chronic, stable DVT prophylaxis: pt on plavix and aspirin with known anemia. Will continue with SCDs for DVT prophylaxis at this time. Diet: regular, minced and moist Dispo: PT/OT ordered Admission and Anticipated Discharge Date Admission Date: February 20, 2024 Subjective Pt was seen with at bedside. On ipad, states oral and throat symptoms improving. Asking about having ears cleaned while here. Advised pt and that ear cleaning is not typically undertaken while inpatient. Not an urgent necessitating urgent ENT consult. Later discussed with pt's daughter outside the room, pt's daughter advised of the same and was understanding and agreeable. Daughter agreeable to Debrox ear drop use. Pt noting still weak and tired. PT/OT ordered Pt declining to talk to psych providers. Review of Systems Review of Systems: All systems reviewed & are unremarkable except as noted in Subjective Physical Exam Physical Exam: General: Alert, oriented. Thin, cachectic Psych: Appropriate mood and affect Neuro: difficulty with movements HEENT: NC/AT CV: RRR Resp: Breath sounds clear bilaterally, no increased effort of breathing. Abdomen: Soft Extremities: No edema in lower extremities bilaterally. Results & Data Results & Data Vital Signs (Past 12 Hours) Vital Signs Temp Pulse Resp BP Pulse Ox O2 Del Method 02/22/24 07:12 36.5 C 66 14 173/98 H 97 Room Air
--- NOTE | 2024-02-22 13:21 | Communication Note ---
Date of Service: February 22, 2024 Attempted to see Leyla again mid-day. Her lunch had arrived and she requested not to talk so she could eat her lunch and stated her throat was hurting so she didn't want to talk. Psych liason RN will attempt to see her again this afternoon. She declined to speak with psych liason RN last evening after declining to speak with me.
[2024-02-22] MEDS ORDERED: hydrOXYzine HCl 10 MG TAB PO PRN (19:43)
[2024-02-22] MEDS: CARBAMIDE PEROXIDE 6.5% 15 ML BTL OT SCH (20:19)
[2024-02-22] MEDS: LORazepam 0.5 MG TAB PO STA (20:19)
[2024-02-23 06:33] LABS: Hematocrit (blood only) 34.6 % (37.0-47.0); Hemoglobin 11.9 g/dl (12.0-16.0); Immature Granulocytes # (auto) 0.05 K/uL (0.01-0.20); Immature Granulocytes % (auto) 0.5 %; Lymphocytes # (auto) 0.59 K/uL (1.20-3.40); Lymphocytes % (auto) 5.9 %; Mean Corpuscular Hemoglobin 27.9 pg (25.0-34.0); Mean Corpuscular Hgb Conc 34.4 g/dL (32.0-36.0); Mean Corpuscular Volume 81.2 fL (80.0-100.0); Mean Platelet Volume 8.6 fL (9.4-12.4); Monocytes # (auto) 1.18 K/uL (0.11-0.59); Monocytes % (auto) 11.7 %; Neutrophils # (auto) 8.24 K/uL (1.40-6.50); Neutrophils % (auto) 81.9 %; Platelet Count 412 K/uL (130-400); RDW Coefficient of Variation 14.6 % (11.5-14.5); RDW Standard Deviation 42.5 fL (36.4-46.3); Red Blood Count 4.26 M/uL (4.20-5.40); White Blood Count 10.06 K/ul (4.8-10.8)
[2024-02-23 06:58] LABS: Calcium 7.7 mg/dl (8.6-10.3); Magnesium 1.9 mg/dl (1.7-2.4); Potassium 3.1 mmol/L (3.5-5.1)
[2024-02-23 07:12] LABS: Folate (Folic Acid),Ser orPlas 15.75 ng/ml (>5.38)
[2024-02-23 07:15] LABS: BUN Creatinine Ratio 23.5 (10-20); Creatinine Clr Calc Pharmacy 56.9 ml/min; Est GFR (African American) 108.3 ml/min; Est GFR (Non-African American) 93.4 ml/min; Phosphorus 1.2 mg/dl (2.5-4.9)
[2024-02-23] MEDS ORDERED: POTASSIUM PHOS 3 MMOL/1 ML INFUSION IV STA (07:57)
[2024-02-23] MEDS: POT PHOSPHATE MONOBASIC W/ SOD TAB PO SCH (09:17)
[2024-02-23] MEDS: POTASSIUM PHOSPHATE 21 MMOL in SODIUM CHLORIDE 0.9% 500 ML IV ONE (09:18)
--- NOTE | 2024-02-23 12:45 | Nephrology Consultation ---
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 Urine osm, urine na and Exam is consistent with same. Not getting Fluid restriction so will do 1200 ml per day. Encourage higher protein intake. she is getting irritable bcause everyone keeps telling her to eat more. Check serum osm tomorrow. Agree with oral and Iv k phos and oral/iv K. Check in AM again. there is not much we can do to make her na much better. as long as 125+ it is acceptable. 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 She presented to the hospital with Dysphgia and ? Choking/Aspiration.Family is concerned that she is having difficulty caring for herself as well as elderly at home. She has been recently worked up for gait instability, middle ear effusion and was seen here in the ER about 1 month ago for such, was deemed to have giant cell arteritis as outpatient, following with ENT in the near future. Patient was scheduled to have outpatient surgical consultation for possible temporal artery biopsy tomorrow, as well as ENT follow-up. She lives at home with her . patient is irritable and did not really want to talk. Daughter at bedside. her Na has been 127 to 129 since admission. Now very low Phos and K. getting Oral and Iv phos and Potassium. Struggling to eat. Wt los and is down to 38 kilo !! ROS--did not cooperate. See HPI. Physical Exam Physical Exam: General: awake, alert, no apparent distress, cachectic white female Head: Normocephalic, atraumatic ENT: mucous membranes moist Chest: Clear to auscultation, on room air Cardiac: Regular rate and rhythm, no murmur, no JVD, normal peripheral pulses, good capillary refill Abdominal: NABS x 4 quadrants, soft, nondistended, nontender to palpation, no rebound or guarding Extremities: + Diffuse muscle tone atrophy, muscular wasting, temporal wasting, + multiple areas of ecchymosis on her shins as well as her forearms from falls, no peripheral edema or erythema, calfs nontender to palpation Psych: irritable now Allergies Allergy/AdvReac Type Severity Reaction Status Date / Time venlafaxine Allergy Mild RASH Verified 02/02/23 17:38 Sulfa (Sulfonamide Allergy Unknown UNKNOWN Verified 02/02/23 17:38 Antibiotics) REACTION TO SULFA DRUGS tomato AdvReac Unknown Verified 02/02/23 17:38 Home Medications Medication Instructions Recorded Confirmed Type cholecalciferol (vitamin D3) 25 2,000 unit PO QAM 03/04/19 02/20/24 History mcg (1,000 unit) capsule (Vitamin D3) clobetasol 0.05 % shampoo 1 applic topical DIRECTED PRN 03/04/19 02/20/24 History for flare up of lupus docusate sodium 100 mg capsule 200 mg PO QAM 03/04/19 02/20/24 History (Colace) hydroxychloroquine 200 mg tablet 200 mg PO HS 03/04/19 02/20/24 History (Plaquenil) lactobacillus combination no.4 3 3,000 mmu cells PO QAM 03/04/19 02/20/24 History billion cell capsule (Probiotic) lisinopril 2.5 mg tablet 2.5 mg PO HS 08/14/22 02/20/24 History metoprolol succinate 25 mg 25 mg PO QAM 08/14/22 02/20/24 History tablet,extended release 24 hr clobetasol 0.05 % topical cream 1 applic topical BID PRN .FLARES 12/31/22 02/20/24 History clopidogrel 75 mg tablet 75 mg PO DAILY 12/31/22 02/20/24 History cyclosporine 0.05 % eye drops in a 1 drp OPB Q12H PRN Dry Eye(S) 12/31/22 02/20/24 History dropperette denosumab 60 mg/mL subcutaneous 60 mg subcut Q6M 12/31/22 02/20/24 History syringe (Prolia) fluticasone propionate 50 2 spray intranasal DAILY Allergy 12/31/22 02/20/24 History mcg/actuation nasal Symptoms spray,suspension furosemide 20 mg tablet 20 mg PO QAM 12/31/22 02/20/24 History multivitamin 1 tab PO DAILY 12/31/22 02/20/24 History nitroglycerin 0.4 mg sublingual 0.4 mg sublingual .DAILY/PRN PRN 12/31/22 02/20/24 History tablet Chest Pain tacrolimus 0.1 % topical ointment 1 applic topical BID PRN flare up 12/31/22 02/20/24 History of lupus zinc acetate 50 mg (zinc) capsule 50 mg PO QAM 12/31/22 02/20/24 History levothyroxine 100 mcg tablet 112 mcg PO DAILYBB 02/02/23 02/20/24 History (Synthroid) meclizine 25 mg tablet 25 mg PO TID PRN dizziness #14 tabs 01/13/24 02/20/24 Rx aspirin 81 mg tablet,delayed 81 mg PO QAM 02/20/24 02/20/24 History release atorvastatin 80 mg tablet 80 mg PO QAM 02/20/24 02/20/24 History azelastine 137 mcg (0.1 %) nasal 1 spray intranasal AMHS 02/20/24 02/20/24 History spray aerosol cetirizine 10 mg tablet 10 mg PO DAILY PRN rhinitis 02/20/24 02/20/24 History omeprazole 20 mg capsule,delayed 20 mg PO DAILYBB 02/20/24 02/20/24 History release polyethylene glycol 3350 17 34 g PO DAILY 02/20/24 02/20/24 History gram/dose oral powder (Miralax) prednisone 10 mg tablet See Rx Instructions .Route .COMPLEX 02/20/24 02/20/24 History prednisone 20 mg tablet 40 mg PO QAM 02/20/24 02/20/24 History sennosides 8.6 mg tablet (senna) 8.6 mg PO BID PRN Constipation 02/20/24 02/20/24 History tramadol 50 mg tablet 50 mg PO AMHS 02/20/24 02/20/24 History Patient History Medical History CAD (coronary artery disease) History of blood transfusion "with every surgery" Coronary artery disease s/p 5 stents in 2017 Raynaud's disease Diastolic heart failure EF 58%, follows with [facility] cardio SIADH (syndrome of inappropriate ADH production) Degenerative disc disease Chronic back pain GERD (gastroesophageal reflux disease) diet controlled Hypothyroidism Hypoglycemia with associated syncope, last syncopal episode colonoscopy fasting 8 yrs ago On anticoagulant therapy Systemic lupus follows with [facility] Rheumatology 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 no longer sees a neurologist. Myocardial Infarction (~2017) follows with Dr Jean Baptiste Hypertension controlled, stable per pt Surgical History Hx of vaginal hysterectomy History of open reduction and internal fixation (ORIF) procedure right wrist History of total hip arthroplasty left History of esophagogastroduodenoscopy (EGD) History of colonoscopy History of cataract surgery bilateral History of tonsillectomy History of heart artery stent (~2016) x5 stents (at [facility]) History of cardiac cath (~2016) at [facility] -5 stents-2017 S/P lumbar fusion x2 Family History Other No family history of adverse response to anesthesia Social History Smoking Status: Former smoker Tobacco Type: Cigarettes Cigarettes Per Day: 6-8; Second Hand Exposure: No; Do You Dip or Chew Tobacco: No; Hx Alcohol Use: Yes Alcohol type: wine Hx Substance Use: No Preferred Language: Nauruan Communication Ability: Effective Communication Ability Comment: legally blind Visual Impairment: No Limitations Hearing Ability: Normal Sourcing Assistant Required: No Beliefs That Will Affect Care: None marital status: Current Living Situation: Spouse Current Living Situation Comment: Lives at home with current occupational status: retired Other Information That Helps Us Care for You: No Feels Safe at Home: Yes Safety Concerns: Feels Safe At This Time Assistive Devices: Cane, Walker and Other Assistive Devices Comment: upper and lower partials Results & Data Vital Signs (Past 12 Hours) Vital Signs Temp Pulse Resp BP Pulse Ox O2 Del Method 02/23/24 07:32 36.8 C 76 18 127/77 98 Room Air Laboratory Results Reviewed Diagnostic Findings Reviewed.
--- NOTE | 2024-02-23 12:59 | Hospitalist Progress Note ---
Date of Service February 23, 2024 Assessment & Plan (1) Adult failure to thrive: (2) Generalized weakness: (3) Fall: (4) Dysphagia: (5) GERD (gastroesophageal reflux disease): (6) SIADH (syndrome of inappropriate ADH production): (7) (HFpEF) heart failure with preserved ejection fraction: (8) Hypertension: (9) CAD (coronary artery disease): (10) Hypothyroidism: (11) Giant cell arteritis: (12) Raynaud's disease: Plan 78-year-old female with PMHx of SIADH, hypothyroidism, hyperlipidemia, history of allergic rhinitis, chronic diastolic CHF, history of CAD, status post stent to LAD, history of hypertension, legal blindness, history of retinal artery occlusion, orthostatic hypotension, Raynaud disease, constipation, osteoporosis, SLE, generalized anxiety disorder, cachectic state, chronic anemia, CVA, 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 Psych consulted- superimposed eating disorder component Encourage po intake PT/OT Anemia Hgb around 11, previous baseline lower around 9 Possibly higher due to hemoconcentration in setting of dehydration (see below) AM anemia workup with iron studies, b12 and folate levels Supplement as needed based on the results Continue to monitor H/H Hyponatremia Appears chronic Sodium around 127-129 Pending AM urine osm and Na levels Consider Nephrology consult for further recs -tea toast syndrome -fluid restriction Hypophosphatemia Hypokalemia replete as needed Dehydration Ketonuria Ketonuria noted on UA NSS x 2 bags Impacted Cerumen Discussion with pt, and daughter outpt followup required, not urgent consult for ENT Daughter understandable and agreeable Debrox ear drops ordered Outpatient ENT followup after discharge HTN Continue home meds CHF Pt with noted history of diastolic dysfunction on Echo from 2017 Currently stable Monitor volume status CAD Continue home aspirin and plavix Hypothyroidism Continue levothyroxine Giant cell arteritis Being worked up by Dr. Dawn as outpatient, was scheduled day after admission for surgical biopsy however will miss this and will need rescheduled for follow- up Continue prednisone 40 mg daily currently, scheduled to reduce down to 20 mg on 02/26 to continue taper as per outpatient recs Also on tramadol 50 mg BID per pcp Raynaud's disease Chronic, stable DVT prophylaxis: pt on plavix and aspirin with known anemia. Will continue with SCDs for DVT prophylaxis at this time. Diet: regular, minced and moist Dispo: PT/OT ordered Admission and Anticipated Discharge Date Admission Date: February 20, 2024 Subjective pt seen with at bedside. Denied acute concerns, states she was trying to eat but had to take breaks in between. per nursing daughter and family would like to discuss feeding options. Review of Systems Review of Systems: All systems reviewed & are unremarkable except as noted in Subjective Physical Exam Physical Exam: General: Alert, oriented. Thin, cachectic Psych: Appropriate mood and affect Neuro: difficulty with movements HEENT: NC/AT CV: RRR Resp: Breath sounds clear bilaterally, no increased effort of breathing. Abdomen: Soft Extremities: No edema in lower extremities bilaterally. Results & Data Results & Data Vital Signs (Past 12 Hours) Vital Signs Temp Pulse Resp BP Pulse Ox O2 Del Method 02/23/24 07:32 36.8 C 76 18 127/77 98 Room Air
[2024-02-23] MEDS: POTASSIUM CHLORIDE / WTR 10 MEQ/100 ML PLCT IV SCH (15:49)
[2024-02-23] MEDS: SODIUM CHLORIDE 0.9% 1,000 ML IV SCH (18:01)
[2024-02-24] MEDS: hydrALAZINE HCL 20 MG/ML VIAL IV ONE (03:08)
[2024-02-24] MEDS: MoRPHine SULFATE 2 MG/ML CARP IV STA (03:08)
[2024-02-24 06:24] LABS: Calcium 6.6 mg/dl (8.6-10.3); Magnesium 1.7 mg/dl (1.7-2.4)
[2024-02-24 06:33] LABS: Basophils # (auto) 0.01 K/uL (0.00-0.20); Basophils % (auto) 0.1 %; Hematocrit (blood only) 32.2 % (37.0-47.0); Hemoglobin 11.1 g/dl (12.0-16.0); Immature Granulocytes # (auto) 0.05 K/uL (0.01-0.20); Immature Granulocytes % (auto) 0.5 %; Lymphocytes % (auto) 5.5 %; Mean Corpuscular Hemoglobin 28.1 pg (25.0-34.0); Mean Corpuscular Hgb Conc 34.5 g/dL (32.0-36.0); Mean Corpuscular Volume 81.5 fL (80.0-100.0); Mean Platelet Volume 8.5 fL (9.4-12.4); Monocytes # (auto) 1.05 K/uL (0.11-0.59); Monocytes % (auto) 11.5 %; Neutrophils # (auto) 7.55 K/uL (1.40-6.50); Neutrophils % (auto) 82.4 %; Platelet Count 391 K/uL (130-400); RDW Coefficient of Variation 14.6 % (11.5-14.5); RDW Standard Deviation 43.2 fL (36.4-46.3); Red Blood Count 3.95 M/uL (4.20-5.40); White Blood Count 9.16 K/ul (4.8-10.8)
[2024-02-24 06:36] LABS: BUN Creatinine Ratio 25.6 (10-20); Creatinine Clr Calc Pharmacy 67.5 ml/min; Est GFR (African American) 114.5 ml/min; Est GFR (Non-African American) 98.8 ml/min; Phosphorus 2.6 mg/dl (2.5-4.9)
[2024-02-24] MEDS: SUMAtriptan succinate 50 MG TAB PO ONE (09:31)
[2024-02-24] MEDS: POTASSIUM CHLORIDE / WTR 10 MEQ/100 ML PLCT IV SCH (10:25)
--- NOTE | 2024-02-24 11:30 | Nephrology Progress Note ---
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 Urine osm, urine na and Exam is consistent with same. Encourage higher protein intake. she is getting irritable bcause everyone keeps telling her to eat more. Check serum osm tomorrow. Agree with oral and Iv k phos and oral/iv K. Check in AM again. -cont fluid limit 1.2 L toward which protein shakes don't count -serum osm ordered for AM >>replete K and phos po or IV as needed > goal K is 4 for optimal sodium control; getting 40 mEq today IV >>NS stopped > this will only further raise BP and complicate sodium mgt >> however w/ stroke alert, CT angio planned and so have given her additional 500 mL NS and will then stop -avoid NSAIDS there is not much we can do to make her na much better. as long as 125+ it is acceptable for now. Admission and Anticipated Discharge Date Admission Date: February 20, 2024 Subjective concerns today about diminished MS, further decreased po intake, ? new L facial droop and L arm weakness. stroke alert called shortly after I saw her. gen surg evaluating re feeing options; palliative also to see pt. pt very tired tells me she's not hungry and that L arm hurts after serial neuro exams. daughter at bedside as well Review of Systems 2 Review of Systems: All systems reviewed & are unremarkable except as noted in Subjective Physical Exam 2 Constitutional: well developed, + cachectic, + frail appearing and + lethargic Eyes: EOM intact bilaterally ENMT: Ears: no external ear abnormality Nose: no external nose abnormality Mouth: + dry oral mucous membranes Neck: no nuchal rigidity Respiratory: normal respiratory effort Auscultation: + diminished lung sounds Cardiovascular: RRR, no murmur, no edema Gastrointestinal (Abdomen): Inspection/Auscultation: normal bowel sounds P ercussion/Palpation: abdomen soft; abdomen nontender Musculoskeletal: Extremities: strength 5/5 throughout Skin: no rashes, warm and dry Neurologic: luo, fluent though weak and limited amount and volume of speech, no tremor Results & Data Vital Signs (Past 12 Hours) Vital Signs Temp Pulse Resp BP BP Pulse Ox O2 Del Method 02/24/24 09:37 162/82 H 02/24/24 09:00 Room Air 02/24/24 08:11 36.9 C 73 12 184/82 H 98 Room Air 02/24/24 03:31 136/77 02/24/24 03:02 68 184/84 H 98 Room Air Laboratory Results 02/24/24 05:56 02/24/24 05:56
[2024-02-24] MEDS ORDERED: PHARMACIST DISCHARGE MED REC CONSULT PRN (11:35)
[2024-02-24] MEDS: OPTIRAY 320 125ml IV ONE (12:09)
--- NOTE | 2024-02-24 12:10 | Palliative Care Consultation ---
Date of Consultation February 24, 2024 Assessment & Plan (1) Dyspnea and respiratory abnormalities: (2) Impaired swallowing: (3) Generalized weakness: (4) Adult failure to thrive: (5) Palliative care by specialist: Met with pt family, provided overview of Palliative Medicine, a subspecialty that provides specialized medical care for people living with a serious illness by offering a focus on quality of life. Palliative Medicine is often conflated with hospice: I advised patient/family that Palliative and hospice can be partners but we are not the same. It is important to understand the difference so that we may be informed, and not afraid. Palliative Medicine works to improve QOL through reduction of symptom burden/more control over their illness, for both the patient and family. Palliative medicine clinicians are board certified, specially-trained and another member of the patient's medical care team. We often provide an extra layer of support because our care is based on the needs of the patient, not the prognosis; as such, it's appropriate at any age/advancing stage of a serious illness and can be provided along with curative treatment. Palliative Medicine clinicians are also trained in advanced communication methodologies, to facilitate complex discussions about advanced illness planning, which are needed to help assure that the treatment choices match the patient's goals, aka delivering Goal Concordant care. Finally, we discussed that hospice is a visiting nurse service that focuses on care delivered at the very end of life for patients with terminal illness, with life expectancy less than 6 month. (6) Advanced care planning/counseling discussion: see separate family ACP meeting note from later today Plan Stroke work up is underway, await MRI Time limited trial TPN No Feeding tube for now, there is some disagreement in family re whether or not pt would want this follow up family meeting tomorrow at 0930 Thank you for allowing us to participate in the ongoing care of this patient. Please don't hesitate to call or page with any additional concerns. Dr. Juliana Gomes DNP Director, Palliative Care History of Present Illness Reason for Consultation: "goals of care" Attending Physician: Sylvie Bales MD History of Present Illness Admtted 02/20/24 Palliative med consulted 02/24/24 for "goals of care" chart review indicates Leyla is a 78yo female with h/o SIADH, hypothyroidism, HLD, chronic diastolic CHF, CAD s/p LAD stent, HTN, legal blindness, retinal artery occlusion, orthostatic hypotension, Raynaud's disease, constipation, osteoporosis, SLE, generalized anxiety disorder, cachexia, chronic anemia, CVA, recurrent left hip dislocation( x 3 s/p surgery) She is admitted for difficulty swallowing and eating. She began having mental status changes this morning with ?facial droop. Stroke work up in progress she is more lethargic at times she is seen by telehealth with dtrs Latonya and Maria M at her side Allergies Allergy/AdvReac Type Severity Reaction Status Date / Time venlafaxine Allergy Mild RASH Verified 02/02/23 17:38 Sulfa (Sulfonamide Allergy Unknown UNKNOWN Verified 02/02/23 17:38 Antibiotics) REACTION TO SULFA DRUGS tomato AdvReac Unknown Verified 02/02/23 17:38 Home Medications Medication Instructions Recorded Confirmed Type cholecalciferol (vitamin D3) 25 2,000 unit PO QAM 03/04/19 02/20/24 History mcg (1,000 unit) capsule (Vitamin D3) clobetasol 0.05 % shampoo 1 applic topical DIRECTED PRN 03/04/19 02/20/24 History for flare up of lupus docusate sodium 100 mg capsule 200 mg PO QAM 03/04/19 02/20/24 History (Colace) hydroxychloroquine 200 mg tablet 200 mg PO HS 03/04/19 02/20/24 History (Plaquenil) lactobacillus combination no.4 3 3,000 mmu cells PO QAM 03/04/19 02/20/24 History billion cell capsule (Probiotic) lisinopril 2.5 mg tablet 2.5 mg PO HS 08/14/22 02/20/24 History metoprolol succinate 25 mg 25 mg PO QAM 08/14/22 02/20/24 History tablet,extended release 24 hr clobetasol 0.05 % topical cream 1 applic topical BID PRN .FLARES 12/31/22 02/20/24 History clopidogrel 75 mg tablet 75 mg PO DAILY 12/31/22 02/20/24 History cyclosporine 0.05 % eye drops in a 1 drp OPB Q12H PRN Dry Eye(S) 12/31/22 02/20/24 History dropperette denosumab 60 mg/mL subcutaneous 60 mg subcut Q6M 12/31/22 02/20/24 History syringe (Prolia) fluticasone propionate 50 2 spray intranasal DAILY Allergy 12/31/22 02/20/24 History mcg/actuation nasal Symptoms spray,suspension furosemide 20 mg tablet 20 mg PO QAM 12/31/22 02/20/24 History multivitamin 1 tab PO DAILY 12/31/22 02/20/24 History nitroglycerin 0.4 mg sublingual 0.4 mg sublingual .DAILY/PRN PRN 12/31/22 02/20/24 History tablet Chest Pain tacrolimus 0.1 % topical ointment 1 applic topical BID PRN flare up 12/31/22 02/20/24 History of lupus zinc acetate 50 mg (zinc) capsule 50 mg PO QAM 12/31/22 02/20/24 History levothyroxine 100 mcg tablet 112 mcg PO DAILYBB 02/02/23 02/20/24 History (Synthroid) meclizine 25 mg tablet 25 mg PO TID PRN dizziness #14 tabs 01/13/24 02/20/24 Rx aspirin 81 mg tablet,delayed 81 mg PO QAM 02/20/24 02/20/24 History release atorvastatin 80 mg tablet 80 mg PO QAM 02/20/24 02/20/24 History azelastine 137 mcg (0.1 %) nasal 1 spray intranasal AMHS 02/20/24 02/20/24 History spray aerosol cetirizine 10 mg tablet 10 mg PO DAILY PRN rhinitis 02/20/24 02/20/24 History omeprazole 20 mg capsule,delayed 20 mg PO DAILYBB 02/20/24 02/20/24 History release polyethylene glycol 3350 17 34 g PO DAILY 02/20/24 02/20/24 History gram/dose oral powder (Miralax) prednisone 10 mg tablet See Rx Instructions .Route .COMPLEX 02/20/24 02/20/24 History prednisone 20 mg tablet 40 mg PO QAM 02/20/24 02/20/24 History sennosides 8.6 mg tablet (senna) 8.6 mg PO BID PRN Constipation 02/20/24 02/20/24 History tramadol 50 mg tablet 50 mg PO AMHS 02/20/24 02/20/24 History Patient History Medical History (Updated 02/24/24 @ 12:10 by Juliana Gomes DNP) Advanced care planning/counseling discussion Palliative care by specialist Dyspnea and respiratory abnormalities Impaired swallowing CAD (coronary artery disease) History of blood transfusion "with every surgery" Coronary artery disease s/p 5 stents in 2017 Raynaud's disease Diastolic heart failure EF 58%, follows with [facility] cardio SIADH (syndrome of inappropriate ADH production) Degenerative disc disease Chronic back pain GERD (gastroesophageal reflux disease) diet controlled Hypothyroidism Hypoglycemia with associated syncope, last syncopal episode colonoscopy fasting 8 yrs ago On anticoagulant therapy Systemic lupus follows with [facility] Rheumatology 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 no longer sees a neurologist. Myocardial Infarction (~2017) follows with Dr Jean Baptiste Hypertension controlled, stable per pt Surgical History Hx of vaginal hysterectomy History of open reduction and internal fixation (ORIF) procedure right wrist History of total hip arthroplasty left History of esophagogastroduodenoscopy (EGD) History of colonoscopy History of cataract surgery bilateral History of tonsillectomy History of heart artery stent (~2016) x5 stents (at [facility]) History of cardiac cath (~2016) at [facility] -5 stents-2017 S/P lumbar fusion x2 Family History Other No family history of adverse response to anesthesia Social History Smoking Status: Former smoker Tobacco Type: Cigarettes Cigarettes Per Day: 6-8; Second Hand Exposure: No; Do You Dip or Chew Tobacco: No; Hx Alcohol Use: Yes Alcohol type: wine Hx Substance Use: No Preferred Language: Finnish Communication Ability: Effective Communication Ability Comment: legally blind Visual Impairment: No Limitations Hearing Ability: Normal Security Team Lead Required: No Beliefs That Will Affect Care: None marital status: Current Living Situation: Spouse Current Living Situation Comment: Lives at home with current occupational status: retired Other Information That Helps Us Care for You: No Feels Safe at Home: Yes Safety Concerns: Feels Safe At This Time Assistive Devices: Cane, Walker and Other Assistive Devices Comment: upper and lower partials Review of Systems Review of Systems: Unobtainable due to cognitive status Physical Exam Physical Exam: She is not responsive to verbal bitemp wasting noted she has a gaunt appearance, cachectic with bony prominences noted she has mild resp distress with open mouth breathing skin is taut and tight appearing abd scaphoid skin pale, +ashen pallor Results & Data Vital Signs (Past 12 Hours) Vital Signs Temp Pulse Resp BP BP Pulse Ox O2 Del Method 02/24/24 09:37 162/82 H 02/24/24 09:00 Room Air 02/24/24 08:11 36.9 C 73 12 184/82 H 98 Room Air 02/24/24 03:31 136/77 02/24/24 03:02 68 184/84 H 98 Room Air Laboratory Results 02/24/24 02/24/24 02/23/24 Range/Units 11:45 05:56 06:17 WBC 9.16 (4.8-10.8) K/ul RBC 3.95 L (4.20-5.40) M/uL Hgb 11.1 L (12.0-16.0) g/dl Hct 32.2 L (37.0-47.0) % MCV 81.5 (80.0-100.0) fL MCH 28.1 (25.0-34.0) pg MCHC 34.5 (32.0-36.0) g/dL RDW Std Deviation 43.2 (36.4-46.3) fL RDW Coeff of [place] 14.6 H (11.5-14.5) % Plt Count 391 (130-400) K/uL MPV 8.5 L (9.4-12.4) fL Immature Gran % (Auto) 0.5 % Neut % (Auto) 82.4 % Lymph % (Auto) 5.5 % Clare % (Auto) 11.5 % Eos % (Auto) 0.0 % Baso % (Auto) 0.1 % Neut # (Auto) 7.55 H (1.40-6.50) K/uL Lymph # (Auto) 0.50 L (1.20-3.40) K/uL Clare # (Auto) 1.05 H (0.11-0.59) K/uL Eos # (Auto) 0.00 (0.00-0.50) K/uL Baso # (Auto) 0.01 (0.00-0.20) K/uL Immature Gran # (Auto) 0.05 (0.01-0.20) K/uL Polychromasia Ovalocytes PT (9.0-12.0) Seconds INR (0.9-1.1) APTT (21-31) Seconds PTT Ratio Sodium 127 L (136-145) mmol/L Potassium 3.0 L (3.5-5.1) mmol/L Chloride 94 L (98-107) mmol/L Carbon Dioxide 26 (21-32) mmol/L Anion Gap 7 (3-11) BUN 11 (6-23) mg/dl Creatinine 0.43 L (0.6-1.2) mg/dl Est Cr Clr Drug Dosing 67.5 Est GFR ( Amer) 114.5 ml/min Est GFR (Non-Af Amer) 98.8 ml/min BUN/Creatinine Ratio 25.6 H (10-20) Glucose 82 (70-99(Fasting)) mg/dl POC Glucose 110 H (70-99) mg/dl Calcium 6.6 L (8.6-10.3) mg/dl Phosphorus 2.6 D (2.5-4.9) mg/dl Magnesium 1.7 (1.7-2.4) mg/dl Iron (35-150) mcg/dl TIBC (250-450) mcg/dl Unsaturated IBC (155-355) mcg/dl Transferrin % Sat (15-50) % Ferritin (8-388) ng/ml Total Bilirubin (0.2-1.0) mg/dl AST (13-39) U/L ALT (7-52) U/L Alkaline Phosphatase (34-104) U/L Troponin I High Sens (0-14) pg/ml Total Protein (6.0-8.3) gm/dl Albumin (3.4-5.0) gm/dl Globulin (2.5-4.0) gm/dl Albumin/Globulin Ratio (0.9-2) Vitamin B12 (180-914) pg/ml Folate (>5.38) ng/ml Urine Color Urine Appearance (Clear) Urine pH (4.5-7.5) Ur Specific [place] (1.000-1.030) Urine Protein (Negative) Urine Glucose (UA) (Negative) Urine Ketones (Negative) Urine Blood (Negative) Urine Nitrite (Negative) Urine Bilirubin (Negative) Urine Urobilinogen (Negative) Ur Leukocyte Esterase (Negative) Urine WBC (Auto) (0-5) /hpf Urine RBC (Auto) (0-4) /hpf U Hyaline Cast (Auto) (0-5) /lpf U Epithel Cells (Auto) (0-5) /lpf Urine Bacteria (Auto) (Negative) Urine Osmolality 400 L (500-800) mOsm/kg Ur Random Sodium 142 mmol/L SARS-CoV-2 (PCR) (Negative) Influenza Type A (PCR) (Neg) Influenza Type B (PCR) (Neg) RSV (RT-PCR) (Neg) 02/23/24 02/22/24 02/21/24 Range/Units 05:47 06:36 06:42 WBC 10.06 7.32 9.74 (4.8-10.8) K/ul RBC 4.26 4.04 L 4.19 L (4.20-5.40) M/uL Hgb 11.9 L 11.3 L 11.7 L (12.0-16.0) g/dl Hct 34.6 L 33.5 L 34.3 L (37.0-47.0) % MCV 81.2 82.9 81.9 (80.0-100.0) fL MCH 27.9 28.0 27.9 (25.0-34.0) pg MCHC 34.4 33.7 34.1 (32.0-36.0) g/dL RDW Std Deviation 42.5 43.6 42.2 (36.4-46.3) fL RDW Coeff of [place] 14.6 H 14.4 14.4 (11.5-14.5) % Plt Count 412 H 368 418 H (130-400) K/uL MPV 8.6 L 8.5 L 8.6 L (9.4-12.4) fL Immature Gran % (Auto) 0.5 0.5 % Neut % (Auto) 81.9 84.1 % Lymph % (Auto) 5.9 5.3 % Clare % (Auto) 11.7 10.1 % Eos % (Auto) 0.0 0.0 % Baso % (Auto) 0.0 0.0 % Neut # (Auto) 8.24 H 6.15 (1.40-6.50) K/uL Lymph # (Auto) 0.59 L 0.39 L (1.20-3.40) K/uL Clare # (Auto) 1.18 H 0.74 H (0.11-0.59) K/uL Eos # (Auto) 0.00 0.00 (0.00-0.50) K/uL Baso # (Auto) 0.00 0.00 (0.00-0.20) K/uL Immature Gran # (Auto) 0.05 0.04 (0.01-0.20) K/uL Polychromasia Ovalocytes PT (9.0-12.0) Seconds INR (0.9-1.1) APTT (21-31) Seconds PTT Ratio Sodium 128 L 128 L 127 L (136-145) mmol/L Potassium 3.1 L 3.6 3.0 L (3.5-5.1) mmol/L Chloride 91 L 90 L 88 L (98-107) mmol/L Carbon Dioxide 29 31 30 (21-32) mmol/L Anion Gap 8 7 9 (3-11) BUN 12 18 18 (6-23) mg/dl Creatinine 0.51 L 0.66 0.60 (0.6-1.2) mg/dl Est Cr Clr Drug Dosing 56.9 44.0 48.4 Est GFR ( Amer) 108.3 99.5 102.6 ml/min Est GFR (Non-Af Amer) 93.4 85.8 88.5 ml/min BUN/Creatinine Ratio 23.5 H 27.3 H 30.0 H (10-20) Glucose 94 95 93 (70-99(Fasting)) mg/dl POC Glucose (70-99) mg/dl Calcium 7.7 L 8.2 L 8.4 L (8.6-10.3) mg/dl Phosphorus 1.2 L* D 2.5 (2.5-4.9) mg/dl Magnesium 1.9 2.2 (1.7-2.4) mg/dl Iron 51 (35-150) mcg/dl TIBC 257 (250-450) mcg/dl Unsaturated IBC 206 (155-355) mcg/dl Transferrin % Sat 20 (15-50) % Ferritin 136.0 (8-388) ng/ml Total Bilirubin (0.2-1.0) mg/dl AST (13-39) U/L ALT (7-52) U/L Alkaline Phosphatase (34-104) U/L Troponin I High Sens (0-14) pg/ml Total Protein (6.0-8.3) gm/dl Albumin (3.4-5.0) gm/dl Globulin (2.5-4.0) gm/dl Albumin/Globulin Ratio (0.9-2) Vitamin B12 1123 H (180-914) pg/ml Folate 15.75 (>5.38) ng/ml Urine Color Urine Appearance (Clear) Urine pH (4.5-7.5) Ur Specific [place] (1.000-1.030) Urine Protein (Negative) Urine Glucose (UA) (Negative) Urine Ketones (Negative) Urine Blood (Negative) Urine Nitrite (Negative) Urine Bilirubin (Negative) Urine Urobilinogen (Negative) Ur Leukocyte Esterase (Negative) Urine WBC (Auto) (0-5) /hpf Urine RBC (Auto) (0-4) /hpf U Hyaline Cast (Auto) (0-5) /lpf U Epithel Cells (Auto) (0-5) /lpf Urine Bacteria (Auto) (Negative) Urine Osmolality (500-800) mOsm/kg Ur Random Sodium mmol/L SARS-CoV-2 (PCR) (Negative) Influenza Type A (PCR) (Neg) Influenza Type B (PCR) (Neg) RSV (RT-PCR) (Neg) 02/21/24 02/20/24 Range/Units 04:15 11:55 WBC 9.71 (4.8-10.8) K/ul RBC 4.26 (4.20-5.40) M/uL Hgb 12.0 (12.0-16.0) g/dl Hct 34.7 L (37.0-47.0) % MCV 81.5 (80.0-100.0) fL MCH 28.2 (25.0-34.0) pg MCHC 34.6 (32.0-36.0) g/dL RDW Std Deviation 42.5 (36.4-46.3) fL RDW Coeff of [place] 14.4 (11.5-14.5) % Plt Count 487 H (130-400) K/uL MPV 8.8 L (9.4-12.4) fL Immature Gran % (Auto) 0.3 % Neut % (Auto) 94.1 % Lymph % (Auto) 2.2 % Clare % (Auto) 3.4 % Eos % (Auto) 0.0 % Baso % (Auto) 0.0 % Neut # (Auto) 9.14 H (1.40-6.50) K/uL Lymph # (Auto) 0.21 L (1.20-3.40) K/uL Clare # (Auto) 0.33 (0.11-0.59) K/uL Eos # (Auto) 0.00 (0.00-0.50) K/uL Baso # (Auto) 0.00 (0.00-0.20) K/uL Immature Gran # (Auto) 0.03 (0.01-0.20) K/uL Polychromasia 1+ Ovalocytes 1+ PT 11.6 (9.0-12.0) Seconds INR 1.1 (0.9-1.1) APTT 22 (21-31) Seconds PTT Ratio 0.8 Sodium 129 L (136-145) mmol/L Potassium 3.7 (3.5-5.1) mmol/L Chloride 88 L (98-107) mmol/L Carbon Dioxide 32 (21-32) mmol/L Anion Gap 9 (3-11) BUN 28 H (6-23) mg/dl Creatinine 0.86 (0.6-1.2) mg/dl Est Cr Clr Drug Dosing Not Reportable Est GFR ( Amer) 76.1 ml/min Est GFR (Non-Af Amer) 65.6 ml/min BUN/Creatinine Ratio 32.6 H (10-20) Glucose 106 H (70-99(Fasting)) mg/dl POC Glucose (70-99) mg/dl Calcium 9.6 (8.6-10.3) mg/dl Phosphorus (2.5-4.9) mg/dl Magnesium 2.6 H (1.7-2.4) mg/dl Iron (35-150) mcg/dl TIBC (250-450) mcg/dl Unsaturated IBC (155-355) mcg/dl Transferrin % Sat (15-50) % Ferritin (8-388) ng/ml Total Bilirubin 0.6 (0.2-1.0) mg/dl AST 34 (13-39) U/L ALT 14 (7-52) U/L Alkaline Phosphatase 57 (34-104) U/L Troponin I High Sens 11.1 (0-14) pg/ml Total Protein 7.6 (6.0-8.3) gm/dl Albumin 4.2 (3.4-5.0) gm/dl Globulin 3.4 (2.5-4.0) gm/dl Albumin/Globulin Ratio 1.2 (0.9-2) Vitamin B12 (180-914) pg/ml Folate (>5.38) ng/ml Urine Color Yellow Urine Appearance Clear (Clear) Urine pH 8.0 H (4.5-7.5) Ur Specific [place] 1.012 (1.000-1.030) Urine Protein Trace H (Negative) Urine Glucose (UA) Negative (Negative) Urine Ketones Trace H (Negative) Urine Blood Negative (Negative) Urine Nitrite Negative (Negative) Urine Bilirubin Negative (Negative) Urine Urobilinogen Negative (Negative) Ur Leukocyte Esterase Negative (Negative) Urine WBC (Auto) 1-5 (0-5) /hpf Urine RBC (Auto) 0-4 (0-4) /hpf U Hyaline Cast (Auto) 1-5 (0-5) /lpf U Epithel Cells (Auto) 5-10 H (0-5) /lpf Urine Bacteria (Auto) Negative (Negative) Urine Osmolality (500-800) mOsm/kg Ur Random Sodium mmol/L SARS-CoV-2 (PCR) NEGATIVE (Negative) Influenza Type A (PCR) Negative (Neg) Influenza Type B (PCR) Negative (Neg) RSV (RT-PCR) Negative (Neg) Diagnostic Findings Cervical Spine CT 02/20/24 11:41 CT cervical spine wo con CT DOSE: 905.77 mGy.cm CLINICAL HISTORY: 78 years-old Female with fall. Acute neck pain status post fall COMPARISON: Head CT of same day TECHNIQUE: Multiple axial CT images of the cervical spine were obtained without contrast. A dose lowering technique was utilized adhering to the principles of ALARA. FINDINGS: Bilateral mastoid and left middle ear effusions. Reversal of the normal cervical lordosis. No acute fracture identified. Grade 1 anterolisthesis C3 on C4 is noted with facet arthrosis, most advanced on the left. Severe disc space narrowing at C3-C4, C4-C5 and C5-C6. Moderate multilevel spondylotic spurring with moderate to severe facet arthrosis. No acute fracture or subluxation. Lung apices are clear. No pneumothorax. Unremarkable soft tissues. IMPRESSION: No acute cervical spine fracture identified. ACT 112: Negative or not required by law. The above report was generated using voice recognition software. It may contain grammatical, syntax or spelling errors. Electronically signed by: Isaac Gaming M.D. 02/20/2024 12:35 PM Chest X-Ray 02/20/24 11:41 XR chest 1V not portable CLINICAL HISTORY: weakness COMPARISON STUDY: Chest CT April 30, 2017. Chest radiograph April 09, 2023. FINDINGS: There is no pneumothorax or pleural effusion. No consolidation is identified to suggest pneumonia. No evidence for pulmonary edema. Cardiomediastinal silhouette is stable. Several old left rib fractures are incidentally noted. IMPRESSION: No acute cardiopulmonary findings. ACT 112: Negative or not required by law. Electronically signed by: Christian Zambrano M.D. 02/20/2024 12:[address] 02/20/24 11:41 CT SCAN OF THE BRAIN WITHOUT IV CONTRAST CLINICAL HISTORY: Fall. Generalized weakness. COMPARISON STUDY: CT and MRI of the brain dated 01/13/2024 TECHNIQUE: Unenhanced axial CT scan of the brain is performed from the vertex to the skull base. A dose lowering technique was utilized adhering to the principles of ALARA. FINDINGS: Brain parenchyma: There is age-related involutional change noting moderate to advanced subcortical and periventricular microangiopathic disease. There is no hemorrhage, mass effect, or evidence of acute territorial ischemia by CT criteria. Small chronic lacunar infarcts are noted in the basal ganglia and thalami. Perez-white matter differentiation is preserved. No extra-axial fluid collection is seen. Ventricles, sulci, cisterns: Prominent secondary to involutional change. Intracranial vasculature: There is atherosclerotic calcification of the cavernous carotid and vertebral arteries. Calvarium: The skeletal structures are osteopenic. No depressed calvarial fracture is seen. Sinuses and mastoids: The visualized paranasal sinuses are clear. There are bilateral mastoid effusions. Orbits: The bony orbits are grossly intact. There are bilateral ocular lens implants. IMPRESSION: There is no hemorrhage, mass effect, or evidence of acute territorial ischemia by CT criteria. ACT 112: Negative or not required by law. Electronically signed by: Donis Macdonald M.D. 02/20/2024 12:31 PM PG Care Time/CCT Total # of Minutes Spent Total Time Spent with Patient: Total time spent is greater than 50% in coordination of care (as documented) at patient's floor/unit and/or counseling patient: I spent 65 minutes overall addressing this case: 20 min in medical data review/discussion with referring provider(s) and/or preparation for the visit 10min in direct interaction with the patient/exam 00 min in Advance Care Planning/Goals of Care discussions as detailed above in note (must be >16min) 15 min in subsequent review and synthesis of assessment and plan 20 min communicating with other providers regarding the patient's case: nursing, primary team [place] [address] IN/OBS CONSULT LVL 4,60M Patient Type New History Comprehensive Exam Comprehensive Medical Decision Making High Complexity Diagnoses Dyspnea and respiratory abnormalities R06.00; R06.89 Impaired swallowing R13.10 Generalized weakness R53.1 Adult failure to thrive R62.7 Palliative care by specialist Z51.5 Advanced care planning/counseling discussion Z71.89
--- NOTE | 2024-02-24 12:25 | CT Scan Report ---
CT angio neck with con CLINICAL HISTORY: facial droop TECHNIQUE: CT angiography of the neck was performed following intravenous administration of iodinated contrast. Coronal and sagittal MIPS were obtained from the axial data set and were submitted for rev iew. Automated dose lowering techniques and/or adjustment according to patient size were utilized fo r this examination. All measurements were calculated based on NASCET criteria. Comparison: Comparison is made to CT cervical spine 02/20/2024 FINDINGS: Lungs and soft tissues are unremarkable. CTA Neck: A 3 vessel aortic arch is shown. There is no significant atherosclerotic plaque in the aor tic arch or the origins of the innominate, left common carotid, and left subclavian arteries. The co mmon carotid, external carotid, cervical segments of the internal carotid arteries, and the cervical segments of the vertebral arteries are patent without hemodynamically significant stenosis. The left vertebral artery is dominant. IMPRESSION: No occlusion, hemodynamically significant stenosis, or dissection in the major cervical arteries. Assessment of stenosis of the internal carotid arteries is based on NASCET criteria. ACT 112: Negative or not required by law. Electronically signed by: Yung Woodson M.D. 02/24/2024 12:23 PM
--- NOTE | 2024-02-24 12:25 | CT Scan Report ---
HEAD CT NONCONTRAST CT DOSE: 939.34 mGy.cm HISTORY: facial droop TECHNIQUE: Multiaxial CT images of the head were performed without the use of intravenous contrast. A utomated exposure control was utilized for this study. A dose lowering technique was utilized adheri ng to the principles of ALARA. Comparison: Head CT 02/20/2024. Findings: The paranasal sinuses are clear. Stable chronic mastoid effusions are again noted. The calv arium and skull base are intact. There is no mass, hematoma, midline shift, acute infarct. White juanita er hypodensity is nonspecific but suggestive of microvascular ischemic change. The ventricles and sul ci demonstrate mild age-related involutional changes. Old small lacunar infarcts seen within the thal ami and bilateral basal ganglia. This remains unchanged. Impression: No significant change compared to the prior study. No acute intracranial abnormality. ACT 112: Negative or not required by law. Electronically signed by: Tung Godinez M.D. 02/24/2024 12:24 PM
--- NOTE | 2024-02-24 12:39 | CT Scan Report ---
CT angio head w con CLINICAL HISTORY: 78 years-old Female with facial droop. Acute strokelike symptoms COMPARISON STUDY: CTA head of same day, head CT 02/20/2024 TECHNIQUE: Following the IV administration of 119 cc of Optiray, CT angiogram of the brain was perfor med from the skull base to the vertex. Images are reviewed in the axial, sagittal, and coronal planes . 3-D MIPS images are created and assessed. IV contrast was administered without complication. All me asurements were obtained according to NASCET criteria. A dose lowering technique was utilized adherin g to the principles of ALARA. FINDINGS: CT ANGIOGRAM OF THE BRAIN: The imaged bilateral internal carotid arteries are patent. The bilateral anterior and middle cerebral arteries are also patent. There is a short segment focus of high-grade stenosis involving the proxim al P1 segment of the left posterior cerebral artery image 112 series 5. There is origin of the right posterior cerebral artery. There is no aneurysm, additional high-grade stenosis, or proximal br anch occlusion identified. Dural sinuses appear patent. Involutional changes with chronic microvascular ischemic disease. Prior bilateral lens repair. IMPRESSION: 1. Short segment high-grade stenosis of the P1 segment left posterior cerebral artery. 2. Otherwise unremarkable CTA of the head. ACT 112: Negative or not required by law. The above report was generated using voice recognition software. It may contain grammatical, syntax o r spelling errors. Electronically signed by: Isaac Gaming M.D. 02/24/2024 12:37 PM
[2024-02-24] MEDS: SODIUM CHLORIDE 0.9% 500 ML IV SCH (14:35)
--- NOTE | 2024-02-24 14:38 | Communication Note ---
Date of Service: February 24, 2024 Brief Pall Med Note FULL CONSULT and ACP/family meeting NOTE TO FOLLOW I met with pt family: dtrs Maria M and Latonya, Leah x 1 hr They elect DNR/DNI They would like time limited trial of TPN for a week while giving IV antifungal a chance to work on her severe thrush They would like to hold off on escalating to surgically placed feeding tube for now and see if a time limited trial with a less invasive method can help I have a follow up meeting tomorrow at 0930. Of note, daughter Maria M is medical and durable POA, formal documents arriving this evening - please assure they are scanned into [id number]. Nursing and Dr Bales updated Thank you for allowing us to participate in the ongoing care of this patient. Please don't hesitate to call or page with any additional concerns. Dr. Juliana Gomes DNP Director, Palliative Care
--- NOTE | 2024-02-24 15:00 | Hospitalist Progress Note ---
Date of Service February 24, 2024 Assessment & Plan (1) Adult failure to thrive: (2) Generalized weakness: (3) Fall: (4) Dysphagia: (5) GERD (gastroesophageal reflux disease): (6) SIADH (syndrome of inappropriate ADH production): (7) (HFpEF) heart failure with preserved ejection fraction: (8) Hypertension: (9) CAD (coronary artery disease): (10) Hypothyroidism: (11) Giant cell arteritis: (12) Raynaud's disease: Plan 78-year-old female with PMHx of SIADH, hypothyroidism, hyperlipidemia, history of allergic rhinitis, chronic diastolic CHF, history of CAD, status post stent to LAD, history of hypertension, legal blindness, history of retinal artery occlusion, orthostatic hypotension, Raynaud disease, constipation, osteoporosis, SLE, generalized anxiety disorder, cachectic state, chronic anemia, CVA, 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 Epidural Abscess Temporal bone osteomyelitis Pt was a stroke alert on 02/[address], CTA and neck CTA with no acute stroke Brain MRI with new epidural abscess per discussion with radiology, last MRI was Dec 2023 IV Vanc, cefepime, Flagyl ID consulted, appreciate recs Likely in setting of ?immunocompromised status (see below), on chronic prednisone at this time Family to have palliative care discussion tomorrow, previously scheduled Dysphagia Esophageal candidiasis Immunocompromised status Presenting with dysphagia over the last 5 days Pt with previous Hx of self restricting GI consulted, appreciate recs -s/p EGD on 02/20 -noted candidiasis throughout the esophagus -advised diflucan 400mg on 02/20, then 200mg daily for 20 more days -advance diet as tolerated Continue to monitor for signs of improvement Consider further workup to determine whether immunocompromised. Of note, on chronic prednisone at this time. Generalized Weakness Severe Protein Calorie Malnutrition Adult Failure to thrive Pt with BMI of 15 Pc Installation Engineer consulted, appreciate recs Psych consulted- superimposed eating disorder component Encourage po intake, family requesting temporary IV nutrition PT/OT Anemia Hgb around 11, previous baseline lower around 9 Possibly higher due to hemoconcentration in setting of dehydration (see below) AM anemia workup normal Supplement as needed based on the results Continue to monitor H/H Hyponatremia Appears chronic Sodium around 127-129 Pending AM urine osm and Na levels Consider Nephrology consult for further recs -tea toast syndrome -fluid restriction Hypophosphatemia Hypokalemia replete as needed Dehydration Ketonuria Ketonuria noted on UA NSS x 2 bags Impacted Cerumen Discussion with pt, and daughter outpt followup Daughter understandable and agreeable Debrox ear drops ordered Outpatient ENT followup after discharge HTN Continue home meds CHF Pt with noted history of diastolic dysfunction on Echo from 2017 Currently stable Monitor volume status CAD Continue home aspirin and plavix Hypothyroidism Continue levothyroxine Giant cell arteritis Being worked up by Dr. Dawn as outpatient, was scheduled day after admission for surgical biopsy however will miss this and will need rescheduled for follow- up Continue prednisone 40 mg daily currently, scheduled to reduce down to 20 mg on 02/26 to continue taper as per outpatient recs Also on tramadol 50 mg BID per pcp PRN morphine ordered Raynaud's disease Chronic, stable DVT prophylaxis: pt on plavix and aspirin with known anemia. Will continue with SCDs for DVT prophylaxis at this time. Diet: regular, minced and moist Dispo: PT/OT ordered Admission and Anticipated Discharge Date Admission Date: February 20, 2024 Subjective Pt was seen multiple times. stroke alert called after pt with noted facial droop thought to be new. Numbness and tingling to her face. Review of Systems Review of Systems: All systems reviewed & are unremarkable except as noted in Subjective Physical Exam Physical Exam: General: Alert, oriented. Thin, cachectic Psych: Appropriate mood and affect Neuro: difficulty with movements, facial droop, strength 5/5 symmetrical HEENT: NC/AT CV: RRR Resp: Breath sounds clear bilaterally, no increased effort of breathing. Abdomen: Soft Extremities: No edema in lower extremities bilaterally. Results & Data Results & Data Vital Signs (Past 12 Hours) Vital Signs Temp Pulse Resp BP BP Pulse Ox O2 Del Method 02/24/24 11:45 75 12 159/100 H 96 Room Air 02/24/24 09:37 162/82 H 02/24/24 09:00 Room Air 02/24/24 08:11 36.9 C 73 12 184/82 H 98 Room Air 02/24/24 03:31 136/77 02/24/24 03:02 68 184/84 H 98 Room Air
[2024-02-24] MEDS: GADOBUTROL 65ML VIAL IV ONE (17:41)
--- NOTE | 2024-02-24 18:23 | Palliative Family Discussion ---
Date of Service February 24, 2024 Patient Directed Conference Time of Meetin - 240pm face to face televideo ACP meeting with pt daughters Latonya and Maria M for 40 min then joined for remaining 30 min by pt Leah Meeting via [facility] Zoom, I was alone in my CCP office. Participants: Juliana Gomes DNP Patient participation: lacks capacity Patient Support System: daughters x2, Other Healthcare Provider Participation: A Janessa LUCAS Meeting Location: bedside with pt/family and telehealth [facility] Zoom for ia Advanced Directive available: Dtr Latonya provided an electronic copy of patient's recently signed Healthcare directive and power of estate attorney. She names her daughter Latonya as her power of estate attorney and healthcare POA. It is unclear to the daughters at this time if patient's is aware of these choices that patient has made. The estate attorney's office will drop off the formal copies of all power of estate attorney documents this evening to be copied and scanned into the electronic medical record [facility]. If yes, descriptors: Upon my review of the electronic power of estate attorney document submitted, there is not appear to be a clear directive of preferences other than to state that she trusts her daughter Latonya to make the decisions which would be in line with her wishes and preferences. The patient's surrogate medical decision maker participated: Yes, patient's daughter AYANA Hanks was present for this meeting A family meeting was held for ISADORA BOOKER. This meeting was necessary for determining the appropriate course of treatment Topics of Discussion Topics of Discussion: 1.Some discussion was held initially with her daughters for approximately 45 minutes with regards to their concerns about her overall health, her generalized decline, her neurologic changes, her debility and weakness, her malnutrition, and their desire to assure that she has some chance to optimize her nutrition given the fact that she cannot take p.o. due to her thrush. They relate that deandre ceja were offered a feeding tube and that they are awaiting a GI consultation to determine if she is a candidate for surgically placed feeding tube. Daughter Maria M then asked about the role of TPN, adding that she was told there is an IV option for nutrition. 2. Daughter states that the overall goal is to help patient improve her nutrition long enough to recover from this esophageal thrush infection and then resume taking p.o. per her usual baseline. They note that patient thoroughly enjoys eating and drinking though they are also honest that she has an eating disorder and tends to binge eat in between refusing to eat. They acknowledge that patient has always told them she would not want to be kept from eating and drinking as this is something that gives her a tremendous amount of pleasure and jared. Patient is legally blind and has significant hearing deficits which ultimately render her with a multi sensory deficit. 3. We were joined for the latter third of the meeting by patient's Jose Alberto. He states that in prior discussions, patient was always clear she would not want to be kept alive on machines. She did not want a tube placed down her throat or connected to life support. She would want to be treated for the things that could be treatable with the hopes of recovering and returning home. We discussed the option of feeding tube versus a trial of TPN and agreed that a time-limited trial of TPN would be a reasonable start. Daughters are aware that this trial would be approximately 5 to 7 days during which time it is hoped that her antifungal treatment for the thrush will accomplish its goals. We would then work towards resuming her normal prior to admission baseline diet. 4. Stroke workup is underway. We are awaiting an MRI. We discussed that much of what the potential neck steps could be will hinge upon the results of the MRI as this may dictate potential prognosis and then what options may be available based on that prognosis. We agreed to a follow-up meeting tomorrow morning at 930 at the patient's bedside. 5. We discussed CODE STATUS and CPR survival: Only about 10% of patients who have [id number] sudden cardiac arrest survive to hospital discharge, with many survivors having neurologic impairment. This rate is even lower among patients with serious coexisting conditions, ie chance of survival to hospital discharge for in-hospital CPR in older people is low to moderate (15%) and decreases with age, comorbidities, performance status and frailty: for pts > 70 yo, more than half of the patients who initially survived resuscitation in the hospital before hospital discharge. The pooled survival to discharge after in-hospital CPR was 18% for patients between 70 and 79 years old, 15% for patients between 80 and 89 years old and 11% for patients of 90 years and older. (Edmundo NATH, Titi TILLEY, Nona F, et al. Trends in short- and long-term survival among [id number] cardiac arrest patients alive at hospital arrival. Circulation 2014;130:8209-4217. AND Bebo Boateng, Baldomero T, Francisco R, et al. Performance of clinical risk scores to predict mortality and neurological outcome in cardiac arrest patients. Resuscitation 2019;136:21-29.) I recommended changing CODE STATUS to DNR/DNI with the plan to continue to treat what is treatable and fix what is fixable. I reinforced and reiterated to family that a choice of no code does not mean do not treat but rather that we would allow a natural if that were to occur in spite of escalating medical therapies. Family was in agreement with this recommendation and CODE STATUS was changed to no code. Other Content of Meetin. Opportunity given for participants to speak and ask questions. 2. Participants were assured of attention to patient comfort. 3. Reassurance provided. 4. Support was provided for informed, good-jessica decisions. 5. Emotions expressed by family were acknowledged and addressed. 6. Follow-up family meeting tomorrow morning at 930 7. Plan of Care: Continue current plan of care with a time-limited trial of TPN, with the overall goal of treating what is treatable and fixing what is fixable but if she has a natural , allow that and keep her comfortable and ensure there is no suffering or distress at the end of life. Time Involved in Meeting: I spent 90 minutes overall addressing this case: 72 Advance Care Planning/Goals of Care discussions as detailed above in note (must be >16min) 5 in subsequent review and synthesis of assessment and plan 15 in communicating with other providers regarding the patient's case: [] Thank you for allowing us to participate in the ongoing care of this patient. Please don't hesitate to call or page with any additional concerns. Dr. Juliana Gomes DNP Director, Palliative Care
--- NOTE | 2024-02-24 19:46 | Magnetic Resonance Report ---
MR brain wo/w con HISTORY: 78 years-old Female facial droop acute strokelike symptoms COMPARISON: Head CT of same day, brain MRI 01/13/2024 TECHNIQUE: Multiplanar multisequence MRI of the brain was obtained with and without IV contrast. FINDINGS: No evidence of acute or subacute infarct. Extra-axial restricted diffusion is noted within the basila r cisterns including the quadrigeminal plate cistern, left ambient, superior cerebellar cistern, prep ontine cistern and cerebellar pontine angle on the left measuring up to approximately 4.9 x 0.8 cm in transverse and AP dimensions measuring up to approximately 4 cm in craniocaudal dimension. This dat esponds with areas of heterogeneous ill-defined extra-axial intermediate T1 and T2 signal with periph eral enhancement extending along the inferior margin of the cerebellar tentorium. Cerebral venous sinuses and major arterial flow voids appear patent. Prior bilateral lens repair. Lar ge bilateral mastoid and middle ear effusions are noted with coalescing of the mastoid air cells on t he left. Involutional changes with extensive T2/FLAIR hyperintense foci throughout the white matter. Chronic basal ganglia lacunar infarcts. No abnormal intra-axial enhancement. There is decreased T1 si gnal within the left temporal bone/petrous apex on image 4 series 9. IMPRESSION: 1. Bilateral mastoid and middle ear effusions with decreased T1 signal within the left temporal bone which may represent developing osteomyelitis. 2. There is signal abnormality within the left basilar cisterns centered within the cerebellar pontin e angle with peripheral enhancement suggestive of an extra-axial 4 cm abscess abutting the left cereb ellar tentorium. 3. No evidence of acute or subacute infarct. 4. Involutional changes with chronic microvascular ischemic disease. ACT 112: Negative or not required by law. The above report was generated using voice recognition software. It may contain grammatical, syntax o r spelling errors. Electronically signed by: Isaac Gaming M.D. 02/24/2024 7:44 PM
[2024-02-24] MEDS ORDERED: VANCOMYCIN CONSULT ACTIVE PRN (20:26)
[2024-02-24] MEDS ORDERED: VANCOMYCIN HCL 750 MG in SODIUM CHLORIDE 0.9% 500 ML IV ONE (20:26)
[2024-02-24] MEDS ORDERED: VANCOMYCIN HCL 500 MG in SODIUM CHLORIDE 0.9% 500 ML IV SCH (20:30)
[2024-02-24] MEDS ORDERED: CARBAMIDE PEROXIDE 6.5% 15 ML BTL OT PRN (20:36)
[2024-02-24] MEDS: MoRPHine SULFATE 2 MG/ML CARP IV PRN (21:21)
[2024-02-24] MEDS: CEFEPIME 2,000 MG in SYRINGE 0 ML IV SCH (21:22)
[2024-02-24] MEDS: VANCOMYCIN HCL 1,000 MG in SODIUM CHLORIDE 0.9% 250 ML IV ONE (21:22)
[2024-02-24] MEDS: metroNIDAZOLE 500 MG/100 ML BAG IV SCH (21:22)
[2024-02-24] MEDS: ACETAMINOPHEN 1000 MG/100 ML IV IV ONE (22:42)
[2024-02-24] MEDS: ACETAMINOPHEN 10MG/ML Custom 650 MG in EMPTY BAG 0 ML IV PRN (23:24)
[2024-02-25] MEDS ORDERED: VANCOMYCIN HCL 750 MG in SODIUM CHLORIDE 0.9% 250 ML IV SCH (06:00)
[2024-02-25] MEDS: VANCOMYCIN HCL 1,000 MG in SODIUM CHLORIDE 0.9% 250 ML IV SCH (06:15)
[2024-02-25 07:02] LABS: Basophils # (auto) 0.01 K/uL (0.00-0.20); Basophils % (auto) 0.1 %; Eosinophils # (auto) 0.01 K/uL (0.00-0.50); Eosinophils % (auto) 0.1 %; Hematocrit (blood only) 35.1 % (37.0-47.0); Hemoglobin 12.1 g/dl (12.0-16.0); Immature Granulocytes # (auto) 0.08 K/uL (0.01-0.20); Immature Granulocytes % (auto) 0.5 %; Lymphocytes # (auto) 0.47 K/uL (1.20-3.40); Lymphocytes % (auto) 3.2 %; Mean Corpuscular Hemoglobin 28.2 pg (25.0-34.0); Mean Corpuscular Hgb Conc 34.5 g/dL (32.0-36.0); Mean Corpuscular Volume 81.8 fL (80.0-100.0); Mean Platelet Volume 8.7 fL (9.4-12.4); Monocytes # (auto) 1.71 K/uL (0.11-0.59); Monocytes % (auto) 11.6 %; Neutrophils % (auto) 84.5 %; Platelet Count 396 K/uL (130-400); RDW Coefficient of Variation 14.7 % (11.5-14.5); RDW Standard Deviation 43.6 fL (36.4-46.3); Red Blood Count 4.29 M/uL (4.20-5.40); White Blood Count 14.78 K/ul (4.8-10.8)
[2024-02-25 07:19] LABS: Albumin Globulin Ratio 1.2 (0.9-2); Albumin Level 3.4 gm/dl (3.4-5.0); BUN Creatinine Ratio 22.7 (10-20); Bilirubin,Total 0.6 mg/dl (0.2-1.0); Calcium 6.9 mg/dl (8.6-10.3); Creatinine Clr Calc Pharmacy 65.9 ml/min; Est GFR (African American) 113.6 ml/min; Est GFR (Non-African American) 98.1 ml/min; Globulin 2.9 gm/dl (2.5-4.0); Magnesium 1.7 mg/dl (1.7-2.4); Potassium 2.9 mmol/L (3.5-5.1); Total Protein 6.3 gm/dl (6.0-8.3)
[2024-02-25] MEDS: PROMETHAZINE HCL 6.25 MG in SODIUM CHLORIDE 0.9% 50 ML IV PRN (08:34)
[2024-02-25] MEDS ORDERED: DEXTROSE 10% 1,000 ML IV PRN (11:06)
[2024-02-25] MEDS ORDERED: TPN/PPN CONSULT PHARMACY STA (11:06)
[2024-02-25] MEDS ORDERED: POTASSIUM PHOS 3 MMOL/1 ML INFUSION IV STA (11:08)
[2024-02-25] MEDS ORDERED: TPN/PPN CONSULT PHARMACY PRN (12:05)
[2024-02-25] MEDS: POTASSIUM PHOSPHATE 21 MMOL in SODIUM CHLORIDE 0.9% 500 ML IV ONE (12:38)
--- NOTE | 2024-02-25 13:13 | Hospitalist Progress Note ---
Date of Service February 25, 2024 Assessment & Plan (1) Adult failure to thrive: (2) Generalized weakness: (3) Fall: (4) Dysphagia: (5) GERD (gastroesophageal reflux disease): (6) SIADH (syndrome of inappropriate ADH production): (7) (HFpEF) heart failure with preserved ejection fraction: (8) Hypertension: (9) CAD (coronary artery disease): (10) Hypothyroidism: (11) Giant cell arteritis: (12) Raynaud's disease: Plan 78-year-old female with PMHx of SIADH, hypothyroidism, hyperlipidemia, history of allergic rhinitis, chronic diastolic CHF, history of CAD, status post stent to LAD, history of hypertension, legal blindness, history of retinal artery occlusion, orthostatic hypotension, Raynaud disease, constipation, osteoporosis, SLE, generalized anxiety disorder, cachectic state, chronic anemia, CVA, 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 Epidural Abscess Temporal bone osteomyelitis Pt was a stroke alert on 02/[address], CTA and neck CTA with no acute stroke Brain MRI with new epidural abscess per discussion with radiology, last MRI was Dec 2023 Also concern for temporal bone osteomyelitis On IV Vanc, cefepime, Flagyl Family declining neurosurgical evaluation at this time ID consulted, appreciate recs -blood cultures -continue abx Vanc, Cefepime and Flagyl Likely in setting of immunocompromised status (see below), on chronic prednisone and plaquanil at this time. CONSIDER DISCONTINUATION AFTER FAMILY DISCUSSION IN SETTING OF NEED TO TREAT INFECTION (holding home plaquanil, consider prednisone taper) Family had palliative care discussion -declining neurosurgical evaluation -would like IV abx treatment with reimaging Dysphagia Esophageal candidiasis Immunocompromised status Presenting with dysphagia over the last 5 days Pt with previous Hx of self restricting GI consulted, appreciate recs -s/p EGD on 02/20 -noted candidiasis throughout the esophagus -advised diflucan 400mg on 02/20, then 200mg daily for 20 more days -advance diet as tolerated Continue to monitor for signs of improvement On immunosuppressants plaquanil and prednisone, consider discontinuation in setting of acute infection and need to treat acute infection -plaquanil on hold -consider taper of daily prednisone Generalized Weakness Severe Protein Calorie Malnutrition Adult Failure to thrive Pt with BMI of 15 Machine Tack Puller consulted, appreciate recs Psych consulted- superimposed eating disorder component Encourage po intake, family requesting temporary IV nutrition PT/OT PPN to start on 02/25- monitor for refeeding syndrome, replete electrolytes as needed Anemia Hgb around 11, previous baseline lower around 9 Possibly higher due to hemoconcentration in setting of dehydration (see below) AM anemia workup normal Supplement as needed based on the results Continue to monitor H/H Hyponatremia Appears chronic Sodium around 127-129 Pending AM urine osm and Na levels Nephrology consulted for further recs -tea toast syndrome -fluid restriction Hypophosphatemia Hypokalemia replete as needed Dehydration Ketonuria Ketonuria noted on UA NSS x 2 bags Impacted Cerumen Discussion with pt, and daughter outpt followup Daughter understandable and agreeable Debrox ear drops ordered Outpatient ENT followup after discharge HTN Continue home meds CHF Pt with noted history of diastolic dysfunction on Echo from 2016 Currently stable Monitor volume status CAD Continue home aspirin and plavix Hypothyroidism Continue levothyroxine Giant cell arteritis Being worked up by Dr. Dawn as outpatient, was scheduled day after admission for surgical biopsy however will miss this and will need rescheduled for follow- up Continue prednisone 40 mg daily currently, scheduled to reduce down to 20 mg on 02/26 to continue taper as per outpatient recs Also on tramadol 50 mg BID per pcp PRN morphine ordered Raynaud's disease Chronic, stable DVT prophylaxis: pt on plavix and aspirin with known anemia. Will continue with SCDs for DVT prophylaxis at this time. Diet: regular, minced and moist Dispo: PT/OT ordered Admission and Anticipated Discharge Date Admission Date: February 20, 2024 Subjective Pt seen with daughters at bedside, . Would like PPN, ok to start tomorrow due to need for electrolyte replacement Family declining neurosurgical evaluation. Would like IV abx treatment Review of Systems Review of Systems: All systems reviewed & are unremarkable except as noted in Subjective Physical Exam Physical Exam: General: Alert, oriented. Thin, cachectic Psych: Appropriate mood and affect Neuro: difficulty with movements, facial droop, strength 5/5 symmetrical HEENT: NC/AT CV: RRR Resp: Breath sounds clear bilaterally, no increased effort of breathing. Abdomen: Soft Extremities: No edema in lower extremities bilaterally. Results & Data Results & Data Vital Signs (Past 12 Hours) Vital Signs Temp Pulse Resp BP Pulse Ox O2 Del Method 02/25/24 08:00 Room Air 02/25/24 07:51 36.8 C 76 16 185/97 H 98 Room Air
--- NOTE | 2024-02-25 13:50 | Communication Note ---
Date of Service: February 25, 2024 reconsult was placed for feeding tube. chart reviewed. per communication 02/24/24, family and patient wish to hold off on escalating to a feeding tube at this time and see if a time limited trial of TPN helps. If not seeing benefit and patient/family are interested in feeding tube, please reconsult.
--- NOTE | 2024-02-25 14:06 | Pharmacy Report ---
Pharmacy PK ABX Note - Date of Service February 25, 2024 - Assessment and Plan Assessment 78 year old F receiving empiric vancomycin, cefepime, and metronidazole for treatment of epidural abscess/temporal bone osteomyelitis based on brain MRI findings. Infectious diseases consulted. Patient w/ complicated PMH including failure to thrive, SIADH, CHF, immunocompromise (chronic prednisone), and esophageal candidiasis (receiving fluconazole). No culture data. Renal function appears to be at/near baseline. Patient afebrile over past 48 hours, but w/ leukocytosis (WBC: ~15 K). Patient is of very low body weight, will obtain early vancomycin level in light of this. Day # 2 of antimicrobial therapy. Plan Vancomycin * Loading dose: 1000 mg IV x 1, followed by another 1 g dose x 1 ~8 hours later * Maintenance dose: 750 mg IV every 12 hours * Regimen is predicted to achieve target AUC/GISELE of 400-600 mg/L.hr * Random level ordered for: 02/26/24 Pharmacy will continue to follow and will adjust dose/frequency as necessary. Thank you. Pharmacy has transitioned to AUC monitoring for vancomycin. AUC/GISELE is the preferred PK/PD target and is associated with decreased risk of nephrotoxicity compared to traditional trough targets.
--- NOTE | 2024-02-25 14:41 | Infectious Disease Consult ---
Date of Service February 25, 2024 Telehealth Information I performed this visit using a real-time telehealth connection between my location and the patients location ([facility]). After connecting through interactive tele-video, patient was identified by name and date of and/or wristband check.Patient (or authorized healthcare claim representative) was informed that this was a telemedicine visit and it was being conducted confidentially over secure lines. My office door was closed and no one else was present in the room with me.Patient (or authorized healthcare claim representative) provided consent to proceed with the visit, expressed an understanding of privacy and security of the telemedicine visit, and gave permission to have a hospital claim representative in the room in order to assist with the visit and to conduct portions of the visit, as needed. I informed the patient (or authorized healthcare claim representative) that I reviewed their record and presented the opportunity for them to ask any questions regarding the visit today. The patient agreed to participate. Assessment & Plan (1) Impaired swallowing: (2) Giant cell arteritis: (3) Dysphagia: (4) Adult failure to thrive: (5) Systemic lupus: (6) Osteomyelitis: (7) Esophageal candidiasis: Plan -Check blood cultures, yield very low at this point given broad spectrum antibiotics -If pursing aggressive treatment recommend cultures of the bone or abscess from IR, consider neurosurgery evaluation depending on goals of care -Agree with continuing fluconazole for esophageal candidiasis -Continue metronidazole, cefepime, and vancomycin, without culture data will need at least 6 weeks broad spectrum abx with reimaging History of Present Illness History of Present Illness Pt w/ pmhx of SIADH, CHF, CAD, HTN, SLE, CVA, Giant cell arteritis on steroids outpatient who is presenting with recurrent left hip disarticulation. When the hip dislocated she was standing still and her leg gave way. In the ED her hip was reduced. She has also had difficulty eating in the days leading up to admission. EGD was performed which showed diffuse plaques throughout her esophagus concerning for candidiasis. During her stay she was noted to have facial droop which was investigated by brain MRI which showed possible temporal osteomyelitis, inner ear effusions and There is signal abnormality within the left basilar cisterns centered within the cerebellar pontine angle with peripheral enhancement suggestive of an extra-axial 4 cm abscess abutting the left cerebellar tentorium. Palliative care is following the patient. She is currently receiving vancomycin, cefepime, and flagyl. Allergies Allergy/AdvReac Type Severity Reaction Status Date / Time venlafaxine Allergy Mild RASH Verified 02/02/23 17:38 Sulfa (Sulfonamide Allergy Unknown UNKNOWN Verified 02/02/23 17:38 Antibiotics) REACTION TO SULFA DRUGS tomato AdvReac Unknown Verified 02/02/23 17:38 Home Medications Medication Instructions Recorded Confirmed Type cholecalciferol (vitamin D3) 25 2,000 unit PO QAM 03/04/19 02/20/24 History mcg (1,000 unit) capsule (Vitamin D3) clobetasol 0.05 % shampoo 1 applic topical DIRECTED PRN 03/04/19 02/20/24 History for flare up of lupus docusate sodium 100 mg capsule 200 mg PO QAM 03/04/19 02/20/24 History (Colace) hydroxychloroquine 200 mg tablet 200 mg PO HS 03/04/19 02/20/24 History (Plaquenil) lactobacillus combination no.4 3 3,000 mmu cells PO QAM 03/04/19 02/20/24 History billion cell capsule (Probiotic) lisinopril 2.5 mg tablet 2.5 mg PO HS 08/14/22 02/20/24 History metoprolol succinate 25 mg 25 mg PO QAM 08/14/22 02/20/24 History tablet,extended release 24 hr clobetasol 0.05 % topical cream 1 applic topical BID PRN .FLARES 12/31/22 02/20/24 History clopidogrel 75 mg tablet 75 mg PO DAILY 12/31/22 02/20/24 History cyclosporine 0.05 % eye drops in a 1 drp OPB Q12H PRN Dry Eye(S) 12/31/22 02/20/24 History dropperette denosumab 60 mg/mL subcutaneous 60 mg subcut Q6M 12/31/22 02/20/24 History syringe (Prolia) fluticasone propionate 50 2 spray intranasal DAILY Allergy 12/31/22 02/20/24 History mcg/actuation nasal Symptoms spray,suspension furosemide 20 mg tablet 20 mg PO QAM 12/31/22 02/20/24 History multivitamin 1 tab PO DAILY 12/31/22 02/20/24 History nitroglycerin 0.4 mg sublingual 0.4 mg sublingual .DAILY/PRN PRN 12/31/22 02/20/24 History tablet Chest Pain tacrolimus 0.1 % topical ointment 1 applic topical BID PRN flare up 12/31/22 02/20/24 History of lupus zinc acetate 50 mg (zinc) capsule 50 mg PO QAM 12/31/22 02/20/24 History levothyroxine 100 mcg tablet 112 mcg PO DAILYBB 02/02/23 02/20/24 History (Synthroid) meclizine 25 mg tablet 25 mg PO TID PRN dizziness #14 tabs 01/13/24 02/20/24 Rx aspirin 81 mg tablet,delayed 81 mg PO QAM 02/20/24 02/20/24 History release atorvastatin 80 mg tablet 80 mg PO QAM 02/20/24 02/20/24 History azelastine 137 mcg (0.1 %) nasal 1 spray intranasal AMHS 02/20/24 02/20/24 History spray aerosol cetirizine 10 mg tablet 10 mg PO DAILY PRN rhinitis 02/20/24 02/20/24 History omeprazole 20 mg capsule,delayed 20 mg PO DAILYBB 02/20/24 02/20/24 History release polyethylene glycol 3350 17 34 g PO DAILY 02/20/24 02/20/24 History gram/dose oral powder (Miralax) prednisone 10 mg tablet See Rx Instructions .Route .COMPLEX 02/20/24 02/20/24 History prednisone 20 mg tablet 40 mg PO QAM 02/20/24 02/20/24 History sennosides 8.6 mg tablet (senna) 8.6 mg PO BID PRN Constipation 02/20/24 02/20/24 History tramadol 50 mg tablet 50 mg PO AMHS 02/20/24 02/20/24 History Patient History Medical History (Updated 02/25/24 @ 15:01 by Dedra Mathews MD) Advanced care planning/counseling discussion Palliative care by specialist Dyspnea and respiratory abnormalities Impaired swallowing CAD (coronary artery disease) History of blood transfusion "with every surgery" Coronary artery disease s/p 5 stents in 2017 Raynaud's disease Diastolic heart failure EF 58%, follows with [facility] cardio SIADH (syndrome of inappropriate ADH production) Degenerative disc disease Chronic back pain GERD (gastroesophageal reflux disease) diet controlled Hypothyroidism Hypoglycemia with associated syncope, last syncopal episode colonoscopy fasting 8 yrs ago On anticoagulant therapy Systemic lupus follows with [facility] Rheumatology 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 no longer sees a neurologist. Myocardial Infarction (~2016) follows with Dr Jean Baptiste Hypertension controlled, stable per pt Surgical History Hx of vaginal hysterectomy History of open reduction and internal fixation (ORIF) procedure right wrist History of total hip arthroplasty left History of esophagogastroduodenoscopy (EGD) History of colonoscopy History of cataract surgery bilateral History of tonsillectomy History of heart artery stent (~2016) x5 stents (at [facility]) History of cardiac cath (~2016) at [facility] -5 stents-2017 S/P lumbar fusion x2 Family History Other No family history of adverse response to anesthesia Social History Smoking Status: Former smoker Tobacco Type: Cigarettes Cigarettes Per Day: 6-8; Second Hand Exposure: No; Do You Dip or Chew Tobacco: No; Hx Alcohol Use: Yes Alcohol type: wine Hx Substance Use: No Preferred Language: Norwegian Communication Ability: Effective Communication Ability Comment: legally blind Visual Impairment: No Limitations Hearing Ability: Normal [employer] Head Required: No Beliefs That Will Affect Care: None marital status: Current Living Situation: Spouse Current Living Situation Comment: Lives at home with current occupational status: retired Other Information That Helps Us Care for You: No Feels Safe at Home: Yes Safety Concerns: Feels Safe At This Time Assistive Devices: Cane, Walker and Other Assistive Devices Comment: upper and lower partials Review of Systems Full review of systems was performed as was otherwise negative unless mentioned in HPI Physical Exam Exam limited by telemed Cachectic Results & Data Vital Signs (Past 12 Hours) Vital Signs Temp Pulse Resp BP Pulse Ox O2 Del Method 02/25/24 08:00 Room Air 02/25/24 07:51 36.8 C 76 16 185/97 H 98 Room Air Laboratory Results Abnormal Labs 02/20/24 02/21/24 02/21/24 11:55 04:15 06:42 WBC RBC 4.19 L Hgb 11.7 L Hct 34.7 L 34.3 L RDW Coeff of [place] Plt Count 487 H 418 H MPV 8.8 L 8.6 L Neut # (Auto) 9.14 H Lymph # (Auto) 0.21 L [place] # (Auto) Sodium 129 L 127 L Potassium 3.0 L Chloride 88 L 88 L BUN 28 H Creatinine BUN/Creatinine Ratio 32.6 H 30.0 H Glucose 106 H POC Glucose Osmolality Calcium 8.4 L Phosphorus Magnesium 2.6 H Vitamin B12 Urine pH 8.0 H Urine Protein Trace H Urine Ketones Trace H U Epithel Cells (Auto) 5-10 H Urine Osmolality 02/22/24 02/23/24 02/23/24 06:36 05:47 06:17 WBC RBC 4.04 L Hgb 11.3 L 11.9 L Hct 33.5 L 34.6 L RDW Coeff of [place] 14.6 H Plt Count 412 H MPV 8.5 L 8.6 L Neut # (Auto) 8.24 H Lymph # (Auto) 0.39 L 0.59 L [place] # (Auto) 0.74 H 1.18 H Sodium 128 L 128 L Potassium 3.1 L Chloride 90 L 91 L BUN Creatinine 0.51 L BUN/Creatinine Ratio 27.3 H 23.5 H Glucose POC Glucose Osmolality Calcium 8.2 L 7.7 L Phosphorus 1.2 L* D Magnesium Vitamin B12 1123 H Urine pH Urine Protein Urine Ketones U Epithel Cells (Auto) Urine Osmolality 400 L 02/24/24 02/24/24 02/25/24 05:56 11:45 06:38 WBC 14.78 H RBC 3.95 L Hgb 11.1 L Hct 32.2 L 35.1 L RDW Coeff of [place] 14.6 H 14.7 H Plt Count MPV 8.5 L 8.7 L Neut # (Auto) 7.55 H 12.50 H Lymph # (Auto) 0.50 L 0.47 L [place] # (Auto) 1.05 H 1.71 H Sodium 127 L 127 L Potassium 3.0 L 2.9 L Chloride 94 L 91 L BUN Creatinine 0.43 L 0.44 L BUN/Creatinine Ratio 25.6 H 22.7 H Glucose POC Glucose 110 H Osmolality 260 L Calcium 6.6 L 6.9 L Phosphorus 2.0 L Magnesium Vitamin B12 Urine pH Urine Protein Urine Ketones U Epithel Cells (Auto) Urine Osmolality Diagnostic Findings Cervical Spine CT 02/20/24 11:41 CT cervical spine wo con CT DOSE: 905.77 mGy.cm CLINICAL HISTORY: 78 years-old Female with fall. Acute neck pain status post fall COMPARISON: Head CT of same day TECHNIQUE: Multiple axial CT images of the cervical spine were obtained without contrast. A dose lowering technique was utilized adhering to the principles of ALARA. FINDINGS: Bilateral mastoid and left middle ear effusions. Reversal of the normal cervical lordosis. No acute fracture identified. Grade 1 anterolisthesis C3 on C4 is noted with facet arthrosis, most advanced on the left. Severe disc space narrowing at C3-C4, C4-C5 and C5-C6. Moderate multilevel spondylotic spurring with moderate to severe facet arthrosis. No acute fracture or subluxation. Lung apices are clear. No pneumothorax. Unremarkable soft tissues. IMPRESSION: No acute cervical spine fracture identified. ACT 112: Negative or not required by law. The above report was generated using voice recognition software. It may contain grammatical, syntax or spelling errors. Electronically signed by: Isaac Gaming M.D. 02/20/2024 12:35 PM Chest X-Ray 02/20/24 11:41 XR chest 1V not portable CLINICAL HISTORY: weakness COMPARISON STUDY: Chest CT April 30, 2017. Chest radiograph April 09, 2023. FINDINGS: There is no pneumothorax or pleural effusion. No consolidation is identified to suggest pneumonia. No evidence for pulmonary edema. Cardiomediastinal silhouette is stable. Several old left rib fractures are incidentally noted. IMPRESSION: No acute cardiopulmonary findings. ACT 112: Negative or not required by law. Electronically signed by: Christian Zambrano M.D. 02/20/2024 12:[address] 02/20/24 11:41 CT SCAN OF THE BRAIN WITHOUT IV CONTRAST CLINICAL HISTORY: Fall. Generalized weakness. COMPARISON STUDY: CT and MRI of the brain dated 01/13/2024 TECHNIQUE: Unenhanced axial CT scan of the brain is performed from the vertex to the skull base. A dose lowering technique was utilized adhering to the principles of ALARA. FINDINGS: Brain parenchyma: There is age-related involutional change noting moderate to advanced subcortical and periventricular microangiopathic disease. There is no hemorrhage, mass effect, or evidence of acute territorial ischemia by CT criteria. Small chronic lacunar infarcts are noted in the basal ganglia and thalami. Perez-white matter differentiation is preserved. No extra-axial fluid collection is seen. Ventricles, sulci, cisterns: Prominent secondary to involutional change. Intracranial vasculature: There is atherosclerotic calcification of the cavernous carotid and vertebral arteries. Calvarium: The skeletal structures are osteopenic. No depressed calvarial fracture is seen. Sinuses and mastoids: The visualized paranasal sinuses are clear. There are bilateral mastoid effusions. Orbits: The bony orbits are grossly intact. There are bilateral ocular lens implants. IMPRESSION: There is no hemorrhage, mass effect, or evidence of acute territorial ischemia by CT criteria. ACT 112: Negative or not required by law. Electronically signed by: Donis Macdonald M.D. 02/20/2024 12:[address] 02/24/24 11:[address] DOSE: 939.34 mGy.cm HISTORY: facial droop TECHNIQUE: Multiaxial CT images of the head were performed without the use of intravenous contrast. Automated exposure control was utilized for this study. A dose lowering technique was utilized adhering to the principles of ALARA. Comparison: Head CT 02/20/2024. Findings: The paranasal sinuses are clear. Stable chronic mastoid effusions are again noted. The calvarium and skull base are intact. There is no mass, hematoma, midline shift, acute infarct. White matter hypodensity is nonspecific but suggestive of microvascular ischemic change. The ventricles and sulci demonstrate mild age-related involutional changes. Old small lacunar infarcts seen within the thalami and bilateral basal ganglia. This remains unchanged. Impression: No significant change compared to the prior study. No acute intracranial abnormality. ACT 112: Negative or not required by law. Electronically signed by: Tung Godinez M.D. 02/24/2024 12:24 PM Neck CTA 02/24/24 11:37 CT angio neck with con CLINICAL HISTORY: facial droop TECHNIQUE: CT angiography of the neck was performed following intravenous administration of iodinated contrast. Coronal and sagittal MIPS were obtained from the axial data set and were submitted for review. Automated dose lowering techniques and/or adjustment according to patient size were utilized for this examination. All measurements were calculated based on NASCET criteria. Comparison: Comparison is made to CT cervical spine 02/20/2024 FINDINGS: Lungs and soft tissues are unremarkable. CTA Neck: A 3 vessel aortic arch is shown. There is no significant atherosclerotic plaque in the aortic arch or the origins of the innominate, left common carotid, and left subclavian arteries. The common carotid, external carotid, cervical segments of the internal carotid arteries, and the cervical segments of the vertebral arteries are patent without hemodynamically significant stenosis. The left vertebral artery is dominant. IMPRESSION: No occlusion, hemodynamically significant stenosis, or dissection in the major cervical arteries. Assessment of stenosis of the internal carotid arteries is based on NASCET criteria. ACT 112: Negative or not required by law. Electronically signed by: Yung Woodson M.D. 02/24/2024 12:23 PM Head CTA 02/24/24 11:38 CT angio head w con CLINICAL HISTORY: 78 years-old Female with facial droop. Acute strokelike symptoms COMPARISON STUDY: CTA head of same day, head CT 02/20/2024 TECHNIQUE: Following the IV administration of 119 cc of Optiray, CT angiogram of the brain was performed from the skull base to the vertex. Images are reviewed in the axial, sagittal, and coronal planes. 3-D MIPS images are created and assessed. IV contrast was administered without complication. All measurements were obtained according to NASCET criteria. A dose lowering technique was utilized adhering to the principles of ALARA. FINDINGS: CT ANGIOGRAM OF THE BRAIN: The imaged bilateral internal carotid arteries are patent. The bilateral anterior and middle cerebral arteries are also patent. There is a short segment focus of high-grade stenosis involving the proximal P1 segment of the left posterior cerebral artery image 112 series 5. There is origin of the right posterior cerebral artery. There is no aneurysm, additional high-grade stenosis, or proximal branch occlusion identified. Dural sinuses appear patent. Involutional changes with chronic microvascular ischemic disease. Prior bilateral lens repair. IMPRESSION: 1. Short segment high-grade stenosis of the P1 segment left posterior cerebral artery. 2. Otherwise unremarkable CTA of the head. ACT 112: Negative or not required by law. The above report was generated using voice recognition software. It may contain grammatical, syntax or spelling errors. Electronically signed by: Isaac Gaming M.D. 02/24/2024 12:37 PM Brain MRI 02/24/24 14:35 MR brain wo/w con HISTORY: 78 years-old Female facial droop acute strokelike symptoms COMPARISON: Head CT of same day, brain MRI 01/13/2024 TECHNIQUE: Multiplanar multisequence MRI of the brain was obtained with and without IV contrast. FINDINGS: No evidence of acute or subacute infarct. Extra-axial restricted diffusion is noted within the basilar cisterns including the quadrigeminal plate cistern, left ambient, superior cerebellar cistern, prepontine cistern and cerebellar pontine angle on the left measuring up to approximately 4.9 x 0.8 cm in transverse and AP dimensions measuring up to approximately 4 cm in craniocaudal dimension. This corresponds with areas of heterogeneous ill-defined extra-axial intermediate T1 and T2 signal with peripheral enhancement extending along the inferior margin of the cerebellar tentorium. Cerebral venous sinuses and major arterial flow voids appear patent. Prior bilateral lens repair. Large bilateral mastoid and middle ear effusions are noted with coalescing of the mastoid air cells on the left. Involutional changes with extensive T2/FLAIR hyperintense foci throughout the white matter. Chronic basal ganglia lacunar infarcts. No abnormal intra-axial enhancement. There is decreased T1 signal within the left temporal bone/petrous apex on image 4 series 9. IMPRESSION: 1. Bilateral mastoid and middle ear effusions with decreased T1 signal within the left temporal bone which may represent developing osteomyelitis. 2. There is signal abnormality within the left basilar cisterns centered within the cerebellar pontine angle with peripheral enhancement suggestive of an extra- axial 4 cm abscess abutting the left cerebellar tentorium. 3. No evidence of acute or subacute infarct. 4. Involutional changes with chronic microvascular ischemic disease. ACT 112: Negative or not required by law. The above report was generated using voice recognition software. It may contain grammatical, syntax or spelling errors. Electronically signed by: Isaac Gaming M.D. 02/24/2024 7:44 PM Medications Administered Home Medications Medication Instructions Recorded Confirmed Last Taken cholecalciferol (vitamin D3) 25 2,000 unit PO QAM 03/04/19 02/20/24 02/19/24 mcg (1,000 unit) capsule (Vitamin D3) clobetasol 0.05 % shampoo 1 applic topical DIRECTED PRN 03/04/19 02/20/24 Unknown for flare up of lupus docusate sodium 100 mg capsule 200 mg PO QAM 03/04/19 02/20/24 02/19/24 (Colace) hydroxychloroquine 200 mg tablet 200 mg PO HS 03/04/19 02/20/24 02/19/24 (Plaquenil) lactobacillus combination no.4 3 3,000 mmu cells PO QAM 03/04/19 02/20/24 02/19/24 billion cell capsule (Probiotic) lisinopril 2.5 mg tablet 2.5 mg PO HS 08/14/22 02/20/24 02/19/24 metoprolol succinate 25 mg 25 mg PO QAM 08/14/22 02/20/24 02/19/24 tablet,extended release 24 hr clobetasol 0.05 % topical cream 1 applic topical BID PRN .FLARES 12/31/22 02/20/24 Unknown clopidogrel 75 mg tablet 75 mg PO DAILY 12/31/22 02/20/24 02/19/24 cyclosporine 0.05 % eye drops in a 1 drp OPB Q12H PRN Dry Eye(S) 12/31/22 02/20/24 Unknown dropperette denosumab 60 mg/mL subcutaneous 60 mg subcut Q6M 12/31/22 02/20/24 Unknown syringe (Prolia) fluticasone propionate 50 2 spray intranasal DAILY Allergy 12/31/22 02/20/24 02/19/24 mcg/actuation nasal Symptoms spray,suspension furosemide 20 mg tablet 20 mg PO QA 12/31/22 02/20/24 02/19/24 multivitamin 1 tab PO DAILY 12/31/22 02/20/24 02/19/24 nitroglycerin 0.4 mg sublingual 0.4 mg sublingual .DAILY/PRN PRN 12/31/22 02/20/24 Unknown tablet Chest Pain tacrolimus 0.1 % topical ointment 1 applic topical BID PRN flare up 12/31/22 02/20/24 Unknown of lupus zinc acetate 50 mg (zinc) capsule 50 mg PO QAM 12/31/22 02/20/24 02/19/24 levothyroxine 100 mcg tablet 112 mcg PO DAILYBB 02/02/23 02/20/24 02/19/24 (Synthroid) meclizine 25 mg tablet 25 mg PO TID PRN dizziness #14 tabs 01/13/24 02/20/24 Unknown aspirin 81 mg tablet,delayed 81 mg PO QAM 02/20/24 02/20/24 02/19/24 release atorvastatin 80 mg tablet 80 mg PO QAM 02/20/24 02/20/24 02/19/24 azelastine 137 mcg (0.1 %) nasal 1 spray intranasal AMHS 02/20/24 02/20/24 Unknown spray aerosol cetirizine 10 mg tablet 10 mg PO DAILY PRN rhinitis 02/20/24 02/20/24 Unknown omeprazole 20 mg capsule,delayed 20 mg PO DAILYBB 02/20/24 02/20/24 02/19/24 release polyethylene glycol 3350 17 34 g PO DAILY 02/20/24 02/20/24 02/19/24 gram/dose oral powder (Miralax) prednisone 10 mg tablet See Rx Instructions .Route .COMPLEX 02/20/24 02/20/24 Unknown prednisone 20 mg tablet 40 mg PO QAM 02/20/24 02/20/24 02/19/24 sennosides 8.6 mg tablet (senna) 8.6 mg PO BID PRN Constipation 02/20/24 02/20/24 Unknown tramadol 50 mg tablet 50 mg PO AMHS 02/20/24 02/20/24 02/19/24 hs Active Medications Generic Name Dose Route Start Last Admin Trade Name Freq PRN Reason Stop Dose Admin Acetaminophen 650 mg 02/20/24 17:49 02/24/24 02:29 Acetaminophen 325 Mg Tab PO 03/21/24 17:48 650 mg Q4H PRN Administration Moderate Pain (Scale 4, 5, 6) Aspirin 81 mg 02/21/24 09:00 02/25/24 08:43 Aspirin 81 Mg Ectab PO 03/22/24 08:59 Not Given [facility] Atorvastatin Calcium 80 mg 02/21/24 09:00 02/25/24 08:43 Atorvastatin 40 Mg Tab PO 03/22/24 08:59 Not Given [facility] Azelastine HCl 1 sprays 02/20/24 21:00 02/25/24 08:41 Azelastine Hcl 0.1% Nasal 200 Sprays/27,400 Mcg Btl NA 03/21/24 20:59 Not Given [facility] Clopidogrel Bisulfate 75 mg 02/20/24 20:30 02/25/24 08:43 Clopidogrel Bisulfate 75 Mg Tab PO 03/21/24 20:29 Not Given DAILY KIRSTEN Docusate Sodium 200 mg 02/20/24 17:49 02/25/24 08:36 Docusate Sodium 100 Mg Cap PO 03/21/24 17:48 Not Given QAM KIRSTEN Fluconazole 200 mg 02/22/24 09:00 02/25/24 08:39 Fluconazole 100 Mg Tab PO 03/13/24 08:59 200 mg QAM KIRSTEN Administration Fluticasone Propionate 2 sprays 02/20/24 17:49 02/25/24 08:41 Fluticasone Propionate Na Spr 16 Gm Btl NA 03/21/24 17:48 Not Given DAILY KIRSTEN Hydralazine HCl 5 mg 02/20/24 18:01 02/24/24 21:32 Hydralazine Hcl 20 Mg/Ml Vial IV 03/21/24 18:00 5 mg Q4H PRN Administration Hypertension Hydroxychloroquine Sulfate 200 mg 02/20/24 21:00 02/24/24 22:01 Hydroxychloroquine Sulfate 200 Mg Tab PO 03/21/24 20:59 Not Given HS KIRSTEN Pantoprazole Sodium 40 mg/ 10 mls @ 5 mls/min 02/20/24 21:00 02/25/24 08:36 Syringe IV 03/21/24 20:59 5 mls/min BID KIRSTEN Administration Promethazine HCl 6.25 mg/ 50.25 mls @ 201 mls/hr 02/22/24 20:01 02/25/24 09:08 Sodium Chloride IV 03/23/24 20:00 Infused Q6H PRN Infusion Nausea And Vomiting Cefepime HCl 2,000 mg/ Syringe 20 mls @ 5 mls/min 02/24/24 21:00 02/25/24 12:14 IV 03/05/24 20:59 5 mls/min Q8H KIRSTEN Administration Protocol Metronidazole 500 mg in 100 mls @ 100 mls/hr 02/24/24 21:00 02/25/24 13:44 Flagyl IV 03/05/24 20:59 Infused Q8H KIRSTEN Infusion Protocol Acetaminophen 650 mg/ EMPTY 65 mls @ 400 mls/hr 02/24/24 22:22 02/24/24 23:51 BAG IV 03/25/24 22:21 Infused Q8H PRN Infusion pain/fever Potassium Phosphate 21 mmol/ 507 mls @ 88 mls/hr 02/25/24 12:00 02/25/24 12:38 Sodium Chloride IV 02/25/24 17:45 88 mls/hr ONE ONE Administration Lactobacillus Acidophilus 625 mg 02/21/24 09:00 02/25/24 08:43 Advanced Probiotic 625 Mg Capsule PO 03/22/24 08:59 Not Given QAM KIRSTEN Levothyroxine Sodium 112 mcg 02/21/24 06:30 02/25/24 06:15 Levothyroxine Sodium 112 Mcg Tablet PO 03/22/24 06:29 112 mcg DAILYBB KIRSTEN Administration Lisinopril 2.5 mg 02/20/24 21:00 02/24/24 22:02 Lisinopril 2.5 Mg Tab PO 03/21/24 20:59 Not Given HS KIRSTEN Metoprolol Succinate 25 mg 02/21/24 09:00 02/25/24 08:42 Metoprolol Succ 25mg Ext Rel Tab PO 03/22/24 08:59 25 mg QAM KIRSTEN Administration Miscellaneous 1 each 02/21/24 00:00 02/25/24 08:36 Tacrolimus 0.1 % Ointment- Order Awaiting Action N/A 03/22/24 00:00 Not Given QS KIRSTEN Morphine Sulfate 2 mg 02/24/24 20:48 02/24/24 21:21 Morphine Sulfate 2 Mg/Ml Carp IV 03/09/24 20:47 2 mg Q8H PRN Administration Headache or Pain Multivitamins 1 tab 02/21/24 09:00 02/25/24 08:40 Multivitamin Tab PO 03/22/24 08:59 Not Given DAILY KIRSTEN Polyethylene Glycol 34 gm 02/21/24 09:00 02/25/24 08:37 Polyethylene (Miralax) 17 Gm Pack PO 03/22/24 08:59 Not Given DAILY KIRSTEN Potassium Phosphate 2 tab 02/23/24 09:00 02/25/24 12:15 Pot Phosphate Monobasic W/ Sod Tab PO 03/24/24 08:59 Not Given QID KIRSTEN Prednisone 40 mg 02/21/24 09:00 02/25/24 08:43 Prednisone 20 Mg Tab PO 02/28/24 00:00 Not Given QAM KIRSTEN Tramadol HCl 50 mg 02/20/24 21:00 02/25/24 08:41 Tramadol Hcl 50 Mg Tablet PO 03/21/24 20:59 50 mg AMHS KIRSTEN Administration Vitamin D 50 mcg 02/21/24 09:00 02/25/24 08:41 Cholecalciferol 25 Mcg (1000 Units) Tab PO 03/22/24 08:59 Not Given [facility] Zinc Sulfate 220 mg 02/21/24 09:00 02/25/24 08:43 Zinc Sulfate 220 Mg Capsule PO 03/22/24 08:59 Not Given [facility]
--- NOTE | 2024-02-25 17:23 | Nephrology Progress Note ---
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 plan to transition to TPN 02/24 so that should help some w/ po intake >>watch for refeeding syndrome as we start TPN -cont fluid limit 1.2 L toward which protein shakes and TPN don't count >>replete K and phos IV as needed > goal K is 4 for optimal sodium control; getting 40 mEq today IV K today and phos -avoid NSAIDS there is not much we can do to make her na much better. as long as 125+ it is acceptable for now. Care coordinated w/ Dr Bales regarding electrolyte repletion Admission and Anticipated Discharge Date Admission Date: February 20, 2024 Subjective seen on midday rounds; 2 daughters, , family friend at bedside. no stroke but found to have temporal osteomyelitis and extra axial abscess 4 cm abutting cerebellum on imaging; ID recommending IV abtx +/- invasive/ NS procedures to manage; family not inclined to aggressive intervention but abtx ok; pt to start TPN this PM; RN worried about IV access; refused prednisone today Review of Systems 2 Review of Systems: Other (ROS limited by pt fatigue; she denies sob or chest pain. no appetite still) Physical Exam 2 Constitutional: well developed (wakes up as I evaluate her and asks for sweet tea), + cachectic, + frail appearing and + lethargic Eyes: EOM intact bilaterally ENMT: Ears: no external ear abnormality Nose: no external nose abnormality Mouth: + dry oral mucous membranes Neck: no nuchal rigidity Respiratory: normal respiratory effort Auscultation: + diminished lung sounds Cardiovascular: RRR, no murmur, no edema Gastrointestinal (Abdomen): Inspection/Auscultation: normal bowel sounds P ercussion/Palpation: abdomen soft; abdomen nontender Musculoskeletal: Extremities: strength 5/5 throughout Skin: no rashes, warm and dry Results & Data Vital Signs (Past 12 Hours) Vital Signs Temp Pulse Pulse Resp BP BP Pulse Ox 02/25/24 14:41 36.5 C 90 18 156/75 H 98 02/25/24 08:00 02/25/24 07:51 36.8 C 76 16 185/97 H 98 O2 Del Method 02/25/24 14:41 Room Air 02/25/24 08:00 Room Air 02/25/24 07:51 Room Air Laboratory Results 02/25/24 06:38 02/25/24 06:38 ca, mag, phos all low Diagnostic Findings mri report reviewd
[2024-02-25] MEDS: POTASSIUM CHLORIDE / WTR 10 MEQ/100 ML PLCT IV SCH (17:47)
[2024-02-25] MEDS: VANCOMYCIN HCL 750 MG in SODIUM CHLORIDE 0.9% 250 ML IV SCH (19:47)
[2024-02-26 07:43] LABS: Basophils # (auto) 0.01 K/uL (0.00-0.20); Basophils % (auto) 0.1 %; Hematocrit (blood only) 33.6 % (37.0-47.0); Hemoglobin 11.3 g/dl (12.0-16.0); Immature Granulocytes # (auto) 0.07 K/uL (0.01-0.20); Immature Granulocytes % (auto) 0.6 %; Lymphocytes # (auto) 0.41 K/uL (1.20-3.40); Lymphocytes % (auto) 3.3 %; Mean Corpuscular Hemoglobin 27.6 pg (25.0-34.0); Mean Corpuscular Hgb Conc 33.6 g/dL (32.0-36.0); Mean Corpuscular Volume 82.2 fL (80.0-100.0); Mean Platelet Volume 8.6 fL (9.4-12.4); Monocytes # (auto) 1.16 K/uL (0.11-0.59); Monocytes % (auto) 9.3 %; Neutrophils # (auto) 10.89 K/uL (1.40-6.50); Neutrophils % (auto) 86.7 %; Platelet Count 368 K/uL (130-400); RDW Coefficient of Variation 14.9 % (11.5-14.5); RDW Standard Deviation 44.5 fL (36.4-46.3); Red Blood Count 4.09 M/uL (4.20-5.40); White Blood Count 12.54 K/ul (4.8-10.8)
[2024-02-26 08:09] LABS: Albumin Globulin Ratio 1.2 (0.9-2); Albumin Level 3.2 gm/dl (3.4-5.0); BUN Creatinine Ratio 27.7 (10-20); Bilirubin,Total 0.6 mg/dl (0.2-1.0); Calcium 6.5 mg/dl (8.6-10.3); Creatinine Clr Calc Pharmacy 61.7 ml/min; Est GFR (African American) 111.2 ml/min; Est GFR (Non-African American) 95.9 ml/min; Globulin 2.6 gm/dl (2.5-4.0); Magnesium 1.7 mg/dl (1.7-2.4); Phosphorus 1.6 mg/dl (2.5-4.9); Potassium 3.1 mmol/L (3.5-5.1); Total Protein 5.8 gm/dl (6.0-8.3)
[2024-02-26] MEDS: POTASSIUM CHLORIDE CRTAB 20 MEQ TABCR PO SCH (08:30)
[2024-02-26] MEDS ORDERED: POTASSIUM PHOS 3 MMOL/1 ML INFUSION IV STA (08:30)
[2024-02-26] MEDS: VANCOMYCIN LEVEL ONE (08:31)
[2024-02-26] MEDS: POTASSIUM PHOSPHATE 21 MMOL in SODIUM CHLORIDE 0.9% 500 ML IV ONE (10:07)
--- NOTE | 2024-02-26 11:19 | Pharmacy Report ---
Pharmacy Initial PN Consult Nt - Date of Service February 26, 2024 - Scope Pharmacy has been consulted on this date to manage parenteral nutrition orders and order appropriate labs. As part of the Nutrition Support Team Guidelines, pharmacy will work in conjunction with dietary when determining the patients caloric needs. - Subjective * The patient is a 78 year old Female admitted on 02/20/24 for FAILURE TO THRIVE, FALL. * Patient is to receive parenteral nutrition for prolonged poor PO intake secondary to thrush w/ patient preference to hold off on feeding tube at this time. * Pertinent PMHx: SIADH, CHF, concern for epidural abscess/temporal bone os teomyelitis, immunocompromised (chronic prednisone) - Objective Vascular Access: * Patient currently has a peripheral line. * Peripheral line was confirmed by IV Team to be acceptable for PPN use on 02/25/24. Height & Weight (Last Documented) Height 5 ft 2 in Weight 38.4 kg Diet Order(s) 02/24/24 Dinner Diet Intake & Ouput (24hrs) 02/25/24 02/26/24 02/27/24 06:59 06:59 06:59 Intake Total 1876.333 / 0515.116 9614.583 / 1795.583 265 / 265 Output Total 2201 / 2201 1450 / 1450 Balance -324.667 / -324.667 345.583 / 345.583 265 / 265 Selected Laboratory Results 02/26/24 06:45 Sodium 128 L Potassium 3.1 L Chloride 93 L Carbon Dioxide 22 Anion Gap 13 H BUN 13 Creatinine 0.47 L Est GFR ( Amer) 111.2 Est GFR (Non-Af Amer) 95.9 BUN/Creatinine Ratio 27.7 H Glucose 74 Calcium 6.5 L Phosphorus 1.6 L Magnesium 1.7 Total Bilirubin 0.6 AST 35 ALT 13 Alkaline Phosphatase [address] - Follow Up Nutrition Assessment Start: 02/21/24 15:34 Freq: Status: Active Protocol: Document 02/25/24 10:58 ELM (Rec: 02/25/24 11:38 ELM [id number]) Co-signed By Jalen Turk RD - Initial Nutrition Assessment Start: 02/21/24 15:13 Freq: Status: Active Protocol: Document 02/21/24 15:13 WN (Rec: 02/21/24 15:34 WN [email or web address]) - Assessment & Plan Assessment: * Appreciate dietitians recommendations for macronutrients. * Electrolytes remain abnormal (hypokalemia, hyponatremia, hypochloremia, hypocalcemia, and hypophosphatemia). Hospitalist ordered additional 21 mmol potassium phosphate IV and 1 g calcium gluconate IV prior to PN initiation. * Will be limited by osmolarity, but will supplement electrolyte needs as best as possible today. * Confirmed with nephrology, okay to use dietary recommended goal volume for PN (will not count towards fluid restriction) * Triglycerides of 84 mg/dL - will give lipids today. * Patient at risk for refeeding syndrome - thiamine added to bag. Still reasonable to start at goal volume of Clinimix, as it is only 72 grams of dextrose/day. Plan: * For Day #1 of PPN administration, the following will be ordered: * Macronutrients: * Amino Acids: 61 grams/day * Dextrose: 72 grams/day * Lipids: 50 grams/day * Micronutrients: * Sodium chloride: 120 mEq/day * Potassium phosphate: 24 mMol/day * Potassium acetate: 40 mEq/day * Magnesium sulfate: 4.06 mEq/day * Calcium gluconate: 9.3 mEq/day * Multivitamins: 10 mL/day * Trace elements: 1 mL/day * Thiamine: 100 mg/day * Folic Acid: 1 mg/day * Total volume of 1549 mL will be infused over 24 hours and will provide 990 kcal/day * Patient is on PPN which has a maximum mOsm/L of 900. Final osmolarity of current solution is 885 mOsm/L. * Labs will be ordered per PN protocol. * Pharmacy will follow and adjust PN orders on a daily basis. Thank you!
--- NOTE | 2024-02-26 14:16 | Pharmacy Report ---
Pharmacy PK ABX Note - Date of Service February 26, 2024 - Assessment and Plan Assessment 78 year old F receiving empiric vancomycin, cefepime, and metronidazole for treatment of epidural abscess/temporal bone osteomyelitis based on brain MRI findings. Infectious diseases consulted and recommending extended duration of broad spectrum antibiotics vs. surgical intervention. Patient w/ complicated PMH including failure to thrive, SIADH, CHF, immunocompromise (chronic prednisone), and esophageal candidiasis (receiving fluconazole). No culture data. Renal function appears to be at/near baseline. Patient afebrile over past 48 hours, but w/ continued leukocytosis (WBC: ~12.5 K). Day # 3 of antimicrobial therapy. Plan Vancomycin * Current regimen: 750 mg IV every 12 hours * Random level obtained 02/26/24 resulted as 9.6 mcg/mL. This is predicted to achieve target AUC/GISELE of 400-600 mg/L.hr * Predicted AUC at steady state: 506 mg/L.hr * Continue 750 mg IV every 12 hours * Will repeat level in the next 48-72 hours if therapy is continued and/or change in patient clinical status * If patient condition worsens, consider increasing dose of vancomycin Cefepime * 2 g IV q8h - reasonable at this time. Questionable CrCl >60, given low body weight and very low SCr, but reasonable to maintain aggressive dosing based on type of infection. Consider dose reduction if worsening renal function or extended duration of therapy. Pharmacy will continue to follow and will adjust dose/frequency as necessary. Thank you. Pharmacy has transitioned to AUC monitoring for vancomycin. AUC/GISELE is the preferred PK/PD target and is associated with decreased risk of nephrotoxicity compared to traditional trough targets.
[2024-02-26] MEDS ORDERED: LORazepam 0.5 MG TAB PO PRN (14:27)
[2024-02-26] MEDS: MoRPHine SULFATE 2 MG/ML CARP IV PRN (15:00)
--- NOTE | 2024-02-26 16:53 | Hospitalist Progress Note ---
Date of Service February 26, 2024 Assessment & Plan (1) Adult failure to thrive: (2) Generalized weakness: (3) Fall: (4) Dysphagia: (5) GERD (gastroesophageal reflux disease): (6) SIADH (syndrome of inappropriate ADH production): (7) (HFpEF) heart failure with preserved ejection fraction: (8) Hypertension: (9) CAD (coronary artery disease): (10) Hypothyroidism: (11) Giant cell arteritis: (12) Raynaud's disease: Plan 78-year-old female with PMHx of SIADH, hypothyroidism, hyperlipidemia, history of allergic rhinitis, chronic diastolic CHF, history of CAD, status post stent to LAD, history of hypertension, legal blindness, history of retinal artery occlusion, orthostatic hypotension, Raynaud disease, constipation, osteoporosis, SLE, generalized anxiety disorder, cachectic state, chronic anemia, CVA, 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 Epidural Abscess Temporal bone osteomyelitis Pt was a stroke alert on 02/[address], CTA and neck CTA with no acute stroke Brain MRI with new epidural abscess Also concern for temporal bone osteomyelitis Currently on IV Vanc, cefepime, Flagyl Family declining neurosurgical evaluation at this time ID evaluation and recs noted Blood cultures in lab. Will need at least 6 weeks of antibiotics with repeat imaging Likely in setting of immunocompromised status (see below), on chronic prednisone and plaquanil at this time. CONSIDER DISCONTINUATION AFTER FAMILY DISCUSSION IN SETTING OF NEED TO TREAT INFECTION (holding home plaquanil, consider prednisone taper) Family had palliative care discussion Declined neurosurgical evaluation Dysphagia Esophageal candidiasis Immunocompromised status Presented with dysphagia over the last 5 days Pt with previous Hx of self restricting GI consulted, appreciate recs s/p EGD on 02/20 which noted candidiasis throughout the esophagus Started diflucan 400mg on 02/20, then 200mg daily for 20 more days Encourage oral intake Continue to monitor for signs of improvement On immunosuppressants plaquanil and prednisone -plaquenil on hold -currently on her daily prednisone Generalized Weakness Severe Protein Calorie Malnutrition Adult Failure to thrive Pt with BMI of 15 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, appreciate recs Encourage po intake, family requesting temporary IV nutrition PT/OT PPN to start today after electrolyte repletion- monitor for refeeding syndrome Anemia Hgb around 11, previous baseline lower around 9 Possibly higher due to hemoconcentration in setting of dehydration (see below) AM anemia workup reviewed Supplement as needed based on the results Continue to monitor H/H Hyponatremia Appears chronic Sodium around 127-129 Nephrology eval and recs noted Hypophosphatemia Hypokalemia Continue aggressive repletion Dehydration Ketonuria Ketonuria noted on UA NSS x 2 bags Impacted Cerumen Debrox ear drops ordered Outpatient ENT followup after discharge HTN Continue home meds CHF Pt with noted history of diastolic dysfunction on Echo from 2017 Currently stable Monitor volume status CAD Continue home aspirin and plavix Hypothyroidism Continue levothyroxine Possible Giant cell arteritis Being worked up by Dr. Dawn as outpatient, was scheduled day after admission for surgical biopsy however will miss this and will need rescheduled for follow- up Continue prednisone 40 mg daily currently, scheduled to reduce down to 20 mg on 02/26 to continue taper as per outpatient recs Will reeval possible taper tomorrow Pain likely related to temporal bone OM as above. Also on tramadol 50 mg BID per pcp PRN morphine ordered. Dose reduced today per Palliative Raynaud's disease Chronic, stable DVT prophylaxis: pt on plavix and aspirin with known anemia. Will continue with SCDs for DVT prophylaxis at this time. Diet: regular, minced and moist Dispo: PT/OT ordered I spent a total of 50 minutes coordinating, documenting and providing care for this patient excluding time spent in performance of separately billed services Admission and Anticipated Discharge Date Admission Date: February 20, 2024 Subjective Patient seen and examined. and 2 daughters at bedside. Patient has hearing deficits. Able to answer simple question. Communicates to patient by speaking loudly. Patient reports pain. When asked to localize pain, she says all over Physical Exam Constitutional: + well hydrated and + cachectic; no acut e distress Eyes: PERRL, conjunctivae normal, anicteric sclerae ENMT: Hearing deficit Respiratory: normal respiratory effort, lungs clear to auscultation Cardiovascular: Rate/Rhythm: regular rate and regular rhythm S1-S2 Gastrointestinal (Abdomen): normal bowel sounds, soft, nontender, no hepatosplenomegaly Musculoskeletal: No pedal edema Neurologic: PERRL, EOMI, accommodation nl, no face palsy, no dysarthria Psychiatric: Alert and oriented to person. Obeys commands Results & Data Results & Data Vital Signs (Past 12 Hours) Vital Signs Temp Pulse Resp BP Pulse Ox O2 Del Method 02/26/24 15:15 36.9 C 82 16 165/92 H 98 Room Air 02/26/24 07:50 Room Air 02/26/24 07:44 36.6 C 82 16 146/87 H 98 Room Air Laboratory Results Abnormal lab results 02/26/24 Range/Units 06:45 WBC 12.54 H (4.8-10.8) K/ul RBC 4.09 L (4.20-5.40) M/uL Hgb 11.3 L (12.0-16.0) g/dl Hct 33.6 L (37.0-47.0) % RDW Coeff of [place] 14.9 H (11.5-14.5) % MPV 8.6 L (9.4-12.4) fL Neut # (Auto) 10.89 H (1.40-6.50) K/uL Lymph # (Auto) 0.41 L (1.20-3.40) K/uL [place] # (Auto) 1.16 H (0.11-0.59) K/uL Sodium 128 L (136-145) mmol/L Potassium 3.1 L (3.5-5.1) mmol/L Chloride 93 L (98-107) mmol/L Anion Gap 13 H (3-11) Creatinine 0.47 L (0.6-1.2) mg/dl BUN/Creatinine Ratio 27.7 H (10-20) Calcium 6.5 L (8.6-10.3) mg/dl Phosphorus 1.6 L (2.5-4.9) mg/dl Total Protein 5.8 L (6.0-8.3) gm/dl Albumin 3.2 L (3.4-5.0) gm/dl Random Vancomycin 9.6 L (10-20) mcg/ml
[2024-02-26] MEDS: [UNRECOGNIZED DRUG - OTHER] IV SCH (16:58)
[2024-02-26] MEDS: CLINOLIPID 20% IV FAT EMULSION 250 ML IV SCH (16:58)
[2024-02-26] MEDS: PERIPHERAL TPN IV SCH (16:58)
[2024-02-26] MEDS: CALCIUM GLUCONATE 10% 1,000 MG in NS X1 BAG IV ONE (17:29)
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
--- NOTE | 2024-02-26 19:04 | Palliative Family Discussion ---
Date of Service February 26, 2024 Patient Directed Conference Time of [id number] Participants: Juliana Gomes DNP Patient participation: yes Patient Support System: yes Other Healthcare Provider Participation: None Meeting Location: pt bedside and then in CR6 Advanced Directive available: yes she reaffirms DNr/DNI The patient's surrogate medical decision maker participated: Yes, dtr Cathy is mPOA A family meeting was held for LEYLA Harrington BOOKER. This meeting was necessary for determining the appropriate course of treatment. Topics of Discussion Topics of Discussion: I met face to face with Leyla together with her RN, Jose Alberto for 20min at bedside. We reviewed her goals. She states she is in pain and wants this to improve. She did not want to stop treatment with IV Abtx but wants pain improved. She has avoiding eating much d/t thrush pain. She is drinking fairly well. Tolerating popsicles and other cooler foods. She does not want comfort care She is not looking for EOL care She does not want to return home to the care of her She does not want to burden her daughters but is afraid of skilled nursing care bc of her multisensory deficits and how vulnerable this makes her feel. She is agreeable to a trial of Abtx and see if things improve. She reiterates she is not ready to but is feeling her QOL just isn't great anymore and it is starting to wear her down. She reaffirms DNR/DNI and she reaffirms daughter Latonya is her only mPOA and the only people we should be seeking guidance re her care from are her daughters. She worries she will not have care she wants if forced to go to skilled nursing She is aware of her medical issues. 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 She for now does not want aggressive surgical interventions but wants to see if conservative medical mgt can help. She is willing to try TPN which is going to start later today. She asked me to update her family. I then met face to face with and both daughters in CR6 for 45min. There is a lot of family tension. Latonya admits they have established an agreement with they will not fake polite chit chat and each republican remains in their own corner of the room with pt. Both daughters are here everyday as well, per pt request. I was asked if she is competent and I advised she is decisionally competent and can make all her own decisions. She understands the implications of her decisions. She does not need anyone else to make decisions for her at this time. I reviewed her expressed wishes and desire to try Abtx and continue thrush rx. TPN starting today. We discussed she is sick and it is serious. Certainly there is potential for things to worsen and she is clear if she does not improve or if things acutely worsen, she wants to be comfort care. They are all in agreement. Offered family additional support, they declined further interventions and for now feel keeping distance between Leah and themselves if best for all. We discussed her depression and fatigue. 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 They were in agreement. All questions were answered to their apparent satisfaction. Total ACP time spent in both meetings combined was 65min Other Content of Meetin. Opportunity given for participants to speak and ask questions. 2. Participants were assured of attention to patient comfort. 3. Reassurance provided. 4. Support was provided for informed, good-jessica decisions. 5. Emotions expressed by family were acknowledged and addressed. patient and the visitors. Time Involved in Meeting: I spent 65 minutes overall addressing this case in addition to my clinical evaluation of pt in separate visit: 65 Advance Care Planning/Goals of Care discussions as detailed above in note (must be >16min) Thank you for allowing us to participate in the ongoing care of this patient. Please don't hesitate to call or page with any additional concerns. Dr. Juliana Gomes DNP Director, Palliative Care
--- NOTE | 2024-02-26 20:47 | Nephrology Progress Note ---
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 plan to transition to TPN 02/24 so that should help some w/ po intake >>>>watch for refeeding syndrome as we start TPN >> have ordered labs for 1300 as well as AM ones so that there's time to replete if needed before starting TPN in PM -cont fluid limit 1.2 L toward which protein shakes and TPN don't count >>replete K and phos IV as needed > goal K is 4 for optimal sodium control; getting 40 mEq today IV K today and phos -avoid NSAIDS as long as sNa 125+ it is acceptable for now. may start to improve w/ TPN Admission and Anticipated Discharge Date Admission Date: February 20, 2024 Subjective seen on late afternoon rounds. resting quietly. still very tired, minimal po. some throat pain at times; palliative cont to follow. starting TPN tonight. Review of Systems 2 Review of Systems: All systems reviewed & are unremarkable except as noted in Subjective Physical Exam 2 Constitutional: well developed, + cachectic, + frail appearing and + lethargic Eyes: EOM intact bilaterally ENMT: Ears: no external ear abnormality Nose: no external nose abnormality Mouth: + dry oral mucous membranes Neck: no nuchal rigidity Respiratory: normal respiratory effort Auscultation: + diminished lung sounds Cardiovascular: RRR, no murmur, no edema Gastrointestinal (Abdomen): Inspection/Auscultation: normal bowel sounds P ercussion/Palpation: abdomen soft; abdomen nontender Musculoskeletal: Extremities: strength 5/5 throughout Skin: no rashes, warm and dry Results & Data Vital Signs (Past 12 Hours) Vital Signs Temp Pulse Resp BP Pulse Ox O2 Del Method 02/26/24 15:15 36.9 C 82 16 165/92 H 98 Room Air Laboratory Results 02/26/24 06:45 02/26/24 06:45
[2024-02-26] MEDS: LORazepam 0.25 MG in SYRINGE 0.125 ML IV PRN (21:39)
[2024-02-27 06:47] LABS: Basophils # (auto) 0.01 K/uL (0.00-0.20); Basophils % (auto) 0.1 %; Hematocrit (blood only) 29.9 % (37.0-47.0); Hemoglobin 10.5 g/dl (12.0-16.0); Immature Granulocytes # (auto) 0.05 K/uL (0.01-0.20); Immature Granulocytes % (auto) 0.5 %; Lymphocytes # (auto) 0.43 K/uL (1.20-3.40); Lymphocytes % (auto) 4.5 %; Mean Corpuscular Hemoglobin 28.8 pg (25.0-34.0); Mean Corpuscular Hgb Conc 35.1 g/dL (32.0-36.0); Mean Corpuscular Volume 82.1 fL (80.0-100.0); Mean Platelet Volume 8.5 fL (9.4-12.4); Monocytes # (auto) 1.28 K/uL (0.11-0.59); Monocytes % (auto) 13.5 %; Neutrophils % (auto) 81.4 %; Platelet Count 332 K/uL (130-400); RDW Coefficient of Variation 14.9 % (11.5-14.5); RDW Standard Deviation 44.1 fL (36.4-46.3); Red Blood Count 3.64 M/uL (4.20-5.40); White Blood Count 9.47 K/ul (4.8-10.8)
[2024-02-27 06:55] LABS: Albumin Globulin Ratio 1.1 (0.9-2); Albumin Level 2.9 gm/dl (3.4-5.0); BUN Creatinine Ratio 32.7 (10-20); Bilirubin,Total 0.5 mg/dl (0.2-1.0); Calcium 6.5 mg/dl (8.6-10.3); Creatinine Clr Calc Pharmacy 52.8 ml/min; Est GFR (African American) 105.6 ml/min; Est GFR (Non-African American) 91.1 ml/min; Globulin 2.6 gm/dl (2.5-4.0); Magnesium 1.8 mg/dl (1.7-2.4); Phosphorus 1.7 mg/dl (2.5-4.9); Potassium 3.6 mmol/L (3.5-5.1); Total Protein 5.5 gm/dl (6.0-8.3)
[2024-02-27] MEDS ORDERED: POTASSIUM PHOS 3 MMOL/1 ML INFUSION IV STA (12:33)
[2024-02-27] MEDS ORDERED: STAT IV/IM STA (12:33)
--- NOTE | 2024-02-27 12:35 | Hospitalist Progress Note ---
Date of Service February 27, 2024 Assessment & Plan (1) Adult failure to thrive: (2) Generalized weakness: (3) Fall: (4) Dysphagia: (5) GERD (gastroesophageal reflux disease): (6) SIADH (syndrome of inappropriate ADH production): (7) (HFpEF) heart failure with preserved ejection fraction: (8) Hypertension: (9) CAD (coronary artery disease): (10) Hypothyroidism: (11) Giant cell arteritis: (12) Raynaud's disease: Plan 78-year-old female with PMHx of SIADH, hypothyroidism, hyperlipidemia, history of allergic rhinitis, chronic diastolic CHF, history of CAD, status post stent to LAD, history of hypertension, legal blindness, history of retinal artery occlusion, orthostatic hypotension, Raynaud disease, constipation, osteoporosis, SLE, generalized anxiety disorder, cachectic state, chronic anemia, CVA, 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 Epidural Abscess Temporal bone osteomyelitis Pt was a stroke alert on 02/[address], CTA and neck CTA with no acute stroke Brain MRI with new epidural abscess Also concern for temporal bone osteomyelitis Currently on IV Vanc, cefepime, Flagyl Family declining neurosurgical evaluation at this time ID evaluation and recs noted Blood cultures in lab. Will need at least 6 weeks of antibiotics with repeat imaging Likely in setting of immunocompromised status (see below), on chronic prednisone and plaquanil at this time. CONSIDER DISCONTINUATION AFTER FAMILY DISCUSSION IN SETTING OF NEED TO TREAT INFECTION (holding home plaquanil, consider prednisone taper) Family had palliative care discussion Declined neurosurgical evaluation Dysphagia Esophageal candidiasis Immunocompromised status Presented with dysphagia over the last 5 days Pt with previous Hx of self restricting GI consulted, appreciate recs s/p EGD on 02/20 which noted candidiasis throughout the esophagus Started diflucan 400mg on 02/20, then 200mg daily for 20 more days Encourage oral intake Continue to monitor for signs of improvement On immunosuppressants plaquanil and prednisone -plaquenil on hold -currently on her daily prednisone Generalized Weakness Severe Protein Calorie Malnutrition Adult Failure to thrive Pt with BMI of 15 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, appreciate recs Encourage po intake, family requesting temporary IV nutrition PT/OT PPN to start today after electrolyte repletion- monitor for refeeding syndrome Anemia Hgb around 11, previous baseline lower around 9 Possibly higher due to hemoconcentration in setting of dehydration (see below) AM anemia workup reviewed Supplement as needed based on the results Continue to monitor H/H Hyponatremia Appears chronic Sodium around 127-129 Nephrology eval and recs noted Hypophosphatemia Hypokalemia Continue aggressive repletion Impacted Cerumen Debrox ear drops ordered Outpatient ENT followup after discharge HTN Continue home meds CHF Pt with noted history of diastolic dysfunction on Echo from 2017 Currently stable Monitor volume status CAD Continue home aspirin and plavix Hypothyroidism Continue levothyroxine Per outpatient chart review, She saw ENT on 12/23/23 and was managed for left otits externa Was seen by PCP on 12/27/23 for left otitis media Saw ENT again on 01/06/24 for left ear otorrhea Seen by PCP again on 01/15/24 There was report of being worked up for possible GCA Based on chart review, presentation and eventual findings on MRI brain on admission of left temporal OM and abscess, I doubt she has GCA Since she was on prednisone since 02/13/24, will do a quick taper off Raynaud's disease Chronic, stable DVT prophylaxis: pt on plavix and aspirin with known anemia. Will continue with SCDs for DVT prophylaxis at this time. Diet: regular, minced and moist Dispo: PT/OT ordered I spent a total of 40 minutes coordinating, documenting and providing care for this patient excluding time spent in performance of separately billed services Admission and Anticipated Discharge Date Admission Date: February 20, 2024 Subjective Patient seen and examined. 2 daughters at bedside Patient has no new complaints and wanted to be left alone to sleep Daughters reported she was more active today but currently sleepy after she got some pain meds. Physical Exam Constitutional: + well hydrated and + cachectic; no acut e distress Eyes: PERRL, conjunctivae normal, anicteric sclerae ENMT: external ear and nose normal, oropharynx normal +Hearing deficits Respiratory: normal respiratory effort, lungs clear to auscultation Cardiovascular: Rate/Rhythm: regular rate and regular rhythm S1 S2 Gastrointestinal (Abdomen): normal bowel sounds, soft, nontender, no hepatosplenomegaly Musculoskeletal: No pedal edema Neurologic: PERRL, EOMI, accommodation nl, no face palsy, no dysarthria Results & Data Results & Data Vital Signs (Past 12 Hours) Vital Signs Temp Pulse Resp BP Pulse Ox O2 Del Method 02/27/24 09:10 Room Air 02/27/24 07:37 36.6 C 72 15 156/89 H 99 Room Air 02/27/24 01:37 Room Air Laboratory Results Abnormal lab results 02/26/24 02/27/24 02/27/24 Range/Units 18:35 00:08 05:19 RBC (4.20-5.40) M/uL Hgb (12.0-16.0) g/dl Hct (37.0-47.0) % RDW Coeff of [place] (11.5-14.5) % MPV (9.4-12.4) fL Neut # (Auto) (1.40-6.50) K/uL Lymph # (Auto) (1.20-3.40) K/uL [place] # (Auto) (0.11-0.59) K/uL Sodium (136-145) mmol/L Chloride (98-107) mmol/L Creatinine (0.6-1.2) mg/dl BUN/Creatinine Ratio (10-20) Glucose (70-99(Fasting)) mg/dl POC Glucose 128 H 159 H 156 H (70-99) mg/dl Calcium (8.6-10.3) mg/dl Phosphorus (2.5-4.9) mg/dl Total Protein (6.0-8.3) gm/dl Albumin (3.4-5.0) gm/dl 02/27/24 02/27/24 02/27/24 Range/Units 06:02 11:59 12:33 RBC 3.64 L (4.20-5.40) M/uL Hgb 10.5 L (12.0-16.0) g/dl Hct 29.9 L (37.0-47.0) % RDW Coeff of [place] 14.9 H (11.5-14.5) % MPV 8.5 L (9.4-12.4) fL Neut # (Auto) 7.70 H (1.40-6.50) K/uL Lymph # (Auto) 0.43 L (1.20-3.40) K/uL [place] # (Auto) 1.28 H (0.11-0.59) K/uL Sodium 129 L 127 L (136-145) mmol/L Chloride 96 L 97 L (98-107) mmol/L Creatinine 0.55 L 0.44 L (0.6-1.2) mg/dl BUN/Creatinine Ratio 32.7 H 45.5 H (10-20) Glucose 128 H 149 H (70-99(Fasting)) mg/dl POC Glucose 145 H (70-99) mg/dl Calcium 6.5 L 6.4 L (8.6-10.3) mg/dl Phosphorus 1.7 L 1.5 L* (2.5-4.9) mg/dl Total Protein 5.5 L (6.0-8.3) gm/dl Albumin 2.9 L (3.4-5.0) gm/dl
[2024-02-27 13:24] LABS: BUN Creatinine Ratio 45.5 (10-20); Calcium 6.4 mg/dl (8.6-10.3); Creatinine Clr Calc Pharmacy 65.9 ml/min; Est GFR (African American) 113.6 ml/min; Est GFR (Non-African American) 98.1 ml/min; Magnesium 1.8 mg/dl (1.7-2.4); Phosphorus 1.5 mg/dl (2.5-4.9); Potassium 3.8 mmol/L (3.5-5.1)
[2024-02-27] MEDS: CALCIUM GLUCONATE 10% 1,000 MG in SODIUM CHLOR 0.9% MINI-B 50 ML IV ONE (13:52)
[2024-02-27] MEDS: POTASSIUM PHOSPHATE 30 MMOL in SODIUM CHLORIDE 0.9% 500 ML IV ONE (14:30)
[2024-02-27] MEDS: CLINOLIPID 20% IV FAT EMULSION 250 ML IV SCH (16:50)
[2024-02-27] MEDS: PERIPHERAL TPN IV SCH (16:50)
[2024-02-27] MEDS: [UNRECOGNIZED DRUG - OTHER] IV SCH (16:50)
[2024-02-28 06:08] LABS: BUN Creatinine Ratio 46.8 (10-20); Calcium 7.1 mg/dl (8.6-10.3); Creatinine Clr Calc Pharmacy 61.7 ml/min; Est GFR (African American) 111.2 ml/min; Est GFR (Non-African American) 95.9 ml/min; Magnesium 1.8 mg/dl (1.7-2.4); Phosphorus 1.9 mg/dl (2.5-4.9); Potassium 4.1 mmol/L (3.5-5.1)
[2024-02-28] MEDS: VANCOMYCIN LEVEL ONE (06:21)
[2024-02-28] MEDS: predniSONE 20 MG TAB PO SCH (07:48)
[2024-02-28] MEDS ORDERED: SODIUM PHOSPHATE 3 MMOL/1 ML INFUSION IV STA (08:26)
[2024-02-28] MEDS: MoRPHine SULFATE 2 MG/ML CARP IV STA (09:34)
[2024-02-28] MEDS ORDERED: ONDANSETRON 4 MG OD TAB SL PRN (10:32)
[2024-02-28] MEDS ORDERED: LORazepam 0.5 MG TAB PO PRN (10:32)
[2024-02-28] MEDS ORDERED: ONDANSETRON INJ 2 MG/ML 2 ML VIAL IV PRN (10:32)
[2024-02-28] MEDS ORDERED: LORazepam 0.5 MG in SYRINGE 0.25 ML IV PRN (10:32)
[2024-02-28] MEDS ORDERED: MoRPHine BOLUS from BAG IV PRN (10:32)
[2024-02-28] MEDS ORDERED: STAT IV Infusion **Titration per Protocol STA (10:32)
[2024-02-28] MEDS ORDERED: LORAZEPAM IV PRN (10:39)
[2024-02-28] MEDS ORDERED: MoRPHine SULFATE 2 MG/ML CARP IV PRN (10:39)
[2024-02-28] MEDS: SODIUM PHOSPHATE 21 MMOL in SODIUM CHLORIDE 0.9% 500 ML IV ONE (10:41)
[2024-02-28] MEDS: MoRPHine SULF/NSS 100 MG/100 ML BAG IV SCH (11:13)
[2024-02-28] MEDS: MoRPHine BOLUS from BAG IV ONE (11:17)
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
[2024-02-28] MEDS: MoRPHine BOLUS from BAG IV PRN (12:38)
[2024-02-28] MEDS: LORazepam 1 MG in SYRINGE 0.5 ML IV PRN (12:47)
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
--- NOTE | 2024-03-03 07:25 | Discharge Summary ---
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 Sometimes reports it happens with hot or cold foods. She has had a restrictive food issue with for many years, where she would count her food items such as peices of food, weigh food, calorie restrict, but denies extreme exercise and states she does not exercise at all currently due to weakness. She is agreeable to seeing a psychiatrist times hospitalization. Pt is agreeable to starting medication for appetite stimulation as well. Pt has ensure at home, but only drinks a small amount of it daily per family. Family is concerned that she is having difficulty caring for herself as well as elderly at home. She has been recently worked up for gait instability, middle ear effusion and was seen here in the ER about 1 month ago for such, was deemed to have giant cell arteritis as outpatient, following with ENT in the near future. Patient was scheduled to have outpatient surgical consultation for possible biopsy tomorrow, as well as ENT follow-up. Unfortunately she will miss these appointments due to being hospitalized, discussed with family at bedside to ensure that she gets rescheduled. She complains that she has significant pain in the left side of head going across her forehead at times, has been taking prednisone 40 mg daily, however about 5 days left of this 2-week timeframe and then is supposed to taper down to 20 mg daily for another 2 weeks. She is also using tramadol for pain relief twice daily. " Patient admits to significant weakness throughout, states that she just does not feel well-balanced, has difficulty doing simple ADLs at times, and fell twice within the past few days once each evening. She states she had been reaching for her walker during each of these events and missed it and fell to the ground. Denies any hitting of her head or loss of consciousness. She lives at home with her , Jose Alberto who is present at bedside. Her 2 daughters names Maria M and staff are also present at bedside and supports the history. They are hopeful that she can have inpatient rehab stay after this hospitalization due to her significant imbalance/gait issues and falls. Admission Exam Per Admitting Provider General: awake, alert, no apparent distress, cachectic white female Head: Normocephalic, atraumatic ENT: PERRL, EOMI, no pharyngeal exudate, mucous membranes moist Chest: Clear to auscultation, on room air, O2 sats 96%, no adventitious breath sounds Cardiac: Regular rate and rhythm, no murmur, no JVD, normal peripheral pulses, good capillary refill Abdominal: NABS x 4 quadrants, soft, nondistended, nontender to palpation, no rebound or guarding Extremities: + Diffuse muscle tone atrophy, muscular wasting, temporal wasting, + multiple areas of ecchymosis on her shins as well as her forearms from falls, no peripheral edema or erythema, calfs nontender to palpation Psych: Normal mood and affect Neuro: AAO x 3, strength intact bilaterally and rated 4/5, no motor deficits, speech is clear, no peripheral sensory deficits Principal Diagnosis Intracranial abscess Temporal bone osteomyelitis Esophageal candidiasis Failure to thrive Discharge Exam Discharge Data Allergies Allergy/AdvReac Type Severity Reaction Status Date / Time venlafaxine Allergy Mild RASH Verified 02/02/23 17:38 Sulfa (Sulfonamide Allergy Unknown UNKNOWN Verified 02/02/23 17:38 Antibiotics) REACTION TO SULFA DRUGS tomato AdvReac Unknown Verified 02/02/23 17:38 Consultations 02/20/24 15:31 ED Decision to Admit Stat 02/20/24 15:48 Consult Gastroenterology Routine 02/22/24 14:37 Consult Behavioral Health Liaison Routine 02/23/24 08:02 Consult Nephrology Routine 02/24/24 11:39 Consult Palliative Care Routine 02/24/24 14:37 Consult Gastroenterology Routine 02/24/24 20:23 Consult Infectious Diseases Routine Procedures Performed Operation Date: 02/21/24 16:30 Actual Procedures p Esophagogastroduodenoscopy - Franko Gregg Case, DO Ordered Studies 02/20/24 11:41 CT cervical spine wo con Stat CT head/brain wo con Stat 02/24/24 11:37 CT head/brain wo con Stat CTA neck with con [CT angio neck with con] Stat 02/24/24 11:38 CTA head w con [CT angio head w con] Stat 02/24/24 14:35 MRI Brain [MR brain wo/w con] Urgent Hospital Course (1) Adult failure to thrive: (2) Generalized weakness: (3) Fall: (4) Dysphagia: (5) GERD (gastroesophageal reflux disease): (6) SIADH (syndrome of inappropriate ADH production): (7) (HFpEF) heart failure with preserved ejection fraction: (8) Hypertension: (9) CAD (coronary artery disease): (10) Hypothyroidism: (11) Giant cell arteritis: (12) Raynaud's disease: Plan 78-year-old female with PMHx of SIADH, hypothyroidism, hyperlipidemia, history of allergic rhinitis, chronic diastolic CHF, history of CAD, status post stent to LAD, history of hypertension, legal blindness, history of retinal artery occlusion, orthostatic hypotension, Raynaud disease, constipation, osteoporosis, SLE, generalized anxiety disorder, cachectic state, chronic anemia, CVA, 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 Intracranial abscess Temporal bone osteomyelitis Pt was a stroke alert on 02/[address], CTA and neck CTA with no acute stroke Brain MRI was concerning for signal abnormality within the left basilar cisterns centered within the cerebellar pontine angle with peripheral enhancement suggestive of an extra-axial 4 cm abscess abutting the left cerebellar tentorium. Also concern for temporal bone osteomyelitis Was managed with IV antibiotics Family declined neurosurgical evaluation at this time Dysphagia Esophageal candidiasis Immunocompromised status Presented with dysphagia Pt with previous Hx of self restricting s/p EGD on 02/20 which noted candidiasis throughout the esophagus Was on diflucan Generalized Weakness Severe Protein Calorie Malnutrition Adult Failure to thrive Pt with BMI of 15 Was on PPN briefly Patient and family decided to stop all active treatment and proceeded to Comfort measure only Patient was transitioned to FLOOR SCRUBBER with aid of Palliative team Patient was pronounced at 4:15AM on 03/03/[address] Vieyra Total Time Total Time Spent Total Time Spent (In Minutes): 15 Total Time Includes: Other Discharge Plan Discharge Items Patient Disposition: Other Date/Time: 03/03/24 04:15
--- NOTE | 2024-03-03 07:25 | Death Pronouncement Note ---
Date of Service March 03, 2024 Pronouncement Note Admission Date February 20, 2024 Date and Time of Date of : 03/03/24 Time of : 04:15 Additional Data Confirmation of : no pulse, no respirations and pupils fixed and dilated Pronouncement Performed By: Attending Physician Family: at bedside Attending physician: Yanick Vieyra MD
== END 2024-03-03 06:39 | disposition expired | DRG 640 ==
LOC: ED 10:57 → 3W 15:48 → SUATTDRO 15:48 → 3W 17:03